=== PATIENT | female | born 1950 | race Two or more races ===

== ENCOUNTER → 2016-11-01 | Day surgery (SDC) | payer MEDICARE, OTHER ==
[~2016-11-01] VITALS: Ht 157.5 cm; Wt 62.6 kg
[~2016-11-01] MED LIST: ACET325T9 PO; ALBU2.5V5 NEB; ALEN70TA5 PO; ALLO100T PO; ALLO100T66 PO; AMLO10TA4 PO; AMOX1TAB61 PO; ASPI81TA44 PO; BUPIVACAINE MPF 0.5% 30 ML VIAL. ONE; CALC-431 PO; CARV3.12 PO; CEFAZOLIN 1GM IVPB FOR OMNI 50 ML IV PRN; CETI10TA16 PO; CLON0.1T PO; CLON1PAT2 TD; CYCL10TA2 PO; Clonidine TD; DESFLURANE 31 TO 60 MINUTES IH ONE; DEXAMETHASONE SOD PHOS 20 MG/5 ML VIAL. ONE; DOCU-27 PO; Doxycycline Hyclate PO; ERGO500012 PO; FENTANYL PF 100 MCG/2 ML VIAL. IV PRN; FENTANYL PF 100 MCG/2 ML VIAL. ONE; FLUT9.9S NS; GABA-585 PO; GUAI-42 PO; HYDR-2762 PO; HYDR-971 PO; HYDR1TAB26 PO; HYDROCODONE/APAP 7.5/325MG TABLET. PO ONE; HYDROMORPHONE 2 MG/ML VIAL. IV PRN; INSU100I13 SQ; INSU100I17 SQ; INSU100V5 IJ; IV NORMAL SALINE 1000ML BAG 1,000 ML IV ONE; IV RINGERS,LACTATED 1000ML 1,000 ML IV SCH; LABE200T2 PO; LABE200T24 PO; LEVO500T38 PO; LIDOCAINE 1% 1 ML SYRINGE. ID PRN; LIDOCAINE 1% 20 ML VIAL. ONE; LIDOCAINE 2% 100 MG/5 ML DISP.SYRIN. ONE; LORA10TA3 PO; LOSA100T2 PO; LOSA50TA2 PO; METO25TA4 PO; MORPHINE SULFATE 2 MG/ML DISP.SYRIN. IV PRN; MULT-503 PO; NPH,100I SQ; OMEP20CA5 PO; ONDA4TAB7 PO; ONDANSETRON PF 4 MG/2 ML VIAL. IV PRN; ONDANSETRON PF 4 MG/2 ML VIAL. ONE; OXYC-244 PO; POLY17PO5 PO; PRED20TA PO; PROCHLORPERAZINE 10 MG/2 ML VIAL. IV PRN; PROPOFOL 20 ML IV ONE; SEVE800T PO; SEVE800T9 PO; VIT1TABL71 PO
--- NOTE | 2016-11-01 11:39 | PDOC ---
BRIEF OPERATIVE NOTE Date: Nov 01, 2016 Pre-Op Diagnosis Closed L pilon fx Post-Op Diagnosis same Procedure Performed Removal ex-fix, L ankle Surgeon Pattie Oliver Anesthesia Type: General, Local Blood Loss 5mL Complications none KHARI REA II, MD Nov 01, 2016 11:39
[2016-11-01 11:40] LABS: CALCIUM 8.6 mg/dL (8.5-10.1); CREATININE 4.1 mg/dL (0.6-1.0); GFR 10.8; POTASSIUM 3.6 mmol/L (3.5-5.1)
[2016-11-01 13:36] VITALS: BP 120/84
--- NOTE | 2016-11-01 16:14 | OP ---
DATE OF SURGERY: 11/01/2016 SURGEON: Rodney Rea MD MINIATURE SET CONSTRUCTOR: Jen Oliver. ANESTHESIA: General. PREOPERATIVE DIAGNOSIS: Closed left pilon fracture. POSTOPERATIVE DIAGNOSIS: Closed left pilon fracture. PROCEDURE PERFORMED: Removal of external fixator. COMPLICATIONS: None. BLOOD LOSS: 5 mL. REASON FOR PROCEDURE: The patient is a very pleasant 66-year-old female with diabetes, on dialysis who had overall pretty good alignment of her distal tibia fracture that we elected to place into an external fixator as it was starting to lose some position. This was approximately 6 weeks ago. I routinely followed her as an outpatient. She is brought back today for planned ex-fix removal. DESCRIPTION OF PROCEDURE: The patient was greeted in the preoperative area by myself where correct extremity was marked and verified. Antibiotics were started en route to the OR. Once in the OR, she had successful induction of general anesthesia after being transferred gently supine to the OR table and secured to the bed. We then proceeded to prep and drape her left lower extremity in our usual sterile fashion and then conducted our standard preoperative timeout. We then used the wrenches to remove the ex-fix bars and connectors followed by T-handle to remove the pins of her tibia. Her calcaneal pin was quite loose and I was able to unscrew it just under hand power with my fingers. I then thoroughly curetted out all of the incisions and bone. We then irrigated out the pin sites. After this, a sterile dressing including gauze, sterile cast padding and an Regulo wrap were applied to the left lower extremity. She was then placed into a Cam boot. She tolerated surgery well. No complications. Once in the surgery, she was transferred gently supine to the recovery room cart and taken to PACU in a stable and extubated condition. Postop plan is to discharge her back to her facility. She will follow up with me in 2 weeks, sooner should problems arise. RODNEY REA MD DR: ELVIN/ronaldo JOB#: [id number] / [id number] NISHA
== END | disposition home or self-care (01) ==
LOC: SURG 10:30
PROVIDERS: ATTEND Orthopaedic Surgery Sports Medicine
DX: S82.872A Displaced pilon fracture of left tibia, initial encounter for closed fracture (principal); X58.XXXA Exposure to other specified factors, initial encounter; Y93.9 Activity, unspecified; Y92.9 Unspecified place or not applicable; Y99.9 Unspecified external cause status; I10 Essential (primary) hypertension; J40 Bronchitis, not specified as acute or chronic; Z90.49 Acquired absence of other specified parts of digestive tract; K21.9 Gastro-esophageal reflux disease without esophagitis; Z98.51 Tubal ligation status; Z90.710 Acquired absence of both cervix and uterus; M06.9 Rheumatoid arthritis, unspecified; M10.9 Gout, unspecified; E11.9 Type 2 diabetes mellitus without complications; D64.9 Anemia, unspecified
CPT/HCPCS: 20694; 36415; 76000; 80048; 82947; J0690; J1100; J2405; J2704; J3010; J3490; A4215; J7120

== ENCOUNTER 2017-02-21 10:38 | Emergency (ER) | payer MEDICARE, OTHER ==
[~2017-02-21] VITALS: Ht 157.5 cm; Wt 67.3 kg
[~2017-02-21 10:38] MED LIST changes: -BUPIVACAINE MPF 0.5% 30 ML VIAL. ONE; -CEFAZOLIN 1GM IVPB FOR OMNI 50 ML IV PRN; -DESFLURANE 31 TO 60 MINUTES IH ONE; -DEXAMETHASONE SOD PHOS 20 MG/5 ML VIAL. ONE; -FENTANYL PF 100 MCG/2 ML VIAL. IV PRN; -FENTANYL PF 100 MCG/2 ML VIAL. ONE; -HYDROCODONE/APAP 7.5/325MG TABLET. PO ONE; -HYDROMORPHONE 2 MG/ML VIAL. IV PRN; -IV NORMAL SALINE 1000ML BAG 1,000 ML IV ONE; -IV RINGERS,LACTATED 1000ML 1,000 ML IV SCH; -LIDOCAINE 1% 1 ML SYRINGE. ID PRN; -LIDOCAINE 1% 20 ML VIAL. ONE; -LIDOCAINE 2% 100 MG/5 ML DISP.SYRIN. ONE; -MORPHINE SULFATE 2 MG/ML DISP.SYRIN. IV PRN; -ONDANSETRON PF 4 MG/2 ML VIAL. IV PRN; -ONDANSETRON PF 4 MG/2 ML VIAL. ONE; +POLY17PO29 PO; -POLY17PO5 PO; -PROCHLORPERAZINE 10 MG/2 ML VIAL. IV PRN; -PROPOFOL 20 ML IV ONE
[2017-02-21 10:40] VITALS: BP 206/101
--- NOTE | 2017-02-21 11:05 | PHYS DOC ---
Past Medical History Past Medical History: Bronchitis, Diabetes-Type II, Hypertension, Renal Failure , Other Additional Past Medical Histor: c diff , drop foot syndrome LEFT, DIALYSIS Past Surgical History: , Tonsillectomy, Tubal ligation, Other Additional Past Surgical Histo: bilateral rotator cuff; dialysis shunt left forearm Alcohol Use: None Drug Use: None Adult General Chief Complaint Chief Complaint: DIALYSIS PROBLEM HPI HPI Patient is a 66 year old female who presents with bleeding from dialysis shunt. The patient states she underwent usual dialysis this AM per her usual schedule. After conclusion of treatment, staff were unable to control bleeding from distal puncture site over right forearm shunt. She states they applied pressure dressings but bleeding continued. No prior similar issues. Denies use of blood thinners. Denies bleeding from gums, hematochezia/melena, hematuria. PCP is Dr. Matias & her geographic area intelligence officer is Dr. Velasquez. Review of Systems Review of Systems Constitutional: Denies fever or chills HENT: Denies nasal congestion or sore throat Respiratory: Denies cough or shortness of breath Cardiovascular: Denies chest pain or edema, reports bleeding from AV shunt GI: Denies abdominal pain Musculoskeletal: Denies back pain or joint pain Integument: Denies rash Neurologic: Denies headache Allergies Allergies Allergies Coded Allergies Type Severity Reaction Last Updated Verified No Known Drug Allergies 11/01/16 No Physical Exam Physical Exam Constitutional: Well developed, well nourished, no acute distress, non-toxic appearance. HENT: Normocephalic, atraumatic, bilateral external ears normal, oropharynx moist, nose normal. Eyes: conjunctiva normal, no discharge. Cardiovascular: no edema. Lungs & Thorax: no respiratory distress. Abdomen: nondistended. Skin: Warm, dry, no erythema, no rash. Extremities: right forearm bandage removed, no active bleeding from shunt. radial pulse 2+, sensation intact to hand, normal lining brusher strength Neurologic: Alert and oriented X 3 Current Patient Data Vital Signs Vital Signs Date Time Temp Pulse Resp B/P (MAP) Pulse Ox O2 Delivery O2 Flow Rate FiO2 02/21/17 10:40 97.7 88 16 206/101 (136) 98 Room Air 97.7 EKG EKG [] Radiology/Procedures Radiology/Procedures [] Course & Med Decision Making Course & Med Decision Making Pertinent Labs and Imaging studies reviewed. (See chart for details) The patient presents with bleeding from shunt after dialysis, which resolved prior to arrival. RN applied dressing. Recommend follow up as needed with PCP & nephrology, continue dialysis as scheduled. Come back for uncontrolled bleeding or otherwise worsening condition. Discharged home in stable condition. [] Dragon Disclaimer Dragon Disclaimer This electronic medical record was generated, in whole or in part, using a voice recognition dictation system. Departure Departure Impression: Primary Impression: Bleeding from dialysis shunt Disposition: HOME, SELF-CARE Condition: IMPROVED Referrals: ARELI MATIAS MD (PCP) Patient Instructions: Dialysis, Care After Additional Instructions: You were seen in the emergency department today for bleeding from dialysis shunt. The bleeding resolved & no additional treatment was needed. Please correspond with primary care & nephrology for additional concerns. Come back for uncontrolled bleeding or any otherwise worsening condition. JOCELYN DELGADO MD February 21, 2017 11:05
== END 2017-02-21 11:30 | disposition home or self-care (01) ==
LOC: ER 10:38
DX: T82.838A Hemorrhage due to vascular prosthetic devices, implants and grafts, initial encounter (principal); E11.22 Type 2 diabetes mellitus with diabetic chronic kidney disease; I12.9 Hypertensive chronic kidney disease with stage 1 through stage 4 chronic kidney disease, or unspecified chronic kidney disease; N18.9 Chronic kidney disease, unspecified; M21.372 Foot drop, left foot; Z99.2 Dependence on renal dialysis; Y84.1 Kidney dialysis as the cause of abnormal reaction of the patient, or of later complication, without mention of misadventure at the time of the procedure; Y92.89 Other specified places as the place of occurrence of the external cause
CPT/HCPCS: 99284

== ENCOUNTER 2017-04-06 06:56 | Inpatient (IN) | payer OTHER ==
[~2017-04-06] VITALS: Ht 157.5 cm; Wt 67.8 kg
[~2017-04-06 06:56] MED LIST changes: +DOCU-109 PO; -DOCU-27 PO; -ERGO500012 PO; +ERGO500027 PO; +GUAI-107 PO; -GUAI-42 PO; -LEVO500T38 PO; +LEVO500T59 PO; -OXYC-244 PO; +OXYC-327 PO; -SEVE800T PO; +SEVE800T8 PO
--- NOTE | 2017-04-06 07:14 | PHYS DOC ---
Past Medical History Past Medical History: Bronchitis, Diabetes-Type II, Hypertension, Renal Failure , Other Additional Past Medical Histor: c diff , drop foot syndrome LEFT, DIALYSIS Past Surgical History: , Tonsillectomy, Tubal ligation, Other Additional Past Surgical Histo: bilateral rotator cuff; dialysis shunt left forearm Alcohol Use: None Drug Use: None Adult General Chief Complaint Chief Complaint: CHEST PAIN HPI HPI Patient is a 67 year old female who presents with complaint of chest pain for the past 3 days. Patient states that her pain is in the middle of her chest. Patient describes the pain is sharp. Patient rates her pain currently as 9 out of 10. Patient states the pain worsens when she takes a deep breath and with cough. Patient has history of type 2 diabetes mellitus, end-stage renal disease , and hypertension. The patient states that she is due for dialysis today, however due to the pain she has not gone to get her treatment. Patient follows a Dr. Banuelos for primary care. Patient denies any known history of coronary artery disease and has not had any recent cardiac stress testing. Patient denies any fevers but has had associated nausea with her symptoms. Review of Systems Review of Systems Constitutional: Denies fever or chills [] Eyes: Denies change in visual acuity, redness, or eye pain [] HENT: Denies nasal congestion or sore throat [] Respiratory: Denies cough or shortness of breath [] Cardiovascular: Chest pain, denies edema [] GI: Denies abdominal pain, nausea, vomiting, bloody stools or diarrhea [] : Denies dysuria or hematuria [] Musculoskeletal: Denies back pain or joint pain [] Integument: Denies rash or skin lesions [] Neurologic: Denies headache, focal weakness or sensory changes [] Current Medications Current Medications Current Medications Medications (Trade) Dose Ordered Sig/Bill Start Time Stop Time Status Last Admin Dose Admin Aspirin (Children'S Aspirin) 324 mg 1X ONCE 04/06/17 07:30 04/06/17 07:31 DC 04/06/17 07:39 324 MG Fentanyl Citrate (Fentanyl 2ml Vial) 50 mcg PRN Q15MIN PRN 04/06/17 07:15 04/07/17 07:14 04/06/17 07:39 50 MCG Hydralazine HCl (Apresoline) 10 mg 1X ONCE 04/06/17 07:45 04/06/17 07:46 DC 04/06/17 07:40 10 MG Ondansetron HCl (Zofran) 4 mg 1X ONCE 04/06/17 07:30 04/06/17 07:31 DC 04/06/17 07:40 4 MG Allergies Allergies Allergies Coded Allergies Type Severity Reaction Last Updated Verified No Known Drug Allergies 11/01/16 No Physical Exam Physical Exam Constitutional: Alert, afebrile, appears in moderate discomfort. [] HENT: Normocephalic, atraumatic, bilateral external ears normal, oropharynx moist, no oral exudates, nose normal. [] Eyes: PERRLA, EOMI, conjunctiva normal, no discharge. [] Neck: Normal range of motion, no tenderness, supple, no stridor. [] Cardiovascular:Heart rate regular rhythm, no murmur [] Lungs & Thorax: Bilateral breath sounds clear to auscultation, left sided chest tenderness to palpation [] Abdomen: Bowel sounds normal, soft, no tenderness, no masses, no pulsatile masses. [] Skin: Warm, dry, no erythema, no rash. [] Back: No tenderness, no CVA tenderness. [] Extremities: Left forearm fistula with palpable thrill, no tenderness, no cyanosis, no clubbing, ROM intact, trace pedal edema bilaterally. [] Neurologic: Alert and oriented X 3, normal motor function, normal sensory function, no focal deficits noted. [] Current Patient Data Vital Signs Vital Signs Date Time Temp Pulse Resp B/P (MAP) Pulse Ox O2 Delivery O2 Flow Rate FiO2 04/06/17 07:40 75 203/84 04/06/17 07:39 18 Room Air 04/06/17 07:34 88 04/06/17 07:10 97.5 97.5 Lab Values Laboratory Tests Test 04/06/17 07:30 White Blood Count 7.8 x10^3/uL (4.0-11.0) Red Blood Count 3.72 x10^6/uL (3.50-5.40) Hemoglobin 12.1 g/dL (12.0-15.5) Hematocrit 36.7 % (36.0-47.0) Mean Corpuscular Volume 99 fL (79-100) Mean Corpuscular Hemoglobin 33 pg (25-35) Mean Corpuscular Hemoglobin Concent 33 g/dL (31-37) Red Cell Distribution Width 14.6 % (11.5-14.5) H Platelet Count 164 x10^3/uL (140-400) Neutrophils (%) (Auto) 71 % (31-73) Lymphocytes (%) (Auto) 18 % (24-48) L Monocytes (%) (Auto) 8 % (0-9) Eosinophils (%) (Auto) 2 % (0-3) Basophils (%) (Auto) 1 % (0-3) Neutrophils # (Auto) 5.6 x10^3uL (1.8-7.7) Lymphocytes # (Auto) 1.4 x10^3/uL (1.0-4.8) Monocytes # (Auto) 0.7 x10^3/uL (0.0-1.1) Eosinophils # (Auto) 0.2 x10^3/uL (0.0-0.7) Basophils # (Auto) 0.1 x10^3/uL (0.0-0.2) Sodium Level 142 mmol/L (136-145) Potassium Level 4.8 mmol/L (3.5-5.1) Chloride Level 100 mmol/L (98-107) Carbon Dioxide Level 32 mmol/L (21-32) Anion Gap 10 (6-14) Blood Urea Nitrogen 58 mg/dL (7-20) H Creatinine 8.0 mg/dL (0.6-1.0) H Estimated GFR (Cockcroft-Gault) 5.0 BUN/Creatinine Ratio 7 (6-20) Glucose Level 158 mg/dL (70-99) H Calcium Level 8.4 mg/dL (8.5-10.1) L Magnesium Level 1.9 mg/dL (1.8-2.4) Total Bilirubin 0.7 mg/dL (0.2-1.0) Aspartate Amino Transferase (AST) 28 U/L (15-37) Alanine Aminotransferase (ALT) 24 U/L (14-59) Alkaline Phosphatase 687 U/L (46-116) H Creatine Kinase 144 U/L (26-192) Creatine Kinase MB (Mass) 2.6 ng/mL (0.0-3.6) Creatine Kinase MB Relative Index 1.8 % (0-4) Troponin I Quantitative < 0.017 ng/mL (0.000-0.055) YK-Ssf-T-Type Natriuretic Peptide 75367 pg/mL (0-124) H Total Protein 7.6 g/dL (6.4-8.2) Albumin 3.5 g/dL (3.4-5.0) Albumin/Globulin Ratio 0.9 (1.0-1.7) L Lipase 95 U/L (73-393) Laboratory Tests 04/06/17 07:30 Laboratory Tests 04/06/17 07:30 EKG EKG Interpreted by me: Heart rate 76, sinus rhythm, normal intervals, normal axis, no acute ST/T-wave abnormalities present [] Radiology/Procedures Radiology/Procedures [facility] [address] [place] [address] IMAGING REPORT Signed PATIENT: ROBBIN LYNN ACCOUNT: [id number] : 1950 LOCATION: ER AGE: 67 SEX: F EXAM STATUS: PRE ER ORD. PHYSICIAN: ERNESTO ROSE MD REASON: chest pain PROCEDURE: PORTABLE CHEST 1V Portable chest, 04/06/2017: History: Chest pain Comparison is made to a study from 11/03/2015. The heart is mildly enlarged. There are prominent perihilar markings much of which was also present on the previous study. There is a new linear right parahilar opacity suggesting atelectasis versus a tiny amount of fluid in the minor fissure. The lateral costophrenic angles are sharp. The bony structures are demineralized. IMPRESSION: 1. Mild cardiomegaly. 2. Mildly bilateral perihilar atelectasis/infiltrate superimposed upon scarring. Low-grade congestive heart failure is suspected. DICTATED and SIGNED BY: VALERIY GUTIERREZ MD DATE: 04/06/17 0728 CC: ERNESTO ROSE MD; NICOLASA BANUELOS MD ~ [] Course & Med Decision Making Course & Med Decision Making Pertinent Labs and Imaging studies reviewed. (See chart for details) Patient's oxygen saturation saturations were in the mid 80s and patient was placed on supplemental oxygen in the emergency department. Patient's chest x- ray shows signs of pulmonary edema consistent with fluid overload. Patient's blood pressure also was addressed with IV hydralazine which reduced the patient' s blood pressure to 175 systolic. Due to hypoxia and fluid overload as well as active chest pain, the patient will need to be admitted to the hospital for further evaluation and treatment. I spoke with Dr. Alejandro who is on-call for Dr. Banuelos and he admitted the patient to the hospital. Consults were placed to Dr. Viveros in Cardiology and Dr. Velasquez of nephrology to follow patient in hospital. Dragon Disclaimer Dragon Disclaimer This electronic medical record was generated, in whole or in part, using a voice recognition dictation system. Departure Departure Impression: Primary Impression: Fluid overload Additional Impressions: Accelerated hypertension Chest pain Hypoxia End stage renal disease Disposition: ADMITTED INPATIENT Admitting Physician: Nicolasa Banuelos Condition: GUARDED Referrals: NICOLASA BANUELOS MD (PCP) Problem Qualifiers Primary Impression: Fluid overload Hypervolemia type: unspecified Qualified Codes: E87.70 - Fluid overload, unspecified Additional Impressions: Chest pain Chest pain type: unspecified Qualified Codes: R07.9 - Chest pain, unspecified ERNESTO ROSE MD Apr 06, 2017 07:14
[2017-04-06] MEDS ORDERED: fentaNYL PF VIAL 100 MCG/2 ML VIAL IV PRN ×2 (07:15→08:15)
[2017-04-06] MEDS ORDERED: ASPIRIN CHEWABLE 81 MG TABLET. PO ONE (07:30)
[2017-04-06] MEDS ORDERED: ONDANSETRON PF 4 MG/2 ML VIAL. IV ONE (07:30)
--- NOTE | 2017-04-06 07:35 | ACF ---
Admission Forms Criteria CHEST PAIN Clinical Indications for Admission to Inpatient Care (Place 'X' for any and all applicable criteria): Admission is indicated for chest pain and ANY ONE of the following(1)(2)(3)(4)(5 ): [ ]I. Angina with acute coronary syndrome (Also use Myocardial Infarction or Angina guideline) [ ]II. Hemodynamic instability [ ]III. Angina needing acute intervention as indicated by ALL of the following( 11)(12): [ ]a) Unstable angina is present as indicated by angina that is ANY ONE of the following: [ ]i) New onset [ ]ii) Nocturnal [ ]iii) Prolonged at rest [ ]iv) Progressive [ ]b) Angina warrants acute intervention as indicated by ANY ONE of the following: [ ]i) Recurrent angina (e.g, not responding as previously to treatment) [ ]ii) Angina at rest or with low-level activities despite initial medical therapy [ ]iii) New or presumably new ST-segment depression on ECG [ ]iv) Signs or symptoms of heart failure (eg, dyspnea, pulmonary edema) [ ]v) New or worsening mitral regurgitation [ ]vi) Hemodynamic instability [ ]vii) Dangerous arrhythmia (eg, sustained ventricular tachycardia) [ ]viii) History of percutaneous coronary intervention within 6 months [ ]ix) History of coronary artery bypass graft surgery [ ]x) RENALDO risk score of 2 or greater[A] [ ]xi) History of Diabetes(14) [ ]xii) High-risk cardiac ischemia findings on noninvasive testing (e.g, echocardiogram, treadmill testing, nuclear scan) [ ]xiii) Chronic renal insufficiency (ie, estimated GFR less than 60 mL/min/1.732m) [ ]xiv) Left ventricular ejection fraction less than 40% [ ]IV. Evidence of DE (eg, cardiac biomarkers positive, ST-segment elevation on ECG) also use Myocardial Infarction Criteria Form. [ ]V. Pulmonary edema [ ]. Respiratory distress [ ]VII. Chest pain indicative of serious diagnosis other than coronary artery disease (eg, aortic dissection) [ ]VIII. Contraindications and/or Inappropriate clinical situations for Observational Care in patients with Chest Pain, when ANY ONE of the following is required: [ ]a) Patient with risk factor for pulmonary embolism, acute coronary syndrome and myocardial infarction (18) [ ]b) Patient with Pulmonary embolism require an average LOS of 4.3 days, therefore emergency department observation management is inappropriate 18,23 [ ]c) Painful condition/s in the elderly, have the highest rate of recidivism after emergency department observation management (10.8%) 20,21,22 [ ]d) Elevated cardiac biomarker requires intensive and exhaustive care (19) [X]IX. General contraindications and/or Inappropriate clinical situations for Observational Care in patients with Chest Pain, when ANY ONE of the following is required: [ ]a) Prediction of prolongation of LOS based on ANY ONE of the following may be considered as a contraindication for observational care 2, 3, 4, 5, 6, 7, 8, 9, 10, 11 [ ]i) Age > 65 yrs. [ ]ii) Patient arriving by ambulance [ ]iii) Patient with high acuity [ ]iv) Patient requiring vital sign monitoring [ ]v) Patient on IV medication [X]b) Systolic blood pressures 180mmHg 3,12 [ ]c) Patient with altered mental status including delirium and other alteration of consciousness, (3) [ ]d) Patient whose discharge disposition will be to a [facility] home or rehabilitation home should not be managed in Emergency Department Observation Unit. CMS rule requires 3 days hospital stay before such placement. 3,13 [ ]e) Patient with failure to thrive due to broad array of etiologies 3,16,17 [ ]f) Inability to ambulate 3,14 Extended stay beyond goal length of stay may be needed for (1)(28): [ ]a) Specific condition diagnosed after evaluation (eg, pulmonary embolism, aortic dissection) [ ]b) Unstable angina [ ]c) Continued suspicion of acute coronary syndrome with inability to complete needed cardiac evaluation (eg, patient clinically unable to undergo stress testing) [ ]d) Myocardial infarction (Contents from ANGINA and CHEST PAIN clinical indications for admission to inpatient care have been integrated in this form) The original [email or web address] content created by [employer] has been revised. The portions of the content which have been revised are identified through the use of italic text or in bold, and [email or web address] has neither reviewed nor approved the modified material. All other unmodified content is copyright [employer]. Please see references footnoted in the original [email or web address] edition 2016 Admission Criteria Met?: Yes CHARISMA RODRIGUEZ Apr 06, 2017 07:35
--- NOTE | 2017-04-06 07:35 | RAD ---
Portable chest, 04/06/2017: History: Chest pain Comparison is made to a study from 11/03/2015. The heart is mildly enlarged. There are prominent perihilar markings much of which was also present on the previous study. There is a new linear right parahilar opacity suggesting atelectasis versus a tiny amount of fluid in the minor fissure. The lateral costophrenic angles are sharp. The bony structures are demineralized. IMPRESSION: 1. Mild cardiomegaly. 2. Mildly bilateral perihilar atelectasis/infiltrate superimposed upon scarring. Low-grade congestive heart failure is suspected.
[2017-04-06 07:42] LABS: BASO # 0.1 x10^3/uL (0.0-0.2); BASO % 1 % (0-3); EOS % 2 % (0-3); HEMATOCRIT 36.7 % (36.0-47.0); HEMOGLOBIN 12.1 g/dL (12.0-15.5); LYMPH # 1.4 x10^3/uL (1.0-4.8); LYMPH % 18 % (24-48); MEAN CORPUSCULAR HEMOGLOBIN 33 pg (25-35); MEAN CORPUSCULAR HGB CONC 33 g/dL (31-37); MEAN CORPUSCULAR VOLUME 99 fL (79-100); MONO % 8 % (0-9); NEUT % 71 % (31-73); PLATELET COUNT 164 x10^3/uL (140-400); RED BLOOD COUNT 3.72 x10^6/uL (3.50-5.40); RED CELL DISTRIBUTION WIDTH 14.6 % (11.5-14.5); WHITE BLOOD COUNT 7.8 x10^3/uL (4.0-11.0)
[2017-04-06] MEDS ORDERED: hydrALAZINE 20 MG/ML VIAL. IVP ONE (07:45)
[2017-04-06 07:50] LABS: CALCIUM 8.4 mg/dL (8.5-10.1); POTASSIUM 4.8 mmol/L (3.5-5.1)
[2017-04-06 07:56] LABS: ALBUMIN 3.5 g/dL (3.4-5.0); ALBUMIN/GLOBULIN RATIO 0.9 (1.0-1.7); MAGNESIUM 1.9 mg/dL (1.8-2.4); TOTAL BILIRUBIN 0.7 mg/dL (0.2-1.0); TOTAL PROTEIN 7.6 g/dL (6.4-8.2)
[2017-04-06 08:13] LABS: CKMB MASS 2.6 ng/mL (0.0-3.6)
[2017-04-06] MEDS ORDERED: ACETAMINOPHEN 325 MG TABLET. PO PRN (08:15)
[2017-04-06] MEDS ORDERED: ONDANSETRON PF 4 MG/2 ML VIAL. IV PRN (08:15)
--- NOTE | 2017-04-06 10:40 | PDOC2 ---
CARDIAC CONSULT DATE OF CONSULT Date of Consult DATE: 04/06/17 TIME: 10:30 REASON FOR CONSULT Reason for Consult: Chest pain, HTN REFERRING PHYSICIAN Referring Physician: Sudheer SOURCE Source: Chart review, Patient HISTORY OF PRESENT ILLNESS HISTORY OF PRESENT ILLNESS This is a pleasant 67 yo female admitted for complains of chest tightness. Reports of chest tightness that has been happening in the last 3 days ranging from 5-10 minutes each episode. She was suppose to have dialysis today but was told to go to ED. Associated symptoms of PARISI in the last few days with decrease tolerance with her regular ADLs. Also with nausea, diaphoresis, and SOA at rest. She is significant for nonobstructive CAD in the past and ARPIT as well which was treated in 2013. Notable for PND at times and insomnia, no orthopnea, positive leg swelling. Presently no orthopnea and still having mild chest tightness. Pt has been complaint with her dialysis, BG mean 150s. 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; LAV shunt ) FAMILY HISTORY Family History: Diabetes, Hypertension, Stroke SOCIAL HISTORY Smoke: No ALCOHOL: none Drugs: None Lives: with Family CURRENT MEDICATIONS CURRENT MEDICATIONS Current Medications Medications (Trade) Dose Ordered Sig/Bill Route PRN Reason Start Time Stop Time Status Last Admin Dose Admin Aspirin (Children'S Aspirin) 324 mg 1X ONCE PO 04/06/17 07:30 04/06/17 07:31 DC 04/06/17 07:39 Fentanyl Citrate (Fentanyl 2ml Vial) 50 mcg PRN Q15MIN PRN IV PAIN GREATER THAN 3/10 04/06/17 07:15 04/07/17 07:14 04/06/17 07:39 Ondansetron HCl (Zofran) 4 mg 1X ONCE IV 04/06/17 07:30 04/06/17 07:31 DC 04/06/17 07:40 Hydralazine HCl (Apresoline) 10 mg 1X ONCE IVP 04/06/17 07:45 04/06/17 07:46 DC 04/06/17 07:40 ALLERGIES ALLERGIES: Coded Allergies: No Known Drug Allergies (Unverified , 11/01/16) ROS Review of System 14 point ROS evaluated with pertinent positives noted per HPI PHYSICAL EXAM General: Alert, Oriented X3, Cooperative, No acute distress HEENT: Atraumatic, Mucous membr. moist/pink Lungs: Other (bibasilar crackles) Heart: Regular rate (SR), Normal S1, Normal S2, Other (2/6 systolic murmur to LLS border; S4) Abdomen: Soft, No tenderness Extremities: No cyanosis, Other (2-3+ bilateral LE pitting edema) Skin: No breakdown, No significant lesion Neuro: Normal speech, Sensation intact Psych/Mental Status: Mental status NL, Mood NL MUSCULOSKELETAL: Osteoarthritic changes both hands VITALS VITALS Vital Signs Date Time Temp Pulse Resp B/P (MAP) Pulse Ox O2 Delivery O2 Flow Rate FiO2 04/06/17 09:35 Nasal Cannula 2.0 04/06/17 08:34 74 18 169/80 (109) 97 04/06/17 07:10 97.5 97.5 LABS Lab: Laboratory Tests Test 04/06/17 07:30 White Blood Count 7.8 x10^3/uL (4.0-11.0) Red Blood Count 3.72 x10^6/uL (3.50-5.40) Hemoglobin 12.1 g/dL (12.0-15.5) Hematocrit 36.7 % (36.0-47.0) Mean Corpuscular Volume 99 fL (79-100) Mean Corpuscular Hemoglobin 33 pg (25-35) Mean Corpuscular Hemoglobin Concent 33 g/dL (31-37) Red Cell Distribution Width 14.6 % (11.5-14.5) Platelet Count 164 x10^3/uL (140-400) Neutrophils (%) (Auto) 71 % (31-73) Lymphocytes (%) (Auto) 18 % (24-48) Monocytes (%) (Auto) 8 % (0-9) Eosinophils (%) (Auto) 2 % (0-3) Basophils (%) (Auto) 1 % (0-3) Neutrophils # (Auto) 5.6 x10^3uL (1.8-7.7) Lymphocytes # (Auto) 1.4 x10^3/uL (1.0-4.8) Monocytes # (Auto) 0.7 x10^3/uL (0.0-1.1) Eosinophils # (Auto) 0.2 x10^3/uL (0.0-0.7) Basophils # (Auto) 0.1 x10^3/uL (0.0-0.2) Sodium Level 142 mmol/L (136-145) Potassium Level 4.8 mmol/L (3.5-5.1) Chloride Level 100 mmol/L (98-107) Carbon Dioxide Level 32 mmol/L (21-32) Anion Gap 10 (6-14) Blood Urea Nitrogen 58 mg/dL (7-20) Creatinine 8.0 mg/dL (0.6-1.0) Estimated GFR (Cockcroft-Gault) 5.0 BUN/Creatinine Ratio 7 (6-20) Glucose Level 158 mg/dL (70-99) Calcium Level 8.4 mg/dL (8.5-10.1) Magnesium Level 1.9 mg/dL (1.8-2.4) Total Bilirubin 0.7 mg/dL (0.2-1.0) Aspartate Amino Transf (AST/SGOT) 28 U/L (15-37) Alanine Aminotransferase (ALT/SGPT) 24 U/L (14-59) Alkaline Phosphatase 687 U/L (46-116) Creatine Kinase 144 U/L (26-192) Creatine Kinase MB (Mass) 2.6 ng/mL (0.0-3.6) Creatine Kinase MB Relative Index 1.8 % (0-4) Troponin I Quantitative < 0.017 ng/mL (0.000-0.055) FY-Hbk-H-Type Natriuretic Peptide 84811 pg/mL (0-124) Total Protein 7.6 g/dL (6.4-8.2) Albumin 3.5 g/dL (3.4-5.0) Albumin/Globulin Ratio 0.9 (1.0-1.7) Lipase 95 U/L (73-393) ECHOCARDIOGRAM ECHOCARDIOGRAM <Conclusion> The left ventricle is normal size. The Ejection Fraction is 50-55%. There is no significant aortic valvular stenosis. Doppler and Color Flow revealed no significant aortic regurgitation. Doppler and Color Flow revealed mild to moderate mitral regurgitation. Doppler and Color Flow revealed moderate tricuspid regurgitation. The PA pressure was estimated at 48 mmHg. There is no evidence of significant pericardial effusion. DATE: 12/11/14 1755 HEART CATH HEART CATH HISTORY The patient is a 63 year-old female with a history of : diabetes mellitus with Insulin treatment, hypertension. CASE TECHNIQUE The Right Groin was infiltrated with 2% Lidocaine subcutaneous anesthesia. PCI Technique Lesion Percutaneous coronary intervention was performed on the Right Renal. The lesion stenosis prior to intervention was 80% with RENALDO flow. Final angiography reveals 0 % stenosis with RENALDO flow. PCI Technique Lesion 2 Percutaneous Coronary Intervention was performed on the Left Renal. The lesion stenosis prior to intervention was 90% with RENALDO flow. Final angiography reveals 0 % stenosis with RENALDO flow. Conclusion dictated [id number] ANGIOGRAPHIC FINDINGS: 1. Mild calcific disease is noted particularly in the LAD. 2. Right dominant system was noted. 3. Left main was normal without any critical stenosis. The stent gave off a large LAD circumflex and a small ramus system. 4. The left anterior descending artery had minor luminal irregularities. Diagonal vessels were medium to small in size without any critical stenosis. 5. Ramus intermedius was free of any critical stenosis with minor plaquing noted at the ostium. 6. Circumflex was free of any critical disease with minor luminal irregularities. 7. The right coronary artery was a dominant vessel. Minor luminal irregularities and plaque was noted. Mid RCA had a 40% lesion noted. LEFT VENTRICULOGRAM: This revealed an ejection fraction of 55% to 60% with normal wall motion. No mitral insufficiency was noted. LV aortic pullback did not reveal any significant gradient. Left ventricular end-diastolic pressure was less than 15 mmHg. DATE: 11/14/13 1352 ASSESSMENT/PLAN ASSESSMENT/PLAN 1. Unstable angina 2. Accelerated HTN: improved 3. Acute on chronic diastolic CHF 4. CAD: [facility] 2013 with nonobstructive 40% to mid RCA 5. 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 ESRD 7. DM2/DPN/HLP 8. Hx of TIA Recommendations 1. Troponin series, TTE 2. Continue with secondary prevention. ASA 3. TSH/lipid panel. 4. Fluid off loading per HD 5. Hydralazine IV PRN, resume home norvasc, labetolol. 6. Discussed [facility] risks and benefits and agreeable to proceed. Informed daughter as well. Problems: DEB SALGADO MICROPHONE BOOM OPERATOR Apr 06, 2017 10:40
[2017-04-06 11:00] VITALS: BP 152/75
[2017-04-06] MEDS ORDERED: hydrALAZINE 20 MG/ML VIAL. IVP PRN (11:15)
[2017-04-06 11:18] LABS: CHOLESTEROL/HDL RATIO 2.5
[2017-04-06] MEDS: amLODIPine BESYLATE 10 MG TABLET PO SCH (11:30)
[2017-04-06] MEDS: LABETALOL HCL 200 MG TABLET PO SCH (11:30)
--- NOTE | 2017-04-06 13:00 | PDOC2 ---
CONSULT Date of Consult Date of Consult DATE: 04/06/17 TIME: 12:56 Reason for Consult Reason for Consult: ESRD, ? Fl Overload Referring Physician Referring Physician: Dr Banuelos Identification/Chief Complaint Chief Complaint CP Problems: Source Source: Chart review, Patient History of Present Illness Reason for Visit: as dictated Past Medical History Cardiovascular: CAD, CHF, HTN, Hyperlipidemia Pulmonary: Pneumonia CENTRAL NERVOUS SYSTEM: Periperal neuropathy, TIA GI: GERD Heme/Onc: Anemia NOS Hepatobiliary: Cholelithiasis Psych: Depression Musculoskeletal: Osteoarthritis, Other (bilateral foot drop) Rheumatologic: No pertinent hx Infectious disease: No pertinent hx Renal/: Chronic renal failure, UTI, Other (ARPIT) Endocrine: Diabetes (2) Dermatology: No pertinent hx Past Surgical History Past Surgical History: Arthroscopy (left ankle), Cholecystectomy, , Tonsillectomy, Hysterectomy, Other (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; LAV shunt ) Family History Family History: Diabetes, Hypertension, Stroke Social History No ALCOHOL: none Drugs: None Lives: with Family Domestic Violence: Neg Current Problem List Problem List Problems Medical Problems: (1) Accelerated hypertension Status: Acute (2) Chest pain Status: Acute (3) End stage renal disease Status: Acute (4) Fluid overload Status: Acute (5) Hypoxia Status: Acute Current Medications Current Medications Current Medications Aspirin (Children'S Aspirin) 324 mg 1X ONCE PO Last administered on 04/06/17 07:39; Start 04/06/17 at 07:30; Stop 04/06/17 at 07:31; Status DC Fentanyl Citrate (Fentanyl 2ml Vial) 50 mcg PRN Q15MIN PRN IV PAIN GREATER THAN 3/10 Last administered on 04/06/17 07:39; Start 04/06/17 at 07:15; Stop at 07:14 Ondansetron HCl (Zofran) 4 mg 1X ONCE IV Last administered on 04/06/17 07:40 ; Start 04/06/17 at 07:30; Stop 04/06/17 at 07:31; Status DC Hydralazine HCl (Apresoline) 10 mg 1X ONCE IVP Last administered on 04/06/17 07:40; Start 04/06/17 at 07:45; Stop 04/06/17 at 07:46; Status DC Ondansetron HCl (Zofran) 4 mg PRN Q8HRS PRN IV NAUSEA/VOMITING; Start 04/06/17 at 08:15; Stop 04/07/17 at 08:14 Fentanyl Citrate (Fentanyl 2ml Vial) 50 mcg PRN Q2HR PRN IV PAIN; Start at 08:15; Stop 04/07/17 at 08:14 Acetaminophen (Tylenol) 650 mg PRN Q4HRS PRN PO FEVER; Start 04/06/17 at 08:15 ; Stop 04/07/17 at 08:14 Hydralazine HCl (Apresoline) 10 mg PRN Q4HRS PRN IVP ELEVATED BP, SEE COMMENTS ; Start 04/06/17 at 11:15 Aspirin (Ecotrin) 81 mg DAILYWBKFT PO ; Start 04/07/17 at 08:00 Amlodipine Besylate (Norvasc) 10 mg DAILY PO ; Start 04/06/17 at 11:30 Labetalol HCl (Trandate) 400 mg DAILY PO ; Start 04/06/17 at 11:30 Active Scripts Active Novolog Flexpen (Insulin Aspart) 100 Unit/1 Ml Insuln.pen 0 Units SQ TIDWMEALS 30 Days Hydrocodone-Apap 7.5-325 (Hydrocodone Bit/Acetaminophen) 1 Each Tablet 1 Tab PO PRN Q4HRS PRN 10 Days Children's Aspirin (Aspirin) 81 Mg Tab.chew 81 Mg PO DAILYWBKFT 30 Days Zofran (Ondansetron Hcl) 4 Mg Tablet 1 Tab PO Q8HRS Cozaar (Losartan Potassium) 50 Mg Tablet 100 Mg PO DAILY Reported Cetirizine Hcl 10 Mg Tablet 1 Tab PO DAILY Thera-M (Multivits, W-Fe,Other Min) 1 Each Tablet 1 Each PO DAILY Miralax (Polyethylene Glycol 3350) 17 Gm Powd.pack 1 Packet PO DAILY Gabapentin 100 Mg Capsule 100 Mg PO QHS Colace (Docusate Sodium) 100 Mg Capsule 1 Cap PO DAILY Tylenol (Acetaminophen) 325 Mg Tablet 2 Tab PO PRN Q6HRS PRN Clonidine Hcl 0.1 Mg Tablet 0.1 Mg PO BID Alendronate Sodium 70 Mg Tablet 70 Mg PO WEEKLY Labetalol Hcl 200 Mg Tablet 2 Tab PO DAILY Flonase Allergy Relief (Fluticasone Propionate) 9.9 Ml [place].susp 2 Sprays NS DAILY Calcium 600 + Vit D 400 Caplet (Calcium Carbonate/Vitamin D3) 1 Each Tablet 1 Each PO DAILY Renvela (Sevelamer Carbonate) 800 Mg Tablet 2 Tab PO UFY212 Norvasc (Amlodipine Besylate) 10 Mg Tablet 10 Mg PO DAILY Windy-Abby Rx Tablet (Vit B Cmplx 3/Fa/Vit C/Biotin) 1 Each Tablet 1 Each PO DAILY Prilosec (Omeprazole) 20 Mg Capsule.dr 20 Mg PO DAILY Allergies Allergies: Coded Allergies: No Known Drug Allergies (Unverified , 11/01/16) ROS Review of System GEN: ? Fevers + Chills EYES: no new Visual Complaints ENT: no EN Drainage no Hearing deficiets CVS: no Orthopnea + CP RESP: + SOB + PARISI GI: + Nausea no Vomiting + Diarrhea : no Dysuria no Urgency HEME: no easy bruising no Palp Ly Nodes NEURO no Focal Weakness no Sz PSYCH: no Suicidal Ideation no Depression SKIN: no Rashes ENDO: no Polyuria or Polydipsia no Hot/Cold Intolerance MU SK: Ch Arthraigia nno Myalgia Physical Exam Physical Exam General Appearance: Awake Alert Oriented x 3 In no Distress Eyes: VIsion Unchanged Conjunctiva Normal EN: No EN Drainage Mucous Memb. moisgt Neck: no JVD min JVP Supple no Thyromegaly CVS: S1 S2 + Murmur No Gallop No Rub no Edema Resp: no Rales no Rhonchi no Acc. Muscle use GI: BAS +ve NO Bruit Non Tender Non Distended : no CVA tenderness; no Suprapubic Tenderness SKIN: no Rashes Breast Exam deferred Mu.Sk: Adequate ROM no Muscle Atrophy Heme: Unable to palpate Obvious LAD no Splenomegaly NEURO: Good Strength and Tone Cranial Nerves II - XII grossly intact Psych: no Depressed no Active hallucination Vital Signs Vital Signs Date Time Temp Pulse Resp B/P (MAP) Pulse Ox O2 Delivery O2 Flow Rate FiO2 04/06/17 11:00 97.8 72 18 152/75 (100) 94 Nasal Cannula 2.0 97.8 Assessment & Plan ESRD: Dialysis as below F 180 NR 3.5 Hrs 3 K 2.5 Ca 140 Na 30 HC03 Qb 350 + Qd 500+ Heparin 0 Units Uf to 1-2 kg below dry weight as tolerated May give 25-50 gms of 25% Albumin if needed to maintain Hemodynamic stability Treatment plan reviewed and discussed with dairy husbandman Anemia: no Epogen for hgb > 11; Transfuse with next HD as needed. HTN: Current BP meds reviewed. See orders for changes. 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 CHF On CXR - challenge EDW once Cardiac status cleared Bone & Mineral: Follow Phos and alter binder regimen as needed Discussed Plan of Care and prognosis etc. at length with pt Labs Labs Laboratory Tests Test 04/06/17 07:30 White Blood Count 7.8 x10^3/uL (4.0-11.0) Red Blood Count 3.72 x10^6/uL (3.50-5.40) Hemoglobin 12.1 g/dL (12.0-15.5) Hematocrit 36.7 % (36.0-47.0) Mean Corpuscular Volume 99 fL (79-100) Mean Corpuscular Hemoglobin 33 pg (25-35) Mean Corpuscular Hemoglobin Concent 33 g/dL (31-37) Red Cell Distribution Width 14.6 % (11.5-14.5) Platelet Count 164 x10^3/uL (140-400) Neutrophils (%) (Auto) 71 % (31-73) Lymphocytes (%) (Auto) 18 % (24-48) Monocytes (%) (Auto) 8 % (0-9) Eosinophils (%) (Auto) 2 % (0-3) Basophils (%) (Auto) 1 % (0-3) Neutrophils # (Auto) 5.6 x10^3uL (1.8-7.7) Lymphocytes # (Auto) 1.4 x10^3/uL (1.0-4.8) Monocytes # (Auto) 0.7 x10^3/uL (0.0-1.1) Eosinophils # (Auto) 0.2 x10^3/uL (0.0-0.7) Basophils # (Auto) 0.1 x10^3/uL (0.0-0.2) Sodium Level 142 mmol/L (136-145) Potassium Level 4.8 mmol/L (3.5-5.1) Chloride Level 100 mmol/L (98-107) Carbon Dioxide Level 32 mmol/L (21-32) Anion Gap 10 (6-14) Blood Urea Nitrogen 58 mg/dL (7-20) Creatinine 8.0 mg/dL (0.6-1.0) Estimated GFR (Cockcroft-Gault) 5.0 BUN/Creatinine Ratio 7 (6-20) Glucose Level 158 mg/dL (70-99) Calcium Level 8.4 mg/dL (8.5-10.1) Magnesium Level 1.9 mg/dL (1.8-2.4) Total Bilirubin 0.7 mg/dL (0.2-1.0) Aspartate Amino Transf (AST/SGOT) 28 U/L (15-37) Alanine Aminotransferase (ALT/SGPT) 24 U/L (14-59) Alkaline Phosphatase 687 U/L (46-116) Creatine Kinase 144 U/L (26-192) Creatine Kinase MB (Mass) 2.6 ng/mL (0.0-3.6) Creatine Kinase MB Relative Index 1.8 % (0-4) Troponin I Quantitative < 0.017 ng/mL (0.000-0.055) UD-Paq-O-Type Natriuretic Peptide 84817 pg/mL (0-124) Total Protein 7.6 g/dL (6.4-8.2) Albumin 3.5 g/dL (3.4-5.0) Albumin/Globulin Ratio 0.9 (1.0-1.7) Triglycerides Level 88 mg/dL (0-150) Cholesterol Level 148 mg/dL (0-200) LDL Cholesterol, Calculated 71 mg/dL (0-100) VLDL Cholesterol, Calculated 18 mg/dL (0-40) Non-HDL Cholesterol Calculated 89 mg/dL (0-129) HDL Cholesterol 59 mg/dL (40-60) Cholesterol/HDL Ratio 2.5 Lipase 95 U/L (73-393) Thyroid Stimulating Hormone (TSH) 1.948 uIU/mL (0.358-3.74) Laboratory Tests Test 04/06/17 07:30 White Blood Count 7.8 x10^3/uL (4.0-11.0) Red Blood Count 3.72 x10^6/uL (3.50-5.40) Hemoglobin 12.1 g/dL (12.0-15.5) Hematocrit 36.7 % (36.0-47.0) Mean Corpuscular Volume 99 fL (79-100) Mean Corpuscular Hemoglobin 33 pg (25-35) Mean Corpuscular Hemoglobin Concent 33 g/dL (31-37) Red Cell Distribution Width 14.6 % (11.5-14.5) Platelet Count 164 x10^3/uL (140-400) Neutrophils (%) (Auto) 71 % (31-73) Lymphocytes (%) (Auto) 18 % (24-48) Monocytes (%) (Auto) 8 % (0-9) Eosinophils (%) (Auto) 2 % (0-3) Basophils (%) (Auto) 1 % (0-3) Neutrophils # (Auto) 5.6 x10^3uL (1.8-7.7) Lymphocytes # (Auto) 1.4 x10^3/uL (1.0-4.8) Monocytes # (Auto) 0.7 x10^3/uL (0.0-1.1) Eosinophils # (Auto) 0.2 x10^3/uL (0.0-0.7) Basophils # (Auto) 0.1 x10^3/uL (0.0-0.2) Sodium Level 142 mmol/L (136-145) Potassium Level 4.8 mmol/L (3.5-5.1) Chloride Level 100 mmol/L (98-107) Carbon Dioxide Level 32 mmol/L (21-32) Anion Gap 10 (6-14) Blood Urea Nitrogen 58 mg/dL (7-20) Creatinine 8.0 mg/dL (0.6-1.0) Estimated GFR (Cockcroft-Gault) 5.0 BUN/Creatinine Ratio 7 (6-20) Glucose Level 158 mg/dL (70-99) Calcium Level 8.4 mg/dL (8.5-10.1) Magnesium Level 1.9 mg/dL (1.8-2.4) Total Bilirubin 0.7 mg/dL (0.2-1.0) Aspartate Amino Transf (AST/SGOT) 28 U/L (15-37) Alanine Aminotransferase (ALT/SGPT) 24 U/L (14-59) Alkaline Phosphatase 687 U/L (46-116) Creatine Kinase 144 U/L (26-192) Creatine Kinase MB (Mass) 2.6 ng/mL (0.0-3.6) Creatine Kinase MB Relative Index 1.8 % (0-4) Troponin I Quantitative < 0.017 ng/mL (0.000-0.055) MJ-Mzk-Z-Type Natriuretic Peptide 27594 pg/mL (0-124) Total Protein 7.6 g/dL (6.4-8.2) Albumin 3.5 g/dL (3.4-5.0) Albumin/Globulin Ratio 0.9 (1.0-1.7) Triglycerides Level 88 mg/dL (0-150) Cholesterol Level 148 mg/dL (0-200) LDL Cholesterol, Calculated 71 mg/dL (0-100) VLDL Cholesterol, Calculated 18 mg/dL (0-40) Non-HDL Cholesterol Calculated 89 mg/dL (0-129) HDL Cholesterol 59 mg/dL (40-60) Cholesterol/HDL Ratio 2.5 Lipase 95 U/L (73-393) Thyroid Stimulating Hormone (TSH) 1.948 uIU/mL (0.358-3.74) Images Images 1. Mild cardiomegaly. 2. Mildly bilateral perihilar atelectasis/infiltrate superimposed upon scarring. Low-grade congestive heart failure is suspected. GÓMEZ REAVES MD Apr 06, 2017 13:00
[2017-04-06] MEDS ORDERED: LIDOCAINE 2% 20 ML VIAL. ONE (13:25)
[2017-04-06] MEDS ORDERED: IODIXANOL 320 MG/ML 100 ML VIAL. ONE (13:26)
--- NOTE | 2017-04-06 13:27 | PHYS DOC ---
MODERATE SEDATION ASSESSMENT RISKS/ALTERNATIVES Risks/Alternatives Risks and alternatives of this type of sedation and procedure discussed with: RISK/ALTERNATIVES: Patient H & P ON CHART H & P H & P on chart and reviewed for co-morbid conditions and appropriate labs. H&P ON CHART: Yes STATUS PREG STATUS ASSESSED: Yes MEDS/ALLERGIES REVIEWED Meds/Allergies Reviewed Medications and Allergies including time and route of recently administered narcotics and sedatives. MEDS/ALLERGIES REVIEWED: Yes ASA RATING ASA RATING: II AIRWAY ASSESSMENT Airway Assessment Airway patency, oral function limitations, presence of caps, crowns, dentures, partials, and ability to extend neck assessed. AIRWAY ASSESSMENT: Yes MALLAMPATI SCORE MALLAMPATI SCORE: II PRE-SEDATION ASSESSMENT PRE-SEDATION ASSESSMENT: Yes MAIKOL BYNUM MD Apr 06, 2017 13:26
[2017-04-06] MEDS ORDERED: fentaNYL PF VIAL 100 MCG/2 ML VIAL ONE (13:41)
[2017-04-06] MEDS ORDERED: MIDAZOLAM HCL/PF 2 MG/2 ML VIAL. ONE (13:41)
[2017-04-06] MEDS ORDERED: MIDAZOLAM HCL/PF 2 MG/2 ML VIAL. IV ONE (14:00)
[2017-04-06] MEDS ORDERED: IODIXANOL 320 MG/ML 100 ML VIAL. IART ONE (14:00)
[2017-04-06] MEDS ORDERED: fentaNYL PF VIAL 100 MCG/2 ML VIAL IV ONE (14:00)
[2017-04-06] MEDS ORDERED: LIDOCAINE 2% 20 ML VIAL. IJ ONE (14:00)
[2017-04-06 14:16] VITALS: BP 160/75
[2017-04-06] MEDS ORDERED: 0.9 % SODIUM CHLORIDE 10 ML DISP.SYRIN. IV PRN (14:30)
[2017-04-06] MEDS ORDERED: NITROGLYCERIN SUBLINGUAL 0.4 MG BOTTLE OF 25. SL PRN (14:30)
[2017-04-06 15:00] VITALS: BP 149/74
--- NOTE | 2017-04-06 15:01 | CARD ---
APPROVED REPORT EXAM: Two-dimensional and M-mode echocardiogram with Doppler and color Doppler. Other Information Quality : Average Rhythm : NSR INDICATION Chest Pain Congestive Heart Failure 2D DIMENSIONS RVDd2.3 (2.9-3.5cm)Left Atrium(2D)4.2 (1.6-4.0cm) IVSd1.3 (0.7-1.1cm)Aortic Root(2D)2.6 (2.0-3.7cm) LVDd4.5 (3.9-5.9cm)LVOT Diameter2.0 (1.8-2.4cm) PWd1.3 (0.7-1.1cm)LVDs2.9 (2.5-4.0cm) FS (%) 35.1 %SV59.1 ml LVEF(%)64.5 (>50%) Aortic Valve AoV Peak José.143.7cm/sAoV VTI40.6cm AO Peak GR.8.3mmHgLVOT VTI 29.16cm AO Mean GR.5mmHg Mitral Valve MV E Pajmjlpt097.9cm/sMV E Peak Gr.6mmHg MV DECEL [id number] A Ncugtuwm21.5cm/s MV ZOI83kuA/A Ratio1.2 MV A [id number] (PHT)3.14cm2 TDI Lateral E' P. V8.09cm/sMedial E' P. V7.70cm/s E/Lateral E'13.8E/Medial E'14.5 Tricuspid Valve TR P. Brcxxahy223oh/sRAP HCTQCGJH0phHn TR Peak Gr.83lxGlBRZZ75rmFf LEFT VENTRICLE The left ventricle is normal size. There is borderline to mild concentric left ventricular hypertroph y. Left ventricle systolic function is normal. The Ejection Fraction is 60-65%. There is normal LV se gmental wall motion. The left ventricular diastolic function and filling is normal for age. There is no ventricular septal defect visualized. RIGHT VENTRICLE The right ventricle is normal size. The right ventricular systolic function is normal. ATRIA The left atrium is borderline dilated. The right atrium size is normal. The interatrial septum is int act with no evidence for an atrial septal defect or patent foramen ovale as noted on 2-D or Doppler i maging. AORTIC VALVE The aortic valve is mildly calcified. The aortic valve is trileaflet. Doppler and Color Flow revealed no significant aortic regurgitation. There is no significant aortic valvular stenosis. MITRAL VALVE Mitral annular calcification is borderline. There is no mitral valve stenosis. Doppler and Color Flow revealed mild mitral regurgitation. TRICUSPID VALVE The tricuspid valve is normal in structure and function. Doppler and Color Flow revealed mild to mode rate tricuspid regurgitation. The PA pressure was estimated at 50 mmHg. There is no tricuspid valve s tenosis. PULMONIC VALVE The pulmonic valve is not well visualized. Doppler and Color Flow revealed no pulmonic valvular regur gitation. There is no pulmonic valvular stenosis. GREAT VESSELS The aortic root is normal in size. The ascending aorta is normal in size. The IVC is normal in size a nd collapses >50% with inspiration. PERICARDIAL EFFUSION There is no evidence of significant pericardial effusion. Critical Notification Critical Value: No <Conclusion> The left ventricle is normal size. Left ventricle systolic function is normal. The Ejection Fraction is 60-65%. There is borderline to mild concentric left ventricular hypertrophy. There is no significant aortic valvular stenosis. Doppler and Color Flow revealed no significant aortic regurgitation. Doppler and Color Flow revealed mild mitral regurgitation. Doppler and Color Flow revealed mild to moderate tricuspid regurgitation. The PA pressure was estimated at 50 mmHg. There is no evidence of significant pericardial effusion.
--- NOTE | 2017-04-06 15:42 | CARD ---
APPROVED REPORT Procedures Left heart catheterization. Left ventriculogram. Selective coronary angiogram. Abdominal aortic angiogram at the level of the renal arteries. The patient is a 67-year-old female with a history of mild coronary artery disease on a previous gabbie ogram. The patient reports episodes of chest pain which continued for several hours. Initial cardiac enzymes were normal. The patient however has diabetes, severe hypertension and end-stage renal diseas e on hemodialysis. In this setting a cardiac catheterization was recommended. Risks and benefits were discussed. The patient agreed to proceed with catheterization and possible intervention. After informed consent was obtained the patient was brought to the heart catheterization lab. The are a in the right femoral artery was prepared in the usual manner with Betadine, sterile draping and loc al anesthetic. An 18-gauge needle was used to enter the right femoral artery, a wire placed and a 6 F rench sheath placed over the wire. A 6 Korean JL4 diagnostic catheter was used to image the left jeffrey nary system. A 6 Korean Antonino right diagnostic catheter was used to engage and image the right cor onary system. A pigtail catheter was then advanced to the ascending aorta and then the left ventricle . 30 BAZZI left ventriculogram was performed. Pullback pressures were measured. The pigtail was then w ithdrawn to the area of the renal arteries in the abdominal aorta. A single injection was performed. The catheter was removed for the patient. Imaging of this sheath showed normal placement. The sheath was removed and sealed with an Angio-Seal product. The patient was brought to the holding area. Findings. Hemodynamics. Left ventricular pressure 166/18 aortic root pressure 164/50. Coronaries. Left main. The left main was a normal-size vessel with no lesions. Left anterior descending. The LAD had a proximal 25% lesion and a mid 15% lesion. Left circumflex. The left circumflex is a moderate-sized vessel with a proximal 10% lesion. Right coronary artery. The right coronary artery is a moderate size vessel with a mid 10-15% lesion. Left ventriculogram. Left ventricular systolic function was normal with an ejection fraction of greater than 55%. No katlin l regurgitation was identified. Abdominal aortic imaging at the level of the renal arteries. Previously placed bilateral renal stents are occluded. Conclusions. Mild coronary artery disease. Normal left ventricular systolic function with an ejection fraction of greater than 55%. Previously placed renal stents are bilaterally occluded.
--- NOTE | 2017-04-06 15:59 | EKG ---
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
[2017-04-06] MEDS ORDERED: DEXTROSE 50% 25 GM / 50ML DISP.SYRIN. IV PRN (17:45)
[2017-04-06] MEDS ORDERED: guaiFENesin/CODEINE 100mg/10mg 5 ML LIQUID PO PRN (17:45)
[2017-04-06 19:00] VITALS: BP 145/64
[2017-04-06] MEDS ORDERED: IV NORMAL SALINE 1000ML BAG 1,000 ML IV PRN ×2 (20:41)
[2017-04-06] MEDS ORDERED: diphenhydrAMINE 50 MG/ML VIAL IV PRN ×2 (20:45)
[2017-04-06] MEDS ORDERED: DIALYSIS PATIENT. MC PRN (20:45)
[2017-04-06] MEDS ORDERED: ALBUMIN HUMAN 25% 200 ML IV PRN (20:45)
[2017-04-06] MEDS: GABAPENTIN 100 MG CAPSULE. PO SCH (21:38)
[2017-04-06] MEDS: INSULIN DETEMIR 300 UNITS/3 ML INSULN.PEN. SQ SCH (21:40)
--- NOTE | 2017-04-07 00:45 | HP ---
ADMIT DATE: 04/06/2017 ADMISSION DIAGNOSIS: Chest pain. HISTORY OF PRESENT ILLNESS: This is a 67-year-old white female with known vascular disease, who has end-stage renal disease and was to go to dialysis today for routine dialysis, but instead came to the Emergency Room. She had sternal chest pain that she rated 9/10. It worsened with deep breathing and with cough. Her initial enzymes and EKG were unremarkable. Because of her history, she was taken to the aquatic life laborer. Heart catheterization was done, but no significant stenosis was found, her ejection fraction was over 55% on her ventriculogram. She is now waiting dialysis. She continues to have anterior chest pain that hurts with breathing, but she has to lay flat post cath, which is uncomfortable for her. She generally sees Dr. Banuelos treasury management sales consultant for her. She had not any fever, chills or night sweats. No other infectious symptoms. No upper respiratory symptoms. PAST MEDICAL HISTORY: Significant for bronchitis, type 2 diabetes, hypertension, end-stage renal disease, rotator cuff disease. She has had C. diff and she did have 1 loose stool yesterday. PAST SURGICAL HISTORY: Includes , tonsillectomy, tubal ligation, bilateral rotator cuff repair, left forearm dialysis shunt. Closed reduction and external fixator device, left ankle, 10/01; C. diff following the antibiotics with dialysis. Other surgeries as above include cholecystectomy, tubal ligation, hysterectomy and . FAMILY HISTORY: Hypertension, diabetes, heart disease. SOCIAL HISTORY: Denies tobacco or alcohol. Recent travel, she did go to [place] in February. ALLERGIES: She has no known drug allergies. HOME MEDICATIONS: Include Tylenol p.r.n., alendronate 70 mg weekly, amlodipine 10 mg daily, aspirin 81 mg daily, calcium plus D daily, Zyrtec 10 mg daily, clonidine 0.1 mg b.i.d., Colace 100 mg daily, Flonase 2 sprays each nostril daily, gabapentin 100 mg at bedtime, hydrocodone/APAP 7.5/325 one q. 4 hours p.r.n., NovoLog unknown dose to t.i.d. with meals, labetalol 200 mg 2 daily, losartan 100 mg daily, multivitamin daily, omeprazole 20 mg daily, Zofran 4 mg daily, MiraLax 17 g daily, Renvela 2 tabs t.i.d., Windy-Abby daily. REVIEW OF SYSTEMS: CONSTITUTIONAL: No fever or chills. HEENT: No upper respiratory symptoms. PULMONARY: Chronic cough and chronic bronchitis. CARDIAC: As above. GASTROINTESTINAL: No nausea, vomiting. She did have 1 episode of diarrhea, no blood in her stool that she noticed. MUSCULOSKELETAL: Positive for arthritic changes and osteoporosis with fracture of her ankle, status post ORIF about 6 months ago. SKIN: No bleeding or bruising. She has not had any shunt issues. GENITOURINARY: Bladder; occasionally has leakage and wears pull ups. NEUROLOGIC: Positive for mild diabetic neuropathy. No headaches or seizures. PHYSICAL EXAMINATION: VITAL SIGNS: Stable. She is afebrile. Blood pressure was initially quite high in the Emergency Room at 203/84. She received IV dose of hydralazine and has been stable on recent readings. GENERAL: She is lying flat. She is a little bit congested. She did not cough while I am in the room. LUNGS: Sound clear. HEART: Regular rate and rhythm. NECK: Supple. ABDOMEN: Soft, nondistended, nontender. EXTREMITIES: No clubbing, cyanosis or peripheral edema. NEUROLOGIC: Lead Ios Developer strength is symmetrical and normal. No focal weakness. LABORATORY STUDIES: CBC is normal. Chemistries: BUN is 58, creatinine 8, glucose 158. Alkaline phosphatase elevated at 687. BNP elevated at 20,745. TSH is normal at 1.948. Cholesterol is 148, LDL 71, HDL 59. Albumin is 3.5. The rest of her liver enzymes were nonspecific. Calcium is low at 8.4. Chest x-ray showed mild cardiomegaly and mild bilateral perihilar atelectasis/infiltrate, low-grade CHF is suspected. ASSESSMENT: Chest pain in lady with known coronary artery disease, although she has had heart catheterization in the past. She has had bilateral stents in her kidneys. She has end-stage renal disease and is on dialysis. She missed dialysis earlier today. PLAN: She was admitted. Cardiology saw her in consultation and decided to take her to the aquatic life laborer. Left heart catheterization was done showing normal left ventricular systolic function with an EF of 55%, left main was normal, LAD had a 25% proximal and 15% mid lesion, left circumflex had a 10% lesion, RCA had a mid 10-15% lesion, previously placed bilateral renal stents were occluded. She will be monitored. Her chest pain is noncardiac. We will treat other sources such as her bronchitis. She likely has some degree of costochondritis, cannot use NSAIDs due to her end-stage renal disease. With her heart failure issues, she needs to dialyze still this evening and likely again tomorrow and then likely again on Tuesday. W Claudio CONNELL MD DR: SUGEY/ronaldo JOB#: [id number] / [id number]
[2017-04-07] MEDS: HYDROcodone/APAP 7.5/325MG 1 TAB TABLET PO PRN ×3 (02:06→12:23)
[2017-04-07 03:00] VITALS: BP 150/67
[2017-04-07 04:01] LABS: BASO % 1 % (0-3); EOS % 2 % (0-3); HEMATOCRIT 34.9 % (36.0-47.0); HEMOGLOBIN 11.9 g/dL (12.0-15.5); LYMPH # 1.2 x10^3/uL (1.0-4.8); LYMPH % 19 % (24-48); MEAN CORPUSCULAR HEMOGLOBIN 33 pg (25-35); MEAN CORPUSCULAR HGB CONC 34 g/dL (31-37); MEAN CORPUSCULAR VOLUME 97 fL (79-100); MONO % 7 % (0-9); NEUT % 71 % (31-73); PLATELET COUNT 153 x10^3/uL (140-400); RED BLOOD COUNT 3.61 x10^6/uL (3.50-5.40); RED CELL DISTRIBUTION WIDTH 14.6 % (11.5-14.5); WHITE BLOOD COUNT 6.5 x10^3/uL (4.0-11.0)
[2017-04-07 04:11] LABS: CALCIUM 8.2 mg/dL (8.5-10.1); CREATININE 3.9 mg/dL (0.6-1.0); GFR 11.4; POTASSIUM 4.3 mmol/L (3.5-5.1)
--- NOTE | 2017-04-07 05:59 | CONS ---
DATE OF CONSULTATION: 04/06/2017 PRIMARY PHYSICIAN: Nicolasa Banuelos MD. REASON FOR CONSULTATION: ESRD dialysis and possible fluid overload. HISTORY OF PRESENT ILLNESS: The patient is a 67-year-old female who has had dialysis today. She complained of chest pain and was sent to the ER. On presentation here, she has been evaluated by Cardiology. Her NT-proBNP was noted to be 20,745. First set of troponin was negative. She has, however, failed to manage heart cath and we were asked to see her for her dialysis. Potassium is well controlled. Chest x-ray showed mild CHF. I have discussed her care with a cardiology nurse practitioner. At the time of discussion, it was felt that she would be best served with a left heart catheterization and given her active chest pain I have held off on initiation of dialysis. She appears to be on room air despite her abnormal chest x-ray, is in no respiratory distress, is able to lie flat and feels like she can ambulate on my exam. There may be a component of reproducible chest pain also. She does have some nausea and some diarrhea over the last 3 days. Denies any other issues at this time. For rest of the details, see electronic records. GÓMEZ REAVES MD DR: JAVIER/ronaldo JOB#: [id number] / [id number]
[2017-04-07 07:00] VITALS: BP 184/74
[2017-04-07] MEDS: ASPIRIN ENTERIC COATED 81 MG TABLET.DR. PO SCH (07:51)
[2017-04-07] MEDS: LABETALOL HCL 200 MG TABLET PO SCH (07:52)
[2017-04-07] MEDS: amLODIPine BESYLATE 10 MG TABLET PO SCH (07:53)
[2017-04-07] MEDS: GABAPENTIN 100 MG CAPSULE. PO SCH ×2 (07:53→20:47)
[2017-04-07] MEDS: INSULIN ASPART 300 UNITS/3 ML INSULN.PEN SQ SCH ×3 (07:54→17:00)
[2017-04-07] MEDS: SEVELAMER CARBONATE 800 MG TABLET. PO SCH ×3 (08:30→17:44)
--- NOTE | 2017-04-07 08:37 | PDOC ---
PROGRESS NOTES Subjective Subjective Ms. Gold is doing better this morning. She dialyzed last night around 10pm and returned to her room around 0100. She is alert and oriented and in no acute distress. She reports the chest pain continues during inspiration particularly on the left side. Most severe are the left upper sternal border. She does not report any other significant changes. Her blood pressure is elevating this morning at 184/74. Objective Objective Vital Signs Date Time Temp Pulse Resp B/P (MAP) Pulse Ox O2 Delivery O2 Flow Rate FiO2 04/07/17 08:01 Nasal Cannula 2.0 04/07/17 07:54 20 04/07/17 07:53 77 184/74 04/07/17 07:00 98.5 95 98.5 Intake and Output 04/07/17 07:00 Intake Total 200 ml Output Total 200 ml Balance 0 ml Intake Oral 200 ml Output Urine Total 200 ml # Voids 1 Physical Exam Physical Exam There is mild swelling on the left lateral leg. There is tenderness to palpation over the left rib cage at the sternal border and tenderness to palpation over the left costal margin and abdomen at the mid-axillary line. Abdomen: Normal bowel sounds, No masses Heart: Regular rate, Normal S1, Normal S2 Extremities: Other General: Oriented X3, No acute distress Lungs: Normal air movement (anteriorly) MUSCULOSKELETAL: No joint tenderness, No muscular tenderness noted Neuro: Normal speech Psych/Mental Status: Mental status NL Skin: No significant lesion Diagnosis CHEST PAIN: Pleurisy HYPERTENSION: Accelerated hypertension RENAL FAILURE: ESRD Assessment Assessment Problems Medical Problems: (1) Accelerated hypertension Status: Acute, elevating this morning, will resume clonidine and losartan from home med list. (2) Chest pain Status: Acute, continued pain with inspiration and cardiac origin ruled out. Pleuritic origin possible, try NSAIDS. (3) End stage renal disease Status: Acute, dialyzed last night without complications. Continue management, next scheduled dialysis tomorrow, Cr down to 3.9 from 8 so she probably doesn't need an extra dialysis today but will defer to Renal. (4) Fluid overload Status: Acute - seemed resolved with dialysis yesterday (5) Hypoxia - on supplemental O2 Status: Resolved Plan Plan of Care 1) Accelerated hypertension Status: Acute, elevating this morning, will resume home clonidine and losartan and manage pain. (2) Chest pain Status: Acute, continued pain with inspiration and cardiac origin ruled out. Pleuritic origin possible, try NSAIDS (3) End stage renal disease Status: Acute, dialyzed last night without complications. Continue management, next routine dialysis tomorroe, will defer extra to Renal. (4) Fluid overload Status: Acute (5) Hypoxia - off supplemental O2 Status: Resolved Comment Review of Relevant I have reviewed the following items cosmo (where applicable) has been applied. Labs Laboratory Tests Test 04/06/17 07:30 04/06/17 12:30 04/06/17 16:57 04/06/17 18:28 White Blood Count 7.8 x10^3/uL (4.0-11.0) Red Blood Count 3.72 x10^6/uL (3.50-5.40) Hemoglobin 12.1 g/dL (12.0-15.5) Hematocrit 36.7 % (36.0-47.0) Mean Corpuscular Volume 99 fL (79-100) Mean Corpuscular Hemoglobin 33 pg (25-35) Mean Corpuscular Hemoglobin Concent 33 g/dL (31-37) Red Cell Distribution Width 14.6 % (11.5-14.5) Platelet Count 164 x10^3/uL (140-400) Neutrophils (%) (Auto) 71 % (31-73) Lymphocytes (%) (Auto) 18 % (24-48) Monocytes (%) (Auto) 8 % (0-9) Eosinophils (%) (Auto) 2 % (0-3) Basophils (%) (Auto) 1 % (0-3) Neutrophils # (Auto) 5.6 x10^3uL (1.8-7.7) Lymphocytes # (Auto) 1.4 x10^3/uL (1.0-4.8) Monocytes # (Auto) 0.7 x10^3/uL (0.0-1.1) Eosinophils # (Auto) 0.2 x10^3/uL (0.0-0.7) Basophils # (Auto) 0.1 x10^3/uL (0.0-0.2) Sodium Level 142 mmol/L (136-145) Potassium Level 4.8 mmol/L (3.5-5.1) Chloride Level 100 mmol/L (98-107) Carbon Dioxide Level 32 mmol/L (21-32) Anion Gap 10 (6-14) Blood Urea Nitrogen 58 mg/dL (7-20) Creatinine 8.0 mg/dL (0.6-1.0) Estimated GFR (Cockcroft-Gault) 5.0 BUN/Creatinine Ratio 7 (6-20) Glucose Level 158 mg/dL (70-99) Calcium Level 8.4 mg/dL (8.5-10.1) Magnesium Level 1.9 mg/dL (1.8-2.4) Total Bilirubin 0.7 mg/dL (0.2-1.0) Aspartate Amino Transf (AST/SGOT) 28 U/L (15-37) Alanine Aminotransferase (ALT/SGPT) 24 U/L (14-59) Alkaline Phosphatase 687 U/L (46-116) Creatine Kinase 144 U/L (26-192) Creatine Kinase MB (Mass) 2.6 ng/mL (0.0-3.6) Creatine Kinase MB Relative Index 1.8 % (0-4) Troponin I Quantitative < 0.017 ng/mL (0.000-0.055) < 0.017 ng/mL (0.000-0.055) GO-Qlu-W-Type Natriuretic Peptide 24243 pg/mL (0-124) Total Protein 7.6 g/dL (6.4-8.2) Albumin 3.5 g/dL (3.4-5.0) Albumin/Globulin Ratio 0.9 (1.0-1.7) Triglycerides Level 88 mg/dL (0-150) Cholesterol Level 148 mg/dL (0-200) LDL Cholesterol, Calculated 71 mg/dL (0-100) VLDL Cholesterol, Calculated 18 mg/dL (0-40) Non-HDL Cholesterol Calculated 89 mg/dL (0-129) HDL Cholesterol 59 mg/dL (40-60) Cholesterol/HDL Ratio 2.5 Lipase 95 U/L (73-393) Thyroid Stimulating Hormone (TSH) 1.948 uIU/mL (0.358-3.74) Glucose (Fingerstick) 61 mg/dL (70-99) 59 mg/dL (70-99) Test 04/06/17 18:30 04/06/17 21:30 04/07/17 03:30 04/07/17 07:34 Troponin I Quantitative < 0.017 ng/mL (0.000-0.055) Glucose (Fingerstick) 138 mg/dL (70-99) 89 mg/dL (70-99) White Blood Count 6.5 x10^3/uL (4.0-11.0) Red Blood Count 3.61 x10^6/uL (3.50-5.40) Hemoglobin 11.9 g/dL (12.0-15.5) Hematocrit 34.9 % (36.0-47.0) Mean Corpuscular Volume 97 fL (79-100) Mean Corpuscular Hemoglobin 33 pg (25-35) Mean Corpuscular Hemoglobin Concent 34 g/dL (31-37) Red Cell Distribution Width 14.6 % (11.5-14.5) Platelet Count 153 x10^3/uL (140-400) Neutrophils (%) (Auto) 71 % (31-73) Lymphocytes (%) (Auto) 19 % (24-48) Monocytes (%) (Auto) 7 % (0-9) Eosinophils (%) (Auto) 2 % (0-3) Basophils (%) (Auto) 1 % (0-3) Neutrophils # (Auto) 4.6 x10^3uL (1.8-7.7) Lymphocytes # (Auto) 1.2 x10^3/uL (1.0-4.8) Monocytes # (Auto) 0.5 x10^3/uL (0.0-1.1) Eosinophils # (Auto) 0.1 x10^3/uL (0.0-0.7) Basophils # (Auto) 0.0 x10^3/uL (0.0-0.2) Sodium Level 140 mmol/L (136-145) Potassium Level 4.3 mmol/L (3.5-5.1) Chloride Level 100 mmol/L (98-107) Carbon Dioxide Level 32 mmol/L (21-32) Anion Gap 8 (6-14) Blood Urea Nitrogen 19 mg/dL (7-20) Creatinine 3.9 mg/dL (0.6-1.0) Estimated GFR (Cockcroft-Gault) 11.4 Glucose Level 162 mg/dL (70-99) Calcium Level 8.2 mg/dL (8.5-10.1) Laboratory Tests Test 04/06/17 12:30 04/06/17 16:57 04/06/17 18:28 04/06/17 18:30 Troponin I Quantitative < 0.017 ng/mL (0.000-0.055) < 0.017 ng/mL (0.000-0.055) Glucose (Fingerstick) 61 mg/dL (70-99) 59 mg/dL (70-99) Test 04/06/17 21:30 04/07/17 03:30 04/07/17 07:34 Glucose (Fingerstick) 138 mg/dL (70-99) 89 mg/dL (70-99) White Blood Count 6.5 x10^3/uL (4.0-11.0) Red Blood Count 3.61 x10^6/uL (3.50-5.40) Hemoglobin 11.9 g/dL (12.0-15.5) Hematocrit 34.9 % (36.0-47.0) Mean Corpuscular Volume 97 fL (79-100) Mean Corpuscular Hemoglobin 33 pg (25-35) Mean Corpuscular Hemoglobin Concent 34 g/dL (31-37) Red Cell Distribution Width 14.6 % (11.5-14.5) Platelet Count 153 x10^3/uL (140-400) Neutrophils (%) (Auto) 71 % (31-73) Lymphocytes (%) (Auto) 19 % (24-48) Monocytes (%) (Auto) 7 % (0-9) Eosinophils (%) (Auto) 2 % (0-3) Basophils (%) (Auto) 1 % (0-3) Neutrophils # (Auto) 4.6 x10^3uL (1.8-7.7) Lymphocytes # (Auto) 1.2 x10^3/uL (1.0-4.8) Monocytes # (Auto) 0.5 x10^3/uL (0.0-1.1) Eosinophils # (Auto) 0.1 x10^3/uL (0.0-0.7) Basophils # (Auto) 0.0 x10^3/uL (0.0-0.2) Sodium Level 140 mmol/L (136-145) Potassium Level 4.3 mmol/L (3.5-5.1) Chloride Level 100 mmol/L (98-107) Carbon Dioxide Level 32 mmol/L (21-32) Anion Gap 8 (6-14) Blood Urea Nitrogen 19 mg/dL (7-20) Creatinine 3.9 mg/dL (0.6-1.0) Estimated GFR (Cockcroft-Gault) 11.4 Glucose Level 162 mg/dL (70-99) Calcium Level 8.2 mg/dL (8.5-10.1) Medications Current Medications Aspirin (Children'S Aspirin) 324 mg 1X ONCE PO Last administered on 04/06/17 07:39; Start 04/06/17 at 07:30; Stop 04/06/17 at 07:31; Status DC Fentanyl Citrate (Fentanyl 2ml Vial) 50 mcg PRN Q15MIN PRN IV PAIN GREATER THAN 3/10 Last administered on 04/06/17 07:39; Start 04/06/17 at 07:15; Stop at 16:41; Status DC Ondansetron HCl (Zofran) 4 mg 1X ONCE IV Last administered on 04/06/17 07:40 ; Start 04/06/17 at 07:30; Stop 04/06/17 at 07:31; Status DC Hydralazine HCl (Apresoline) 10 mg 1X ONCE IVP Last administered on 04/06/17 07:40; Start 04/06/17 at 07:45; Stop 04/06/17 at 07:46; Status DC Ondansetron HCl (Zofran) 4 mg PRN Q8HRS PRN IV NAUSEA/VOMITING; Start 04/06/17 at 08:15; Stop 04/07/17 at 08:14; Status DC Fentanyl Citrate (Fentanyl 2ml Vial) 50 mcg PRN Q2HR PRN IV PAIN; Start at 08:15; Stop 04/07/17 at 08:14; Status DC Acetaminophen (Tylenol) 650 mg PRN Q4HRS PRN PO FEVER Last administered on 04/06 20:12; Start 04/06/17 at 08:15; Stop 04/07/17 at 08:14; Status DC Hydralazine HCl (Apresoline) 10 mg PRN Q4HRS PRN IVP ELEVATED BP, SEE COMMENTS ; Start 04/06/17 at 11:15 Aspirin (Ecotrin) 81 mg DAILYWBKFT PO Last administered on 04/07/17 07:51; Start 04/07/17 at 08:00 Amlodipine Besylate (Norvasc) 10 mg DAILY PO Last administered on 04/07/17 07: 53; Start 04/06/17 at 11:30 Labetalol HCl (Trandate) 400 mg DAILY PO Last administered on 04/07/17 07:52; Start 04/06/17 at 11:30 Heparin Sodium/ Sodium Chloride 1,000 ml @ As Directed STK-MED ONCE .ROUTE ; Start 04/06/17 at 13:25; Stop 04/06/17 at 13:26; Status DC Lidocaine HCl 20 ml STK-MED ONCE .ROUTE ; Start 04/06/17 at 13:25; Stop at 13:26; Status DC Iodixanol (Visipaque 320) 100 ml STK-MED ONCE .ROUTE ; Start 04/06/17 at 13:26; Stop 04/06/17 at 13:27; Status DC Fentanyl Citrate (Fentanyl 2ml Vial) 100 mcg STK-MED ONCE .ROUTE ; Start at 13:41; Stop 04/06/17 at 13:42; Status DC Midazolam HCl (Versed) 2 mg STK-MED ONCE .ROUTE ; Start 04/06/17 at 13:41; Stop 04/06/17 at 13:42; Status DC Heparin Sodium/ Sodium Chloride 1,000 unit 1X ONCE IART Last administered on 14:00; Start 04/06/17 at 14:00; Stop 04/06/17 at 14:01; Status DC Midazolam HCl (Versed) 2 mg 1X ONCE IV Last administered on 04/06/17 14:00; Start 04/06/17 at 14:00; Stop 04/06/17 at 14:01; Status DC Fentanyl Citrate (Fentanyl 2ml Vial) 100 mcg 1X ONCE IV Last administered on 14:00; Start 04/06/17 at 14:00; Stop 04/06/17 at 14:01; Status DC Iodixanol (Visipaque 320) 100 ml 1X ONCE IART Last administered on 04/06/17 14:00; Start 04/06/17 at 14:00; Stop 04/06/17 at 14:01; Status DC Lidocaine HCl 20 ml 1X ONCE IJ Last administered on 04/06/17 14:00; Start at 14:00; Stop 04/06/17 at 14:01; Status DC Sodium Chloride (Normal Saline Flush) 3 ml QSHIFT PRN IV AFTER MEDS AND BLOOD DRAWS; Start 04/06/17 at 14:30 Nitroglycerin (Nitrostat) 0.4 mg PRN Q5MIN PRN SL CHEST PAIN; Start 04/06/17 at 14:30 Insulin Aspart (NovoLOG) 0-7 UNITS TIDWMEALS SQ ; Start 04/07/17 at 08:00 Dextrose (Dextrose 50%-Water Syringe) 12.5 gm PRN Q15MIN PRN IV SEE COMMENTS; Start 04/06/17 at 17:45 Insulin Detemir (Levemir) 7 units QHS SQ Last administered on 04/06/17 21:40; Start 04/06/17 at 21:00 Gabapentin (Neurontin) 200 mg BID PO Last administered on 04/07/17 07:53; Start 04/06/17 at 21:00 Guaifenesin/ Codeine Phosphate (Robitussin Ac) 5 ml PRN Q6HRS PRN PO COUGH; Start 04/06/17 at 17:45 Sodium Chloride 1,000 ml @ 1,000 mls/hr Q1H PRN IV hypotension; Start 04/06/17 at 20:41; Stop 04/07/17 at 02:40; Status DC Albumin Human 200 ml @ 200 mls/hr 1X PRN PRN IV Hypotension; Start 04/06/17 at 20:45; Stop 04/07/17 at 02:44; Status DC Diphenhydramine HCl (Benadryl) 25 mg 1X PRN PRN IV ITCHING; Start 04/06/17 at 20:45; Stop 04/07/17 at 20:44 Diphenhydramine HCl (Benadryl) 25 mg 1X PRN PRN IV ITCHING; Start 04/06/17 at 20:45; Stop 04/07/17 at 20:44 Sodium Chloride 1,000 ml @ 400 mls/hr Q2H30M PRN IV PATENCY; Start 04/06/17 at 20:41; Stop 04/07/17 at 08:40 Info (PHARMACY MONITORING -- do not chart) 1 each PRN DAILY PRN MC SEE COMMENTS ; Start 04/06/17 at 20:45 Acetaminophen/ Hydrocodone Bitart (Lortab 7.5/325) 1 tab PRN Q4HRS PRN PO PAIN Last administered on 04/07/17t 07:54; Start 04/06/17 at 21:45 Sevelamer Carbonate (Renvela) 1,600 mg [id number] PO ; Start 04/07/17 at 08:30 Active Scripts Active Novolog Flexpen (Insulin Aspart) 100 Unit/1 Ml Insuln.pen 0 Units SQ TIDWMEALS 30 Days Hydrocodone-Apap 7.5-325 (Hydrocodone Bit/Acetaminophen) 1 Each Tablet 1 Tab PO PRN Q4HRS PRN 10 Days Children's Aspirin (Aspirin) 81 Mg Tab.chew 81 Mg PO DAILYWBKFT 30 Days Zofran (Ondansetron Hcl) 4 Mg Tablet 1 Tab PO Q8HRS Cozaar (Losartan Potassium) 50 Mg Tablet 100 Mg PO DAILY Reported Cetirizine Hcl 10 Mg Tablet 1 Tab PO DAILY Thera-M (Multivits,Th W-Fe,Other Min) 1 Each Tablet 1 Each PO DAILY Miralax (Polyethylene Glycol 3350) 17 Gm Powd.pack 1 Packet PO DAILY Gabapentin 100 Mg Capsule 100 Mg PO QHS Colace (Docusate Sodium) 100 Mg Capsule 1 Cap PO DAILY Tylenol (Acetaminophen) 325 Mg Tablet 2 Tab PO PRN Q6HRS PRN Clonidine Hcl 0.1 Mg Tablet 0.1 Mg PO BID Alendronate Sodium 70 Mg Tablet 70 Mg PO WEEKLY Labetalol Hcl 200 Mg Tablet 2 Tab PO DAILY Flonase Allergy Relief (Fluticasone Propionate) 9.9 Ml [place].susp 2 Sprays NS DAILY Calcium 600 + Vit D 400 Caplet (Calcium Carbonate/Vitamin D3) 1 Each Tablet 1 Each PO DAILY Renvela (Sevelamer Carbonate) 800 Mg Tablet 2 Tab PO [id number] Norvasc (Amlodipine Besylate) 10 Mg Tablet 10 Mg PO DAILY Windy-Abby Rx Tablet (Vit B Cmplx 3/Fa/Vit C/Biotin) 1 Each Tablet 1 Each PO DAILY Prilosec (Omeprazole) 20 Mg Capsule.dr 20 Mg PO DAILY Vitals/I & O Vital Sign - Last 24 Hours 04/06/17 04/06/17 04/06/17 04/06/17 08:34 09:35 11:00 14:00 Temp 97.8 97.8 Pulse 74 72 Resp 18 18 16 B/P (MAP) 169/80 (109) 152/75 (100) Pulse Ox 97 94 100 O2 Delivery Nasal Cannula Nasal Cannula Nasal Cannula Nasal Cannula O2 Flow Rate 2.0 2.0 2.0 2.0 04/06/17 04/06/17 04/06/17 04/06/17 14:16 15:00 19:00 20:00 Temp 97.7 98.0 97.7 98.0 Pulse 67 73 75 Resp 16 18 18 B/P (MAP) 149/74 (99) 145/64 (91) Pulse Ox 100 94 92 O2 Delivery Nasal Cannula Nasal Cannula Nasal Cannula Nasal Cannula O2 Flow Rate 3.0 2.0 2.0 2.0 04/07/17 04/07/17 04/07/17 04/07/17 02:06 03:00 07:00 07:52 Temp 98.3 98.5 98.3 98.5 Pulse 82 77 77 Resp 8 16 16 B/P (MAP) 150/67 (94) 184/74 (110) 184/74 Pulse Ox 95 95 O2 Delivery Nasal Cannula Nasal Cannula Nasal Cannula O2 Flow Rate 2.0 2.0 2.0 04/07/17 04/07/17 04/07/17 07:53 07:54 08:01 Pulse 77 Resp 20 B/P (MAP) 184/74 O2 Delivery Nasal Cannula Nasal Cannula O2 Flow Rate 2.0 2.0 Intake and Output 04/06/17 04/06/17 04/07/17 15:00 23:00 07:00 Intake Total 200 ml Output Total 200 ml Balance -200 ml 200 ml LISA CONNELL MD Apr 07, 2017 08:37
[2017-04-07] MEDS ORDERED: IBUPROFEN 600 MG TABLET. PO PRN (09:15)
[2017-04-07] MEDS ORDERED: ACETAMINOPHEN 325 MG TABLET. PO PRN (09:45)
[2017-04-07] MEDS ORDERED: POLYETHYLENE GLYCOL 3350 17 GM PACKET. PO PRN (09:45)
--- NOTE | 2017-04-07 10:26 | PDOC ---
CARDIO Progress Notes Date and Time Date of Service 04/07/2017 Time of Evaluation 1000 Subjective Subjective: No Chest Pain, No shortness of breath, No Palpitations, No Dizziness, Other (feels much better today) Vitals Vitals Vital Signs Date Time Temp Pulse Resp B/P (MAP) Pulse Ox O2 Delivery O2 Flow Rate FiO2 04/07/17 08:01 Nasal Cannula 2.0 04/07/17 07:54 20 04/07/17 07:53 77 184/74 04/07/17 07:00 98.5 95 98.5 Weight Weight [ ] Input and Output Intake and Output Intake and Output 04/07/17 07:00 Intake Total 200 ml Output Total 200 ml Balance 0 ml Intake Oral 200 ml Output Urine Total 200 ml # Voids 1 Laboratory Labs Laboratory Tests Test 04/06/17 12:30 04/06/17 16:57 04/06/17 18:28 04/06/17 18:30 Troponin I Quantitative < 0.017 ng/mL (0.000-0.055) < 0.017 ng/mL (0.000-0.055) Glucose (Fingerstick) 61 mg/dL (70-99) 59 mg/dL (70-99) Test 04/06/17 21:30 04/07/17 03:30 04/07/17 07:34 Glucose (Fingerstick) 138 mg/dL (70-99) 89 mg/dL (70-99) White Blood Count 6.5 x10^3/uL (4.0-11.0) Red Blood Count 3.61 x10^6/uL (3.50-5.40) Hemoglobin 11.9 g/dL (12.0-15.5) Hematocrit 34.9 % (36.0-47.0) Mean Corpuscular Volume 97 fL (79-100) Mean Corpuscular Hemoglobin 33 pg (25-35) Mean Corpuscular Hemoglobin Concent 34 g/dL (31-37) Red Cell Distribution Width 14.6 % (11.5-14.5) Platelet Count 153 x10^3/uL (140-400) Neutrophils (%) (Auto) 71 % (31-73) Lymphocytes (%) (Auto) 19 % (24-48) Monocytes (%) (Auto) 7 % (0-9) Eosinophils (%) (Auto) 2 % (0-3) Basophils (%) (Auto) 1 % (0-3) Neutrophils # (Auto) 4.6 x10^3uL (1.8-7.7) Lymphocytes # (Auto) 1.2 x10^3/uL (1.0-4.8) Monocytes # (Auto) 0.5 x10^3/uL (0.0-1.1) Eosinophils # (Auto) 0.1 x10^3/uL (0.0-0.7) Basophils # (Auto) 0.0 x10^3/uL (0.0-0.2) Sodium Level 140 mmol/L (136-145) Potassium Level 4.3 mmol/L (3.5-5.1) Chloride Level 100 mmol/L (98-107) Carbon Dioxide Level 32 mmol/L (21-32) Anion Gap 8 (6-14) Blood Urea Nitrogen 19 mg/dL (7-20) Creatinine 3.9 mg/dL (0.6-1.0) Estimated GFR (Cockcroft-Gault) 11.4 Glucose Level 162 mg/dL (70-99) Calcium Level 8.2 mg/dL (8.5-10.1) Physical Exam HEENT: Neck Supple W Full Motion Chest: Symmetric LUNGS: Other (basilar crackles) Heart: S1S2, RRR (SR no significant ectopies overnight), murmurs (2/6 systolic murmur to LLS border) Abdomen: Soft N/T Extremities: No Edema, No Calf Tenderness Neurology: oriented, follow commands Other Exams right groin arteriotomy site intact, no swelling, neurovascular status intact to bilateral LE Assessment Assessment 1. Chest pain: typical symptoms for UA with hx of CAD prompting C. CP likely from HTN and bronchospasm 2. Accelerated HTN: labile 3. Acute on chronic diastolic CHF: suspecting uncontrolled HTN induced. compensated. EF 55% 4. CAD: [facility] 2013 with nonobstructive 40% to mid RCA. Noted diffuse mild CAD per [facility] yesterday POD#1 5. Hx of bilateral ARPIT: S/P 2013 [employer], renal angiogram yesterday noted with occluded bilateral renal arteries 6. ESRD 7. DM2/DPN/HLP 8. Hx of TIA Recommendations 1. Continues with secondary prevention including ASA. 2. HDL 59, LDL 71 despite no home statin. Will defer for now, reeval per guidelines 3. Continue Fluid off loading per HD 4. Increase labetolol, continue on norvasc and start on hydralazine. 5. Will defer ARB to nephrology, pt on losartan 100 mg at home? 6. F/U in office in 4 weeks. DEB SALGADO APRN Apr 07, 2017 10:26
--- NOTE | 2017-04-07 10:29 | PDOC ---
SUBJECTIVE ROS ESRD Doign same overall; Pt Tells me that she may have some pericarditis - no PEff was ntoed on ECHO CVS: no Orthopnea, + CP RESP: no SOB, no PARISI GI: no Nausea, no Vomiting : no Dysuria, no Urgency OBJECTIVE Vital Signs Vital Signs Date Time Temp Pulse Resp B/P (MAP) Pulse Ox O2 Delivery O2 Flow Rate FiO2 04/07/17 08:01 Nasal Cannula 2.0 04/07/17 07:54 20 04/07/17 07:53 77 184/74 04/07/17 07:00 98.5 95 98.5 I & 0 Intake and Output 04/07/17 07:00 Intake Total 200 ml Output Total 200 ml Balance 0 ml Intake Oral 200 ml Output Urine Total 200 ml # Voids 1 PHYSICAL EXAM Physical Exam GEN: Awake, Oriented x 3, In no distress EYES: Vision Unchanged, Conjunctiva Normal EN: No EN Drainage, Mucous Membranes moist NECK: no JVD, no JVP, Supple, no Thyromegaly CVS: S1S2, ? Murmur, No Gallop, No Rub,no Edema RESP: no Rales, no Rhonchi,no Acc. Muscle Use GI: BS + ve, NO Bruit, Non Tender, Non Distended : no CVA tenderness, no Suprapubic Tenderness DIAGNOSIS/ASSESSMENT Assessment & Plan ESRD: Dialysis as below F 180 NR 3.0 Hrs 3 K 2.5 Ca 140 Na 35 HC03 Qb 350 + Qd 500+ Heparin 0 Units Uf 1-2 Kgs or to dry weight as tolerated May give 25-50 gms of 25% Albumin if needed to maintain Hemodynamic stability Treatment plan reviewed and discussed with finishing tunnel operator ? CP due to Pericarditis - will do extra HD today and ct MWF schedule ANEMIA; no Aranap ordered for hgb > 10 Transfuse with next HD as needed HTN: Current BP meds as reviewed. See orders for changes. BONE & MINERAL: check phos Discussed Plan of Care with pt at bedside Problems: COMMENT/RELEVANT DATA Meds Current Medications Medications (Trade) Dose Ordered Sig/Bill Start Time Stop Time Status Last Admin Dose Admin Acetaminophen (Tylenol) 650 mg PRN Q4HRS PRN 04/06/17 08:15 04/07/17 08:14 DC 04/06/17 20:12 650 MG Acetaminophen/ Hydrocodone Bitart (Lortab 7.5/325) 1 tab PRN Q4HRS PRN 04/06/17 21:45 04/07/17 07:54 1 TAB Albumin Human 200 ml @ 200 mls/hr 1X PRN PRN 04/06/17 20:45 04/07/17 02:44 DC Amlodipine Besylate (Norvasc) 10 mg DAILY 04/06/17 11:30 04/07/17 07:53 10 MG Aspirin (Children'S Aspirin) 324 mg 1X ONCE 04/06/17 07:30 04/06/17 07:31 DC 04/06/17 07:39 324 MG Aspirin (Ecotrin) 81 mg [id number] 04/07/17 08:00 04/07/17 07:51 81 MG Dextrose (Dextrose 50%-Water Syringe) 12.5 gm PRN Q15MIN PRN 04/06/17 17:45 Diphenhydramine HCl (Benadryl) 25 mg 1X PRN PRN 04/06/17 20:45 04/07/17 20:44 Fentanyl Citrate (Fentanyl 2ml Vial) 100 mcg 1X ONCE 04/06/17 14:00 04/06/17 14:01 DC 04/06/17 14:00 50 MCG Gabapentin (Neurontin) 200 mg BID 04/06/17 21:00 04/07/17 07:53 200 MG Guaifenesin/ Codeine Phosphate (Robitussin Ac) 5 ml PRN Q6HRS PRN 04/06/17 17:45 Heparin Sodium/ Sodium Chloride 1,000 unit 1X ONCE 04/06/17 14:00 04/06/17 14:01 DC 04/06/17 14:00 1,000 UNIT Hydralazine HCl (Apresoline) 10 mg PRN Q4HRS PRN 04/06/17 11:15 Ibuprofen (Motrin) 600 mg PRN Q6HRS PRN 04/07/17 09:15 Info (PHARMACY MONITORING -- do not chart) 1 each PRN DAILY PRN 04/06/17 20:45 Insulin Aspart (NovoLOG) 0-7 UNITS TIDWMEALS 04/07/17 08:00 Insulin Detemir (Levemir) 7 units QHS 04/06/17 21:00 04/06/17 21:40 7 UNITS Iodixanol (Visipaque 320) 100 ml 1X ONCE 04/06/17 14:00 04/06/17 14:01 DC 04/06/17 14:00 100 ML Labetalol HCl (Trandate) 400 mg DAILY 04/06/17 11:30 04/07/17 07:52 400 MG Lidocaine HCl 20 ml 1X ONCE 04/06/17 14:00 04/06/17 14:01 DC 04/06/17 14:00 20 ML Midazolam HCl (Versed) 2 mg 1X ONCE 04/06/17 14:00 04/06/17 14:01 DC 04/06/17 14:00 1 MG Nitroglycerin (Nitrostat) 0.4 mg PRN Q5MIN PRN 04/06/17 14:30 Ondansetron HCl (Zofran) 4 mg PRN Q8HRS PRN 04/06/17 08:15 04/07/17 08:14 DC Sevelamer Carbonate (Renvela) 1,600 mg [id number] 04/07/17 08:30 Sodium Chloride 1,000 ml @ 400 mls/hr Q2H30M PRN 04/06/17 20:41 04/07/17 08:40 DC Sodium Chloride (Normal Saline Flush) 3 ml QSHIFT PRN 04/06/17 14:30 Lab Laboratory Tests Test 04/06/17 12:30 04/06/17 16:57 04/06/17 18:28 04/06/17 18:30 Troponin I Quantitative < 0.017 ng/mL (0.000-0.055) < 0.017 ng/mL (0.000-0.055) Glucose (Fingerstick) 61 mg/dL (70-99) 59 mg/dL (70-99) Test 04/06/17 21:30 04/07/17 03:30 04/07/17 07:34 Glucose (Fingerstick) 138 mg/dL (70-99) 89 mg/dL (70-99) White Blood Count 6.5 x10^3/uL (4.0-11.0) Red Blood Count 3.61 x10^6/uL (3.50-5.40) Hemoglobin 11.9 g/dL (12.0-15.5) Hematocrit 34.9 % (36.0-47.0) Mean Corpuscular Volume 97 fL (79-100) Mean Corpuscular Hemoglobin 33 pg (25-35) Mean Corpuscular Hemoglobin Concent 34 g/dL (31-37) Red Cell Distribution Width 14.6 % (11.5-14.5) Platelet Count 153 x10^3/uL (140-400) Neutrophils (%) (Auto) 71 % (31-73) Lymphocytes (%) (Auto) 19 % (24-48) Monocytes (%) (Auto) 7 % (0-9) Eosinophils (%) (Auto) 2 % (0-3) Basophils (%) (Auto) 1 % (0-3) Neutrophils # (Auto) 4.6 x10^3uL (1.8-7.7) Lymphocytes # (Auto) 1.2 x10^3/uL (1.0-4.8) Monocytes # (Auto) 0.5 x10^3/uL (0.0-1.1) Eosinophils # (Auto) 0.1 x10^3/uL (0.0-0.7) Basophils # (Auto) 0.0 x10^3/uL (0.0-0.2) Sodium Level 140 mmol/L (136-145) Potassium Level 4.3 mmol/L (3.5-5.1) Chloride Level 100 mmol/L (98-107) Carbon Dioxide Level 32 mmol/L (21-32) Anion Gap 8 (6-14) Blood Urea Nitrogen 19 mg/dL (7-20) Creatinine 3.9 mg/dL (0.6-1.0) Estimated GFR (Cockcroft-Gault) 11.4 Glucose Level 162 mg/dL (70-99) Calcium Level 8.2 mg/dL (8.5-10.1) GÓMEZ REAVES MD Apr 07, 2017 10:29
[2017-04-07] MEDS ORDERED: MAGNESIUM SULFATE 2GM 50 ML IV PRN (10:30)
[2017-04-07 10:49] VITALS: BP 121/55
[2017-04-07] MEDS: cloNIDine HCL 0.1 MG TABLET PO SCH ×2 (11:00→20:02)
[2017-04-07] MEDS: DOCUSATE SODIUM 100 MG CAPSULE. PO SCH (11:30)
[2017-04-07] MEDS: FLUTICASONE 50MCG/NASAL SPRAY 16GM BOTTLE. NS SCH (12:00)
[2017-04-07] MEDS ORDERED: INSULIN ASPART 300 UNITS/3 ML INSULN.PEN SQ SCH (12:00)
[2017-04-07] MEDS: LOSARTAN POTASSIUM 50 MG TABLET. PO SCH (12:00)
[2017-04-07] MEDS ORDERED: DEXTROSE 50% 25 GM / 50ML DISP.SYRIN. IV PRN (12:15)
[2017-04-07] MEDS: CALCIUM CARB/VIT D3 500/200 TABLET. PO SCH (12:21)
[2017-04-07] MEDS: FOLIC/VIT B COMP W-C (RENAL) TABLET. PO SCH (12:22)
[2017-04-07] MEDS: MULTIVITAMIN with MINERAL TABLET. PO SCH (12:22)
[2017-04-07] MEDS: PANTOPRAZOLE 40 MG TABLET.DR. PO SCH (12:24)
[2017-04-07] MEDS: CETIRIZINE HCL 10 MG TABLET. PO SCH (12:24)
[2017-04-07] MEDS: ASPIRIN CHEWABLE 81 MG TABLET. PO SCH (12:24)
[2017-04-07] MEDS: ONDANSETRON ODT 4 MG TAB.RAPDIS. PO SCH ×2 (14:00→20:47)
[2017-04-07] MEDS ORDERED: IV NORMAL SALINE 1000ML BAG 1,000 ML IV PRN (16:08)
[2017-04-07] MEDS ORDERED: DIALYSIS PATIENT. MC PRN ×2 (16:15)
[2017-04-07 19:00] VITALS: BP 156/69
[2017-04-07] MEDS: INSULIN DETEMIR 300 UNITS/3 ML INSULN.PEN. SQ SCH (20:52)
[2017-04-07 23:00] VITALS: BP 136/88
[2017-04-08 03:00] VITALS: BP 165/79
[2017-04-08 05:25] LABS: CALCIUM 8.5 mg/dL (8.5-10.1); CREATININE 3.7 mg/dL (0.6-1.0); GFR 12.1; PHOSPHORUS 2.5 mg/dL (2.6-4.7)
[2017-04-08 05:28] LABS: POTASSIUM 5.4 mmol/L (3.5-5.1)
[2017-04-08] MEDS: SEVELAMER CARBONATE 800 MG TABLET. PO SCH ×3 (06:31→16:47)
[2017-04-08] MEDS: ONDANSETRON ODT 4 MG TAB.RAPDIS. PO SCH ×2 (06:31→11:06)
[2017-04-08] MEDS ORDERED: IV NORMAL SALINE 1000ML BAG 1,000 ML IV PRN ×2 (07:00)
[2017-04-08] MEDS ORDERED: DIALYSIS PATIENT. MC PRN (07:45)
[2017-04-08] MEDS: INSULIN ASPART 300 UNITS/3 ML INSULN.PEN SQ SCH ×3 (08:00→17:04)
[2017-04-08] MEDS: ASPIRIN CHEWABLE 81 MG TABLET. PO SCH (08:00)
[2017-04-08] MEDS: DOCUSATE SODIUM 100 MG CAPSULE. PO SCH (09:00)
[2017-04-08] MEDS: FLUTICASONE 50MCG/NASAL SPRAY 16GM BOTTLE. NS SCH (09:00)
--- NOTE | 2017-04-08 09:53 | PDOC ---
Dialysis Progress Note Dialysis Note Dialysis Note Seen on Hemodialysis, tolerating treatment Well Vitals on Hemodialysis: 154/78 83 NSR afeb General Appearance: Awake: Alert Oriented x 3 Neck: No JVD or JVP Chest: CTA [place] Heart: S1 S2 Abdomen - Soft NTND Extremities - No Edema ESRD: Dialysis as below F 180 NR 3.0 Hrs 2 K 2.5 Ca 140 Na 30 HC03 Qb 350 + Qd 500+ Heparin 0 Units Uf 2-3 Kgs or to dry weight as tolerated May give 25-50 gms of 25% Albumin if needed to maintain Hemodynamic stability Treatment plan reviewed and discussed with layboy operator Vitals Vital Signs Vital Signs Date Time Temp Pulse Resp B/P (MAP) Pulse Ox O2 Delivery O2 Flow Rate FiO2 04/08/17 08:00 Nasal Cannula 2.0 04/08/17 03:00 98.1 90 22 165/79 (107) 91 98.1 Labs Last Labs Laboratory Tests Test 04/06/17 12:30 04/06/17 16:57 04/06/17 18:28 04/06/17 18:30 Troponin I Quantitative < 0.017 ng/mL (0.000-0.055) < 0.017 ng/mL (0.000-0.055) Glucose (Fingerstick) 61 mg/dL (70-99) 59 mg/dL (70-99) Test 04/06/17 21:30 04/07/17 03:30 04/07/17 07:34 04/07/17 11:08 Glucose (Fingerstick) 138 mg/dL (70-99) 89 mg/dL (70-99) 152 mg/dL (70-99) White Blood Count 6.5 x10^3/uL (4.0-11.0) Red Blood Count 3.61 x10^6/uL (3.50-5.40) Hemoglobin 11.9 g/dL (12.0-15.5) Hematocrit 34.9 % (36.0-47.0) Mean Corpuscular Volume 97 fL (79-100) Mean Corpuscular Hemoglobin 33 pg (25-35) Mean Corpuscular Hemoglobin Concent 34 g/dL (31-37) Red Cell Distribution Width 14.6 % (11.5-14.5) Platelet Count 153 x10^3/uL (140-400) Neutrophils (%) (Auto) 71 % (31-73) Lymphocytes (%) (Auto) 19 % (24-48) Monocytes (%) (Auto) 7 % (0-9) Eosinophils (%) (Auto) 2 % (0-3) Basophils (%) (Auto) 1 % (0-3) Neutrophils # (Auto) 4.6 x10^3uL (1.8-7.7) Lymphocytes # (Auto) 1.2 x10^3/uL (1.0-4.8) Monocytes # (Auto) 0.5 x10^3/uL (0.0-1.1) Eosinophils # (Auto) 0.1 x10^3/uL (0.0-0.7) Basophils # (Auto) 0.0 x10^3/uL (0.0-0.2) Sodium Level 140 mmol/L (136-145) Potassium Level 4.3 mmol/L (3.5-5.1) Chloride Level 100 mmol/L (98-107) Carbon Dioxide Level 32 mmol/L (21-32) Anion Gap 8 (6-14) Blood Urea Nitrogen 19 mg/dL (7-20) Creatinine 3.9 mg/dL (0.6-1.0) Estimated GFR (Cockcroft-Gault) 11.4 Glucose Level 162 mg/dL (70-99) Calcium Level 8.2 mg/dL (8.5-10.1) Test 04/07/17 16:36 04/07/17 20:46 04/08/17 04:25 Glucose (Fingerstick) 98 mg/dL (70-99) 165 mg/dL (70-99) Hemoglobin 11.3 g/dL (12.0-15.5) Sodium Level 142 mmol/L (136-145) Potassium Level 5.4 mmol/L (3.5-5.1) Chloride Level 104 mmol/L (98-107) Carbon Dioxide Level 34 mmol/L (21-32) Anion Gap 4 (6-14) Blood Urea Nitrogen 28 mg/dL (7-20) Creatinine 3.7 mg/dL (0.6-1.0) Estimated GFR (Cockcroft-Gault) 12.1 Glucose Level 72 mg/dL (70-99) Calcium Level 8.5 mg/dL (8.5-10.1) Phosphorus Level 2.5 mg/dL (2.6-4.7) Magnesium Level 1.6 mg/dL (1.8-2.4) Albumin 3.0 g/dL (3.4-5.0) Laboratory Tests Test 04/07/17 11:08 04/07/17 16:36 04/07/17 20:46 04/08/17 04:25 Glucose (Fingerstick) 152 mg/dL (70-99) 98 mg/dL (70-99) 165 mg/dL (70-99) Hemoglobin 11.3 g/dL (12.0-15.5) Sodium Level 142 mmol/L (136-145) Potassium Level 5.4 mmol/L (3.5-5.1) Chloride Level 104 mmol/L (98-107) Carbon Dioxide Level 34 mmol/L (21-32) Anion Gap 4 (6-14) Blood Urea Nitrogen 28 mg/dL (7-20) Creatinine 3.7 mg/dL (0.6-1.0) Estimated GFR (Cockcroft-Gault) 12.1 Glucose Level 72 mg/dL (70-99) Calcium Level 8.5 mg/dL (8.5-10.1) Phosphorus Level 2.5 mg/dL (2.6-4.7) Magnesium Level 1.6 mg/dL (1.8-2.4) Albumin 3.0 g/dL (3.4-5.0) Assessment Assessment Problems Medical Problems: (1) Accelerated hypertension Status: Acute (2) Chest pain Status: Acute (3) End stage renal disease Status: Acute (4) Fluid overload Status: Acute (5) Hypoxia Status: Acute Problems: Plan Plan of Care Problems Medical Problems: (1) Accelerated hypertension Status: Acute (2) Chest pain Status: Acute (3) End stage renal disease Status: Acute (4) Fluid overload Status: Acute (5) Hypoxia Status: Acute GÓMEZ REAVES MD Apr 08, 2017 09:53
[2017-04-08 11:00] VITALS: BP 148/67
[2017-04-08] MEDS: CETIRIZINE HCL 10 MG TABLET. PO SCH (11:04)
[2017-04-08] MEDS: HYDROcodone/APAP 7.5/325MG 1 TAB TABLET PO PRN (11:04)
[2017-04-08] MEDS: GABAPENTIN 100 MG CAPSULE. PO SCH (11:04)
[2017-04-08] MEDS: FOLIC/VIT B COMP W-C (RENAL) TABLET. PO SCH (11:05)
[2017-04-08] MEDS: LOSARTAN POTASSIUM 50 MG TABLET. PO SCH (11:05)
[2017-04-08] MEDS: PANTOPRAZOLE 40 MG TABLET.DR. PO SCH (11:05)
[2017-04-08] MEDS: cloNIDine HCL 0.1 MG TABLET PO SCH (11:05)
[2017-04-08] MEDS: CALCIUM CARB/VIT D3 500/200 TABLET. PO SCH (11:05)
[2017-04-08] MEDS: MULTIVITAMIN with MINERAL TABLET. PO SCH (11:06)
[2017-04-08] MEDS: ASPIRIN ENTERIC COATED 81 MG TABLET.DR. PO SCH (11:06)
[2017-04-08] MEDS: LABETALOL HCL 200 MG TABLET PO SCH (11:06)
[2017-04-08] MEDS: amLODIPine BESYLATE 10 MG TABLET PO SCH (11:06)
[2017-04-08] MEDS ORDERED: GABA-585 PO (13:22)
[2017-04-08] MEDS ORDERED: INSU100V13 SQ (13:23)
[2017-04-08] MEDS ORDERED: GUAI-56 PO (13:26)
[2017-04-08] MEDS ORDERED: HYDR-2869 PO (13:27)
[2017-04-08 15:00] VITALS: BP 128/57
[2017-04-08] MEDS ORDERED: FLUTICASONE 50MCG/NASAL SPRAY 16GM BOTTLE. NS SCH (17:18)
--- NOTE | 2017-04-08 23:14 | DS ---
DATE OF DISCHARGE: 04/08/2017 ADMISSION DIAGNOSES: Chest pain suggestive of unstable angina with accelerated hypertension and fluid overload. DISCHARGE DIAGNOSES: Chest pain suggestive of unstable angina with accelerated hypertension and fluid overload. ASSOCIATED DIAGNOSES: End-stage renal disease, hypertension accelerated, type 2 diabetes with neuropathy, chest wall pain and gastroesophageal reflux disease. CONSULTS: Dr. Winston Barnes, Renal, Dr. Donohue, Cardiology. PRINCIPAL PROCEDURE: Left heart catheterization and hemodialysis. HISTORY/HOSPITAL COURSE: This is a 67-year-old female who was on the way to routine dialysis, but was having a severe substernal chest pain and diverted to the Emergency Room where she was seen and evaluated. Her initial enzymes and EKG were nonspecific, but her symptoms were suggestive of unstable angina and she was taken to the custodial laborer by Dr. Donohue and was found to have mild atherosclerotic changes, none of which required intervention. After heart catheterization, she was dialyzed. She continued to have chest pain after the heart catheterization and with dialysis. Pain meds were continued. Her blood pressure was addressed, initially given IV hydralazine and oral was added. Her dialysis took off about 3-1/2 liters of fluid today, which has left her feeling rather weak. Her magnesium is low and it is being replaced by IV, which should certainly help her weakness symptoms. Her potassium was elevated this morning. Her initial creatinine was 8. It has come down to 3.7 this morning after dialysis Tuesday evening and again this morning. She is not short of breath and her pain seems to be in her anterior chest wall, she has been started on NSAIDs, which have helped. She has a little bit of nausea, but ate lunch well, it started after lunch. She has not had any diarrhea since one episode soon after admission. C. diff was ordered, but never collected as she did not have anymore loose stools. She will be discharged home to continue Tuesday, Tuesday, Tuesday dialysis. DISCHARGE MEDICATIONS: Tylenol 650 q. 6 hours p.r.n., aspirin 81 daily, calcium carbonate 500, 200 with D3 one daily, cetirizine 10 mg daily, docusate 100 mg daily, fluticasone nasal spray 2 sprays daily, Windy-Abby 1 daily, gabapentin 200 b.i.d., hydrocodone APAP 7.5/325 one q. 4 hours p.r.n. #100, ibuprofen 600 mg q. 6 hours p.r.n., NovoLog she has a sliding scale at home 0-7 units, she will continue it, Levemir 7 units subQ at bedtime, labetalol 400 mg daily, I believe she has 200 mg ____ tabs at home and takes two daily, losartan 100 mg daily, ____ plus vitamin daily, Zofran 4 mg q. 8 hours p.r.n. nausea, vomiting, omeprazole 20 mg daily, MiraLax pack daily, sevelamer carbonate, Renvela 1600 mg t.i.d. with food, amlodipine 10 mg daily, clonidine 0.1 b.i.d., guaifenesin 100/10 5 mL q. 6 hours p.r.n. cough, hydralazine 50 mg 1 p.o. t.i.d. She will also continue her weekly alendronate 70 mg once discharged. She will follow up with Dr. Donohue in the office in a month and Dr. Banuelos in the office within 2 weeks. DIET: Will be renal. ACTIVITY: As tolerated. She will continue on Tuesday, Tuesday, Tuesday dialysis. W Claudio CONNELL MD DR: SUGEY/ronaldo JOB#: [id number] / [id number]
[2017-04-14] MEDS ORDERED: NON FORMULARY ITEM (Alendronate Sodium 70 MG) PO SCH (09:00)
== END 2017-04-08 19:05 | disposition home or self-care (01) | DRG 286 ==
LOC: ER 06:56 → 5 SOUTH 07:48
PROVIDERS: ADMIT Family Medicine; ATTEND Family Medicine
PROC: 4A023N7 Measurement of Cardiac Sampling and Pressure, Left Heart, Percutaneous Approach (ICD-10-PCS; principal; 2017-04-06)
PROC: B2111ZZ Fluoroscopy of Multiple Coronary Arteries using Low Osmolar Contrast (ICD-10-PCS; 2017-04-06)
PROC: B2151ZZ Fluoroscopy of Left Heart using Low Osmolar Contrast (ICD-10-PCS; 2017-04-06)
DX: I25.110 Atherosclerotic heart disease of native coronary artery with unstable angina pectoris (principal); I50.33 Acute on chronic diastolic (congestive) heart failure; N18.6 End stage renal disease; I13.2 Hypertensive heart and chronic kidney disease with heart failure and with stage 5 chronic kidney disease, or end stage renal disease; J98.11 Atelectasis; M94.0 Chondrocostal junction syndrome [Tietze]; D64.9 Anemia, unspecified; F32.9 Major depressive disorder, single episode, unspecified; M19.90 Unspecified osteoarthritis, unspecified site; M21.372 Foot drop, left foot; M21.371 Foot drop, right foot; Z87.440 Personal history of urinary (tract) infections; Z87.01 Personal history of pneumonia (recurrent); E11.22 Type 2 diabetes mellitus with diabetic chronic kidney disease; E11.42 Type 2 diabetes mellitus with diabetic polyneuropathy; E78.5 Hyperlipidemia, unspecified; G47.00 Insomnia, unspecified; K21.9 Gastro-esophageal reflux disease without esophagitis; R09.02 Hypoxemia; Z79.4 Long term (current) use of insulin; Z82.3 Family history of stroke; Z82.49 Family history of ischemic heart disease and other diseases of the circulatory system; Z83.3 Family history of diabetes mellitus; Z86.73 Personal history of transient ischemic attack (TIA), and cerebral infarction without residual deficits; Z99.2 Dependence on renal dialysis; Z90.49 Acquired absence of other specified parts of digestive tract; Z90.89 Acquired absence of other organs; Z90.710 Acquired absence of both cervix and uterus; Z98.51 Tubal ligation status
CPT/HCPCS: 36415; 71010; 80048; 80053; 80061; 80069; 82553; 82962; 83690; 83735; 83880; 84443; 84484; 85018; 85027; 93005; 93306; 93458; 96374; 96375; C1769; C1771; C1892; G0269; J0360; J1815; J2250; J2405; J3010; J7060; Q0162; 99285-25

== ENCOUNTER 2017-05-18 10:58 | Emergency (ER) | payer OTHER ==
[~2017-05-18] VITALS: Ht 157.5 cm; Wt 66.2 kg
[~2017-05-18 10:58] MED LIST changes: +GUAI-56 PO; +HYDR-2869 PO; +INSU100V13 SQ
[2017-05-18] MEDS ORDERED: cloNIDine HCL 0.1 MG TABLET PO ONE (11:30)
[2017-05-18 11:50] LABS: BASO % 1 % (0-3); EOS % 2 % (0-3); HEMATOCRIT 35.6 % (36.0-47.0); LYMPH # 1.2 x10^3/uL (1.0-4.8); LYMPH % 17 % (24-48); MEAN CORPUSCULAR HEMOGLOBIN 32 pg (25-35); MEAN CORPUSCULAR HGB CONC 34 g/dL (31-37); MEAN CORPUSCULAR VOLUME 96 fL (79-100); MONO % 10 % (0-9); NEUT % 70 % (31-73); PLATELET COUNT 154 x10^3/uL (140-400); RED BLOOD COUNT 3.72 x10^6/uL (3.50-5.40); RED CELL DISTRIBUTION WIDTH 14.5 % (11.5-14.5); WHITE BLOOD COUNT 6.8 x10^3/uL (4.0-11.0)
[2017-05-18 12:03] LABS: PROTHROMBIN TIME PATIENT 12.6 SEC (11.7-14.0)
[2017-05-18 12:14] LABS: CALCIUM 8.3 mg/dL (8.5-10.1); GFR 15.5
[2017-05-18] MEDS ORDERED: GELATIN SPONGE SIZE 12-7MM SPONGE. TP ONE (14:15)
[2017-05-18 15:27] VITALS: BP 156/70
[2017-05-18] MEDS ORDERED: THROMBIN TOPICAL 20,000 UNIT SPRAY.SYRN KIT TP ONE (15:30)
--- NOTE | 2017-05-18 16:03 | ED.ADGEN ---
Past Medical History Past Medical History: Bronchitis, Diabetes-Type II, Hypertension, Renal Failure , Other Additional Past Medical Histor: c diff , drop foot syndrome LEFT, DIALYSIS Past Surgical History: , Tonsillectomy, Tubal ligation, Other Additional Past Surgical Histo: bilateral rotator cuff; dialysis shunt left forearm Alcohol Use: None Drug Use: None Adult General Chief Complaint Chief Complaint: DIALYSIS PROBLEM HPI HPI Patient is a 67 year old female with history of end-stage renal failure who presents with oozing from left AV dialysis fistula. Patient completed dialysis this morning, and has had persistent bleeding greater than one from insertion site of dialysis catheter. Patient had a clamp placed on R was referred to the ED for further evaluation. Patient denies dizziness lightheadedness, chest pain or shortness of breath. Patient noted be hypertensive, which is in the normal range for the patient. Patient takes daily aspirin but is not any other anticoagulation therapy. No other acute symptoms or complaints. Review of Systems Review of Systems Review symptoms as per history of present illness. All other review symptoms are negative. Current Medications Current Medications Current Medications Medications (Trade) Dose Ordered Sig/Bill Start Time Stop Time Status Last Admin Dose Admin Clonidine HCl (Catapres) 0.2 mg 1X ONCE 05/18/17 11:30 05/18/17 11:31 DC 05/18/17 11:37 0.2 MG Gelatin (Gelfoam Size 12-7mm) 1 each 1X ONCE 05/18/17 14:15 05/18/17 14:16 DC 05/18/17 14:03 1 EACH Thrombin 20,000 unit 1X ONCE 05/18/17 15:30 05/18/17 15:31 DC 05/18/17 15:24 20,000 UNIT Allergies Allergies Allergies Coded Allergies Type Severity Reaction Last Updated Verified No Known Drug Allergies 11/01/16 No Physical Exam Physical Exam Constitutional: Well developed, well nourished, no acute distress, non-toxic appearance. [] HENT: Normocephalic, atraumatic, bilateral external ears normal, oropharynx moist, no oral exudates, nose normal. [] Eyes: PERRLA, EOMI, conjunctiva normal, no discharge. [] Neck: Normal range of motion, no tenderness, supple, no stridor. [] Cardiovascular:Heart rate regular rhythm, no murmur [] Lungs & Thorax: Bilateral breath sounds clear to auscultation [] Abdomen: Bowel sounds normal, soft, no tenderness, no masses, no pulsatile masses. [] Skin: Warm, dry, no erythema, no rash. [] Back: No tenderness, no CVA tenderness. [] Extremities: Left upper extremity, AV dialysis fistula dialysis with persistent oozing from dialysis catheter insertion site. Neurologic: Alert and oriented X 3, normal motor function, normal sensory function, no focal deficits noted. [] Psychologic: Affect normal, judgement normal, mood normal. [] Current Patient Data Vital Signs Vital Signs Date Time Temp Pulse Resp B/P (MAP) Pulse Ox O2 Delivery O2 Flow Rate FiO2 05/18/17 14:57 67 16 158/71 (100) 92 Room Air 05/18/17 10:58 98.3 98.3 Lab Values Laboratory Tests Test 05/18/17 11:40 05/18/17 13:34 White Blood Count 6.8 x10^3/uL (4.0-11.0) Red Blood Count 3.72 x10^6/uL (3.50-5.40) Hemoglobin 12.0 g/dL (12.0-15.5) Hematocrit 35.6 % (36.0-47.0) L Mean Corpuscular Volume 96 fL (79-100) Mean Corpuscular Hemoglobin 32 pg (25-35) Mean Corpuscular Hemoglobin Concent 34 g/dL (31-37) Red Cell Distribution Width 14.5 % (11.5-14.5) Platelet Count 154 x10^3/uL (140-400) Neutrophils (%) (Auto) 70 % (31-73) Lymphocytes (%) (Auto) 17 % (24-48) L Monocytes (%) (Auto) 10 % (0-9) H Eosinophils (%) (Auto) 2 % (0-3) Basophils (%) (Auto) 1 % (0-3) Neutrophils # (Auto) 4.7 x10^3uL (1.8-7.7) Lymphocytes # (Auto) 1.2 x10^3/uL (1.0-4.8) Monocytes # (Auto) 0.7 x10^3/uL (0.0-1.1) Eosinophils # (Auto) 0.1 x10^3/uL (0.0-0.7) Basophils # (Auto) 0.0 x10^3/uL (0.0-0.2) Prothrombin Time 12.6 SEC (11.7-14.0) Prothrombin Time INR 1.0 (0.8-1.1) Sodium Level 138 mmol/L (136-145) Potassium Level 4.0 mmol/L (3.5-5.1) Chloride Level 99 mmol/L (98-107) Carbon Dioxide Level 31 mmol/L (21-32) Anion Gap 8 (6-14) Blood Urea Nitrogen 15 mg/dL (7-20) Creatinine 3.0 mg/dL (0.6-1.0) H Estimated GFR (Cockcroft-Gault) 15.5 Glucose Level 71 mg/dL (70-99) Calcium Level 8.3 mg/dL (8.5-10.1) L Glucose (Fingerstick) 85 mg/dL (70-99) Laboratory Tests 05/18/17 11:40 Laboratory Tests 05/18/17 11:40 EKG EKG [] Radiology/Procedures Radiology/Procedures [] Course & Med Decision Making Course & Med Decision Making Pertinent Labs and Imaging studies reviewed. (See chart for details) [Pressure with compression dressing to left AV Fistula with persistent bleeding. Thrombipad applied and bleeding controlled. Patient instructed to remove bandage tomorrow morning and follow up with PCP. ] Dragon Disclaimer Dragon Disclaimer This electronic medical record was generated, in whole or in part, using a voice recognition dictation system. JOHN DUNLAP DO May 18, 2017 16:03
== END 2017-05-18 16:25 | disposition home or self-care (01) ==
LOC: ER 10:58
DX: T82.838A Hemorrhage due to vascular prosthetic devices, implants and grafts, initial encounter (principal); E11.22 Type 2 diabetes mellitus with diabetic chronic kidney disease; I12.0 Hypertensive chronic kidney disease with stage 5 chronic kidney disease or end stage renal disease; N18.6 End stage renal disease; M21.379 Foot drop, unspecified foot; Z79.82 Long term (current) use of aspirin; Z99.2 Dependence on renal dialysis; Y84.6 Urinary catheterization as the cause of abnormal reaction of the patient, or of later complication, without mention of misadventure at the time of the procedure; Y92.89 Other specified places as the place of occurrence of the external cause
CPT/HCPCS: 36415; 80048; 82962; 85027; 85610; 99284

== ENCOUNTER 2017-05-25 10:17 | Inpatient (IN) | payer OTHER ==
[~2017-05-25] VITALS: Ht 157.5 cm; Wt 65.8 kg
--- NOTE | 2017-05-25 10:58 | PHYS DOC ---
Past Medical History Past Medical History: Bronchitis, Diabetes-Type II, Hypertension, Renal Failure , Other Additional Past Medical Histor: c diff , drop foot syndrome LEFT, DIALYSIS Past Surgical History: , Tonsillectomy, Tubal ligation, Other Additional Past Surgical Histo: bilateral rotator cuff; dialysis shunt left forearm Alcohol Use: None Drug Use: None Adult General Chief Complaint Chief Complaint: DIARRHEA HPI HPI Patient is a 67 year old female presents to the emergency department stating that she's had diarrhea for the last 3 days. She does state she has a history of C. difficile in the past. She denies any recent use of antibiotics. She states that she's had diarrhea stools which she states she's had blood on her tissue although she denies any blood in the toilet. Patient also states that she has been a little lightheaded. She is a dialysis patient and had dialysis this morning. She denies going for the full length of time. Patient's Accu-Chek here in the emergency department was 30. Patient was provided with D50 and a glass of orange juice. She also states that she does not make urine. States she has had chills, denies fever. Review of Systems Review of Systems Constitutional: Denies fever or chills [] Eyes: Denies change in visual acuity, redness, or eye pain [] HENT: Denies nasal congestion or sore throat [] Respiratory: Denies cough or shortness of breath [] Cardiovascular: No additional information not addressed in HPI [] GI: Denies abdominal pain, nausea, vomiting, c/o diarrhea : Denies dysuria or hematuria [] Musculoskeletal: Denies back pain or joint pain [] Integument: Denies rash or skin lesions [] Neurologic: Denies headache, focal weakness or sensory changes [] Endocrine: Denies polyuria or polydipsia [] Current Medications Current Medications Current Medications Medications (Trade) Dose Ordered Sig/Bill Start Time Stop Time Status Last Admin Dose Admin Dextrose (Dextrose 50%-Water Syringe) 25 gm 1X ONCE 05/25/17 11:30 05/25/17 11:31 DC 05/25/17 10:58 25 GM Allergies Allergies Allergies Coded Allergies Type Severity Reaction Last Updated Verified No Known Drug Allergies 11/01/16 No Physical Exam Physical Exam Constitutional: Well developed, well nourished, no acute distress, non-toxic appearance. [] HENT: Normocephalic, atraumatic, bilateral external ears normal, oropharynx moist, no oral exudates, nose normal. [] Eyes: PERRLA, EOMI, conjunctiva normal, no discharge. [] Neck: Normal range of motion, no tenderness, supple, no stridor. [] Cardiovascular:Heart rate regular rhythm, no murmur [] Lungs & Thorax: Bilateral breath sounds clear to auscultation [] Abdomen: Bowel sounds hypoactive, soft, no tenderness, no masses, no pulsatile masses. [] Skin: Warm, dry, no erythema, no rash. [] Back: No tenderness Extremities: No tenderness, no cyanosis, no clubbing, ROM intact, no edema. [] Neurologic: Alert and oriented X 3, normal motor function, normal sensory function, no focal deficits noted. [] Psychologic: Affect normal, judgement normal, mood normal. [] Current Patient Data Vital Signs Vital Signs Date Time Temp Pulse Resp B/P (MAP) Pulse Ox O2 Delivery O2 Flow Rate FiO2 05/25/17 10:27 97.8 78 20 159/70 (99) 97 Room Air 97.8 Lab Values Laboratory Tests Test 05/25/17 10:45 05/25/17 10:50 05/25/17 10:52 05/25/17 11:32 White Blood Count 5.8 x10^3/uL (4.0-11.0) Red Blood Count 3.68 x10^6/uL (3.50-5.40) Hemoglobin 12.1 g/dL (12.0-15.5) Hematocrit 34.6 % (36.0-47.0) L Mean Corpuscular Volume 94 fL (79-100) Mean Corpuscular Hemoglobin 33 pg (25-35) Mean Corpuscular Hemoglobin Concent 35 g/dL (31-37) Red Cell Distribution Width 14.6 % (11.5-14.5) H Platelet Count 150 x10^3/uL (140-400) Neutrophils (%) (Auto) 70 % (31-73) Lymphocytes (%) (Auto) 20 % (24-48) L Monocytes (%) (Auto) 8 % (0-9) Eosinophils (%) (Auto) 2 % (0-3) Basophils (%) (Auto) 1 % (0-3) Neutrophils # (Auto) 4.0 x10^3uL (1.8-7.7) Lymphocytes # (Auto) 1.1 x10^3/uL (1.0-4.8) Monocytes # (Auto) 0.5 x10^3/uL (0.0-1.1) Eosinophils # (Auto) 0.1 x10^3/uL (0.0-0.7) Basophils # (Auto) 0.0 x10^3/uL (0.0-0.2) Sodium Level 141 mmol/L (136-145) Potassium Level 3.8 mmol/L (3.5-5.1) Chloride Level 103 mmol/L (98-107) Carbon Dioxide Level 32 mmol/L (21-32) Anion Gap 6 (6-14) Blood Urea Nitrogen 22 mg/dL (7-20) H Creatinine 3.7 mg/dL (0.6-1.0) H Estimated GFR (Cockcroft-Gault) 12.1 BUN/Creatinine Ratio 6 (6-20) Glucose Level 40 mg/dL (70-99) *L Calcium Level 8.2 mg/dL (8.5-10.1) L Total Bilirubin 0.7 mg/dL (0.2-1.0) Aspartate Amino Transferase (AST) 36 U/L (15-37) Alanine Aminotransferase (ALT) 30 U/L (14-59) Alkaline Phosphatase 808 U/L (46-116) H Troponin I Quantitative < 0.017 ng/mL (0.000-0.055) Total Protein 7.6 g/dL (6.4-8.2) Albumin 3.4 g/dL (3.4-5.0) Albumin/Globulin Ratio 0.8 (1.0-1.7) L Glucose (Fingerstick) 27 mg/dL (70-99) *L 30 mg/dL (70-99) *L 165 mg/dL (70-99) H Laboratory Tests 05/25/17 10:45 Laboratory Tests 05/25/17 10:45 EKG EKG [] Radiology/Procedures Radiology/Procedures [] Course & Med Decision Making Course & Med Decision Making Pertinent Labs and Imaging studies reviewed. (See chart for details) Spoke with Dr. Killam in regards to patient's diarrhea for the last 3 days, history of C. difficile, and her being weak. She did present with hyperglycemia with glucose of 40. She is in agreement's the patient may be placed into the hospital for observation. She did request a consult with Dr. Velasquez nephrology. Patient will be admitted into the hospital as an observation status. Patient is aware of the admission. Orders provided to the computer. [] Dragon Disclaimer Dragon Disclaimer This electronic medical record was generated, in whole or in part, using a voice recognition dictation system. Departure Departure Impression: Primary Impression: Diarrhea Additional Impression: Hypoglycemia Disposition: ADMITTED INPATIENT Admitting Physician: Nicolasa Matias Condition: LEFT WITHOUT BEING SEEN Referrals: NICOLASA MATIAS MD (PCP) Problem Qualifiers RAMONA DE JESUS [employer] May 25, 2017 10:58
[2017-05-25 10:59] LABS: BASO % 1 % (0-3); EOS % 2 % (0-3); HEMATOCRIT 34.6 % (36.0-47.0); HEMOGLOBIN 12.1 g/dL (12.0-15.5); LYMPH # 1.1 x10^3/uL (1.0-4.8); LYMPH % 20 % (24-48); MEAN CORPUSCULAR HEMOGLOBIN 33 pg (25-35); MEAN CORPUSCULAR HGB CONC 35 g/dL (31-37); MEAN CORPUSCULAR VOLUME 94 fL (79-100); MONO % 8 % (0-9); NEUT % 70 % (31-73); PLATELET COUNT 150 x10^3/uL (140-400); RED BLOOD COUNT 3.68 x10^6/uL (3.50-5.40); RED CELL DISTRIBUTION WIDTH 14.6 % (11.5-14.5); WHITE BLOOD COUNT 5.8 x10^3/uL (4.0-11.0)
[2017-05-25 11:21] LABS: ALBUMIN 3.4 g/dL (3.4-5.0); ALBUMIN/GLOBULIN RATIO 0.8 (1.0-1.7); CALCIUM 8.2 mg/dL (8.5-10.1); CREATININE 3.7 mg/dL (0.6-1.0); GFR 12.1; POTASSIUM 3.8 mmol/L (3.5-5.1); TOTAL BILIRUBIN 0.7 mg/dL (0.2-1.0); TOTAL PROTEIN 7.6 g/dL (6.4-8.2)
[2017-05-25] MEDS ORDERED: DEXTROSE 50% 25 GM / 50ML DISP.SYRIN. IV ONE (11:30)
[2017-05-25] MEDS ORDERED: ACETAMINOPHEN 325 MG TABLET. PO PRN (12:15)
[2017-05-25 13:23] VITALS: BP 154/68
[2017-05-25 14:50] VITALS: BP 154/73
[2017-05-25 16:39] VITALS: BP 154/68
[2017-05-25] MEDS: INSULIN ASPART 300 UNITS/3 ML INSULN.PEN SQ SCH (17:00)
[2017-05-25] MEDS ORDERED: DEXTROSE 50% 25 GM / 50ML DISP.SYRIN. IV PRN (17:00)
[2017-05-25] MEDS: PANTOPRAZOLE 40 MG TABLET.DR. PO SCH (17:40)
[2017-05-25] MEDS: ONDANSETRON ODT 4 MG TAB.RAPDIS. PO SCH ×2 (17:40→21:12)
[2017-05-25] MEDS: HYDROcodone/APAP 7.5/325MG 1 TAB TABLET PO PRN (17:40)
[2017-05-25] MEDS: amLODIPine BESYLATE 10 MG TABLET PO SCH (17:41)
[2017-05-25] MEDS: ASPIRIN CHEWABLE 81 MG TABLET. PO SCH (17:41)
[2017-05-25] MEDS: CETIRIZINE HCL 10 MG TABLET. PO SCH (17:42)
[2017-05-25] MEDS: LOSARTAN POTASSIUM 50 MG TABLET. PO SCH (17:51)
[2017-05-25] MEDS: SEVELAMER CARBONATE 800 MG TABLET. PO SCH (17:52)
[2017-05-25 19:00] VITALS: BP 164/76
[2017-05-25] MEDS: cloNIDine HCL 0.1 MG TABLET PO SCH (21:12)
[2017-05-25] MEDS: GABAPENTIN 100 MG CAPSULE. PO SCH (21:12)
[2017-05-25 23:00] VITALS: BP 142/68
[2017-05-26 03:00] VITALS: BP 134/61
[2017-05-26 04:33] LABS: BASO % 1 % (0-3); EOS % 3 % (0-3); HEMOGLOBIN 10.9 g/dL (12.0-15.5); LYMPH # 2.3 x10^3/uL (1.0-4.8); LYMPH % 42 % (24-48); MEAN CORPUSCULAR HEMOGLOBIN 33 pg (25-35); MEAN CORPUSCULAR HGB CONC 33 g/dL (31-37); MEAN CORPUSCULAR VOLUME 98 fL (79-100); MONO % 11 % (0-9); NEUT % 44 % (31-73); PLATELET COUNT 128 x10^3/uL (140-400); RED BLOOD COUNT 3.36 x10^6/uL (3.50-5.40); RED CELL DISTRIBUTION WIDTH 15.1 % (11.5-14.5); WHITE BLOOD COUNT 5.4 x10^3/uL (4.0-11.0)
[2017-05-26 05:13] LABS: CALCIUM 7.9 mg/dL (8.5-10.1); CREATININE 5.4 mg/dL (0.6-1.0); GFR 7.9; POTASSIUM 4.2 mmol/L (3.5-5.1)
[2017-05-26] MEDS: ONDANSETRON ODT 4 MG TAB.RAPDIS. PO SCH ×3 (06:09→20:27)
[2017-05-26 07:00] VITALS: BP 138/64
--- NOTE | 2017-05-26 07:25 | PDOC ---
PROGRESS NOTES Subjective Subjective Patient reports feeling achy all over but less weak than at admission. No stools since admit. Objective Objective Vital Signs Date Time Temp Pulse Resp B/P (MAP) Pulse Ox O2 Delivery O2 Flow Rate FiO2 05/26/17 03:00 98.0 74 20 134/61 (85) 93 Room Air 98.0 Intake and Output 05/26/17 07:00 Intake Total 970 ml Output Total 0 ml Balance 970 ml Intake Oral 970 ml Output Urine Total 0 ml Stool Total 0 ml Physical Exam Abdomen: Normal bowel sounds, Soft, No tenderness Heart: Regular rate Extremities: No edema General: Alert, Oriented X3, No acute distress Lungs: Clear to auscultation Assessment Assessment Problems Medical Problems: (1) Diarrhea Status: Acute (2) Hypoglycemia Status: Acute Plan Plan of Care 1. DM with hypoglycemia - blood sugars much improved. Continue to hold Levemir and her usual mealtime doses, use SS only. Fair appetite. 2. diarrhea with history of C diff - patient has not had any stool since admission yesterday, making C diff less likely. Stool studies are ordered. 3. ESRD - stable, anticipate dialysis tomorrow on her usual schedule. She did not miss any treatments but had a short run on Tuesday due to her illness. 4. HTN - controlled, continue home meds. Comment Review of Relevant I have reviewed the following items cosmo (where applicable) has been applied. Labs Laboratory Tests Test 05/25/17 10:45 05/25/17 10:50 05/25/17 10:52 05/25/17 11:32 White Blood Count 5.8 x10^3/uL (4.0-11.0) Red Blood Count 3.68 x10^6/uL (3.50-5.40) Hemoglobin 12.1 g/dL (12.0-15.5) Hematocrit 34.6 % (36.0-47.0) Mean Corpuscular Volume 94 fL (79-100) Mean Corpuscular Hemoglobin 33 pg (25-35) Mean Corpuscular Hemoglobin Concent 35 g/dL (31-37) Red Cell Distribution Width 14.6 % (11.5-14.5) Platelet Count 150 x10^3/uL (140-400) Neutrophils (%) (Auto) 70 % (31-73) Lymphocytes (%) (Auto) 20 % (24-48) Monocytes (%) (Auto) 8 % (0-9) Eosinophils (%) (Auto) 2 % (0-3) Basophils (%) (Auto) 1 % (0-3) Neutrophils # (Auto) 4.0 x10^3uL (1.8-7.7) Lymphocytes # (Auto) 1.1 x10^3/uL (1.0-4.8) Monocytes # (Auto) 0.5 x10^3/uL (0.0-1.1) Eosinophils # (Auto) 0.1 x10^3/uL (0.0-0.7) Basophils # (Auto) 0.0 x10^3/uL (0.0-0.2) Sodium Level 141 mmol/L (136-145) Potassium Level 3.8 mmol/L (3.5-5.1) Chloride Level 103 mmol/L (98-107) Carbon Dioxide Level 32 mmol/L (21-32) Anion Gap 6 (6-14) Blood Urea Nitrogen 22 mg/dL (7-20) Creatinine 3.7 mg/dL (0.6-1.0) Estimated GFR (Cockcroft-Gault) 12.1 BUN/Creatinine Ratio 6 (6-20) Glucose Level 40 mg/dL (70-99) Calcium Level 8.2 mg/dL (8.5-10.1) Total Bilirubin 0.7 mg/dL (0.2-1.0) Aspartate Amino Transf (AST/SGOT) 36 U/L (15-37) Alanine Aminotransferase (ALT/SGPT) 30 U/L (14-59) Alkaline Phosphatase 808 U/L (46-116) Troponin I Quantitative < 0.017 ng/mL (0.000-0.055) Total Protein 7.6 g/dL (6.4-8.2) Albumin 3.4 g/dL (3.4-5.0) Albumin/Globulin Ratio 0.8 (1.0-1.7) Glucose (Fingerstick) 27 mg/dL (70-99) 30 mg/dL (70-99) 165 mg/dL (70-99) Test 05/25/17 12:55 05/25/17 16:12 05/25/17 20:38 05/26/17 03:50 Glucose (Fingerstick) 126 mg/dL (70-99) 103 mg/dL (70-99) 165 mg/dL (70-99) White Blood Count 5.4 x10^3/uL (4.0-11.0) Red Blood Count 3.36 x10^6/uL (3.50-5.40) Hemoglobin 10.9 g/dL (12.0-15.5) Hematocrit 33.0 % (36.0-47.0) Mean Corpuscular Volume 98 fL (79-100) Mean Corpuscular Hemoglobin 33 pg (25-35) Mean Corpuscular Hemoglobin Concent 33 g/dL (31-37) Red Cell Distribution Width 15.1 % (11.5-14.5) Platelet Count 128 x10^3/uL (140-400) Neutrophils (%) (Auto) 44 % (31-73) Lymphocytes (%) (Auto) 42 % (24-48) Monocytes (%) (Auto) 11 % (0-9) Eosinophils (%) (Auto) 3 % (0-3) Basophils (%) (Auto) 1 % (0-3) Neutrophils # (Auto) 2.4 x10^3uL (1.8-7.7) Lymphocytes # (Auto) 2.3 x10^3/uL (1.0-4.8) Monocytes # (Auto) 0.6 x10^3/uL (0.0-1.1) Eosinophils # (Auto) 0.2 x10^3/uL (0.0-0.7) Basophils # (Auto) 0.0 x10^3/uL (0.0-0.2) Sodium Level 142 mmol/L (136-145) Potassium Level 4.2 mmol/L (3.5-5.1) Chloride Level 103 mmol/L (98-107) Carbon Dioxide Level 30 mmol/L (21-32) Anion Gap 9 (6-14) Blood Urea Nitrogen 33 mg/dL (7-20) Creatinine 5.4 mg/dL (0.6-1.0) Estimated GFR (Cockcroft-Gault) 7.9 Glucose Level 149 mg/dL (70-99) Calcium Level 7.9 mg/dL (8.5-10.1) Laboratory Tests Test 05/25/17 10:45 05/25/17 10:50 05/25/17 10:52 05/25/17 11:32 White Blood Count 5.8 x10^3/uL (4.0-11.0) Red Blood Count 3.68 x10^6/uL (3.50-5.40) Hemoglobin 12.1 g/dL (12.0-15.5) Hematocrit 34.6 % (36.0-47.0) Mean Corpuscular Volume 94 fL (79-100) Mean Corpuscular Hemoglobin 33 pg (25-35) Mean Corpuscular Hemoglobin Concent 35 g/dL (31-37) Red Cell Distribution Width 14.6 % (11.5-14.5) Platelet Count 150 x10^3/uL (140-400) Neutrophils (%) (Auto) 70 % (31-73) Lymphocytes (%) (Auto) 20 % (24-48) Monocytes (%) (Auto) 8 % (0-9) Eosinophils (%) (Auto) 2 % (0-3) Basophils (%) (Auto) 1 % (0-3) Neutrophils # (Auto) 4.0 x10^3uL (1.8-7.7) Lymphocytes # (Auto) 1.1 x10^3/uL (1.0-4.8) Monocytes # (Auto) 0.5 x10^3/uL (0.0-1.1) Eosinophils # (Auto) 0.1 x10^3/uL (0.0-0.7) Basophils # (Auto) 0.0 x10^3/uL (0.0-0.2) Sodium Level 141 mmol/L (136-145) Potassium Level 3.8 mmol/L (3.5-5.1) Chloride Level 103 mmol/L (98-107) Carbon Dioxide Level 32 mmol/L (21-32) Anion Gap 6 (6-14) Blood Urea Nitrogen 22 mg/dL (7-20) Creatinine 3.7 mg/dL (0.6-1.0) Estimated GFR (Cockcroft-Gault) 12.1 BUN/Creatinine Ratio 6 (6-20) Glucose Level 40 mg/dL (70-99) Calcium Level 8.2 mg/dL (8.5-10.1) Total Bilirubin 0.7 mg/dL (0.2-1.0) Aspartate Amino Transf (AST/SGOT) 36 U/L (15-37) Alanine Aminotransferase (ALT/SGPT) 30 U/L (14-59) Alkaline Phosphatase 808 U/L (46-116) Troponin I Quantitative < 0.017 ng/mL (0.000-0.055) Total Protein 7.6 g/dL (6.4-8.2) Albumin 3.4 g/dL (3.4-5.0) Albumin/Globulin Ratio 0.8 (1.0-1.7) Glucose (Fingerstick) 27 mg/dL (70-99) 30 mg/dL (70-99) 165 mg/dL (70-99) Test 05/25/17 12:55 05/25/17 16:12 05/25/17 20:38 05/26/17 03:50 Glucose (Fingerstick) 126 mg/dL (70-99) 103 mg/dL (70-99) 165 mg/dL (70-99) White Blood Count 5.4 x10^3/uL (4.0-11.0) Red Blood Count 3.36 x10^6/uL (3.50-5.40) Hemoglobin 10.9 g/dL (12.0-15.5) Hematocrit 33.0 % (36.0-47.0) Mean Corpuscular Volume 98 fL (79-100) Mean Corpuscular Hemoglobin 33 pg (25-35) Mean Corpuscular Hemoglobin Concent 33 g/dL (31-37) Red Cell Distribution Width 15.1 % (11.5-14.5) Platelet Count 128 x10^3/uL (140-400) Neutrophils (%) (Auto) 44 % (31-73) Lymphocytes (%) (Auto) 42 % (24-48) Monocytes (%) (Auto) 11 % (0-9) Eosinophils (%) (Auto) 3 % (0-3) Basophils (%) (Auto) 1 % (0-3) Neutrophils # (Auto) 2.4 x10^3uL (1.8-7.7) Lymphocytes # (Auto) 2.3 x10^3/uL (1.0-4.8) Monocytes # (Auto) 0.6 x10^3/uL (0.0-1.1) Eosinophils # (Auto) 0.2 x10^3/uL (0.0-0.7) Basophils # (Auto) 0.0 x10^3/uL (0.0-0.2) Sodium Level 142 mmol/L (136-145) Potassium Level 4.2 mmol/L (3.5-5.1) Chloride Level 103 mmol/L (98-107) Carbon Dioxide Level 30 mmol/L (21-32) Anion Gap 9 (6-14) Blood Urea Nitrogen 33 mg/dL (7-20) Creatinine 5.4 mg/dL (0.6-1.0) Estimated GFR (Cockcroft-Gault) 7.9 Glucose Level 149 mg/dL (70-99) Calcium Level 7.9 mg/dL (8.5-10.1) Medications Current Medications Dextrose (Dextrose 50%-Water Syringe) 25 gm 1X ONCE IV Last administered on 10:58; Start 05/25/17 at 11:30; Stop 05/25/17 at 11:31; Status DC Acetaminophen (Tylenol) 650 mg Q6H PRN PO HEADACHE, FEVER; Start 05/25/17 at 12: 15 Amlodipine Besylate (Norvasc) 10 mg DAILY PO Last administered on 05/25/17 17: 41; Start 05/25/17 at 17:00 Aspirin (Children'S Aspirin) 81 mg DAILYWBKFT PO Last administered on 05/25/17 17:41; Start 05/25/17 at 17:00 Cetirizine HCl (ZyrTEC) 10 mg DAILY PO Last administered on 05/25/17 17:42; Start 05/25/17 at 17:00 Clonidine HCl (Catapres) 0.1 mg BID PO Last administered on 05/25/17 21:12; Start 05/25/17 at 21:00 Gabapentin (Neurontin) 200 mg BID PO Last administered on 05/25/17 21:12; Start 05/25/17 at 21:00 Hydralazine HCl (Apresoline) 50 mg TID PO Last administered on 05/25/17 21:12; Start 05/25/17 at 21:00 Acetaminophen/ Hydrocodone Bitart (Lortab 7.5/325) 1 tab PRN Q4HRS PRN PO PAIN Last administered on 05/25/17 17:40; Start 05/25/17 at 16:45 Labetalol HCl (Trandate) 400 mg DAILY PO ; Start 05/26/17 at 09:00 Losartan Potassium (Cozaar) 100 mg DAILY PO Last administered on 05/25/17 17:51 ; Start 05/25/17 at 17:00 Sevelamer Carbonate (Renvela) 1,600 mg [id number] PO Last administered on 05/25/17 17:52; Start 05/25/17 at 18:00 Fluticasone Propionate (Flonase) 2 spray DAILY NS ; Start 05/26/17 at 09:00 Pantoprazole Sodium (Protonix) 40 mg DAILYAC PO Last administered on 05/25/17 17:40; Start 05/25/17 at 17:00 Ondansetron HCl (Zofran Odt) 4 mg Q8HRS PO Last administered on 05/26/17 06:09 ; Start 05/25/17 at 17:00 Vitamin B Complex/ Vitamin C (Windy-Abby) 1 tab DAILY PO ; Start 05/26/17 at 09: 00 Insulin Aspart (NovoLOG) 0-7 UNITS TIDWMEALS SQ ; Start 05/25/17 at 17:00 Dextrose (Dextrose 50%-Water Syringe) 12.5 gm PRN Q15MIN PRN IV SEE COMMENTS; Start 05/25/17 at 17:00 Active Scripts Active Novolog Flexpen (Insulin Aspart) 100 Unit/1 Ml Insuln.pen 0 Units SQ TIDWMEALS 30 Days Hydrocodone-Apap 7.5-325 (Hydrocodone Bit/Acetaminophen) 1 Each Tablet 1 Tab PO PRN Q4HRS PRN 10 Days Children's Aspirin (Aspirin) 81 Mg Tab.chew 81 Mg PO DAILYWBKFT 30 Days Zofran (Ondansetron Hcl) 4 Mg Tablet 1 Tab PO Q8HRS Cozaar (Losartan Potassium) 50 Mg Tablet 100 Mg PO DAILY Reported Hydralazine Hcl 50 Mg Tablet 1 Tab PO TID Guaifenesin-Codeine Liquid (Guaifenesin/Codeine Phosphate) 118 Ml Liquid 5 Ml PO PRN Q6HRS PRN Levemir (Insulin Detemir) 100 Unit/1 Ml Vial 7 Unit SQ HS Gabapentin 100 Mg Capsule 200 Mg PO BID Cetirizine Hcl 10 Mg Tablet 1 Tab PO DAILY Thera-M (Multivits,Th W-Fe,Other Min) 1 Each Tablet 1 Each PO DAILY Miralax (Polyethylene Glycol 3350) 17 Gm Powd.pack 1 Packet PO DAILY Colace (Docusate Sodium) 100 Mg Capsule 1 Cap PO DAILY Tylenol (Acetaminophen) 325 Mg Tablet 2 Tab PO PRN Q6HRS PRN Clonidine Hcl 0.1 Mg Tablet 0.1 Mg PO BID Alendronate Sodium 70 Mg Tablet 70 Mg PO WEEKLY Labetalol Hcl 200 Mg Tablet 2 Tab PO DAILY Flonase Allergy Relief (Fluticasone Propionate) 9.9 Ml [place].susp 2 Sprays NS DAILY Calcium 600 + Vit D 400 Caplet (Calcium Carbonate/Vitamin D3) 1 Each Tablet 1 Each PO DAILY Renvela (Sevelamer Carbonate) 800 Mg Tablet 2 Tab PO [id number] Norvasc (Amlodipine Besylate) 10 Mg Tablet 10 Mg PO DAILY Windy-Abby Rx Tablet (Vit B Cmplx 3/Fa/Vit C/Biotin) 1 Each Tablet 1 Each PO DAILY Prilosec (Omeprazole) 20 Mg Capsule.dr 20 Mg PO DAILY Vitals/I & O Vital Sign - Last 24 Hours 05/25/17 05/25/17 05/25/17 05/25/17 10:27 11:39 13:23 14:50 Temp 97.8 97.6 98.4 97.8 97.6 98.4 Pulse 78 82 85 87 Resp 20 18 20 B/P (MAP) 159/70 (99) 169/81 (110) 154/68 (96) 154/73 (100) Pulse Ox 97 95 92 95 O2 Delivery Room Air Room Air Room Air Room Air 05/25/17 05/25/17 05/25/17 05/25/17 15:39 16:39 17:40 17:41 Temp 98.4 98.4 Pulse 85 85 Resp 18 B/P (MAP) 154/68 (96) 154/68 Pulse Ox 95 O2 Delivery Room Air Room Air Room Air 05/25/17 05/25/17 05/25/17 05/25/17 17:51 18:40 19:00 20:00 Temp 99.3 99.3 Pulse 85 93 Resp 20 B/P (MAP) 154/68 164/76 (105) Pulse Ox 95 92 O2 Delivery Room Air Room Air Room Air 05/25/17 05/25/17 05/25/17 05/26/17 21:12 21:12 23:00 03:00 Temp 97.9 98.0 97.9 98.0 Pulse 93 93 80 74 Resp 20 20 B/P (MAP) 164/76 164/76 142/68 (92) 134/61 (85) Pulse Ox 94 93 O2 Delivery Room Air Room Air Intake and Output 05/25/17 05/25/17 05/26/17 15:00 23:00 07:00 Intake Total 320 ml 650 ml Output Total 0 ml Balance 320 ml 650 ml ARELI MATIAS MD May 26, 2017 07:25
[2017-05-26] MEDS: INSULIN ASPART 300 UNITS/3 ML INSULN.PEN SQ SCH ×3 (08:00→17:44)
[2017-05-26] MEDS: PANTOPRAZOLE 40 MG TABLET.DR. PO SCH (08:04)
[2017-05-26] MEDS: SEVELAMER CARBONATE 800 MG TABLET. PO SCH ×3 (08:08→17:38)
--- NOTE | 2017-05-26 08:21 | HP ---
ADMIT DATE: 05/25/2017 CHIEF COMPLAINT: Diarrhea and weakness. HISTORY OF PRESENT ILLNESS: The patient is a 67-year-old female who is on dialysis due to end-stage renal disease. She presented to the Emergency Room reporting a several day history of worsening diarrhea. She apparently had loose stools for several days. She did not have any emesis, but had decreased appetite and decreased oral intake. She went to her usual dialysis on Tuesday after taking several Imodium at home. She began to feel quite weak and much worse at dialysis. Her treatment was stopped early and she was transferred to the Emergency Room. Initial evaluation there showed her to have a blood sugar of 40. Treatment was started and she was admitted for further care. PAST MEDICAL HISTORY: End-stage renal disease on dialysis, diabetes mellitus type 2 insulin-dependent, hypertension, osteoarthritis and mild coronary artery disease. Mild coronary artery disease was seen on cardiac catheterization 04/02 with a preserved ejection fraction. Previous C. difficile colitis, osteoporosis. PAST SURGICAL HISTORY: , tonsillectomy, bilateral tubal ligation, bilateral rotator cuff repair, left forearm dialysis shunt, closed reduction and external fixator, left ankle after fracture 10/01, cholecystectomy and hysterectomy. ALLERGIES: The patient has no known drug allergies. HOME MEDICATIONS: Alendronate 70 mg weekly, amlodipine 10 mg daily, aspirin 81 mg daily, calcium with vitamin D daily, Zyrtec 10 mg p.r.n., clonidine 0.1 mg b.i.d., Flonase as needed, gabapentin 200 mg b.i.d., hydralazine 50 mg t.i.d., Cataldo p.r.n., NovoLog insulin sliding scale at home, Levemir 7 units at bedtime, labetalol 200 mg 2 tablets daily, losartan 100 mg daily, omeprazole 20 mg daily, Renvela 800 mg 2 tablets t.i.d. and renal vitamin daily. FAMILY HISTORY: Noncontributory. SOCIAL HISTORY: The patient is single. She lives with her daughter who helps provide her care at home. She does not smoke cigarettes or drink alcohol. REVIEW OF SYSTEMS: The patient had some subjective fever several days prior to admission, but none since. She denies cough or shortness of breath. She denies chest pain or palpitations. She did not really have much abdominal pain with her diarrhea. She has had some mild nausea and decreased appetite, but no emesis. She denies lower extremity edema. Her chronic back pain has been controlled with her usual hydrocodone. She has not missed any dialysis treatments. PHYSICAL EXAMINATION: GENERAL: The patient is alert and oriented x 3, resting comfortably in bed in no acute distress. HEENT: PERRL, EOMI, sclerae clear. Oropharynx: Mucous membranes moist. NECK: Supple without lymphadenopathy. CHEST: Clear to auscultation with normal respiratory effort and good breath sounds throughout. CARDIOVASCULAR: Regular rhythm without murmur. ABDOMEN: Soft, nontender, normoactive bowel sounds are present. EXTREMITIES: Without edema. NEUROLOGIC: Grossly intact. ASSESSMENT AND PLAN: 1. Diabetes mellitus with hypoglycemia. The patient's usual insulins have been held and her fingersticks are much improved. We will continue to use sliding scale insulin only and she is encouraged to take as much of her diet as she comfortably can. 2. Diarrhea with a history of C. difficile colitis. The patient has not had any stool since admission, making C. difficile colitis less likely at this time. Stool studies are ordered if the patient does have a bowel movement. 3. End-stage renal disease. This is stable, anticipate dialysis tomorrow on her usual schedule. 4. Hypertension. This is controlled. Continue her home medications. 5. Osteoarthritis. This is stable, continue hydrocodone as needed. ARELI MATIAS MD DR: EVONNE/ronaldo JOB#: [id number] / [id number] NISHA
[2017-05-26] MEDS: FLUTICASONE 50MCG/NASAL SPRAY 16GM BOTTLE. NS SCH (09:01)
[2017-05-26] MEDS: FOLIC/VIT B COMP W-C (RENAL) TABLET. PO SCH (09:01)
[2017-05-26] MEDS: amLODIPine BESYLATE 10 MG TABLET PO SCH (09:01)
[2017-05-26] MEDS: GABAPENTIN 100 MG CAPSULE. PO SCH ×2 (09:01→20:27)
[2017-05-26] MEDS: LABETALOL HCL 200 MG TABLET PO SCH (09:02)
[2017-05-26] MEDS: LOSARTAN POTASSIUM 50 MG TABLET. PO SCH (09:02)
[2017-05-26] MEDS: ASPIRIN CHEWABLE 81 MG TABLET. PO SCH (09:02)
[2017-05-26] MEDS: HYDROcodone/APAP 7.5/325MG 1 TAB TABLET PO PRN ×2 (09:03→14:42)
[2017-05-26] MEDS: CETIRIZINE HCL 10 MG TABLET. PO SCH (09:03)
[2017-05-26] MEDS: cloNIDine HCL 0.1 MG TABLET PO SCH ×2 (09:03→20:27)
[2017-05-26 11:02] VITALS: BP 123/48
--- NOTE | 2017-05-26 12:04 | PDOC2 ---
CONSULT Date of Consult Date of Consult DATE: 05/26/17 TIME: 12:00 Reason for Consult Reason for Consult: ESRD Referring Physician Referring Physician: FLORENCIO Identification/Chief Complaint Chief Complaint WEAKNESS, CRAMPING AND DIARRHEA Problems: Source Source: Chart review, Patient History of Present Illness Reason for Visit: THIS IS A 67 YR OLD ADMITTED WITH ABD PAIN AND SEVERAL DAY HX OF DIARRHEA. SHE HAS ESRD AND IS ON OP HD ON MWF. SHE WAS AT DIALYSIS FOR ABOUT 2 HRS YESTERDAY WHEN SHE HAD DIARRHEA AGAIN. SHE HAD SOME HYPOTENSION, GIVEN SOME FLUIDS AND TAKEN OFF HD. SHE FELT BAD ENOUGH TO COME TO THE ER. SHE IS ADMITTED WITH POSSIBLE C DIF AND DEHYDRATION. LABS ARE C/W ESRD Past Medical History Cardiovascular: CAD, CHF, HTN, Hyperlipidemia Pulmonary: Pneumonia CENTRAL NERVOUS SYSTEM: Periperal neuropathy, TIA GI: GERD Heme/Onc: Anemia NOS Hepatobiliary: Cholelithiasis Psych: Depression Musculoskeletal: Osteoarthritis, Other Rheumatologic: No pertinent hx Infectious disease: No pertinent hx Renal/: Chronic renal failure, UTI, Other Endocrine: Diabetes, Hyperparathyroidism Past Surgical History Past Surgical History: Arthroscopy, Cholecystectomy, , Tonsillectomy, Hysterectomy, Other Family History Family History: Diabetes, Hypertension, Stroke Social History ALCOHOL: none Drugs: None Lives: with Family Domestic Violence: Neg Current Problem List Problem List Problems Medical Problems: (1) Diarrhea Status: Acute (2) Hypoglycemia Status: Acute Current Medications Current Medications Current Medications Dextrose (Dextrose 50%-Water Syringe) 25 gm 1X ONCE IV Last administered on 10:58; Start 05/25/17 at 11:30; Stop 05/25/17 at 11:31; Status DC Acetaminophen (Tylenol) 650 mg Q6H PRN PO HEADACHE, FEVER; Start 05/25/17 at 12: 15 Amlodipine Besylate (Norvasc) 10 mg DAILY PO Last administered on 05/26/17 09: 01; Start 05/25/17 at 17:00 Aspirin (Children'S Aspirin) 81 mg DAILYWBKFT PO Last administered on 09:02; Start 05/25/17 at 17:00 Cetirizine HCl (ZyrTEC) 10 mg DAILY PO Last administered on 05/26/17 09:03; Start 05/25/17 at 17:00 Clonidine HCl (Catapres) 0.1 mg BID PO Last administered on 05/26/17 09:03; Start 05/25/17 at 21:00 Gabapentin (Neurontin) 200 mg BID PO Last administered on 05/26/17 09:01; Start 05/25/17 at 21:00 Hydralazine HCl (Apresoline) 50 mg TID PO Last administered on 05/26/17 09:03 ; Start 05/25/17 at 21:00 Acetaminophen/ Hydrocodone Bitart (Lortab 7.5/325) 1 tab PRN Q4HRS PRN PO PAIN Last administered on 05/26/17 09:03; Start 05/25/17 at 16:45 Labetalol HCl (Trandate) 400 mg DAILY PO Last administered on 05/26/17 09:02; Start 05/26/17 at 09:00 Losartan Potassium (Cozaar) 100 mg DAILY PO Last administered on 05/26/17 09: 02; Start 05/25/17 at 17:00 Sevelamer Carbonate (Renvela) 1,600 mg [id number] PO Last administered on 11:38; Start 05/25/17 at 18:00 Fluticasone Propionate (Flonase) 2 spray DAILY NS Last administered on 09:01; Start 05/26/17 at 09:00 Pantoprazole Sodium (Protonix) 40 mg DAILYAC PO Last administered on 05/26/17 08:04; Start 05/25/17 at 17:00 Ondansetron HCl (Zofran Odt) 4 mg Q8HRS PO Last administered on 05/26/17 06:09 ; Start 05/25/17 at 17:00 Vitamin B Complex/ Vitamin C (Windy-Abby) 1 tab DAILY PO Last administered on 09:01; Start 05/26/17 at 09:00 Insulin Aspart (NovoLOG) 0-7 UNITS TIDWMEALS SQ ; Start 05/25/17 at 17:00 Dextrose (Dextrose 50%-Water Syringe) 12.5 gm PRN Q15MIN PRN IV SEE COMMENTS; Start 05/25/17 at 17:00 Active Scripts Active Novolog Flexpen (Insulin Aspart) 100 Unit/1 Ml Insuln.pen 0 Units SQ TIDWMEALS 30 Days Hydrocodone-Apap 7.5-325 (Hydrocodone Bit/Acetaminophen) 1 Each Tablet 1 Tab PO PRN Q4HRS PRN 10 Days Children's Aspirin (Aspirin) 81 Mg Tab.chew 81 Mg PO DAILYWBKFT 30 Days Zofran (Ondansetron Hcl) 4 Mg Tablet 1 Tab PO Q8HRS Cozaar (Losartan Potassium) 50 Mg Tablet 100 Mg PO DAILY Reported Hydralazine Hcl 50 Mg Tablet 1 Tab PO TID Guaifenesin-Codeine Liquid (Guaifenesin/Codeine Phosphate) 118 Ml Liquid 5 Ml PO PRN Q6HRS PRN Levemir (Insulin Detemir) 100 Unit/1 Ml Vial 7 Unit SQ HS Gabapentin 100 Mg Capsule 200 Mg PO BID Cetirizine Hcl 10 Mg Tablet 1 Tab PO DAILY Thera-M (Multivits, W-,Other Min) 1 Each Tablet 1 Each PO DAILY Miralax (Polyethylene Glycol 3350) 17 Gm Powd.pack 1 Packet PO DAILY Colace (Docusate Sodium) 100 Mg Capsule 1 Cap PO DAILY Tylenol (Acetaminophen) 325 Mg Tablet 2 Tab PO PRN Q6HRS PRN Clonidine Hcl 0.1 Mg Tablet 0.1 Mg PO BID Alendronate Sodium 70 Mg Tablet 70 Mg PO WEEKLY Labetalol Hcl 200 Mg Tablet 2 Tab PO DAILY Flonase Allergy Relief (Fluticasone Propionate) 9.9 Ml [place].susp 2 Sprays NS DAILY Calcium 600 + Vit D 400 Caplet (Calcium Carbonate/Vitamin D3) 1 Each Tablet 1 Each PO DAILY Renvela (Sevelamer Carbonate) 800 Mg Tablet 2 Tab PO [id number] Norvasc (Amlodipine Besylate) 10 Mg Tablet 10 Mg PO DAILY Windy-Abby Rx Tablet (Vit B Cmplx 3/Fa/Vit C/Biotin) 1 Each Tablet 1 Each PO DAILY Prilosec (Omeprazole) 20 Mg Capsule.dr 20 Mg PO DAILY Allergies Allergies: Coded Allergies: No Known Drug Allergies (Unverified , 11/01/16) ROS General: YES: Fatigue, Malaise, Appetite PSYCHOLOGICAL ROS: YES: Anxiety Eyes: Yes Decreased vision HEENT: YES: Heacaches Respiratory: YES: Cough Gastrointestinal: Yes Nausea, Yes Abdominal Pain, Yes Diarrhea Genitourinary: YES Other (ANURIA) Musculoskeletal: Yes Joint Stiffness, Yes Muscular Weakness Neurological: Yes Weakness Skin: Yes Dry Skin Physical Exam General: Alert, Oriented X3, Cooperative, No acute distress HEENT: Atraumatic, PERRLA, EOMI Lungs: Clear to auscultation Heart: Regular rate, Normal S1, Normal S2 Abdomen: Normal bowel sounds, Soft, No tenderness Extremities: No clubbing, No edema Skin: No rashes Neuro: Normal speech Psych/Mental Status: Mental status NL, Mood NL MUSCULOSKELETAL: No deformity, No swelling Vitals VITALS Vital Signs Date Time Temp Pulse Resp B/P (MAP) Pulse Ox O2 Delivery O2 Flow Rate FiO2 05/26/17 11:02 97.7 71 16 123/48 (73) 92 Nasal Cannula 2.0 97.7 Labs Labs Laboratory Tests Test 05/25/17 10:45 05/25/17 10:50 05/25/17 10:52 05/25/17 11:32 White Blood Count 5.8 x10^3/uL (4.0-11.0) Red Blood Count 3.68 x10^6/uL (3.50-5.40) Hemoglobin 12.1 g/dL (12.0-15.5) Hematocrit 34.6 % (36.0-47.0) Mean Corpuscular Volume 94 fL (79-100) Mean Corpuscular Hemoglobin 33 pg (25-35) Mean Corpuscular Hemoglobin Concent 35 g/dL (31-37) Red Cell Distribution Width 14.6 % (11.5-14.5) Platelet Count 150 x10^3/uL (140-400) Neutrophils (%) (Auto) 70 % (31-73) Lymphocytes (%) (Auto) 20 % (24-48) Monocytes (%) (Auto) 8 % (0-9) Eosinophils (%) (Auto) 2 % (0-3) Basophils (%) (Auto) 1 % (0-3) Neutrophils # (Auto) 4.0 x10^3uL (1.8-7.7) Lymphocytes # (Auto) 1.1 x10^3/uL (1.0-4.8) Monocytes # (Auto) 0.5 x10^3/uL (0.0-1.1) Eosinophils # (Auto) 0.1 x10^3/uL (0.0-0.7) Basophils # (Auto) 0.0 x10^3/uL (0.0-0.2) Sodium Level 141 mmol/L (136-145) Potassium Level 3.8 mmol/L (3.5-5.1) Chloride Level 103 mmol/L (98-107) Carbon Dioxide Level 32 mmol/L (21-32) Anion Gap 6 (6-14) Blood Urea Nitrogen 22 mg/dL (7-20) Creatinine 3.7 mg/dL (0.6-1.0) Estimated GFR (Cockcroft-Gault) 12.1 BUN/Creatinine Ratio 6 (6-20) Glucose Level 40 mg/dL (70-99) Calcium Level 8.2 mg/dL (8.5-10.1) Total Bilirubin 0.7 mg/dL (0.2-1.0) Aspartate Amino Transf (AST/SGOT) 36 U/L (15-37) Alanine Aminotransferase (ALT/SGPT) 30 U/L (14-59) Alkaline Phosphatase 808 U/L (46-116) Troponin I Quantitative < 0.017 ng/mL (0.000-0.055) Total Protein 7.6 g/dL (6.4-8.2) Albumin 3.4 g/dL (3.4-5.0) Albumin/Globulin Ratio 0.8 (1.0-1.7) Glucose (Fingerstick) 27 mg/dL (70-99) 30 mg/dL (70-99) 165 mg/dL (70-99) Test 05/25/17 12:55 05/25/17 16:12 05/25/17 20:38 05/26/17 03:50 Glucose (Fingerstick) 126 mg/dL (70-99) 103 mg/dL (70-99) 165 mg/dL (70-99) White Blood Count 5.4 x10^3/uL (4.0-11.0) Red Blood Count 3.36 x10^6/uL (3.50-5.40) Hemoglobin 10.9 g/dL (12.0-15.5) Hematocrit 33.0 % (36.0-47.0) Mean Corpuscular Volume 98 fL (79-100) Mean Corpuscular Hemoglobin 33 pg (25-35) Mean Corpuscular Hemoglobin Concent 33 g/dL (31-37) Red Cell Distribution Width 15.1 % (11.5-14.5) Platelet Count 128 x10^3/uL (140-400) Neutrophils (%) (Auto) 44 % (31-73) Lymphocytes (%) (Auto) 42 % (24-48) Monocytes (%) (Auto) 11 % (0-9) Eosinophils (%) (Auto) 3 % (0-3) Basophils (%) (Auto) 1 % (0-3) Neutrophils # (Auto) 2.4 x10^3uL (1.8-7.7) Lymphocytes # (Auto) 2.3 x10^3/uL (1.0-4.8) Monocytes # (Auto) 0.6 x10^3/uL (0.0-1.1) Eosinophils # (Auto) 0.2 x10^3/uL (0.0-0.7) Basophils # (Auto) 0.0 x10^3/uL (0.0-0.2) Sodium Level 142 mmol/L (136-145) Potassium Level 4.2 mmol/L (3.5-5.1) Chloride Level 103 mmol/L (98-107) Carbon Dioxide Level 30 mmol/L (21-32) Anion Gap 9 (6-14) Blood Urea Nitrogen 33 mg/dL (7-20) Creatinine 5.4 mg/dL (0.6-1.0) Estimated GFR (Cockcroft-Gault) 7.9 Glucose Level 149 mg/dL (70-99) Calcium Level 7.9 mg/dL (8.5-10.1) Test 05/26/17 07:09 05/26/17 11:13 Glucose (Fingerstick) 102 mg/dL (70-99) 119 mg/dL (70-99) Laboratory Tests Test 05/25/17 12:55 05/25/17 16:12 05/25/17 20:38 05/26/17 03:50 Glucose (Fingerstick) 126 mg/dL (70-99) 103 mg/dL (70-99) 165 mg/dL (70-99) White Blood Count 5.4 x10^3/uL (4.0-11.0) Red Blood Count 3.36 x10^6/uL (3.50-5.40) Hemoglobin 10.9 g/dL (12.0-15.5) Hematocrit 33.0 % (36.0-47.0) Mean Corpuscular Volume 98 fL (79-100) Mean Corpuscular Hemoglobin 33 pg (25-35) Mean Corpuscular Hemoglobin Concent 33 g/dL (31-37) Red Cell Distribution Width 15.1 % (11.5-14.5) Platelet Count 128 x10^3/uL (140-400) Neutrophils (%) (Auto) 44 % (31-73) Lymphocytes (%) (Auto) 42 % (24-48) Monocytes (%) (Auto) 11 % (0-9) Eosinophils (%) (Auto) 3 % (0-3) Basophils (%) (Auto) 1 % (0-3) Neutrophils # (Auto) 2.4 x10^3uL (1.8-7.7) Lymphocytes # (Auto) 2.3 x10^3/uL (1.0-4.8) Monocytes # (Auto) 0.6 x10^3/uL (0.0-1.1) Eosinophils # (Auto) 0.2 x10^3/uL (0.0-0.7) Basophils # (Auto) 0.0 x10^3/uL (0.0-0.2) Sodium Level 142 mmol/L (136-145) Potassium Level 4.2 mmol/L (3.5-5.1) Chloride Level 103 mmol/L (98-107) Carbon Dioxide Level 30 mmol/L (21-32) Anion Gap 9 (6-14) Blood Urea Nitrogen 33 mg/dL (7-20) Creatinine 5.4 mg/dL (0.6-1.0) Estimated GFR (Cockcroft-Gault) 7.9 Glucose Level 149 mg/dL (70-99) Calcium Level 7.9 mg/dL (8.5-10.1) Test 05/26/17 07:09 05/26/17 11:13 Glucose (Fingerstick) 102 mg/dL (70-99) 119 mg/dL (70-99) Assessment/Plan Assessment/Plan IMP ESRD DEHYDRATION ANEMIA DM II HTN GASTROENTERITIS WITH HX OF C DIF PLAN HD TOMORROW ENC PO FLUID INTAKE IVF'S IF NEEDED DAKOTA ARIAS MD May 26, 2017 12:04
[2017-05-26 14:52] VITALS: BP 91/45
[2017-05-26 19:00] VITALS: BP 104/44
[2017-05-26 23:00] VITALS: BP 120/36
[2017-05-27 03:11] VITALS: BP 134/56
[2017-05-27] MEDS: SEVELAMER CARBONATE 800 MG TABLET. PO SCH ×3 (05:55→20:45)
[2017-05-27] MEDS: PANTOPRAZOLE 40 MG TABLET.DR. PO SCH (05:55)
[2017-05-27] MEDS: ONDANSETRON ODT 4 MG TAB.RAPDIS. PO SCH ×3 (05:55→20:45)
[2017-05-27 06:37] LABS: CALCIUM 8.1 mg/dL (8.5-10.1); CREATININE 7.1 mg/dL (0.6-1.0); GFR 5.7; POTASSIUM 4.7 mmol/L (3.5-5.1)
[2017-05-27 06:44] LABS: HEMATOCRIT 33.9 % (36.0-47.0); HEMOGLOBIN 11.6 g/dL (12.0-15.5); RED BLOOD COUNT 3.5 x10^6/uL (3.50-5.40); RED CELL DISTRIBUTION WIDTH 15.1 % (11.5-14.5); WHITE BLOOD COUNT 4.6 x10^3/uL (4.0-11.0)
[2017-05-27] MEDS: INSULIN ASPART 300 UNITS/3 ML INSULN.PEN SQ SCH ×3 (08:00→17:00)
[2017-05-27 08:02] VITALS: BP 141/60
--- NOTE | 2017-05-27 08:31 | PDOC ---
PROGRESS NOTES Subjective Subjective Patient reports several loose stools yesterday, feels tired today. Denies abdominal pain or nausea. Objective Objective Vital Signs Date Time Temp Pulse Resp B/P (MAP) Pulse Ox O2 Delivery O2 Flow Rate FiO2 05/27/17 08:02 95.2 67 16 141/60 (87) 95 Room Air 95.2 05/26/17 15:52 2.0 Intake and Output 05/27/17 07:00 Intake Total 720 ml Output Total 3 ml Balance 717 ml Intake Oral 720 ml Stool Total 3 ml # Bowel Movements 3 Physical Exam Abdomen: Normal bowel sounds, Soft, No tenderness Heart: Regular rate Extremities: No edema General: Alert, Oriented X3, No acute distress Lungs: Clear to auscultation Assessment Assessment Problems Medical Problems: (1) Diarrhea Status: Acute (2) Hypoglycemia Status: Acute Plan Plan of Care 1. Diarrhea - recurred last night. Stool studies, including C diff toxin, are pending. Will start po Vanco now as patient has hx of C diff. 2. ESRD - dialysis today as scheduled. 3. DM2 - stable, continue SS insulin. 4. HTN - patient had one low BP yesterday, continue home meds. 5. OA - stable, continue Mccrory as needed. Comment Review of Relevant I have reviewed the following items cosmo (where applicable) has been applied. Labs Laboratory Tests Test 05/25/17 10:45 05/25/17 10:50 05/25/17 10:52 05/25/17 11:32 White Blood Count 5.8 x10^3/uL (4.0-11.0) Red Blood Count 3.68 x10^6/uL (3.50-5.40) Hemoglobin 12.1 g/dL (12.0-15.5) Hematocrit 34.6 % (36.0-47.0) Mean Corpuscular Volume 94 fL (79-100) Mean Corpuscular Hemoglobin 33 pg (25-35) Mean Corpuscular Hemoglobin Concent 35 g/dL (31-37) Red Cell Distribution Width 14.6 % (11.5-14.5) Platelet Count 150 x10^3/uL (140-400) Neutrophils (%) (Auto) 70 % (31-73) Lymphocytes (%) (Auto) 20 % (24-48) Monocytes (%) (Auto) 8 % (0-9) Eosinophils (%) (Auto) 2 % (0-3) Basophils (%) (Auto) 1 % (0-3) Neutrophils # (Auto) 4.0 x10^3uL (1.8-7.7) Lymphocytes # (Auto) 1.1 x10^3/uL (1.0-4.8) Monocytes # (Auto) 0.5 x10^3/uL (0.0-1.1) Eosinophils # (Auto) 0.1 x10^3/uL (0.0-0.7) Basophils # (Auto) 0.0 x10^3/uL (0.0-0.2) Sodium Level 141 mmol/L (136-145) Potassium Level 3.8 mmol/L (3.5-5.1) Chloride Level 103 mmol/L (98-107) Carbon Dioxide Level 32 mmol/L (21-32) Anion Gap 6 (6-14) Blood Urea Nitrogen 22 mg/dL (7-20) Creatinine 3.7 mg/dL (0.6-1.0) Estimated GFR (Cockcroft-Gault) 12.1 BUN/Creatinine Ratio 6 (6-20) Glucose Level 40 mg/dL (70-99) Calcium Level 8.2 mg/dL (8.5-10.1) Total Bilirubin 0.7 mg/dL (0.2-1.0) Aspartate Amino Transf (AST/SGOT) 36 U/L (15-37) Alanine Aminotransferase (ALT/SGPT) 30 U/L (14-59) Alkaline Phosphatase 808 U/L (46-116) Troponin I Quantitative < 0.017 ng/mL (0.000-0.055) Total Protein 7.6 g/dL (6.4-8.2) Albumin 3.4 g/dL (3.4-5.0) Albumin/Globulin Ratio 0.8 (1.0-1.7) Glucose (Fingerstick) 27 mg/dL (70-99) 30 mg/dL (70-99) 165 mg/dL (70-99) Test 05/25/17 12:55 05/25/17 16:12 05/25/17 20:38 05/26/17 03:50 Glucose (Fingerstick) 126 mg/dL (70-99) 103 mg/dL (70-99) 165 mg/dL (70-99) White Blood Count 5.4 x10^3/uL (4.0-11.0) Red Blood Count 3.36 x10^6/uL (3.50-5.40) Hemoglobin 10.9 g/dL (12.0-15.5) Hematocrit 33.0 % (36.0-47.0) Mean Corpuscular Volume 98 fL (79-100) Mean Corpuscular Hemoglobin 33 pg (25-35) Mean Corpuscular Hemoglobin Concent 33 g/dL (31-37) Red Cell Distribution Width 15.1 % (11.5-14.5) Platelet Count 128 x10^3/uL (140-400) Neutrophils (%) (Auto) 44 % (31-73) Lymphocytes (%) (Auto) 42 % (24-48) Monocytes (%) (Auto) 11 % (0-9) Eosinophils (%) (Auto) 3 % (0-3) Basophils (%) (Auto) 1 % (0-3) Neutrophils # (Auto) 2.4 x10^3uL (1.8-7.7) Lymphocytes # (Auto) 2.3 x10^3/uL (1.0-4.8) Monocytes # (Auto) 0.6 x10^3/uL (0.0-1.1) Eosinophils # (Auto) 0.2 x10^3/uL (0.0-0.7) Basophils # (Auto) 0.0 x10^3/uL (0.0-0.2) Sodium Level 142 mmol/L (136-145) Potassium Level 4.2 mmol/L (3.5-5.1) Chloride Level 103 mmol/L (98-107) Carbon Dioxide Level 30 mmol/L (21-32) Anion Gap 9 (6-14) Blood Urea Nitrogen 33 mg/dL (7-20) Creatinine 5.4 mg/dL (0.6-1.0) Estimated GFR (Cockcroft-Gault) 7.9 Glucose Level 149 mg/dL (70-99) Calcium Level 7.9 mg/dL (8.5-10.1) Test 05/26/17 07:09 05/26/17 11:13 05/26/17 16:33 05/26/17 20:17 Glucose (Fingerstick) 102 mg/dL (70-99) 119 mg/dL (70-99) 203 mg/dL (70-99) 57 mg/dL (70-99) Test 05/26/17 20:57 05/27/17 05:55 Glucose (Fingerstick) 77 mg/dL (70-99) White Blood Count 4.6 x10^3/uL (4.0-11.0) Red Blood Count 3.50 x10^6/uL (3.50-5.40) Hemoglobin 11.6 g/dL (12.0-15.5) Hematocrit 33.9 % (36.0-47.0) Mean Corpuscular Volume 97 fL (79-100) Mean Corpuscular Hemoglobin 33 pg (25-35) Mean Corpuscular Hemoglobin Concent 34 g/dL (31-37) Red Cell Distribution Width 15.1 % (11.5-14.5) Platelet Count 126 x10^3/uL (140-400) Sodium Level 142 mmol/L (136-145) Potassium Level 4.7 mmol/L (3.5-5.1) Chloride Level 104 mmol/L (98-107) Carbon Dioxide Level 31 mmol/L (21-32) Anion Gap 7 (6-14) Blood Urea Nitrogen 52 mg/dL (7-20) Creatinine 7.1 mg/dL (0.6-1.0) Estimated GFR (Cockcroft-Gault) 5.7 Glucose Level 115 mg/dL (70-99) Calcium Level 8.1 mg/dL (8.5-10.1) Laboratory Tests Test 05/26/17 11:13 05/26/17 16:33 05/26/17 20:17 05/26/17 20:57 Glucose (Fingerstick) 119 mg/dL (70-99) 203 mg/dL (70-99) 57 mg/dL (70-99) 77 mg/dL (70-99) Test 05/27/17 05:55 White Blood Count 4.6 x10^3/uL (4.0-11.0) Red Blood Count 3.50 x10^6/uL (3.50-5.40) Hemoglobin 11.6 g/dL (12.0-15.5) Hematocrit 33.9 % (36.0-47.0) Mean Corpuscular Volume 97 fL (79-100) Mean Corpuscular Hemoglobin 33 pg (25-35) Mean Corpuscular Hemoglobin Concent 34 g/dL (31-37) Red Cell Distribution Width 15.1 % (11.5-14.5) Platelet Count 126 x10^3/uL (140-400) Sodium Level 142 mmol/L (136-145) Potassium Level 4.7 mmol/L (3.5-5.1) Chloride Level 104 mmol/L (98-107) Carbon Dioxide Level 31 mmol/L (21-32) Anion Gap 7 (6-14) Blood Urea Nitrogen 52 mg/dL (7-20) Creatinine 7.1 mg/dL (0.6-1.0) Estimated GFR (Cockcroft-Gault) 5.7 Glucose Level 115 mg/dL (70-99) Calcium Level 8.1 mg/dL (8.5-10.1) Medications Current Medications Dextrose (Dextrose 50%-Water Syringe) 25 gm 1X ONCE IV Last administered on 10:58; Start 05/25/17 at 11:30; Stop 05/25/17 at 11:31; Status DC Acetaminophen (Tylenol) 650 mg Q6H PRN PO HEADACHE, FEVER; Start 05/25/17 at 12: 15 Amlodipine Besylate (Norvasc) 10 mg DAILY PO Last administered on 05/26/17 09: 01; Start 05/25/17 at 17:00 Aspirin (Children'S Aspirin) 81 mg DAILYWBKFT PO Last administered on 09:02; Start 05/25/17 at 17:00 Cetirizine HCl (ZyrTEC) 10 mg DAILY PO Last administered on 05/26/17 09:03; Start 05/25/17 at 17:00 Clonidine HCl (Catapres) 0.1 mg BID PO Last administered on 05/26/17 09:03; Start 05/25/17 at 21:00 Gabapentin (Neurontin) 200 mg BID PO Last administered on 05/26/17 20:27; Start 05/25/17 at 21:00 Hydralazine HCl (Apresoline) 50 mg TID PO Last administered on 05/26/17 14:39 ; Start 05/25/17 at 21:00 Acetaminophen/ Hydrocodone Bitart (Lortab 7.5/325) 1 tab PRN Q4HRS PRN PO PAIN Last administered on 05/26/17 14:42; Start 05/25/17 at 16:45 Labetalol HCl (Trandate) 400 mg DAILY PO Last administered on 05/26/17 09:02; Start 05/26/17 at 09:00 Losartan Potassium (Cozaar) 100 mg DAILY PO Last administered on 05/26/17 09: 02; Start 05/25/17 at 17:00 Sevelamer Carbonate (Renvela) 1,600 mg [id number] PO Last administered on 05:55; Start 05/25/17 at 18:00 Fluticasone Propionate (Flonase) 2 spray DAILY NS Last administered on 09:01; Start 05/26/17 at 09:00 Pantoprazole Sodium (Protonix) 40 mg DAILYAC PO Last administered on 05/27/17 05:55; Start 05/25/17 at 17:00 Ondansetron HCl (Zofran Odt) 4 mg Q8HRS PO Last administered on 05/27/17 05:55 ; Start 05/25/17 at 17:00 Vitamin B Complex/ Vitamin C (Windy-Abby) 1 tab DAILY PO Last administered on 09:01; Start 05/26/17 at 09:00 Insulin Aspart (NovoLOG) 0-7 UNITS TIDWMEALS SQ Last administered on 05/26/17 17:44; Start 05/25/17 at 17:00 Dextrose (Dextrose 50%-Water Syringe) 12.5 gm PRN Q15MIN PRN IV SEE COMMENTS; Start 05/25/17 at 17:00 Active Scripts Active Novolog Flexpen (Insulin Aspart) 100 Unit/1 Ml Insuln.pen 0 Units SQ TIDWMEALS 30 Days Hydrocodone-Apap 7.5-325 (Hydrocodone Bit/Acetaminophen) 1 Each Tablet 1 Tab PO PRN Q4HRS PRN 10 Days Children's Aspirin (Aspirin) 81 Mg Tab.chew 81 Mg PO DAILYWBKFT 30 Days Zofran (Ondansetron Hcl) 4 Mg Tablet 1 Tab PO Q8HRS Cozaar (Losartan Potassium) 50 Mg Tablet 100 Mg PO DAILY Reported Hydralazine Hcl 50 Mg Tablet 1 Tab PO TID Guaifenesin-Codeine Liquid (Guaifenesin/Codeine Phosphate) 118 Ml Liquid 5 Ml PO PRN Q6HRS PRN Levemir (Insulin Detemir) 100 Unit/1 Ml Vial 7 Unit SQ HS Gabapentin 100 Mg Capsule 200 Mg PO BID Cetirizine Hcl 10 Mg Tablet 1 Tab PO DAILY Thera-M (Multivits,Th W-Fe,Other Min) 1 Each Tablet 1 Each PO DAILY Miralax (Polyethylene Glycol 3350) 17 Gm Powd.pack 1 Packet PO DAILY Colace (Docusate Sodium) 100 Mg Capsule 1 Cap PO DAILY Tylenol (Acetaminophen) 325 Mg Tablet 2 Tab PO PRN Q6HRS PRN Clonidine Hcl 0.1 Mg Tablet 0.1 Mg PO BID Alendronate Sodium 70 Mg Tablet 70 Mg PO WEEKLY Labetalol Hcl 200 Mg Tablet 2 Tab PO DAILY Flonase Allergy Relief (Fluticasone Propionate) 9.9 Ml [place].susp 2 Sprays NS DAILY Calcium 600 + Vit D 400 Caplet (Calcium Carbonate/Vitamin D3) 1 Each Tablet 1 Each PO DAILY Renvela (Sevelamer Carbonate) 800 Mg Tablet 2 Tab PO [id number] Norvasc (Amlodipine Besylate) 10 Mg Tablet 10 Mg PO DAILY Windy-Abby Rx Tablet (Vit B Cmplx 3/Fa/Vit C/Biotin) 1 Each Tablet 1 Each PO DAILY Prilosec (Omeprazole) 20 Mg Capsule.dr 20 Mg PO DAILY Vitals/I & O Vital Sign - Last 24 Hours 05/26/17 05/26/17 05/26/17 05/26/17 09:01 09:02 09:02 09:03 Pulse 70 70 70 70 B/P (MAP) 138/64 138/64 138/64 138/64 05/26/17 05/26/17 05/26/17 05/26/17 09:03 09:03 11:02 14:39 Temp 97.7 97.7 Pulse 70 71 71 Resp 16 B/P (MAP) 138/64 123/48 (73) 123/48 Pulse Ox 90 92 O2 Delivery Room Air Nasal Cannula O2 Flow Rate 2.0 2.0 05/26/17 05/26/17 05/26/17 05/26/17 14:42 14:52 15:52 19:00 Temp 98.0 96.2 98.0 96.2 Pulse 71 55 Resp 16 20 B/P (MAP) 91/45 (60) 104/44 (64) Pulse Ox 92 96 96 96 O2 Delivery Room Air Room Air Room Air Room Air O2 Flow Rate 2.0 2.0 05/26/17 05/26/17 05/26/17 05/26/17 20:00 20:27 20:27 23:00 Pulse 55 55 54 Resp 20 B/P (MAP) 104/44 104/44 120/36 (64) Pulse Ox 97 O2 Delivery Room Air Room Air 05/27/17 05/27/17 03:11 08:02 Temp 95.2 95.2 Pulse 57 67 Resp 20 16 B/P (MAP) 134/56 (82) 141/60 (87) Pulse Ox 95 95 O2 Delivery Room Air Room Air Intake and Output 05/26/17 05/26/17 05/27/17 15:00 23:00 07:00 Intake Total 240 ml 480 ml Output Total 3 ml Balance 237 ml 480 ml ARELI MATIAS MD May 27, 2017 08:31
[2017-05-27] MEDS: FLUTICASONE 50MCG/NASAL SPRAY 16GM BOTTLE. NS SCH (09:39)
[2017-05-27] MEDS: VANCOMYCIN 125 MG/2.5 ML ORAL SOLUTION. PO SCH ×4 (09:39→20:46)
[2017-05-27] MEDS: ASPIRIN CHEWABLE 81 MG TABLET. PO SCH (09:39)
[2017-05-27] MEDS: amLODIPine BESYLATE 10 MG TABLET PO SCH (09:40)
[2017-05-27] MEDS: GABAPENTIN 100 MG CAPSULE. PO SCH ×2 (09:40→20:45)
[2017-05-27] MEDS: FOLIC/VIT B COMP W-C (RENAL) TABLET. PO SCH (09:41)
[2017-05-27] MEDS: cloNIDine HCL 0.1 MG TABLET PO SCH ×2 (09:41→20:45)
[2017-05-27] MEDS: CETIRIZINE HCL 10 MG TABLET. PO SCH (09:41)
[2017-05-27] MEDS: LABETALOL HCL 200 MG TABLET PO SCH (09:41)
[2017-05-27] MEDS: LOSARTAN POTASSIUM 50 MG TABLET. PO SCH (09:42)
--- NOTE | 2017-05-27 10:08 | ACF ---
Admit Criteria Forms Admit Criteria Forms Admit Criteria Forms GASTROENTEROLOGY GRG Clinical Indications for Admission to Inpatient Care (Left Hand/ check or initial the applicable condition/criteria) Hospital admission is needed for appropriate care of the patient because of ANY ONE of the following: I. Suspected acute intra-abdominal process indicated by 1 or more of the following(1)(2)(3)(4)(5): a) Hemodynamic instability b) Peritoneal signs present (eg, abdominal rigidity, rebound tenderness, absent bowel sounds) c) Bowel obstruction suspected (eg, persistent vomiting, abdominal distention )(6)(7)(8) d) Suspected mesenteric ischemia or ischemic colitis(9)(10)(11) e) Other signs or symptoms of acute abdominal disease (eg, severe pain, free air)(12) II. Hemoperitoneum(13)(14) III. Ascites requiring acute treatment indicated by 1 or more of the following ( 15)(16)(17)(18) a) Hemodynamic instability b) Peritoneal signs present (e.g., abdominal rigidity, rebound tenderness, absent bowel sounds) c) Tachypnea, Hypoxemia,or other respiratory symptoms remain after emergency or observation level care (as appropriate) d) Suspected infected ascites as indicated by 1 or more of the following(19) (20) i) Fever ii) Vital sign abnormality iii) Abdominal pain or tenderness not relieved by paracentesis iv) Systemic signs of infection (e.g., elevated WBC count, fever) v) Ascitic fluid analysis consistent with infection ( e.g., elevated WBC count) IV. Severe liver disease indicated by 1 or more of the following (15)(16)(21)(22 )(23)(24)(25)(26)(27)(28) a) Acute hepatitis (e.g., transaminaselevel greater than 1000 IU/L) b) Acute elevation of prothrombintime to more than 50% above normal or INR greater than 1.5 c) Bilirubin greater than 20 mg/dL (342 micromoles/L) d) New-onset or worseninghepatic encephalopathy e) Acute elevation of serum ammonia level (eg, greater than 210 mcg/dL ( 150 micromoles/L)) f) Acute liver necrosis g) Vomiting that is severe of persistent h) Hemodynamic instability due to liver disease i) Acute renal failure j) Hepatic abscess k) Hepatic hydrothorax(29) l) Other indications of severe liver disease (e.g., persistent fever, ingestion of hepatotoxin)(30) V. Dehydration that is severe or persistent (X). Severe diarrhea indicated by 1 or more of the following (31)(32)(33)(34)( 35) : a) High fever or other high-risk infection situation b) Intractable bloody diarrhea (e.g., more than 6 bloody stools per day) (X) c) Suspected etiology (Clostridiumdifficile-associated diarrhea) that requires isolation or care not feasible in outpatient setting (36) d) Altered mental status that is severe or persistent e) Dehydration that is severe or persistent g) Peritoneal signs present (e.g., abdominal rigidity, rebound tenderness , absent bowel sounds) h) Abdominal ischemia suspected (9)(10)(11) i) Hemodynamic instability j) Severe electrolyte abnormalities requiring inpatient care k) Acute renal failure VII. Suspected toxic cem colon(4)(9) VIII. Severe dysphagia indicated by 1 or more of the following(37)(38) a) Suspected esophageal perforation or fistula(39) b) Suspected cause that requires inpatient care (e.g., caustic ingestion , severe esophagitis) (40)(41) c) Dehydration that is severe or persistent d) Inability to manage secretions or maintain hydration e) Hemodynamic instability f) Severe electrolyte abnormalities requiring inpatient care g) Acute renal failure IX. Vomiting and 1 or more of the following (42)(43)(44)(45)(46) a) High fever or other high-risk infection situation b) Altered mental status that is severe or persistent c) Dehydration that is severe or persistent d) Peritoneal signs present (e.g., abdominal rigidity, rebound tenderness, absent bowel sounds) e) Hemodynamic instability f) Severe electrolyte abnormalities requiring inpatient care g) Acute renal failure h) Bowel obstruction suspected (e.g., severe vomiting, abdominal distension) i) Vomiting that is severe or persistent X. Gastroparesis and 1 or more of the following(46)(47)(48)(49): a) Dehydration that is severe or persistent b) Severe electrolyte abnormalities requiring inpatient care c) Acute renal failure d) Vomiting that is severe or persistent XI Obstipation and 1 or more of the following(50)(51)(52)(53) a) Complication of fecal impaction (eg, stercoral ulceration, perforation, venous compression, obstructive uropathy) b) Fecal disimpaction by digital fragmentation or mechanical disimpaction unsuccessful XII Complication of gastrostomy or jejunostomy feeding tube(54)(55)(56) a) Luminal perforation b) Gastrocolonic fistula c) Cellulitis of surrounding area with failure of outpatient treatment d) Necrotizing fasciitis e) Peritonitis f) Gastric herniation or prolapse g) Ischemic necrosis of gastric wall ("buried bumper") h) Other complication of gastrostomy or jejunostomy unable to be resolved at lower level of care XII. Complications of transplanted liver indicated by 1 or more of the following (57)(58)(59): a) Acute graft rejection requiring inpatient management (eg, intravenous immuno suppression)(60)(61) b) Failure of transplanted liver as indicated by 1 or more of the following: i. Acute hepatitis (eg, transaminase level greater than 1000 International Units per liter (IU/L)) ii. Acute elevation of prothrombin time to more than 50% above baseline or INR greater than 1.5 iii. Bilirubin greater than 20 mg/dL (342 micromoles/L) iv. New-onset or worsening hepatic encephalopathy v. Acute elevation of serum ammonia level (eg, greater than 210 mcg/dL (150 micromoles/L)) vi. Acute liver necrosis c) Infection requiring inpatient management (eg, Hemodynamic instability, need for intravenous antimicrobial treatment) (62)(63)(64)(65)(66) d) Other complication of transplanted liver (eg, thrombosis, autoimmune hepatitis, variceal bleeding) requiring inpatient management (67)(68)(69) XII. Complications of transplanted pancreas indicated by 1 or more of the following (70) a) Acute graft rejection requiring inpatient management (eg, intravenous immunosuppression)(60)(71) b) Failure of transplanted pancreas as indicated by 1 or more of the following: i. Serum amylase greater than 3 times the upper limit of normal or baseline ii. Serum lipase greater than 3 times the upper limit of normal or baseline iii. Imaging findings consistent with pancreatic inflammation or necrosis c) Infection requiring inpatient management (eg, Hemodynamic instability, need for intravenous antimicrobial treatment) (64)(65)(66) d) Other complication of transplanted pancreas (eg, graft thrombosis, pancreatic duct stricture, anastomotic leak) requiring inpatient management (72 ) XIII. Gastroenterology condition,Symptom or finding for which emergency and observation care have failed or are not considered appropriate.See General criteria: Observation care, General Admission criteria or Pediatric General Admission criteria guideline as appropriate. The original [facility] content created by [facility] has been revised. The portions of the content which have been revised are identified through the use of italic text or in bold,and [facility] has neither reviewed nor approved the modified material. All other unmodified content is copyright [facility]. Please see references footnoted in the original [facility] edition 2017 JAMAL STEWART May 27, 2017 10:08
[2017-05-27 11:00] VITALS: BP 140/58
--- NOTE | 2017-05-27 11:59 | PDOC ---
Renal-Progress Notes Subjective Notes Notes HAD DIARRHEA ALL NIGHT History of Present Illness Hx of present illness STABLE Vitals Vitals Vital Signs Date Time Temp Pulse Resp B/P (MAP) Pulse Ox O2 Delivery O2 Flow Rate FiO2 05/27/17 11:00 97.9 71 20 140/58 (85) 95 Room Air 97.9 05/26/17 15:52 2.0 Weight Weight [ ] I.O. Intake and Output Intake and Output 05/27/17 07:00 Intake Total 720 ml Output Total 3 ml Balance 717 ml Intake Oral 720 ml Stool Total 3 ml # Bowel Movements 3 Labs Labs Laboratory Tests Test 05/26/17 16:33 05/26/17 20:17 05/26/17 20:57 05/27/17 05:55 Glucose (Fingerstick) 203 mg/dL (70-99) 57 mg/dL (70-99) 77 mg/dL (70-99) White Blood Count 4.6 x10^3/uL (4.0-11.0) Red Blood Count 3.50 x10^6/uL (3.50-5.40) Hemoglobin 11.6 g/dL (12.0-15.5) Hematocrit 33.9 % (36.0-47.0) Mean Corpuscular Volume 97 fL (79-100) Mean Corpuscular Hemoglobin 33 pg (25-35) Mean Corpuscular Hemoglobin Concent 34 g/dL (31-37) Red Cell Distribution Width 15.1 % (11.5-14.5) Platelet Count 126 x10^3/uL (140-400) Sodium Level 142 mmol/L (136-145) Potassium Level 4.7 mmol/L (3.5-5.1) Chloride Level 104 mmol/L (98-107) Carbon Dioxide Level 31 mmol/L (21-32) Anion Gap 7 (6-14) Blood Urea Nitrogen 52 mg/dL (7-20) Creatinine 7.1 mg/dL (0.6-1.0) Estimated GFR (Cockcroft-Gault) 5.7 Glucose Level 115 mg/dL (70-99) Calcium Level 8.1 mg/dL (8.5-10.1) Test 05/27/17 11:32 Glucose (Fingerstick) 132 mg/dL (70-99) Review of Systems Constitutional: yes: weakness, alert, oriented Ears/Nose/Throat: Yes: no symptom reported Eyes: Yes: no symptom reported Pulmonary: Yes no symptom reported Cardiovascular: Yes no symptom reported Gastrointestional: Yes: diarrhea, abdominal pain Genitourinary: Yes: other (ANURIC) Musculoskeletal: Yes: muscle stiffness Skin: Yes no symptom reported Endocrine: Yes: no symptom reported Physical Exam General Appearance: no apparent distress Skin: warm Respiratory: bilateral CTA Heart: S1S2, RRR Abdomen: soft, bowel sounds present Genitourinary: bladder flat Neurology: alert, oriented Musculoskeletal: Osteoarthritis, Other Assessment Assessment IMP DEHYDRATION DIARRHEA-HX OF C DIF ANEMIA DM II HTN ESRD PLAN HD TODAY UF TO DW DAKOTA ARIAS MD May 27, 2017 11:59
[2017-05-27 14:33] VITALS: BP 125/51
[2017-05-27 19:00] VITALS: BP 161/56
[2017-05-27] MEDS: HYDROcodone/APAP 7.5/325MG 1 TAB TABLET PO PRN (20:46)
[2017-05-27 23:00] VITALS: BP 136/54
[2017-05-28 03:26] VITALS: BP 142/58
[2017-05-28] MEDS: SEVELAMER CARBONATE 800 MG TABLET. PO SCH ×3 (05:09→17:46)
[2017-05-28] MEDS: ONDANSETRON ODT 4 MG TAB.RAPDIS. PO SCH ×3 (05:09→21:53)
[2017-05-28] MEDS: HYDROcodone/APAP 7.5/325MG 1 TAB TABLET PO PRN (05:09)
[2017-05-28] MEDS: PANTOPRAZOLE 40 MG TABLET.DR. PO SCH (05:09)
[2017-05-28 07:00] VITALS: BP 145/54
[2017-05-28] MEDS: VANCOMYCIN 125 MG/2.5 ML ORAL SOLUTION. PO SCH ×4 (09:29→21:53)
[2017-05-28] MEDS: FLUTICASONE 50MCG/NASAL SPRAY 16GM BOTTLE. NS SCH (09:29)
[2017-05-28] MEDS: LABETALOL HCL 200 MG TABLET PO SCH (09:30)
[2017-05-28] MEDS: FOLIC/VIT B COMP W-C (RENAL) TABLET. PO SCH (09:30)
[2017-05-28] MEDS: cloNIDine HCL 0.1 MG TABLET PO SCH (09:31)
[2017-05-28] MEDS: LOSARTAN POTASSIUM 50 MG TABLET. PO SCH (09:31)
[2017-05-28] MEDS: ASPIRIN CHEWABLE 81 MG TABLET. PO SCH (09:31)
[2017-05-28] MEDS: GABAPENTIN 100 MG CAPSULE. PO SCH ×2 (09:32→21:53)
[2017-05-28] MEDS: CETIRIZINE HCL 10 MG TABLET. PO SCH (09:32)
[2017-05-28] MEDS: amLODIPine BESYLATE 10 MG TABLET PO SCH (09:32)
[2017-05-28] MEDS: INSULIN ASPART 300 UNITS/3 ML INSULN.PEN SQ SCH ×3 (09:39→17:00)
[2017-05-28 11:00] VITALS: BP 99/52
--- NOTE | 2017-05-28 11:58 | PDOC ---
Renal-Progress Notes Subjective Notes Notes DIARRHEA History of Present Illness Hx of present illness NO CHANGE Vitals Vitals Vital Signs Date Time Temp Pulse Resp B/P (MAP) Pulse Ox O2 Delivery O2 Flow Rate FiO2 05/28/17 09:32 78 145/54 05/28/17 07:00 97.9 18 94 Room Air 97.9 05/28/17 05:09 2.0 Weight Weight [ ] I.O. Intake and Output Intake and Output 05/28/17 06:59 Intake Total 1460 ml Balance 1460 ml Intake Oral 1460 ml # Voids 2 Labs Labs Laboratory Tests Test 05/27/17 20:21 05/28/17 07:26 Glucose (Fingerstick) 162 mg/dL (70-99) 161 mg/dL (70-99) Review of Systems Constitutional: yes: weakness, alert, oriented Ears/Nose/Throat: Yes: no symptom reported Eyes: Yes: no symptom reported Pulmonary: Yes no symptom reported Cardiovascular: Yes no symptom reported Gastrointestional: Yes: diarrhea, abdominal pain Genitourinary: Yes: other (ANURIC) Musculoskeletal: Yes: muscle stiffness Skin: Yes no symptom reported Endocrine: Yes: no symptom reported Physical Exam General Appearance: no apparent distress Skin: warm Respiratory: bilateral CTA Heart: S1S2, RRR Abdomen: soft, bowel sounds present Genitourinary: bladder flat Neurology: alert, oriented Musculoskeletal: Osteoarthritis, Other Assessment Assessment IMP DEHYDRATION DIARRHEA-C DIF ANEMIA DM II HTN ESRD PLAN HD TUESDAY SUPPORTIVE CARE DAKOTA ARIAS MD May 28, 2017 11:58
--- NOTE | 2017-05-28 12:15 | PDOC ---
SUBJECTIVE Subjective Pt says that diarrhea has improved, stool a little more solid. Not feeling very good this morning; lightheaded. Pt's nurse let me know that her BP was in the 140s systolic this morning when she got her BP pills. BP got down into the 90s, starting to come up. OBJECTIVE Vital Signs Vital Signs Date Time Temp Pulse Resp B/P (MAP) Pulse Ox O2 Delivery O2 Flow Rate FiO2 05/28/17 09:32 78 145/54 05/28/17 09:31 78 145/54 05/28/17 09:31 78 145/54 05/28/17 09:31 78 145/54 05/28/17 09:30 78 145/54 05/28/17 07:00 97.9 78 18 145/54 (84) 94 Room Air 97.9 05/28/17 05:09 18 91 Room Air 2.0 05/28/17 03:26 97.9 76 20 142/58 (86) 91 Room Air 97.9 05/27/17 23:00 98.6 85 20 136/54 (81) 95 Room Air 98.6 05/27/17 21:46 18 95 Room Air 2.0 05/27/17 20:46 18 95 Room Air 2.0 05/27/17 20:46 77 161/56 05/27/17 20:45 77 161/56 05/27/17 20:00 Room Air 05/27/17 19:00 97.9 77 20 161/56 (91) 95 Room Air 97.9 05/27/17 14:33 96.4 72 16 125/51 (75) 91 Room Air 96.4 05/27/17 14:00 72 125/51 I & O Intake and Output 05/28/17 07:00 Intake Total 1460 ml Balance 1460 ml Intake Oral 1460 ml # Voids 2 PHYSICAL EXAM Physical Exam GEN: NAD, AOx3, sitting ,eating HEENT: MMM, EOMI, no scleral icterus/injection Cardiac: RRR, no M/R/G Lungs: CTAB Ab: soft, non distended, mild TTP Ext: no erythema/edema LE bilaterally Nuero: CN2-12 GI ASSESSMENT/PLAN Assessment/Plan Pt is a 67yo female admitted for diarrhea 2/2 Cdiff 1. Diarrhea - Cdiff+, with hx of C diff infection. Pt is on po Vanco. 2. ESRD - Renal following, electrolytes stable 3. DM2 - stable, continue SS insulin. 4. HTN - pt with low blood pressure after medication administration. Will hold Clonidine and Norvasc. Continue Labetalol 400mg, Hydralazine 50mg TID and Losartan 100mg 5. OA - stable, continue [facility] as needed. Problems: COMMENT Lab Laboratory Tests Test 05/27/17 20:21 05/28/17 07:26 Glucose (Fingerstick) 162 mg/dL (70-99) 161 mg/dL (70-99) RORY RANDALL MD May 28, 2017 12:15
[2017-05-28] MEDS: SIMETHICONE 80 MG TAB.CHEW PO PRN (14:00)
[2017-05-28 15:36] VITALS: BP 111/48
[2017-05-28 19:00] VITALS: BP 113/42
[2017-05-28 22:51] VITALS: BP 137/48
[2017-05-29 03:00] VITALS: BP 142/43
[2017-05-29] MEDS: SEVELAMER CARBONATE 800 MG TABLET. PO SCH ×3 (05:52→17:49)
[2017-05-29] MEDS: ONDANSETRON ODT 4 MG TAB.RAPDIS. PO SCH ×3 (05:52→21:31)
[2017-05-29] MEDS: PANTOPRAZOLE 40 MG TABLET.DR. PO SCH (05:53)
[2017-05-29 06:00] LABS: CALCIUM 8.5 mg/dL (8.5-10.1); CREATININE 6.4 mg/dL (0.6-1.0); GFR 6.5
[2017-05-29 06:09] LABS: POTASSIUM 5.9 mmol/L (3.5-5.1)
[2017-05-29 07:00] VITALS: BP 163/61
[2017-05-29] MEDS: INSULIN ASPART 300 UNITS/3 ML INSULN.PEN SQ SCH ×3 (08:00→17:00)
[2017-05-29] MEDS: LABETALOL HCL 200 MG TABLET PO SCH (08:54)
[2017-05-29] MEDS: VANCOMYCIN 125 MG/2.5 ML ORAL SOLUTION. PO SCH ×4 (08:54→21:32)
[2017-05-29] MEDS: FOLIC/VIT B COMP W-C (RENAL) TABLET. PO SCH (08:55)
[2017-05-29] MEDS: LOSARTAN POTASSIUM 50 MG TABLET. PO SCH (08:55)
[2017-05-29] MEDS: GABAPENTIN 100 MG CAPSULE. PO SCH ×2 (08:55→21:31)
[2017-05-29] MEDS: CETIRIZINE HCL 10 MG TABLET. PO SCH (08:55)
[2017-05-29] MEDS: ASPIRIN CHEWABLE 81 MG TABLET. PO SCH (08:56)
[2017-05-29] MEDS: SIMETHICONE 80 MG TAB.CHEW PO PRN (08:56)
[2017-05-29] MEDS: FLUTICASONE 50MCG/NASAL SPRAY 16GM BOTTLE. NS SCH (09:00)
--- NOTE | 2017-05-29 10:23 | PDOC ---
SUBJECTIVE Subjective Pt still "feeling weak inside", but has not had a bowel movement since yesterday and abdominal pain has improved. OBJECTIVE Vital Signs Vital Signs Date Time Temp Pulse Resp B/P (MAP) Pulse Ox O2 Delivery O2 Flow Rate FiO2 05/29/17 08:56 78 163/61 05/29/17 08:55 78 163/61 05/29/17 08:54 78 163/61 05/29/17 07:00 97.9 78 16 163/61 (95) 95 Room Air 97.9 05/29/17 03:00 97.9 76 18 142/43 (76) 91 Room Air 97.9 05/28/17 22:51 97.9 71 18 137/48 (77) 92 Room Air 97.9 05/28/17 20:00 Room Air 05/28/17 19:00 97.5 69 18 113/42 (65) 93 Room Air 97.5 05/28/17 15:36 97.9 59 16 111/48 (69) 98 Room Air 97.9 05/28/17 14:00 66 99/52 05/28/17 11:00 97.9 66 18 99/52 (68) 96 Room Air 97.9 I & O Intake and Output 05/29/17 07:00 Intake Total 1850 ml Balance 1850 ml Intake Oral 1850 ml # Voids 4 # Bowel Movements 6 PHYSICAL EXAM Physical Exam GEN: NAD, AOx3, sitting HEENT: MMM, EOMI, no scleral icterus/injection Cardiac: RRR, no M/R/G Lungs: CTAB Ab: soft, non distended, NTTP Ext: no erythema/edema LE bilaterally Nuero: CN2-12 GI ASSESSMENT/PLAN Assessment/Plan Pt is a 67yo female admitted for diarrhea 2/2 Cdiff 1. Diarrhea - Cdiff+, with hx of C diff infection. Pt is on po Vanco. 2. ESRD - Renal following, K elevated this morning, will be getting HD tomorrow 3. DM2 - stable, continue SS insulin. 4. HTN - Held Clonidine and Norvasc yesterday due to hypotension, will resume Norvasc today. Continue Labetalol 400mg, Hydralazine 50mg TID and Losartan 100mg 5. OA - stable, continue [place] as needed. Problems: COMMENT Lab Laboratory Tests Test 05/28/17 11:06 05/28/17 11:47 05/28/17 13:08 05/28/17 16:51 Glucose (Fingerstick) 63 mg/dL (70-99) 64 mg/dL (70-99) 101 mg/dL (70-99) 193 mg/dL (70-99) Test 05/28/17 21:01 05/29/17 05:15 05/29/17 07:50 Glucose (Fingerstick) 150 mg/dL (70-99) 108 mg/dL (70-99) Sodium Level 140 mmol/L (136-145) Potassium Level 5.9 mmol/L (3.5-5.1) Chloride Level 104 mmol/L (98-107) Carbon Dioxide Level 31 mmol/L (21-32) Anion Gap 5 (6-14) Blood Urea Nitrogen 60 mg/dL (7-20) Creatinine 6.4 mg/dL (0.6-1.0) Estimated GFR (Cockcroft-Gault) 6.5 Glucose Level 150 mg/dL (70-99) Calcium Level 8.5 mg/dL (8.5-10.1) RORY RANDALL MD May 29, 2017 10:23
[2017-05-29 11:00] VITALS: BP 152/43
[2017-05-29] MEDS: amLODIPine BESYLATE 10 MG TABLET PO SCH (11:59)
--- NOTE | 2017-05-29 12:00 | PDOC ---
Renal-Progress Notes Subjective Notes Notes FEELING WEAK BUT NO DIARRHEA YET TODAY History of Present Illness Hx of present illness STABLE Vitals Vitals Vital Signs Date Time Temp Pulse Resp B/P (MAP) Pulse Ox O2 Delivery O2 Flow Rate FiO2 05/29/17 08:56 78 163/61 05/29/17 07:00 97.9 16 95 Room Air 97.9 05/28/17 08:00 2.0 Weight Weight [ ] I.O. Intake and Output Intake and Output 05/29/17 07:00 Intake Total 1850 ml Balance 1850 ml Intake Oral 1850 ml # Voids 4 # Bowel Movements 6 Labs Labs Laboratory Tests Test 05/28/17 13:08 05/28/17 16:51 05/28/17 21:01 05/29/17 05:15 Glucose (Fingerstick) 101 mg/dL (70-99) 193 mg/dL (70-99) 150 mg/dL (70-99) Sodium Level 140 mmol/L (136-145) Potassium Level 5.9 mmol/L (3.5-5.1) Chloride Level 104 mmol/L (98-107) Carbon Dioxide Level 31 mmol/L (21-32) Anion Gap 5 (6-14) Blood Urea Nitrogen 60 mg/dL (7-20) Creatinine 6.4 mg/dL (0.6-1.0) Estimated GFR (Cockcroft-Gault) 6.5 Glucose Level 150 mg/dL (70-99) Calcium Level 8.5 mg/dL (8.5-10.1) Test 05/29/17 07:50 05/29/17 11:36 Glucose (Fingerstick) 108 mg/dL (70-99) 176 mg/dL (70-99) Micro Micro Microbiology 05/26/17 Stool Culture - Final, Resulted 05/26/17 Stool Culture Result 1 (LOW) - Final, Resulted 05/26/17 Campylobacter Antigen Assay - Preliminary, Resulted 05/26/17 Campylobactor Result 1 - Preliminary, Resulted 05/26/17 Shiga Toxin Test - Final, Resulted Review of Systems Constitutional: yes: weakness, alert, oriented Ears/Nose/Throat: Yes: no symptom reported Eyes: Yes: no symptom reported Pulmonary: Yes no symptom reported Cardiovascular: Yes no symptom reported Gastrointestional: Yes: diarrhea, abdominal pain Genitourinary: Yes: other (ANURIC) Musculoskeletal: Yes: muscle stiffness Skin: Yes no symptom reported Endocrine: Yes: no symptom reported Physical Exam General Appearance: no apparent distress Skin: warm Respiratory: bilateral CTA Heart: S1S2, RRR Abdomen: soft, bowel sounds present Genitourinary: bladder flat Neurology: alert, oriented Musculoskeletal: Osteoarthritis, Other Assessment Assessment IMP DEHYDRATION DIARRHEA-C DIF ANEMIA DM II HTN ESRD HYPERKALEMIA PLAN HD TOMORROW LOW K DIET SUPPORTIVE CARE DAKOTA ARIAS MD May 29, 2017 12:00
[2017-05-29 15:00] VITALS: BP 113/37
[2017-05-29 19:00] VITALS: BP 108/45
[2017-05-29 22:59] VITALS: BP 122/50
[2017-05-30 03:00] VITALS: BP 147/55
[2017-05-30] MEDS: PANTOPRAZOLE 40 MG TABLET.DR. PO SCH (05:10)
[2017-05-30] MEDS: SEVELAMER CARBONATE 800 MG TABLET. PO SCH ×3 (05:10→17:45)
[2017-05-30] MEDS: ONDANSETRON ODT 4 MG TAB.RAPDIS. PO SCH ×2 (05:11→13:39)
[2017-05-30 06:35] LABS: CALCIUM 8.9 mg/dL (8.5-10.1); CREATININE 8.7 mg/dL (0.6-1.0); GFR 4.5; POTASSIUM 5.7 mmol/L (3.5-5.1)
[2017-05-30 07:00] VITALS: BP 148/57
[2017-05-30] MEDS: INSULIN ASPART 300 UNITS/3 ML INSULN.PEN SQ SCH ×3 (08:00→16:40)
[2017-05-30] MEDS: VANCOMYCIN 125 MG/2.5 ML ORAL SOLUTION. PO SCH ×3 (08:43→16:31)
--- NOTE | 2017-05-30 08:50 | PDOC ---
PROGRESS NOTES Subjective Subjective Patient reports diarrhea has basically resolved. Still feels tired but ready to go home today. Objective Objective Vital Signs Date Time Temp Pulse Resp B/P (MAP) Pulse Ox O2 Delivery O2 Flow Rate FiO2 05/30/17 07:00 97.9 87 20 148/57 (87) 97 Nasal Cannula 2.0 97.9 Intake and Output 05/30/17 07:00 Intake Total 1650 ml Balance 1650 ml Intake Oral 1650 ml # Bowel Movements 2 Physical Exam Abdomen: Normal bowel sounds, Soft, No tenderness Heart: Regular rate Extremities: No edema General: Alert, Oriented X3, No acute distress Lungs: Clear to auscultation Assessment Assessment Problems Medical Problems: (1) Diarrhea Status: Acute (2) Hypoglycemia Status: Acute Plan Plan of Care 1. C difficile colitis - much improved, home today to complete 14 days of po Vancomycin. 2. ESRD - dialysis today on her usual schedule. 3. HTN - BP was a little low yesterday, increased since then, continue her usual meds for this. 4. DM2 - controlled, continue insulins. Patient to resume her usual insulins at home as her po intake gets back to usual for her. 5. OA - chronic pain is stable, continue Pepin prn. 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 Comment Review of Relevant I have reviewed the following items cosmo (where applicable) has been applied. Labs Laboratory Tests Test 05/28/17 11:06 05/28/17 11:47 05/28/17 13:08 05/28/17 16:51 Glucose (Fingerstick) 63 mg/dL (70-99) 64 mg/dL (70-99) 101 mg/dL (70-99) 193 mg/dL (70-99) Test 05/28/17 21:01 05/29/17 05:15 05/29/17 07:50 05/29/17 11:36 Glucose (Fingerstick) 150 mg/dL (70-99) 108 mg/dL (70-99) 176 mg/dL (70-99) Sodium Level 140 mmol/L (136-145) Potassium Level 5.9 mmol/L (3.5-5.1) Chloride Level 104 mmol/L (98-107) Carbon Dioxide Level 31 mmol/L (21-32) Anion Gap 5 (6-14) Blood Urea Nitrogen 60 mg/dL (7-20) Creatinine 6.4 mg/dL (0.6-1.0) Estimated GFR (Cockcroft-Gault) 6.5 Glucose Level 150 mg/dL (70-99) Calcium Level 8.5 mg/dL (8.5-10.1) Test 05/29/17 16:57 05/29/17 21:01 05/30/17 05:01 Glucose (Fingerstick) 128 mg/dL (70-99) 198 mg/dL (70-99) Sodium Level 141 mmol/L (136-145) Potassium Level 5.7 mmol/L (3.5-5.1) Chloride Level 102 mmol/L (98-107) Carbon Dioxide Level 31 mmol/L (21-32) Anion Gap 8 (6-14) Blood Urea Nitrogen 82 mg/dL (7-20) Creatinine 8.7 mg/dL (0.6-1.0) Estimated GFR (Cockcroft-Gault) 4.5 Glucose Level 156 mg/dL (70-99) Calcium Level 8.9 mg/dL (8.5-10.1) Laboratory Tests Test 05/29/17 11:36 05/29/17 16:57 05/29/17 21:01 05/30/17 05:01 Glucose (Fingerstick) 176 mg/dL (70-99) 128 mg/dL (70-99) 198 mg/dL (70-99) Sodium Level 141 mmol/L (136-145) Potassium Level 5.7 mmol/L (3.5-5.1) Chloride Level 102 mmol/L (98-107) Carbon Dioxide Level 31 mmol/L (21-32) Anion Gap 8 (6-14) Blood Urea Nitrogen 82 mg/dL (7-20) Creatinine 8.7 mg/dL (0.6-1.0) Estimated GFR (Cockcroft-Gault) 4.5 Glucose Level 156 mg/dL (70-99) Calcium Level 8.9 mg/dL (8.5-10.1) Microbiology 05/26/17 Stool Culture - Final, Resulted 05/26/17 Stool Culture Result 1 (LOW) - Final, Resulted 05/26/17 Campylobacter Antigen Assay - Preliminary, Resulted 05/26/17 Campylobactor Result 1 - Preliminary, Resulted 05/26/17 Shiga Toxin Test - Final, Resulted Medications Current Medications Dextrose (Dextrose 50%-Water Syringe) 25 gm 1X ONCE IV Last administered on 10:58; Start 05/25/17 at 11:30; Stop 05/25/17 at 11:31; Status DC Acetaminophen (Tylenol) 650 mg Q6H PRN PO HEADACHE, FEVER; Start 05/25/17 at 12: 15 Amlodipine Besylate (Norvasc) 10 mg DAILY PO Last administered on 05/28/17 09: 32; Start 05/25/17 at 17:00; Stop 05/28/17 at 12:12; Status DC Aspirin (Children'S Aspirin) 81 mg [id number] PO Last administered on 08:56; Start 05/25/17 at 17:00 Cetirizine HCl (ZyrTEC) 10 mg DAILY PO Last administered on 05/29/17 08:55; Start 05/25/17 at 17:00 Clonidine HCl (Catapres) 0.1 mg BID PO Last administered on 05/28/17 09:31; Start 05/25/17 at 21:00; Stop 05/28/17 at 12:12; Status DC Gabapentin (Neurontin) 200 mg BID PO Last administered on 05/29/17 21:31; Start 05/25/17 at 21:00 Hydralazine HCl (Apresoline) 50 mg TID PO Last administered on 05/29/17 08:56 ; Start 05/25/17 at 21:00 Acetaminophen/ Hydrocodone Bitart (Lortab 7.5/325) 1 tab PRN Q4HRS PRN PO PAIN Last administered on 05/28/17 05:09; Start 05/25/17 at 16:45 Labetalol HCl (Trandate) 400 mg DAILY PO Last administered on 05/29/17 08:54; Start 05/26/17 at 09:00 Losartan Potassium (Cozaar) 100 mg DAILY PO Last administered on 05/29/17 08: 55; Start 05/25/17 at 17:00 Sevelamer Carbonate (Renvela) 1,600 mg [id number] PO Last administered on 05:10; Start 05/25/17 at 18:00 Fluticasone Propionate (Flonase) 2 spray DAILY NS Last administered on 09:29; Start 05/26/17 at 09:00 Pantoprazole Sodium (Protonix) 40 mg DAILYAC PO Last administered on 05/30/17 05:10; Start 05/25/17 at 17:00 Ondansetron HCl (Zofran Odt) 4 mg Q8HRS PO Last administered on 05/30/17 05:11 ; Start 05/25/17 at 17:00 Vitamin B Complex/ Vitamin C (Windy-Abby) 1 tab DAILY PO Last administered on 08:55; Start 05/26/17 at 09:00 Insulin Aspart (NovoLOG) 0-7 UNITS TIDWMEALS SQ Last administered on 05/29/17 12:07; Start 05/25/17 at 17:00 Dextrose (Dextrose 50%-Water Syringe) 12.5 gm PRN Q15MIN PRN IV SEE COMMENTS; Start 05/25/17 at 17:00 Vancomycin HCl 125 mg [id number] PO Last administered on 05/29/17 21:32; Start at 09:00 Simethicone (Gas-X) 80 mg PRN AFTMEALHC PRN PO GAS / BLOATING Last administered on 05/29/17 08:56; Start 05/28/17 at 12:15 Amlodipine Besylate (Norvasc) 10 mg DAILY PO Last administered on 05/29/17 11: 59; Start 05/29/17 at 10:30 Active Scripts Active Novolog Flexpen (Insulin Aspart) 100 Unit/1 Ml Insuln.pen 0 Units SQ TIDWMEALS 30 Days Hydrocodone-Apap 7.5-325 (Hydrocodone Bit/Acetaminophen) 1 Each Tablet 1 Tab PO PRN Q4HRS PRN 10 Days Children's Aspirin (Aspirin) 81 Mg Tab.chew 81 Mg PO DAILYWBKFT 30 Days Zofran (Ondansetron Hcl) 4 Mg Tablet 1 Tab PO Q8HRS Cozaar (Losartan Potassium) 50 Mg Tablet 100 Mg PO DAILY Reported Hydralazine Hcl 50 Mg Tablet 1 Tab PO TID Guaifenesin-Codeine Liquid (Guaifenesin/Codeine Phosphate) 118 Ml Liquid 5 Ml PO PRN Q6HRS PRN Levemir (Insulin Detemir) 100 Unit/1 Ml Vial 7 Unit SQ HS Gabapentin 100 Mg Capsule 200 Mg PO BID Cetirizine Hcl 10 Mg Tablet 1 Tab PO DAILY Thera-M (Multivits,Th W-Fe,Other Min) 1 Each Tablet 1 Each PO DAILY Miralax (Polyethylene Glycol 3350) 17 Gm Powd.pack 1 Packet PO DAILY Colace (Docusate Sodium) 100 Mg Capsule 1 Cap PO DAILY Tylenol (Acetaminophen) 325 Mg Tablet 2 Tab PO PRN Q6HRS PRN Clonidine Hcl 0.1 Mg Tablet 0.1 Mg PO BID Alendronate Sodium 70 Mg Tablet 70 Mg PO WEEKLY Labetalol Hcl 200 Mg Tablet 2 Tab PO DAILY Flonase Allergy Relief (Fluticasone Propionate) 9.9 Ml [place].susp 2 Sprays NS DAILY Calcium 600 + Vit D 400 Caplet (Calcium Carbonate/Vitamin D3) 1 Each Tablet 1 Each PO DAILY Renvela (Sevelamer Carbonate) 800 Mg Tablet 2 Tab PO [id number] Norvasc (Amlodipine Besylate) 10 Mg Tablet 10 Mg PO DAILY Windy-Abby Rx Tablet (Vit B Cmplx 3/Fa/Vit C/Biotin) 1 Each Tablet 1 Each PO DAILY Prilosec (Omeprazole) 20 Mg Capsule.dr 20 Mg PO DAILY Vitals/I & O Vital Sign - Last 24 Hours 05/29/17 05/29/17 05/29/17 05/29/17 08:54 08:55 08:56 11:00 Temp 97.5 97.5 Pulse 78 78 78 74 Resp 16 B/P (MAP) 163/61 163/61 163/61 152/43 (79) Pulse Ox 96 O2 Delivery Room Air 05/29/17 05/29/17 05/29/17 05/29/17 11:59 13:33 15:00 19:00 Temp 97.7 97.5 97.7 97.5 Pulse 74 70 68 74 Resp 16 16 B/P (MAP) 152/43 109/45 113/37 (62) 108/45 (66) Pulse Ox 92 96 O2 Delivery Room Air Room Air 05/29/17 05/29/17 05/29/17 05/30/17 20:19 21:31 22:59 03:00 Temp 97.5 97.5 97.5 97.5 Pulse 77 76 Resp 16 16 B/P (MAP) 108/45 122/50 (74) 147/55 (85) Pulse Ox 97 93 O2 Delivery Room Air Room Air Room Air 05/30/17 07:00 Temp 97.9 97.9 Pulse 87 Resp 20 B/P (MAP) 148/57 (87) Pulse Ox 97 O2 Delivery Nasal Cannula O2 Flow Rate 2.0 Intake and Output 05/29/17 05/29/17 05/30/17 15:00 23:00 07:00 Intake Total 450 ml 1100 ml 100 ml Balance 450 ml 1100 ml 100 ml ARELI MATIAS MD May 30, 2017 08:50
[2017-05-30] MEDS ORDERED: VANC500V PO (08:54)
[2017-05-30] MEDS: FLUTICASONE 50MCG/NASAL SPRAY 16GM BOTTLE. NS SCH (09:00)
--- NOTE | 2017-05-30 10:37 | DS ---
DATE OF DISCHARGE: 05/30/2017 CHIEF COMPLAINT: Diarrhea and weakness. HISTORY OF PRESENT ILLNESS: The patient is a 67-year-old female who was on dialysis due to end-stage renal disease. She presented to the Emergency Room reporting a several day history of worsening diarrhea. She had been having loose stools for several days. She did not have any emesis, but had decreased appetite and decreased oral intake. She went to her usual dialysis on Tuesday after taking several Imodium at home. She began to feel quite weak and much worse at dialysis. Her treatment was stopped early and she was transferred to the Emergency Room. Initial evaluation there showed her to have a blood sugar of 40. Treatment was started and she was admitted for further care. HOSPITAL COURSE: The patient's hypoglycemia resolved with glucose administration and did not reoccur. She did not have a bowel movement about the first 24 hours following admission but did eventually have diarrhea. Stool studies were done and she was positive for C. difficile colitis. The other stool studies were negative. She was started on oral vancomycin. She has been tolerating this well and her diarrhea has basically resolved. She is taking her diet with a fair appetite and states that she does feel better, although still somewhat weak. The patient's chronic conditions remained stable. She had dialysis on her usual schedule and will have it again today prior to her discharge. Her blood sugars were treated with sliding scale insulin and she will resume her usual insulin regimen at home. She is on several medications for hypertension and her blood pressure was fairly well controlled with these. She has osteoarthritis and takes occasional hydrocodone for this. The patient feels better and will be discharged home today. FINAL DIAGNOSES: 1. Clostridium difficile colitis. 2. End-stage renal disease, on dialysis. 3. Hypertension. 4. Diabetes mellitus type 2, insulin-dependent. 5. Osteoarthritis with chronic pain. DISCHARGE MEDICATIONS: Vancomycin 125 mg p.o. q.i.d. x 11 more days, Tylenol p.r.n., alendronate 70 mg weekly, amlodipine 10 mg daily, aspirin 81 mg daily, calcium with vitamin D daily, Zyrtec 10 mg daily, clonidine 0.1 mg b.i.d., Flonase nasal sprays daily, gabapentin 200 mg b.i.d., hydralazine 50 mg t.i.d., hydrocodone 7.5/325 p.r.n., NovoLog insulin sliding scale with meals, Levemir 7 units at bedtime, labetalol 200 mg 2 tabs daily, losartan 100 mg daily, renal vitamin daily, omeprazole 20 mg daily. FOLLOWUP: Followup is with Dr. Banuelos within 2 weeks. Follow up for dialysis as advised. ARELI BANUELOS MD DR: EVONNE/ronaldo JOB#: [id number] / [id number] [facility]
[2017-05-30] MEDS ORDERED: IV NORMAL SALINE 1000ML BAG 1,000 ML IV PRN (10:54)
[2017-05-30] MEDS ORDERED: DIALYSIS PATIENT. MC PRN ×2 (11:00)
--- NOTE | 2017-05-30 12:10 | PDOC ---
Dialysis Progress Note Dialysis Note Dialysis Note Seen on Hemodialysis, tolerating treatment Well Vitals on Hemodialysis: 116/50 79 afeb General Appearance: Awake: Alert Oriented x 3 Neck: No JVD or JVP Chest: CTA [place] Heart: S1 S2 Abdomen - Soft NTND Extremities - No Edema\ ESRD : Dialysis as below F 180 NR 3.0 Hrs 2 K 2.5 Ca 140 Na 35 HC03 Qb 350 + Qd 500+ Heparin 0 Units Uf 2.2 Kgs or to dry weight as tolerated May give 25-50 gms of 25% Albumin if needed to maintain Hemodynamic stability Treatment plan reviewed and discussed with steno typist Vitals Vital Signs Vital Signs Date Time Temp Pulse Resp B/P (MAP) Pulse Ox O2 Delivery O2 Flow Rate FiO2 05/30/17 08:00 Room Air 2.0 05/30/17 07:00 97.9 87 20 148/57 (87) 97 97.9 Labs Last Labs Laboratory Tests Test 05/28/17 13:08 05/28/17 16:51 05/28/17 21:01 05/29/17 05:15 Glucose (Fingerstick) 101 mg/dL (70-99) 193 mg/dL (70-99) 150 mg/dL (70-99) Sodium Level 140 mmol/L (136-145) Potassium Level 5.9 mmol/L (3.5-5.1) Chloride Level 104 mmol/L (98-107) Carbon Dioxide Level 31 mmol/L (21-32) Anion Gap 5 (6-14) Blood Urea Nitrogen 60 mg/dL (7-20) Creatinine 6.4 mg/dL (0.6-1.0) Estimated GFR (Cockcroft-Gault) 6.5 Glucose Level 150 mg/dL (70-99) Calcium Level 8.5 mg/dL (8.5-10.1) Test 05/29/17 07:50 05/29/17 11:36 05/29/17 16:57 05/29/17 21:01 Glucose (Fingerstick) 108 mg/dL (70-99) 176 mg/dL (70-99) 128 mg/dL (70-99) 198 mg/dL (70-99) Test 05/30/17 05:01 05/30/17 07:28 Sodium Level 141 mmol/L (136-145) Potassium Level 5.7 mmol/L (3.5-5.1) Chloride Level 102 mmol/L (98-107) Carbon Dioxide Level 31 mmol/L (21-32) Anion Gap 8 (6-14) Blood Urea Nitrogen 82 mg/dL (7-20) Creatinine 8.7 mg/dL (0.6-1.0) Estimated GFR (Cockcroft-Gault) 4.5 Glucose Level 156 mg/dL (70-99) Calcium Level 8.9 mg/dL (8.5-10.1) Glucose (Fingerstick) 142 mg/dL (70-99) Laboratory Tests Test 05/29/17 16:57 05/29/17 21:01 05/30/17 05:01 05/30/17 07:28 Glucose (Fingerstick) 128 mg/dL (70-99) 198 mg/dL (70-99) 142 mg/dL (70-99) Sodium Level 141 mmol/L (136-145) Potassium Level 5.7 mmol/L (3.5-5.1) Chloride Level 102 mmol/L (98-107) Carbon Dioxide Level 31 mmol/L (21-32) Anion Gap 8 (6-14) Blood Urea Nitrogen 82 mg/dL (7-20) Creatinine 8.7 mg/dL (0.6-1.0) Estimated GFR (Cockcroft-Gault) 4.5 Glucose Level 156 mg/dL (70-99) Calcium Level 8.9 mg/dL (8.5-10.1) Assessment Assessment Problems Medical Problems: (1) Diarrhea Status: Acute (2) Hypoglycemia Status: Acute Problems: Plan Plan of Care Problems Medical Problems: (1) Diarrhea Status: Acute (2) Hypoglycemia Status: Acute GÓMEZ REAVES MD May 30, 2017 12:10
[2017-05-30] MEDS: GABAPENTIN 100 MG CAPSULE. PO SCH (13:39)
[2017-05-30] MEDS: LABETALOL HCL 200 MG TABLET PO SCH (13:40)
[2017-05-30] MEDS: LOSARTAN POTASSIUM 50 MG TABLET. PO SCH (13:40)
[2017-05-30] MEDS: ASPIRIN CHEWABLE 81 MG TABLET. PO SCH (13:41)
[2017-05-30] MEDS: amLODIPine BESYLATE 10 MG TABLET PO SCH (13:41)
[2017-05-30] MEDS: FOLIC/VIT B COMP W-C (RENAL) TABLET. PO SCH (13:41)
[2017-05-30] MEDS: CETIRIZINE HCL 10 MG TABLET. PO SCH (13:45)
[2017-05-30 15:00] VITALS: BP 159/57
== END 2017-05-30 18:05 | disposition home or self-care (01) | DRG 371 ==
LOC: ER 10:17 → 5 SOUTH 11:53 → INTOOBSV 11:53 → 5 SOUTH 12:35 → OBSVTOIN 05-27 08:53
PROVIDERS: ADMIT Family Medicine; ATTEND Family Medicine
PROC: 5A1D00Z (ICD-10-PCS; principal; 2017-05-30)
DX: A04.7 Enterocolitis due to Clostridium difficile (principal); N18.6 End stage renal disease; I13.2 Hypertensive heart and chronic kidney disease with heart failure and with stage 5 chronic kidney disease, or end stage renal disease; E11.22 Type 2 diabetes mellitus with diabetic chronic kidney disease; E11.649 Type 2 diabetes mellitus with hypoglycemia without coma; D64.9 Anemia, unspecified; E78.5 Hyperlipidemia, unspecified; E86.0 Dehydration; E87.5 Hyperkalemia; G89.29 Other chronic pain; I50.9 Heart failure, unspecified; I25.10 Atherosclerotic heart disease of native coronary artery without angina pectoris; K21.9 Gastro-esophageal reflux disease without esophagitis; E21.3 Hyperparathyroidism, unspecified; F32.9 Major depressive disorder, single episode, unspecified; E11.42 Type 2 diabetes mellitus with diabetic polyneuropathy; I95.9 Hypotension, unspecified; R63.0 Anorexia; M19.90 Unspecified osteoarthritis, unspecified site; M81.0 Age-related osteoporosis without current pathological fracture; Z79.4 Long term (current) use of insulin; Z82.3 Family history of stroke; Z82.49 Family history of ischemic heart disease and other diseases of the circulatory system; Z83.3 Family history of diabetes mellitus; Z86.19 Personal history of other infectious and parasitic diseases; Z86.73 Personal history of transient ischemic attack (TIA), and cerebral infarction without residual deficits; Z99.2 Dependence on renal dialysis; Z87.01 Personal history of pneumonia (recurrent); Z87.440 Personal history of urinary (tract) infections; Z68.26 Body mass index [BMI] 26.0-26.9, adult; Z98.51 Tubal ligation status; Z90.49 Acquired absence of other specified parts of digestive tract; Z90.710 Acquired absence of both cervix and uterus
CPT/HCPCS: 36415; 80048; 80053; 82962; 84484; 85027; 87045; 87324; G0378; G0379; J1815; J7042; Q0162

== ENCOUNTER 2017-07-04 12:49 | Inpatient (IN) | payer OTHER ==
[~2017-07-04] VITALS: Ht 157.5 cm; Wt 69.4 kg
[~2017-07-04 12:49] MED LIST changes: -GUAI-107 PO; +GUAI-108 PO; +VANC500V PO
[2017-07-04 13:45] LABS: BASO # 0.1 x10^3/uL (0.0-0.2); BASO % 0 % (0-3); EOS % 0 % (0-3); HEMATOCRIT 36.9 % (36.0-47.0); LYMPH # 0.6 x10^3/uL (1.0-4.8); LYMPH % 3 % (24-48); MEAN CORPUSCULAR HEMOGLOBIN 32 pg (25-35); MEAN CORPUSCULAR HGB CONC 33 g/dL (31-37); MEAN CORPUSCULAR VOLUME 99 fL (79-100); MONO % 5 % (0-9); NEUT % 92 % (31-73); PLATELET COUNT 141 x10^3/uL (140-400); RED BLOOD COUNT 3.74 x10^6/uL (3.50-5.40); WHITE BLOOD COUNT 21.6 x10^3/uL (4.0-11.0)
[2017-07-04] MEDS ORDERED: ONDANSETRON PF 4 MG/2 ML VIAL. IV ONE (13:45)
[2017-07-04] MEDS ORDERED: IV NORMAL SALINE 500ML BAG 250 ML IV ONE (13:45)
--- NOTE | 2017-07-04 13:50 | EKG ---
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
[2017-07-04 13:52] LABS: CALCIUM 7.8 mg/dL (8.5-10.1); CREATININE 5.2 mg/dL (0.6-1.0); GFR 8.2; POTASSIUM 4.5 mmol/L (3.5-5.1)
[2017-07-04 13:58] LABS: ALBUMIN 3.5 g/dL (3.4-5.0); ALBUMIN/GLOBULIN RATIO 0.9 (1.0-1.7); TOTAL BILIRUBIN 1.3 mg/dL (0.2-1.0); TOTAL PROTEIN 7.4 g/dL (6.4-8.2)
--- NOTE | 2017-07-04 14:37 | RAD ---
Indication generalized abdominal pain. Axial images through the abdomen and pelvis were obtained. No IV or gastrointestinal contrast was administered. Is made of a previous examination 12/24/2012. There is an infiltrate in the right lower lobe highly suspect for pneumonia. There is some minimal volume loss at the left lung base compatible with atelectasis or scar. Pneumonia at the left lung base is felt less likely but cannot be entirely excluded. A pleural calcification involving the left hemidiaphragm is noted. Coronary artery calcification is noted. There is a tiny periumbilical hernia containing only fat and appearing uncomplicated. The liver and spleen appear unremarkable. Clips are seen in the gallbladder fossa. The kidneys are small. Small cysts are identified associated with the kidneys. No adrenal pathology is seen. The pancreas appears unremarkable. An acute finding in the abdomen is not seen. In the pelvis no focal mass or inflammatory process is seen. There are degenerative changes in the lumbar spine likely with a component of spinal stenosis. There is marked compression involving L1 having a chronic appearance and similar to a study 12/24/2012 IMPRESSION: No acute or significant finding seen in the abdomen or pelvis. Infiltrate in the right lower lobe compatible with pneumonia. Small kidneys. Musculoskeletal changes, chronic. PQRS Compliance Statement: One or more of the following individualized dose reduction techniques were utilized for this examination: 1. Automated exposure control 2. Adjustment of the mA and/or kV according to patient size 3. Use of iterative reconstruction technique
[2017-07-04 14:47] LABS: PLT ESTIMATE ADEQUATE (ADEQUATE)
[2017-07-04] MEDS ORDERED: fentaNYL PF VIAL 100 MCG/2 ML VIAL IV PRN (15:00)
[2017-07-04] MEDS ORDERED: PIP/TAZO PER PHARMACY MC PRN (15:00)
[2017-07-04] MEDS ORDERED: ACETAMINOPHEN 325 MG TABLET. PO PRN ×2 (15:00→20:15)
[2017-07-04] MEDS ORDERED: ONDANSETRON PF 4 MG/2 ML VIAL. IV PRN (15:00)
[2017-07-04] MEDS ORDERED: levOFLOXacin PER PHARMACY. MC PRN (15:00)
[2017-07-04] MEDS ORDERED: PIPERACILLIN/TAZOBACTAM 2.25 GM in IV NORMAL SALINE 50ML 50 ML IV ONE (15:15)
[2017-07-04] MEDS ORDERED: VANCOMYCIN 1.5 GM in IV NORMAL SALINE 500ML BAG 500 ML IV ONE (15:15)
--- NOTE | 2017-07-04 15:16 | PHYS DOC ---
Past Medical History Past Medical History: Bronchitis, Diabetes-Type II, Hypertension, Renal Failure , Other Additional Past Medical Histor: c diff , drop foot syndrome LEFT, DIALYSIS Past Surgical History: , Tonsillectomy, Tubal ligation, Other Additional Past Surgical Histo: bilateral rotator cuff; dialysis shunt left forearm Alcohol Use: None Drug Use: None Adult General Chief Complaint Chief Complaint: NAUSEA/VOMITING/DIARRHA HPI HPI Patient is a 67 year old female who presents with abdominal pain & diarrhea. She reports onset of symptoms yesterday, reports generalized abdominal pain with many episodes of loose stools. She feels nauseated but denies vomiting. Denies fevers/chills, hematochezia/melena, dysuria/hematuria. She reports body aches, denies chest pain or shortness of breath. She has ESRD on HD, states she attended regular MWF dialysis today & completed session but now feels worse. She reports history of & tubal ligation. PCP is Dr. Banuelos. Review of Systems Review of Systems Constitutional: Denies fever or chills Eyes: Denies change in visual acuity HENT: Denies nasal congestion or sore throat Respiratory: Denies cough or shortness of breath Cardiovascular: Denies chest pain or edema GI: Reports abdominal pain, nausea, & diarrhea. Denies vomiting, bloody stools : Denies dysuria or hematuria Musculoskeletal: Reports myalgias. Integument: Denies rash or skin lesions Neurologic: Denies headache, focal weakness or sensory changes Current Medications Current Medications Current Medications Medications (Trade) Dose Ordered Sig/Bill Start Time Stop Time Status Last Admin Dose Admin Acetaminophen (Tylenol) 650 mg PRN Q4HRS PRN 07/04/17 15:00 07/05/17 14:59 Fentanyl Citrate (Fentanyl 2ml Vial) 25 mcg PRN Q2HR PRN 07/04/17 15:00 07/05/17 14:59 Levofloxacin/ Dextrose 150 ml @ 100 mls/hr 1X ONCE 07/04/17 15:15 07/04/17 16:44 DC 07/04/17 20:47 100 MLS/HR Levofloxacin/ Dextrose (Levaquin Per Pharmacy) 1 each PRN DAILY PRN 07/04/17 15:00 Ondansetron HCl (Zofran) 4 mg PRN Q8HRS PRN 07/04/17 15:00 07/05/17 14:59 Piperacillin Sod/ Tazobactam Sod (Zosyn Per Pharmacy) 1 each PRN DAILY PRN 07/04/17 15:00 07/04/17 16:08 DC Piperacillin Sod/ Tazobactam Sod 2.25 gm/Sodium Chloride 50 ml @ 100 mls/hr 1X ONCE 07/04/17 15:15 07/04/17 15:44 DC 07/04/17 15:22 100 MLS/HR Sodium Chloride 250 ml @ 0 mls/hr 1X ONCE 07/04/17 13:45 07/04/17 13:46 DC 07/04/17 13:49 0 MLS/HR Vancomycin HCl (Vanco Per Pharmacy) 1 each PRN DAILY PRN 07/04/17 15:00 07/04/17 17:13 1 EACH Vancomycin HCl 1.5 gm/Sodium Chloride 500 ml @ 250 mls/hr 1X ONCE 07/04/17 15:15 07/04/17 17:14 DC 07/04/17 17:53 250 MLS/HR Allergies Allergies Allergies Coded Allergies Type Severity Reaction Last Updated Verified No Known Drug Allergies 11/01/16 No Physical Exam Physical Exam Constitutional: Well developed, well nourished, appears weak & fatigued HENT: Normocephalic, atraumatic, bilateral external ears normal, oropharynx dry , nose normal. Eyes: conjunctiva normal, no discharge. Neck: supple, no stridor. Cardiovascular: RRR, no murmurs, no edema. Lungs & Thorax: LCTAB, no wheezing, no respiratory distress. Abdomen: soft, diffuse abdominal tenderness without focal RUQ or RLQ tenderness , no rebound/guarding, no masses or pulsatile masses, nondistended. Skin: Warm, dry, no erythema, no rash. Back: No CVA tenderness. Extremities: No tenderness, no edema. Neurologic: Alert and oriented X 3, no focal deficits noted. Psychologic: flat affect Current Patient Data Vital Signs Vital Signs Date Time Temp Pulse Resp B/P (MAP) Pulse Ox O2 Delivery O2 Flow Rate FiO2 07/04/17 15:25 95 18 137/63 (87) 96 Nasal Cannula 2.0 07/04/17 13:14 99.5 99.5 Lab Values Laboratory Tests Test 07/04/17 13:25 White Blood Count 21.6 x10^3/uL (4.0-11.0) H Red Blood Count 3.74 x10^6/uL (3.50-5.40) Hemoglobin 12.0 g/dL (12.0-15.5) Hematocrit 36.9 % (36.0-47.0) Mean Corpuscular Volume 99 fL (79-100) Mean Corpuscular Hemoglobin 32 pg (25-35) Mean Corpuscular Hemoglobin Concent 33 g/dL (31-37) Red Cell Distribution Width 15.0 % (11.5-14.5) H Platelet Count 141 x10^3/uL (140-400) Neutrophils (%) (Auto) 92 % (31-73) H Lymphocytes (%) (Auto) 3 % (24-48) L Monocytes (%) (Auto) 5 % (0-9) Eosinophils (%) (Auto) 0 % (0-3) Basophils (%) (Auto) 0 % (0-3) Neutrophils # (Auto) 19.8 x10^3uL (1.8-7.7) H Lymphocytes # (Auto) 0.6 x10^3/uL (1.0-4.8) L Monocytes # (Auto) 1.1 x10^3/uL (0.0-1.1) Eosinophils # (Auto) 0.0 x10^3/uL (0.0-0.7) Basophils # (Auto) 0.1 x10^3/uL (0.0-0.2) Segmented Neutrophils % 74 % (35-66) H Band Neutrophils % 19 % (0-9) H Lymphocytes % 2 % (24-48) L Monocytes % 5 % (0-10) Platelet Estimate Adequate (ADEQUATE) Sodium Level 142 mmol/L (136-145) Potassium Level 4.5 mmol/L (3.5-5.1) Chloride Level 99 mmol/L (98-107) Carbon Dioxide Level 29 mmol/L (21-32) Anion Gap 14 (6-14) Blood Urea Nitrogen 27 mg/dL (7-20) H Creatinine 5.2 mg/dL (0.6-1.0) H Estimated GFR (Cockcroft-Gault) 8.2 BUN/Creatinine Ratio 5 (6-20) L Glucose Level 123 mg/dL (70-99) H Calcium Level 7.8 mg/dL (8.5-10.1) L Total Bilirubin 1.3 mg/dL (0.2-1.0) H Aspartate Amino Transferase (AST) 33 U/L (15-37) Alanine Aminotransferase (ALT) 37 U/L (14-59) Alkaline Phosphatase 766 U/L (46-116) H Troponin I Quantitative < 0.017 ng/mL (0.000-0.055) Total Protein 7.4 g/dL (6.4-8.2) Albumin 3.5 g/dL (3.4-5.0) Albumin/Globulin Ratio 0.9 (1.0-1.7) L Lipase 77 U/L (73-393) Laboratory Tests 07/04/17 13:25 Laboratory Tests 07/04/17 13:25 EKG EKG Interpreted by me: Normal sinus rhythm rate 99, no acute ST or T wave changes, normal intervals, no ectopy, some artifact is present[] Radiology/Procedures Radiology/Procedures PROCEDURE: CT ABDOMEN PELVIS WO CONTRAST Indication generalized abdominal pain. Axial images through the abdomen and pelvis were obtained. No IV or gastrointestinal contrast was administered. Is made of a previous examination 12/24/2012. There is an infiltrate in the right lower lobe highly suspect for pneumonia. There is some minimal volume loss at the left lung base compatible with atelectasis or scar. Pneumonia at the left lung base is felt less likely but cannot be entirely excluded. A pleural calcification involving the left hemidiaphragm is noted. Coronary artery calcification is noted. There is a tiny periumbilical hernia containing only fat and appearing uncomplicated. The liver and spleen appear unremarkable. Clips are seen in the gallbladder fossa. The kidneys are small. Small cysts are identified associated with the kidneys. No adrenal pathology is seen. The pancreas appears unremarkable. An acute finding in the abdomen is not seen. In the pelvis no focal mass or inflammatory process is seen. There are degenerative changes in the lumbar spine likely with a component of spinal stenosis. There is marked compression involving L1 having a chronic appearance and similar to a study 12/24/2012 IMPRESSION: No acute or significant finding seen in the abdomen or pelvis. Infiltrate in the right lower lobe compatible with pneumonia. Small kidneys. Musculoskeletal changes, chronic. PQRS Compliance Statement: One or more of the following individualized dose reduction techniques were utilized for this examination: 1. Automated exposure control 2. Adjustment of the mA and/or kV according to patient size 3. Use of iterative reconstruction technique DICTATED and SIGNED BY: JESSICA BLACK MD DATE: 07/04/17 1426[] Course & Med Decision Making Course & Med Decision Making Pertinent Labs and Imaging studies reviewed. (See chart for details) The patient presents with diarrhea & weakness/myalgias. Hemodynamically stable but appears dehydrated. Will give small fluid bolus & zofran. Obtained labs & CT. No serious acute finding identified to explain her abdominal pain but CT shows RLL infiltrate consistent with healthcare associated pneumonia. Will obtain CXR & admit for antibiotics & further treatment. Discussed with patient who agrees with plan of care, discussed with Dr. byrd on behalf of Dr. Banuelos & he agrees that she will admit to inpatient status. Consult to nephrology Dr. Velasquez. The patient is being admitted in stable condition. Dragon Disclaimer Dragon Disclaimer This electronic medical record was generated, in whole or in part, using a voice recognition dictation system. Departure Departure Impression: Primary Impression: Healthcare-associated pneumonia Additional Impression: Abdominal pain Disposition: ADMITTED INPATIENT Admitting Physician: Nicolasa Banuelos Condition: STABLE Problem Qualifiers JOCELYN DELGADO MD Jul 04, 2017 15:16
--- NOTE | 2017-07-04 15:17 | RAD ---
Portable chest, 07/04/2017: History: Nausea, vomiting, diarrhea, shortness of breath Comparison is made to a study from 06/15/2017. The heart is within normal limits in size. There are mild patchy perihilar and basilar infiltrates, greatest in the right lower chest. The underlying pulmonary vascularity is somewhat poorly defined. No pleural fluid is seen. There is mild chronic elevation of the right hemidiaphragm. IMPRESSION: Mild bilateral pulmonary infiltrates compatible with pneumonia and/or pulmonary edema, most prominent in the right base.
[2017-07-04 16:40] VITALS: BP 124/40
[2017-07-04] MEDS: VANCOMYCIN PER PHARMACY MC PRN (17:13)
[2017-07-04 19:00] VITALS: BP 140/52
[2017-07-04] MEDS: SEVELAMER CARBONATE 800 MG TABLET. PO SCH (20:47)
[2017-07-04] MEDS: GABAPENTIN 100 MG CAPSULE. PO SCH (20:47)
[2017-07-04] MEDS: cloNIDine HCL 0.1 MG TABLET PO SCH (20:48)
[2017-07-04] MEDS: INSULIN ASPART 300 UNITS/3 ML INSULN.PEN SQ SCH (20:53)
[2017-07-04] MEDS: INSULIN DETEMIR 300 UNITS/3 ML INSULN.PEN. SQ SCH (20:53)
[2017-07-04] MEDS ORDERED: ONDA4TAB10 SL (20:56)
[2017-07-04] MEDS ORDERED: INSULIN ASPART 300 UNITS/3 ML INSULN.PEN SQ SCH (21:00)
[2017-07-04] MEDS ORDERED: ONDANSETRON ODT 4 MG TAB.RAPDIS. PO SCH (22:00)
--- NOTE | 2017-07-04 22:15 | HP ---
ADMIT DATE: 07/04/2017 CHIEF COMPLAINT: Nausea, vomiting and back pain. HISTORY OF PRESENT ILLNESS AND HOSPITAL COURSE: This patient is a 67-year-old female with history of end-stage renal disease, on dialysis. She has been in her usual state of health and began feeling achy and weak all over during dialysis and was sent to the Emergency Room. The patient is a poor historian and states that she has been ill for several weeks but most recently became increasingly weak during dialysis today and therefore extent of illness is difficulty to determine. During ER evaluation, she was evaluated for nausea, vomiting, abdominal pain but CAT scan revealed right lower lobe pneumonia and was confirmed with chest x-ray with possible evidence of mild congestive heart failure. Due to these symptoms, she was admitted for health care acquired pneumonia. The patient did have elevated white count but was alert and able to give appropriate answers to questions. PAST MEDICAL HISTORY INCLUDE: 1. End-stage renal disease. 2. Hypertension. 3. High cholesterol. 4. Type 2 diabetes. 5. Diabetic neuropathy. 6. Diabetic retinopathy. 7. Lumbar spinal stenosis. 8. Osteoporosis. 9. Drop foot. PAST SURGICAL HISTORY: Significant for , tonsillectomy, tubal ligation, AV fistula, bilateral rotator cuff repair, hysterectomy. FAMILY HISTORY: Significant for mother who with liver cirrhosis due to hepatitis and father who of CVA at 57 as well as complications of diabetes. SOCIAL HISTORY: The patient does not smoke. She does not use alcohol. She lives with her daughter and multiple other family members in the home. ALLERGIES: The patient exhibits allergies to MORPHINE which causes nausea as well as CODEINE, which causes nausea. REVIEW OF SYSTEMS: Negative except for extreme weakness. She denies any cough, fever or chills but does have generalized aches, pains and weakness. She also has had ongoing episodes of diarrhea. PHYSICAL EXAMINATION: GENERAL: This is a well-nourished female in no apparent distress. She is alert and oriented. HEENT: Benign. NECK: Supple, without JVD or bruit. CARDIOVASCULAR: Regular rate and rhythm. LUNGS: Clear except for decreased breath sounds in the right base. ABDOMEN: Soft, nontender. EXTREMITIES: There are 2+ pulses without significant edema. NEUROLOGIC: Showed no unilateral findings. ASSESSMENT: 1. Bilateral lower lobe pneumonia, greater on the right. 2. End-stage renal disease. 3. Type 2 diabetes. PLAN: To proceed with IV antibiotics, continue renal care and pulmonary toilet as needed. MARQUITA ELLIS MD DR: WAQAR/ronaldo JOB#: [id number] / [id number]
[2017-07-04] MEDS: PIPERACILLIN/TAZOBACTAM 2.25 GM in IV NORMAL SALINE 50ML 50 ML IV SCH (22:22)
[2017-07-04 23:00] VITALS: BP 107/49
[2017-07-05 03:00] VITALS: BP 97/44
[2017-07-05] MEDS: HYDROcodone/APAP 7.5/325MG 1 TAB TABLET PO PRN ×2 (03:05→08:42)
[2017-07-05 05:27] LABS: BASO % 0 % (0-3); EOS % 1 % (0-3); HEMATOCRIT 29.4 % (36.0-47.0); LYMPH # 1.7 x10^3/uL (1.0-4.8); LYMPH % 10 % (24-48); MEAN CORPUSCULAR HEMOGLOBIN 33 pg (25-35); MEAN CORPUSCULAR HGB CONC 34 g/dL (31-37); MEAN CORPUSCULAR VOLUME 97 fL (79-100); MONO % 6 % (0-9); NEUT % 84 % (31-73); PLATELET COUNT 117 x10^3/uL (140-400); RED BLOOD COUNT 3.02 x10^6/uL (3.50-5.40); WHITE BLOOD COUNT 17.4 x10^3/uL (4.0-11.0)
[2017-07-05] MEDS: PIPERACILLIN/TAZOBACTAM 2.25 GM in IV NORMAL SALINE 50ML 50 ML IV SCH ×3 (05:33→20:42)
[2017-07-05 05:34] LABS: ALBUMIN 2.4 g/dL (3.4-5.0); ALBUMIN/GLOBULIN RATIO 0.6 (1.0-1.7); CALCIUM 6.9 mg/dL (8.5-10.1); CREATININE 6.1 mg/dL (0.6-1.0); GFR 6.8; POTASSIUM 4.8 mmol/L (3.5-5.1); TOTAL PROTEIN 6.3 g/dL (6.4-8.2)
[2017-07-05 07:10] VITALS: BP 109/51
[2017-07-05] MEDS: INSULIN ASPART 300 UNITS/3 ML INSULN.PEN SQ SCH ×4 (07:30→20:43)
[2017-07-05] MEDS: FOLIC/VIT B COMP W-C (RENAL) TABLET. PO SCH (08:42)
[2017-07-05] MEDS: CETIRIZINE HCL 10 MG TABLET. PO SCH (08:45)
[2017-07-05] MEDS: LABETALOL HCL 200 MG TABLET PO SCH (08:45)
[2017-07-05] MEDS: ASPIRIN CHEWABLE 81 MG TABLET. PO SCH (08:45)
[2017-07-05] MEDS: SEVELAMER CARBONATE 800 MG TABLET. PO SCH (08:45)
[2017-07-05] MEDS: PANTOPRAZOLE 40 MG TABLET.DR. PO SCH (08:46)
[2017-07-05] MEDS: cloNIDine HCL 0.1 MG TABLET PO SCH ×2 (08:46→20:41)
[2017-07-05] MEDS: GABAPENTIN 100 MG CAPSULE. PO SCH ×2 (08:47→20:41)
[2017-07-05] MEDS: MULTIVITAMIN with MINERAL TABLET. PO SCH (08:47)
[2017-07-05] MEDS: amLODIPine BESYLATE 10 MG TABLET PO SCH (08:47)
[2017-07-05] MEDS: FLUTICASONE 50MCG/NASAL SPRAY 16GM BOTTLE. NS SCH (08:48)
[2017-07-05] MEDS: POLYETHYLENE GLYCOL 3350 17 GM PACKET. PO SCH (08:48)
[2017-07-05] MEDS: LOSARTAN POTASSIUM 50 MG TABLET. PO SCH (08:49)
[2017-07-05] MEDS: DOCUSATE SODIUM 100 MG CAPSULE. PO SCH (08:49)
[2017-07-05 11:07] VITALS: BP 100/44
--- NOTE | 2017-07-05 11:09 | PDOC2 ---
CONSULT Date of Consult Date of Consult DATE: 07/05/17 TIME: 11:01 Reason for Consult Reason for Consult: ESRD Referring Physician Referring Physician: Dr Nunez Identification/Chief Complaint Chief Complaint NVD, SOb - fever Problems: Source Source: Chart review History of Present Illness Reason for Visit: as dictated Past Medical History Cardiovascular: CAD, CHF, HTN, Hyperlipidemia Pulmonary: No pertinent hx, Pneumonia CENTRAL NERVOUS SYSTEM: Periperal neuropathy, TIA GI: GERD Heme/Onc: Anemia NOS Hepatobiliary: Cholelithiasis Psych: Depression Musculoskeletal: Osteoarthritis, Other Rheumatologic: No pertinent hx Infectious disease: No pertinent hx Renal/: Chronic renal failure, UTI, Other Endocrine: Diabetes, Hyperparathyroidism Past Surgical History Past Surgical History: Arthroscopy, Cholecystectomy, , Tonsillectomy, Hysterectomy, Other Family History Family History: Cancer, Diabetes, Hypertension, Stroke Social History ALCOHOL: none Drugs: None Lives: with Family Domestic Violence: Neg Current Medications Current Medications Current Medications Sodium Chloride 250 ml @ 0 mls/hr 1X ONCE IV Last administered on 07/04/17 13 :49; Start 07/04/17 at 13:45; Stop 07/04/17 at 13:46; Status DC Ondansetron HCl (Zofran) 4 mg 1X ONCE IV Last administered on 07/04/17 13:49 ; Start 07/04/17 at 13:45; Stop 07/04/17 at 13:46; Status DC Ondansetron HCl (Zofran) 4 mg PRN Q8HRS PRN IV NAUSEA/VOMITING; Start 07/04/17 at 15:00; Stop 07/05/17 at 14:59 Fentanyl Citrate (Fentanyl 2ml Vial) 25 mcg PRN Q2HR PRN IV PAIN; Start at 15:00; Stop 07/05/17 at 14:59 Acetaminophen (Tylenol) 650 mg PRN Q4HRS PRN PO FEVER; Start 07/04/17 at 15:00 ; Stop 07/05/17 at 14:59 Vancomycin HCl (Vanco Per Pharmacy) 1 each PRN DAILY PRN MC SEE COMMENTS Last administered on 07/04/17 17:13; Start 07/04/17 at 15:00 Piperacillin Sod/ Tazobactam Sod (Zosyn Per Pharmacy) 1 each PRN DAILY PRN MC SEE COMMENTS; Start 07/04/17 at 15:00; Stop 07/04/17 at 16:08; Status DC Levofloxacin/ Dextrose (Levaquin Per Pharmacy) 1 each PRN DAILY PRN MC SEE COMMENTS; Start 07/04/17 at 15:00 Vancomycin HCl 1.5 gm/Sodium Chloride 500 ml @ 250 mls/hr 1X ONCE IV Last administered on 07/04/17 17:53; Start 07/04/17 at 15:15; Stop 07/04/17 at 17:14 ; Status DC Levofloxacin/ Dextrose 150 ml @ 100 mls/hr 1X ONCE IV Last administered on 20:47; Start 07/04/17 at 15:15; Stop 07/04/17 at 16:44; Status DC Piperacillin Sod/ Tazobactam Sod 2.25 gm/Sodium Chloride 50 ml @ 100 mls/hr 1X ONCE IV Last administered on 07/04/17 15:22; Start 07/04/17 at 15:15; Stop 07/04/17 at 15:44; Status DC Piperacillin Sod/ Tazobactam Sod 2.25 gm/Sodium Chloride 50 ml @ 100 mls/hr Q8HRS IV Last administered on 07/05/17 05:33; Start 07/04/17 at 22:00 Levofloxacin/ Dextrose 100 ml @ 100 mls/hr Q48H IV ; Start 07/06/17 at 17:00 Vancomycin HCl 1 each 1X ONCE MC ; Start 07/06/17 at 05:00; Stop 07/06/17 at 05 :01 Acetaminophen (Tylenol) 650 mg PRN Q6HRS PRN PO MILD PAIN; Start 07/04/17 at 20 :15 Amlodipine Besylate (Norvasc) 10 mg DAILY PO Last administered on 07/05/17 08: 47; Start 07/05/17 at 09:00 Aspirin (Children'S Aspirin) 81 mg DAILYWBKFT PO Last administered on 08:45; Start 07/05/17 at 08:00 Cetirizine HCl (ZyrTEC) 10 mg DAILY PO Last administered on 07/05/17 08:45; Start 07/05/17 at 09:00 Clonidine HCl (Catapres) 0.1 mg BID PO Last administered on 07/05/17 08:46; Start 07/04/17 at 21:00 Docusate Sodium (Colace) 100 mg DAILY PO ; Start 07/05/17 at 09:00 Gabapentin (Neurontin) 200 mg BID PO Last administered on 07/05/17 08:47; Start 07/04/17 at 21:00 Hydralazine HCl (Apresoline) 50 mg TID PO Last administered on 07/04/17 20:47 ; Start 07/04/17 at 21:00 Acetaminophen/ Hydrocodone Bitart (Lortab 7.5/325) 1 tab PRN Q4HRS PRN PO PAIN Last administered on 07/05/17 08:42; Start 07/04/17 at 20:15 Insulin Aspart (NovoLOG) TIDWMEALS SQ ; Start 07/04/17 at 21:00; Stop 07/04/17 at 21:00; Status DC Labetalol HCl (Trandate) 400 mg DAILY PO Last administered on 07/05/17 08:45; Start 07/05/17 at 09:00 Losartan Potassium (Cozaar) 100 mg DAILY PO ; Start 07/05/17 at 09:00 Polyethylene Glycol (miraLAX PACKET) 17 gm DAILY PO ; Start 07/05/17 at 09:00 Sevelamer Carbonate (Renvela) 1,600 mg TIDWMEALS PO Last administered on 08:45; Start 07/04/17 at 21:00 Fluticasone Propionate (Flonase) 2 spray DAILY NS Last administered on 08:48; Start 07/05/17 at 09:00 Insulin Detemir (Levemir) 7 units QHS SQ Last administered on 07/04/17 20:53; Start 07/04/17 at 21:00 Multivitamins (Thera M Plus) 1 tab DAILY PO Last administered on 07/05/17 08: 47; Start 07/05/17 at 09:00 Pantoprazole Sodium (Protonix) 40 mg DAILYAC PO Last administered on 07/05/17 08:46; Start 07/05/17 at 07:30 Ondansetron HCl (Zofran Odt) 4 mg Q8HRS PO ; Start 07/04/17 at 22:00; Stop 07/04 at 22:00; Status DC Vitamin B Complex/ Vitamin C ([place]-Abby) 1 tab DAILY PO Last administered on 08:42; Start 07/05/17 at 09:00 Insulin Aspart (NovoLOG) 0-12 UNITS QIDACHS SQ Last administered on 07/04/17 20:53; Start 07/04/17 at 21:00 Ondansetron HCl (Zofran Odt) 4 mg PRN Q8HRS PRN PO NAUSEA/VOMITING; Start 07/04 at 21:00 Active Scripts Active Novolog Flexpen (Insulin Aspart) 100 Unit/1 Ml Insuln.pen 0 Units SQ TIDWMEALS 30 Days Hydrocodone-Apap 7.5-325 (Hydrocodone Bit/Acetaminophen) 1 Each Tablet 1 Tab PO PRN Q4HRS PRN 10 Days Children's Aspirin (Aspirin) 81 Mg Tab.chew 81 Mg PO DAILYWBKFT 30 Days Cozaar (Losartan Potassium) 50 Mg Tablet 100 Mg PO DAILY Reported Zofran Odt (Ondansetron) 4 Mg Tab.rapdis 1 Tab SL Q8HRS PRN Hydralazine Hcl 50 Mg Tablet 1 Tab PO TID Levemir (Insulin Detemir) 100 Unit/1 Ml Vial 7 Unit SQ HS Gabapentin 100 Mg Capsule 200 Mg PO BID Cetirizine Hcl 10 Mg Tablet 1 Tab PO DAILY Thera-M (Multivits, W-Fe,Other Min) 1 Each Tablet 1 Each PO DAILY Miralax (Polyethylene Glycol 3350) 17 Gm Powd.pack 1 Packet PO DAILY Colace (Docusate Sodium) 100 Mg Capsule 1 Cap PO DAILY Tylenol (Acetaminophen) 325 Mg Tablet 2 Tab PO PRN Q6HRS PRN Clonidine Hcl 0.1 Mg Tablet 0.1 Mg PO BID Alendronate Sodium 70 Mg Tablet 70 Mg PO WEEKLY Labetalol Hcl 200 Mg Tablet 2 Tab PO DAILY Flonase Allergy Relief (Fluticasone Propionate) 9.9 Ml [place].susp 2 Sprays NS DAILY Calcium 600 + Vit D 400 Caplet (Calcium Carbonate/Vitamin D3) 1 Each Tablet 1 Each PO DAILY Renvela (Sevelamer Carbonate) 800 Mg Tablet 2 Tab PO [id number] Norvasc (Amlodipine Besylate) 10 Mg Tablet 10 Mg PO DAILY Windy-Abby Rx Tablet (Vit B Cmplx 3/Fa/Vit C/Biotin) 1 Each Tablet 1 Each PO DAILY Prilosec (Omeprazole) 20 Mg Capsule. 20 Mg PO DAILY Allergies Allergies: Coded Allergies: No Known Drug Allergies (Unverified , 11/01/16) ROS Review of System GEN: + Fevers + Chills Weakness EYES: no new Visual Complaints ENT: no EN Drainage no Hearing deficiets CVS: no Orthopnea no CP RESP: + SOB no PARISI + cough no phlegm per se GI: + Nausea + Vomiting : no Dysuria no Urgency HEME: no easy bruising no Palp Ly Nodes NEURO no Focal Weakness no Sz PSYCH: no Suicidal Ideation no Depression SKIN: no Rashes ENDO: no Polyuria or Polydipsia no Hot/Cold Intolerance MU SK: ch Arthraigia min Myalgia Physical Exam Physical Exam General Appearance: Awake Alert Oriented x 2-3 In no Distress; ill appearring female Eyes: VIsion Unchanged Conjunctiva Normal EN: No EN Drainage Mucous Memb. moist Neck: no JVD min JVP Supple no Thyromegaly CVS: S1 S2 + Murmur No Gallop No Rub no Edema Resp: RLL Rales no Rhonchi no Acc. Muscle use GI: BS +ve NO Bruit Non Tender Non Distended : no CVA tenderness; no Suprapubic Tenderness SKIN: no Rashes Breast Exam deferred Mu.Sk: Adequate ROM o Muscle Atrophy Heme: Unable to palpate Obvious LAD no Splenomegaly NEURO: Good Strength and Tone Cranial Nerves II - XII grossly intact Psych: Ch Depressed no Active hallucination Vital Signs Vital Signs Date Time Temp Pulse Resp B/P (MAP) Pulse Ox O2 Delivery O2 Flow Rate FiO2 07/05/17 08:47 75 109/51 07/05/17 07:55 Nasal Cannula 2.0 07/05/17 07:10 96.2 19 94 96.2 Assessment & Plan ESRD: Current FLuid and E-lyte status does not necessitate emergent need for Dialysis. Will re-evaluate for Dialysis in am and continue on MWF schedule. Anemia: Epogen as ordered; Transfuse with next HD as needed. HTN: Current BP meds reviewed. See orders for changes. Lowish karen - change to Phoslo, one time zemplar HypoAlbuminemia - check Pre-Alb - suspect due to febrile illness Pn - ? CAPn - abx per Dr nunez - ? need for CT chest - due to recurrance Discussed Plan of Care and prognosis etc. at length with family. Labs Labs Laboratory Tests Test 07/04/17 13:25 07/04/17 20:33 07/05/17 05:00 07/05/17 07:18 White Blood Count 21.6 x10^3/uL (4.0-11.0) 17.4 x10^3/uL (4.0-11.0) Red Blood Count 3.74 x10^6/uL (3.50-5.40) 3.02 x10^6/uL (3.50-5.40) Hemoglobin 12.0 g/dL (12.0-15.5) 10.0 g/dL (12.0-15.5) Hematocrit 36.9 % (36.0-47.0) 29.4 % (36.0-47.0) Mean Corpuscular Volume 99 fL (79-100) 97 fL (79-100) Mean Corpuscular Hemoglobin 32 pg (25-35) 33 pg (25-35) Mean Corpuscular Hemoglobin Concent 33 g/dL (31-37) 34 g/dL (31-37) Red Cell Distribution Width 15.0 % (11.5-14.5) 15.0 % (11.5-14.5) Platelet Count 141 x10^3/uL (140-400) 117 x10^3/uL (140-400) Neutrophils (%) (Auto) 92 % (31-73) 84 % (31-73) Lymphocytes (%) (Auto) 3 % (24-48) 10 % (24-48) Monocytes (%) (Auto) 5 % (0-9) 6 % (0-9) Eosinophils (%) (Auto) 0 % (0-3) 1 % (0-3) Basophils (%) (Auto) 0 % (0-3) 0 % (0-3) Neutrophils # (Auto) 19.8 x10^3uL (1.8-7.7) 14.5 x10^3uL (1.8-7.7) Lymphocytes # (Auto) 0.6 x10^3/uL (1.0-4.8) 1.7 x10^3/uL (1.0-4.8) Monocytes # (Auto) 1.1 x10^3/uL (0.0-1.1) 1.1 x10^3/uL (0.0-1.1) Eosinophils # (Auto) 0.0 x10^3/uL (0.0-0.7) 0.1 x10^3/uL (0.0-0.7) Basophils # (Auto) 0.1 x10^3/uL (0.0-0.2) 0.0 x10^3/uL (0.0-0.2) Segmented Neutrophils % 74 % (35-66) Band Neutrophils % 19 % (0-9) Lymphocytes % 2 % (24-48) Monocytes % 5 % (0-10) Platelet Estimate Adequate (ADEQUATE) Sodium Level 142 mmol/L (136-145) 141 mmol/L (136-145) Potassium Level 4.5 mmol/L (3.5-5.1) 4.8 mmol/L (3.5-5.1) Chloride Level 99 mmol/L (98-107) 102 mmol/L (98-107) Carbon Dioxide Level 29 mmol/L (21-32) 31 mmol/L (21-32) Anion Gap 14 (6-14) 8 (6-14) Blood Urea Nitrogen 27 mg/dL (7-20) 38 mg/dL (7-20) Creatinine 5.2 mg/dL (0.6-1.0) 6.1 mg/dL (0.6-1.0) Estimated GFR (Cockcroft-Gault) 8.2 6.8 BUN/Creatinine Ratio 5 (6-20) 6 (6-20) Glucose Level 123 mg/dL (70-99) 72 mg/dL (70-99) Calcium Level 7.8 mg/dL (8.5-10.1) 6.9 mg/dL (8.5-10.1) Total Bilirubin 1.3 mg/dL (0.2-1.0) 1.0 mg/dL (0.2-1.0) Aspartate Amino Transf (AST/SGOT) 33 U/L (15-37) 37 U/L (15-37) Alanine Aminotransferase (ALT/SGPT) 37 U/L (14-59) 23 U/L (14-59) Alkaline Phosphatase 766 U/L (46-116) 557 U/L (46-116) Troponin I Quantitative < 0.017 ng/mL (0.000-0.055) Total Protein 7.4 g/dL (6.4-8.2) 6.3 g/dL (6.4-8.2) Albumin 3.5 g/dL (3.4-5.0) 2.4 g/dL (3.4-5.0) Albumin/Globulin Ratio 0.9 (1.0-1.7) 0.6 (1.0-1.7) Lipase 77 U/L (73-393) Glucose (Fingerstick) 166 mg/dL (70-99) 57 mg/dL (70-99) Test 07/05/17 08:05 Glucose (Fingerstick) 79 mg/dL (70-99) Laboratory Tests Test 07/04/17 13:25 07/04/17 20:33 07/05/17 05:00 07/05/17 07:18 White Blood Count 21.6 x10^3/uL (4.0-11.0) 17.4 x10^3/uL (4.0-11.0) Red Blood Count 3.74 x10^6/uL (3.50-5.40) 3.02 x10^6/uL (3.50-5.40) Hemoglobin 12.0 g/dL (12.0-15.5) 10.0 g/dL (12.0-15.5) Hematocrit 36.9 % (36.0-47.0) 29.4 % (36.0-47.0) Mean Corpuscular Volume 99 fL (79-100) 97 fL (79-100) Mean Corpuscular Hemoglobin 32 pg (25-35) 33 pg (25-35) Mean Corpuscular Hemoglobin Concent 33 g/dL (31-37) 34 g/dL (31-37) Red Cell Distribution Width 15.0 % (11.5-14.5) 15.0 % (11.5-14.5) Platelet Count 141 x10^3/uL (140-400) 117 x10^3/uL (140-400) Neutrophils (%) (Auto) 92 % (31-73) 84 % (31-73) Lymphocytes (%) (Auto) 3 % (24-48) 10 % (24-48) Monocytes (%) (Auto) 5 % (0-9) 6 % (0-9) Eosinophils (%) (Auto) 0 % (0-3) 1 % (0-3) Basophils (%) (Auto) 0 % (0-3) 0 % (0-3) Neutrophils # (Auto) 19.8 x10^3uL (1.8-7.7) 14.5 x10^3uL (1.8-7.7) Lymphocytes # (Auto) 0.6 x10^3/uL (1.0-4.8) 1.7 x10^3/uL (1.0-4.8) Monocytes # (Auto) 1.1 x10^3/uL (0.0-1.1) 1.1 x10^3/uL (0.0-1.1) Eosinophils # (Auto) 0.0 x10^3/uL (0.0-0.7) 0.1 x10^3/uL (0.0-0.7) Basophils # (Auto) 0.1 x10^3/uL (0.0-0.2) 0.0 x10^3/uL (0.0-0.2) Segmented Neutrophils % 74 % (35-66) Band Neutrophils % 19 % (0-9) Lymphocytes % 2 % (24-48) Monocytes % 5 % (0-10) Platelet Estimate Adequate (ADEQUATE) Sodium Level 142 mmol/L (136-145) 141 mmol/L (136-145) Potassium Level 4.5 mmol/L (3.5-5.1) 4.8 mmol/L (3.5-5.1) Chloride Level 99 mmol/L (98-107) 102 mmol/L (98-107) Carbon Dioxide Level 29 mmol/L (21-32) 31 mmol/L (21-32) Anion Gap 14 (6-14) 8 (6-14) Blood Urea Nitrogen 27 mg/dL (7-20) 38 mg/dL (7-20) Creatinine 5.2 mg/dL (0.6-1.0) 6.1 mg/dL (0.6-1.0) Estimated GFR (Cockcroft-Gault) 8.2 6.8 BUN/Creatinine Ratio 5 (6-20) 6 (6-20) Glucose Level 123 mg/dL (70-99) 72 mg/dL (70-99) Calcium Level 7.8 mg/dL (8.5-10.1) 6.9 mg/dL (8.5-10.1) Total Bilirubin 1.3 mg/dL (0.2-1.0) 1.0 mg/dL (0.2-1.0) Aspartate Amino Transf (AST/SGOT) 33 U/L (15-37) 37 U/L (15-37) Alanine Aminotransferase (ALT/SGPT) 37 U/L (14-59) 23 U/L (14-59) Alkaline Phosphatase 766 U/L (46-116) 557 U/L (46-116) Troponin I Quantitative < 0.017 ng/mL (0.000-0.055) Total Protein 7.4 g/dL (6.4-8.2) 6.3 g/dL (6.4-8.2) Albumin 3.5 g/dL (3.4-5.0) 2.4 g/dL (3.4-5.0) Albumin/Globulin Ratio 0.9 (1.0-1.7) 0.6 (1.0-1.7) Lipase 77 U/L (73-393) Glucose (Fingerstick) 166 mg/dL (70-99) 57 mg/dL (70-99) Test 07/05/17 08:05 Glucose (Fingerstick) 79 mg/dL (70-99) Images Images CT Abd/ Pelvis: IMPRESSION: No acute or significant finding seen in the abdomen or pelvis. Infiltrate in the right lower lobe compatible with pneumonia. Small kidneys. Musculoskeletal changes, chronic. CXR: Portable chest, 07/04/2017: History: Nausea, vomiting, diarrhea, shortness of breath Comparison is made to a study from 06/15/2017. The heart is within normal limits in size. There are mild patchy perihilar and basilar infiltrates, greatest in the right lower chest. The underlying pulmonary vascularity is somewhat poorly defined. No pleural fluid is seen. There is mild chronic elevation of the right hemidiaphragm. IMPRESSION: Mild bilateral pulmonary infiltrates compatible with pneumonia and/or pulmonary edema, most prominent in the right ba GÓMEZ REAVES MD Jul 05, 2017 11:09
[2017-07-05] MEDS ORDERED: PARICALCITOL 5 MCG/ML VIAL. IV ONE (11:30)
[2017-07-05] MEDS: CALCIUM ACETATE 667 MG CAPSULE PO SCH ×2 (11:56→16:57)
--- NOTE | 2017-07-05 13:01 | CONS ---
DATE OF CONSULTATION: PRIMARY PHYSICIAN: Dr. Banuelos. REASON FOR CONSULTATION: ESRD dialysis. HISTORY OF PRESENT ILLNESS: Ms. Gold is a 67-year-old female who presented to the ER with complaints of nausea, vomiting, diarrhea. She also was noted to have fevers, chills and has been coughing up stuff. She underwent CT scan of her abdomen and pelvis, which revealed a possible right lower lobe pneumonia. She also had a chest x-ray done thereafter, which confirmed the findings of the same, with possibly bilateral pulmonary infiltrates. She dialyzes Tuesday, Tuesday and Tuesday, and has completed a full session yesterday. Denies any complaints. Albumin is low. P.o. intake has been poor by her reports. She is not aware of weight loss. White count was elevated to 21.6 in the ER and she was admitted. We were asked to see her for her ESRD status. For rest of the details, please see electronic records. GÓMEZ REAVES MD DR: JAVIER/ronaldo JOB#: [id number] / [id number]
--- NOTE | 2017-07-05 13:39 | PDOC ---
PROGRESS NOTES Subjective Subjective Patient feeling better but still achy and weak. Objective Objective Vital Signs Date Time Temp Pulse Resp B/P (MAP) Pulse Ox O2 Delivery O2 Flow Rate FiO2 07/05/17 11:07 98.0 69 19 100/44 (62) 96 Nasal Cannula 2.0 98.0 Intake and Output 07/06/17 06:59 Output Total 200 ml Balance -200 ml Output Urine Total 200 ml Physical Exam Abdomen: Normal bowel sounds Heart: Regular rate Extremities: No edema General: Alert Lungs: Clear to auscultation Assessment Assessment Healthcare acquired pneumonia. End-stage renal disease on dialysis. Type 2 diabetes. PAST MEDICAL HISTORY INCLUDE: 1. End-stage renal disease. 2. Hypertension. 3. High cholesterol. 4. Type 2 diabetes. 5. Diabetic neuropathy. 6. Diabetic retinopathy. 7. Lumbar spinal stenosis. 8. Osteoporosis. 9. Drop foot. Plan Plan of Care Continue IV hydration. Proceed with IV antibiotics. Continue oxygen support. Increase activity and diet. Comment Review of Relevant I have reviewed the following items cosmo (where applicable) has been applied. Labs Laboratory Tests Test 07/04/17 13:25 07/04/17 20:33 07/05/17 05:00 07/05/17 07:18 White Blood Count 21.6 x10^3/uL (4.0-11.0) 17.4 x10^3/uL (4.0-11.0) Red Blood Count 3.74 x10^6/uL (3.50-5.40) 3.02 x10^6/uL (3.50-5.40) Hemoglobin 12.0 g/dL (12.0-15.5) 10.0 g/dL (12.0-15.5) Hematocrit 36.9 % (36.0-47.0) 29.4 % (36.0-47.0) Mean Corpuscular Volume 99 fL (79-100) 97 fL (79-100) Mean Corpuscular Hemoglobin 32 pg (25-35) 33 pg (25-35) Mean Corpuscular Hemoglobin Concent 33 g/dL (31-37) 34 g/dL (31-37) Red Cell Distribution Width 15.0 % (11.5-14.5) 15.0 % (11.5-14.5) Platelet Count 141 x10^3/uL (140-400) 117 x10^3/uL (140-400) Neutrophils (%) (Auto) 92 % (31-73) 84 % (31-73) Lymphocytes (%) (Auto) 3 % (24-48) 10 % (24-48) Monocytes (%) (Auto) 5 % (0-9) 6 % (0-9) Eosinophils (%) (Auto) 0 % (0-3) 1 % (0-3) Basophils (%) (Auto) 0 % (0-3) 0 % (0-3) Neutrophils # (Auto) 19.8 x10^3uL (1.8-7.7) 14.5 x10^3uL (1.8-7.7) Lymphocytes # (Auto) 0.6 x10^3/uL (1.0-4.8) 1.7 x10^3/uL (1.0-4.8) Monocytes # (Auto) 1.1 x10^3/uL (0.0-1.1) 1.1 x10^3/uL (0.0-1.1) Eosinophils # (Auto) 0.0 x10^3/uL (0.0-0.7) 0.1 x10^3/uL (0.0-0.7) Basophils # (Auto) 0.1 x10^3/uL (0.0-0.2) 0.0 x10^3/uL (0.0-0.2) Segmented Neutrophils % 74 % (35-66) Band Neutrophils % 19 % (0-9) Lymphocytes % 2 % (24-48) Monocytes % 5 % (0-10) Platelet Estimate Adequate (ADEQUATE) Sodium Level 142 mmol/L (136-145) 141 mmol/L (136-145) Potassium Level 4.5 mmol/L (3.5-5.1) 4.8 mmol/L (3.5-5.1) Chloride Level 99 mmol/L (98-107) 102 mmol/L (98-107) Carbon Dioxide Level 29 mmol/L (21-32) 31 mmol/L (21-32) Anion Gap 14 (6-14) 8 (6-14) Blood Urea Nitrogen 27 mg/dL (7-20) 38 mg/dL (7-20) Creatinine 5.2 mg/dL (0.6-1.0) 6.1 mg/dL (0.6-1.0) Estimated GFR (Cockcroft-Gault) 8.2 6.8 BUN/Creatinine Ratio 5 (6-20) 6 (6-20) Glucose Level 123 mg/dL (70-99) 72 mg/dL (70-99) Calcium Level 7.8 mg/dL (8.5-10.1) 6.9 mg/dL (8.5-10.1) Total Bilirubin 1.3 mg/dL (0.2-1.0) 1.0 mg/dL (0.2-1.0) Aspartate Amino Transf (AST/SGOT) 33 U/L (15-37) 37 U/L (15-37) Alanine Aminotransferase (ALT/SGPT) 37 U/L (14-59) 23 U/L (14-59) Alkaline Phosphatase 766 U/L (46-116) 557 U/L (46-116) Troponin I Quantitative < 0.017 ng/mL (0.000-0.055) Total Protein 7.4 g/dL (6.4-8.2) 6.3 g/dL (6.4-8.2) Albumin 3.5 g/dL (3.4-5.0) 2.4 g/dL (3.4-5.0) Albumin/Globulin Ratio 0.9 (1.0-1.7) 0.6 (1.0-1.7) Lipase 77 U/L (73-393) Glucose (Fingerstick) 166 mg/dL (70-99) 57 mg/dL (70-99) Test 07/05/17 08:05 07/05/17 11:54 Glucose (Fingerstick) 79 mg/dL (70-99) 98 mg/dL (70-99) Laboratory Tests Test 07/04/17 20:33 07/05/17 05:00 07/05/17 07:18 07/05/17 08:05 Glucose (Fingerstick) 166 mg/dL (70-99) 57 mg/dL (70-99) 79 mg/dL (70-99) White Blood Count 17.4 x10^3/uL (4.0-11.0) Red Blood Count 3.02 x10^6/uL (3.50-5.40) Hemoglobin 10.0 g/dL (12.0-15.5) Hematocrit 29.4 % (36.0-47.0) Mean Corpuscular Volume 97 fL (79-100) Mean Corpuscular Hemoglobin 33 pg (25-35) Mean Corpuscular Hemoglobin Concent 34 g/dL (31-37) Red Cell Distribution Width 15.0 % (11.5-14.5) Platelet Count 117 x10^3/uL (140-400) Neutrophils (%) (Auto) 84 % (31-73) Lymphocytes (%) (Auto) 10 % (24-48) Monocytes (%) (Auto) 6 % (0-9) Eosinophils (%) (Auto) 1 % (0-3) Basophils (%) (Auto) 0 % (0-3) Neutrophils # (Auto) 14.5 x10^3uL (1.8-7.7) Lymphocytes # (Auto) 1.7 x10^3/uL (1.0-4.8) Monocytes # (Auto) 1.1 x10^3/uL (0.0-1.1) Eosinophils # (Auto) 0.1 x10^3/uL (0.0-0.7) Basophils # (Auto) 0.0 x10^3/uL (0.0-0.2) Sodium Level 141 mmol/L (136-145) Potassium Level 4.8 mmol/L (3.5-5.1) Chloride Level 102 mmol/L (98-107) Carbon Dioxide Level 31 mmol/L (21-32) Anion Gap 8 (6-14) Blood Urea Nitrogen 38 mg/dL (7-20) Creatinine 6.1 mg/dL (0.6-1.0) Estimated GFR (Cockcroft-Gault) 6.8 BUN/Creatinine Ratio 6 (6-20) Glucose Level 72 mg/dL (70-99) Calcium Level 6.9 mg/dL (8.5-10.1) Total Bilirubin 1.0 mg/dL (0.2-1.0) Aspartate Amino Transf (AST/SGOT) 37 U/L (15-37) Alanine Aminotransferase (ALT/SGPT) 23 U/L (14-59) Alkaline Phosphatase 557 U/L (46-116) Total Protein 6.3 g/dL (6.4-8.2) Albumin 2.4 g/dL (3.4-5.0) Albumin/Globulin Ratio 0.6 (1.0-1.7) Test 07/05/17 11:54 Glucose (Fingerstick) 98 mg/dL (70-99) Medications Current Medications Sodium Chloride 250 ml @ 0 mls/hr 1X ONCE IV Last administered on 07/04/17 13 :49; Start 07/04/17 at 13:45; Stop 07/04/17 at 13:46; Status DC Ondansetron HCl (Zofran) 4 mg 1X ONCE IV Last administered on 07/04/17 13:49 ; Start 07/04/17 at 13:45; Stop 07/04/17 at 13:46; Status DC Ondansetron HCl (Zofran) 4 mg PRN Q8HRS PRN IV NAUSEA/VOMITING; Start 07/04/17 at 15:00; Stop 07/05/17 at 14:59 Fentanyl Citrate (Fentanyl 2ml Vial) 25 mcg PRN Q2HR PRN IV PAIN; Start at 15:00; Stop 07/05/17 at 14:59 Acetaminophen (Tylenol) 650 mg PRN Q4HRS PRN PO FEVER; Start 07/04/17 at 15:00 ; Stop 07/05/17 at 12:40; Status DC Vancomycin HCl (Vanco Per Pharmacy) 1 each PRN DAILY PRN MC SEE COMMENTS Last administered on 07/04/17 17:13; Start 07/04/17 at 15:00 Piperacillin Sod/ Tazobactam Sod (Zosyn Per Pharmacy) 1 each PRN DAILY PRN MC SEE COMMENTS; Start 07/04/17 at 15:00; Stop 07/04/17 at 16:08; Status DC Levofloxacin/ Dextrose (Levaquin Per Pharmacy) 1 each PRN DAILY PRN MC SEE COMMENTS; Start 07/04/17 at 15:00 Vancomycin HCl 1.5 gm/Sodium Chloride 500 ml @ 250 mls/hr 1X ONCE IV Last administered on 07/04/17 17:53; Start 07/04/17 at 15:15; Stop 07/04/17 at 17:14 ; Status DC Levofloxacin/ Dextrose 150 ml @ 100 mls/hr 1X ONCE IV Last administered on 20:47; Start 07/04/17 at 15:15; Stop 07/04/17 at 16:44; Status DC Piperacillin Sod/ Tazobactam Sod 2.25 gm/Sodium Chloride 50 ml @ 100 mls/hr 1X ONCE IV Last administered on 07/04/17 15:22; Start 07/04/17 at 15:15; Stop 07/04/17 at 15:44; Status DC Piperacillin Sod/ Tazobactam Sod 2.25 gm/Sodium Chloride 50 ml @ 100 mls/hr Q8HRS IV Last administered on 07/05/17 05:33; Start 07/04/17 at 22:00 Levofloxacin/ Dextrose 100 ml @ 100 mls/hr Q48H IV ; Start 07/06/17 at 17:00 Vancomycin HCl 1 each 1X ONCE MC ; Start 07/06/17 at 05:00; Stop 07/06/17 at 05 :01 Acetaminophen (Tylenol) 650 mg PRN Q6HRS PRN PO MILD PAIN; Start 07/04/17 at 20 :15 Amlodipine Besylate (Norvasc) 10 mg DAILY PO Last administered on 07/05/17 08: 47; Start 07/05/17 at 09:00 Aspirin (Children'S Aspirin) 81 mg DAILYWBKFT PO Last administered on 08:45; Start 07/05/17 at 08:00 Cetirizine HCl (ZyrTEC) 10 mg DAILY PO Last administered on 07/05/17 08:45; Start 07/05/17 at 09:00 Clonidine HCl (Catapres) 0.1 mg BID PO Last administered on 07/05/17 08:46; Start 07/04/17 at 21:00 Docusate Sodium (Colace) 100 mg DAILY PO ; Start 07/05/17 at 09:00 Gabapentin (Neurontin) 200 mg BID PO Last administered on 07/05/17 08:47; Start 07/04/17 at 21:00 Hydralazine HCl (Apresoline) 50 mg TID PO Last administered on 07/04/17 20:47 ; Start 07/04/17 at 21:00 Acetaminophen/ Hydrocodone Bitart (Lortab 7.5/325) 1 tab PRN Q4HRS PRN PO PAIN Last administered on 07/05/17 08:42; Start 07/04/17 at 20:15 Insulin Aspart (NovoLOG) TIDWMEALS SQ ; Start 07/04/17 at 21:00; Stop 07/04/17 at 21:00; Status DC Labetalol HCl (Trandate) 400 mg DAILY PO Last administered on 07/05/17 08:45; Start 07/05/17 at 09:00 Losartan Potassium (Cozaar) 100 mg DAILY PO ; Start 07/05/17 at 09:00 Polyethylene Glycol (miraLAX PACKET) 17 gm DAILY PO ; Start 07/05/17 at 09:00 Sevelamer Carbonate (Renvela) 1,600 mg TIDWMEALS PO Last administered on 08:45; Start 07/04/17 at 21:00; Stop 07/05/17 at 11:08; Status DC Fluticasone Propionate (Flonase) 2 spray DAILY NS Last administered on 08:48; Start 07/05/17 at 09:00 Insulin Detemir (Levemir) 7 units QHS SQ Last administered on 07/04/17 20:53; Start 07/04/17 at 21:00 Multivitamins (Thera M Plus) 1 tab DAILY PO Last administered on 07/05/17 08: 47; Start 07/05/17 at 09:00 Pantoprazole Sodium (Protonix) 40 mg DAILYAC PO Last administered on 07/05/17 08:46; Start 07/05/17 at 07:30 Ondansetron HCl (Zofran Odt) 4 mg Q8HRS PO ; Start 07/04/17 at 22:00; Stop 07/04 at 22:00; Status DC Vitamin B Complex/ Vitamin C ([place]-Abby) 1 tab DAILY PO Last administered on 08:42; Start 07/05/17 at 09:00 Insulin Aspart (NovoLOG) 0-12 UNITS QIDACHS SQ Last administered on 07/04/17 20:53; Start 07/04/17 at 21:00 Ondansetron HCl (Zofran Odt) 4 mg PRN Q8HRS PRN PO NAUSEA/VOMITING; Start 07/04 at 21:00 Calcium Acetate (Phoslo) 1,334 mg TIDWMEALS PO Last administered on 07/05/17 11:56; Start 07/05/17 at 12:00 Paricalcitol (Zemplar) 5 mcg 1X ONCE IV Last administered on 07/05/17 11:59; Start 07/05/17 at 11:30; Stop 07/05/17 at 11:31; Status DC Active Scripts Active Novolog Flexpen (Insulin Aspart) 100 Unit/1 Ml Insuln.pen 0 Units SQ TIDWMEALS 30 Days Hydrocodone-Apap 7.5-325 (Hydrocodone Bit/Acetaminophen) 1 Each Tablet 1 Tab PO PRN Q4HRS PRN 10 Days Children's Aspirin (Aspirin) 81 Mg Tab.chew 81 Mg PO DAILYWBKFT 30 Days Cozaar (Losartan Potassium) 50 Mg Tablet 100 Mg PO DAILY Reported Zofran Odt (Ondansetron) 4 Mg Tab.rapdis 1 Tab SL Q8HRS PRN Hydralazine Hcl 50 Mg Tablet 1 Tab PO TID Levemir (Insulin Detemir) 100 Unit/1 Ml Vial 7 Unit SQ HS Gabapentin 100 Mg Capsule 200 Mg PO BID Cetirizine Hcl 10 Mg Tablet 1 Tab PO DAILY Thera-M (Multivits,Th W-Fe,Other Min) 1 Each Tablet 1 Each PO DAILY Miralax (Polyethylene Glycol 3350) 17 Gm Powd.pack 1 Packet PO DAILY Colace (Docusate Sodium) 100 Mg Capsule 1 Cap PO DAILY Tylenol (Acetaminophen) 325 Mg Tablet 2 Tab PO PRN Q6HRS PRN Clonidine Hcl 0.1 Mg Tablet 0.1 Mg PO BID Alendronate Sodium 70 Mg Tablet 70 Mg PO WEEKLY Labetalol Hcl 200 Mg Tablet 2 Tab PO DAILY Flonase Allergy Relief (Fluticasone Propionate) 9.9 Ml [place].susp 2 Sprays NS DAILY Calcium 600 + Vit D 400 Caplet (Calcium Carbonate/Vitamin D3) 1 Each Tablet 1 Each PO DAILY Renvela (Sevelamer Carbonate) 800 Mg Tablet 2 Tab PO [id number] Norvasc (Amlodipine Besylate) 10 Mg Tablet 10 Mg PO DAILY Windy-Abby Rx Tablet (Vit B Cmplx 3/Fa/Vit C/Biotin) 1 Each Tablet 1 Each PO DAILY Prilosec (Omeprazole) 20 Mg Capsule.dr 20 Mg PO DAILY Vitals/I & O Vital Sign - Last 24 Hours 07/04/17 07/04/17 07/04/17 07/04/17 14:02 14:25 14:55 15:25 Pulse 96 96 94 95 Resp 13 10 27 18 B/P (MAP) 139/63 (88) 135/62 (86) 121/57 (78) 137/63 (87) Pulse Ox 95 95 96 96 O2 Delivery Nasal Cannula Nasal Cannula Nasal Cannula Nasal Cannula O2 Flow Rate 2.0 2.0 2.0 2.0 07/04/17 07/04/17 07/04/17 07/04/17 15:55 16:25 16:40 18:31 Temp 98.6 98.6 Pulse 94 94 93 Resp 12 14 14 B/P (MAP) 134/60 (84) 139/62 (87) 124/40 (68) Pulse Ox 96 96 95 O2 Delivery Nasal Cannula Nasal Cannula Nasal Cannula O2 Flow Rate 2.0 2.0 2.0 2.0 07/04/17 07/04/17 07/04/17 07/04/17 19:00 19:10 20:47 20:48 Temp 99.0 99.0 Pulse 89 89 89 Resp 18 B/P (MAP) 140/52 (81) 140/52 140/52 Pulse Ox 98 O2 Delivery Nasal Cannula Nasal Cannula O2 Flow Rate 2.0 07/04/17 07/05/17 07/05/17 07/05/17 23:00 03:00 03:05 04:05 Temp 98.8 98.3 98.8 98.3 Pulse 78 76 Resp 20 20 18 18 B/P (MAP) 107/49 (68) 97/44 (61) Pulse Ox 97 90 97 97 O2 Delivery Nasal Cannula Nasal Cannula Nasal Cannula Nasal Cannula O2 Flow Rate 2.0 2.0 07/05/17 07/05/17 07/05/17 07/05/17 07:10 07:55 08:45 08:46 Temp 96.2 96.2 Pulse 75 75 75 Resp 19 B/P (MAP) 109/51 (70) 109/51 109/51 Pulse Ox 94 O2 Delivery Nasal Cannula Nasal Cannula O2 Flow Rate 2.0 07/05/17 07/05/17 08:47 11:07 Temp 98.0 98.0 Pulse 75 69 Resp 19 B/P (MAP) 109/51 100/44 (62) Pulse Ox 96 O2 Delivery Nasal Cannula O2 Flow Rate 2.0 Intake and Output 07/05/17 07/05/17 07/06/17 14:59 22:59 06:59 Output Total 200 ml Balance -200 ml MARQUITA ELLIS MD Jul 05, 2017 13:39
[2017-07-05] MEDS: ONDANSETRON ODT 4 MG TAB.RAPDIS. PO PRN (14:45)
[2017-07-05 15:18] VITALS: BP 129/46
[2017-07-05] MEDS: VANCOMYCIN PER PHARMACY MC PRN (17:05)
[2017-07-05 19:00] VITALS: BP 118/46
[2017-07-05] MEDS: INSULIN DETEMIR 300 UNITS/3 ML INSULN.PEN. SQ SCH (20:44)
[2017-07-05 22:52] VITALS: BP 115/76
[2017-07-06 03:00] VITALS: BP 135/51
[2017-07-06] MEDS ORDERED: VANCOMYCIN RANDOM LEVEL. MC ONE (05:00)
[2017-07-06] MEDS: PIPERACILLIN/TAZOBACTAM 2.25 GM in IV NORMAL SALINE 50ML 50 ML IV SCH (05:13)
[2017-07-06 07:00] VITALS: BP 106/68
[2017-07-06] MEDS: INSULIN ASPART 300 UNITS/3 ML INSULN.PEN SQ SCH ×4 (07:30→20:42)
[2017-07-06] MEDS: CALCIUM ACETATE 667 MG CAPSULE PO SCH ×3 (08:39→17:43)
[2017-07-06] MEDS: POLYETHYLENE GLYCOL 3350 17 GM PACKET. PO SCH (09:00)
[2017-07-06] MEDS: DOCUSATE SODIUM 100 MG CAPSULE. PO SCH (09:00)
[2017-07-06] MEDS ORDERED: IV NORMAL SALINE 1000ML BAG 1,000 ML IV PRN ×2 (10:01)
[2017-07-06] MEDS ORDERED: DIALYSIS PATIENT. MC PRN ×2 (10:15)
--- NOTE | 2017-07-06 10:36 | PDOC ---
Dialysis Progress Note Dialysis Note Dialysis Note Seen on Hemodialysis, tolerating treatment Okay Vitals on Hemodialysis: 93/45 68 afeb currently General Appearance: Awake: Alert Oriented x 2 Neck: No JVD or JVP Chest: CTA [place] Heart: S1 S2 Abdomen - Soft NTND Extremities - No Edema ESRD: Dialysis as below F 180 NR 3.0 Hrs 3 K 2.5 Ca 140 Na 30 HC03 Qb 350 + Qd 500+ Heparin 0 Units Uf 0-1 Kgs or to dry weight as tolerated May give 25-50 gms of 25% Albumin if needed to maintain Hemodynamic stability Treatment plan reviewed and discussed with trade union official Vitals Vital Signs Vital Signs Date Time Temp Pulse Resp B/P (MAP) Pulse Ox O2 Delivery O2 Flow Rate FiO2 07/06/17 07:00 97.9 69 17 106/68 (81) 97 Nasal Cannula 2.0 97.9 Labs Last Labs Laboratory Tests Test 07/04/17 13:25 07/04/17 20:33 07/05/17 05:00 07/05/17 07:18 White Blood Count 21.6 x10^3/uL (4.0-11.0) 17.4 x10^3/uL (4.0-11.0) Red Blood Count 3.74 x10^6/uL (3.50-5.40) 3.02 x10^6/uL (3.50-5.40) Hemoglobin 12.0 g/dL (12.0-15.5) 10.0 g/dL (12.0-15.5) Hematocrit 36.9 % (36.0-47.0) 29.4 % (36.0-47.0) Mean Corpuscular Volume 99 fL (79-100) 97 fL (79-100) Mean Corpuscular Hemoglobin 32 pg (25-35) 33 pg (25-35) Mean Corpuscular Hemoglobin Concent 33 g/dL (31-37) 34 g/dL (31-37) Red Cell Distribution Width 15.0 % (11.5-14.5) 15.0 % (11.5-14.5) Platelet Count 141 x10^3/uL (140-400) 117 x10^3/uL (140-400) Neutrophils (%) (Auto) 92 % (31-73) 84 % (31-73) Lymphocytes (%) (Auto) 3 % (24-48) 10 % (24-48) Monocytes (%) (Auto) 5 % (0-9) 6 % (0-9) Eosinophils (%) (Auto) 0 % (0-3) 1 % (0-3) Basophils (%) (Auto) 0 % (0-3) 0 % (0-3) Neutrophils # (Auto) 19.8 x10^3uL (1.8-7.7) 14.5 x10^3uL (1.8-7.7) Lymphocytes # (Auto) 0.6 x10^3/uL (1.0-4.8) 1.7 x10^3/uL (1.0-4.8) Monocytes # (Auto) 1.1 x10^3/uL (0.0-1.1) 1.1 x10^3/uL (0.0-1.1) Eosinophils # (Auto) 0.0 x10^3/uL (0.0-0.7) 0.1 x10^3/uL (0.0-0.7) Basophils # (Auto) 0.1 x10^3/uL (0.0-0.2) 0.0 x10^3/uL (0.0-0.2) Segmented Neutrophils % 74 % (35-66) Band Neutrophils % 19 % (0-9) Lymphocytes % 2 % (24-48) Monocytes % 5 % (0-10) Platelet Estimate Adequate (ADEQUATE) Sodium Level 142 mmol/L (136-145) 141 mmol/L (136-145) Potassium Level 4.5 mmol/L (3.5-5.1) 4.8 mmol/L (3.5-5.1) Chloride Level 99 mmol/L (98-107) 102 mmol/L (98-107) Carbon Dioxide Level 29 mmol/L (21-32) 31 mmol/L (21-32) Anion Gap 14 (6-14) 8 (6-14) Blood Urea Nitrogen 27 mg/dL (7-20) 38 mg/dL (7-20) Creatinine 5.2 mg/dL (0.6-1.0) 6.1 mg/dL (0.6-1.0) Estimated GFR (Cockcroft-Gault) 8.2 6.8 BUN/Creatinine Ratio 5 (6-20) 6 (6-20) Glucose Level 123 mg/dL (70-99) 72 mg/dL (70-99) Calcium Level 7.8 mg/dL (8.5-10.1) 6.9 mg/dL (8.5-10.1) Total Bilirubin 1.3 mg/dL (0.2-1.0) 1.0 mg/dL (0.2-1.0) Aspartate Amino Transf (AST/SGOT) 33 U/L (15-37) 37 U/L (15-37) Alanine Aminotransferase (ALT/SGPT) 37 U/L (14-59) 23 U/L (14-59) Alkaline Phosphatase 766 U/L (46-116) 557 U/L (46-116) Troponin I Quantitative < 0.017 ng/mL (0.000-0.055) Total Protein 7.4 g/dL (6.4-8.2) 6.3 g/dL (6.4-8.2) Albumin 3.5 g/dL (3.4-5.0) 2.4 g/dL (3.4-5.0) Albumin/Globulin Ratio 0.9 (1.0-1.7) 0.6 (1.0-1.7) Lipase 77 U/L (73-393) Glucose (Fingerstick) 166 mg/dL (70-99) 57 mg/dL (70-99) Test 07/05/17 08:05 07/05/17 11:54 07/05/17 16:08 07/05/17 20:42 Glucose (Fingerstick) 79 mg/dL (70-99) 98 mg/dL (70-99) 114 mg/dL (70-99) 147 mg/dL (70-99) Test 07/06/17 04:20 07/06/17 07:38 07/06/17 08:06 Random Vancomycin Level 22.0 mcg/mL Glucose (Fingerstick) 51 mg/dL (70-99) 77 mg/dL (70-99) Laboratory Tests Test 07/05/17 11:54 07/05/17 16:08 07/05/17 20:42 07/06/17 04:20 Glucose (Fingerstick) 98 mg/dL (70-99) 114 mg/dL (70-99) 147 mg/dL (70-99) Random Vancomycin Level 22.0 mcg/mL Test 07/06/17 07:38 07/06/17 08:06 Glucose (Fingerstick) 51 mg/dL (70-99) 77 mg/dL (70-99) GÓMEZ REAVES MD Jul 06, 2017 10:36
[2017-07-06] MEDS: VANCOMYCIN PER PHARMACY MC PRN (12:20)
[2017-07-06] MEDS: PANTOPRAZOLE 40 MG TABLET.DR. PO SCH (13:40)
[2017-07-06] MEDS: ASPIRIN CHEWABLE 81 MG TABLET. PO SCH (13:41)
[2017-07-06] MEDS: FLUTICASONE 50MCG/NASAL SPRAY 16GM BOTTLE. NS SCH (13:41)
[2017-07-06] MEDS: cloNIDine HCL 0.1 MG TABLET PO SCH ×2 (13:42→20:31)
[2017-07-06] MEDS: LOSARTAN POTASSIUM 50 MG TABLET. PO SCH (13:44)
[2017-07-06] MEDS: GABAPENTIN 100 MG CAPSULE. PO SCH ×2 (13:45→20:31)
[2017-07-06] MEDS: amLODIPine BESYLATE 10 MG TABLET PO SCH (13:45)
[2017-07-06] MEDS: FOLIC/VIT B COMP W-C (RENAL) TABLET. PO SCH (13:46)
[2017-07-06] MEDS: MULTIVITAMIN with MINERAL TABLET. PO SCH (13:46)
[2017-07-06] MEDS: LABETALOL HCL 200 MG TABLET PO SCH (13:47)
[2017-07-06] MEDS: CETIRIZINE HCL 10 MG TABLET. PO SCH (13:47)
--- NOTE | 2017-07-06 13:50 | PDOC ---
Provider Note Provider Note dictated YONG WAGNER MD Jul 06, 2017 13:49
--- NOTE | 2017-07-06 14:33 | CONS ---
DATE OF CONSULTATION: 07/06/2017 PULMONARY CONSULTATION ATTENDING PHYSICIAN: Dr. Watson. REASON FOR CONSULTATION: Suspected pneumonia, abnormal chest x-ray. HISTORY OF PRESENT ILLNESS: The patient is a 67-year-old female who has history of end-stage renal disease. She has no history of tobacco use. She was brought into the hospital, she was not feeling well. She said she has been sick. She does not have any increased cough or purulent sputum production. She is not the best historian. She has a history of Clostridium difficile colitis, which was treated in the past and has been having loose stools prior to coming to the hospital. There was some nausea and vomiting as well. The patient's chest x-ray was reviewed. It shows chronically elevated right hemidiaphragm with possible subdiaphragmatic atelectasis and mild atelectasis or infiltrate in the left lower lobe. These findings do not appear to be much different from her previous chest x-ray from 06/15/2017. She had a previous echocardiogram, which showed normal ejection fraction. She also had a previous cardiac catheterization in 03/2017, which showed only mild coronary artery disease. I have been asked to see her for further evaluation. PAST MEDICAL HISTORY: End-stage renal disease, hypertension, dyslipidemia, type 2 diabetes, diabetic neuropathy and retinopathy, history of lumbar spinal stenosis, osteoporosis and footdrop. PAST SURGICAL HISTORY: , tonsillectomy, tubal ligation, AV fistula, bilateral rotator cuff repair and hysterectomy. FAMILY HISTORY: Mother with liver cirrhosis due to hepatitis. Father of CVA at 57. SOCIAL HISTORY: She does not smoke cigarettes and does not drink alcohol. ALLERGIES: None. MORPHINE MAKES HER NAUSEOUS. CURRENT MEDICATIONS: Reviewed as listed in the MRAD including antibiotic, Levaquin and p.o. Augmentin. REVIEW OF SYSTEMS: Limited, but 10-point system obtained. Pertinent positives discussed in history of present illness, otherwise noncontributory. All systems that were negative were reviewed as well. PHYSICAL EXAMINATION: GENERAL: She is awake, in no obvious respiratory distress. VITAL SIGNS: Blood pressure 106/68, afebrile, pulse ox 97% on 2 liters. HEENT: Sclerae nonicteric. NECK: Supple. LUNGS: Diminished breath sounds at the bases. CARDIOVASCULAR: Regular rate and rhythm. ABDOMEN: Soft, nontender. EXTREMITIES: With trace pitting edema. LABORATORY DATA: Reviewed. White cell count 21.6, now it is 17.4, hemoglobin 10.0 and platelets are 117. BUN is 38 and a creatinine of 6.1. IMPRESSION: 1. Abnormal chest x-ray with markedly elevated right hemidiaphragm which could be paralyzed and suspected subsegmental subdiaphragmatic atelectasis versus infiltrate. There is mild patchy infiltrate left base. X-ray findings appear similar to the one from 06/15/2017. Clinically, difficult to assess for pneumonia, but will obtain noncontrast CT chest for better assessment of infiltrates/pneumonia. She does not have fever, but she does have a leukocytosis, which is improving with antibiotics. 2. No significant history of tobacco use. 3. End-stage renal disease, on hemodialysis. Clinically, less likely congestive heart failure. 4. History of previous echocardiogram with normal ejection fraction and also previous left heart catheterization with mild coronary artery disease. RECOMMENDATIONS: 1. Obtain noncontrast CT chest for further evaluation. 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 2. Continue antibiotics for now. 3. Dialysis per Renal. 4. Continue oxygen. 5. Monitor white cell count. 6. We will follow along with you. Discussed with RN. YONG WAGNER MD DR: ANNY/ronaldo JOB#: [id number] / [id number]
[2017-07-06 15:00] VITALS: BP 115/64
--- NOTE | 2017-07-06 15:07 | RAD ---
CT of the chest without contrast, 07/06/2017: History: Pneumonia versus atelectasis, paralyzed diaphragm Noncontrast scans were obtained as requested. Comparison is made to a study from 11/21/2014. There is mild calcific plaquing of the thoracic aorta and its branches. Several coronary artery calcifications are noted. The thoracic aorta is not dilated. The heart is mildly enlarged. There is a small amount of radiopaque material and gas in the esophagus. The radiopaque material may represent medication. The findings suggest reflux or poor esophageal peristalsis. There is a suggestion of a small hiatal hernia. There is mild chronic elevation of the right hemidiaphragm. There is moderate infiltrate in the right lower lobe. This is worsened since 07/04/2017. No significant infiltrate is seen in the right middle or upper lobes. There is thickening of the minor fissure on the right. Streaky left basilar opacities are similar to those seen on 11/21/2014 and are probably largely due to scarring. There are partially calcified nodules in the anterior aspect of the left lower lobe abutting the oblique fissure. These were also present on the previous study and show no definite change. No significant volume of pleural fluid is present on either side. There is severe bilateral renal atrophy and scarring. There is an old vertebral compression fracture at T12 with mild retropulsion of a fracture fragment. There are scattered degenerative changes in the spine. IMPRESSION: 1. Worsening moderate right lower lobe infiltrate compatible with pneumonia. 2. Mild chronic elevation of the right hemidiaphragm. 3. Fibrocalcific scarring in the left lower chest. 4. Mild cardiomegaly with calcific plaquing of the aorta and coronary arteries. 5. Small hiatal hernia. 6. Atrophic, scarred kidneys. PQRS Compliance Statement: One or more of the following individualized dose reduction techniques were utilized for this examination: 1. Automated exposure control 2. Adjustment of the mA and/or kV according to patient size 3. Use of iterative reconstruction technique
--- NOTE | 2017-07-06 17:14 | PDOC ---
PROGRESS NOTES Subjective Subjective Patient had a tilt evening last night due to nausea. Patient otherwise in general improving and feels somewhat better today. Concern nausea may be due to antibiotic treatment. We'll consult pulmonary for clarification of healthcare acquired versus continued required pathology in a dialysis patient and confirmation of chest x-ray findings. Objective Objective Vital Signs Date Time Temp Pulse Resp B/P (MAP) Pulse Ox O2 Delivery O2 Flow Rate FiO2 07/06/17 13:48 83 165/58 07/06/17 08:00 Nasal Cannula 2.0 07/06/17 07:00 97.9 17 97 97.9 Physical Exam Abdomen: Normal bowel sounds Heart: Regular rate Extremities: No edema General: Alert Lungs: Clear to auscultation Assessment Assessment Healthcare acquired pneumonia. End-stage renal disease on dialysis. Type 2 diabetes. PAST MEDICAL HISTORY INCLUDE: 1. End-stage renal disease. 2. Hypertension. 3. High cholesterol. 4. Type 2 diabetes. 5. Diabetic neuropathy. 6. Diabetic retinopathy. 7. Lumbar spinal stenosis. 8. Osteoporosis. 9. Drop foot. Plan Plan of Care Consider changing to by mouth antibiotics today due to nausea with IV antibiotics. Consult pulmonary medicine. Increase activity and diet. Comment Review of Relevant I have reviewed the following items cosmo (where applicable) has been applied. Labs Laboratory Tests Test 07/04/17 20:33 07/05/17 05:00 07/05/17 07:18 07/05/17 08:05 Glucose (Fingerstick) 166 mg/dL (70-99) 57 mg/dL (70-99) 79 mg/dL (70-99) White Blood Count 17.4 x10^3/uL (4.0-11.0) Red Blood Count 3.02 x10^6/uL (3.50-5.40) Hemoglobin 10.0 g/dL (12.0-15.5) Hematocrit 29.4 % (36.0-47.0) Mean Corpuscular Volume 97 fL (79-100) Mean Corpuscular Hemoglobin 33 pg (25-35) Mean Corpuscular Hemoglobin Concent 34 g/dL (31-37) Red Cell Distribution Width 15.0 % (11.5-14.5) Platelet Count 117 x10^3/uL (140-400) Neutrophils (%) (Auto) 84 % (31-73) Lymphocytes (%) (Auto) 10 % (24-48) Monocytes (%) (Auto) 6 % (0-9) Eosinophils (%) (Auto) 1 % (0-3) Basophils (%) (Auto) 0 % (0-3) Neutrophils # (Auto) 14.5 x10^3uL (1.8-7.7) Lymphocytes # (Auto) 1.7 x10^3/uL (1.0-4.8) Monocytes # (Auto) 1.1 x10^3/uL (0.0-1.1) Eosinophils # (Auto) 0.1 x10^3/uL (0.0-0.7) Basophils # (Auto) 0.0 x10^3/uL (0.0-0.2) Sodium Level 141 mmol/L (136-145) Potassium Level 4.8 mmol/L (3.5-5.1) Chloride Level 102 mmol/L (98-107) Carbon Dioxide Level 31 mmol/L (21-32) Anion Gap 8 (6-14) Blood Urea Nitrogen 38 mg/dL (7-20) Creatinine 6.1 mg/dL (0.6-1.0) Estimated GFR (Cockcroft-Gault) 6.8 BUN/Creatinine Ratio 6 (6-20) Glucose Level 72 mg/dL (70-99) Calcium Level 6.9 mg/dL (8.5-10.1) Total Bilirubin 1.0 mg/dL (0.2-1.0) Aspartate Amino Transf (AST/SGOT) 37 U/L (15-37) Alanine Aminotransferase (ALT/SGPT) 23 U/L (14-59) Alkaline Phosphatase 557 U/L (46-116) Total Protein 6.3 g/dL (6.4-8.2) Albumin 2.4 g/dL (3.4-5.0) Albumin/Globulin Ratio 0.6 (1.0-1.7) Test 07/05/17 11:54 07/05/17 16:08 07/05/17 20:42 07/06/17 04:20 Glucose (Fingerstick) 98 mg/dL (70-99) 114 mg/dL (70-99) 147 mg/dL (70-99) Random Vancomycin Level 22.0 mcg/mL Test 07/06/17 07:38 07/06/17 08:06 07/06/17 13:30 07/06/17 16:58 Glucose (Fingerstick) 51 mg/dL (70-99) 77 mg/dL (70-99) 103 mg/dL (70-99) 254 mg/dL (70-99) Laboratory Tests Test 07/05/17 20:42 07/06/17 04:20 07/06/17 07:38 07/06/17 08:06 Glucose (Fingerstick) 147 mg/dL (70-99) 51 mg/dL (70-99) 77 mg/dL (70-99) Random Vancomycin Level 22.0 mcg/mL Test 07/06/17 13:30 07/06/17 16:58 Glucose (Fingerstick) 103 mg/dL (70-99) 254 mg/dL (70-99) Medications Current Medications Sodium Chloride 250 ml @ 0 mls/hr 1X ONCE IV Last administered on 07/04/17 13 :49; Start 07/04/17 at 13:45; Stop 07/04/17 at 13:46; Status DC Ondansetron HCl (Zofran) 4 mg 1X ONCE IV Last administered on 07/04/17 13:49 ; Start 07/04/17 at 13:45; Stop 07/04/17 at 13:46; Status DC Ondansetron HCl (Zofran) 4 mg PRN Q8HRS PRN IV NAUSEA/VOMITING; Start 07/04/17 at 15:00; Stop 07/05/17 at 14:59; Status DC Fentanyl Citrate (Fentanyl 2ml Vial) 25 mcg PRN Q2HR PRN IV PAIN; Start at 15:00; Stop 07/05/17 at 14:59; Status DC Acetaminophen (Tylenol) 650 mg PRN Q4HRS PRN PO FEVER; Start 07/04/17 at 15:00 ; Stop 07/05/17 at 12:40; Status DC Vancomycin HCl (Vanco Per Pharmacy) 1 each PRN DAILY PRN MC SEE COMMENTS Last administered on 07/06/17 12:20; Start 07/04/17 at 15:00; Stop 07/06/17 at 13:24 ; Status DC Piperacillin Sod/ Tazobactam Sod (Zosyn Per Pharmacy) 1 each PRN DAILY PRN MC SEE COMMENTS; Start 07/04/17 at 15:00; Stop 07/04/17 at 16:08; Status DC Levofloxacin/ Dextrose (Levaquin Per Pharmacy) 1 each PRN DAILY PRN MC SEE COMMENTS; Start 07/04/17 at 15:00; Stop 07/06/17 at 13:24; Status DC Vancomycin HCl 1.5 gm/Sodium Chloride 500 ml @ 250 mls/hr 1X ONCE IV Last administered on 07/04/17 17:53; Start 07/04/17 at 15:15; Stop 07/04/17 at 17:14 ; Status DC Levofloxacin/ Dextrose 150 ml @ 100 mls/hr 1X ONCE IV Last administered on 20:47; Start 07/04/17 at 15:15; Stop 07/04/17 at 16:44; Status DC Piperacillin Sod/ Tazobactam Sod 2.25 gm/Sodium Chloride 50 ml @ 100 mls/hr 1X ONCE IV Last administered on 07/04/17 15:22; Start 07/04/17 at 15:15; Stop 07/04/17 at 15:44; Status DC Piperacillin Sod/ Tazobactam Sod 2.25 gm/Sodium Chloride 50 ml @ 100 mls/hr Q8HRS IV Last administered on 07/06/17 05:13; Start 07/04/17 at 22:00; Stop at 13:24; Status DC Levofloxacin/ Dextrose 100 ml @ 100 mls/hr Q48H IV ; Start 07/06/17 at 17:00; Stop 07/06/17 at 17:00; Status DC Vancomycin HCl 1 each 1X ONCE MC ; Start 07/06/17 at 05:00; Stop 07/06/17 at 13 :24; Status DC Acetaminophen (Tylenol) 650 mg PRN Q6HRS PRN PO MILD PAIN; Start 07/04/17 at 20 :15 Amlodipine Besylate (Norvasc) 10 mg DAILY PO Last administered on 07/06/17 13: 45; Start 07/05/17 at 09:00 Aspirin (Children'S Aspirin) 81 mg DAILYWBKFT PO Last administered on 13:41; Start 07/05/17 at 08:00 Cetirizine HCl (ZyrTEC) 10 mg DAILY PO Last administered on 07/06/17 13:47; Start 07/05/17 at 09:00 Clonidine HCl (Catapres) 0.1 mg BID PO Last administered on 07/06/17 13:42; Start 07/04/17 at 21:00 Docusate Sodium (Colace) 100 mg DAILY PO ; Start 07/05/17 at 09:00 Gabapentin (Neurontin) 200 mg BID PO Last administered on 07/06/17 13:45; Start 07/04/17 at 21:00 Hydralazine HCl (Apresoline) 50 mg TID PO Last administered on 07/06/17 13:48 ; Start 07/04/17 at 21:00 Acetaminophen/ Hydrocodone Bitart (Lortab 7.5/325) 1 tab PRN Q4HRS PRN PO PAIN Last administered on 07/05/17 08:42; Start 07/04/17 at 20:15 Insulin Aspart (NovoLOG) TIDWMEALS SQ ; Start 07/04/17 at 21:00; Stop 07/04/17 at 21:00; Status DC Labetalol HCl (Trandate) 400 mg DAILY PO Last administered on 07/06/17 13:47; Start 07/05/17 at 09:00 Losartan Potassium (Cozaar) 100 mg DAILY PO Last administered on 07/06/17 13: 44; Start 07/05/17 at 09:00 Polyethylene Glycol (miraLAX PACKET) 17 gm DAILY PO ; Start 07/05/17 at 09:00 Sevelamer Carbonate (Renvela) 1,600 mg TIDWMEALS PO Last administered on 08:45; Start 07/04/17 at 21:00; Stop 07/05/17 at 11:08; Status DC Fluticasone Propionate (Flonase) 2 spray DAILY NS Last administered on 13:41; Start 07/05/17 at 09:00 Insulin Detemir (Levemir) 7 units QHS SQ Last administered on 07/05/17 20:44; Start 07/04/17 at 21:00 Multivitamins (Thera M Plus) 1 tab DAILY PO Last administered on 07/06/17 13: 46; Start 07/05/17 at 09:00 Pantoprazole Sodium (Protonix) 40 mg DAILYAC PO Last administered on 07/06/17 13:40; Start 07/05/17 at 07:30 Ondansetron HCl (Zofran Odt) 4 mg Q8HRS PO ; Start 07/04/17 at 22:00; Stop 07/04 at 22:00; Status DC Vitamin B Complex/ Vitamin C (Windy-Abby) 1 tab DAILY PO Last administered on 13:46; Start 07/05/17 at 09:00 Insulin Aspart (NovoLOG) 0-12 UNITS QIDACHS SQ Last administered on 07/04/17 20:53; Start 07/04/17 at 21:00 Ondansetron HCl (Zofran Odt) 4 mg PRN Q8HRS PRN PO NAUSEA/VOMITING Last administered on 07/05/17 14:45; Start 07/04/17 at 21:00 Calcium Acetate (Phoslo) 1,334 mg TIDWMEALS PO Last administered on 07/06/17 14:19; Start 07/05/17 at 12:00 Paricalcitol (Zemplar) 5 mcg 1X ONCE IV Last administered on 07/05/17 11:59; Start 07/05/17 at 11:30; Stop 07/05/17 at 11:31; Status DC Sodium Chloride 1,000 ml @ 1,000 mls/hr Q1H PRN IV hypotension; Start 07/06/17 at 10:01; Stop 07/06/17 at 13:24; Status DC Sodium Chloride 1,000 ml @ 400 mls/hr Q2H30M PRN IV PATENCY; Start 07/06/17 at 10:01; Stop 07/06/17 at 13:24; Status DC Info (PHARMACY MONITORING -- do not chart) 1 each PRN DAILY PRN MC SEE COMMENTS ; Start 07/06/17 at 10:15 Info (PHARMACY MONITORING -- do not chart) 1 each PRN DAILY PRN MC SEE COMMENTS ; Start 07/06/17 at 10:15; Status UNV Vancomycin HCl 1 each 1X ONCE MC ; Start 07/08/17 at 06:00; Stop 07/08/17 at 06 :00; Status DC Levofloxacin (Levaquin) 500 mg Q48H PO ; Start 07/07/17 at 06:00 Amoxicillin/ Clavulanate Potassium (Augmentin 500/ 125mg) 1 tab DAILY PO ; Start 07/07/17 at 09:00 Active Scripts Active Novolog Flexpen (Insulin Aspart) 100 Unit/1 Ml Insuln.pen 0 Units SQ TIDWMEALS 30 Days Hydrocodone-Apap 7.5-325 (Hydrocodone Bit/Acetaminophen) 1 Each Tablet 1 Tab PO PRN Q4HRS PRN 10 Days Children's Aspirin (Aspirin) 81 Mg Tab.chew 81 Mg PO DAILYWBKFT 30 Days Cozaar (Losartan Potassium) 50 Mg Tablet 100 Mg PO DAILY Reported Zofran Odt (Ondansetron) 4 Mg Tab.rapdis 1 Tab SL Q8HRS PRN Hydralazine Hcl 50 Mg Tablet 1 Tab PO TID Levemir (Insulin Detemir) 100 Unit/1 Ml Vial 7 Unit SQ HS Gabapentin 100 Mg Capsule 200 Mg PO BID Cetirizine Hcl 10 Mg Tablet 1 Tab PO DAILY Thera-M (Multivits, W-Fe,Other Min) 1 Each Tablet 1 Each PO DAILY Miralax (Polyethylene Glycol 3350) 17 Gm Powd.pack 1 Packet PO DAILY Colace (Docusate Sodium) 100 Mg Capsule 1 Cap PO DAILY Tylenol (Acetaminophen) 325 Mg Tablet 2 Tab PO PRN Q6HRS PRN Clonidine Hcl 0.1 Mg Tablet 0.1 Mg PO BID Alendronate Sodium 70 Mg Tablet 70 Mg PO WEEKLY Labetalol Hcl 200 Mg Tablet 2 Tab PO DAILY Flonase Allergy Relief (Fluticasone Propionate) 9.9 Ml Bruno.susp 2 Sprays NS DAILY Calcium 600 + Vit D 400 Caplet (Calcium Carbonate/Vitamin D3) 1 Each Tablet 1 Each PO DAILY Renvela (Sevelamer Carbonate) 800 Mg Tablet 2 Tab PO [id number] Norvasc (Amlodipine Besylate) 10 Mg Tablet 10 Mg PO DAILY Windy-Abby Rx Tablet (Vit B Cmplx 3/Fa/Vit C/Biotin) 1 Each Tablet 1 Each PO DAILY Prilosec (Omeprazole) 20 Mg Capsule.dr 20 Mg PO DAILY Vitals/I & O Vital Sign - Last 24 Hours 07/05/17 07/05/17 07/05/17 07/05/17 19:00 20:00 20:41 20:41 Temp 96.1 96.1 Pulse 65 65 65 Resp 18 B/P (MAP) 118/46 (70) 118/46 118/46 Pulse Ox 96 O2 Delivery Nasal Cannula Nasal Cannula O2 Flow Rate 2.0 2.0 07/05/17 07/06/17 07/06/17 07/06/17 22:52 03:00 07:00 08:00 Temp 96.1 96.6 97.9 96.1 96.6 97.9 Pulse 66 67 69 Resp 18 18 17 B/P (MAP) 115/76 (89) 135/51 (79) 106/68 (81) Pulse Ox 98 96 97 O2 Delivery Nasal Cannula Nasal Cannula Nasal Cannula Nasal Cannula O2 Flow Rate 2.0 2.0 2.0 2.0 07/06/17 07/06/17 07/06/17 07/06/17 13:42 13:44 13:45 13:47 Pulse 83 83 83 83 B/P (MAP) 165/58 165/58 165/58 165/58 07/06/17 13:48 Pulse 83 B/P (MAP) 165/58 MARQUITA ELLIS MD Jul 06, 2017 17:14
[2017-07-06 19:00] VITALS: BP 118/44
[2017-07-06] MEDS: HYDROcodone/APAP 7.5/325MG 1 TAB TABLET PO PRN (20:31)
[2017-07-06] MEDS: INSULIN DETEMIR 300 UNITS/3 ML INSULN.PEN. SQ SCH (20:38)
[2017-07-06 23:00] VITALS: BP 134/52
[2017-07-07 03:00] VITALS: BP 137/60
[2017-07-07] MEDS: PANTOPRAZOLE 40 MG TABLET.DR. PO SCH (06:32)
[2017-07-07 07:00] VITALS: BP 134/59
[2017-07-07] MEDS: INSULIN ASPART 300 UNITS/3 ML INSULN.PEN SQ SCH ×4 (07:30→21:00)
[2017-07-07] MEDS: CALCIUM ACETATE 667 MG CAPSULE PO SCH ×3 (08:28→17:04)
[2017-07-07] MEDS: amLODIPine BESYLATE 10 MG TABLET PO SCH (08:29)
[2017-07-07] MEDS: POLYETHYLENE GLYCOL 3350 17 GM PACKET. PO SCH (08:29)
[2017-07-07] MEDS: CETIRIZINE HCL 10 MG TABLET. PO SCH (08:30)
[2017-07-07] MEDS: cloNIDine HCL 0.1 MG TABLET PO SCH ×2 (08:30→20:30)
[2017-07-07] MEDS: ASPIRIN CHEWABLE 81 MG TABLET. PO SCH (08:30)
[2017-07-07] MEDS: FOLIC/VIT B COMP W-C (RENAL) TABLET. PO SCH (08:31)
[2017-07-07] MEDS: LOSARTAN POTASSIUM 50 MG TABLET. PO SCH (08:31)
[2017-07-07] MEDS: AMOXICILLIN/K CLAV 500/125MG TABLET. PO SCH (08:31)
[2017-07-07] MEDS: MULTIVITAMIN with MINERAL TABLET. PO SCH (08:31)
[2017-07-07] MEDS: GABAPENTIN 100 MG CAPSULE. PO SCH ×2 (08:31→20:30)
[2017-07-07] MEDS: LABETALOL HCL 200 MG TABLET PO SCH (08:31)
[2017-07-07] MEDS: DOCUSATE SODIUM 100 MG CAPSULE. PO SCH (08:31)
[2017-07-07] MEDS: FLUTICASONE 50MCG/NASAL SPRAY 16GM BOTTLE. NS SCH (08:32)
[2017-07-07 10:30] VITALS: BP 105/38
--- NOTE | 2017-07-07 10:43 | PDOC ---
SUBJECTIVE ROS ESRD Doing same overall CVS: no Orthopnea, no CP RESP: min SOB, ? PARISI + Cough and phlegm GI: no current Nausea, + Vomiting yest : no Dysuria, no Urgency OBJECTIVE Vital Signs Vital Signs Date Time Temp Pulse Resp B/P (MAP) Pulse Ox O2 Delivery O2 Flow Rate FiO2 07/07/17 08:33 61 134/59 07/07/17 07:00 97.7 18 94 97.7 07/06/17 23:00 Nasal Cannula 2.0 I & 0 Intake and Output 07/08/17 07:00 Intake Total 120 ml Balance 120 ml Intake Oral 120 ml PHYSICAL EXAM Physical Exam General Appearance: Awake Alert Oriented x 2-3 In no Distress; ill appearring female Eyes: VIsion Unchanged Conjunctiva Normal EN: No EN Drainage Mucous Memb. moist Neck: no JVD min JVP Supple no Thyromegaly CVS: S1 S2 + Murmur No Gallop No Rub no Edema Resp: RLL Rales no Rhonchi no Acc. Muscle use GI: BS +ve NO Bruit Non Tender Non Distended : no CVA tenderness; no Suprapubic Tenderness Assessment & Plan ESRD: Current FLuid and E-lyte status does not necessitate emergent need for Dialysis. Will re-evaluate for Dialysis in am and continue on MWF schedule. Anemia: Epogen as ordered; Transfuse with next HD as needed. HTN: Current BP meds reviewed. See orders for changes. Lowish karen - changed to Phoslo, one time zemplar given. revl with labs in am HypoAlbuminemia - check Pre-Alb - suspect due to febrile illness Pn - ? CAPn - abx per Dr nunez - ? need for CT chest - due to recurrance Discussed Plan of Care and prognosis etc. at length with family. COMMENT/RELEVANT DATA Meds Current Medications Medications (Trade) Dose Ordered Sig/Bill Start Time Stop Time Status Last Admin Dose Admin Acetaminophen (Tylenol) 650 mg PRN Q6HRS PRN 07/04/17 20:15 Acetaminophen/ Hydrocodone Bitart (Lortab 7.5/325) 1 tab PRN Q4HRS PRN 07/04/17 20:15 07/06/17 20:31 1 TAB Amlodipine Besylate (Norvasc) 10 mg DAILY 07/05/17 09:00 07/07/17 08:29 10 MG Amoxicillin/ Clavulanate Potassium (Augmentin 500/ 125mg) 1 tab DAILY 07/07/17 09:00 07/07/17 08:31 1 TAB Aspirin (Children'S Aspirin) 81 mg DAILYWBKFT 07/05/17 08:00 07/07/17 08:30 81 MG Calcium Acetate (Phoslo) 1,334 mg TIDWMEALS 07/05/17 12:00 07/07/17 08:28 1,334 MG Cetirizine HCl (ZyrTEC) 10 mg DAILY 07/05/17 09:00 07/07/17 08:30 10 MG Clonidine HCl (Catapres) 0.1 mg BID 07/04/17 21:00 07/07/17 08:30 0.1 MG Docusate Sodium (Colace) 100 mg DAILY 07/05/17 09:00 07/07/17 08:31 100 MG Fentanyl Citrate (Fentanyl 2ml Vial) 25 mcg PRN Q2HR PRN 07/04/17 15:00 07/05/17 14:59 DC Fluticasone Propionate (Flonase) 2 spray DAILY 07/05/17 09:00 07/07/17 08:32 2 SPRAY Gabapentin (Neurontin) 200 mg BID 07/04/17 21:00 07/07/17 08:31 200 MG Hydralazine HCl (Apresoline) 50 mg TID 07/04/17 21:00 07/07/17 08:33 50 MG Info (PHARMACY MONITORING -- do not chart) 1 each PRN DAILY PRN 07/06/17 10:15 UNV Insulin Aspart (NovoLOG) 0-12 UNITS QIDACHS 07/04/17 21:00 07/06/17 17:48 6 UNITS Insulin Detemir (Levemir) 7 units QHS 07/04/17 21:00 07/06/17 20:38 7 UNITS Labetalol HCl (Trandate) 400 mg DAILY 07/05/17 09:00 07/07/17 08:31 400 MG Levofloxacin (Levaquin) 500 mg Q48H 07/07/17 06:00 07/07/17 06:32 500 MG Levofloxacin/ Dextrose 100 ml @ 100 mls/hr Q48H 07/06/17 17:00 07/06/17 17:00 DC Levofloxacin/ Dextrose (Levaquin Per Pharmacy) 1 each PRN DAILY PRN 07/04/17 15:00 07/06/17 13:24 DC Losartan Potassium (Cozaar) 100 mg DAILY 07/05/17 09:00 07/07/17 08:31 100 MG Multivitamins (Thera M Plus) 1 tab DAILY 07/05/17 09:00 07/07/17 08:31 1 TAB Ondansetron HCl (Zofran Odt) 4 mg PRN Q8HRS PRN 07/04/17 21:00 07/05/17 14:45 4 MG Ondansetron HCl (Zofran) 4 mg PRN Q8HRS PRN 07/04/17 15:00 07/05/17 14:59 DC Pantoprazole Sodium (Protonix) 40 mg DAILYAC 07/05/17 07:30 07/07/17 06:32 40 MG Paricalcitol (Zemplar) 5 mcg 1X ONCE 07/05/17 11:30 07/05/17 11:31 DC 07/05/17 11:59 5 MCG Piperacillin Sod/ Tazobactam Sod (Zosyn Per Pharmacy) 1 each PRN DAILY PRN 07/04/17 15:00 07/04/17 16:08 DC Piperacillin Sod/ Tazobactam Sod 2.25 gm/Sodium Chloride 50 ml @ 100 mls/hr Q8HRS 07/04/17 22:00 07/06/17 13:24 DC 07/06/17 05:13 100 MLS/HR Polyethylene Glycol (miraLAX PACKET) 17 gm DAILY 07/05/17 09:00 07/07/17 08:29 17 GM Sevelamer Carbonate (Renvela) 1,600 mg TIDWMEALS 07/04/17 21:00 07/05/17 11:08 DC 07/05/17 08:45 1,600 MG Sodium Chloride 1,000 ml @ 400 mls/hr Q2H30M PRN 07/06/17 10:01 07/06/17 13:24 DC Vancomycin HCl 1 each 1X ONCE 07/08/17 06:00 07/08/17 06:00 DC Vancomycin HCl (Vanco Per Pharmacy) 1 each PRN DAILY PRN 07/04/17 15:00 07/06/17 13:24 DC 07/06/17 12:20 1 EACH Vancomycin HCl 1.5 gm/Sodium Chloride 500 ml @ 250 mls/hr 1X ONCE 07/04/17 15:15 07/04/17 17:14 DC 07/04/17 17:53 250 MLS/HR Vitamin B Complex/ Vitamin C (Windy-Abby) 1 tab DAILY 07/05/17 09:00 07/07/17 08:31 1 TAB Lab Laboratory Tests Test 07/06/17 13:30 07/06/17 16:58 07/06/17 20:35 07/07/17 08:11 Glucose (Fingerstick) 103 mg/dL (70-99) 254 mg/dL (70-99) 86 mg/dL (70-99) 148 mg/dL (70-99) GÓMEZ REAVES MD Jul 07, 2017 10:43
[2017-07-07] MEDS ORDERED: MAGNESIUM SULFATE 2GM 50 ML IV PRN (10:45)
--- NOTE | 2017-07-07 12:45 | PDOC ---
PROGRESS NOTES Subjective Subjective Patient still c/o nausea and also of possible hallucinations. patient switched to PO antibx . CT chest shows worsening pneumonia. Objective Objective Vital Signs Date Time Temp Pulse Resp B/P (MAP) Pulse Ox O2 Delivery O2 Flow Rate FiO2 07/07/17 10:30 96.5 63 18 105/38 (60) 94 Nasal Cannula 2.0 96.5 Intake and Output 07/08/17 07:00 Intake Total 120 ml Balance 120 ml Intake Oral 120 ml Physical Exam Abdomen: Normal bowel sounds Heart: Regular rate Extremities: No edema General: Alert Lungs: Other (Course BS bases) Assessment Assessment Healthcare acquired pneumonia. End-stage renal disease on dialysis. Type 2 diabetes. PAST MEDICAL HISTORY INCLUDE: 1. End-stage renal disease. 2. Hypertension. 3. High cholesterol. 4. Type 2 diabetes. 5. Diabetic neuropathy. 6. Diabetic retinopathy. 7. Lumbar spinal stenosis. 8. Osteoporosis. 9. Drop foot. Plan Plan of Care Continue antibx consider switch back to IV antibx if evidence of worsening pneumonia continue. Check cbc continue renal care and pulm eval monitor for worsening hallucinations Comment Review of Relevant I have reviewed the following items cosmo (where applicable) has been applied. Labs Laboratory Tests Test 07/05/17 16:08 07/05/17 20:42 07/06/17 04:20 07/06/17 07:38 Glucose (Fingerstick) 114 mg/dL (70-99) 147 mg/dL (70-99) 51 mg/dL (70-99) Random Vancomycin Level 22.0 mcg/mL Test 07/06/17 08:06 07/06/17 13:30 07/06/17 16:58 07/06/17 20:35 Glucose (Fingerstick) 77 mg/dL (70-99) 103 mg/dL (70-99) 254 mg/dL (70-99) 86 mg/dL (70-99) Test 07/07/17 08:11 07/07/17 11:22 07/07/17 12:00 Glucose (Fingerstick) 148 mg/dL (70-99) 140 mg/dL (70-99) Prealbumin 15.8 mg/dL (16.0-42.0) Laboratory Tests Test 07/06/17 13:30 07/06/17 16:58 07/06/17 20:35 07/07/17 08:11 Glucose (Fingerstick) 103 mg/dL (70-99) 254 mg/dL (70-99) 86 mg/dL (70-99) 148 mg/dL (70-99) Test 07/07/17 11:22 07/07/17 12:00 Glucose (Fingerstick) 140 mg/dL (70-99) Prealbumin 15.8 mg/dL (16.0-42.0) Medications Current Medications Sodium Chloride 250 ml @ 0 mls/hr 1X ONCE IV Last administered on 07/04/17 13 :49; Start 07/04/17 at 13:45; Stop 07/04/17 at 13:46; Status DC Ondansetron HCl (Zofran) 4 mg 1X ONCE IV Last administered on 07/04/17 13:49 ; Start 07/04/17 at 13:45; Stop 07/04/17 at 13:46; Status DC Ondansetron HCl (Zofran) 4 mg PRN Q8HRS PRN IV NAUSEA/VOMITING; Start 07/04/17 at 15:00; Stop 07/05/17 at 14:59; Status DC Fentanyl Citrate (Fentanyl 2ml Vial) 25 mcg PRN Q2HR PRN IV PAIN; Start at 15:00; Stop 07/05/17 at 14:59; Status DC Acetaminophen (Tylenol) 650 mg PRN Q4HRS PRN PO FEVER; Start 07/04/17 at 15:00 ; Stop 07/05/17 at 12:40; Status DC Vancomycin HCl (Vanco Per Pharmacy) 1 each PRN DAILY PRN MC SEE COMMENTS Last administered on 07/06/17 12:20; Start 07/04/17 at 15:00; Stop 07/06/17 at 13:24 ; Status DC Piperacillin Sod/ Tazobactam Sod (Zosyn Per Pharmacy) 1 each PRN DAILY PRN MC SEE COMMENTS; Start 07/04/17 at 15:00; Stop 07/04/17 at 16:08; Status DC Levofloxacin/ Dextrose (Levaquin Per Pharmacy) 1 each PRN DAILY PRN MC SEE COMMENTS; Start 07/04/17 at 15:00; Stop 07/06/17 at 13:24; Status DC Vancomycin HCl 1.5 gm/Sodium Chloride 500 ml @ 250 mls/hr 1X ONCE IV Last administered on 07/04/17 17:53; Start 07/04/17 at 15:15; Stop 07/04/17 at 17:14 ; Status DC Levofloxacin/ Dextrose 150 ml @ 100 mls/hr 1X ONCE IV Last administered on 20:47; Start 07/04/17 at 15:15; Stop 07/04/17 at 16:44; Status DC Piperacillin Sod/ Tazobactam Sod 2.25 gm/Sodium Chloride 50 ml @ 100 mls/hr 1X ONCE IV Last administered on 07/04/17 15:22; Start 07/04/17 at 15:15; Stop 07/04/17 at 15:44; Status DC Piperacillin Sod/ Tazobactam Sod 2.25 gm/Sodium Chloride 50 ml @ 100 mls/hr Q8HRS IV Last administered on 07/06/17 05:13; Start 07/04/17 at 22:00; Stop at 13:24; Status DC Levofloxacin/ Dextrose 100 ml @ 100 mls/hr Q48H IV ; Start 07/06/17 at 17:00; Stop 07/06/17 at 17:00; Status DC Vancomycin HCl 1 each 1X ONCE MC ; Start 07/06/17 at 05:00; Stop 07/06/17 at 13 :24; Status DC Acetaminophen (Tylenol) 650 mg PRN Q6HRS PRN PO MILD PAIN; Start 07/04/17 at 20 :15 Amlodipine Besylate (Norvasc) 10 mg DAILY PO Last administered on 07/07/17 08: 29; Start 07/05/17 at 09:00 Aspirin (Children'S Aspirin) 81 mg DAILYWBKFT PO Last administered on 08:30; Start 07/05/17 at 08:00 Cetirizine HCl (ZyrTEC) 10 mg DAILY PO Last administered on 07/07/17 08:30; Start 07/05/17 at 09:00 Clonidine HCl (Catapres) 0.1 mg BID PO Last administered on 07/07/17 08:30; Start 07/04/17 at 21:00 Docusate Sodium (Colace) 100 mg DAILY PO Last administered on 07/07/17 08:31; Start 07/05/17 at 09:00 Gabapentin (Neurontin) 200 mg BID PO Last administered on 07/07/17 08:31; Start 07/04/17 at 21:00 Hydralazine HCl (Apresoline) 50 mg TID PO Last administered on 07/07/17 08:33 ; Start 07/04/17 at 21:00 Acetaminophen/ Hydrocodone Bitart (Lortab 7.5/325) 1 tab PRN Q4HRS PRN PO PAIN Last administered on 07/06/17 20:31; Start 07/04/17 at 20:15 Insulin Aspart (NovoLOG) TIDWMEALS SQ ; Start 07/04/17 at 21:00; Stop 07/04/17 at 21:00; Status DC Labetalol HCl (Trandate) 400 mg DAILY PO Last administered on 07/07/17 08:31; Start 07/05/17 at 09:00 Losartan Potassium (Cozaar) 100 mg DAILY PO Last administered on 07/07/17 08: 31; Start 07/05/17 at 09:00 Polyethylene Glycol (miraLAX PACKET) 17 gm DAILY PO Last administered on 08:29; Start 07/05/17 at 09:00 Sevelamer Carbonate (Renvela) 1,600 mg TIDWMEALS PO Last administered on 08:45; Start 07/04/17 at 21:00; Stop 07/05/17 at 11:08; Status DC Fluticasone Propionate (Flonase) 2 spray DAILY NS Last administered on 08:32; Start 07/05/17 at 09:00 Insulin Detemir (Levemir) 7 units QHS SQ Last administered on 07/06/17 20:38; Start 07/04/17 at 21:00 Multivitamins (Thera M Plus) 1 tab DAILY PO Last administered on 07/07/17 08: 31; Start 07/05/17 at 09:00 Pantoprazole Sodium (Protonix) 40 mg DAILYAC PO Last administered on 07/07/17 06:32; Start 07/05/17 at 07:30 Ondansetron HCl (Zofran Odt) 4 mg Q8HRS PO ; Start 07/04/17 at 22:00; Stop 07/04 at 22:00; Status DC Vitamin B Complex/ Vitamin C ([place]indy-Abby) 1 tab DAILY PO Last administered on 08:31; Start 07/05/17 at 09:00 Insulin Aspart (NovoLOG) 0-12 UNITS QIDACHS SQ Last administered on 07/06/17 17:48; Start 07/04/17 at 21:00 Ondansetron HCl (Zofran Odt) 4 mg PRN Q8HRS PRN PO NAUSEA/VOMITING Last administered on 07/05/17 14:45; Start 07/04/17 at 21:00 Calcium Acetate (Phoslo) 1,334 mg TIDWMEALS PO Last administered on 07/07/17 12:16; Start 07/05/17 at 12:00 Paricalcitol (Zemplar) 5 mcg 1X ONCE IV Last administered on 07/05/17 11:59; Start 07/05/17 at 11:30; Stop 07/05/17 at 11:31; Status DC Sodium Chloride 1,000 ml @ 1,000 mls/hr Q1H PRN IV hypotension; Start 07/06/17 at 10:01; Stop 07/06/17 at 13:24; Status DC Sodium Chloride 1,000 ml @ 400 mls/hr Q2H30M PRN IV PATENCY; Start 07/06/17 at 10:01; Stop 07/06/17 at 13:24; Status DC Info (PHARMACY MONITORING -- do not chart) 1 each PRN DAILY PRN MC SEE COMMENTS ; Start 07/06/17 at 10:15 Info (PHARMACY MONITORING -- do not chart) 1 each PRN DAILY PRN MC SEE COMMENTS ; Start 07/06/17 at 10:15; Status UNV Vancomycin HCl 1 each 1X ONCE MC ; Start 07/08/17 at 06:00; Stop 07/08/17 at 06 :00; Status DC Levofloxacin (Levaquin) 500 mg Q48H PO Last administered on 07/07/17 06:32; Start 07/07/17 at 06:00 Amoxicillin/ Clavulanate Potassium (Augmentin 500/ 125mg) 1 tab DAILY PO Last administered on 07/07/17 08:31; Start 07/07/17 at 09:00 Magnesium Sulfate/ Dextrose 50 ml @ 25 mls/hr PRN DAILY PRN IV for Mag < 1.7 on am labs; Start 07/07/17 at 10:45 Darbepoetin Yeison (Aranesp) 60 mcg WEEKLYHS SQ ; Start 07/07/17 at 21:00 Active Scripts Active Novolog Flexpen (Insulin Aspart) 100 Unit/1 Ml Insuln.pen 0 Units SQ TIDWMEALS 30 Days Hydrocodone-Apap 7.5-325 (Hydrocodone Bit/Acetaminophen) 1 Each Tablet 1 Tab PO PRN Q4HRS PRN 10 Days Children's Aspirin (Aspirin) 81 Mg Tab.chew 81 Mg PO DAILYWBKFT 30 Days Cozaar (Losartan Potassium) 50 Mg Tablet 100 Mg PO DAILY Reported Zofran Odt (Ondansetron) 4 Mg Tab.rapdis 1 Tab SL Q8HRS PRN Hydralazine Hcl 50 Mg Tablet 1 Tab PO TID Levemir (Insulin Detemir) 100 Unit/1 Ml Vial 7 Unit SQ HS Gabapentin 100 Mg Capsule 200 Mg PO BID Cetirizine Hcl 10 Mg Tablet 1 Tab PO DAILY Thera-M (Multivits,Th W-Fe,Other Min) 1 Each Tablet 1 Each PO DAILY Miralax (Polyethylene Glycol 3350) 17 Gm Powd.pack 1 Packet PO DAILY Colace (Docusate Sodium) 100 Mg Capsule 1 Cap PO DAILY Tylenol (Acetaminophen) 325 Mg Tablet 2 Tab PO PRN Q6HRS PRN Clonidine Hcl 0.1 Mg Tablet 0.1 Mg PO BID Alendronate Sodium 70 Mg Tablet 70 Mg PO WEEKLY Labetalol Hcl 200 Mg Tablet 2 Tab PO DAILY Flonase Allergy Relief (Fluticasone Propionate) 9.9 Ml [place].susp 2 Sprays NS DAILY Calcium 600 + Vit D 400 Caplet (Calcium Carbonate/Vitamin D3) 1 Each Tablet 1 Each PO DAILY Renvela (Sevelamer Carbonate) 800 Mg Tablet 2 Tab PO [id number] Norvasc (Amlodipine Besylate) 10 Mg Tablet 10 Mg PO DAILY Windy-Abby Rx Tablet (Vit B Cmplx 3/Fa/Vit C/Biotin) 1 Each Tablet 1 Each PO DAILY Prilosec (Omeprazole) 20 Mg Capsule.dr 20 Mg PO DAILY Vitals/I & O Vital Sign - Last 24 Hours 07/06/17 07/06/17 07/06/17 07/06/17 13:42 13:44 13:45 13:47 Pulse 83 83 83 83 B/P (MAP) 165/58 165/58 165/58 165/58 07/06/17 07/06/17 07/06/17 07/06/17 13:48 15:00 19:00 20:00 Temp 97.1 99.9 97.1 99.9 Pulse 83 70 77 Resp 17 18 B/P (MAP) 165/58 115/64 (81) 118/44 (68) Pulse Ox 98 95 O2 Delivery Nasal Cannula Nasal Cannula Nasal Cannula O2 Flow Rate 2.0 2.0 2.0 07/06/17 07/06/17 07/06/17 07/06/17 20:31 20:31 20:32 21:30 Pulse 77 77 Resp 17 16 B/P (MAP) 118/44 118/44 O2 Delivery Nasal Cannula Room Air O2 Flow Rate 2.0 07/06/17 07/07/17 07/07/17 07/07/17 23:00 03:00 07:00 08:15 Temp 98.4 98.2 97.7 98.4 98.2 97.7 Pulse 76 74 67 Resp 18 16 18 B/P (MAP) 134/52 (79) 137/60 (85) 134/59 (84) Pulse Ox 94 94 94 O2 Delivery Nasal Cannula Nasal Cannula O2 Flow Rate 2.0 2.0 07/07/17 07/07/17 07/07/17 07/07/17 08:29 08:30 08:31 08:31 Pulse 61 61 61 61 B/P (MAP) 134/59 134/59 134/59 134/59 07/07/17 07/07/17 08:33 10:30 Temp 96.5 96.5 Pulse 61 63 Resp 18 B/P (MAP) 134/59 105/38 (60) Pulse Ox 94 O2 Delivery Nasal Cannula O2 Flow Rate 2.0 Intake and Output 07/07/17 07/07/17 07/08/17 15:00 23:00 07:00 Intake Total 120 ml Balance 120 ml MARQUITA ELLIS MD Jul 07, 2017 12:45
[2017-07-07 12:55] LABS: BASO % 1 % (0-3); EOS % 3 % (0-3); HEMATOCRIT 31.6 % (36.0-47.0); HEMOGLOBIN 10.7 g/dL (12.0-15.5); LYMPH # 1.2 x10^3/uL (1.0-4.8); LYMPH % 17 % (24-48); MEAN CORPUSCULAR HEMOGLOBIN 33 pg (25-35); MEAN CORPUSCULAR HGB CONC 34 g/dL (31-37); MEAN CORPUSCULAR VOLUME 97 fL (79-100); MONO % 8 % (0-9); NEUT % 72 % (31-73); PLATELET COUNT 128 x10^3/uL (140-400); RED BLOOD COUNT 3.27 x10^6/uL (3.50-5.40); RED CELL DISTRIBUTION WIDTH 14.3 % (11.5-14.5); WHITE BLOOD COUNT 7.3 x10^3/uL (4.0-11.0)
--- NOTE | 2017-07-07 13:18 | PDOC ---
PULMONARY PROGRESS NOTES Subjective dysphagia to solids weak cough Vitals Vital Signs Date Time Temp Pulse Resp B/P (MAP) Pulse Ox O2 Delivery O2 Flow Rate FiO2 07/07/17 10:30 96.5 63 18 105/38 (60) 94 Nasal Cannula 2.0 96.5 General: Alert, Oriented X4, No acute distress Lungs: Other (decrease bases) Cardiovascular: S1, S2 Abdomen: Soft, Non-tender Extremities: No Edema Skin: Warm Labs Laboratory Tests Test 07/05/17 16:08 07/05/17 20:42 07/06/17 04:20 07/06/17 07:38 Glucose (Fingerstick) 114 mg/dL (70-99) 147 mg/dL (70-99) 51 mg/dL (70-99) Random Vancomycin Level 22.0 mcg/mL Test 07/06/17 08:06 07/06/17 13:30 07/06/17 16:58 07/06/17 20:35 Glucose (Fingerstick) 77 mg/dL (70-99) 103 mg/dL (70-99) 254 mg/dL (70-99) 86 mg/dL (70-99) Test 07/07/17 08:11 07/07/17 11:22 07/07/17 12:00 Glucose (Fingerstick) 148 mg/dL (70-99) 140 mg/dL (70-99) White Blood Count 7.3 x10^3/uL (4.0-11.0) Red Blood Count 3.27 x10^6/uL (3.50-5.40) Hemoglobin 10.7 g/dL (12.0-15.5) Hematocrit 31.6 % (36.0-47.0) Mean Corpuscular Volume 97 fL (79-100) Mean Corpuscular Hemoglobin 33 pg (25-35) Mean Corpuscular Hemoglobin Concent 34 g/dL (31-37) Red Cell Distribution Width 14.3 % (11.5-14.5) Platelet Count 128 x10^3/uL (140-400) Neutrophils (%) (Auto) 72 % (31-73) Lymphocytes (%) (Auto) 17 % (24-48) Monocytes (%) (Auto) 8 % (0-9) Eosinophils (%) (Auto) 3 % (0-3) Basophils (%) (Auto) 1 % (0-3) Neutrophils # (Auto) 5.2 x10^3uL (1.8-7.7) Lymphocytes # (Auto) 1.2 x10^3/uL (1.0-4.8) Monocytes # (Auto) 0.6 x10^3/uL (0.0-1.1) Eosinophils # (Auto) 0.2 x10^3/uL (0.0-0.7) Basophils # (Auto) 0.0 x10^3/uL (0.0-0.2) Prealbumin 15.8 mg/dL (16.0-42.0) Laboratory Tests Test 07/06/17 13:30 07/06/17 16:58 07/06/17 20:35 07/07/17 08:11 Glucose (Fingerstick) 103 mg/dL (70-99) 254 mg/dL (70-99) 86 mg/dL (70-99) 148 mg/dL (70-99) Test 07/07/17 11:22 07/07/17 12:00 Glucose (Fingerstick) 140 mg/dL (70-99) White Blood Count 7.3 x10^3/uL (4.0-11.0) Red Blood Count 3.27 x10^6/uL (3.50-5.40) Hemoglobin 10.7 g/dL (12.0-15.5) Hematocrit 31.6 % (36.0-47.0) Mean Corpuscular Volume 97 fL (79-100) Mean Corpuscular Hemoglobin 33 pg (25-35) Mean Corpuscular Hemoglobin Concent 34 g/dL (31-37) Red Cell Distribution Width 14.3 % (11.5-14.5) Platelet Count 128 x10^3/uL (140-400) Neutrophils (%) (Auto) 72 % (31-73) Lymphocytes (%) (Auto) 17 % (24-48) Monocytes (%) (Auto) 8 % (0-9) Eosinophils (%) (Auto) 3 % (0-3) Basophils (%) (Auto) 1 % (0-3) Neutrophils # (Auto) 5.2 x10^3uL (1.8-7.7) Lymphocytes # (Auto) 1.2 x10^3/uL (1.0-4.8) Monocytes # (Auto) 0.6 x10^3/uL (0.0-1.1) Eosinophils # (Auto) 0.2 x10^3/uL (0.0-0.7) Basophils # (Auto) 0.0 x10^3/uL (0.0-0.2) Prealbumin 15.8 mg/dL (16.0-42.0) Medications Active Scripts Medications Dose Route/Sig Max Daily Dose Days Date Category Zofran Odt (Ondansetron) 4 Mg Tab.rapdis 1 Tab SL Q8HRS PRN 07/04/17 Reported Hydralazine Hcl 50 Mg Tablet 1 Tab PO TID 04/08/17 Reported Levemir (Insulin Detemir) 100 Unit/1 Ml Vial 7 Unit SQ HS 04/08/17 Reported Gabapentin 100 Mg Capsule 200 Mg PO BID 04/08/17 Reported Cetirizine Hcl 10 Mg Tablet 1 Tab PO DAILY 10/29/16 Reported Thera-M (Multivits,Th W-Fe,Other Min) 1 Each Tablet 1 Each PO DAILY 10/29/16 Reported Miralax (Polyethylene Glycol 3350) 17 Gm Powd.pack 1 Packet PO DAILY 10/29/16 Reported Colace (Docusate Sodium) 100 Mg Capsule 1 Cap PO DAILY 10/29/16 Reported Tylenol (Acetaminophen) 325 Mg Tablet 2 Tab PO PRN Q6HRS PRN 10/29/16 Reported Novolog Flexpen (Insulin Aspart) 100 Unit/1 Ml Insuln.pen 0 Units SQ TIDWMEALS 30 09/20/16 Rx Hydrocodone-Apap 7.5-325 (Hydrocodone Bit/Acetaminophen) 1 Each Tablet 1 Tab PO PRN Q4HRS PRN 10 09/20/16 Rx Clonidine Hcl 0.1 Mg Tablet 0.1 Mg PO BID 09/17/16 Reported Alendronate Sodium 70 Mg Tablet 70 Mg PO WEEKLY 09/17/16 Reported Labetalol Hcl 200 Mg Tablet 2 Tab PO DAILY 09/17/16 Reported Flonase Allergy Relief (Fluticasone Propionate) 9.9 Ml [place].susp 2 Sprays NS DAILY 09/17/16 Reported Children's Aspirin (Aspirin) 81 Mg Tab.chew 81 Mg PO DAILYWBKFT 30 11/04/15 Rx Calcium 600 + Vit D 400 Caplet (Calcium Carbonate/Vitamin D3) 1 Each Tablet 1 Each PO DAILY 10/24/15 Reported Renvela (Sevelamer Carbonate) 800 Mg Tablet 2 Tab PO [id number] 12/21/14 Reported Cozaar (Losartan Potassium) 50 Mg Tablet 100 Mg PO DAILY 09/30/14 Rx Norvasc (Amlodipine Besylate) 10 Mg Tablet 10 Mg PO DAILY 11/11/13 Reported Windy-Abby Rx Tablet (Vit B Cmplx 3/Fa/Vit C/Biotin) 1 Each Tablet 1 Each PO DAILY 11/11/13 Reported Prilosec (Omeprazole) 20 Mg Capsule.dr 20 Mg PO DAILY 11/11/13 Reported Impression . 1. Abnormal chest x-ray with markedly elevated right hemidiaphragm which could be paralyzed and subdiaphragmatic infiltrate. There is mild patchy infiltrate left base. X-ray findings appear similar to the one from 06/15/2017. CT chest confirmed worsening infiltrates/ pneumonia RLL. 2. No significant history of tobacco use. 3. End-stage renal disease, on hemodialysis. Clinically, less likely congestive heart failure. 4. History of previous echocardiogram with normal ejection fraction and also previous left heart catheterization with mild coronary artery disease. 5. Dysphagia to solids/ has h/o Esophageal stricture and dilation. Needs re- eval/ suspect chronic aspiration Plan . 1. CT chest reviewed. 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 2. Continue antibiotics for now. 3. Dialysis per Renal. 4. Continue oxygen. 5. Monitor white cell count. 6. GI consult for possible dilation of esophagus d/w YONG Arita MD Jul 07, 2017 13:18
--- NOTE | 2017-07-07 13:39 | PDOC2 ---
GRISELDA AVILA 07/07/17 1339: GI CONSULT Reason For Consult: Esophageal narrowing HPI: HPI: 67 y/o female admitted w/ pneumonia. H/o dysphagia improved in the past w/ esophageal dilation by Dr. Howell. Symptoms recurred 2 days ago; solid foods stick in her esophagus. Decreased appetite recently, tolerating liquids/Boost. 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 PMH: PMH: CAD, CHF, HTN, HLD, pneumonia, peripheral neuropathy, TIA, GERD, anemia, cholelithiasis, depression, OA, bilateral foot drop, ESRD, UTI, ARPIT, DM, left ankle arthroscopy, cholecystectomy, , tonsillectomy, hysterectomy, LAV shunt, LHC/MOLDER INFLATED BALL bilateral renal arteries FH: Family History: Other (cirrhosis/hepatitis) Social History: Smoke: No ALCOHOL: none Drugs: None ROS: GEN: Denies fevers, chills, sweats HEENT: Denies blurred vision, sore throat CV: Denies chest pain RESP: +SOA GI: Per HPI : Denies hematuria, dysuria ENDO: Denies weight changes NEURO: Denies confusion, dizziness MSK: +weakness SKIN: Denies jaundice, pruritus Vitals: Vitals: Vital Signs Date Time Temp Pulse Resp B/P (MAP) Pulse Ox O2 Delivery O2 Flow Rate FiO2 07/07/17 10:30 96.5 63 18 105/38 (60) 94 Nasal Cannula 2.0 96.5 Labs: Labs: Laboratory Tests Test 07/06/17 16:58 07/06/17 20:35 07/07/17 08:11 07/07/17 11:22 Glucose (Fingerstick) 254 mg/dL (70-99) 86 mg/dL (70-99) 148 mg/dL (70-99) 140 mg/dL (70-99) Test 07/07/17 12:00 White Blood Count 7.3 x10^3/uL (4.0-11.0) Red Blood Count 3.27 x10^6/uL (3.50-5.40) Hemoglobin 10.7 g/dL (12.0-15.5) Hematocrit 31.6 % (36.0-47.0) Mean Corpuscular Volume 97 fL (79-100) Mean Corpuscular Hemoglobin 33 pg (25-35) Mean Corpuscular Hemoglobin Concent 34 g/dL (31-37) Red Cell Distribution Width 14.3 % (11.5-14.5) Platelet Count 128 x10^3/uL (140-400) Neutrophils (%) (Auto) 72 % (31-73) Lymphocytes (%) (Auto) 17 % (24-48) Monocytes (%) (Auto) 8 % (0-9) Eosinophils (%) (Auto) 3 % (0-3) Basophils (%) (Auto) 1 % (0-3) Neutrophils # (Auto) 5.2 x10^3uL (1.8-7.7) Lymphocytes # (Auto) 1.2 x10^3/uL (1.0-4.8) Monocytes # (Auto) 0.6 x10^3/uL (0.0-1.1) Eosinophils # (Auto) 0.2 x10^3/uL (0.0-0.7) Basophils # (Auto) 0.0 x10^3/uL (0.0-0.2) Prealbumin 15.8 mg/dL (16.0-42.0) Allergies: Coded Allergies: No Known Drug Allergies (Unverified , 11/01/16) Medications: Current Medications Medications (Trade) Dose Ordered Sig/Bill Route PRN Reason Start Time Stop Time Status Last Admin Dose Admin Levofloxacin (Levaquin) 500 mg Q48H PO 07/07/17 06:00 07/07/17 06:32 Amoxicillin/ Clavulanate Potassium (Augmentin 500/ 125mg) 1 tab DAILY PO 07/07/17 09:00 07/07/17 08:31 Imaging: Imaging: CT A/P w/o contrast 07/04/17 IMPRESSION: No acute or significant finding seen in the abdomen or pelvis. Infiltrate in the right lower lobe compatible with pneumonia. Small kidneys. Musculoskeletal changes, chronic. CT chest 07/06/17 There is mild calcific plaquing of the thoracic aorta and its branches. Several coronary artery calcifications are noted. The thoracic aorta is not dilated. The heart is mildly enlarged. There is a small amount of radiopaque material and gas in the esophagus. The radiopaque material may represent medication. The findings suggest reflux or poor esophageal peristalsis. There is a suggestion of a small hiatal hernia. There is mild chronic elevation of the right hemidiaphragm. There is moderate infiltrate in the right lower lobe. This is worsened since 07/04/2017. No significant infiltrate is seen in the right middle or upper lobes. There is thickening of the minor fissure on the right. Streaky left basilar opacities are similar to those seen on 11/21/2014 and are probably largely due to scarring. There are partially calcified nodules in the anterior aspect of the left lower lobe abutting the oblique fissure. These were also present on the previous study and show no definite change. No significant volume of pleural fluid is present on either side. There is severe bilateral renal atrophy and scarring. There is an old vertebral compression fracture at T12 with mild retropulsion of a fracture fragment. There are scattered degenerative changes in the spine. IMPRESSION: 1. Worsening moderate right lower lobe infiltrate compatible with pneumonia. 2. Mild chronic elevation of the right hemidiaphragm. 3. Fibrocalcific scarring in the left lower chest. 4. Mild cardiomegaly with calcific plaquing of the aorta and coronary arteries. 5. Small hiatal hernia. 6. Atrophic, scarred kidneys. PE: GEN: NAD, up to chair HEENT: Atraumatic, PERRL LUNGS: clear anteriorly HEART: RRR ABD: NABS, S/ND/NT EXTREMITY: No edema SKIN: No rashes, no jaundice NEURO/PSYCH: A & O 3 A/P: A/P: Dysphagia -history of this improved w/ previous dilation -recurred 2 days ago -CT chest: small amount of radiopaque material and gas in the esophagus (med vs reflux vs poor peristalsis), also note hiatal hernia Pneumonia ESRD -- Seen w/ Dr. Alvarenga. Will review records of previous 'scopes. 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 Continue treatment for pneumonia, consider EGD w/ dilation when improved (inpt or outpt). Continue PPI. ALANIS ALVARENGA MD 07/07/17 1342: GI CONSULT Allergies: Coded Allergies: No Known Drug Allergies (Unverified , 11/01/16) GRISELDA AVILA Jul 07, 2017 13:39 ALANIS ALVARENGA MD Jul 07, 2017 13:42
[2017-07-07 14:48] VITALS: BP 112/45
[2017-07-07 19:00] VITALS: BP 119/77
[2017-07-07] MEDS: INSULIN DETEMIR 300 UNITS/3 ML INSULN.PEN. SQ SCH (20:34)
[2017-07-07] MEDS ORDERED: DARBEPOETIN ALFA 60 MCG/0.3 ML DISP.SYRIN. SQ SCH (21:00)
[2017-07-07 22:47] VITALS: BP 117/52
[2017-07-08 03:00] VITALS: BP 135/44
[2017-07-08] MEDS: HYDROcodone/APAP 7.5/325MG 1 TAB TABLET PO PRN (04:32)
[2017-07-08] MEDS ORDERED: VANCOMYCIN RANDOM LEVEL. MC ONE (06:00)
[2017-07-08 06:06] LABS: ALBUMIN 2.3 g/dL (3.4-5.0); CREATININE 6.8 mg/dL (0.6-1.0); POTASSIUM 5.3 mmol/L (3.5-5.1)
[2017-07-08 07:30] VITALS: BP 132/53
[2017-07-08] MEDS: INSULIN ASPART 300 UNITS/3 ML INSULN.PEN SQ SCH ×4 (07:30→22:41)
[2017-07-08] MEDS ORDERED: IV NORMAL SALINE 1000ML BAG 1,000 ML IV PRN ×2 (07:59)
[2017-07-08] MEDS ORDERED: diphenhydrAMINE 50 MG/ML VIAL IV PRN ×2 (08:00)
[2017-07-08] MEDS ORDERED: DIALYSIS PATIENT. MC PRN (08:00)
[2017-07-08] MEDS: PANTOPRAZOLE 40 MG TABLET.DR. PO SCH (08:06)
[2017-07-08] MEDS: CALCIUM ACETATE 667 MG CAPSULE PO SCH ×3 (08:06→17:02)
[2017-07-08] MEDS: ASPIRIN CHEWABLE 81 MG TABLET. PO SCH (08:07)
[2017-07-08] MEDS: POLYETHYLENE GLYCOL 3350 17 GM PACKET. PO SCH ×2 (09:00→12:50)
--- NOTE | 2017-07-08 09:24 | PDOC ---
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7 g/dL (12.0-15.5) Hematocrit 31.6 % (36.0-47.0) Mean Corpuscular Volume 97 fL (79-100) Mean Corpuscular Hemoglobin 33 pg (25-35) Mean Corpuscular Hemoglobin Concent 34 g/dL (31-37) Red Cell Distribution Width 14.3 % (11.5-14.5) Platelet Count 128 x10^3/uL (140-400) Neutrophils (%) (Auto) 72 % (31-73) Lymphocytes (%) (Auto) 17 % (24-48) Monocytes (%) (Auto) 8 % (0-9) Eosinophils (%) (Auto) 3 % (0-3) Basophils (%) (Auto) 1 % (0-3) Neutrophils # (Auto) 5.2 x10^3uL (1.8-7.7) Lymphocytes # (Auto) 1.2 x10^3/uL (1.0-4.8) Monocytes # (Auto) 0.6 x10^3/uL (0.0-1.1) Eosinophils # (Auto) 0.2 x10^3/uL (0.0-0.7) Basophils # (Auto) 0.0 x10^3/uL (0.0-0.2) Prealbumin 15.8 mg/dL (16.0-42.0) Test 07/08/17 04:50 07/08/17 07:47 Hemoglobin 10.5 g/dL (12.0-15.5) Sodium Level 138 mmol/L (136-145) Potassium Level 5.3 mmol/L (3.5-5.1) Chloride Level 101 mmol/L (98-107) Carbon Dioxide Level 29 mmol/L (21-32) Anion Gap 8 (6-14) Blood Urea Nitrogen 63 mg/dL (7-20) Creatinine 6.8 mg/dL (0.6-1.0) Estimated GFR (Cockcroft-Gault) 6.0 Glucose Level 151 mg/dL (70-99) Calcium Level 9.0 mg/dL (8.5-10.1) Phosphorus Level 3.0 mg/dL (2.6-4.7) Magnesium Level 2.0 mg/dL (1.8-2.4) Albumin 2.3 g/dL (3.4-5.0) Glucose (Fingerstick) 125 mg/dL (70-99) Laboratory Tests Test 07/07/17 11:22 07/07/17 12:00 07/07/17 16:36 07/07/17 20:43 Glucose (Fingerstick) 140 mg/dL (70-99) 205 mg/dL (70-99) 121 mg/dL (70-99) White Blood Count 7.3 x10^3/uL (4.0-11.0) Red Blood Count 3.27 x10^6/uL (3.50-5.40) Hemoglobin 10.7 g/dL (12.0-15.5) Hematocrit 31.6 % (36.0-47.0) Mean Corpuscular Volume 97 fL (79-100) Mean Corpuscular Hemoglobin 33 pg (25-35) Mean Corpuscular Hemoglobin Concent 34 g/dL (31-37) Red Cell Distribution Width 14.3 % (11.5-14.5) Platelet Count 128 x10^3/uL (140-400) Neutrophils (%) (Auto) 72 % (31-73) Lymphocytes (%) (Auto) 17 % (24-48) Monocytes (%) (Auto) 8 % (0-9) Eosinophils (%) (Auto) 3 % (0-3) Basophils (%) (Auto) 1 % (0-3) Neutrophils # (Auto) 5.2 x10^3uL (1.8-7.7) Lymphocytes # (Auto) 1.2 x10^3/uL (1.0-4.8) Monocytes # (Auto) 0.6 x10^3/uL (0.0-1.1) Eosinophils # (Auto) 0.2 x10^3/uL (0.0-0.7) Basophils # (Auto) 0.0 x10^3/uL (0.0-0.2) Prealbumin 15.8 mg/dL (16.0-42.0) Test 07/08/17 04:50 07/08/17 07:47 Hemoglobin 10.5 g/dL (12.0-15.5) Sodium Level 138 mmol/L (136-145) Potassium Level 5.3 mmol/L (3.5-5.1) Chloride Level 101 mmol/L (98-107) Carbon Dioxide Level 29 mmol/L (21-32) Anion Gap 8 (6-14) Blood Urea Nitrogen 63 mg/dL (7-20) Creatinine 6.8 mg/dL (0.6-1.0) Estimated GFR (Cockcroft-Gault) 6.0 Glucose Level 151 mg/dL (70-99) Calcium Level 9.0 mg/dL (8.5-10.1) Phosphorus Level 3.0 mg/dL (2.6-4.7) Magnesium Level 2.0 mg/dL (1.8-2.4) Albumin 2.3 g/dL (3.4-5.0) Glucose (Fingerstick) 125 mg/dL (70-99) GÓMEZ REAVES MD Jul 08, 2017 09:24
[2017-07-08] MEDS ORDERED: ALBUMIN HUMAN 25% 200 ML IV ONE (09:30)
--- NOTE | 2017-07-08 09:50 | PDOC ---
Subjective: Subjective: Had difficulty w/ solids last night but tolerated breakfast this morning. No n/v. Perhaps some heartburn. BM yesterday - "splattered." Asks about removing stitches in her arm (placed as outpt at [facility]). Coughing up yellow phlegm. Objective: Objective: Told RN she felt better than yesterday. Vital Signs: Vital Signs Date Time Temp Pulse Resp B/P (MAP) Pulse Ox O2 Delivery O2 Flow Rate FiO2 07/08/17 07:30 98.1 72 18 132/53 (79) 95 Nasal Cannula 1.5 98.1 Labs: Laboratory Tests Test 07/07/17 11:22 07/07/17 12:00 07/07/17 16:36 07/07/17 20:43 Glucose (Fingerstick) 140 mg/dL 205 mg/dL 121 mg/dL White Blood Count 7.3 x10^3/uL Red Blood Count 3.27 x10^6/uL Hemoglobin 10.7 g/dL Hematocrit 31.6 % Mean Corpuscular Volume 97 fL Mean Corpuscular Hemoglobin 33 pg Mean Corpuscular Hemoglobin Concent 34 g/dL Red Cell Distribution Width 14.3 % Platelet Count 128 x10^3/uL Neutrophils (%) (Auto) 72 % Lymphocytes (%) (Auto) 17 % Monocytes (%) (Auto) 8 % Eosinophils (%) (Auto) 3 % Basophils (%) (Auto) 1 % Neutrophils # (Auto) 5.2 x10^3uL Lymphocytes # (Auto) 1.2 x10^3/uL Monocytes # (Auto) 0.6 x10^3/uL Eosinophils # (Auto) 0.2 x10^3/uL Basophils # (Auto) 0.0 x10^3/uL Prealbumin 15.8 mg/dL Test 07/08/17 04:50 07/08/17 07:47 Hemoglobin 10.5 g/dL Sodium Level 138 mmol/L Potassium Level 5.3 mmol/L Chloride Level 101 mmol/L Carbon Dioxide Level 29 mmol/L Anion Gap 8 Blood Urea Nitrogen 63 mg/dL Creatinine 6.8 mg/dL Estimated GFR (Cockcroft-Gault) 6.0 Glucose Level 151 mg/dL Calcium Level 9.0 mg/dL Phosphorus Level 3.0 mg/dL Magnesium Level 2.0 mg/dL Albumin 2.3 g/dL Glucose (Fingerstick) 125 mg/dL Imaging: Speech Path 07/07/17 Order received for swallow eval. Upon d/w pt re:hx, she stated food "sticks" and pointed to upper cervical esophagus and sternal area. Witnessed pt drinking thin liquid via straw w/o s/s aspiration. Pt states liquids are easiest "but I don't want to just drink liquid." Pt stated she has undergone esophageal dilation previously w/Dr Howell. PLAN: Dr Avina in and involved in above discussion. Dr Avina requested RN consult GI. No further [employer]BI[employer]IST intervention planned at this time. Re-consult if s/s do not resolve p. GI intervention. PE: GEN: NAD, in dialysis LUNGS: diminished anteriorly HEART: RRR ABD: BS+, vague RLQ discomfort NEURO/PSYCH: A & O 3 A/P: Dysphagia -intermittently w/ solids and pills, no issue w/ liquids -previously improved w/ dilation, last in 02/2013 w/ Dr. Howell (upper esophageal stenosis) -h/o GERD, previous biopsies neg for Jiang's, prior to admission was on omeprazole 20mg QD (although advised to increase to 40mg QD in 12/2016), on pantoprazole 40mg QD here -CT chest: small amount of radiopaque material and gas in the esophagus (med vs reflux vs poor peristalsis), also note hiatal hernia Irregular bowel habits -last colonoscopy 02/2011: adenomatous polyp in the descending colon, spasm in sigmoid colon, and internal hemorrhoids -has Miralax Pneumonia -per pulm -increased phlegm today (?contributes to dysphagia) ESRD on HD per renal -- Had EGD/colon scheduled w/ Dr. Howell in 01/2017, cancelled ---> she plans to reschedule this as outpt. Can pursue esophageal dilation at that time when pneumonia resolved. GRISELDA AVILA Jul 08, 2017 09:50
--- NOTE | 2017-07-08 10:44 | PDOC ---
PULMONARY PROGRESS NOTES Subjective dysphagia to solids weak cough Vitals Vital Signs Date Time Temp Pulse Resp B/P (MAP) Pulse Ox O2 Delivery O2 Flow Rate FiO2 07/08/17 08:30 Nasal Cannula 1.5 07/08/17 07:30 98.1 72 18 132/53 (79) 95 98.1 General: Alert, Oriented X4, No acute distress Lungs: Other (decrease bases) Cardiovascular: S1, S2 Abdomen: Soft, Non-tender Extremities: No Edema Skin: Warm Labs Laboratory Tests Test 07/06/17 13:30 07/06/17 16:58 07/06/17 20:35 07/07/17 08:11 Glucose (Fingerstick) 103 mg/dL (70-99) 254 mg/dL (70-99) 86 mg/dL (70-99) 148 mg/dL (70-99) Test 07/07/17 11:22 07/07/17 12:00 07/07/17 16:36 07/07/17 20:43 Glucose (Fingerstick) 140 mg/dL (70-99) 205 mg/dL (70-99) 121 mg/dL (70-99) White Blood Count 7.3 x10^3/uL (4.0-11.0) Red Blood Count 3.27 x10^6/uL (3.50-5.40) Hemoglobin 10.7 g/dL (12.0-15.5) Hematocrit 31.6 % (36.0-47.0) Mean Corpuscular Volume 97 fL (79-100) Mean Corpuscular Hemoglobin 33 pg (25-35) Mean Corpuscular Hemoglobin Concent 34 g/dL (31-37) Red Cell Distribution Width 14.3 % (11.5-14.5) Platelet Count 128 x10^3/uL (140-400) Neutrophils (%) (Auto) 72 % (31-73) Lymphocytes (%) (Auto) 17 % (24-48) Monocytes (%) (Auto) 8 % (0-9) Eosinophils (%) (Auto) 3 % (0-3) Basophils (%) (Auto) 1 % (0-3) Neutrophils # (Auto) 5.2 x10^3uL (1.8-7.7) Lymphocytes # (Auto) 1.2 x10^3/uL (1.0-4.8) Monocytes # (Auto) 0.6 x10^3/uL (0.0-1.1) Eosinophils # (Auto) 0.2 x10^3/uL (0.0-0.7) Basophils # (Auto) 0.0 x10^3/uL (0.0-0.2) Prealbumin 15.8 mg/dL (16.0-42.0) Test 07/08/17 04:50 07/08/17 07:47 Hemoglobin 10.5 g/dL (12.0-15.5) Sodium Level 138 mmol/L (136-145) Potassium Level 5.3 mmol/L (3.5-5.1) Chloride Level 101 mmol/L (98-107) Carbon Dioxide Level 29 mmol/L (21-32) Anion Gap 8 (6-14) Blood Urea Nitrogen 63 mg/dL (7-20) Creatinine 6.8 mg/dL (0.6-1.0) Estimated GFR (Cockcroft-Gault) 6.0 Glucose Level 151 mg/dL (70-99) Calcium Level 9.0 mg/dL (8.5-10.1) Phosphorus Level 3.0 mg/dL (2.6-4.7) Magnesium Level 2.0 mg/dL (1.8-2.4) Albumin 2.3 g/dL (3.4-5.0) Glucose (Fingerstick) 125 mg/dL (70-99) Laboratory Tests Test 07/07/17 11:22 07/07/17 12:00 07/07/17 16:36 07/07/17 20:43 Glucose (Fingerstick) 140 mg/dL (70-99) 205 mg/dL (70-99) 121 mg/dL (70-99) White Blood Count 7.3 x10^3/uL (4.0-11.0) Red Blood Count 3.27 x10^6/uL (3.50-5.40) Hemoglobin 10.7 g/dL (12.0-15.5) Hematocrit 31.6 % (36.0-47.0) Mean Corpuscular Volume 97 fL (79-100) Mean Corpuscular Hemoglobin 33 pg (25-35) Mean Corpuscular Hemoglobin Concent 34 g/dL (31-37) Red Cell Distribution Width 14.3 % (11.5-14.5) Platelet Count 128 x10^3/uL (140-400) Neutrophils (%) (Auto) 72 % (31-73) Lymphocytes (%) (Auto) 17 % (24-48) Monocytes (%) (Auto) 8 % (0-9) Eosinophils (%) (Auto) 3 % (0-3) Basophils (%) (Auto) 1 % (0-3) Neutrophils # (Auto) 5.2 x10^3uL (1.8-7.7) Lymphocytes # (Auto) 1.2 x10^3/uL (1.0-4.8) Monocytes # (Auto) 0.6 x10^3/uL (0.0-1.1) Eosinophils # (Auto) 0.2 x10^3/uL (0.0-0.7) Basophils # (Auto) 0.0 x10^3/uL (0.0-0.2) Prealbumin 15.8 mg/dL (16.0-42.0) Test 07/08/17 04:50 07/08/17 07:47 Hemoglobin 10.5 g/dL (12.0-15.5) Sodium Level 138 mmol/L (136-145) Potassium Level 5.3 mmol/L (3.5-5.1) Chloride Level 101 mmol/L (98-107) Carbon Dioxide Level 29 mmol/L (21-32) Anion Gap 8 (6-14) Blood Urea Nitrogen 63 mg/dL (7-20) Creatinine 6.8 mg/dL (0.6-1.0) Estimated GFR (Cockcroft-Gault) 6.0 Glucose Level 151 mg/dL (70-99) Calcium Level 9.0 mg/dL (8.5-10.1) Phosphorus Level 3.0 mg/dL (2.6-4.7) Magnesium Level 2.0 mg/dL (1.8-2.4) Albumin 2.3 g/dL (3.4-5.0) Glucose (Fingerstick) 125 mg/dL (70-99) Medications Active Scripts Medications Dose Route/Sig Max Daily Dose Days Date Category Zofran Odt (Ondansetron) 4 Mg Tab.rapdis 1 Tab SL Q8HRS PRN 07/04/17 Reported Hydralazine Hcl 50 Mg Tablet 1 Tab PO TID 04/08/17 Reported Levemir (Insulin Detemir) 100 Unit/1 Ml Vial 7 Unit SQ HS 04/08/17 Reported Gabapentin 100 Mg Capsule 200 Mg PO BID 04/08/17 Reported Cetirizine Hcl 10 Mg Tablet 1 Tab PO DAILY 10/29/16 Reported Thera-M (Multivits,Th W-Fe,Other Min) 1 Each Tablet 1 Each PO DAILY 10/29/16 Reported Miralax (Polyethylene Glycol 3350) 17 Gm Powd.pack 1 Packet PO DAILY 10/29/16 Reported Colace (Docusate Sodium) 100 Mg Capsule 1 Cap PO DAILY 10/29/16 Reported Tylenol (Acetaminophen) 325 Mg Tablet 2 Tab PO PRN Q6HRS PRN 10/29/16 Reported Novolog Flexpen (Insulin Aspart) 100 Unit/1 Ml Insuln.pen 0 Units SQ TIDWMEALS 30 09/20/16 Rx Hydrocodone-Apap 7.5-325 (Hydrocodone Bit/Acetaminophen) 1 Each Tablet 1 Tab PO PRN Q4HRS PRN 10 09/20/16 Rx Clonidine Hcl 0.1 Mg Tablet 0.1 Mg PO BID 09/17/16 Reported Alendronate Sodium 70 Mg Tablet 70 Mg PO WEEKLY 09/17/16 Reported Labetalol Hcl 200 Mg Tablet 2 Tab PO DAILY 09/17/16 Reported Flonase Allergy Relief (Fluticasone Propionate) 9.9 Ml [place].susp 2 Sprays NS DAILY 09/17/16 Reported Children's Aspirin (Aspirin) 81 Mg Tab.chew 81 Mg PO DAILYWBKFT 30 11/04/15 Rx Calcium 600 + Vit D 400 Caplet (Calcium Carbonate/Vitamin D3) 1 Each Tablet 1 Each PO DAILY 10/24/15 Reported Renvela (Sevelamer Carbonate) 800 Mg Tablet 2 Tab PO [id number] 12/21/14 Reported Cozaar (Losartan Potassium) 50 Mg Tablet 100 Mg PO DAILY 09/30/14 Rx Norvasc (Amlodipine Besylate) 10 Mg Tablet 10 Mg PO DAILY 11/11/13 Reported [facility]y-Abby Rx Tablet (Vit B Cmplx 3/Fa/Vit C/Biotin) 1 Each Tablet 1 Each PO DAILY 11/11/13 Reported Prilosec (Omeprazole) 20 Mg Capsule.dr 20 Mg PO DAILY 11/11/13 Reported Impression . 1. Abnormal chest x-ray with markedly elevated right hemidiaphragm which could be paralyzed and subdiaphragmatic infiltrate. There is mild patchy infiltrate left base. CT chest confirmed worsening infiltrates/pneumonia RLL. 2. No significant history of tobacco use. 3. End-stage renal disease, on hemodialysis. Clinically, less likely congestive heart failure. 4. History of previous echocardiogram with normal ejection fraction and also previous left heart catheterization with mild coronary artery disease. 5. Dysphagia to solids/ has h/o Esophageal stricture and dilation. Needs re- eval/ suspect chronic aspiration Plan . 1. CT chest reviewed. 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 2. Continue antibiotics for now.clinically responding. wbc normal now 3. Dialysis per Renal. 4. Continue oxygen. 5. Monitor white cell count. 6. GI consulted for possible dilation of esophagus. EGD later d/w speech YONG WAGNER MD Jul 08, 2017 10:44
[2017-07-08] MEDS: FLUTICASONE 50MCG/NASAL SPRAY 16GM BOTTLE. NS SCH (12:46)
[2017-07-08] MEDS: AMOXICILLIN/K CLAV 500/125MG TABLET. PO SCH (12:47)
[2017-07-08] MEDS: FOLIC/VIT B COMP W-C (RENAL) TABLET. PO SCH (12:47)
[2017-07-08] MEDS: CETIRIZINE HCL 10 MG TABLET. PO SCH (12:47)
[2017-07-08] MEDS: MULTIVITAMIN with MINERAL TABLET. PO SCH (12:47)
[2017-07-08] MEDS: GABAPENTIN 100 MG CAPSULE. PO SCH ×2 (12:47→22:28)
[2017-07-08] MEDS: LOSARTAN POTASSIUM 50 MG TABLET. PO SCH (12:48)
[2017-07-08] MEDS: cloNIDine HCL 0.1 MG TABLET PO SCH ×2 (12:48→22:28)
[2017-07-08] MEDS: DOCUSATE SODIUM 100 MG CAPSULE. PO SCH (12:49)
[2017-07-08] MEDS: LABETALOL HCL 200 MG TABLET PO SCH (12:49)
[2017-07-08] MEDS: amLODIPine BESYLATE 10 MG TABLET PO SCH (12:50)
[2017-07-08] MEDS: ONDANSETRON ODT 4 MG TAB.RAPDIS. PO PRN ×2 (14:11→22:28)
--- NOTE | 2017-07-08 16:37 | PDOC ---
PROGRESS NOTES Subjective Subjective Patient improving from pneumonia. Patient having dysphasia with suspected esophageal stricture. Patient also having continued visual hallucinations. Objective Objective Vital Signs Date Time Temp Pulse Resp B/P (MAP) Pulse Ox O2 Delivery O2 Flow Rate FiO2 07/08/17 12:50 87 155/42 07/08/17 08:30 Nasal Cannula 1.5 07/08/17 07:30 98.1 18 95 98.1 Intake and Output 07/09/17 07:00 Intake Total 180 ml Balance 180 ml Intake Oral 180 ml # Bowel Movements 1 Physical Exam Abdomen: Normal bowel sounds Heart: Regular rate Extremities: No edema General: Alert Lungs: Clear to auscultation (coarse breath sounds basis) Assessment Assessment Healthcare acquired pneumonia. End-stage renal disease on dialysis. Type 2 diabetes. Hospital induce psychosis. Possible delirium with hallucinations Dysphagia PAST MEDICAL HISTORY INCLUDE: 1. End-stage renal disease. 2. Hypertension. 3. High cholesterol. 4. Type 2 diabetes. 5. Diabetic neuropathy. 6. Diabetic retinopathy. 7. Lumbar spinal stenosis. 8. Osteoporosis. 9. Drop foot. Plan Plan of Care Continue pulmonary toilet. Consider neurology evaluation and CT brain if hallucinations continue EGD with dilatation if hospitalization continues to Tuesday. Mechanical soft diet Continue PT and OT modalities Comment Review of Relevant I have reviewed the following items cosmo (where applicable) has been applied. Labs Laboratory Tests Test 07/06/17 16:58 07/06/17 20:35 07/07/17 08:11 07/07/17 11:22 Glucose (Fingerstick) 254 mg/dL (70-99) 86 mg/dL (70-99) 148 mg/dL (70-99) 140 mg/dL (70-99) Test 07/07/17 12:00 07/07/17 16:36 07/07/17 20:43 07/08/17 04:50 White Blood Count 7.3 x10^3/uL (4.0-11.0) Red Blood Count 3.27 x10^6/uL (3.50-5.40) Hemoglobin 10.7 g/dL (12.0-15.5) 10.5 g/dL (12.0-15.5) Hematocrit 31.6 % (36.0-47.0) Mean Corpuscular Volume 97 fL (79-100) Mean Corpuscular Hemoglobin 33 pg (25-35) Mean Corpuscular Hemoglobin Concent 34 g/dL (31-37) Red Cell Distribution Width 14.3 % (11.5-14.5) Platelet Count 128 x10^3/uL (140-400) Neutrophils (%) (Auto) 72 % (31-73) Lymphocytes (%) (Auto) 17 % (24-48) Monocytes (%) (Auto) 8 % (0-9) Eosinophils (%) (Auto) 3 % (0-3) Basophils (%) (Auto) 1 % (0-3) Neutrophils # (Auto) 5.2 x10^3uL (1.8-7.7) Lymphocytes # (Auto) 1.2 x10^3/uL (1.0-4.8) Monocytes # (Auto) 0.6 x10^3/uL (0.0-1.1) Eosinophils # (Auto) 0.2 x10^3/uL (0.0-0.7) Basophils # (Auto) 0.0 x10^3/uL (0.0-0.2) Prealbumin 15.8 mg/dL (16.0-42.0) Glucose (Fingerstick) 205 mg/dL (70-99) 121 mg/dL (70-99) Sodium Level 138 mmol/L (136-145) Potassium Level 5.3 mmol/L (3.5-5.1) Chloride Level 101 mmol/L (98-107) Carbon Dioxide Level 29 mmol/L (21-32) Anion Gap 8 (6-14) Blood Urea Nitrogen 63 mg/dL (7-20) Creatinine 6.8 mg/dL (0.6-1.0) Estimated GFR (Cockcroft-Gault) 6.0 Glucose Level 151 mg/dL (70-99) Calcium Level 9.0 mg/dL (8.5-10.1) Phosphorus Level 3.0 mg/dL (2.6-4.7) Magnesium Level 2.0 mg/dL (1.8-2.4) Albumin 2.3 g/dL (3.4-5.0) Test 07/08/17 07:47 Glucose (Fingerstick) 125 mg/dL (70-99) Laboratory Tests Test 07/07/17 16:36 07/07/17 20:43 07/08/17 04:50 07/08/17 07:47 Glucose (Fingerstick) 205 mg/dL (70-99) 121 mg/dL (70-99) 125 mg/dL (70-99) Hemoglobin 10.5 g/dL (12.0-15.5) Sodium Level 138 mmol/L (136-145) Potassium Level 5.3 mmol/L (3.5-5.1) Chloride Level 101 mmol/L (98-107) Carbon Dioxide Level 29 mmol/L (21-32) Anion Gap 8 (6-14) Blood Urea Nitrogen 63 mg/dL (7-20) Creatinine 6.8 mg/dL (0.6-1.0) Estimated GFR (Cockcroft-Gault) 6.0 Glucose Level 151 mg/dL (70-99) Calcium Level 9.0 mg/dL (8.5-10.1) Phosphorus Level 3.0 mg/dL (2.6-4.7) Magnesium Level 2.0 mg/dL (1.8-2.4) Albumin 2.3 g/dL (3.4-5.0) Medications Current Medications Sodium Chloride 250 ml @ 0 mls/hr 1X ONCE IV Last administered on 07/04/17 13 :49; Start 07/04/17 at 13:45; Stop 07/04/17 at 13:46; Status DC Ondansetron HCl (Zofran) 4 mg 1X ONCE IV Last administered on 07/04/17 13:49 ; Start 07/04/17 at 13:45; Stop 07/04/17 at 13:46; Status DC Ondansetron HCl (Zofran) 4 mg PRN Q8HRS PRN IV NAUSEA/VOMITING; Start 07/04/17 at 15:00; Stop 07/05/17 at 14:59; Status DC Fentanyl Citrate (Fentanyl 2ml Vial) 25 mcg PRN Q2HR PRN IV PAIN; Start at 15:00; Stop 07/05/17 at 14:59; Status DC Acetaminophen (Tylenol) 650 mg PRN Q4HRS PRN PO FEVER; Start 07/04/17 at 15:00 ; Stop 07/05/17 at 12:40; Status DC Vancomycin HCl (Vanco Per Pharmacy) 1 each PRN DAILY PRN MC SEE COMMENTS Last administered on 07/06/17 12:20; Start 07/04/17 at 15:00; Stop 07/06/17 at 13:24 ; Status DC Piperacillin Sod/ Tazobactam Sod (Zosyn Per Pharmacy) 1 each PRN DAILY PRN MC SEE COMMENTS; Start 07/04/17 at 15:00; Stop 07/04/17 at 16:08; Status DC Levofloxacin/ Dextrose (Levaquin Per Pharmacy) 1 each PRN DAILY PRN MC SEE COMMENTS; Start 07/04/17 at 15:00; Stop 07/06/17 at 13:24; Status DC Vancomycin HCl 1.5 gm/Sodium Chloride 500 ml @ 250 mls/hr 1X ONCE IV Last administered on 07/04/17 17:53; Start 07/04/17 at 15:15; Stop 07/04/17 at 17:14 ; Status DC Levofloxacin/ Dextrose 150 ml @ 100 mls/hr 1X ONCE IV Last administered on 20:47; Start 07/04/17 at 15:15; Stop 07/04/17 at 16:44; Status DC Piperacillin Sod/ Tazobactam Sod 2.25 gm/Sodium Chloride 50 ml @ 100 mls/hr 1X ONCE IV Last administered on 07/04/17 15:22; Start 07/04/17 at 15:15; Stop 07/04/17 at 15:44; Status DC Piperacillin Sod/ Tazobactam Sod 2.25 gm/Sodium Chloride 50 ml @ 100 mls/hr Q8HRS IV Last administered on 07/06/17 05:13; Start 07/04/17 at 22:00; Stop at 13:24; Status DC Levofloxacin/ Dextrose 100 ml @ 100 mls/hr Q48H IV ; Start 07/06/17 at 17:00; Stop 07/06/17 at 17:00; Status DC Vancomycin HCl 1 each 1X ONCE MC ; Start 07/06/17 at 05:00; Stop 07/06/17 at 13 :24; Status DC Acetaminophen (Tylenol) 650 mg PRN Q6HRS PRN PO MILD PAIN; Start 07/04/17 at 20 :15 Amlodipine Besylate (Norvasc) 10 mg DAILY PO Last administered on 07/08/17 12: 50; Start 07/05/17 at 09:00 Aspirin (Children'S Aspirin) 81 mg DAILYWBKFT PO Last administered on 08:07; Start 07/05/17 at 08:00 Cetirizine HCl (ZyrTEC) 10 mg DAILY PO Last administered on 07/08/17 12:47; Start 07/05/17 at 09:00 Clonidine HCl (Catapres) 0.1 mg BID PO Last administered on 07/08/17 12:48; Start 07/04/17 at 21:00 Docusate Sodium (Colace) 100 mg DAILY PO Last administered on 07/08/17 12:49; Start 07/05/17 at 09:00 Gabapentin (Neurontin) 200 mg BID PO Last administered on 07/08/17 12:47; Start 07/04/17 at 21:00 Hydralazine HCl (Apresoline) 50 mg TID PO Last administered on 07/08/17 12:50 ; Start 07/04/17 at 21:00 Acetaminophen/ Hydrocodone Bitart (Lortab 7.5/325) 1 tab PRN Q4HRS PRN PO PAIN Last administered on 07/08/17 04:32; Start 07/04/17 at 20:15 Insulin Aspart (NovoLOG) TIDWMEALS SQ ; Start 07/04/17 at 21:00; Stop 07/04/17 at 21:00; Status DC Labetalol HCl (Trandate) 400 mg DAILY PO Last administered on 07/08/17 12:49; Start 07/05/17 at 09:00 Losartan Potassium (Cozaar) 100 mg DAILY PO Last administered on 07/08/17 12: 48; Start 07/05/17 at 09:00 Polyethylene Glycol (miraLAX PACKET) 17 gm DAILY PO Last administered on 12:50; Start 07/05/17 at 09:00 Sevelamer Carbonate (Renvela) 1,600 mg TIDWMEALS PO Last administered on 08:45; Start 07/04/17 at 21:00; Stop 07/05/17 at 11:08; Status DC Fluticasone Propionate (Flonase) 2 spray DAILY NS Last administered on 12:46; Start 07/05/17 at 09:00 Insulin Detemir (Levemir) 7 units QHS SQ Last administered on 07/07/17 20:34; Start 07/04/17 at 21:00 Multivitamins (Thera M Plus) 1 tab DAILY PO Last administered on 07/08/17 12: 47; Start 07/05/17 at 09:00 Pantoprazole Sodium (Protonix) 40 mg DAILYAC PO Last administered on 07/08/17 08:06; Start 07/05/17 at 07:30 Ondansetron HCl (Zofran Odt) 4 mg Q8HRS PO ; Start 07/04/17 at 22:00; Stop 07/04 at 22:00; Status DC Vitamin B Complex/ Vitamin C ([place]indy-Abby) 1 tab DAILY PO Last administered on 12:47; Start 07/05/17 at 09:00 Insulin Aspart (NovoLOG) 0-12 UNITS QIDACHS SQ Last administered on 07/07/17 17:06; Start 07/04/17 at 21:00 Ondansetron HCl (Zofran Odt) 4 mg PRN Q8HRS PRN PO NAUSEA/VOMITING Last administered on 07/08/17 14:11; Start 07/04/17 at 21:00 Calcium Acetate (Phoslo) 1,334 mg TIDWMEALS PO Last administered on 07/08/17 12:46; Start 07/05/17 at 12:00 Paricalcitol (Zemplar) 5 mcg 1X ONCE IV Last administered on 07/05/17 11:59; Start 07/05/17 at 11:30; Stop 07/05/17 at 11:31; Status DC Sodium Chloride 1,000 ml @ 1,000 mls/hr Q1H PRN IV hypotension; Start 07/06/17 at 10:01; Stop 07/06/17 at 13:24; Status DC Sodium Chloride 1,000 ml @ 400 mls/hr Q2H30M PRN IV PATENCY; Start 07/06/17 at 10:01; Stop 07/06/17 at 13:24; Status DC Info (PHARMACY MONITORING -- do not chart) 1 each PRN DAILY PRN MC SEE COMMENTS ; Start 07/06/17 at 10:15 Info (PHARMACY MONITORING -- do not chart) 1 each PRN DAILY PRN MC SEE COMMENTS ; Start 07/06/17 at 10:15; Status UNV Vancomycin HCl 1 each 1X ONCE MC ; Start 07/08/17 at 06:00; Stop 07/08/17 at 06 :00; Status DC Levofloxacin (Levaquin) 500 mg Q48H PO Last administered on 07/07/17 06:32; Start 07/07/17 at 06:00 Amoxicillin/ Clavulanate Potassium (Augmentin 500/ 125mg) 1 tab DAILY PO Last administered on 07/08/17 12:47; Start 07/07/17 at 09:00 Magnesium Sulfate/ Dextrose 50 ml @ 25 mls/hr PRN DAILY PRN IV for Mag < 1.7 on am labs; Start 07/07/17 at 10:45 Darbepoetin Yeison (Aranesp) 60 mcg WEEKLYHS SQ Last administered on 07/07/17 20 :30; Start 07/07/17 at 21:00 Sodium Chloride 1,000 ml @ 1,000 mls/hr Q1H PRN IV hypotension; Start 07/08/17 at 07:59; Stop 07/08/17 at 13:58; Status DC Diphenhydramine HCl (Benadryl) 25 mg 1X PRN PRN IV ITCHING; Start 07/08/17 at 08:00; Stop 07/09/17 at 07:59 Diphenhydramine HCl (Benadryl) 25 mg 1X PRN PRN IV ITCHING; Start 07/08/17 at 08:00; Stop 07/09/17 at 07:59 Sodium Chloride 1,000 ml @ 400 mls/hr Q2H30M PRN IV PATENCY; Start 07/08/17 at 07:59; Stop 07/08/17 at 19:58 Info (PHARMACY MONITORING -- do not chart) 1 each PRN DAILY PRN MC SEE COMMENTS ; Start 07/08/17 at 08:00; Status UNV Albumin Human 200 ml @ 200 mls/hr 1X ONCE IV Last administered on 07/08/17 10:17; Start 07/08/17 at 09:30; Stop 07/08/17 at 10:29; Status DC Active Scripts Active Novolog Flexpen (Insulin Aspart) 100 Unit/1 Ml Insuln.pen 0 Units SQ TIDWMEALS 30 Days Hydrocodone-Apap 7.5-325 (Hydrocodone Bit/Acetaminophen) 1 Each Tablet 1 Tab PO PRN Q4HRS PRN 10 Days Children's Aspirin (Aspirin) 81 Mg Tab.chew 81 Mg PO DAILYWBKFT 30 Days Cozaar (Losartan Potassium) 50 Mg Tablet 100 Mg PO DAILY Reported Zofran Odt (Ondansetron) 4 Mg Tab.rapdis 1 Tab SL Q8HRS PRN Hydralazine Hcl 50 Mg Tablet 1 Tab PO TID Levemir (Insulin Detemir) 100 Unit/1 Ml Vial 7 Unit SQ HS Gabapentin 100 Mg Capsule 200 Mg PO BID Cetirizine Hcl 10 Mg Tablet 1 Tab PO DAILY Thera-M (Multivits, W-,Other Min) 1 Each Tablet 1 Each PO DAILY Miralax (Polyethylene Glycol 3350) 17 Gm Powd.pack 1 Packet PO DAILY Colace (Docusate Sodium) 100 Mg Capsule 1 Cap PO DAILY Tylenol (Acetaminophen) 325 Mg Tablet 2 Tab PO PRN Q6HRS PRN Clonidine Hcl 0.1 Mg Tablet 0.1 Mg PO BID Alendronate Sodium 70 Mg Tablet 70 Mg PO WEEKLY Labetalol Hcl 200 Mg Tablet 2 Tab PO DAILY Flonase Allergy Relief (Fluticasone Propionate) 9.9 Ml [place].susp 2 Sprays NS DAILY Calcium 600 + Vit D 400 Caplet (Calcium Carbonate/Vitamin D3) 1 Each Tablet 1 Each PO DAILY Renvela (Sevelamer Carbonate) 800 Mg Tablet 2 Tab PO [id number] Norvasc (Amlodipine Besylate) 10 Mg Tablet 10 Mg PO DAILY Windy-Abby Rx Tablet (Vit B Cmplx 3/Fa/Vit C/Biotin) 1 Each Tablet 1 Each PO DAILY Prilosec (Omeprazole) 20 Mg Capsule.dr 20 Mg PO DAILY Vitals/I & O Vital Sign - Last 24 Hours 07/07/17 07/07/17 07/07/17 07/07/17 19:00 20:00 20:30 20:31 Temp 96.4 96.4 Pulse 62 62 62 Resp 18 B/P (MAP) 119/77 (91) 119/77 119/77 Pulse Ox 97 O2 Delivery Nasal Cannula Nasal Cannula O2 Flow Rate 1.5 2.0 07/07/17 07/08/17 07/08/17 07/08/17 22:47 03:00 04:32 06:05 Temp 96.6 97.5 96.6 97.5 Pulse 71 72 Resp 18 18 22 18 B/P (MAP) 117/52 (73) 135/44 (74) Pulse Ox 95 94 O2 Delivery Nasal Cannula Nasal Cannula Nasal Cannula Nasal Cannula O2 Flow Rate 1.5 1.5 2.0 2.0 07/08/17 07/08/17 07/08/17 07/08/17 07:30 08:30 12:48 12:48 Temp 98.1 98.1 Pulse 72 87 87 Resp 18 B/P (MAP) 132/53 (79) 155/42 155/42 Pulse Ox 95 O2 Delivery Nasal Cannula Nasal Cannula O2 Flow Rate 1.5 1.5 07/08/17 07/08/17 07/08/17 12:49 12:50 12:50 Pulse 87 87 87 B/P (MAP) 155/42 155/42 155/42 Intake and Output 07/08/17 07/08/17 07/09/17 15:00 23:00 07:00 Intake Total 180 ml Balance 180 ml MARQUITA ELLIS MD Jul 08, 2017 16:37
[2017-07-08 19:00] VITALS: BP 147/53
[2017-07-08] MEDS: INSULIN DETEMIR 300 UNITS/3 ML INSULN.PEN. SQ SCH (22:45)
[2017-07-08 23:00] VITALS: BP 134/44
[2017-07-09 03:00] VITALS: BP 132/44
[2017-07-09 05:55] LABS: CALCIUM 8.8 mg/dL (8.5-10.1); CREATININE 4.3 mg/dL (0.6-1.0); GFR 10.2; PHOSPHORUS 2.8 mg/dL (2.6-4.7); POTASSIUM 4.5 mmol/L (3.5-5.1)
[2017-07-09 07:00] VITALS: BP 132/54
[2017-07-09] MEDS: INSULIN ASPART 300 UNITS/3 ML INSULN.PEN SQ SCH ×4 (07:30→21:09)
[2017-07-09] MEDS: ASPIRIN CHEWABLE 81 MG TABLET. PO SCH (08:00)
[2017-07-09] MEDS: PANTOPRAZOLE 40 MG TABLET.DR. PO SCH (08:24)
[2017-07-09] MEDS: FLUTICASONE 50MCG/NASAL SPRAY 16GM BOTTLE. NS SCH (08:25)
[2017-07-09] MEDS: POLYETHYLENE GLYCOL 3350 17 GM PACKET. PO SCH ×2 (09:00→09:37)
--- NOTE | 2017-07-09 09:25 | PDOC ---
PULMONARY PROGRESS NOTES Subjective dysphagia to solids has cough, sob, on 02, no pain, has nasal congestion Vitals Vital Signs Date Time Temp Pulse Resp B/P (MAP) Pulse Ox O2 Delivery O2 Flow Rate FiO2 07/09/17 07:00 98.3 71 18 132/54 (80) 96 Nasal Cannula 1.5 98.3 ROS: No Nausea, No Chest Pain General: Alert, Oriented X4, No acute distress Lungs: Crackles, Other (decrease bases) Cardiovascular: S1, S2 Abdomen: Soft, Non-tender Extremities: No Edema Skin: Warm Labs Laboratory Tests Test 07/07/17 11:22 07/07/17 12:00 07/07/17 16:36 07/07/17 20:43 Glucose (Fingerstick) 140 mg/dL (70-99) 205 mg/dL (70-99) 121 mg/dL (70-99) White Blood Count 7.3 x10^3/uL (4.0-11.0) Red Blood Count 3.27 x10^6/uL (3.50-5.40) Hemoglobin 10.7 g/dL (12.0-15.5) Hematocrit 31.6 % (36.0-47.0) Mean Corpuscular Volume 97 fL (79-100) Mean Corpuscular Hemoglobin 33 pg (25-35) Mean Corpuscular Hemoglobin Concent 34 g/dL (31-37) Red Cell Distribution Width 14.3 % (11.5-14.5) Platelet Count 128 x10^3/uL (140-400) Neutrophils (%) (Auto) 72 % (31-73) Lymphocytes (%) (Auto) 17 % (24-48) Monocytes (%) (Auto) 8 % (0-9) Eosinophils (%) (Auto) 3 % (0-3) Basophils (%) (Auto) 1 % (0-3) Neutrophils # (Auto) 5.2 x10^3uL (1.8-7.7) Lymphocytes # (Auto) 1.2 x10^3/uL (1.0-4.8) Monocytes # (Auto) 0.6 x10^3/uL (0.0-1.1) Eosinophils # (Auto) 0.2 x10^3/uL (0.0-0.7) Basophils # (Auto) 0.0 x10^3/uL (0.0-0.2) Prealbumin 15.8 mg/dL (16.0-42.0) Test 07/08/17 04:50 07/08/17 07:47 07/08/17 16:26 07/08/17 21:32 Hemoglobin 10.5 g/dL (12.0-15.5) Sodium Level 138 mmol/L (136-145) Potassium Level 5.3 mmol/L (3.5-5.1) Chloride Level 101 mmol/L (98-107) Carbon Dioxide Level 29 mmol/L (21-32) Anion Gap 8 (6-14) Blood Urea Nitrogen 63 mg/dL (7-20) Creatinine 6.8 mg/dL (0.6-1.0) Estimated GFR (Cockcroft-Gault) 6.0 Glucose Level 151 mg/dL (70-99) Calcium Level 9.0 mg/dL (8.5-10.1) Phosphorus Level 3.0 mg/dL (2.6-4.7) Magnesium Level 2.0 mg/dL (1.8-2.4) Albumin 2.3 g/dL (3.4-5.0) Glucose (Fingerstick) 125 mg/dL (70-99) 291 mg/dL (70-99) 220 mg/dL (70-99) Test 07/09/17 05:20 07/09/17 07:25 Sodium Level 139 mmol/L (136-145) Potassium Level 4.5 mmol/L (3.5-5.1) Chloride Level 103 mmol/L (98-107) Carbon Dioxide Level 30 mmol/L (21-32) Anion Gap 6 (6-14) Blood Urea Nitrogen 36 mg/dL (7-20) Creatinine 4.3 mg/dL (0.6-1.0) Estimated GFR (Cockcroft-Gault) 10.2 Glucose Level 142 mg/dL (70-99) Calcium Level 8.8 mg/dL (8.5-10.1) Phosphorus Level 2.8 mg/dL (2.6-4.7) Magnesium Level 1.8 mg/dL (1.8-2.4) Albumin 3.0 g/dL (3.4-5.0) Glucose (Fingerstick) 122 mg/dL (70-99) Laboratory Tests Test 07/08/17 16:26 07/08/17 21:32 07/09/17 05:20 07/09/17 07:25 Glucose (Fingerstick) 291 mg/dL (70-99) 220 mg/dL (70-99) 122 mg/dL (70-99) Sodium Level 139 mmol/L (136-145) Potassium Level 4.5 mmol/L (3.5-5.1) Chloride Level 103 mmol/L (98-107) Carbon Dioxide Level 30 mmol/L (21-32) Anion Gap 6 (6-14) Blood Urea Nitrogen 36 mg/dL (7-20) Creatinine 4.3 mg/dL (0.6-1.0) Estimated GFR (Cockcroft-Gault) 10.2 Glucose Level 142 mg/dL (70-99) Calcium Level 8.8 mg/dL (8.5-10.1) Phosphorus Level 2.8 mg/dL (2.6-4.7) Magnesium Level 1.8 mg/dL (1.8-2.4) Albumin 3.0 g/dL (3.4-5.0) Medications Active Scripts Medications Dose Route/Sig Max Daily Dose Days Date Category Zofran Odt (Ondansetron) 4 Mg Tab.rapdis 1 Tab SL Q8HRS PRN 07/04/17 Reported Hydralazine Hcl 50 Mg Tablet 1 Tab PO TID 04/08/17 Reported Levemir (Insulin Detemir) 100 Unit/1 Ml Vial 7 Unit SQ HS 04/08/17 Reported Gabapentin 100 Mg Capsule 200 Mg PO BID 04/08/17 Reported Cetirizine Hcl 10 Mg Tablet 1 Tab PO DAILY 10/29/16 Reported Thera-M (Multivits,Th W-Fe,Other Min) 1 Each Tablet 1 Each PO DAILY 10/29/16 Reported Miralax (Polyethylene Glycol 3350) 17 Gm Powd.pack 1 Packet PO DAILY 10/29/16 Reported Colace (Docusate Sodium) 100 Mg Capsule 1 Cap PO DAILY 10/29/16 Reported Tylenol (Acetaminophen) 325 Mg Tablet 2 Tab PO PRN Q6HRS PRN 10/29/16 Reported Novolog Flexpen (Insulin Aspart) 100 Unit/1 Ml Insuln.pen 0 Units SQ TIDWMEALS 30 09/20/16 Rx Hydrocodone-Apap 7.5-325 (Hydrocodone Bit/Acetaminophen) 1 Each Tablet 1 Tab PO PRN Q4HRS PRN 10 09/20/16 Rx Clonidine Hcl 0.1 Mg Tablet 0.1 Mg PO BID 09/17/16 Reported Alendronate Sodium 70 Mg Tablet 70 Mg PO WEEKLY 09/17/16 Reported Labetalol Hcl 200 Mg Tablet 2 Tab PO DAILY 09/17/16 Reported Flonase Allergy Relief (Fluticasone Propionate) 9.9 Ml [place].susp 2 Sprays NS DAILY 09/17/16 Reported Children's Aspirin (Aspirin) 81 Mg Tab.chew 81 Mg PO DAILYWBKFT 30 11/04/15 Rx Calcium 600 + Vit D 400 Caplet (Calcium Carbonate/Vitamin D3) 1 Each Tablet 1 Each PO DAILY 10/24/15 Reported Renvela (Sevelamer Carbonate) 800 Mg Tablet 2 Tab PO [id number] 12/21/14 Reported Cozaar (Losartan Potassium) 50 Mg Tablet 100 Mg PO DAILY 09/30/14 Rx Norvasc (Amlodipine Besylate) 10 Mg Tablet 10 Mg PO DAILY 11/11/13 Reported Windy-Abby Rx Tablet (Vit B Cmplx 3/Fa/Vit C/Biotin) 1 Each Tablet 1 Each PO DAILY 11/11/13 Reported Prilosec (Omeprazole) 20 Mg Capsule.dr 20 Mg PO DAILY 11/11/13 Reported Impression . 1. Abnormal chest x-ray with markedly elevated right hemidiaphragm which could be paralyzed and subdiaphragmatic infiltrate. There is mild patchy infiltrate left base. CT chest confirmed worsening infiltrates/pneumonia RLL. 2. No significant history of tobacco use. 3. End-stage renal disease, on hemodialysis. Clinically, less likely congestive heart failure. 4. History of previous echocardiogram with normal ejection fraction and also previous left heart catheterization with mild coronary artery disease. 5. Dysphagia to solids/ has h/o Esophageal stricture and dilation. Needs re- eval/ suspect chronic aspiration Plan . 1. CT chest reviewed. 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 2. Continue antibiotics for now.clinically responding. wbc normal now 3. Dialysis per Renal. 4. Continue oxygen titration. 5. Monitor white cell count. 6. GI consulted for possible dilation of esophagus. EGD later d/w speech 7. add bronchodilator discussed w pt LUIS CIFUENTES MD Jul 09, 2017 09:25
[2017-07-09] MEDS: CALCIUM ACETATE 667 MG CAPSULE PO SCH ×3 (09:34→17:47)
[2017-07-09] MEDS: AMOXICILLIN/K CLAV 500/125MG TABLET. PO SCH (09:35)
[2017-07-09] MEDS: cloNIDine HCL 0.1 MG TABLET PO SCH ×2 (09:36→21:00)
[2017-07-09] MEDS: DOCUSATE SODIUM 100 MG CAPSULE. PO SCH (09:36)
[2017-07-09] MEDS: LOSARTAN POTASSIUM 50 MG TABLET. PO SCH (09:37)
[2017-07-09] MEDS: GABAPENTIN 100 MG CAPSULE. PO SCH ×2 (09:38→21:04)
[2017-07-09] MEDS: MULTIVITAMIN with MINERAL TABLET. PO SCH (09:39)
[2017-07-09] MEDS: amLODIPine BESYLATE 10 MG TABLET PO SCH (09:39)
[2017-07-09] MEDS: FOLIC/VIT B COMP W-C (RENAL) TABLET. PO SCH (09:39)
[2017-07-09] MEDS: CETIRIZINE HCL 10 MG TABLET. PO SCH (09:40)
[2017-07-09] MEDS: LABETALOL HCL 200 MG TABLET PO SCH (09:40)
[2017-07-09] MEDS ORDERED: AMOX1TAB10 PO (10:33)
[2017-07-09] MEDS ORDERED: LEVO500T59 PO (10:33)
[2017-07-09 10:50] VITALS: BP 115/61
[2017-07-09] MEDS: IPRATRPIUM/ALBUTEROL 0.5/2.5MG 3 ML NEBU. NEB SCH ×3 (11:08→18:32)
--- NOTE | 2017-07-09 11:26 | PDOC ---
Renal-Progress Notes Subjective Notes Notes FEELS WELL History of Present Illness Hx of present illness BETTER Vitals Vitals Vital Signs Date Time Temp Pulse Resp B/P (MAP) Pulse Ox O2 Delivery O2 Flow Rate FiO2 07/09/17 11:12 93 Nasal Cannula 2.0 07/09/17 10:50 98.3 72 18 115/61 (79) 98.3 Weight Weight [ ] Labs Labs Laboratory Tests Test 07/08/17 16:26 07/08/17 21:32 07/09/17 05:20 07/09/17 07:25 Glucose (Fingerstick) 291 mg/dL (70-99) 220 mg/dL (70-99) 122 mg/dL (70-99) Sodium Level 139 mmol/L (136-145) Potassium Level 4.5 mmol/L (3.5-5.1) Chloride Level 103 mmol/L (98-107) Carbon Dioxide Level 30 mmol/L (21-32) Anion Gap 6 (6-14) Blood Urea Nitrogen 36 mg/dL (7-20) Creatinine 4.3 mg/dL (0.6-1.0) Estimated GFR (Cockcroft-Gault) 10.2 Glucose Level 142 mg/dL (70-99) Calcium Level 8.8 mg/dL (8.5-10.1) Phosphorus Level 2.8 mg/dL (2.6-4.7) Magnesium Level 1.8 mg/dL (1.8-2.4) Albumin 3.0 g/dL (3.4-5.0) Review of Systems Constitutional: yes: alert, oriented Ears/Nose/Throat: Yes: no symptom reported Pulmonary: Yes no symptom reported Cardiovascular: Yes no symptom reported Gastrointestional: Yes: no symptom reported Musculoskeletal: Yes: muscle stiffness Skin: Yes no symptom reported Psychiatric/Neurological: Yes: no symptom reported Endocrine: Yes: no symptom reported Physical Exam General Appearance: no apparent distress Skin: warm Respiratory: bilateral CTA Heart: S1S2, RRR Abdomen: soft, bowel sounds present Genitourinary: bladder flat Extremities: pulses present, atrophy Neurology: alert, oriented Musculoskeletal: Osteoarthritis, Other Assessment Assessment IMP ESRD ANEMIA DM II HTN PNEUMONIA PLAN HD ON TUESDAY ANTIBIOTIC NEEDED POSSIBLE D/C TODAY D/W ATTENDING DAKOTA ARIAS MD Jul 09, 2017 11:26
[2017-07-09 15:00] VITALS: BP 97/42
--- NOTE | 2017-07-09 15:43 | DS ---
DATE OF DISCHARGE: 07/09/2017 DATE OF ADMISSION: 07/04/2017 DATE OF DISCHARGE: 07/09/2017 ADMISSION DIAGNOSES: 1. Bilateral lobar pneumonia with right-sided pneumonia and suspected aspiration. 2. End-stage renal disease, on dialysis. 3. Type 2 diabetes. 4. Metabolic encephalopathy. 5. Hypertension. 6. Type 2 diabetes. 7. High cholesterol. 8. Diabetic retinopathy. 9. Diabetic neuropathy. 10. Chronic lumbar spinal stenosis. 11. Osteoporosis. 12. Drop foot. HISTORY OF PRESENT ILLNESS AND HOSPITAL COURSE: This patient is a 67-year-old female who was undergoing dialysis and began having increasing fatigue, inability to care for herself and came to the Emergency Room for followup with additional complaints of nausea, vomiting and had a CAT scan of her abdomen. The abdomen CAT scan showed an occult pneumonia and confirmed by followup chest CT. Pulmonology was consulted and the patient underwent initially IV antibiotics for healthcare-acquired pneumonia. HOSPITAL COURSE: The patient became somewhat nauseated with triple antibiotic therapy and that therapy was switched to p.o. medication due to side effects of IV medication. She underwent ongoing dialysis during her hospitalization. She began having hallucinations, which extended her hospital stay. The patient's pneumonia, clinically improved despite initial CT showing worsening pneumonia, but white count became improved. The patient's strength improved as well as the patient's p.o. diet improved. The patient had difficulty swallowing and was found to have presbyesophagus with evidence of esophageal stricture. Recommendations for EGD and dilatation were made, but the patient was able to take fluids. Therefore, she was discharged to home for outpatient followup EGD and dilatation. DISCHARGE MEDICATIONS: The patient was discharged home on her previous home medications as well as Augmentin 875 one p.o. b.i.d. for 10 days, Levaquin 500 mg every other day for 8 days. FOLLOWUP: She will follow up with dialysis per her routine followup with Dr. Banuelos in one week. MARQUITA ELLIS MD DR: WAQAR/ronaldo JOB#: [id number] / [id number]
[2017-07-09 19:00] VITALS: BP 126/54
[2017-07-09] MEDS: INSULIN DETEMIR 300 UNITS/3 ML INSULN.PEN. SQ SCH (21:09)
[2017-07-09 23:00] VITALS: BP 126/52
[2017-07-10 03:00] VITALS: BP 132/89
[2017-07-10 06:04] LABS: CALCIUM 9.2 mg/dL (8.5-10.1); CREATININE 6.2 mg/dL (0.6-1.0); GFR 6.7; PHOSPHORUS 2.4 mg/dL (2.6-4.7); POTASSIUM 4.7 mmol/L (3.5-5.1)
[2017-07-10 07:00] VITALS: BP 136/60
[2017-07-10] MEDS: IPRATRPIUM/ALBUTEROL 0.5/2.5MG 3 ML NEBU. NEB SCH ×2 (07:33→11:33)
[2017-07-10] MEDS: INSULIN ASPART 300 UNITS/3 ML INSULN.PEN SQ SCH ×2 (08:25→12:07)
--- NOTE | 2017-07-10 08:53 | PDOC ---
PULMONARY PROGRESS NOTES Subjective dysphagia to solids cough, sob, better, on 02, no pain, has nasal congestion Vitals Vital Signs Date Time Temp Pulse Resp B/P (MAP) Pulse Ox O2 Delivery O2 Flow Rate FiO2 07/10/17 07:35 96 Nasal Cannula 1.0 07/10/17 07:00 97.9 79 18 136/60 (85) 97.9 ROS: No Nausea, No Chest Pain General: Alert, Oriented X4, No acute distress HEENT: Other (nc at perrl) Lungs: Crackles, Other (decrease bases) Cardiovascular: S1, S2 Abdomen: Soft, Non-tender Extremities: No Edema Skin: Warm Labs Laboratory Tests Test 07/08/17 16:26 07/08/17 21:32 07/09/17 05:20 07/09/17 07:25 Glucose (Fingerstick) 291 mg/dL (70-99) 220 mg/dL (70-99) 122 mg/dL (70-99) Sodium Level 139 mmol/L (136-145) Potassium Level 4.5 mmol/L (3.5-5.1) Chloride Level 103 mmol/L (98-107) Carbon Dioxide Level 30 mmol/L (21-32) Anion Gap 6 (6-14) Blood Urea Nitrogen 36 mg/dL (7-20) Creatinine 4.3 mg/dL (0.6-1.0) Estimated GFR (Cockcroft-Gault) 10.2 Glucose Level 142 mg/dL (70-99) Calcium Level 8.8 mg/dL (8.5-10.1) Phosphorus Level 2.8 mg/dL (2.6-4.7) Magnesium Level 1.8 mg/dL (1.8-2.4) Albumin 3.0 g/dL (3.4-5.0) Test 07/09/17 11:37 07/09/17 16:32 07/09/17 20:25 07/10/17 04:47 Glucose (Fingerstick) 217 mg/dL (70-99) 169 mg/dL (70-99) 185 mg/dL (70-99) Sodium Level 140 mmol/L (136-145) Potassium Level 4.7 mmol/L (3.5-5.1) Chloride Level 102 mmol/L (98-107) Carbon Dioxide Level 29 mmol/L (21-32) Anion Gap 9 (6-14) Blood Urea Nitrogen 62 mg/dL (7-20) Creatinine 6.2 mg/dL (0.6-1.0) Estimated GFR (Cockcroft-Gault) 6.7 Glucose Level 164 mg/dL (70-99) Calcium Level 9.2 mg/dL (8.5-10.1) Phosphorus Level 2.4 mg/dL (2.6-4.7) Magnesium Level 2.0 mg/dL (1.8-2.4) Albumin 3.0 g/dL (3.4-5.0) Test 07/10/17 07:25 Glucose (Fingerstick) 159 mg/dL (70-99) Laboratory Tests Test 07/09/17 11:37 07/09/17 16:32 07/09/17 20:25 07/10/17 04:47 Glucose (Fingerstick) 217 mg/dL (70-99) 169 mg/dL (70-99) 185 mg/dL (70-99) Sodium Level 140 mmol/L (136-145) Potassium Level 4.7 mmol/L (3.5-5.1) Chloride Level 102 mmol/L (98-107) Carbon Dioxide Level 29 mmol/L (21-32) Anion Gap 9 (6-14) Blood Urea Nitrogen 62 mg/dL (7-20) Creatinine 6.2 mg/dL (0.6-1.0) Estimated GFR (Cockcroft-Gault) 6.7 Glucose Level 164 mg/dL (70-99) Calcium Level 9.2 mg/dL (8.5-10.1) Phosphorus Level 2.4 mg/dL (2.6-4.7) Magnesium Level 2.0 mg/dL (1.8-2.4) Albumin 3.0 g/dL (3.4-5.0) Test 07/10/17 07:25 Glucose (Fingerstick) 159 mg/dL (70-99) Medications Active Scripts Medications Dose Route/Sig Max Daily Dose Days Date Category Zofran Odt (Ondansetron) 4 Mg Tab.rapdis 1 Tab SL Q8HRS PRN 07/04/17 Reported Hydralazine Hcl 50 Mg Tablet 1 Tab PO TID 04/08/17 Reported Levemir (Insulin Detemir) 100 Unit/1 Ml Vial 7 Unit SQ HS 04/08/17 Reported Gabapentin 100 Mg Capsule 200 Mg PO BID 04/08/17 Reported Cetirizine Hcl 10 Mg Tablet 1 Tab PO DAILY 10/29/16 Reported Thera-M (Multivits,Th W-Fe,Other Min) 1 Each Tablet 1 Each PO DAILY 10/29/16 Reported Miralax (Polyethylene Glycol 3350) 17 Gm Powd.pack 1 Packet PO DAILY 10/29/16 Reported Colace (Docusate Sodium) 100 Mg Capsule 1 Cap PO DAILY 10/29/16 Reported Tylenol (Acetaminophen) 325 Mg Tablet 2 Tab PO PRN Q6HRS PRN 10/29/16 Reported Novolog Flexpen (Insulin Aspart) 100 Unit/1 Ml Insuln.pen 0 Units SQ TIDWMEALS 30 09/20/16 Rx Hydrocodone-Apap 7.5-325 (Hydrocodone Bit/Acetaminophen) 1 Each Tablet 1 Tab PO PRN Q4HRS PRN 10 09/20/16 Rx Clonidine Hcl 0.1 Mg Tablet 0.1 Mg PO BID 09/17/16 Reported Alendronate Sodium 70 Mg Tablet 70 Mg PO WEEKLY 09/17/16 Reported Labetalol Hcl 200 Mg Tablet 2 Tab PO DAILY 09/17/16 Reported Flonase Allergy Relief (Fluticasone Propionate) 9.9 Ml [place].susp 2 Sprays NS DAILY 09/17/16 Reported Children's Aspirin (Aspirin) 81 Mg Tab.chew 81 Mg PO DAILYWBKFT 30 11/04/15 Rx Calcium 600 + Vit D 400 Caplet (Calcium Carbonate/Vitamin D3) 1 Each Tablet 1 Each PO DAILY 10/24/15 Reported Renvela (Sevelamer Carbonate) 800 Mg Tablet 2 Tab PO [id number] 12/21/14 Reported Cozaar (Losartan Potassium) 50 Mg Tablet 100 Mg PO DAILY 09/30/14 Rx Norvasc (Amlodipine Besylate) 10 Mg Tablet 10 Mg PO DAILY 11/11/13 Reported Windy-Abby Rx Tablet (Vit B Cmplx 3/Fa/Vit C/Biotin) 1 Each Tablet 1 Each PO DAILY 11/11/13 Reported Prilosec (Omeprazole) 20 Mg Capsule.dr 20 Mg PO DAILY 11/11/13 Reported Impression . 1. Abnormal chest x-ray with markedly elevated right hemidiaphragm which could be paralyzed and subdiaphragmatic infiltrate. There is mild patchy infiltrate left base. CT chest confirmed worsening infiltrates/pneumonia RLL. 2. No significant history of tobacco use. 3. End-stage renal disease, on hemodialysis. Clinically, less likely congestive heart failure. 4. History of previous echocardiogram with normal ejection fraction and also previous left heart catheterization with mild coronary artery disease. 5. Dysphagia to solids/ has h/o Esophageal stricture and dilation. Needs re- eval/ suspect chronic aspiration Plan . 1. CT chest reviewed. 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 2. Continue antibiotics for now.clinically responding. wbc normal now 3. Dialysis per Renal. 4. Continue oxygen titration. 5. Monitor white cell count. 6. GI consulted for possible dilation of esophagus. EGD later d/w speech 7. bronchodilator discussed w pt LUIS CIFUENTES MD Jul 10, 2017 08:53
[2017-07-10] MEDS: DOCUSATE SODIUM 100 MG CAPSULE. PO SCH (09:00)
[2017-07-10] MEDS: POLYETHYLENE GLYCOL 3350 17 GM PACKET. PO SCH (09:00)
[2017-07-10] MEDS: AMOXICILLIN/K CLAV 500/125MG TABLET. PO SCH (09:28)
[2017-07-10] MEDS: MULTIVITAMIN with MINERAL TABLET. PO SCH (09:28)
[2017-07-10] MEDS: GABAPENTIN 100 MG CAPSULE. PO SCH (09:28)
[2017-07-10] MEDS: FOLIC/VIT B COMP W-C (RENAL) TABLET. PO SCH (09:28)
[2017-07-10] MEDS: CALCIUM ACETATE 667 MG CAPSULE PO SCH ×2 (09:28→12:05)
[2017-07-10] MEDS: LABETALOL HCL 200 MG TABLET PO SCH (09:28)
[2017-07-10] MEDS: cloNIDine HCL 0.1 MG TABLET PO SCH (09:29)
[2017-07-10] MEDS: ASPIRIN CHEWABLE 81 MG TABLET. PO SCH (09:29)
[2017-07-10] MEDS: LOSARTAN POTASSIUM 50 MG TABLET. PO SCH (09:29)
[2017-07-10] MEDS: amLODIPine BESYLATE 10 MG TABLET PO SCH (09:29)
[2017-07-10] MEDS: PANTOPRAZOLE 40 MG TABLET.DR. PO SCH (09:29)
[2017-07-10] MEDS: CETIRIZINE HCL 10 MG TABLET. PO SCH (09:29)
[2017-07-10] MEDS: HYDROcodone/APAP 7.5/325MG 1 TAB TABLET PO PRN (09:30)
[2017-07-10] MEDS: FLUTICASONE 50MCG/NASAL SPRAY 16GM BOTTLE. NS SCH (09:32)
[2017-07-10 11:00] VITALS: BP 145/58
== END 2017-07-10 13:50 | disposition home or self-care (01) | DRG 177 ==
LOC: ER 12:49 → 5 NORTH 15:50
PROVIDERS: ADMIT Family Medicine; ATTEND Family Medicine
PROC: 5A1D60Z (ICD-10-PCS; principal; 2017-07-06)
DX: J69.0 Pneumonitis due to inhalation of food and vomit (principal); N18.6 End stage renal disease; G93.41 Metabolic encephalopathy; I13.2 Hypertensive heart and chronic kidney disease with heart failure and with stage 5 chronic kidney disease, or end stage renal disease; E11.22 Type 2 diabetes mellitus with diabetic chronic kidney disease; D64.9 Anemia, unspecified; E11.319 Type 2 diabetes mellitus with unspecified diabetic retinopathy without macular edema; E11.42 Type 2 diabetes mellitus with diabetic polyneuropathy; E78.00 Pure hypercholesterolemia, unspecified; E78.5 Hyperlipidemia, unspecified; F29 Unspecified psychosis not due to a substance or known physiological condition; K21.9 Gastro-esophageal reflux disease without esophagitis; E21.3 Hyperparathyroidism, unspecified; K29.80 Duodenitis without bleeding; K22.2 Esophageal obstruction; K44.9 Diaphragmatic hernia without obstruction or gangrene; K80.20 Calculus of gallbladder without cholecystitis without obstruction; M21.371 Foot drop, right foot; M21.372 Foot drop, left foot; M48.06 Spinal stenosis, lumbar region; M81.0 Age-related osteoporosis without current pathological fracture; F32.9 Major depressive disorder, single episode, unspecified; Y95 Nosocomial condition; I50.9 Heart failure, unspecified; I25.10 Atherosclerotic heart disease of native coronary artery without angina pectoris; Z99.2 Dependence on renal dialysis; Z86.73 Personal history of transient ischemic attack (TIA), and cerebral infarction without residual deficits; Z86.19 Personal history of other infectious and parasitic diseases; Z83.3 Family history of diabetes mellitus; Z82.49 Family history of ischemic heart disease and other diseases of the circulatory system; Z82.3 Family history of stroke; Z80.9 Family history of malignant neoplasm, unspecified; Z87.440 Personal history of urinary (tract) infections; Z87.81 Personal history of (healed) traumatic fracture; Z88.6 Allergy status to analgesic agent; Z90.710 Acquired absence of both cervix and uterus; Z98.51 Tubal ligation status
CPT/HCPCS: 36415; 71010; 71250; 74176; 80053; 80069; 80202; 82962; 83690; 83735; 84134; 84484; 85007; 85018; 85025; 93005; 94250; 94640; 96361; 96365; J0881; J1815; J1956; J2405; J2501; J2543; J3370; J7040; J7620; P9046; Q0162; 97110; 97116; 97530; 97535; 99285-25

== ENCOUNTER 2017-08-31 18:32 | Inpatient (IN) | payer OTHER ==
[~2017-08-31] VITALS: Ht 157.5 cm; Wt 67.1 kg
[~2017-08-31 18:32] MED LIST changes: +AMOX1TAB10 PO; +ONDA4TAB10 SL
[2017-08-31 19:09] LABS: BASO # 0.1 x10^3/uL (0.0-0.2); BASO % 1 % (0-3); EOS % 3 % (0-3); HEMOGLOBIN 12.5 g/dL (12.0-15.5); LYMPH # 1.1 x10^3/uL (1.0-4.8); LYMPH % 12 % (24-48); MEAN CORPUSCULAR HEMOGLOBIN 33 pg (25-35); MEAN CORPUSCULAR HGB CONC 33 g/dL (31-37); MEAN CORPUSCULAR VOLUME 100 fL (79-100); MONO % 8 % (0-9); NEUT % 76 % (31-73); PLATELET COUNT 150 x10^3/uL (140-400); RED CELL DISTRIBUTION WIDTH 15.4 % (11.5-14.5); WHITE BLOOD COUNT 9.2 x10^3/uL (4.0-11.0)
--- NOTE | 2017-08-31 19:12 | PHYS DOC ---
Past Medical History Past Medical History: Bronchitis, Diabetes-Type II, Hypertension, Renal Failure , Other Additional Past Medical Histor: c diff , drop foot syndrome LEFT, DIALYSIS Past Surgical History: , Tonsillectomy, Tubal ligation, Other Additional Past Surgical Histo: bilateral rotator cuff; dialysis shunt left forearm Alcohol Use: None Drug Use: None Adult General Chief Complaint Chief Complaint: FEVER HPI HPI Patient is a 67 year old F who presents with fever and general has weakness. Patient states she was at dialysis earlier today with a fever 101. Patient complains of a cough is nonproductive. Patient went to senior care as bodyaches. Patient took Tylenol prior to coming in. Patient denies any chest pain or shortness of breath. Patient denies any nausea/vomiting/diarrhea. Patient has no other complaints. Review of Systems Review of Systems GEN: Fever and weakness HEENT: Denies blurred vision, sore throat CV: Denies chest pain RESP: Denies shortness of air, cough GI: Denies n/v/d NEURO: Denies confusion, dizziness MSK: Denies weakness, joint pain/swelling All other systems were reviewed and found to be within normal limits, except as documented in this note. Allergies Allergies Allergies Coded Allergies Type Severity Reaction Last Updated Verified No Known Drug Allergies 11/01/16 No Physical Exam Physical Exam GEN.: mild distress. Alert and oriented. HEENT: Head is normocephalic, atraumatic NECK: Supple. LUNGS: CTAB. HEART: RRR, S1, S2 present. Peripheral pulses intact ABDOMEN: Soft, nontender. Positive bowel sounds. EXTREMITIES: Without any cyanosis, left upper extremity dialysis fistula present with a palpable thrill and auscultated bruit NEUROLOGIC: Normal speech, normal tone PSYCHIATRIC: Normal affect, normal mood. SKIN: No ulcerations Current Patient Data Vital Signs Vital Signs Date Time Temp Pulse Resp B/P (MAP) Pulse Ox O2 Delivery O2 Flow Rate FiO2 08/31/17 20:45 85 15 157/71 (99) 98 Nasal Cannula 2.0 08/31/17 18:44 98.1 98.1 Lab Values Laboratory Tests Test 08/31/17 18:00 08/31/17 18:50 Influenza Type A Antigen Negative (NEGATIVE) Influenza Type B Antigen Negative (NEGATIVE) White Blood Count 9.2 x10^3/uL (4.0-11.0) Red Blood Count 3.80 x10^6/uL (3.50-5.40) Hemoglobin 12.5 g/dL (12.0-15.5) Hematocrit 38.0 % (36.0-47.0) Mean Corpuscular Volume 100 fL (79-100) Mean Corpuscular Hemoglobin 33 pg (25-35) Mean Corpuscular Hemoglobin Concent 33 g/dL (31-37) Red Cell Distribution Width 15.4 % (11.5-14.5) H Platelet Count 150 x10^3/uL (140-400) Neutrophils (%) (Auto) 76 % (31-73) H Lymphocytes (%) (Auto) 12 % (24-48) L Monocytes (%) (Auto) 8 % (0-9) Eosinophils (%) (Auto) 3 % (0-3) Basophils (%) (Auto) 1 % (0-3) Neutrophils # (Auto) 7.0 x10^3uL (1.8-7.7) Lymphocytes # (Auto) 1.1 x10^3/uL (1.0-4.8) Monocytes # (Auto) 0.7 x10^3/uL (0.0-1.1) Eosinophils # (Auto) 0.2 x10^3/uL (0.0-0.7) Basophils # (Auto) 0.1 x10^3/uL (0.0-0.2) Sodium Level 141 mmol/L (136-145) Potassium Level 4.3 mmol/L (3.5-5.1) Chloride Level 102 mmol/L (98-107) Carbon Dioxide Level 28 mmol/L (21-32) Anion Gap 11 (6-14) Blood Urea Nitrogen 25 mg/dL (7-20) H Creatinine 3.9 mg/dL (0.6-1.0) H Estimated GFR (Cockcroft-Gault) 11.4 BUN/Creatinine Ratio 6 (6-20) Glucose Level 269 mg/dL (70-99) H Lactic Acid Level 2.3 mmol/L (0.4-2.0) H Calcium Level 7.4 mg/dL (8.5-10.1) L Total Bilirubin 0.4 mg/dL (0.2-1.0) Aspartate Amino Transferase (AST) 36 U/L (15-37) Alanine Aminotransferase (ALT) 22 U/L (14-59) Alkaline Phosphatase 862 U/L (46-116) H Total Protein 7.5 g/dL (6.4-8.2) Albumin 3.0 g/dL (3.4-5.0) L Albumin/Globulin Ratio 0.7 (1.0-1.7) L Laboratory Tests 08/31/17 18:50 Laboratory Tests 08/31/17 18:50 EKG EKG 1849: EKG shows normal sinus rhythm rate of 83 no STEMI[] Radiology/Procedures Radiology/Procedures CXR: RLL pneumonia[] Course & Med Decision Making Course & Med Decision Making Pertinent Labs and Imaging studies reviewed. (See chart for details) ED course: Patient was seen and examined emergency room septic workup was ordered 0: Patient was reevaluated and explained that we'll admit her to the hospital for further evaluation and management 2143: Discussed CC/HP/PMH with Dr. Watson and recommends admit MDM: After reviewing the chart, CC/HPI/PMH, physical exam, [lab results], [ radiological results], I do not believe the patient has severe sepsis however will omit the patient for IV antibiotics and we'll trend her lactic acid. [] Dragon Disclaimer Dragon Disclaimer This electronic medical record was generated, in whole or in part, using a voice recognition dictation system. Departure Departure Impression: Primary Impression: Right lower lobe pneumonia Additional Impression: Lactic acidosis Disposition: 09 ADMITTED INPATIENT Admitting Physician: Nicolasa Banuelos Condition: STABLE Referrals: NICOLASA BANUELOS MD (PCP) Problem Qualifiers LINDY PATEL DO Aug 31, 2017 19:12
[2017-08-31 19:31] LABS: CALCIUM 7.4 mg/dL (8.5-10.1); CREATININE 3.9 mg/dL (0.6-1.0); GFR 11.4; POTASSIUM 4.3 mmol/L (3.5-5.1)
[2017-08-31 19:36] LABS: ALBUMIN/GLOBULIN RATIO 0.7 (1.0-1.7); TOTAL BILIRUBIN 0.4 mg/dL (0.2-1.0); TOTAL PROTEIN 7.5 g/dL (6.4-8.2)
[2017-08-31 21:33] LABS: OBC FLU VALID
[2017-08-31] MEDS ORDERED: PIP/TAZO PER PHARMACY MC PRN (21:45)
[2017-08-31] MEDS ORDERED: VANCOMYCIN 1.5 GM in IV DEXTROSE 5% 500 ML IV ONE (21:45)
[2017-08-31] MEDS ORDERED: PIPERACILLIN/TAZO IV Push 4.5 GM VIAL. IVP ONE (21:45)
[2017-08-31] MEDS ORDERED: MORPHINE SULFATE 4 MG/ML DISP.SYRIN. IV PRN (22:00)
[2017-08-31] MEDS ORDERED: ACETAMINOPHEN 325 MG TABLET. PO PRN (22:00)
[2017-08-31] MEDS ORDERED: ONDANSETRON PF 4 MG/2 ML VIAL. IV PRN (22:00)
[2017-08-31 23:31] VITALS: BP 159/60
[2017-08-31 23:33] VITALS: BP 159/60
[2017-08-31] MEDS: VANCOMYCIN PER PHARMACY MC PRN (23:48)
[2017-09-01 03:56] VITALS: BP 139/52
[2017-09-01] MEDS ORDERED: HYDR-2758 PO (05:43)
[2017-09-01] MEDS ORDERED: OMEP40CA5 PO (05:43)
[2017-09-01] MEDS: PIPERACILLIN/TAZO IV Push 2.25 GM VIAL. IVP SCH ×3 (06:02→22:42)
--- NOTE | 2017-09-01 06:44 | EKG ---
[facility] [address] [place] [address] Test Date: 2017-08-31 Test Time: 18:49:40 Pat Name: ROBBIN LYNN Department: Room: 4 1 Gender: F Limnologist: : [id number] Requested By: LINDY PATEL Order Number: [id number] Reading MD: Julio Viveros MD Measurements Intervals [place] Rate: 83 P: 152 SD: 110 QRS: 36 QRSD: 82 T: -4 QT: 394 QTc: 464 Interpretive Statements SR Electronically Signed On 09-01-2017 16:11:34 [employer] ENGINEER by Julio Viveros MD
[2017-09-01 06:52] LABS: CALCIUM 7.3 mg/dL (8.5-10.1); CREATININE 4.7 mg/dL (0.6-1.0); GFR 9.2; POTASSIUM 4.8 mmol/L (3.5-5.1)
[2017-09-01 06:56] LABS: BASO # 0.1 x10^3/uL (0.0-0.2); BASO % 1 % (0-3); EOS % 2 % (0-3); HEMATOCRIT 34.1 % (36.0-47.0); HEMOGLOBIN 11.4 g/dL (12.0-15.5); LYMPH # 1.7 x10^3/uL (1.0-4.8); LYMPH % 18 % (24-48); MEAN CORPUSCULAR HEMOGLOBIN 33 pg (25-35); MEAN CORPUSCULAR HGB CONC 33 g/dL (31-37); MEAN CORPUSCULAR VOLUME 99 fL (79-100); MONO % 9 % (0-9); NEUT % 71 % (31-73); PLATELET COUNT 131 x10^3/uL (140-400); RED BLOOD COUNT 3.45 x10^6/uL (3.50-5.40); RED CELL DISTRIBUTION WIDTH 15.3 % (11.5-14.5); WHITE BLOOD COUNT 9.6 x10^3/uL (4.0-11.0)
[2017-09-01 07:00] VITALS: BP 147/60
--- NOTE | 2017-09-01 07:28 | RAD ---
Chest radiograph Two Views 08/31/2017 Clinical indication: Cough Comparison: Chest 07/05/2017 Findings: Stable elevation of the right hemidiaphragm. Heart size is upper limits of normal with pulmonary venous congestion and interstitial opacities. There are persistent patchy opacities in both lung bases. There is a thin linear calcified pleural plaque in the left lung base. No pneumothorax. Impression: 1. Cardiomegaly and pulmonary edema suggestive of CHF and/or volume overload. 2. Unchanged patchy opacities in the lung bases suggestive of chronic scarring, though aspiration, focal pulmonary edema or multifocal infection cannot be excluded. 3. Mild elevation of the right hemidiaphragm
[2017-09-01 11:00] VITALS: BP 152/77
[2017-09-01] MEDS ORDERED: ACETAMINOPHEN 325 MG TABLET. PO PRN (11:30)
[2017-09-01] MEDS ORDERED: HYDROcodone/APAP 7.5/325MG 1 TAB TABLET PO PRN (11:30)
[2017-09-01] MEDS: INSULIN ASPART 300 UNITS/3 ML INSULN.PEN SQ SCH ×5 (12:00→22:49)
--- NOTE | 2017-09-01 12:01 | PDOC2 ---
CONSULT Date of Consult Date of Consult DATE: 09/01/17 TIME: 11:55 Reason for Consult Reason for Consult: ESRD AND SOB WITH FEVERS Referring Physician Referring Physician: FLORENCIO Identification/Chief Complaint Chief Complaint SOB Problems: Source Source: Chart review, Patient History of Present Illness Reason for Visit: THIS IS A 67 YR OLD ADMITTED WITH SOB AND FEVERS. SHE HAS ESRD DUE TO DM II AND HTN. SHE HAS OP HD ON MWF. SHE HAD DIALYSIS YESTERDAY AND FINISHED HER TX BUT WAS STILL SOB AT THE END OF HER TX AND ALSO HAD A 101 FEVER. LABS ARE C/W HER ESRD STATUS. CXRAY SHOWED DIFFUSE CONGESTION Past Medical History Cardiovascular: CAD, CHF, HTN, Hyperlipidemia Pulmonary: No pertinent hx, Pneumonia CENTRAL NERVOUS SYSTEM: Periperal neuropathy, TIA GI: GERD Heme/Onc: Anemia NOS Hepatobiliary: Cholelithiasis Psych: Depression Musculoskeletal: Osteoarthritis, Other Rheumatologic: No pertinent hx Infectious disease: No pertinent hx Renal/: Chronic renal failure, UTI, Other Endocrine: Diabetes, Hyperparathyroidism Past Surgical History Past Surgical History: Arthroscopy, Cholecystectomy, , Tonsillectomy, Hysterectomy, Other Family History Family History: Cancer, Diabetes, Hypertension, Stroke Social History ALCOHOL: none Drugs: None Lives: with Family Domestic Violence: Neg Current Problem List Problem List Problems Medical Problems: (1) Lactic acidosis Status: Acute (2) Right lower lobe pneumonia Status: Acute Current Medications Current Medications Current Medications Vancomycin HCl (Vanco Per Pharmacy) 1 each PRN DAILY PRN MC SEE COMMENTS Last administered on 08/31/17 23:48; Start 08/31/17 at 22:00 Piperacillin Sod/ Tazobactam Sod (Zosyn Per Pharmacy) 1 each PRN DAILY PRN MC SEE COMMENTS; Start 08/31/17 at 21:45 Vancomycin HCl 1.5 gm/Dextrose 500 ml @ 250 mls/hr ONCE ONCE IV Last administered on 08/31/17 22:02; Start 08/31/17 at 21:45; Stop 08/31/17 at 23 :44; Status DC Piperacillin Sod/ Tazobactam Sod (Zosyn) 4.5 gm ONCE ONCE IVP Last administered on 08/31/17 22:02; Start 08/31/17 at 21:45; Stop 08/31/17 at 21 :46; Status DC Ondansetron HCl (Zofran) 4 mg PRN Q8HRS PRN IV NAUSEA/VOMITING Last administered on 09/01/17t 00:02; Start 08/31/17 at 22:00; Stop 09/01/17 at 21 :59 Morphine Sulfate 4 mg PRN Q2HR PRN IV PAIN; Start 08/31/17 at 22:00; Stop at 21:59 Acetaminophen (Tylenol) 650 mg PRN Q4HRS PRN PO FEVER; Start 08/31/17 at 22:00 ; Stop 09/01/17 at 21:59 Piperacillin Sod/ Tazobactam Sod (Zosyn) 2.25 gm Q8HRS IVP Last administered on 09/01/17t 06:02; Start 09/01/17 at 06:00 Vancomycin HCl 1 each 1X ONCE MC ; Start 09/02/17 at 22:00; Stop 09/02/17 at 22:01 Acetaminophen (Tylenol) 650 mg PRN Q6HRS PRN PO MILD PAIN; Start 09/01/17 at 11:30 Amlodipine Besylate (Norvasc) 10 mg DAILY PO ; Start 09/01/17 at 12:30 Aspirin (Children'S Aspirin) 81 mg DAILYWBKFT PO ; Start 09/01/17 at 12:30 Cetirizine HCl (ZyrTEC) 10 mg DAILY PO ; Start 09/01/17 at 12:30 Clonidine HCl (Catapres) 0.1 mg BID PO ; Start 09/01/17 at 12:30 Docusate Sodium (Colace) 100 mg DAILY PO ; Start 09/01/17 at 12:30 Gabapentin (Neurontin) 200 mg BID PO ; Start 09/01/17 at 12:30 Hydralazine HCl (Apresoline) 50 mg TID PO ; Start 09/01/17 at 14:00 Acetaminophen/ Hydrocodone Bitart (Lortab 5/325) 1 tab PRN Q6HRS PRN PO PAIN; Start 09/01/17 at 11:30 Acetaminophen/ Hydrocodone Bitart (Lortab 7.5/325) 1 tab PRN Q4HRS PRN PO PAIN ; Start 09/01/17 at 11:30 Insulin Aspart (NovoLOG) 3 units TIDWMEALS SQ ; Start 09/01/17 at 12:00 Labetalol HCl (Trandate) 200 mg BID PO ; Start 09/01/17 at 12:30 Polyethylene Glycol (miraLAX PACKET) 17 gm DAILY PO ; Start 09/01/17 at 12:30 Sevelamer Carbonate (Renvela) 1,600 mg [id number] PO ; Start 09/01/17 at 13:00 Calcium/Vitamin D (Oscal D 500mg/ 200uts) 1 tab DAILY PO ; Start 09/01/17 at 12 :30 Fluticasone Propionate (Flonase) 2 spray DAILY NS ; Start 09/02/17 at 09:00 Insulin Detemir (Levemir) 7 units QHS SQ ; Start 09/01/17 at 21:00 Multivitamins (Thera M Plus) 1 tab DAILY PO ; Start 09/01/17 at 12:30 Pantoprazole Sodium (Protonix) 40 mg DAILYAC PO ; Start 09/01/17 at 12:30 Vitamin B Complex (Nikhil B) 1 tab DAILY PO ; Start 09/01/17 at 12:30 Insulin Aspart (NovoLOG) 0-12 UNITS QIDACHS SQ ; Start 09/01/17 at 12:00 Active Scripts Active Levaquin (Levofloxacin) 500 Mg Tablet 500 Mg PO Q48H 8 Days Amox Tr-K Clv 500-125 Mg Tab (Amoxicillin/Potassium Clav) 1 Each Tablet 1 Tab PO DAILY 10 Days Novolog Flexpen (Insulin Aspart) 100 Unit/1 Ml Insuln.pen 0 Units SQ TIDWMEALS 30 Days Hydrocodone-Apap 7.5-325 (Hydrocodone Bit/Acetaminophen) 1 Each Tablet 1 Tab PO PRN Q4HRS PRN 10 Days Children's Aspirin (Aspirin) 81 Mg Tab.chew 81 Mg PO DAILYWBKFT 30 Days Cozaar (Losartan Potassium) 50 Mg Tablet 100 Mg PO DAILY Reported Hydrocodone-Apap 5-325 (Hydrocodone Bit/Acetaminophen) 1 Each Tablet 1 Tab PO Q6HRS PRN Zofran Odt (Ondansetron) 4 Mg Tab.rapdis 1 Tab SL Q8HRS PRN Hydralazine Hcl 50 Mg Tablet 1 Tab PO TID Levemir (Insulin Detemir) 100 Unit/1 Ml Vial 7 Unit SQ HS Gabapentin 100 Mg Capsule 200 Mg PO BID Cetirizine Hcl 10 Mg Tablet 1 Tab PO DAILY Thera-M (Multivits,Th W-Fe,Other Min) 1 Each Tablet 1 Each PO DAILY Miralax (Polyethylene Glycol 3350) 17 Gm Powd.pack 1 Packet PO DAILY Colace (Docusate Sodium) 100 Mg Capsule 1 Cap PO DAILY Tylenol (Acetaminophen) 325 Mg Tablet 2 Tab PO PRN Q6HRS PRN Clonidine Hcl 0.1 Mg Tablet 0.1 Mg PO BID Alendronate Sodium 70 Mg Tablet 70 Mg PO Q2WKS Labetalol Hcl 200 Mg Tablet 2 Tab PO DAILY Flonase Allergy Relief (Fluticasone Propionate) 9.9 Ml [place].susp 2 Sprays NS DAILY Calcium 600 + Vit D 400 Caplet (Calcium Carbonate/Vitamin D3) 1 Each Tablet 1 Each PO DAILY Renvela (Sevelamer Carbonate) 800 Mg Tablet 2 Tab PO [id number] Norvasc (Amlodipine Besylate) 10 Mg Tablet 10 Mg PO DAILY Windy-Abby Rx Tablet (Vit B Cmplx 3/Fa/Vit C/Biotin) 1 Each Tablet 1 Each PO DAILY Omeprazole 40 Mg Capsule.dr 40 Mg PO DAILY Allergies Allergies: Coded Allergies: No Known Drug Allergies (Unverified , 11/01/16) ROS General: YES: Fatigue PSYCHOLOGICAL ROS: YES: Anxiety, Depression Eyes: Yes Decreased vision HEENT: YES: Heacaches, Nasal congestion, Nasal discharge ALLERGY AND IMMUNOLOGY: YES: Seasonal Allergies Respiratory: YES: Cough, Orthopnea, Shortness of breath, SOB with excertion Cardiovascular: yes Orthopnea, yes Lt Headedness Gastrointestinal: Yes Constipation Genitourinary: YES Other (ANURIA) Musculoskeletal: Yes Joint Stiffness, Yes Muscular Weakness Neurological: Yes Headaches, Yes Weakness Skin: Yes Dry Skin Physical Exam General: Alert, Oriented X3, Cooperative, No acute distress HEENT: Atraumatic, PERRLA, EOMI, Mucous membr. moist/pink Lungs: Other (BASILAR RALES) Abdomen: Normal bowel sounds, Soft Extremities: No clubbing, No cyanosis Skin: No rashes, No breakdown, No significant lesion Neuro: Normal speech, Cranial nerves 3-12 NL Psych/Mental Status: Mental status NL, Mood NL MUSCULOSKELETAL: No deformity, No swelling Vitals VITALS Vital Signs Date Time Temp Pulse Resp B/P (MAP) Pulse Ox O2 Delivery O2 Flow Rate FiO2 09/01/17 11:00 98.3 87 18 152/77 (102) 94 Nasal Cannula 2.0 98.3 Labs Labs Laboratory Tests Test 08/31/17 18:00 08/31/17 18:50 08/31/17 23:55 09/01/17 05:38 Influenza Type A Antigen Negative (NEGATIVE) Influenza Type B Antigen Negative (NEGATIVE) White Blood Count 9.2 x10^3/uL (4.0-11.0) 9.6 x10^3/uL (4.0-11.0) Red Blood Count 3.80 x10^6/uL (3.50-5.40) 3.45 x10^6/uL (3.50-5.40) Hemoglobin 12.5 g/dL (12.0-15.5) 11.4 g/dL (12.0-15.5) Hematocrit 38.0 % (36.0-47.0) 34.1 % (36.0-47.0) Mean Corpuscular Volume 100 fL (79-100) 99 fL (79-100) Mean Corpuscular Hemoglobin 33 pg (25-35) 33 pg (25-35) Mean Corpuscular Hemoglobin Concent 33 g/dL (31-37) 33 g/dL (31-37) Red Cell Distribution Width 15.4 % (11.5-14.5) 15.3 % (11.5-14.5) Platelet Count 150 x10^3/uL (140-400) 131 x10^3/uL (140-400) Neutrophils (%) (Auto) 76 % (31-73) 71 % (31-73) Lymphocytes (%) (Auto) 12 % (24-48) 18 % (24-48) Monocytes (%) (Auto) 8 % (0-9) 9 % (0-9) Eosinophils (%) (Auto) 3 % (0-3) 2 % (0-3) Basophils (%) (Auto) 1 % (0-3) 1 % (0-3) Neutrophils # (Auto) 7.0 x10^3uL (1.8-7.7) 6.8 x10^3uL (1.8-7.7) Lymphocytes # (Auto) 1.1 x10^3/uL (1.0-4.8) 1.7 x10^3/uL (1.0-4.8) Monocytes # (Auto) 0.7 x10^3/uL (0.0-1.1) 0.8 x10^3/uL (0.0-1.1) Eosinophils # (Auto) 0.2 x10^3/uL (0.0-0.7) 0.2 x10^3/uL (0.0-0.7) Basophils # (Auto) 0.1 x10^3/uL (0.0-0.2) 0.1 x10^3/uL (0.0-0.2) Sodium Level 141 mmol/L (136-145) 141 mmol/L (136-145) Potassium Level 4.3 mmol/L (3.5-5.1) 4.8 mmol/L (3.5-5.1) Chloride Level 102 mmol/L (98-107) 103 mmol/L (98-107) Carbon Dioxide Level 28 mmol/L (21-32) 31 mmol/L (21-32) Anion Gap 11 (6-14) 7 (6-14) Blood Urea Nitrogen 25 mg/dL (7-20) 30 mg/dL (7-20) Creatinine 3.9 mg/dL (0.6-1.0) 4.7 mg/dL (0.6-1.0) Estimated GFR (Cockcroft-Gault) 11.4 9.2 BUN/Creatinine Ratio 6 (6-20) Glucose Level 269 mg/dL (70-99) 149 mg/dL (70-99) Lactic Acid Level 2.3 mmol/L (0.4-2.0) 1.0 mmol/L (0.4-2.0) Calcium Level 7.4 mg/dL (8.5-10.1) 7.3 mg/dL (8.5-10.1) Total Bilirubin 0.4 mg/dL (0.2-1.0) Aspartate Amino Transf (AST/SGOT) 36 U/L (15-37) Alanine Aminotransferase (ALT/SGPT) 22 U/L (14-59) Alkaline Phosphatase 862 U/L (46-116) Total Protein 7.5 g/dL (6.4-8.2) Albumin 3.0 g/dL (3.4-5.0) Albumin/Globulin Ratio 0.7 (1.0-1.7) Test 09/01/17 07:03 Glucose (Fingerstick) 127 mg/dL (70-99) Laboratory Tests Test 08/31/17 18:00 08/31/17 18:50 08/31/17 23:55 09/01/17 05:38 Influenza Type A Antigen Negative (NEGATIVE) Influenza Type B Antigen Negative (NEGATIVE) White Blood Count 9.2 x10^3/uL (4.0-11.0) 9.6 x10^3/uL (4.0-11.0) Red Blood Count 3.80 x10^6/uL (3.50-5.40) 3.45 x10^6/uL (3.50-5.40) Hemoglobin 12.5 g/dL (12.0-15.5) 11.4 g/dL (12.0-15.5) Hematocrit 38.0 % (36.0-47.0) 34.1 % (36.0-47.0) Mean Corpuscular Volume 100 fL (79-100) 99 fL (79-100) Mean Corpuscular Hemoglobin 33 pg (25-35) 33 pg (25-35) Mean Corpuscular Hemoglobin Concent 33 g/dL (31-37) 33 g/dL (31-37) Red Cell Distribution Width 15.4 % (11.5-14.5) 15.3 % (11.5-14.5) Platelet Count 150 x10^3/uL (140-400) 131 x10^3/uL (140-400) Neutrophils (%) (Auto) 76 % (31-73) 71 % (31-73) Lymphocytes (%) (Auto) 12 % (24-48) 18 % (24-48) Monocytes (%) (Auto) 8 % (0-9) 9 % (0-9) Eosinophils (%) (Auto) 3 % (0-3) 2 % (0-3) Basophils (%) (Auto) 1 % (0-3) 1 % (0-3) Neutrophils # (Auto) 7.0 x10^3uL (1.8-7.7) 6.8 x10^3uL (1.8-7.7) Lymphocytes # (Auto) 1.1 x10^3/uL (1.0-4.8) 1.7 x10^3/uL (1.0-4.8) Monocytes # (Auto) 0.7 x10^3/uL (0.0-1.1) 0.8 x10^3/uL (0.0-1.1) Eosinophils # (Auto) 0.2 x10^3/uL (0.0-0.7) 0.2 x10^3/uL (0.0-0.7) Basophils # (Auto) 0.1 x10^3/uL (0.0-0.2) 0.1 x10^3/uL (0.0-0.2) Sodium Level 141 mmol/L (136-145) 141 mmol/L (136-145) Potassium Level 4.3 mmol/L (3.5-5.1) 4.8 mmol/L (3.5-5.1) Chloride Level 102 mmol/L (98-107) 103 mmol/L (98-107) Carbon Dioxide Level 28 mmol/L (21-32) 31 mmol/L (21-32) Anion Gap 11 (6-14) 7 (6-14) Blood Urea Nitrogen 25 mg/dL (7-20) 30 mg/dL (7-20) Creatinine 3.9 mg/dL (0.6-1.0) 4.7 mg/dL (0.6-1.0) Estimated GFR (Cockcroft-Gault) 11.4 9.2 BUN/Creatinine Ratio 6 (6-20) Glucose Level 269 mg/dL (70-99) 149 mg/dL (70-99) Lactic Acid Level 2.3 mmol/L (0.4-2.0) 1.0 mmol/L (0.4-2.0) Calcium Level 7.4 mg/dL (8.5-10.1) 7.3 mg/dL (8.5-10.1) Total Bilirubin 0.4 mg/dL (0.2-1.0) Aspartate Amino Transf (AST/SGOT) 36 U/L (15-37) Alanine Aminotransferase (ALT/SGPT) 22 U/L (14-59) Alkaline Phosphatase 862 U/L (46-116) Total Protein 7.5 g/dL (6.4-8.2) Albumin 3.0 g/dL (3.4-5.0) Albumin/Globulin Ratio 0.7 (1.0-1.7) Test 09/01/17 07:03 Glucose (Fingerstick) 127 mg/dL (70-99) Assessment/Plan Assessment/Plan IMP ESRD-MWF. LAST HAD HD YESTERDAY ANEMIA FEVER PNEUMONIA VS BRONCHITIS DYSPNEA DM II HTN CHF-PROB DIASTOLIC PLAN SUGGEST ECHOCARDIOGRAM ANTIBIOTICS HD EXTRA TODAY UF ABOUT 2.5 LITERS TOLERATED DAKOTA ARIAS MD Sep 01, 2017 12:01
[2017-09-01] MEDS: LABETALOL HCL 200 MG TABLET PO SCH ×2 (12:30→21:00)
[2017-09-01] MEDS: POLYETHYLENE GLYCOL 3350 17 GM PACKET. PO SCH ×2 (12:30→17:00)
[2017-09-01] MEDS: cloNIDine HCL 0.1 MG TABLET PO SCH ×2 (12:30→21:00)
[2017-09-01] MEDS: GABAPENTIN 100 MG CAPSULE. PO SCH ×2 (12:30→22:42)
[2017-09-01] MEDS: SEVELAMER CARBONATE 800 MG TABLET. PO SCH ×2 (13:00→17:58)
--- NOTE | 2017-09-01 14:02 | HP ---
ADMIT DATE: 08/31/2017 CHIEF COMPLAINT: Fever. HISTORY OF PRESENT ILLNESS AND HOSPITAL COURSE: This patient is a 67-year-old female who undergoes routine dialysis due to chronic and end-stage renal failure, began feeling poorly, complaining of cough and noted to have a fever at dialysis. Therefore, she was transferred to the Emergency Room. During Emergency Room evaluation, she was found to have fever of 101 with a nonproductive cough. Chest x-ray showed evidence of pneumonia; therefore, she was admitted for treatment of possible healthcare-acquired pneumonia due to dialysis unit. PAST MEDICAL HISTORY: Significant for: 1. End-stage renal disease, on dialysis. 2. Type 2 diabetes. 3. High cholesterol. 4. Hypertension. 5. Diabetic neuropathy. 6. Diabetic retinopathy. 7. Lumbar spinal stenosis. 8. Cholelithiasis. 9. Hyperlipidemia. FAMILY HISTORY: Significant for mother who of cirrhosis and hepatitis at age 61. Father at age 58 due to cerebrovascular accident and history of diabetes. She has multiple family members with cancer, diabetes and high blood pressure. PAST SURGICAL HISTORY: Significant for tonsillectomy in 1978, tubal ligation, shoulder surgery in 1984, dialysis shunt placement in 2007, renal stent in 2013, hysterectomy in 1978, peritoneal dialysis catheter infection and removal in 2008. SOCIAL HISTORY: Reveals a nonsmoker, does not use alcohol. Lives with daughter. 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 ALLERGIES: THE PATIENT EXHIBITS ALLERGIES TO MORPHINE AND CODEINE, WHICH CAUSE NAUSEA. PHYSICAL EXAMINATION: GENERAL: This is a well-nourished female who is alert and oriented x 3. HEENT: Benign. NECK: Supple. CARDIAC: Regular rate and rhythm. LUNGS: Clear. ABDOMEN: Soft, nontender, without masses. EXTREMITIES: 2+ pulses without edema. NEUROLOGIC: Showed no unilateral findings. ASSESSMENT: 1. Healthcare-acquired pneumonia, suspected. 2. Debilitation. 3. End-stage renal disease, on dialysis. 4. Lactic acidosis. 5. Moderate protein malnutrition. PLAN: To proceed with IV antibiotics. PT and OT modalities, pulmonary toilet. Consult Pulmonary for evaluation of chest x-ray and continue treatments as needed. MARQUITA ELLIS MD DR: WAQAR/ronaldo JOB#: [id number] / [id number]
[2017-09-01] MEDS: VANCOMYCIN PER PHARMACY MC PRN (14:06)
--- NOTE | 2017-09-01 14:09 | CONS ---
DATE OF CONSULTATION: ATTENDING PHYSICIAN: Dr. Banuelos. REASON FOR CONSULTATION: Dyspnea. HISTORY OF PRESENT ILLNESS: The patient is a 67-year-old female who has history of end-stage renal disease. She is on hemodialysis. She has no significant history of tobacco use. She presented to the hospital with complaint of cough and started to have some yellow sputum production and a subjective fever of 101 at home. The patient has some mild shortness of breath. No chest pain, no headache, no nausea, vomiting or diarrhea. She did have some body aches. The patient was seen in the ER, and I have reviewed the patient's chest x-ray. There is elevation in the right hemidiaphragm with associated linear scarring in the right lower lobe. There was no definite consolidation seen. She had a previous CT chest this February, and she had extensive consolidation in the right lower lobe at that time. The radiologist reported as congestive heart failure, I am not impressed with radiographic finding of CHF. Consultation requested for further evaluation and management. PAST MEDICAL HISTORY: Significant for history of bronchitis, type 2 diabetes. End-stage renal disease, on hemodialysis. History of hypertension, history of C. diff, history of foot drop syndrome. PAST SURGICAL HISTORY: , tonsillectomy and tubal ligation. SOCIAL HISTORY: Nonsmoker. ALLERGIES: None. CURRENT MEDICATIONS: Reviewed as listed in the MRAD including antibiotics vancomycin and Zosyn. REVIEW OF SYSTEMS: Twelve-point systems obtained, pertinent positives discussed in my history of present illness, otherwise noncontributory. All systems that were negative were reviewed as well. PHYSICAL EXAMINATION: GENERAL: She is awake, following commands. VITAL SIGNS: Blood pressure 152/77, afebrile, pulse ox 94% on 2 liters. NECK: Supple. LUNGS: Clear. CARDIOVASCULAR: Regular rate and rhythm. ABDOMEN: Soft, obese. EXTREMITIES: Trace ankle edema. LABORATORY DATA: Reviewed. Influenza screen is negative. BUN 13, creatinine 4.7. White cell count 9.5, hemoglobin 11.4 and platelets are 131. IMPRESSION: 1. Acute bronchitis, presenting as purulent sputum production and a fever of 101. Influenza screen is negative. 2. Abnormal chest x-ray with elevated right hemidiaphragm and a linear atelectasis or scarring in the right lower lobe. I do not see any definite consolidation. I do not see obvious congestive heart failure. 3. End-stage renal disease, on hemodialysis. 4. No significant history of tobacco use. RECOMMENDATIONS: 1. I will deescalate antibiotics soon. 2. Continue oxygen at present and wean off when saturation stays above 92%. 3. Bronchodilators. 4. Home medications. 5. Hopefully discharge in 48 hours. YONG WAGNER MD DR: ANNY/ronaldo JOB#: [id number] / [id number]
[2017-09-01] MEDS ORDERED: IV NORMAL SALINE 1000ML BAG 1,000 ML IV PRN (14:38)
[2017-09-01] MEDS ORDERED: DIALYSIS PATIENT. MC PRN (14:45)
[2017-09-01] MEDS: IPRATRPIUM/ALBUTEROL 0.5/2.5MG 3 ML NEBU. NEB SCH ×2 (16:51→19:40)
[2017-09-01] MEDS: amLODIPine BESYLATE 10 MG TABLET PO SCH (16:58)
[2017-09-01] MEDS: DOCUSATE SODIUM 100 MG CAPSULE. PO SCH (16:58)
[2017-09-01] MEDS: ASPIRIN CHEWABLE 81 MG TABLET. PO SCH (16:58)
[2017-09-01] MEDS: CETIRIZINE HCL 10 MG TABLET. PO SCH (16:58)
[2017-09-01] MEDS: VITAMIN B COMPLEX TABLET. PO SCH (16:58)
[2017-09-01] MEDS: MULTIVITAMIN with MINERAL TABLET. PO SCH (16:58)
[2017-09-01] MEDS: PANTOPRAZOLE 40 MG TABLET.DR. PO SCH (16:59)
[2017-09-01] MEDS: CALCIUM CARB/VIT D3 500/200 TABLET. PO SCH (17:00)
[2017-09-01 19:00] VITALS: BP_SYST 140; BP_SYST 155; BP_DIAS 79; BP_DIAS 80
[2017-09-01] MEDS ORDERED: INSULIN DETEMIR 300 UNITS/3 ML INSULN.PEN. SQ SCH (21:00)
[2017-09-01 23:00] VITALS: BP_SYST 59
[2017-09-02 03:00] VITALS: BP 140/52
[2017-09-02 03:16] LABS: HEP B SURFACE ABDY Reactive (.)
[2017-09-02] MEDS ORDERED: VANCOMYCIN RANDOM LEVEL. MC ONE ×2 (06:00→22:00)
[2017-09-02 06:12] LABS: BASO % 1 % (0-3); EOS % 4 % (0-3); HEMATOCRIT 35.9 % (36.0-47.0); HEMOGLOBIN 11.9 g/dL (12.0-15.5); LYMPH # 1.5 x10^3/uL (1.0-4.8); LYMPH % 21 % (24-48); MEAN CORPUSCULAR HEMOGLOBIN 33 pg (25-35); MEAN CORPUSCULAR HGB CONC 33 g/dL (31-37); MEAN CORPUSCULAR VOLUME 98 fL (79-100); MONO % 12 % (0-9); NEUT % 63 % (31-73); PLATELET COUNT 139 x10^3/uL (140-400); RED BLOOD COUNT 3.65 x10^6/uL (3.50-5.40); RED CELL DISTRIBUTION WIDTH 15.1 % (11.5-14.5); WHITE BLOOD COUNT 7.4 x10^3/uL (4.0-11.0)
[2017-09-02] MEDS: SEVELAMER CARBONATE 800 MG TABLET. PO SCH ×2 (06:26→13:00)
[2017-09-02] MEDS: PIPERACILLIN/TAZO IV Push 2.25 GM VIAL. IVP SCH ×2 (06:27→14:00)
[2017-09-02 06:35] LABS: CALCIUM 8.1 mg/dL (8.5-10.1); GFR 8.6; POTASSIUM 4.3 mmol/L (3.5-5.1)
[2017-09-02 07:00] VITALS: BP 148/62
[2017-09-02] MEDS: PANTOPRAZOLE 40 MG TABLET.DR. PO SCH (07:30)
[2017-09-02] MEDS: INSULIN ASPART 300 UNITS/3 ML INSULN.PEN SQ SCH ×6 (07:30→16:41)
[2017-09-02] MEDS: ASPIRIN CHEWABLE 81 MG TABLET. PO SCH (08:00)
[2017-09-02] MEDS: IPRATRPIUM/ALBUTEROL 0.5/2.5MG 3 ML NEBU. NEB SCH ×3 (08:00→15:53)
[2017-09-02] MEDS: VANCOMYCIN PER PHARMACY MC PRN (08:43)
[2017-09-02] MEDS ORDERED: LABE200T2 PO (08:48)
[2017-09-02] MEDS ORDERED: IPRA4AER IH (08:48)
[2017-09-02] MEDS: cloNIDine HCL 0.1 MG TABLET PO SCH (08:52)
[2017-09-02] MEDS: DOCUSATE SODIUM 100 MG CAPSULE. PO SCH (08:52)
[2017-09-02] MEDS: POLYETHYLENE GLYCOL 3350 17 GM PACKET. PO SCH (08:53)
[2017-09-02] MEDS: CALCIUM CARB/VIT D3 500/200 TABLET. PO SCH (08:53)
[2017-09-02] MEDS: VITAMIN B COMPLEX TABLET. PO SCH (08:53)
[2017-09-02] MEDS: HYDROcodone/APAP 5/325MG 1 TAB TABLET PO PRN ×2 (08:53→16:25)
[2017-09-02] MEDS: LABETALOL HCL 200 MG TABLET PO SCH (08:53)
[2017-09-02] MEDS: amLODIPine BESYLATE 10 MG TABLET PO SCH (08:53)
[2017-09-02] MEDS: MULTIVITAMIN with MINERAL TABLET. PO SCH (08:53)
[2017-09-02] MEDS: GABAPENTIN 100 MG CAPSULE. PO SCH (08:53)
[2017-09-02] MEDS: CETIRIZINE HCL 10 MG TABLET. PO SCH (08:54)
[2017-09-02] MEDS ORDERED: FLUTICASONE 50MCG/NASAL SPRAY 16GM BOTTLE. NS SCH (09:00)
--- NOTE | 2017-09-02 10:18 | PDOC ---
PULMONARY PROGRESS NOTES Subjective better Vitals Vital Signs Date Time Temp Pulse Resp B/P (MAP) Pulse Ox O2 Delivery O2 Flow Rate FiO2 09/02/17 08:53 81 148/62 09/02/17 07:00 98.4 18 94 Nasal Cannula 2.0 98.4 General: Alert, Oriented X4, No acute distress HEENT: Other Lungs: Other (decrease bs) Cardiovascular: S1, S2 Abdomen: Soft, Non-tender Neuro Exam: Alert Extremities: No Edema Skin: Warm Labs Laboratory Tests Test 08/31/17 18:00 08/31/17 18:50 08/31/17 23:55 09/01/17 05:38 Influenza Type A Antigen Negative (NEGATIVE) Influenza Type B Antigen Negative (NEGATIVE) White Blood Count 9.2 x10^3/uL (4.0-11.0) 9.6 x10^3/uL (4.0-11.0) Red Blood Count 3.80 x10^6/uL (3.50-5.40) 3.45 x10^6/uL (3.50-5.40) Hemoglobin 12.5 g/dL (12.0-15.5) 11.4 g/dL (12.0-15.5) Hematocrit 38.0 % (36.0-47.0) 34.1 % (36.0-47.0) Mean Corpuscular Volume 100 fL (79-100) 99 fL (79-100) Mean Corpuscular Hemoglobin 33 pg (25-35) 33 pg (25-35) Mean Corpuscular Hemoglobin Concent 33 g/dL (31-37) 33 g/dL (31-37) Red Cell Distribution Width 15.4 % (11.5-14.5) 15.3 % (11.5-14.5) Platelet Count 150 x10^3/uL (140-400) 131 x10^3/uL (140-400) Neutrophils (%) (Auto) 76 % (31-73) 71 % (31-73) Lymphocytes (%) (Auto) 12 % (24-48) 18 % (24-48) Monocytes (%) (Auto) 8 % (0-9) 9 % (0-9) Eosinophils (%) (Auto) 3 % (0-3) 2 % (0-3) Basophils (%) (Auto) 1 % (0-3) 1 % (0-3) Neutrophils # (Auto) 7.0 x10^3uL (1.8-7.7) 6.8 x10^3uL (1.8-7.7) Lymphocytes # (Auto) 1.1 x10^3/uL (1.0-4.8) 1.7 x10^3/uL (1.0-4.8) Monocytes # (Auto) 0.7 x10^3/uL (0.0-1.1) 0.8 x10^3/uL (0.0-1.1) Eosinophils # (Auto) 0.2 x10^3/uL (0.0-0.7) 0.2 x10^3/uL (0.0-0.7) Basophils # (Auto) 0.1 x10^3/uL (0.0-0.2) 0.1 x10^3/uL (0.0-0.2) Sodium Level 141 mmol/L (136-145) 141 mmol/L (136-145) Potassium Level 4.3 mmol/L (3.5-5.1) 4.8 mmol/L (3.5-5.1) Chloride Level 102 mmol/L (98-107) 103 mmol/L (98-107) Carbon Dioxide Level 28 mmol/L (21-32) 31 mmol/L (21-32) Anion Gap 11 (6-14) 7 (6-14) Blood Urea Nitrogen 25 mg/dL (7-20) 30 mg/dL (7-20) Creatinine 3.9 mg/dL (0.6-1.0) 4.7 mg/dL (0.6-1.0) Estimated GFR (Cockcroft-Gault) 11.4 9.2 BUN/Creatinine Ratio 6 (6-20) Glucose Level 269 mg/dL (70-99) 149 mg/dL (70-99) Lactic Acid Level 2.3 mmol/L (0.4-2.0) 1.0 mmol/L (0.4-2.0) Calcium Level 7.4 mg/dL (8.5-10.1) 7.3 mg/dL (8.5-10.1) Total Bilirubin 0.4 mg/dL (0.2-1.0) Aspartate Amino Transf (AST/SGOT) 36 U/L (15-37) Alanine Aminotransferase (ALT/SGPT) 22 U/L (14-59) Alkaline Phosphatase 862 U/L (46-116) Total Protein 7.5 g/dL (6.4-8.2) Albumin 3.0 g/dL (3.4-5.0) Albumin/Globulin Ratio 0.7 (1.0-1.7) Test 09/01/17 07:03 09/01/17 11:58 09/01/17 14:38 09/01/17 16:59 Glucose (Fingerstick) 127 mg/dL (70-99) 160 mg/dL (70-99) 136 mg/dL (70-99) 25-Hydroxy Vitamin D Total 27.5 ng/mL (30-100) Hepatitis B Surface Antigen Negative (Negative) Hepatitis B Surface Antibody Reactive (.) Test 09/01/17 22:41 09/02/17 05:28 09/02/17 07:14 Glucose (Fingerstick) 298 mg/dL (70-99) 127 mg/dL (70-99) White Blood Count 7.4 x10^3/uL (4.0-11.0) Red Blood Count 3.65 x10^6/uL (3.50-5.40) Hemoglobin 11.9 g/dL (12.0-15.5) Hematocrit 35.9 % (36.0-47.0) Mean Corpuscular Volume 98 fL (79-100) Mean Corpuscular Hemoglobin 33 pg (25-35) Mean Corpuscular Hemoglobin Concent 33 g/dL (31-37) Red Cell Distribution Width 15.1 % (11.5-14.5) Platelet Count 139 x10^3/uL (140-400) Neutrophils (%) (Auto) 63 % (31-73) Lymphocytes (%) (Auto) 21 % (24-48) Monocytes (%) (Auto) 12 % (0-9) Eosinophils (%) (Auto) 4 % (0-3) Basophils (%) (Auto) 1 % (0-3) Neutrophils # (Auto) 4.6 x10^3uL (1.8-7.7) Lymphocytes # (Auto) 1.5 x10^3/uL (1.0-4.8) Monocytes # (Auto) 0.9 x10^3/uL (0.0-1.1) Eosinophils # (Auto) 0.3 x10^3/uL (0.0-0.7) Basophils # (Auto) 0.0 x10^3/uL (0.0-0.2) Sodium Level 140 mmol/L (136-145) Potassium Level 4.3 mmol/L (3.5-5.1) Chloride Level 100 mmol/L (98-107) Carbon Dioxide Level 30 mmol/L (21-32) Anion Gap 10 (6-14) Blood Urea Nitrogen 36 mg/dL (7-20) Creatinine 5.0 mg/dL (0.6-1.0) Estimated GFR (Cockcroft-Gault) 8.6 Glucose Level 175 mg/dL (70-99) Calcium Level 8.1 mg/dL (8.5-10.1) Random Vancomycin Level 21.2 mcg/mL Laboratory Tests Test 09/01/17 11:58 09/01/17 14:38 09/01/17 16:59 09/01/17 22:41 Glucose (Fingerstick) 160 mg/dL (70-99) 136 mg/dL (70-99) 298 mg/dL (70-99) 25-Hydroxy Vitamin D Total 27.5 ng/mL (30-100) Hepatitis B Surface Antigen Negative (Negative) Hepatitis B Surface Antibody Reactive (.) Test 09/02/17 05:28 09/02/17 07:14 White Blood Count 7.4 x10^3/uL (4.0-11.0) Red Blood Count 3.65 x10^6/uL (3.50-5.40) Hemoglobin 11.9 g/dL (12.0-15.5) Hematocrit 35.9 % (36.0-47.0) Mean Corpuscular Volume 98 fL (79-100) Mean Corpuscular Hemoglobin 33 pg (25-35) Mean Corpuscular Hemoglobin Concent 33 g/dL (31-37) Red Cell Distribution Width 15.1 % (11.5-14.5) Platelet Count 139 x10^3/uL (140-400) Neutrophils (%) (Auto) 63 % (31-73) Lymphocytes (%) (Auto) 21 % (24-48) Monocytes (%) (Auto) 12 % (0-9) Eosinophils (%) (Auto) 4 % (0-3) Basophils (%) (Auto) 1 % (0-3) Neutrophils # (Auto) 4.6 x10^3uL (1.8-7.7) Lymphocytes # (Auto) 1.5 x10^3/uL (1.0-4.8) Monocytes # (Auto) 0.9 x10^3/uL (0.0-1.1) Eosinophils # (Auto) 0.3 x10^3/uL (0.0-0.7) Basophils # (Auto) 0.0 x10^3/uL (0.0-0.2) Sodium Level 140 mmol/L (136-145) Potassium Level 4.3 mmol/L (3.5-5.1) Chloride Level 100 mmol/L (98-107) Carbon Dioxide Level 30 mmol/L (21-32) Anion Gap 10 (6-14) Blood Urea Nitrogen 36 mg/dL (7-20) Creatinine 5.0 mg/dL (0.6-1.0) Estimated GFR (Cockcroft-Gault) 8.6 Glucose Level 175 mg/dL (70-99) Calcium Level 8.1 mg/dL (8.5-10.1) Random Vancomycin Level 21.2 mcg/mL Glucose (Fingerstick) 127 mg/dL (70-99) Medications Active Scripts Medications Dose Route/Sig Max Daily Dose Days Date Category Hydrocodone-Apap 5-325 (Hydrocodone Bit/Acetaminophen) 1 Each Tablet 1 Tab PO Q6HRS PRN 09/01/17 Reported Levaquin (Levofloxacin) 500 Mg Tablet 500 Mg PO Q48H 8 07/09/17 Rx Amox Tr-K Clv 500-125 Mg Tab (Amoxicillin/Potassium Clav) 1 Each Tablet 1 Tab PO DAILY 10 07/09/17 Rx Zofran Odt (Ondansetron) 4 Mg Tab.rapdis 1 Tab SL Q8HRS PRN 07/04/17 Reported Hydralazine Hcl 50 Mg Tablet 1 Tab PO TID 04/08/17 Reported Levemir (Insulin Detemir) 100 Unit/1 Ml Vial 7 Unit SQ HS 04/08/17 Reported Gabapentin 100 Mg Capsule 200 Mg PO BID 04/08/17 Reported Cetirizine Hcl 10 Mg Tablet 1 Tab PO DAILY 10/29/16 Reported Thera-M (Multivits,Th W-Fe,Other Min) 1 Each Tablet 1 Each PO DAILY 10/29/16 Reported Miralax (Polyethylene Glycol 3350) 17 Gm Powd.pack 1 Packet PO DAILY 10/29/16 Reported Colace (Docusate Sodium) 100 Mg Capsule 1 Cap PO DAILY 10/29/16 Reported Tylenol (Acetaminophen) 325 Mg Tablet 2 Tab PO PRN Q6HRS PRN 10/29/16 Reported Novolog Flexpen (Insulin Aspart) 100 Unit/1 Ml Insuln.pen 0 Units SQ TIDWMEALS 30 09/20/16 Rx Hydrocodone-Apap 7.5-325 (Hydrocodone Bit/Acetaminophen) 1 Each Tablet 1 Tab PO PRN Q4HRS PRN 10 09/20/16 Rx Clonidine Hcl 0.1 Mg Tablet 0.1 Mg PO BID 09/17/16 Reported Alendronate Sodium 70 Mg Tablet 70 Mg PO Q2WKS 09/17/16 Reported Labetalol Hcl 200 Mg Tablet 2 Tab PO DAILY 09/17/16 Reported Flonase Allergy Relief (Fluticasone Propionate) 9.9 Ml [place].susp 2 Sprays NS DAILY 09/17/16 Reported Children's Aspirin (Aspirin) 81 Mg Tab.chew 81 Mg PO DAILYWBKFT 30 11/04/15 Rx Calcium 600 + Vit D 400 Caplet (Calcium Carbonate/Vitamin D3) 1 Each Tablet 1 Each PO DAILY 10/24/15 Reported Renvela (Sevelamer Carbonate) 800 Mg Tablet 2 Tab PO [id number] 12/21/14 Reported Cozaar (Losartan Potassium) 50 Mg Tablet 100 Mg PO DAILY 09/30/14 Rx Norvasc (Amlodipine Besylate) 10 Mg Tablet 10 Mg PO DAILY 11/11/13 Reported Windy-Abby Rx Tablet (Vit B Cmplx 3/Fa/Vit C/Biotin) 1 Each Tablet 1 Each PO DAILY 11/11/13 Reported Omeprazole 40 Mg Capsule.dr 40 Mg PO DAILY 09/01/17 Reported Impression . 1. Acute bronchitis, presenting as purulent sputum production and a fever . Influenza screen is negative. 2. Abnormal chest x-ray with elevated right hemidiaphragm and a linear atelectasis or scarring in the right lower lobe. I do not see any definite consolidation. I do not see obvious congestive heart failure. 3. End-stage renal disease, on hemodialysis. 4. No significant history of tobacco use. Plan . 1. deescalate antibiotics 2. Continue oxygen at present and wean off when saturation stays above 92%. 3. Bronchodilators. 4. Home medications. 5. CXR today with atelectasis RLL, no CHF 5. Hopefully discharge today YONG WAGNER MD Sep 02, 2017 10:18
--- NOTE | 2017-09-02 10:46 | RAD ---
Portable chest, 09/02/2017: History: Shortness of breath, cough Comparison is made to a study from 08/31/2017. The heart is at the upper limits of normal in size. There is calcific plaquing of aorta. There is moderate discoid atelectasis in the right base which has worsened. There is minimal right parahilar infiltrate. There is mild chronic elevation of the right hemidiaphragm. The left lung base is partially obscured by the patient's overlying abdominal pannus. No definite pleural fluid is seen. IMPRESSION: Chronic elevation of the right hemidiaphragm with worsening atelectasis/infiltrate in the right mid and lower chest.
[2017-09-02 11:00] VITALS: BP 121/49
[2017-09-02 11:45] LABS: ALBUMIN 2.6 g/dL (3.4-5.0); ALBUMIN/GLOBULIN RATIO 0.7 (1.0-1.7); CALCIUM 7.9 mg/dL (8.5-10.1); CREATININE 5.6 mg/dL (0.6-1.0); GFR 7.5; POTASSIUM 4.9 mmol/L (3.5-5.1); TOTAL BILIRUBIN 0.5 mg/dL (0.2-1.0); TOTAL PROTEIN 6.6 g/dL (6.4-8.2)
[2017-09-02] MEDS ORDERED: DIALYSIS PATIENT. MC PRN ×2 (12:00)
--- NOTE | 2017-09-02 12:01 | PDOC ---
Renal-Progress Notes Subjective Notes Notes FEELING BETTER BUT STILL VERY TIRED History of Present Illness Hx of present illness BETTER Vitals Vitals Vital Signs Date Time Temp Pulse Resp B/P (MAP) Pulse Ox O2 Delivery O2 Flow Rate FiO2 09/02/17 08:53 81 148/62 09/02/17 07:00 98.4 18 94 Nasal Cannula 2.0 98.4 Weight Weight [ ] I.O. Intake and Output Intake and Output 09/02/17 07:00 Intake Total 1000 ml Output Total 400 ml Balance 600 ml Intake Oral 1000 ml Output Urine Total 400 ml # Bowel Movements 1 Labs Labs Laboratory Tests Test 09/01/17 14:38 09/01/17 16:59 09/01/17 22:41 09/02/17 05:28 25-Hydroxy Vitamin D Total 27.5 ng/mL (30-100) Hepatitis B Surface Antigen Negative (Negative) Hepatitis B Surface Antibody Reactive (.) Glucose (Fingerstick) 136 mg/dL (70-99) 298 mg/dL (70-99) White Blood Count 7.4 x10^3/uL (4.0-11.0) Red Blood Count 3.65 x10^6/uL (3.50-5.40) Hemoglobin 11.9 g/dL (12.0-15.5) Hematocrit 35.9 % (36.0-47.0) Mean Corpuscular Volume 98 fL (79-100) Mean Corpuscular Hemoglobin 33 pg (25-35) Mean Corpuscular Hemoglobin Concent 33 g/dL (31-37) Red Cell Distribution Width 15.1 % (11.5-14.5) Platelet Count 139 x10^3/uL (140-400) Neutrophils (%) (Auto) 63 % (31-73) Lymphocytes (%) (Auto) 21 % (24-48) Monocytes (%) (Auto) 12 % (0-9) Eosinophils (%) (Auto) 4 % (0-3) Basophils (%) (Auto) 1 % (0-3) Neutrophils # (Auto) 4.6 x10^3uL (1.8-7.7) Lymphocytes # (Auto) 1.5 x10^3/uL (1.0-4.8) Monocytes # (Auto) 0.9 x10^3/uL (0.0-1.1) Eosinophils # (Auto) 0.3 x10^3/uL (0.0-0.7) Basophils # (Auto) 0.0 x10^3/uL (0.0-0.2) Sodium Level 140 mmol/L (136-145) Potassium Level 4.3 mmol/L (3.5-5.1) Chloride Level 100 mmol/L (98-107) Carbon Dioxide Level 30 mmol/L (21-32) Anion Gap 10 (6-14) Blood Urea Nitrogen 36 mg/dL (7-20) Creatinine 5.0 mg/dL (0.6-1.0) Estimated GFR (Cockcroft-Gault) 8.6 Glucose Level 175 mg/dL (70-99) Calcium Level 8.1 mg/dL (8.5-10.1) Random Vancomycin Level 21.2 mcg/mL Test 09/02/17 07:14 09/02/17 11:15 Glucose (Fingerstick) 127 mg/dL (70-99) Sodium Level 141 mmol/L (136-145) Potassium Level 4.9 mmol/L (3.5-5.1) Chloride Level 101 mmol/L (98-107) Carbon Dioxide Level 32 mmol/L (21-32) Anion Gap 8 (6-14) Blood Urea Nitrogen 40 mg/dL (7-20) Creatinine 5.6 mg/dL (0.6-1.0) Estimated GFR (Cockcroft-Gault) 7.5 BUN/Creatinine Ratio 7 (6-20) Glucose Level 159 mg/dL (70-99) Calcium Level 7.9 mg/dL (8.5-10.1) Total Bilirubin 0.5 mg/dL (0.2-1.0) Aspartate Amino Transf (AST/SGOT) 25 U/L (15-37) Alanine Aminotransferase (ALT/SGPT) 21 U/L (14-59) Alkaline Phosphatase 658 U/L (46-116) Total Protein 6.6 g/dL (6.4-8.2) Albumin 2.6 g/dL (3.4-5.0) Albumin/Globulin Ratio 0.7 (1.0-1.7) Micro Micro Microbiology 08/31/17 Blood Culture - Preliminary, Resulted NO GROWTH AFTER 1 DAY Review of Systems Constitutional: yes: weakness, alert, oriented Ears/Nose/Throat: Yes: no symptom reported Pulmonary: Yes no symptom reported, Yes dyspnea Gastrointestional: Yes: constipation Genitourinary: Yes: no symptom reported Musculoskeletal: Yes: muscle stiffness Skin: Yes no symptom reported Psychiatric/Neurological: Yes: no symptom reported Endocrine: Yes: no symptom reported Physical Exam General Appearance: no apparent distress Skin: warm Respiratory: decreased breath sounds Heart: S1S2, RRR Abdomen: soft, bowel sounds present Genitourinary: bladder flat Extremities: pulses present, no edema, atrophy Neurology: alert, oriented Musculoskeletal: Osteoarthritis, Other Assessment Assessment IMP BRONCHITIS ANEMIA ESRD DECONDITIONING DM II HTN PLAN HD TODAY UF TO DW ANTIBIOTICS DAKOTA ARIAS MD Sep 02, 2017 12:01
--- NOTE | 2017-09-02 13:19 | PDOC ---
PROGRESS NOTES Subjective Subjective Patient feeling somewhat better but still having cough and weakness. Patient tolerating diet. Pulmonary consult appreciated. Patient is nonambulatory at home and transfers from bed to wheelchair. PT OT eval and treat pending at this time. Possibly changed to by mouth antibiotics and discharged to home today. Still on O2 support at this time will attempt to wean to room air today Objective Objective Vital Signs Date Time Temp Pulse Resp B/P (MAP) Pulse Ox O2 Delivery O2 Flow Rate FiO2 09/02/17 11:00 98.1 77 18 121/49 (73) 96 Nasal Cannula 1.0 98.1 Intake and Output 09/02/17 06:59 Intake Total 1000 ml Output Total 400 ml Balance 600 ml Intake Oral 1000 ml Output Urine Total 400 ml # Bowel Movements 1 Physical Exam Abdomen: Normal bowel sounds Heart: Regular rate Extremities: No edema General: Alert Lungs: Other (coarse breath sounds with occasional mucus plugging.) Assessment Assessment Problems Medical Problems: (1) Lactic acidosis Status: Acute (2) Right lower lobe pneumonia Status: Acute 1. Bronchitis with right-sided atelectasis. 2. Debilitation. 3. End-stage renal disease, on dialysis. 4. Lactic acidosis - resolved 5. Moderate protein malnutrition. PAST MEDICAL HISTORY: Significant for: 1. End-stage renal disease, on dialysis. 2. Type 2 diabetes. 3. High cholesterol. 4. Hypertension. 5. Diabetic neuropathy. 6. Diabetic retinopathy. 7. Lumbar spinal stenosis. 8. Cholelithiasis. 9. Hyperlipidemia. Plan Plan of Care Wean oxygen to room air. Switch to by mouth antibiotics. Discharge to home this afternoon if stable. Comment Review of Relevant I have reviewed the following items cosmo (where applicable) has been applied. Labs Laboratory Tests Test 08/31/17 18:00 08/31/17 18:50 08/31/17 23:55 09/01/17 05:38 Influenza Type A Antigen Negative (NEGATIVE) Influenza Type B Antigen Negative (NEGATIVE) White Blood Count 9.2 x10^3/uL (4.0-11.0) 9.6 x10^3/uL (4.0-11.0) Red Blood Count 3.80 x10^6/uL (3.50-5.40) 3.45 x10^6/uL (3.50-5.40) Hemoglobin 12.5 g/dL (12.0-15.5) 11.4 g/dL (12.0-15.5) Hematocrit 38.0 % (36.0-47.0) 34.1 % (36.0-47.0) Mean Corpuscular Volume 100 fL (79-100) 99 fL (79-100) Mean Corpuscular Hemoglobin 33 pg (25-35) 33 pg (25-35) Mean Corpuscular Hemoglobin Concent 33 g/dL (31-37) 33 g/dL (31-37) Red Cell Distribution Width 15.4 % (11.5-14.5) 15.3 % (11.5-14.5) Platelet Count 150 x10^3/uL (140-400) 131 x10^3/uL (140-400) Neutrophils (%) (Auto) 76 % (31-73) 71 % (31-73) Lymphocytes (%) (Auto) 12 % (24-48) 18 % (24-48) Monocytes (%) (Auto) 8 % (0-9) 9 % (0-9) Eosinophils (%) (Auto) 3 % (0-3) 2 % (0-3) Basophils (%) (Auto) 1 % (0-3) 1 % (0-3) Neutrophils # (Auto) 7.0 x10^3uL (1.8-7.7) 6.8 x10^3uL (1.8-7.7) Lymphocytes # (Auto) 1.1 x10^3/uL (1.0-4.8) 1.7 x10^3/uL (1.0-4.8) Monocytes # (Auto) 0.7 x10^3/uL (0.0-1.1) 0.8 x10^3/uL (0.0-1.1) Eosinophils # (Auto) 0.2 x10^3/uL (0.0-0.7) 0.2 x10^3/uL (0.0-0.7) Basophils # (Auto) 0.1 x10^3/uL (0.0-0.2) 0.1 x10^3/uL (0.0-0.2) Sodium Level 141 mmol/L (136-145) 141 mmol/L (136-145) Potassium Level 4.3 mmol/L (3.5-5.1) 4.8 mmol/L (3.5-5.1) Chloride Level 102 mmol/L (98-107) 103 mmol/L (98-107) Carbon Dioxide Level 28 mmol/L (21-32) 31 mmol/L (21-32) Anion Gap 11 (6-14) 7 (6-14) Blood Urea Nitrogen 25 mg/dL (7-20) 30 mg/dL (7-20) Creatinine 3.9 mg/dL (0.6-1.0) 4.7 mg/dL (0.6-1.0) Estimated GFR (Cockcroft-Gault) 11.4 9.2 BUN/Creatinine Ratio 6 (6-20) Glucose Level 269 mg/dL (70-99) 149 mg/dL (70-99) Lactic Acid Level 2.3 mmol/L (0.4-2.0) 1.0 mmol/L (0.4-2.0) Calcium Level 7.4 mg/dL (8.5-10.1) 7.3 mg/dL (8.5-10.1) Total Bilirubin 0.4 mg/dL (0.2-1.0) Aspartate Amino Transf (AST/SGOT) 36 U/L (15-37) Alanine Aminotransferase (ALT/SGPT) 22 U/L (14-59) Alkaline Phosphatase 862 U/L (46-116) Total Protein 7.5 g/dL (6.4-8.2) Albumin 3.0 g/dL (3.4-5.0) Albumin/Globulin Ratio 0.7 (1.0-1.7) Test 09/01/17 07:03 09/01/17 11:58 09/01/17 14:38 09/01/17 16:59 Glucose (Fingerstick) 127 mg/dL (70-99) 160 mg/dL (70-99) 136 mg/dL (70-99) 25-Hydroxy Vitamin D Total 27.5 ng/mL (30-100) Hepatitis B Surface Antigen Negative (Negative) Hepatitis B Surface Antibody Reactive (.) Test 09/01/17 22:41 09/02/17 05:28 09/02/17 07:14 09/02/17 11:15 Glucose (Fingerstick) 298 mg/dL (70-99) 127 mg/dL (70-99) White Blood Count 7.4 x10^3/uL (4.0-11.0) Red Blood Count 3.65 x10^6/uL (3.50-5.40) Hemoglobin 11.9 g/dL (12.0-15.5) Hematocrit 35.9 % (36.0-47.0) Mean Corpuscular Volume 98 fL (79-100) Mean Corpuscular Hemoglobin 33 pg (25-35) Mean Corpuscular Hemoglobin Concent 33 g/dL (31-37) Red Cell Distribution Width 15.1 % (11.5-14.5) Platelet Count 139 x10^3/uL (140-400) Neutrophils (%) (Auto) 63 % (31-73) Lymphocytes (%) (Auto) 21 % (24-48) Monocytes (%) (Auto) 12 % (0-9) Eosinophils (%) (Auto) 4 % (0-3) Basophils (%) (Auto) 1 % (0-3) Neutrophils # (Auto) 4.6 x10^3uL (1.8-7.7) Lymphocytes # (Auto) 1.5 x10^3/uL (1.0-4.8) Monocytes # (Auto) 0.9 x10^3/uL (0.0-1.1) Eosinophils # (Auto) 0.3 x10^3/uL (0.0-0.7) Basophils # (Auto) 0.0 x10^3/uL (0.0-0.2) Sodium Level 140 mmol/L (136-145) 141 mmol/L (136-145) Potassium Level 4.3 mmol/L (3.5-5.1) 4.9 mmol/L (3.5-5.1) Chloride Level 100 mmol/L (98-107) 101 mmol/L (98-107) Carbon Dioxide Level 30 mmol/L (21-32) 32 mmol/L (21-32) Anion Gap 10 (6-14) 8 (6-14) Blood Urea Nitrogen 36 mg/dL (7-20) 40 mg/dL (7-20) Creatinine 5.0 mg/dL (0.6-1.0) 5.6 mg/dL (0.6-1.0) Estimated GFR (Cockcroft-Gault) 8.6 7.5 Glucose Level 175 mg/dL (70-99) 159 mg/dL (70-99) Calcium Level 8.1 mg/dL (8.5-10.1) 7.9 mg/dL (8.5-10.1) 25-Hydroxy Vitamin D Total 27.4 ng/mL (30-100) Random Vancomycin Level 21.2 mcg/mL BUN/Creatinine Ratio 7 (6-20) Total Bilirubin 0.5 mg/dL (0.2-1.0) Aspartate Amino Transf (AST/SGOT) 25 U/L (15-37) Alanine Aminotransferase (ALT/SGPT) 21 U/L (14-59) Alkaline Phosphatase 658 U/L (46-116) Total Protein 6.6 g/dL (6.4-8.2) Albumin 2.6 g/dL (3.4-5.0) Albumin/Globulin Ratio 0.7 (1.0-1.7) Laboratory Tests Test 09/01/17 14:38 09/01/17 16:59 09/01/17 22:41 09/02/17 05:28 25-Hydroxy Vitamin D Total 27.5 ng/mL (30-100) 27.4 ng/mL (30-100) Hepatitis B Surface Antigen Negative (Negative) Hepatitis B Surface Antibody Reactive (.) Glucose (Fingerstick) 136 mg/dL (70-99) 298 mg/dL (70-99) White Blood Count 7.4 x10^3/uL (4.0-11.0) Red Blood Count 3.65 x10^6/uL (3.50-5.40) Hemoglobin 11.9 g/dL (12.0-15.5) Hematocrit 35.9 % (36.0-47.0) Mean Corpuscular Volume 98 fL (79-100) Mean Corpuscular Hemoglobin 33 pg (25-35) Mean Corpuscular Hemoglobin Concent 33 g/dL (31-37) Red Cell Distribution Width 15.1 % (11.5-14.5) Platelet Count 139 x10^3/uL (140-400) Neutrophils (%) (Auto) 63 % (31-73) Lymphocytes (%) (Auto) 21 % (24-48) Monocytes (%) (Auto) 12 % (0-9) Eosinophils (%) (Auto) 4 % (0-3) Basophils (%) (Auto) 1 % (0-3) Neutrophils # (Auto) 4.6 x10^3uL (1.8-7.7) Lymphocytes # (Auto) 1.5 x10^3/uL (1.0-4.8) Monocytes # (Auto) 0.9 x10^3/uL (0.0-1.1) Eosinophils # (Auto) 0.3 x10^3/uL (0.0-0.7) Basophils # (Auto) 0.0 x10^3/uL (0.0-0.2) Sodium Level 140 mmol/L (136-145) Potassium Level 4.3 mmol/L (3.5-5.1) Chloride Level 100 mmol/L (98-107) Carbon Dioxide Level 30 mmol/L (21-32) Anion Gap 10 (6-14) Blood Urea Nitrogen 36 mg/dL (7-20) Creatinine 5.0 mg/dL (0.6-1.0) Estimated GFR (Cockcroft-Gault) 8.6 Glucose Level 175 mg/dL (70-99) Calcium Level 8.1 mg/dL (8.5-10.1) Random Vancomycin Level 21.2 mcg/mL Test 09/02/17 07:14 09/02/17 11:15 Glucose (Fingerstick) 127 mg/dL (70-99) Sodium Level 141 mmol/L (136-145) Potassium Level 4.9 mmol/L (3.5-5.1) Chloride Level 101 mmol/L (98-107) Carbon Dioxide Level 32 mmol/L (21-32) Anion Gap 8 (6-14) Blood Urea Nitrogen 40 mg/dL (7-20) Creatinine 5.6 mg/dL (0.6-1.0) Estimated GFR (Cockcroft-Gault) 7.5 BUN/Creatinine Ratio 7 (6-20) Glucose Level 159 mg/dL (70-99) Calcium Level 7.9 mg/dL (8.5-10.1) Total Bilirubin 0.5 mg/dL (0.2-1.0) Aspartate Amino Transf (AST/SGOT) 25 U/L (15-37) Alanine Aminotransferase (ALT/SGPT) 21 U/L (14-59) Alkaline Phosphatase 658 U/L (46-116) Total Protein 6.6 g/dL (6.4-8.2) Albumin 2.6 g/dL (3.4-5.0) Albumin/Globulin Ratio 0.7 (1.0-1.7) Microbiology 08/31/17 Blood Culture - Preliminary, Resulted NO GROWTH AFTER 1 DAY Medications Current Medications Vancomycin HCl (Vanco Per Pharmacy) 1 each PRN DAILY PRN MC SEE COMMENTS Last administered on 09/02/17 08:43; Start 08/31/17 at 22:00 Piperacillin Sod/ Tazobactam Sod (Zosyn Per Pharmacy) 1 each PRN DAILY PRN MC SEE COMMENTS; Start 08/31/17 at 21:45 Vancomycin HCl 1.5 gm/Dextrose 500 ml @ 250 mls/hr ONCE ONCE IV Last administered on 08/31/17 22:02; Start 08/31/17 at 21:45; Stop 08/31/17 at 23 :44; Status DC Piperacillin Sod/ Tazobactam Sod (Zosyn) 4.5 gm ONCE ONCE IVP Last administered on 08/31/17 22:02; Start 08/31/17 at 21:45; Stop 08/31/17 at 21 :46; Status DC Ondansetron HCl (Zofran) 4 mg PRN Q8HRS PRN IV NAUSEA/VOMITING Last administered on 09/01/17 00:02; Start 08/31/17 at 22:00; Stop 09/01/17 at 21 :59; Status DC Morphine Sulfate 4 mg PRN Q2HR PRN IV PAIN; Start 08/31/17 at 22:00; Stop at 21:59; Status DC Acetaminophen (Tylenol) 650 mg PRN Q4HRS PRN PO FEVER; Start 08/31/17 at 22:00 ; Stop 09/01/17 at 21:59; Status DC Piperacillin Sod/ Tazobactam Sod (Zosyn) 2.25 gm Q8HRS IVP Last administered on 09/02/17 06:27; Start 09/01/17 at 06:00 Vancomycin HCl 1 each 1X ONCE MC ; Start 09/02/17 at 22:00; Stop 09/02/17 at 22:00; Status DC Acetaminophen (Tylenol) 650 mg PRN Q6HRS PRN PO MILD PAIN; Start 09/01/17 at 11:30 Amlodipine Besylate (Norvasc) 10 mg DAILY PO Last administered on 09/02/17 08 :53; Start 09/01/17 at 12:30 Aspirin (Children'S Aspirin) 81 mg DAILYWBKFT PO Last administered on 08:00; Start 09/01/17 at 12:30 Cetirizine HCl (ZyrTEC) 10 mg DAILY PO Last administered on 09/02/17 08:54; Start 09/01/17 at 12:30 Clonidine HCl (Catapres) 0.1 mg BID PO Last administered on 09/02/17 08:52; Start 09/01/17 at 12:30 Docusate Sodium (Colace) 100 mg DAILY PO Last administered on 09/02/17 08:52 ; Start 09/01/17 at 12:30 Gabapentin (Neurontin) 200 mg BID PO Last administered on 09/02/17 08:53; Start 09/01/17 at 12:30 Hydralazine HCl (Apresoline) 50 mg TID PO Last administered on 09/02/17 08:52 ; Start 09/01/17 at 14:00 Acetaminophen/ Hydrocodone Bitart (Lortab 5/325) 1 tab PRN Q6HRS PRN PO PAIN; Start 09/01/17 at 11:30 Acetaminophen/ Hydrocodone Bitart (Lortab 7.5/325) 1 tab PRN Q4HRS PRN PO PAIN ; Start 09/01/17 at 11:30 Insulin Aspart (NovoLOG) 3 units TIDWMEALS SQ Last administered on 09/02/17 08:00; Start 09/01/17 at 12:00 Labetalol HCl (Trandate) 200 mg BID PO Last administered on 09/02/17 08:53; Start 09/01/17 at 12:30 Polyethylene Glycol (miraLAX PACKET) 17 gm DAILY PO ; Start 09/01/17 at 12:30 Sevelamer Carbonate (Renvela) 1,600 mg [id number] PO Last administered on 06:26; Start 09/01/17 at 13:00 Calcium/Vitamin D (Oscal D 500mg/ 200uts) 1 tab DAILY PO Last administered on 09/02/17 08:53; Start 09/01/17 at 12:30 Fluticasone Propionate (Flonase) 2 spray DAILY NS ; Start 09/02/17 at 09:00 Insulin Detemir (Levemir) 7 units QHS SQ Last administered on 09/01/17 22:50 ; Start 09/01/17 at 21:00 Multivitamins (Thera M Plus) 1 tab DAILY PO Last administered on 09/02/17 08: 53; Start 09/01/17 at 12:30 Pantoprazole Sodium (Protonix) 40 mg DAILYAC PO Last administered on 07:30; Start 09/01/17 at 12:30 Vitamin B Complex (Nikhil B) 1 tab DAILY PO Last administered on 09/02/17 08:53 ; Start 09/01/17 at 12:30 Insulin Aspart (NovoLOG) 0-12 UNITS QIDACHS SQ Last administered on 09/01/17 22:49; Start 09/01/17 at 12:00 Darbepoetin Yeison (Aranesp) 60 mcg WEEKLYHS SQ ; Start 09/08/17 at 21:00 Albuterol/ Ipratropium (Duoneb) 3 ml RTQID NEB Last administered on 09/01/17 19:40; Start 09/01/17 at 16:00 Vancomycin HCl 1 each 1X ONCE MC ; Start 09/02/17 at 06:00; Stop 09/02/17 at 06:01; Status DC Sodium Chloride 1,000 ml @ 1,000 mls/hr Q1H PRN IV hypotension; Start at 14:38; Stop 09/01/17 at 20:37; Status DC Info (PHARMACY MONITORING -- do not chart) 1 each PRN DAILY PRN MC SEE COMMENTS ; Start 09/01/17 at 14:45 Vancomycin HCl 500 mg/Dextrose 100 ml @ 100 mls/hr QMWF IV ; Start 09/02/17 at 16:00 Info (PHARMACY MONITORING -- do not chart) 1 each PRN DAILY PRN MC SEE COMMENTS ; Start 09/02/17 at 12:00; Status UNV Info (PHARMACY MONITORING -- do not chart) 1 each PRN DAILY PRN MC SEE COMMENTS ; Start 09/02/17 at 12:00; Status UNV Active Scripts Active Levaquin (Levofloxacin) 500 Mg Tablet 500 Mg PO Q48H 8 Days Amox Tr-K Clv 500-125 Mg Tab (Amoxicillin/Potassium Clav) 1 Each Tablet 1 Tab PO DAILY 10 Days Novolog Flexpen (Insulin Aspart) 100 Unit/1 Ml Insuln.pen 0 Units SQ TIDWMEALS 30 Days Hydrocodone-Apap 7.5-325 (Hydrocodone Bit/Acetaminophen) 1 Each Tablet 1 Tab PO PRN Q4HRS PRN 10 Days Children's Aspirin (Aspirin) 81 Mg Tab.chew 81 Mg PO DAILYWBKFT 30 Days Cozaar (Losartan Potassium) 50 Mg Tablet 100 Mg PO DAILY Reported Hydrocodone-Apap 5-325 (Hydrocodone Bit/Acetaminophen) 1 Each Tablet 1 Tab PO Q6HRS PRN Zofran Odt (Ondansetron) 4 Mg Tab.rapdis 1 Tab SL Q8HRS PRN Hydralazine Hcl 50 Mg Tablet 1 Tab PO TID Levemir (Insulin Detemir) 100 Unit/1 Ml Vial 7 Unit SQ HS Gabapentin 100 Mg Capsule 200 Mg PO BID Cetirizine Hcl 10 Mg Tablet 1 Tab PO DAILY Thera-M (Multivits, W-Fe,Other Min) 1 Each Tablet 1 Each PO DAILY Miralax (Polyethylene Glycol 3350) 17 Gm Powd.pack 1 Packet PO DAILY Colace (Docusate Sodium) 100 Mg Capsule 1 Cap PO DAILY Tylenol (Acetaminophen) 325 Mg Tablet 2 Tab PO PRN Q6HRS PRN Clonidine Hcl 0.1 Mg Tablet 0.1 Mg PO BID Alendronate Sodium 70 Mg Tablet 70 Mg PO Q2WKS Labetalol Hcl 200 Mg Tablet 2 Tab PO DAILY Flonase Allergy Relief (Fluticasone Propionate) 9.9 Ml [place].susp 2 Sprays NS DAILY Calcium 600 + Vit D 400 Caplet (Calcium Carbonate/Vitamin D3) 1 Each Tablet 1 Each PO DAILY Renvela (Sevelamer Carbonate) 800 Mg Tablet 2 Tab PO [id number] Norvasc (Amlodipine Besylate) 10 Mg Tablet 10 Mg PO DAILY Windy-Abby Rx Tablet (Vit B Cmplx 3/Fa/Vit C/Biotin) 1 Each Tablet 1 Each PO DAILY Omeprazole 40 Mg Capsule.dr 40 Mg PO DAILY Vitals/I & O Vital Sign - Last 24 Hours 09/01/17 09/01/17 09/01/17 09/01/17 16:51 16:58 19:00 19:00 Temp 98.3 98.0 98.3 98.0 Pulse 87 82 75 Resp 18 18 B/P (MAP) 152/77 155/79 (104) 140/80 (100) Pulse Ox 96 96 O2 Delivery High Flow Nasal Cannula Nasal Cannula Room Air O2 Flow Rate 3.0 3.0 09/01/17 09/01/17 09/01/17 09/02/17 19:41 20:00 23:00 03:00 Temp 98.0 99.0 98.0 99.0 Pulse 88 81 Resp 18 B/P (MAP) 59/ 140/52 (81) Pulse Ox 99 2 98 O2 Delivery High Flow Nasal Cannula Nasal Cannula Room Air O2 Flow Rate 3.0 3.0 2.0 09/02/17 09/02/17 09/02/17 09/02/17 07:00 08:00 08:52 08:52 Temp 98.4 98.4 Pulse 81 81 81 Resp 18 B/P (MAP) 148/62 (90) 148/62 148/62 Pulse Ox 94 O2 Delivery Nasal Cannula Nasal Cannula O2 Flow Rate 2.0 1.0 09/02/17 09/02/17 09/02/17 08:53 08:53 11:00 Temp 98.1 98.1 Pulse 81 81 77 Resp 18 B/P (MAP) 148/62 148/62 121/49 (73) Pulse Ox 96 O2 Delivery Nasal Cannula O2 Flow Rate 1.0 Intake and Output 09/01/17 09/01/17 09/02/17 14:59 22:59 06:59 Intake Total 760 ml 240 ml Output Total 0 ml 400 ml Balance 760 ml -160 ml MARQUITA ELLIS MD Sep 02, 2017 13:19
[2017-09-02] MEDS ORDERED: VANCOMYCIN 500 MG in IV DEXTROSE 5% 100 ML IV SCH (16:00)
[2017-09-08] MEDS ORDERED: DARBEPOETIN ALFA 60 MCG/0.3 ML DISP.SYRIN. SQ SCH (21:00)
--- NOTE | 2017-09-24 15:32 | PDOC3 ---
DISCHARGE SUMMARY DISCHARGE SUMMARY: Admit Date:08/31/17 D/c Date: 09/02/17 Admit Dx: 1. Healthcare-acquired pneumonia, suspected. 2. Debilitation. 3. End-stage renal disease, on dialysis. 4. Lactic acidosis. 5. Moderate protein malnutrition. D/C dx: 1. Bronchitis with right-sided atelectasis. 2. Debilitation. 3. End-stage renal disease, on dialysis. 4. Lactic acidosis - resolved 5. Moderate protein malnutrition. Chronic Issues 1. End-stage renal disease, on dialysis. 2. Type 2 diabetes. 3. High cholesterol. 4. Hypertension. 5. Diabetic neuropathy. 6. Diabetic retinopathy. 7. Lumbar spinal stenosis. 8. Cholelithiasis. 9. Hyperlipidemia. This patient is a 67-year-old female who undergoes routine dialysis due to chronic and end-stage renal failure, began feeling poorly, complaining of cough and noted to have a fever at dialysis. Therefore, she was transferred to the Emergency Room. During Emergency Room evaluation, she was found to have fever of 101 with a nonproductive cough. Chest x-ray showed evidence of pneumonia; therefore, she was admitted for treatment of possible healthcare-acquired pneumonia due to dialysis unit. Patient underwent Pulm consult and improved with O2 and IV antibx. Patient returened to baseline and was D/C'd home to F/U with clinic in1 week and dialysis per routine MARQUITA ELLIS MD Sep 24, 2017 15:32
== END 2017-09-02 20:00 | disposition home or self-care (01) | DRG 871 ==
LOC: ER 18:32 → 6 SOUTH 21:39
PROVIDERS: ADMIT Family Medicine; ATTEND Family Medicine
PROC: 5A1D70Z Performance of Urinary Filtration, Intermittent, Less than 6 Hours Per Day (ICD-10-PCS; principal; 2017-09-01)
PROC: 5A1D70Z Performance of Urinary Filtration, Intermittent, Less than 6 Hours Per Day (ICD-10-PCS; 2017-09-02)
DX: A41.9 Sepsis, unspecified organism (principal); J18.9 Pneumonia, unspecified organism; I13.2 Hypertensive heart and chronic kidney disease with heart failure and with stage 5 chronic kidney disease, or end stage renal disease; E44.0 Moderate protein-calorie malnutrition; E87.2 Acidosis; E11.22 Type 2 diabetes mellitus with diabetic chronic kidney disease; E11.42 Type 2 diabetes mellitus with diabetic polyneuropathy; N18.6 End stage renal disease; I50.30 Unspecified diastolic (congestive) heart failure; J20.9 Acute bronchitis, unspecified; E11.40 Type 2 diabetes mellitus with diabetic neuropathy, unspecified; E11.319 Type 2 diabetes mellitus with unspecified diabetic retinopathy without macular edema; D64.9 Anemia, unspecified; E78.5 Hyperlipidemia, unspecified; I25.10 Atherosclerotic heart disease of native coronary artery without angina pectoris; E21.3 Hyperparathyroidism, unspecified; F32.9 Major depressive disorder, single episode, unspecified; M19.90 Unspecified osteoarthritis, unspecified site; M48.061 Spinal stenosis, lumbar region without neurogenic claudication; K21.9 Gastro-esophageal reflux disease without esophagitis; Y95 Nosocomial condition; Z82.3 Family history of stroke; Z82.49 Family history of ischemic heart disease and other diseases of the circulatory system; Z83.3 Family history of diabetes mellitus; Z86.73 Personal history of transient ischemic attack (TIA), and cerebral infarction without residual deficits; Z90.710 Acquired absence of both cervix and uterus; Z99.2 Dependence on renal dialysis; Z87.440 Personal history of urinary (tract) infections; Z68.27 Body mass index [BMI] 27.0-27.9, adult
CPT/HCPCS: 36415; 71010; 71020; 80048; 80053; 80202; 82306; 82962; 83605; 85025; 86706; 87040; 87340; 87341; 87804; 93005; 94250; 94640; 94760; J1815; J2405; J2543; J3370; J7620; 99285-25

== ENCOUNTER 2017-11-14 10:01 | Inpatient (IN) | payer OTHER ==
[2017-11-14 10:59] LABS: BASO % 0 % (0-3); EOS % 0 % (0-3); HEMATOCRIT 37.5 % (36.0-47.0); HEMOGLOBIN 12.2 g/dL (12.0-15.5); LYMPH # 0.6 x10^3/uL (1.0-4.8); LYMPH % 5 % (24-48); MEAN CORPUSCULAR HEMOGLOBIN 32 pg (25-35); MEAN CORPUSCULAR HGB CONC 33 g/dL (31-37); MEAN CORPUSCULAR VOLUME 98 fL (79-100); MONO # 0.5 x10^3/uL (0.0-1.1); MONO % 4 % (0-9); NEUT # 10.9 x10^3uL (1.8-7.7); NEUT % 91 % (31-73); PLATELET COUNT 125 x10^3/uL (140-400); RED BLOOD COUNT 3.84 x10^6/uL (3.50-5.40); RED CELL DISTRIBUTION WIDTH 14.7 % (11.5-14.5)
[2017-11-14 11:04] LABS: ADD MAN DIFF? YES
[2017-11-14 11:07] LABS: ANION GAP 6 (6-14); BLOOD UREA NITROGEN 15 mg/dL (7-20); BUN/CREATININE RATIO 5 (6-20); CALCIUM 7.8 mg/dL (8.5-10.1); CARBON DIOXIDE 30 mmol/L (21-32); CHLORIDE 102 mmol/L (98-107); CREATININE 3.1 mg/dL (0.6-1.0); GFR 14.9; GLUCOSE 143 mg/dL (70-99); POTASSIUM 4.5 mmol/L (3.5-5.1); SODIUM 138 mmol/L (136-145)
[2017-11-14 11:13] LABS: ALBUMIN 3.3 g/dL (3.4-5.0); ALBUMIN/GLOBULIN RATIO 0.7 (1.0-1.7); ALK PHOS 771 U/L (46-116); ALT (SGPT) 22 U/L (14-59); AST (SGOT) 39 U/L (15-37); TOTAL BILIRUBIN 1.2 mg/dL (0.2-1.0); TOTAL PROTEIN 7.9 g/dL (6.4-8.2)
[2017-11-14 11:50] LABS: FECAL OB PT NEGATIVE (NEG); NEG OBC FOB NEG; POS OBC FOB POS
[2017-11-14 12:14] LABS: % BANDS 14 % (0-9); % LYMPHS 4 % (24-48); % MONOS 1 % (0-10); % SEGS 81 % (35-66)
[2017-11-14 12:15] LABS: ANISOCYTOSIS SLIGHT; PLT ESTIMATE DECREASED (ADEQUATE); TOXIC VACUOLATION SLIGHT
[2017-11-14] MEDS: HYDROcodone/APAP 5/325MG 1 TAB TABLET PO ×2 (12:37)
[2017-11-14] MEDS: DOXYCYCLINE HYCLATE 100 MG TABLET PO ×4 (13:49→20:53)
[2017-11-14] MEDS: IPRATRPIUM/ALBUTEROL 0.5/2.5MG 3 ML NEBU. NEB ×6 (14:00→20:20)
[2017-11-14 17:00] LABS: POC GLUCOSE 136 mg/dL (70-99)
[2017-11-14 20:34] LABS: POC GLUCOSE 205 mg/dL (70-99)
[2017-11-14] MEDS: GABAPENTIN 100 MG CAPSULE. PO ×2 (20:53)
[2017-11-14] MEDS: HYDROcodone/APAP 7.5/325MG 1 TAB TABLET PO ×2 (20:54)
[2017-11-14] MEDS: INSULIN DETEMIR 300 UNITS/3 ML INSULN.PEN. SQ ×2 (20:57)
[2017-11-14] MEDS ORDERED: GABAPENTIN 100 MG CAPSULE. PO ×2 (21:00)
[2017-11-14 21:39] LABS: INFLUENZA A PATIENT NEGATIVE (NEGATIVE); INFLUENZA B PATIENT NEGATIVE (NEGATIVE); OBC FLU VALID
[2017-11-15 05:48] LABS: ADD MAN DIFF? NO
[2017-11-15 06:29] LABS: ANION GAP 9 (6-14); BLOOD UREA NITROGEN 27 mg/dL (7-20); CALCIUM 6.6 mg/dL (8.5-10.1); CARBON DIOXIDE 30 mmol/L (21-32); CHLORIDE 104 mmol/L (98-107); CREATININE 5.1 mg/dL (0.6-1.0); GFR 8.4; GLUCOSE 98 mg/dL (70-99); POTASSIUM 3.9 mmol/L (3.5-5.1); SODIUM 143 mmol/L (136-145)
[2017-11-15 07:04] LABS: BASO % 0 % (0-3); EOS % 0 % (0-3); HEMATOCRIT 34.1 % (36.0-47.0); HEMOGLOBIN 11.3 g/dL (12.0-15.5); LYMPH # 1.6 x10^3/uL (1.0-4.8); LYMPH % 12 % (24-48); MEAN CORPUSCULAR HEMOGLOBIN 33 pg (25-35); MEAN CORPUSCULAR HGB CONC 33 g/dL (31-37); MEAN CORPUSCULAR VOLUME 99 fL (79-100); MONO # 0.5 x10^3/uL (0.0-1.1); MONO % 3 % (0-9); NEUT % 85 % (31-73); PLATELET COUNT 107 x10^3/uL (140-400); RED BLOOD COUNT 3.46 x10^6/uL (3.50-5.40); RED CELL DISTRIBUTION WIDTH 15.1 % (11.5-14.5); WHITE BLOOD COUNT 14.2 x10^3/uL (4.0-11.0)
[2017-11-15] MEDS ORDERED: DEXTROSE 50% 25 GM / 50ML DISP.SYRIN. IV ×2 (07:30)
[2017-11-15] MEDS: IPRATRPIUM/ALBUTEROL 0.5/2.5MG 3 ML NEBU. NEB ×8 (07:47→20:40)
[2017-11-15 08:06] LABS: POC GLUCOSE 88 mg/dL (70-99)
[2017-11-15] MEDS ORDERED: NON FORMULARY ITEM (Ipratropium/Albuterol Sulfate (Combivent Respimat Inhal) 2 INH) IH ×2 (09:00)
[2017-11-15] MEDS: FLUTICASONE 50MCG/NASAL SPRAY 16GM BOTTLE. NS ×2 (09:31)
[2017-11-15] MEDS: SEVELAMER CARBONATE 800 MG TABLET. PO ×2 (09:31)
[2017-11-15] MEDS: LABETALOL HCL 200 MG TABLET PO ×2 (09:32)
[2017-11-15] MEDS: GABAPENTIN 100 MG CAPSULE. PO ×6 (09:32→21:08)
[2017-11-15] MEDS: FOLIC/VIT B COMP W-C (RENAL) TABLET. PO ×2 (09:32)
[2017-11-15] MEDS: DOXYCYCLINE HYCLATE 100 MG TABLET PO ×4 (09:33→21:08)
[2017-11-15] MEDS: ASPIRIN CHEWABLE 81 MG TABLET. PO ×2 (09:33)
[2017-11-15] MEDS: amLODIPine BESYLATE 10 MG TABLET PO ×2 (09:33)
[2017-11-15] MEDS: cloNIDine HCL 0.1 MG TABLET PO ×4 (09:34→21:09)
[2017-11-15] MEDS: CALCIUM CARB/VIT D3 500/200 TABLET. PO ×6 (09:34→21:08)
[2017-11-15] MEDS ORDERED: MAGNESIUM SULFATE 2GM 50 ML IV ×2 (10:00)
[2017-11-15] MEDS: CALCIUM ACETATE 667 MG CAPSULE PO ×4 (13:20→17:05)
[2017-11-15] MEDS: LACTOBACILLUS RHAMNOSUS GG 1 CAPSULE. PO ×4 (13:20→21:09)
[2017-11-15] MEDS: cefTRIAXone IV Push 1 GM VIAL. IVP ×2 (13:20)
[2017-11-15] MEDS: CETIRIZINE HCL 10 MG TABLET. PO ×2 (13:21)
[2017-11-15 13:37] LABS: POC GLUCOSE 118 mg/dL (70-99)
[2017-11-15] MEDS: LINEZOLID 600 MG TABLET PO ×2 (17:05)
[2017-11-15 17:53] LABS: POC GLUCOSE 125 mg/dL (70-99)
[2017-11-15 20:50] LABS: POC GLUCOSE 162 mg/dL (70-99)
[2017-11-15] MEDS: INSULIN DETEMIR 300 UNITS/3 ML INSULN.PEN. SQ ×2 (21:16)
[2017-11-15] MEDS: HEPARIN PF for SUB-Q USE 5,000 UNIT/0.5 ML VIAL. SQ ×2 (22:47)
[2017-11-16] MEDS: HEPARIN PF for SUB-Q USE 5,000 UNIT/0.5 ML VIAL. SQ ×6 (06:25→21:41)
[2017-11-16 06:56] LABS: HEMOGLOBIN 10.1 g/dL (12.0-15.5)
[2017-11-16 07:14] LABS: ALBUMIN 2.3 g/dL (3.4-5.0); ANION GAP 10 (6-14); BLOOD UREA NITROGEN 43 mg/dL (7-20); CARBON DIOXIDE 29 mmol/L (21-32); CHLORIDE 102 mmol/L (98-107); GFR 5.8; GLUCOSE 69 mg/dL (70-99); MAGNESIUM 1.4 mg/dL (1.8-2.4); PHOSPHORUS 3.2 mg/dL (2.6-4.7); POTASSIUM 4.2 mmol/L (3.5-5.1); SODIUM 141 mmol/L (136-145)
[2017-11-16 07:51] LABS: POC GLUCOSE 61 mg/dL (70-99)
[2017-11-16] MEDS: IPRATRPIUM/ALBUTEROL 0.5/2.5MG 3 ML NEBU. NEB ×8 (07:59→19:07)
[2017-11-16 08:19] LABS: POC GLUCOSE 128 mg/dL (70-99)
[2017-11-16] MEDS: cloNIDine HCL 0.1 MG TABLET PO ×4 (09:00→21:21)
[2017-11-16] MEDS: DOXYCYCLINE HYCLATE 100 MG TABLET PO ×4 (10:21→21:20)
[2017-11-16] MEDS: CALCIUM ACETATE 667 MG CAPSULE PO ×6 (10:21→17:56)
[2017-11-16] MEDS: GABAPENTIN 100 MG CAPSULE. PO ×6 (10:21→21:20)
[2017-11-16] MEDS: LACTOBACILLUS RHAMNOSUS GG 1 CAPSULE. PO ×4 (10:21→21:20)
[2017-11-16] MEDS: LINEZOLID 600 MG TABLET PO ×4 (10:22→21:37)
[2017-11-16] MEDS: CALCIUM CARB/VIT D3 500/200 TABLET. PO ×6 (10:22→21:21)
[2017-11-16 12:02] LABS: POC GLUCOSE 144 mg/dL (70-99)
[2017-11-16] MEDS ORDERED: IV NORMAL SALINE 1000ML BAG 1,000 ML IV ×4 (12:52)
[2017-11-16] MEDS ORDERED: DIALYSIS PATIENT. MC ×2 (13:00)
[2017-11-16] MEDS ORDERED: LABETALOL 20 MG/4 ML DISP.SYRIN. IVP ×2 (13:00)
[2017-11-16] MEDS ORDERED: cloNIDine HCL 0.1 MG TABLET PO ×2 (13:00)
[2017-11-16] MEDS ORDERED: ACETAMINOPHEN 500 MG TABLET PO ×2 (13:00)
[2017-11-16] MEDS ORDERED: diphenhydrAMINE 50 MG/ML VIAL IV ×4 (13:00)
[2017-11-16] MEDS: ALBUMIN HUMAN 25% 200 ML IV ×2 (15:07)
[2017-11-16 17:14] LABS: POC GLUCOSE 106 mg/dL (70-99)
[2017-11-16] MEDS: ACETAMINOPHEN 325 MG TABLET. PO ×2 (17:52)
[2017-11-16] MEDS: FLUTICASONE 50MCG/NASAL SPRAY 16GM BOTTLE. NS ×2 (17:53)
[2017-11-16] MEDS: LABETALOL HCL 200 MG TABLET PO ×2 (17:54)
[2017-11-16] MEDS: CETIRIZINE HCL 10 MG TABLET. PO ×2 (17:55)
[2017-11-16] MEDS: PANTOPRAZOLE 40 MG TABLET.DR. PO ×2 (17:55)
[2017-11-16] MEDS: FOLIC/VIT B COMP W-C (RENAL) TABLET. PO ×2 (17:55)
[2017-11-16] MEDS: ASPIRIN CHEWABLE 81 MG TABLET. PO ×2 (17:56)
[2017-11-16] MEDS: amLODIPine BESYLATE 10 MG TABLET PO ×2 (17:56)
[2017-11-16] MEDS: cefTRIAXone IV Push 1 GM VIAL. IVP ×2 (17:57)
[2017-11-16] MEDS: INSULIN DETEMIR 300 UNITS/3 ML INSULN.PEN. SQ ×2 (21:30)
[2017-11-16 21:45] LABS: POC GLUCOSE 169 mg/dL (70-99)
[2017-11-16] MEDS: HYDROcodone/APAP 7.5/325MG 1 TAB TABLET PO ×2 (22:45)
[2017-11-17 04:38] LABS: ALBUMIN 3.2 g/dL (3.4-5.0); ANION GAP 8 (6-14); BLOOD UREA NITROGEN 25 mg/dL (7-20); CALCIUM 9.1 mg/dL (8.5-10.1); CARBON DIOXIDE 31 mmol/L (21-32); CHLORIDE 102 mmol/L (98-107); GFR 11.1; GLUCOSE 141 mg/dL (70-99); MAGNESIUM 1.8 mg/dL (1.8-2.4); PHOSPHORUS 3.2 mg/dL (2.6-4.7); POTASSIUM 4.3 mmol/L (3.5-5.1); SODIUM 141 mmol/L (136-145)
[2017-11-17] MEDS: HEPARIN PF for SUB-Q USE 5,000 UNIT/0.5 ML VIAL. SQ ×6 (05:55→22:32)
[2017-11-17 07:57] LABS: POC GLUCOSE 198 mg/dL (70-99)
[2017-11-17] MEDS: LACTOBACILLUS RHAMNOSUS GG 1 CAPSULE. PO ×4 (08:04→20:33)
[2017-11-17] MEDS: CALCIUM ACETATE 667 MG CAPSULE PO ×6 (08:04→17:15)
[2017-11-17] MEDS: FOLIC/VIT B COMP W-C (RENAL) TABLET. PO ×2 (08:05)
[2017-11-17] MEDS: amLODIPine BESYLATE 10 MG TABLET PO ×2 (08:05)
[2017-11-17] MEDS: LABETALOL HCL 200 MG TABLET PO ×2 (08:05)
[2017-11-17] MEDS: DOXYCYCLINE HYCLATE 100 MG TABLET PO ×4 (08:06→20:33)
[2017-11-17] MEDS: CETIRIZINE HCL 10 MG TABLET. PO ×2 (08:06)
[2017-11-17] MEDS: PANTOPRAZOLE 40 MG TABLET.DR. PO ×2 (08:07)
[2017-11-17] MEDS: CALCIUM CARB/VIT D3 500/200 TABLET. PO ×6 (08:07→20:33)
[2017-11-17] MEDS: cloNIDine HCL 0.1 MG TABLET PO ×4 (08:07→20:33)
[2017-11-17] MEDS: ASPIRIN CHEWABLE 81 MG TABLET. PO ×2 (08:07)
[2017-11-17] MEDS: LINEZOLID 600 MG TABLET PO ×4 (08:07→20:33)
[2017-11-17] MEDS: GABAPENTIN 100 MG CAPSULE. PO ×6 (08:07→20:32)
[2017-11-17] MEDS: FLUTICASONE 50MCG/NASAL SPRAY 16GM BOTTLE. NS ×2 (08:08)
[2017-11-17] MEDS: IPRATRPIUM/ALBUTEROL 0.5/2.5MG 3 ML NEBU. NEB ×6 (08:30→15:45)
[2017-11-17] MEDS: ONDANSETRON ODT 4 MG TAB.RAPDIS. PO ×2 (10:52)
[2017-11-17 11:31] LABS: POC GLUCOSE 128 mg/dL (70-99)
[2017-11-17] MEDS: cefTRIAXone IV Push 1 GM VIAL. IVP ×2 (15:31)
[2017-11-17 17:28] LABS: POC GLUCOSE 152 mg/dL (70-99)
[2017-11-17 20:27] LABS: POC GLUCOSE 204 mg/dL (70-99)
[2017-11-17] MEDS: HYDROcodone/APAP 7.5/325MG 1 TAB TABLET PO ×2 (20:32)
[2017-11-17] MEDS: INSULIN DETEMIR 300 UNITS/3 ML INSULN.PEN. SQ ×2 (20:36)
[2017-11-18 04:44] LABS: MAGNESIUM 1.9 mg/dL (1.8-2.4)
[2017-11-18 04:46] LABS: ALBUMIN 3.2 g/dL (3.4-5.0); ANION GAP 7 (6-14); BLOOD UREA NITROGEN 40 mg/dL (7-20); CALCIUM 8.9 mg/dL (8.5-10.1); CARBON DIOXIDE 31 mmol/L (21-32); CHLORIDE 97 mmol/L (98-107); GLUCOSE 205 mg/dL (70-99); PHOSPHORUS 3.4 mg/dL (2.6-4.7); SODIUM 135 mmol/L (136-145)
[2017-11-18] MEDS: HEPARIN PF for SUB-Q USE 5,000 UNIT/0.5 ML VIAL. SQ ×6 (06:00→21:33)
[2017-11-18] MEDS: PANTOPRAZOLE 40 MG TABLET.DR. PO ×2 (07:30)
[2017-11-18] MEDS: CALCIUM ACETATE 667 MG CAPSULE PO ×6 (08:00→17:15)
[2017-11-18] MEDS: ASPIRIN CHEWABLE 81 MG TABLET. PO ×2 (08:00)
[2017-11-18] MEDS: IPRATRPIUM/ALBUTEROL 0.5/2.5MG 3 ML NEBU. NEB ×8 (08:02→18:27)
[2017-11-18 08:13] LABS: POC GLUCOSE 151 mg/dL (70-99)
[2017-11-18] MEDS: cloNIDine HCL 0.1 MG TABLET PO ×4 (09:00→21:10)
[2017-11-18] MEDS: GABAPENTIN 100 MG CAPSULE. PO ×4 (09:00→17:14)
[2017-11-18] MEDS ORDERED: DIALYSIS PATIENT. MC ×4 (09:00)
[2017-11-18] MEDS ORDERED: IV NORMAL SALINE 1000ML BAG 1,000 ML IV ×2 (09:00)
[2017-11-18] MEDS: DOXYCYCLINE HYCLATE 100 MG TABLET PO ×4 (09:00→21:09)
[2017-11-18] MEDS: CETIRIZINE HCL 10 MG TABLET. PO ×2 (09:00)
[2017-11-18] MEDS: LABETALOL HCL 200 MG TABLET PO ×2 (09:00)
[2017-11-18] MEDS: FOLIC/VIT B COMP W-C (RENAL) TABLET. PO ×2 (09:00)
[2017-11-18] MEDS: CALCIUM CARB/VIT D3 500/200 TABLET. PO ×6 (09:00→21:09)
[2017-11-18] MEDS: LINEZOLID 600 MG TABLET PO ×4 (09:00→21:09)
[2017-11-18] MEDS ORDERED: ALBUMIN HUMAN 25% 200 ML IV ×2 (09:00)
[2017-11-18] MEDS: FLUTICASONE 50MCG/NASAL SPRAY 16GM BOTTLE. NS ×2 (09:00)
[2017-11-18] MEDS: LACTOBACILLUS RHAMNOSUS GG 1 CAPSULE. PO ×4 (09:00→21:09)
[2017-11-18] MEDS: amLODIPine BESYLATE 10 MG TABLET PO ×2 (09:00)
[2017-11-18] MEDS: cefTRIAXone IV Push 1 GM VIAL. IVP ×2 (17:15)
[2017-11-18 17:21] LABS: POC GLUCOSE 116 mg/dL (70-99)
[2017-11-18] MEDS: INSULIN DETEMIR 300 UNITS/3 ML INSULN.PEN. SQ ×2 (21:32)
[2017-11-18 22:16] LABS: POC GLUCOSE 141 mg/dL (70-99)
[2017-11-19] MEDS: HYDROcodone/APAP 7.5/325MG 1 TAB TABLET PO ×2 (03:24)
[2017-11-19 04:23] LABS: ALBUMIN 2.9 g/dL (3.4-5.0); ANION GAP 8 (6-14); BLOOD UREA NITROGEN 24 mg/dL (7-20); CALCIUM 8.6 mg/dL (8.5-10.1); CARBON DIOXIDE 31 mmol/L (21-32); CHLORIDE 96 mmol/L (98-107); CREATININE 4.1 mg/dL (0.6-1.0); GFR 10.8; GLUCOSE 135 mg/dL (70-99); PHOSPHORUS 3.2 mg/dL (2.6-4.7); SODIUM 135 mmol/L (136-145)
[2017-11-19] MEDS: HEPARIN PF for SUB-Q USE 5,000 UNIT/0.5 ML VIAL. SQ ×6 (05:27→14:32)
[2017-11-19] MEDS: IPRATRPIUM/ALBUTEROL 0.5/2.5MG 3 ML NEBU. NEB ×8 (07:26→19:54)
[2017-11-19 07:47] LABS: POC GLUCOSE 113 mg/dL (70-99)
[2017-11-19] MEDS: PANTOPRAZOLE 40 MG TABLET.DR. PO ×2 (08:26)
[2017-11-19] MEDS: ASPIRIN CHEWABLE 81 MG TABLET. PO ×2 (09:09)
[2017-11-19] MEDS: LACTOBACILLUS RHAMNOSUS GG 1 CAPSULE. PO ×4 (09:13→21:15)
[2017-11-19] MEDS: LINEZOLID 600 MG TABLET PO ×4 (09:14→21:16)
[2017-11-19] MEDS: CALCIUM CARB/VIT D3 500/200 TABLET. PO ×6 (09:15→21:16)
[2017-11-19] MEDS: FOLIC/VIT B COMP W-C (RENAL) TABLET. PO ×2 (09:15)
[2017-11-19] MEDS: CALCIUM ACETATE 667 MG CAPSULE PO ×6 (09:16→17:00)
[2017-11-19] MEDS: FLUTICASONE 50MCG/NASAL SPRAY 16GM BOTTLE. NS ×2 (09:17)
[2017-11-19] MEDS: amLODIPine BESYLATE 10 MG TABLET PO ×2 (09:18)
[2017-11-19] MEDS: DOXYCYCLINE HYCLATE 100 MG TABLET PO ×4 (09:19→21:17)
[2017-11-19] MEDS: LABETALOL HCL 200 MG TABLET PO ×2 (09:21)
[2017-11-19] MEDS: cloNIDine HCL 0.1 MG TABLET PO ×4 (09:22→21:17)
[2017-11-19] MEDS: CETIRIZINE HCL 10 MG TABLET. PO ×2 (09:23)
[2017-11-19 11:28] LABS: POC GLUCOSE 141 mg/dL (70-99)
[2017-11-19] MEDS: ONDANSETRON ODT 4 MG TAB.RAPDIS. PO ×2 (12:37)
[2017-11-19 13:16] LABS: POC GLUCOSE 124 mg/dL (70-99)
[2017-11-19] MEDS: cefTRIAXone IV Push 1 GM VIAL. IVP ×2 (14:20)
[2017-11-19 17:09] LABS: POC GLUCOSE 156 mg/dL (70-99)
[2017-11-19 17:53] LABS: BASE EXCESS ABG 4 mmol/L (-3-3); HCO3 ABG 30 mmol/L (21-28); PCO2 ABG 54 mmHg (35-46); PH ABG 7.36 (7.35-7.45); PO2 ABG 54 mmHg (65-108); SAT O2 ABG 88 % (92-99)
[2017-11-19 17:54] LABS: FIO2 ABG 32
[2017-11-19 20:25] LABS: POC GLUCOSE 163 mg/dL (70-99)
[2017-11-19] MEDS: INSULIN DETEMIR 300 UNITS/3 ML INSULN.PEN. SQ ×2 (21:26)
[2017-11-20 05:37] LABS: MAGNESIUM 1.9 mg/dL (1.8-2.4)
[2017-11-20 05:39] LABS: ALBUMIN 2.8 g/dL (3.4-5.0); ANION GAP 10 (6-14); BLOOD UREA NITROGEN 45 mg/dL (7-20); CALCIUM 8.8 mg/dL (8.5-10.1); CARBON DIOXIDE 29 mmol/L (21-32); CHLORIDE 97 mmol/L (98-107); CREATININE 6.1 mg/dL (0.6-1.0); GFR 6.8; GLUCOSE 112 mg/dL (70-99); PHOSPHORUS 3.2 mg/dL (2.6-4.7); SODIUM 136 mmol/L (136-145)
[2017-11-20] MEDS: PANTOPRAZOLE 40 MG TABLET.DR. PO ×2 (06:28)
[2017-11-20] MEDS: HEPARIN PF for SUB-Q USE 5,000 UNIT/0.5 ML VIAL. SQ ×6 (06:28→21:11)
[2017-11-20] MEDS: IPRATRPIUM/ALBUTEROL 0.5/2.5MG 3 ML NEBU. NEB ×8 (07:53→20:30)
[2017-11-20] MEDS: LABETALOL HCL 200 MG TABLET PO ×2 (08:09)
[2017-11-20] MEDS: ASPIRIN CHEWABLE 81 MG TABLET. PO ×2 (08:09)
[2017-11-20 08:10] LABS: POC GLUCOSE 76 mg/dL (70-99)
[2017-11-20] MEDS: amLODIPine BESYLATE 10 MG TABLET PO ×2 (08:10)
[2017-11-20] MEDS: CETIRIZINE HCL 10 MG TABLET. PO ×2 (08:10)
[2017-11-20] MEDS: LINEZOLID 600 MG TABLET PO ×4 (08:11→21:09)
[2017-11-20] MEDS: cloNIDine HCL 0.1 MG TABLET PO ×4 (08:11→21:10)
[2017-11-20] MEDS: FOLIC/VIT B COMP W-C (RENAL) TABLET. PO ×2 (08:11)
[2017-11-20] MEDS: DOXYCYCLINE HYCLATE 100 MG TABLET PO ×2 (08:12)
[2017-11-20] MEDS: CALCIUM ACETATE 667 MG CAPSULE PO ×6 (08:12→18:00)
[2017-11-20] MEDS: LACTOBACILLUS RHAMNOSUS GG 1 CAPSULE. PO ×4 (08:12→21:09)
[2017-11-20] MEDS: CALCIUM CARB/VIT D3 500/200 TABLET. PO ×8 (08:12→21:09)
[2017-11-20] MEDS: FLUTICASONE 50MCG/NASAL SPRAY 16GM BOTTLE. NS ×2 (08:13)
[2017-11-20 11:59] LABS: POC GLUCOSE 150 mg/dL (70-99)
[2017-11-20] MEDS: cefTRIAXone IV Push 1 GM VIAL. IVP ×2 (14:23)
[2017-11-20 16:57] LABS: POC GLUCOSE 169 mg/dL (70-99)
[2017-11-20 21:00] LABS: POC GLUCOSE 151 mg/dL (70-99)
[2017-11-20] MEDS: INSULIN DETEMIR 300 UNITS/3 ML INSULN.PEN. SQ ×2 (21:34)
[2017-11-21 05:52] LABS: ALBUMIN 2.7 g/dL (3.4-5.0); ANION GAP 10 (6-14); BLOOD UREA NITROGEN 63 mg/dL (7-20); CALCIUM 8.7 mg/dL (8.5-10.1); CARBON DIOXIDE 31 mmol/L (21-32); CHLORIDE 95 mmol/L (98-107); CREATININE 7.9 mg/dL (0.6-1.0); GFR 5.1; GLUCOSE 127 mg/dL (70-99); PHOSPHORUS 3.5 mg/dL (2.6-4.7); POTASSIUM 4.2 mmol/L (3.5-5.1); SODIUM 136 mmol/L (136-145)
[2017-11-21] MEDS: HEPARIN PF for SUB-Q USE 5,000 UNIT/0.5 ML VIAL. SQ ×6 (05:53→20:53)
[2017-11-21] MEDS: PANTOPRAZOLE 40 MG TABLET.DR. PO ×2 (07:30)
[2017-11-21 07:40] LABS: POC GLUCOSE 118 mg/dL (70-99)
[2017-11-21] MEDS: IPRATRPIUM/ALBUTEROL 0.5/2.5MG 3 ML NEBU. NEB ×8 (08:08→19:32)
[2017-11-21] MEDS: LACTOBACILLUS RHAMNOSUS GG 1 CAPSULE. PO ×4 (08:21→20:44)
[2017-11-21] MEDS: FOLIC/VIT B COMP W-C (RENAL) TABLET. PO ×2 (08:21)
[2017-11-21] MEDS: CALCIUM ACETATE 667 MG CAPSULE PO ×8 (08:21→15:49)
[2017-11-21] MEDS: ASPIRIN CHEWABLE 81 MG TABLET. PO ×2 (08:22)
[2017-11-21] MEDS: CALCIUM CARB/VIT D3 500/200 TABLET. PO ×6 (08:22→20:44)
[2017-11-21] MEDS: LINEZOLID 600 MG TABLET PO ×4 (08:22→20:44)
[2017-11-21] MEDS: cloNIDine HCL 0.1 MG TABLET PO ×4 (08:22→20:45)
[2017-11-21] MEDS: CETIRIZINE HCL 10 MG TABLET. PO ×2 (08:22)
[2017-11-21] MEDS: LABETALOL HCL 200 MG TABLET PO ×2 (08:23)
[2017-11-21] MEDS: amLODIPine BESYLATE 10 MG TABLET PO ×2 (08:23)
[2017-11-21] MEDS: FLUTICASONE 50MCG/NASAL SPRAY 16GM BOTTLE. NS ×2 (08:26)
[2017-11-21] MEDS ORDERED: IV NORMAL SALINE 1000ML BAG 1,000 ML IV ×2 (11:20)
[2017-11-21] MEDS ORDERED: DIALYSIS PATIENT. MC ×4 (11:30)
[2017-11-21] MEDS: ACETAMINOPHEN 325 MG TABLET. PO ×2 (12:54)
[2017-11-21] MEDS: HYDROcodone/APAP 7.5/325MG 1 TAB TABLET PO ×2 (14:43)
[2017-11-21] MEDS: GABAPENTIN 100 MG CAPSULE. PO ×2 (15:49)
[2017-11-21 17:01] LABS: POC GLUCOSE 193 mg/dL (70-99)
[2017-11-21 20:39] LABS: POC GLUCOSE 179 mg/dL (70-99)
[2017-11-21] MEDS: INSULIN DETEMIR 300 UNITS/3 ML INSULN.PEN. SQ ×2 (20:52)
[2017-11-22] MEDS: HEPARIN PF for SUB-Q USE 5,000 UNIT/0.5 ML VIAL. SQ ×6 (04:27→19:47)
[2017-11-22 05:49] LABS: ALBUMIN 2.8 g/dL (3.4-5.0); ANION GAP 8 (6-14); BLOOD UREA NITROGEN 36 mg/dL (7-20); CALCIUM 8.9 mg/dL (8.5-10.1); CARBON DIOXIDE 35 mmol/L (21-32); CHLORIDE 97 mmol/L (98-107); CREATININE 4.7 mg/dL (0.6-1.0); GFR 9.2; GLUCOSE 133 mg/dL (70-99); PHOSPHORUS 3.2 mg/dL (2.6-4.7); POTASSIUM 4.3 mmol/L (3.5-5.1); SODIUM 140 mmol/L (136-145)
[2017-11-22] MEDS: PANTOPRAZOLE 40 MG TABLET.DR. PO ×2 (06:57)
[2017-11-22 07:59] LABS: POC GLUCOSE 110 mg/dL (70-99)
[2017-11-22] MEDS: IPRATRPIUM/ALBUTEROL 0.5/2.5MG 3 ML NEBU. NEB ×8 (08:00→20:17)
[2017-11-22] MEDS: CETIRIZINE HCL 10 MG TABLET. PO ×2 (08:02)
[2017-11-22] MEDS: LINEZOLID 600 MG TABLET PO ×4 (08:02→21:10)
[2017-11-22] MEDS: FLUTICASONE 50MCG/NASAL SPRAY 16GM BOTTLE. NS ×2 (08:02)
[2017-11-22] MEDS: ASPIRIN CHEWABLE 81 MG TABLET. PO ×2 (08:02)
[2017-11-22] MEDS: LACTOBACILLUS RHAMNOSUS GG 1 CAPSULE. PO ×4 (08:02→21:11)
[2017-11-22] MEDS: CALCIUM ACETATE 667 MG CAPSULE PO ×6 (08:02→15:50)
[2017-11-22] MEDS: CALCIUM CARB/VIT D3 500/200 TABLET. PO ×6 (08:02→21:09)
[2017-11-22] MEDS: FOLIC/VIT B COMP W-C (RENAL) TABLET. PO ×2 (08:02)
[2017-11-22] MEDS: LABETALOL HCL 200 MG TABLET PO ×2 (08:03)
[2017-11-22] MEDS: amLODIPine BESYLATE 10 MG TABLET PO ×2 (08:04)
[2017-11-22] MEDS: cloNIDine HCL 0.1 MG TABLET PO ×4 (08:06→21:12)
[2017-11-22] MEDS ORDERED: MAGNESIUM SULFATE 2GM 50 ML IV ×2 (10:45)
[2017-11-22 18:06] LABS: POC GLUCOSE 152 mg/dL (70-99)
[2017-11-22] MEDS: DARBEPOETIN ALFA 60 MCG/0.3 ML DISP.SYRIN. SQ ×2 (21:16)
[2017-11-22] MEDS: INSULIN DETEMIR 300 UNITS/3 ML INSULN.PEN. SQ ×2 (21:20)
[2017-11-22 21:22] LABS: POC GLUCOSE 165 mg/dL (70-99)
[2017-11-22] MEDS: PROMETH/CODEINE 6.25/10MG 5 ML SYRUP. PO ×2 (21:24)
[2017-11-22] MEDS: HYDROcodone/APAP 7.5/325MG 1 TAB TABLET PO ×2 (21:24)
[2017-11-23 03:46] LABS: HEMOGLOBIN 10.2 g/dL (12.0-15.5)
[2017-11-23] MEDS: HEPARIN PF for SUB-Q USE 5,000 UNIT/0.5 ML VIAL. SQ ×6 (04:47→22:00)
[2017-11-23] MEDS: PANTOPRAZOLE 40 MG TABLET.DR. PO ×2 (07:30)
[2017-11-23] MEDS: ASPIRIN CHEWABLE 81 MG TABLET. PO ×2 (08:00)
[2017-11-23] MEDS: CALCIUM ACETATE 667 MG CAPSULE PO ×8 (08:00→18:28)
[2017-11-23] MEDS: cloNIDine HCL 0.1 MG TABLET PO ×4 (08:04→20:33)
[2017-11-23] MEDS: amLODIPine BESYLATE 10 MG TABLET PO ×2 (08:04)
[2017-11-23] MEDS: CALCIUM CARB/VIT D3 500/200 TABLET. PO ×6 (08:04→20:34)
[2017-11-23] MEDS: LABETALOL HCL 200 MG TABLET PO ×2 (08:04)
[2017-11-23] MEDS: LACTOBACILLUS RHAMNOSUS GG 1 CAPSULE. PO ×4 (08:04→20:35)
[2017-11-23] MEDS: FOLIC/VIT B COMP W-C (RENAL) TABLET. PO ×2 (08:04)
[2017-11-23] MEDS: CETIRIZINE HCL 10 MG TABLET. PO ×2 (08:05)
[2017-11-23] MEDS: LINEZOLID 600 MG TABLET PO ×4 (08:05→20:35)
[2017-11-23] MEDS: IPRATRPIUM/ALBUTEROL 0.5/2.5MG 3 ML NEBU. NEB ×8 (08:16→20:51)
[2017-11-23] MEDS: FLUTICASONE 50MCG/NASAL SPRAY 16GM BOTTLE. NS ×2 (08:17)
[2017-11-23 12:50] LABS: POC GLUCOSE 162 mg/dL (70-99)
[2017-11-23] MEDS ORDERED: IV NORMAL SALINE 1000ML BAG 1,000 ML IV ×4 (14:01)
[2017-11-23] MEDS ORDERED: ACETAMINOPHEN 500 MG TABLET PO ×2 (14:15)
[2017-11-23] MEDS ORDERED: DIALYSIS PATIENT. MC ×4 (14:15)
[2017-11-23] MEDS ORDERED: diphenhydrAMINE 50 MG/ML VIAL IV ×4 (14:15)
[2017-11-23] MEDS ORDERED: ALBUMIN HUMAN 25% 200 ML IV ×2 (14:15)
[2017-11-23] MEDS ORDERED: 0.9 % SODIUM CHLORIDE 10 ML DISP.SYRIN. IV ×4 (14:15)
[2017-11-23] MEDS: GABAPENTIN 100 MG CAPSULE. PO ×4 (14:52→18:28)
[2017-11-23 18:22] LABS: POC GLUCOSE 83 mg/dL (70-99)
[2017-11-23] MEDS: HYDROcodone/APAP 7.5/325MG 1 TAB TABLET PO ×2 (20:32)
[2017-11-23] MEDS: PROMETH/CODEINE 6.25/10MG 5 ML SYRUP. PO ×2 (20:34)
[2017-11-23 21:04] LABS: POC GLUCOSE 156 mg/dL (70-99)
[2017-11-23] MEDS: INSULIN DETEMIR 300 UNITS/3 ML INSULN.PEN. SQ ×2 (21:49)
[2017-11-24] MEDS: HEPARIN PF for SUB-Q USE 5,000 UNIT/0.5 ML VIAL. SQ ×6 (05:55→21:13)
[2017-11-24] MEDS: IPRATRPIUM/ALBUTEROL 0.5/2.5MG 3 ML NEBU. NEB ×8 (07:42→20:28)
[2017-11-24 08:01] LABS: POC GLUCOSE 95 mg/dL (70-99)
[2017-11-24] MEDS: CALCIUM ACETATE 667 MG CAPSULE PO ×6 (08:55→18:25)
[2017-11-24] MEDS: PANTOPRAZOLE 40 MG TABLET.DR. PO ×2 (08:55)
[2017-11-24] MEDS: ASPIRIN CHEWABLE 81 MG TABLET. PO ×2 (08:55)
[2017-11-24] MEDS: LACTOBACILLUS RHAMNOSUS GG 1 CAPSULE. PO ×4 (08:56→21:05)
[2017-11-24] MEDS: CALCIUM CARB/VIT D3 500/200 TABLET. PO ×6 (08:56→21:05)
[2017-11-24] MEDS: amLODIPine BESYLATE 10 MG TABLET PO ×2 (08:56)
[2017-11-24] MEDS: cloNIDine HCL 0.1 MG TABLET PO ×4 (08:56→21:06)
[2017-11-24] MEDS: FOLIC/VIT B COMP W-C (RENAL) TABLET. PO ×2 (08:57)
[2017-11-24] MEDS: CETIRIZINE HCL 10 MG TABLET. PO ×2 (08:57)
[2017-11-24] MEDS: LINEZOLID 600 MG TABLET PO ×4 (08:57→21:06)
[2017-11-24] MEDS: LABETALOL HCL 200 MG TABLET PO ×2 (09:01)
[2017-11-24] MEDS: FLUTICASONE 50MCG/NASAL SPRAY 16GM BOTTLE. NS ×2 (09:01)
[2017-11-24 11:55] LABS: POC GLUCOSE 196 mg/dL (70-99)
[2017-11-24 17:07] LABS: POC GLUCOSE 128 mg/dL (70-99)
[2017-11-24 20:40] LABS: POC GLUCOSE 218 mg/dL (70-99)
[2017-11-24] MEDS: HYDROcodone/APAP 7.5/325MG 1 TAB TABLET PO ×2 (21:06)
[2017-11-24] MEDS: INSULIN DETEMIR 300 UNITS/3 ML INSULN.PEN. SQ ×2 (21:11)
[2017-11-25] MEDS: HEPARIN PF for SUB-Q USE 5,000 UNIT/0.5 ML VIAL. SQ ×6 (04:53→21:21)
[2017-11-25 05:22] LABS: ALBUMIN 2.7 g/dL (3.4-5.0); ANION GAP 9 (6-14); BLOOD UREA NITROGEN 49 mg/dL (7-20); CALCIUM 9.1 mg/dL (8.5-10.1); CARBON DIOXIDE 30 mmol/L (21-32); CHLORIDE 100 mmol/L (98-107); GLUCOSE 121 mg/dL (70-99); SODIUM 139 mmol/L (136-145)
[2017-11-25 05:28] LABS: MAGNESIUM 2.1 mg/dL (1.8-2.4)
[2017-11-25] MEDS: IV RINGERS,LACTATED 1000ML 1,000 ML IV ×2 (06:38)
[2017-11-25] MEDS ORDERED: LIDOCAINE 1% PF 2 ML VIAL. ID ×2 (07:00)
[2017-11-25] MEDS ORDERED: PROCHLORPERAZINE 10 MG/2 ML VIAL. IV ×2 (07:00)
[2017-11-25] MEDS ORDERED: ONDANSETRON PF 4 MG/2 ML VIAL. IV ×2 (07:00)
[2017-11-25] MEDS ORDERED: fentaNYL PF VIAL 100 MCG/2 ML VIAL IV ×4 (07:00)
[2017-11-25] MEDS ORDERED: MORPHINE SULFATE 2 MG/ML DISP.SYRIN. IV ×2 (07:00)
[2017-11-25] MEDS ORDERED: HYDROmorphone 2 MG/ML VIAL IV ×2 (07:00)
[2017-11-25 07:23] LABS: HEMOGLOBIN 10.4 g/dL (12.0-15.5)
[2017-11-25] MEDS: PANTOPRAZOLE 40 MG TABLET.DR. PO ×2 (07:30)
[2017-11-25 07:56] LABS: POC GLUCOSE 117 mg/dL (70-99)
[2017-11-25] MEDS: IPRATRPIUM/ALBUTEROL 0.5/2.5MG 3 ML NEBU. NEB ×6 (07:56→20:13)
[2017-11-25] MEDS: CALCIUM ACETATE 667 MG CAPSULE PO ×6 (08:00→18:44)
[2017-11-25] MEDS: ASPIRIN CHEWABLE 81 MG TABLET. PO ×2 (08:00)
[2017-11-25] MEDS: FLUTICASONE 50MCG/NASAL SPRAY 16GM BOTTLE. NS ×2 (09:00)
[2017-11-25] MEDS: LINEZOLID 600 MG TABLET PO ×4 (09:00→21:10)
[2017-11-25] MEDS: LABETALOL HCL 200 MG TABLET PO ×2 (09:00)
[2017-11-25] MEDS: CALCIUM CARB/VIT D3 500/200 TABLET. PO ×6 (09:00→21:10)
[2017-11-25] MEDS: LACTOBACILLUS RHAMNOSUS GG 1 CAPSULE. PO ×4 (09:00→21:10)
[2017-11-25] MEDS: CETIRIZINE HCL 10 MG TABLET. PO ×2 (09:00)
[2017-11-25] MEDS: cloNIDine HCL 0.1 MG TABLET PO ×4 (09:00→21:11)
[2017-11-25] MEDS: FOLIC/VIT B COMP W-C (RENAL) TABLET. PO ×2 (09:00)
[2017-11-25] MEDS: amLODIPine BESYLATE 10 MG TABLET PO ×2 (09:00)
[2017-11-25] MEDS ORDERED: EPINEPHrine 1 MG/ML VIAL ET ×2 (11:00)
[2017-11-25] MEDS: IV NORMAL SALINE 1000ML BAG 1,000 ML IV ×4 (11:13→21:15)
[2017-11-25] MEDS ORDERED: PROPOFOL 20 ML IV ×2 (11:22)
[2017-11-25] MEDS ORDERED: DIALYSIS PATIENT. MC ×4 (12:15)
[2017-11-25] MEDS: GABAPENTIN 100 MG CAPSULE. PO ×2 (16:00)
[2017-11-25] MEDS: HYDROcodone/APAP 7.5/325MG 1 TAB TABLET PO ×2 (17:05)
[2017-11-25 21:02] LABS: POC GLUCOSE 183 mg/dL (70-99)
[2017-11-25] MEDS: INSULIN DETEMIR 300 UNITS/3 ML INSULN.PEN. SQ ×2 (21:22)
[2017-11-26] MEDS: HYDROcodone/APAP 7.5/325MG 1 TAB TABLET PO ×2 (05:26)
[2017-11-26] MEDS: HEPARIN PF for SUB-Q USE 5,000 UNIT/0.5 ML VIAL. SQ ×6 (05:27→20:50)
[2017-11-26 06:37] LABS: MAGNESIUM 1.9 mg/dL (1.8-2.4)
[2017-11-26] MEDS: IV NORMAL SALINE 1000ML BAG 1,000 ML IV ×4 (07:15→16:31)
[2017-11-26] MEDS: IPRATRPIUM/ALBUTEROL 0.5/2.5MG 3 ML NEBU. NEB ×8 (07:29→19:40)
[2017-11-26] MEDS: PANTOPRAZOLE 40 MG TABLET.DR. PO ×2 (07:42)
[2017-11-26] MEDS: LINEZOLID 600 MG TABLET PO ×4 (07:42→21:00)
[2017-11-26] MEDS: LACTOBACILLUS RHAMNOSUS GG 1 CAPSULE. PO ×4 (07:42→20:56)
[2017-11-26] MEDS: ASPIRIN CHEWABLE 81 MG TABLET. PO ×2 (07:42)
[2017-11-26] MEDS: CALCIUM CARB/VIT D3 500/200 TABLET. PO ×6 (07:44→21:01)
[2017-11-26] MEDS: CETIRIZINE HCL 10 MG TABLET. PO ×2 (07:44)
[2017-11-26] MEDS: FOLIC/VIT B COMP W-C (RENAL) TABLET. PO ×2 (07:44)
[2017-11-26] MEDS: amLODIPine BESYLATE 10 MG TABLET PO ×2 (07:44)
[2017-11-26] MEDS: cloNIDine HCL 0.1 MG TABLET PO ×4 (07:45→20:56)
[2017-11-26] MEDS: CALCIUM ACETATE 667 MG CAPSULE PO ×6 (07:46→17:43)
[2017-11-26] MEDS: LABETALOL HCL 200 MG TABLET PO ×2 (07:46)
[2017-11-26 08:06] LABS: POC GLUCOSE 109 mg/dL (70-99)
[2017-11-26] MEDS: BUDESONIDE 0.5 MG/2 ML NEBU. NEB ×4 (09:30→19:40)
[2017-11-26] MEDS: FLUTICASONE 50MCG/NASAL SPRAY 16GM BOTTLE. NS ×2 (09:30)
[2017-11-26 09:42] LABS: HEMATOCRIT 30.9 % (36.0-47.0); HEMOGLOBIN 10.3 g/dL (12.0-15.5); MEAN CORPUSCULAR HEMOGLOBIN 33 pg (25-35); MEAN CORPUSCULAR HGB CONC 33 g/dL (31-37); MEAN CORPUSCULAR VOLUME 100 fL (79-100); PLATELET COUNT 117 x10^3/uL (140-400); RED CELL DISTRIBUTION WIDTH 14.8 % (11.5-14.5); WHITE BLOOD COUNT 6.5 x10^3/uL (4.0-11.0)
[2017-11-26 12:05] LABS: POC GLUCOSE 167 mg/dL (70-99)
[2017-11-26 16:05] LABS: POC GLUCOSE 202 mg/dL (70-99)
[2017-11-26] MEDS: ONDANSETRON ODT 4 MG TAB.RAPDIS. PO ×2 (20:56)
[2017-11-26 21:08] LABS: POC GLUCOSE 212 mg/dL (70-99)
[2017-11-26] MEDS: INSULIN DETEMIR 300 UNITS/3 ML INSULN.PEN. SQ ×2 (21:29)
[2017-11-27] MEDS: IV NORMAL SALINE 1000ML BAG 1,000 ML IV ×2 (03:15)
[2017-11-27 05:49] LABS: MAGNESIUM 2.3 mg/dL (1.8-2.4)
[2017-11-27] MEDS: HEPARIN PF for SUB-Q USE 5,000 UNIT/0.5 ML VIAL. SQ ×6 (06:20→20:46)
[2017-11-27] MEDS: IPRATRPIUM/ALBUTEROL 0.5/2.5MG 3 ML NEBU. NEB ×8 (07:30→20:26)
[2017-11-27] MEDS: BUDESONIDE 0.5 MG/2 ML NEBU. NEB ×4 (07:30→20:26)
[2017-11-27 07:32] LABS: POC GLUCOSE 153 mg/dL (70-99)
[2017-11-27] MEDS: FLUTICASONE 50MCG/NASAL SPRAY 16GM BOTTLE. NS ×2 (08:31)
[2017-11-27] MEDS: CALCIUM ACETATE 667 MG CAPSULE PO ×6 (08:32→17:28)
[2017-11-27] MEDS: amLODIPine BESYLATE 10 MG TABLET PO ×2 (08:32)
[2017-11-27] MEDS: FOLIC/VIT B COMP W-C (RENAL) TABLET. PO ×2 (08:32)
[2017-11-27] MEDS: LACTOBACILLUS RHAMNOSUS GG 1 CAPSULE. PO ×4 (08:33→20:37)
[2017-11-27] MEDS: LINEZOLID 600 MG TABLET PO ×2 (08:33)
[2017-11-27] MEDS: cloNIDine HCL 0.1 MG TABLET PO ×4 (08:33→20:38)
[2017-11-27] MEDS: CALCIUM CARB/VIT D3 500/200 TABLET. PO ×6 (08:33→20:37)
[2017-11-27] MEDS: PANTOPRAZOLE 40 MG TABLET.DR. PO ×2 (08:34)
[2017-11-27] MEDS: CETIRIZINE HCL 10 MG TABLET. PO ×2 (08:34)
[2017-11-27] MEDS: ASPIRIN CHEWABLE 81 MG TABLET. PO ×2 (08:34)
[2017-11-27] MEDS: LABETALOL HCL 200 MG TABLET PO ×2 (08:34)
[2017-11-27] MEDS: POLYETHYLENE GLYCOL 3350 17 GM PACKET. PO ×2 (09:30)
[2017-11-27 12:07] LABS: POC GLUCOSE 185 mg/dL (70-99)
[2017-11-27 16:55] LABS: POC GLUCOSE 253 mg/dL (70-99)
[2017-11-27 20:41] LABS: POC GLUCOSE 189 mg/dL (70-99)
[2017-11-27] MEDS: INSULIN DETEMIR 300 UNITS/3 ML INSULN.PEN. SQ ×2 (20:45)
[2017-11-28 05:34] LABS: HEMOGLOBIN 9.4 g/dL (12.0-15.5)
[2017-11-28 05:48] LABS: ANION GAP 7 (6-14); BLOOD UREA NITROGEN 66 mg/dL (7-20); CALCIUM 9.1 mg/dL (8.5-10.1); CARBON DIOXIDE 32 mmol/L (21-32); CHLORIDE 95 mmol/L (98-107); CREATININE 7.6 mg/dL (0.6-1.0); GFR 5.3; GLUCOSE 124 mg/dL (70-99); POTASSIUM 4.5 mmol/L (3.5-5.1); SODIUM 134 mmol/L (136-145)
[2017-11-28] MEDS: HEPARIN PF for SUB-Q USE 5,000 UNIT/0.5 ML VIAL. SQ ×4 (06:00→12:48)
[2017-11-28] MEDS: PANTOPRAZOLE 40 MG TABLET.DR. PO ×2 (07:11)
[2017-11-28] MEDS: FLUTICASONE 50MCG/NASAL SPRAY 16GM BOTTLE. NS ×2 (07:12)
[2017-11-28] MEDS: ASPIRIN CHEWABLE 81 MG TABLET. PO ×2 (07:12)
[2017-11-28] MEDS: CALCIUM ACETATE 667 MG CAPSULE PO ×6 (07:12→14:40)
[2017-11-28] MEDS: POLYETHYLENE GLYCOL 3350 17 GM PACKET. PO ×2 (07:13)
[2017-11-28] MEDS: cloNIDine HCL 0.1 MG TABLET PO ×2 (07:13)
[2017-11-28] MEDS: LACTOBACILLUS RHAMNOSUS GG 1 CAPSULE. PO ×2 (07:13)
[2017-11-28] MEDS: FOLIC/VIT B COMP W-C (RENAL) TABLET. PO ×2 (07:14)
[2017-11-28] MEDS: amLODIPine BESYLATE 10 MG TABLET PO ×2 (07:14)
[2017-11-28] MEDS: CALCIUM CARB/VIT D3 500/200 TABLET. PO ×4 (07:14→12:48)
[2017-11-28] MEDS: CETIRIZINE HCL 10 MG TABLET. PO ×2 (07:15)
[2017-11-28] MEDS: LABETALOL HCL 200 MG TABLET PO ×2 (07:15)
[2017-11-28 07:29] LABS: POC GLUCOSE 135 mg/dL (70-99)
[2017-11-28] MEDS: BUDESONIDE 0.5 MG/2 ML NEBU. NEB ×2 (07:30)
[2017-11-28] MEDS: IPRATRPIUM/ALBUTEROL 0.5/2.5MG 3 ML NEBU. NEB ×6 (07:30→15:51)
[2017-11-28 12:16] LABS: POC GLUCOSE 170 mg/dL (70-99)
[2017-11-28 12:24] LABS: BASE EXCESS ABG 1 mmol/L (-3-3); HCO3 ABG 27 mmol/L (21-28); PCO2 ABG 49 mmHg (35-46); PH ABG 7.36 (7.35-7.45); PO2 ABG 97 mmHg (65-108); SAT O2 ABG 97 % (92-99)
[2017-11-28] MEDS: GABAPENTIN 100 MG CAPSULE. PO ×2 (14:39)
[2017-11-28] MEDS ORDERED: IV NORMAL SALINE 1000ML BAG 1,000 ML IV ×4 (16:50)
[2017-11-28] MEDS ORDERED: DIALYSIS PATIENT. MC ×4 (17:00)
== END 2017-11-28 20:30 | disposition home or self-care (01) | DRG 166 ==
LOC: ER 10:01 → 6 SOUTH 13:19
PROC: 0B9J8ZZ Drainage of Left Lower Lung Lobe, Via Natural or Artificial Opening Endoscopic (ICD-10-PCS; principal; 2017-11-25 11:30)
PROC: 0B9F8ZZ Drainage of Right Lower Lung Lobe, Via Natural or Artificial Opening Endoscopic (ICD-10-PCS; 2017-11-25 11:30)
PROC: 0B938ZZ Drainage of Right Main Bronchus, Via Natural or Artificial Opening Endoscopic (ICD-10-PCS; 2017-11-25 11:30)
PROC: 0B978ZZ Drainage of Left Main Bronchus, Via Natural or Artificial Opening Endoscopic (ICD-10-PCS; 2017-11-25 11:30)
PROC: 5A1D70Z Performance of Urinary Filtration, Intermittent, Less than 6 Hours Per Day (ICD-10-PCS; 2017-11-25 11:37)
PROC: 5A1D70Z Performance of Urinary Filtration, Intermittent, Less than 6 Hours Per Day (ICD-10-PCS; 2017-11-25 11:37)
PROC: 5A1D70Z Performance of Urinary Filtration, Intermittent, Less than 6 Hours Per Day (ICD-10-PCS; 2017-11-25 11:37)
PROC: 5A1D70Z Performance of Urinary Filtration, Intermittent, Less than 6 Hours Per Day (ICD-10-PCS; 2017-11-25 11:37)
PROC: 5A1D70Z Performance of Urinary Filtration, Intermittent, Less than 6 Hours Per Day (ICD-10-PCS; 2017-11-25 11:37)
PROC: 5A1D70Z Performance of Urinary Filtration, Intermittent, Less than 6 Hours Per Day (ICD-10-PCS; 2017-11-25 11:37)
DX: T17.890A Other foreign object in other parts of respiratory tract causing asphyxiation, initial encounter (principal); J96.01 Acute respiratory failure with hypoxia; J15.6 Pneumonia due to other Gram-negative bacteria; I13.2 Hypertensive heart and chronic kidney disease with heart failure and with stage 5 chronic kidney disease, or end stage renal disease; J11.08 Influenza due to unidentified influenza virus with specified pneumonia; E11.22 Type 2 diabetes mellitus with diabetic chronic kidney disease; I50.9 Heart failure, unspecified; N18.6 End stage renal disease; J12.9 Viral pneumonia, unspecified; D64.9 Anemia, unspecified; E78.5 Hyperlipidemia, unspecified; G89.4 Chronic pain syndrome; E21.3 Hyperparathyroidism, unspecified; F32.9 Major depressive disorder, single episode, unspecified; G62.9 Polyneuropathy, unspecified; J30.9 Allergic rhinitis, unspecified; M21.379 Foot drop, unspecified foot; M19.90 Unspecified osteoarthritis, unspecified site; K80.20 Calculus of gallbladder without cholecystitis without obstruction; K21.9 Gastro-esophageal reflux disease without esophagitis; K44.9 Diaphragmatic hernia without obstruction or gangrene; M81.0 Age-related osteoporosis without current pathological fracture; I25.10 Atherosclerotic heart disease of native coronary artery without angina pectoris; Z99.2 Dependence on renal dialysis; Z86.73 Personal history of transient ischemic attack (TIA), and cerebral infarction without residual deficits; Z90.710 Acquired absence of both cervix and uterus; Z86.19 Personal history of other infectious and parasitic diseases; Z82.3 Family history of stroke; Z82.49 Family history of ischemic heart disease and other diseases of the circulatory system; Z83.3 Family history of diabetes mellitus
CPT/HCPCS: 31622; 36415; 36600; 71045; 71046; 71250; 80048; 80053; 80069; 82274; 82805; 82962; 83735; 85007; 85018; 85025; 85027; 87040; 87070; 87205; 87804; 87804-59; 88112; 93005; 94640; 94760; 96365; 97110-GP; 97162-GP; 97165-GO; 97530-GO; 97530-GP; 97535-GO; 99285; 99285-25; J0690; J0696; J0881; J1815; J2704; J7030; J7120; J7620; J7626; P9046; Q0162

== ENCOUNTER 2018-04-10 10:12 | Emergency (ER) | payer OTHER ==
[2018-04-10 10:33] LABS: ADD MAN DIFF? NO
[2018-04-10 10:36] LABS: BASO # 0.1 x10^3/uL (0.0-0.2); BASO % 1 % (0-3); EOS # 0.2 x10^3/uL (0.0-0.7); EOS % 3 % (0-3); HEMATOCRIT 35.6 % (36.0-47.0); HEMOGLOBIN 12.2 g/dL (12.0-15.5); LYMPH # 1.3 x10^3/uL (1.0-4.8); LYMPH % 18 % (24-48); MEAN CORPUSCULAR HEMOGLOBIN 32 pg (25-35); MEAN CORPUSCULAR HGB CONC 34 g/dL (31-37); MEAN CORPUSCULAR VOLUME 94 fL (79-100); MONO # 0.6 x10^3/uL (0.0-1.1); MONO % 8 % (0-9); NEUT # 5.3 x10^3uL (1.8-7.7); NEUT % 70 % (31-73); PLATELET COUNT 163 x10^3/uL (140-400); RED BLOOD COUNT 3.81 x10^6/uL (3.50-5.40); RED CELL DISTRIBUTION WIDTH 14.8 % (11.5-14.5); WHITE BLOOD COUNT 7.5 x10^3/uL (4.0-11.0)
[2018-04-10 10:44] LABS: ANION GAP 7 (6-14); BLOOD UREA NITROGEN 24 mg/dL (7-20); BUN/CREATININE RATIO 7 (6-20); CALCIUM 8.6 mg/dL (8.5-10.1); CARBON DIOXIDE 32 mmol/L (21-32); CHLORIDE 99 mmol/L (98-107); CREATININE 3.4 mg/dL (0.6-1.0); GFR 13.4; GLUCOSE 131 mg/dL (70-99); POTASSIUM 3.7 mmol/L (3.5-5.1); SODIUM 138 mmol/L (136-145)
[2018-04-10 10:50] LABS: ALBUMIN 3.1 g/dL (3.4-5.0); ALBUMIN/GLOBULIN RATIO 0.7 (1.0-1.7); ALK PHOS 579 U/L (46-116); ALT (SGPT) 25 U/L (14-59); AST (SGOT) 30 U/L (15-37); MAGNESIUM 1.6 mg/dL (1.8-2.4); TOTAL BILIRUBIN 0.6 mg/dL (0.2-1.0); TOTAL PROTEIN 7.7 g/dL (6.4-8.2)
[2018-04-10 10:52] LABS: TROPONINI < 0.017 ng/mL (0.000-0.055)
[2018-04-10 10:59] LABS: CKMB MASS 1.4 ng/mL (0.0-3.6); CREATINE KINASE 71 U/L (26-192)
[2018-04-10 10:59] LABS: NT-PRO BNP 13319 pg/mL (0-124)
[2018-04-10 11:00] LABS: THYROID STIM HORMONE (TSH) 0.872 uIU/mL (0.358-3.74)
== END 2018-04-10 16:03 | disposition home or self-care (01) ==
LOC: ER 10:12
DX: J20.9 Acute bronchitis, unspecified (principal); M54.5 Low back pain; M25.511 Pain in right shoulder; I12.9 Hypertensive chronic kidney disease with stage 1 through stage 4 chronic kidney disease, or unspecified chronic kidney disease; E11.22 Type 2 diabetes mellitus with diabetic chronic kidney disease; N18.6 End stage renal disease; Z99.2 Dependence on renal dialysis; Z98.51 Tubal ligation status; Z90.710 Acquired absence of both cervix and uterus
CPT/HCPCS: 36415; 71045; 76700; 80053; 82553; 83735; 83880; 84443; 84484; 85025; 93005; 99285-25

== ENCOUNTER 2018-11-05 10:57 | Inpatient (IN) | payer OTHER, MEDICAID ==
[~2018-11-05] VITALS: Ht 157.5 cm; Wt 55.4 kg
[~2018-11-05 10:57] MED LIST changes: -ALEN70TA5 PO; +ALEN70TA6 PO; -ASPI81TA44 PO; +ASPI81TA59 PO; +HYDR-2761 PO; -HYDR-2762 PO; +HYDR-2765 PO; +HYDR-3164 PO; -HYDR-971 PO; +INSU100I11 SQ; +INSU100I27 SQ; +IPRA4AER IH; -LABE200T2 PO; +LABE200T4 PO; +LACT1CAP19 PO; +LOSA-73 PO; -LOSA50TA2 PO; +OMEP40CA5 PO; -OXYC-327 PO; +OXYC1TAB19 PO; +PRED-220 PO; +PROAIR RESPICL90 MCG IH; +PROM118S5 PO
[2018-11-05] MEDS ORDERED: IPRATRPIUM/ALBUTEROL 0.5/2.5MG 3 ML NEBU. NEB ONE (11:15)
--- NOTE | 2018-11-05 11:18 | PHYS DOC ---
Past Medical History Past Medical History: Bronchitis, Diabetes-Type II, Hypertension, Pneumonia, Renal Failure, Other Additional Past Medical Histor: c diff,drop foot syndrome Past Surgical History: , Hysterectomy, Tonsillectomy, Tubal ligation, Other Additional Past Surgical Histo: bilat rotator cuff;dialysis shunt left forearm, L ANKLE ORIF Alcohol Use: None Drug Use: None Adult General Chief Complaint Chief Complaint: COUGH HPI HPI Patient is a 68 year old female who presents with dyspnea. Patient presents to the ER with generalized weakness and acute dyspnea. She is found to have an oxygen saturation of 87-88% on room air. EMS had placed the patient on 2 L of oxygen which did improve her symptoms. Patient states she has been ill since leaving the hospital. She was recently admitted for similar symptoms when she had dyspnea and hypoxia. She was treated inpatient with vancomycin and was discharged home on Augmentin. She took her last dose of Augmentin 3 days earlier. Patient states she has worsened since completing antibiotic. Today, she became acutely short of breath and came to the hospital. She does not use oxygen normally during the daytime at home. She is not currently taking antibiotics. The patient does have end-stage renal disease. She is going to dialysis on Tuesday. She has not missed any dialysis. She does not complain of weight gain or worsening edema. Review of Systems Review of Systems Constitutional: Denies fever or chills Eyes: Denies change in visual acuity HENT: + some nasal congestion Respiratory: cough and dyspnea documented above Cardiovascular: No additional info GI: Denies abdominal pain : Denies dysuria or hematuria Musculoskeletal: Denies back pain Integument: Denies rash Neurologic: Denies headache Endocrine: Denies polyuria All other systems were reviewed and found to be within normal limits, except as documented in this note. Current Medications Current Medications Current Medications Medications (Trade) Dose Ordered Sig/Bill Start Time Stop Time Status Last Admin Dose Admin Albuterol/ Ipratropium (Duoneb) 3 ml 1X ONCE 11/05/18 11:15 11/05/18 11:16 DC 11/05/18 11:39 3 ML Allergies Allergies Allergies Coded Allergies Type Severity Reaction Last Updated Verified No Known Drug Allergies 12/13/17 No Physical Exam Physical Exam Constitutional: Well developed, well nourished, no acute distress, non-toxic appearance. [] HENT: Normocephalic, atraumatic, bilateral external ears normal, oropharynx moist, no oral exudates, nose normal. [] Eyes: PERRLA, EOMI, conjunctiva normal, no discharge. [] Neck: Normal range of motion, no tenderness, supple, no stridor. [] Cardiovascular:Heart rate regular rhythm, no murmur [] Lungs & Thorax: Bilateral breath sounds clear to auscultation [] Abdomen: Bowel sounds normal, soft, no tenderness, no masses, no pulsatile masses. [] Skin: Warm, dry, no erythema, no rash. [] Back: No tenderness, no CVA tenderness. [] Extremities: No tenderness, no cyanosis, no clubbing, ROM intact, no edema. [] Neurologic: Alert and oriented X 3, normal motor function, normal sensory function, no focal deficits noted. [] Psychologic: Affect normal, judgement normal, mood normal. [] Current Patient Data Vital Signs Vital Signs Date Time Temp Pulse Resp B/P (MAP) Pulse Ox O2 Delivery O2 Flow Rate FiO2 11/05/18 12:30 94 185/84 (117) 100 Nasal Cannula 2.0 11/05/18 11:02 99.4 20 99.4 Lab Values Laboratory Tests Test 11/05/18 11:15 11/05/18 11:35 11/05/18 12:05 White Blood Count 11.1 x10^3/uL (4.0-11.0) H Red Blood Count 3.00 x10^6/uL (3.50-5.40) L Hemoglobin 10.3 g/dL (12.0-15.5) L Hematocrit 29.5 % (36.0-47.0) L Mean Corpuscular Volume 98 fL (79-100) Mean Corpuscular Hemoglobin 34 pg (25-35) Mean Corpuscular Hemoglobin Concent 35 g/dL (31-37) Red Cell Distribution Width 15.3 % (11.5-14.5) H Platelet Count 102 x10^3/uL (140-400) L Neutrophils (%) (Auto) 90 % (31-73) H Lymphocytes (%) (Auto) 5 % (24-48) L Monocytes (%) (Auto) 3 % (0-9) Eosinophils (%) (Auto) 1 % (0-3) Basophils (%) (Auto) 1 % (0-3) Neutrophils # (Auto) 10.0 x10^3uL (1.8-7.7) H Lymphocytes # (Auto) 0.5 x10^3/uL (1.0-4.8) L Monocytes # (Auto) 0.4 x10^3/uL (0.0-1.1) Eosinophils # (Auto) 0.1 x10^3/uL (0.0-0.7) Basophils # (Auto) 0.1 x10^3/uL (0.0-0.2) Segmented Neutrophils % 90 % (35-66) H Band Neutrophils % 2 % (0-9) Lymphocytes % 4 % (24-48) L Monocytes % 2 % (0-10) Basophils % 1 % (0-3) Myelocytes % 1 % (0-0) H Platelet Estimate Decreased (ADEQUATE) Anisocytosis Slight Sodium Level 139 mmol/L (136-145) Potassium Level 4.0 mmol/L (3.5-5.1) Chloride Level 100 mmol/L (98-107) Carbon Dioxide Level 28 mmol/L (21-32) Anion Gap 11 (6-14) Blood Urea Nitrogen 54 mg/dL (7-20) H Creatinine 6.2 mg/dL (0.6-1.0) H Estimated GFR (Cockcroft-Gault) 6.7 Glucose Level 234 mg/dL (70-99) H Lactic Acid Level 0.6 mmol/L (0.4-2.0) Calcium Level 8.2 mg/dL (8.5-10.1) L Troponin I Quantitative 0.045 ng/mL (0.000-0.055) Influenza Type A Antigen Negative (NEGATIVE) Influenza Type B Antigen Negative (NEGATIVE) Prothrombin Time 14.3 SEC (11.7-14.0) H Prothrombin Time INR 1.1 (0.8-1.1) PTT 28 SEC (24-38) Laboratory Tests 11/05/18 11:15 Laboratory Tests 11/05/18 11:15 EKG EKG poor quality but no STEMI Interpretation Time: 13:15 Radiology/Procedures Radiology/Procedures Single AP upright portable view chest findings: Cardiomediastinal silhouette is within upper limits of normal. Pulmonary vascularity appears mildly prominent, however improved since prior. There are prominent interstitial markings in both lungs some of which may be chronic, however linear bibasilar opacities are seen probably atelectasis or developing infiltrates. There are degenerative changes about shoulders bilaterally. Impression: Linear bibasilar opacities likely atelectasis. Coarse interstitial markings seen in both lungs may reflect mild interstitial edema, however chronic interstitial changes are suspected. Course & Med Decision Making Course & Med Decision Making Pertinent Labs and Imaging studies reviewed. (See chart for details) 11:10: Patient is seen and examined. She did have some acute dyspnea on arrival was some course breath sounds and wheezing. She received 1 albuterol treatment and route to the hospital. She was given another on arrival which did improve her symptoms. Following this, her lungs were clear. There were no crackles. She had no clinical signs of fluid overload. The patient does not have a fever. Her vital signs are otherwise normal. She did however have documented hypoxia both prehospital and on arrival to the emergency department. During the ED course, she was maintained on 2 L of oxygen per nasal cannula and did have normal saturations with this. Her lab panel did not reveal acute findings. Her troponin was not elevated. Her EKG was of poor quality but no obvious STEMI was present. The patient did not have chest pain. After all results returned, the patient was placed on room air is again. She did desaturate into the 86-87% range. She was not ambulated during this and was at rest. Due to her oxygen need, the patient is admitted. I spoke to Dr. Starkey who will primarily admit this patient. The patient is agreeable. No antibiotics are started this time. Chest x-ray does not reveal any new consolidations or infiltrates. Dragon Disclaimer Dragon Disclaimer This electronic medical record was generated, in whole or in part, using a voice recognition dictation system. Departure Departure Disposition: 09 ADMITTED INPATIENT Condition: GOOD Referrals: ARELI MATIAS MD (PCP) CLEVE SHAH DO Nov 05, 2018 11:18
--- NOTE | 2018-11-05 11:25 | EKG ---
[facility] [address] [place] [address] Test Date: 2018-11-05 Test Time: 11:05:16 Pat Name: ROBBIN LYNN Department: Room: Gender: F Director Biomedical Engineering: : 1950 Requested By: CLEVE SHAH Order Number: [id number] Reading MD: Radu Pyle Measurements Intervals [place] Rate: 102 P: -53 PA: 142 QRS: 26 QRSD: 86 T: 47 QT: 354 QTc: 465 Interpretive Statements SINUS TACHYCARDIA Electronically Signed On 11-15-2018 17:01:25 BRAILLE TYPIST by Radu Pyle
[2018-11-05 11:27] LABS: BASO # 0.1 x10^3/uL (0.0-0.2); BASO % 1 % (0-3); EOS # 0.1 x10^3/uL (0.0-0.7); EOS % 1 % (0-3); HEMATOCRIT 29.5 % (36.0-47.0); HEMOGLOBIN 10.3 g/dL (12.0-15.5); LYMPH # 0.5 x10^3/uL (1.0-4.8); LYMPH % 5 % (24-48); MEAN CORPUSCULAR HEMOGLOBIN 34 pg (25-35); MEAN CORPUSCULAR HGB CONC 35 g/dL (31-37); MEAN CORPUSCULAR VOLUME 98 fL (79-100); MONO # 0.4 x10^3/uL (0.0-1.1); MONO % 3 % (0-9); NEUT % 90 % (31-73); PLATELET COUNT 102 x10^3/uL (140-400); RED CELL DISTRIBUTION WIDTH 15.3 % (11.5-14.5); WHITE BLOOD COUNT 11.1 x10^3/uL (4.0-11.0)
[2018-11-05 11:35] LABS: CALCIUM 8.2 mg/dL (8.5-10.1); CREATININE 6.2 mg/dL (0.6-1.0); GFR 6.7
--- NOTE | 2018-11-05 11:44 | RAD ---
Exam performed: One view chest. Indication: SOA, COUGH X2 WEEKS. RECENT FEVER Date of Service: 11/05/2018 11:18 AM Comparison: Two-view chest from 10/17/[address] chest without contrast from 10/19/2018. Single AP upright portable view chest findings: Cardiomediastinal silhouette is within upper limits of normal. Pulmonary vascularity appears mildly prominent, however improved since prior. There are prominent interstitial markings in both lungs some of which may be chronic, however linear bibasilar opacities are seen probably atelectasis or developing infiltrates. There are degenerative changes about shoulders bilaterally. Impression: Linear bibasilar opacities likely atelectasis. Coarse interstitial markings seen in both lungs may reflect mild interstitial edema, however chronic interstitial changes are suspected. Electronically signed by: Melanie White MD (11/05/2018 11:39 AM) [facility]
[2018-11-05 12:01] LABS: % BANDS 2 % (0-9); % BASOS 1 % (0-3); % LYMPHS 4 % (24-48); % MONOS 2 % (0-10); % MYELOS 1 % (0-0); % SEGS 90 % (35-66)
[2018-11-05 12:01] LABS: INFLUENZA A PATIENT NEGATIVE (NEGATIVE); INFLUENZA B PATIENT NEGATIVE (NEGATIVE)
[2018-11-05 12:02] LABS: ANISOCYTOSIS SLIGHT; PLT ESTIMATE DECREASED (ADEQUATE)
[2018-11-05 12:27] LABS: PROTHROMBIN TIME PATIENT 14.3 SEC (11.7-14.0)
[2018-11-05] MEDS ORDERED: ACETAMINOPHEN 325 MG TABLET. PO PRN ×2 (13:15→17:15)
[2018-11-05] MEDS ORDERED: ONDANSETRON PF 4 MG/2 ML VIAL. IV PRN (13:15)
[2018-11-05 15:28] VITALS: BP 166/67
[2018-11-05] MEDS ORDERED: ALBUTEROL SULFATE 2.5 MG/3 ML NEBU. NEB PRN (17:30)
[2018-11-05] MEDS ORDERED: PROMETH/CODEINE 6.25/10MG 5 ML SYRUP. PO PRN (17:30)
[2018-11-05 19:25] VITALS: BP 176/71
[2018-11-05] MEDS: GABAPENTIN 100 MG CAPSULE. PO SCH (20:14)
[2018-11-05] MEDS: SEVELAMER CARBONATE 800 MG TABLET. PO SCH (20:14)
[2018-11-05] MEDS: cloNIDine HCL 0.1 MG TABLET PO SCH (20:17)
[2018-11-05] MEDS: INSULIN GLARGINE 300 UNITS/3 ML INSULN.PEN. SQ SCH (20:31)
[2018-11-05] MEDS: IPRATRPIUM/ALBUTEROL 0.5/2.5MG 3 ML NEBU. NEB SCH (20:38)
[2018-11-05] MEDS ORDERED: INSULIN GLARGINE 300 UNITS/3 ML INSULN.PEN. SQ SCH (21:00)
[2018-11-06 03:30] VITALS: BP 154/65
[2018-11-06 04:25] LABS: BASO % 0 % (0-3); EOS # 0.3 x10^3/uL (0.0-0.7); EOS % 3 % (0-3); HEMATOCRIT 26.5 % (36.0-47.0); HEMOGLOBIN 9.5 g/dL (12.0-15.5); LYMPH # 1.6 x10^3/uL (1.0-4.8); LYMPH % 16 % (24-48); MEAN CORPUSCULAR HEMOGLOBIN 35 pg (25-35); MEAN CORPUSCULAR HGB CONC 36 g/dL (31-37); MEAN CORPUSCULAR VOLUME 98 fL (79-100); MONO # 0.6 x10^3/uL (0.0-1.1); MONO % 6 % (0-9); NEUT # 7.2 x10^3uL (1.8-7.7); NEUT % 75 % (31-73); PLATELET COUNT 93 x10^3/uL (140-400); RED CELL DISTRIBUTION WIDTH 15.3 % (11.5-14.5); WHITE BLOOD COUNT 9.7 x10^3/uL (4.0-11.0)
[2018-11-06 04:39] LABS: CALCIUM 8.1 mg/dL (8.5-10.1); CREATININE 7.6 mg/dL (0.6-1.0); GFR 5.3; POTASSIUM 3.6 mmol/L (3.5-5.1)
[2018-11-06] MEDS: SEVELAMER CARBONATE 800 MG TABLET. PO SCH ×3 (06:32→17:20)
[2018-11-06 07:36] VITALS: BP 159/54
[2018-11-06] MEDS ORDERED: INSULIN LISPRO 300 UNITS/3 ML INSULN.PEN. SQ SCH ×2 (08:00)
[2018-11-06] MEDS ORDERED: IPRATRPIUM/ALBUTEROL 0.5/2.5MG 3 ML NEBU. NEB SCH (08:30)
--- NOTE | 2018-11-06 08:31 | PDOC ---
PROGRESS NOTES Subjective Subjective Patient reports cough productive of discolored sputum. No SOA at rest. Objective Objective Vital Signs Date Time Temp Pulse Resp B/P (MAP) Pulse Ox O2 Delivery O2 Flow Rate FiO2 11/06/18 07:36 97.9 66 18 159/54 (89) 98 Nasal Cannula 2.0 97.9 Intake and Output 11/06/18 07:01 Intake Total 600 ml Balance 600 ml Intake Oral 600 ml Physical Exam Abdomen: Normal bowel sounds, Soft, No tenderness Heart: Regular rate, No murmurs Extremities: No edema General: Alert, Oriented X3, No acute distress Lungs: Other (BS mildly decreased throughout, mild expiratory wheezes present, few coarse BS bilaterally) Assessment Assessment Problems Medical Problems: (1) Hypoxia Status: Acute Plan Plan of Care 1. Acute hypoxic respiratory failure with hx atypical pneumonia - symptoms appear similar to those at admission earlier this month. Stable overnight. Consult with Pulmonary pending. Will start Solumedrol and scheduled nebs. Possible interstitial infiltrates on CXR. 2. ESRD - stable, patient is compliant with dialysis. Continue tx per Renal. 3. HTN - controlled, continue home medications. 4. DM2 - controlled, continue insulins as needed. 5. chronic back pain - stable, continue prn [place]. Patient encouraged to be out of bed today. Comment Review of Relevant I have reviewed the following items cosmo (where applicable) has been applied. Labs Laboratory Tests Test 11/05/18 11:15 11/05/18 11:35 11/05/18 12:05 11/05/18 17:35 White Blood Count 11.1 x10^3/uL (4.0-11.0) Red Blood Count 3.00 x10^6/uL (3.50-5.40) Hemoglobin 10.3 g/dL (12.0-15.5) Hematocrit 29.5 % (36.0-47.0) Mean Corpuscular Volume 98 fL (79-100) Mean Corpuscular Hemoglobin 34 pg (25-35) Mean Corpuscular Hemoglobin Concent 35 g/dL (31-37) Red Cell Distribution Width 15.3 % (11.5-14.5) Platelet Count 102 x10^3/uL (140-400) Neutrophils (%) (Auto) 90 % (31-73) Lymphocytes (%) (Auto) 5 % (24-48) Monocytes (%) (Auto) 3 % (0-9) Eosinophils (%) (Auto) 1 % (0-3) Basophils (%) (Auto) 1 % (0-3) Neutrophils # (Auto) 10.0 x10^3uL (1.8-7.7) Lymphocytes # (Auto) 0.5 x10^3/uL (1.0-4.8) Monocytes # (Auto) 0.4 x10^3/uL (0.0-1.1) Eosinophils # (Auto) 0.1 x10^3/uL (0.0-0.7) Basophils # (Auto) 0.1 x10^3/uL (0.0-0.2) Segmented Neutrophils % 90 % (35-66) Band Neutrophils % 2 % (0-9) Lymphocytes % 4 % (24-48) Monocytes % 2 % (0-10) Basophils % 1 % (0-3) Myelocytes % 1 % (0-0) Platelet Estimate Decreased (ADEQUATE) Anisocytosis Slight Sodium Level 139 mmol/L (136-145) Potassium Level 4.0 mmol/L (3.5-5.1) Chloride Level 100 mmol/L (98-107) Carbon Dioxide Level 28 mmol/L (21-32) Anion Gap 11 (6-14) Blood Urea Nitrogen 54 mg/dL (7-20) Creatinine 6.2 mg/dL (0.6-1.0) Estimated GFR (Cockcroft-Gault) 6.7 Glucose Level 234 mg/dL (70-99) Lactic Acid Level 0.6 mmol/L (0.4-2.0) Calcium Level 8.2 mg/dL (8.5-10.1) Troponin I Quantitative 0.045 ng/mL (0.000-0.055) Influenza Type A Antigen Negative (NEGATIVE) Influenza Type B Antigen Negative (NEGATIVE) Prothrombin Time 14.3 SEC (11.7-14.0) Prothromb Time International Ratio 1.1 (0.8-1.1) Activated Partial Thromboplast Time 28 SEC (24-38) Glucose (Fingerstick) 161 mg/dL (70-99) Test 11/05/18 20:19 11/06/18 03:25 11/06/18 07:24 Glucose (Fingerstick) 279 mg/dL (70-99) 70 mg/dL (70-99) White Blood Count 9.7 x10^3/uL (4.0-11.0) Red Blood Count 2.70 x10^6/uL (3.50-5.40) Hemoglobin 9.5 g/dL (12.0-15.5) Hematocrit 26.5 % (36.0-47.0) Mean Corpuscular Volume 98 fL (79-100) Mean Corpuscular Hemoglobin 35 pg (25-35) Mean Corpuscular Hemoglobin Concent 36 g/dL (31-37) Red Cell Distribution Width 15.3 % (11.5-14.5) Platelet Count 93 x10^3/uL (140-400) Neutrophils (%) (Auto) 75 % (31-73) Lymphocytes (%) (Auto) 16 % (24-48) Monocytes (%) (Auto) 6 % (0-9) Eosinophils (%) (Auto) 3 % (0-3) Basophils (%) (Auto) 0 % (0-3) Neutrophils # (Auto) 7.2 x10^3uL (1.8-7.7) Lymphocytes # (Auto) 1.6 x10^3/uL (1.0-4.8) Monocytes # (Auto) 0.6 x10^3/uL (0.0-1.1) Eosinophils # (Auto) 0.3 x10^3/uL (0.0-0.7) Basophils # (Auto) 0.0 x10^3/uL (0.0-0.2) Sodium Level 140 mmol/L (136-145) Potassium Level 3.6 mmol/L (3.5-5.1) Chloride Level 101 mmol/L (98-107) Carbon Dioxide Level 29 mmol/L (21-32) Anion Gap 10 (6-14) Blood Urea Nitrogen 67 mg/dL (7-20) Creatinine 7.6 mg/dL (0.6-1.0) Estimated GFR (Cockcroft-Gault) 5.3 Glucose Level 94 mg/dL (70-99) Calcium Level 8.1 mg/dL (8.5-10.1) Laboratory Tests Test 11/05/18 11:15 11/05/18 11:35 11/05/18 12:05 11/05/18 17:35 White Blood Count 11.1 x10^3/uL (4.0-11.0) Red Blood Count 3.00 x10^6/uL (3.50-5.40) Hemoglobin 10.3 g/dL (12.0-15.5) Hematocrit 29.5 % (36.0-47.0) Mean Corpuscular Volume 98 fL (79-100) Mean Corpuscular Hemoglobin 34 pg (25-35) Mean Corpuscular Hemoglobin Concent 35 g/dL (31-37) Red Cell Distribution Width 15.3 % (11.5-14.5) Platelet Count 102 x10^3/uL (140-400) Neutrophils (%) (Auto) 90 % (31-73) Lymphocytes (%) (Auto) 5 % (24-48) Monocytes (%) (Auto) 3 % (0-9) Eosinophils (%) (Auto) 1 % (0-3) Basophils (%) (Auto) 1 % (0-3) Neutrophils # (Auto) 10.0 x10^3uL (1.8-7.7) Lymphocytes # (Auto) 0.5 x10^3/uL (1.0-4.8) Monocytes # (Auto) 0.4 x10^3/uL (0.0-1.1) Eosinophils # (Auto) 0.1 x10^3/uL (0.0-0.7) Basophils # (Auto) 0.1 x10^3/uL (0.0-0.2) Segmented Neutrophils % 90 % (35-66) Band Neutrophils % 2 % (0-9) Lymphocytes % 4 % (24-48) Monocytes % 2 % (0-10) Basophils % 1 % (0-3) Myelocytes % 1 % (0-0) Platelet Estimate Decreased (ADEQUATE) Anisocytosis Slight Sodium Level 139 mmol/L (136-145) Potassium Level 4.0 mmol/L (3.5-5.1) Chloride Level 100 mmol/L (98-107) Carbon Dioxide Level 28 mmol/L (21-32) Anion Gap 11 (6-14) Blood Urea Nitrogen 54 mg/dL (7-20) Creatinine 6.2 mg/dL (0.6-1.0) Estimated GFR (Cockcroft-Gault) 6.7 Glucose Level 234 mg/dL (70-99) Lactic Acid Level 0.6 mmol/L (0.4-2.0) Calcium Level 8.2 mg/dL (8.5-10.1) Troponin I Quantitative 0.045 ng/mL (0.000-0.055) Influenza Type A Antigen Negative (NEGATIVE) Influenza Type B Antigen Negative (NEGATIVE) Prothrombin Time 14.3 SEC (11.7-14.0) Prothromb Time International Ratio 1.1 (0.8-1.1) Activated Partial Thromboplast Time 28 SEC (24-38) Glucose (Fingerstick) 161 mg/dL (70-99) Test 11/05/18 20:19 11/06/18 03:25 11/06/18 07:24 Glucose (Fingerstick) 279 mg/dL (70-99) 70 mg/dL (70-99) White Blood Count 9.7 x10^3/uL (4.0-11.0) Red Blood Count 2.70 x10^6/uL (3.50-5.40) Hemoglobin 9.5 g/dL (12.0-15.5) Hematocrit 26.5 % (36.0-47.0) Mean Corpuscular Volume 98 fL (79-100) Mean Corpuscular Hemoglobin 35 pg (25-35) Mean Corpuscular Hemoglobin Concent 36 g/dL (31-37) Red Cell Distribution Width 15.3 % (11.5-14.5) Platelet Count 93 x10^3/uL (140-400) Neutrophils (%) (Auto) 75 % (31-73) Lymphocytes (%) (Auto) 16 % (24-48) Monocytes (%) (Auto) 6 % (0-9) Eosinophils (%) (Auto) 3 % (0-3) Basophils (%) (Auto) 0 % (0-3) Neutrophils # (Auto) 7.2 x10^3uL (1.8-7.7) Lymphocytes # (Auto) 1.6 x10^3/uL (1.0-4.8) Monocytes # (Auto) 0.6 x10^3/uL (0.0-1.1) Eosinophils # (Auto) 0.3 x10^3/uL (0.0-0.7) Basophils # (Auto) 0.0 x10^3/uL (0.0-0.2) Sodium Level 140 mmol/L (136-145) Potassium Level 3.6 mmol/L (3.5-5.1) Chloride Level 101 mmol/L (98-107) Carbon Dioxide Level 29 mmol/L (21-32) Anion Gap 10 (6-14) Blood Urea Nitrogen 67 mg/dL (7-20) Creatinine 7.6 mg/dL (0.6-1.0) Estimated GFR (Cockcroft-Gault) 5.3 Glucose Level 94 mg/dL (70-99) Calcium Level 8.1 mg/dL (8.5-10.1) Medications Current Medications Albuterol/ Ipratropium (Duoneb) 3 ml 1X ONCE NEB Last administered on at 11:39; Start 11/05/18 at 11:15; Stop 11/05/18 at 11:16; Status DC Ondansetron HCl (Zofran) 4 mg PRN Q8HRS PRN IV NAUSEA/VOMITING; Start 11/05/18 at 13:15; Stop 11/06/18 at 13:14 Acetaminophen (Tylenol) 650 mg PRN Q4HRS PRN PO FEVER; Start 11/05/18 at 13:15 ; Stop 11/05/18 at 17:16; Status DC Acetaminophen (Tylenol) 650 mg PRN Q6HRS PRN PO MILD PAIN; Start 11/05/18 at 17 :15 Amlodipine Besylate (Norvasc) 10 mg DAILY PO ; Start 11/06/18 at 09:00 Aspirin (Children'S Aspirin) 81 mg DAILYWBKFT PO ; Start 11/06/18 at 08:00 Cetirizine HCl (ZyrTEC) 10 mg DAILY PO ; Start 11/06/18 at 09:00 Clonidine HCl (Catapres) 0.1 mg BID PO Last administered on 11/05/18at 20:17; Start 11/05/18 at 21:00 Gabapentin (Neurontin) 200 mg BID PO Last administered on 11/05/18at 20:14; Start 11/05/18 at 21:00 Acetaminophen/ Hydrocodone Bitart (Lortab 5/325) 1 tab PRN Q6HRS PRN PO MODERATE TO SEVERE PAIN; Start 11/05/18 at 17:15 Insulin Glargine (Lantus) 25 units QHS SQ ; Start 11/05/18 at 21:00; Stop at 21:00; Status DC Insulin Human Lispro (HumaLOG) TIDWMEALS SQ ; Start 11/06/18 at 08:00; Status UNV Sevelamer Carbonate (Renvela) 1,600 mg [id number] PO Last administered on at 06:32; Start 11/05/18 at 18:00 Albuterol Sulfate (Ventolin Neb Soln) 2.5 mg PRN Q6HRS PRN NEB SHORTNESS OF BREATH; Start 11/05/18 at 17:30 Non-Formulary Medication (Alendronate Sodium ) 70 mg Q2WKS PO ; Start 11/19/18 at 09:00; Status UNV Calcium/Vitamin D (Oscal D 500mg/ 200uts) 1 tab DAILY PO ; Start 11/06/18 at 09: 00 Fluticasone Propionate (Flonase) 2 spray DAILY NS ; Start 11/06/18 at 09:00 Hydralazine HCl (Apresoline) 50 mg TID PO Last administered on 11/05/18at 20:18 ; Start 11/05/18 at 21:00 Albuterol/ Ipratropium (Duoneb) 3 ml RTQID NEB Last administered on 11/05/18at 20:38; Start 11/05/18 at 20:00 Labetalol HCl (Trandate) 200 mg DAILY PO ; Start 11/06/18 at 09:00 Pantoprazole Sodium (Protonix) 40 mg DAILYAC PO ; Start 11/06/18 at 07:30 Promethazine HCl/ Codeine (Phenergan With Codeine Oral Syrup) 5 ml PRN Q6HRS PRN PO COUGH; Start 11/05/18 at 17:30 Vitamin B Complex/ Vitamin C ([place]-Abby) 1 tab DAILY PO ; Start 11/06/18 at 09: 00 Insulin Human Lispro (HumaLOG) 0-5 UNITS TIDWMEALS SQ ; Start 11/06/18 at 08:00 Dextrose (Dextrose 50%-Water Syringe) 12.5 gm PRN Q15MIN PRN IV SEE COMMENTS; Start 11/05/18 at 19:30 Insulin Glargine (Lantus) 7 units QHS SQ Last administered on 11/05/18at 20:31; Start 11/05/18 at 21:00 Active Scripts Active Proair Respiclick (Albuterol Sulfate) 90 Mcg Aer.pow.ba 1 Puff IH PRN Q6HRS PRN Culturelle (Lactobacillus Rhamnosus Gg) 1 Each Cap.sprink 1 Cap PO BID 30 Days Combivent Respimat Inhal (Ipratropium/Albuterol Sulfate) 4 Gm Aer.w.adap 2 Inh IH QID 30 Days Labetalol Hcl 200 Mg Tablet 1 Tab PO DAILY 30 Days Children's Aspirin (Aspirin) 81 Mg Tab.chew 81 Mg PO DAILYWBKFT 30 Days Reported Omeprazole 40 Mg Capsule.dr 40 Mg PO DAILY Hydrocodone-Apap 5-325 (Hydrocodone Bit/Acetaminophen) 1 Each Tablet 1 Tab PO Q6HRS PRN Hydralazine Hcl 50 Mg Tablet 1 Tab PO TID Gabapentin (Gabapentin) 100 Mg Capsule 200 Mg PO BID Cetirizine Hcl 10 Mg Tablet 1 Tab PO DAILY Tylenol (Acetaminophen) 325 Mg Tablet 2 Tab PO PRN Q6HRS PRN Clonidine Hcl 0.1 Mg Tablet 0.1 Mg PO BID Alendronate Sodium 70 Mg Tablet 70 Mg PO Q2WKS Flonase Allergy Relief (Fluticasone Propionate) 9.9 Ml Alfred.susp 2 Sprays NS DAILY Calcium 600 + Vit D 400 Caplet (Calcium Carbonate/Vitamin D3) 1 Each Tablet 1 Each PO DAILY Renvela (Sevelamer Carbonate) 800 Mg Tablet 2 Tab PO [id number] Norvasc (Amlodipine Besylate) 10 Mg Tablet 10 Mg PO DAILY [place]y-Abby Rx Tablet (Vit B Cmplx 3/Fa/Vit C/Biotin) 1 Each Tablet 1 Each PO DAILY Vitals/I & O Vital Sign - Last 24 Hours 11/05/18 11/05/18 11/05/18 11/05/18 11:02 11:30 11:39 12:30 Temp 99.4 99.4 Pulse 103 100 94 Resp 20 B/P (MAP) 212/84 (126) 189/79 (115) 185/84 (117) Pulse Ox 96 98 98 100 O2 Delivery Nasal Cannula Nasal Cannula Nasal Cannula Nasal Cannula O2 Flow Rate 2.0 2.0 2.0 2.0 11/05/18 11/05/18 11/05/18 11/05/18 13:30 15:28 18:01 19:25 Temp 99.3 97.8 99.3 97.8 Pulse 84 100 86 Resp 20 18 20 B/P (MAP) 167/79 (108) 166/67 (100) 176/71 (106) Pulse Ox 100 100 97 O2 Delivery Nasal Cannula Nasal Cannula Nasal Cannula Nasal Cannula O2 Flow Rate 2.0 2.0 2.0 2.0 11/05/18 11/05/18 11/05/18 11/05/18 20:00 20:17 20:18 20:38 Pulse 86 86 B/P (MAP) 176/71 176/71 Pulse Ox 97 O2 Delivery Nasal Cannula Nasal Cannula O2 Flow Rate 2.0 2.0 11/06/18 11/06/18 03:30 07:36 Temp 98.1 97.9 98.1 97.9 Pulse 69 66 Resp 18 18 B/P (MAP) 154/65 (94) 159/54 (89) Pulse Ox 98 98 O2 Delivery Nasal Cannula Nasal Cannula O2 Flow Rate 2.0 2.0 Intake and Output 11/05/18 11/05/18 11/06/18 15:01 23:01 07:01 Intake Total 300 ml 300 ml Balance 300 ml 300 ml ARELI MATIAS MD Nov 06, 2018 08:31
[2018-11-06] MEDS: IPRATRPIUM/ALBUTEROL 0.5/2.5MG 3 ML NEBU. NEB SCH ×4 (08:32→20:08)
[2018-11-06] MEDS ORDERED: DEXTROSE 50% 25 GM / 50ML DISP.SYRIN. IV PRN (08:45)
[2018-11-06] MEDS: INSULIN LISPRO 300 UNITS/3 ML INSULN.PEN. SQ SCH ×3 (08:45→17:00)
[2018-11-06] MEDS: FLUTICASONE 50MCG/NASAL SPRAY 16GM BOTTLE. NS SCH (09:00)
--- NOTE | 2018-11-06 09:20 | HP ---
ADMIT DATE: 11/05/2018 CHIEF COMPLAINT: Shortness of breath. HISTORY OF PRESENT ILLNESS: The patient is a 68-year-old female who was recently hospitalized here at [facility] for treatment of acute respiratory failure with atypical pneumonia. She had been discharged home on Augmentin and a prednisone taper. The patient reports that she had completed these as prescribed and her breathing seemed fairly good to her. However, in the past day or two, she has had increasing shortness of breath. Her daughter noticed some wheezing and grew concerned, so she called EMS. In the Emergency Room, the patient was found to be hypoxic on room air. Treatment was started, and she was admitted for further care. PAST MEDICAL HISTORY: Recent atypical pneumonia. End-stage renal disease, on dialysis. Diabetes mellitus type 2, insulin-dependent. History of C. difficile colitis. Osteoporosis, osteoarthritis with chronic back pain. Mild coronary artery disease, allergic rhinitis, Hypertension. PAST SURGICAL HISTORY: , tonsillectomy, bilateral tubal ligation, bilateral rotator cuff repair, closed reduction and internal fixation of left ankle after a fracture 10/01, cholecystectomy, hysterectomy. ALLERGIES: The patient has no known drug allergies. HOME MEDICATIONS: Albuterol p.r.n., alendronate 70 mg every other week, amlodipine 10 mg daily, aspirin 81 mg daily, calcium with vitamin D daily, cetirizine 10 mg daily, clonidine 0.1 mg b.i.d., Flonase p.r.n., gabapentin 200 mg b.i.d., hydralazine 50 mg t.i.d., [place] 5/325 p.r.n. back pain, labetalol 200 mg daily, omeprazole 40 mg daily, Renvela 800 mg 2 tablets t.i.d. Renal vitamin 1 daily, NovoLog insulin sliding scale, Lantus insulin at bedtime p.r.n., the patient usually takes about 5 units. FAMILY HISTORY: Noncontributory. SOCIAL HISTORY: The patient is single and lives with her daughter. She does not smoke cigarettes or drink alcohol. REVIEW OF SYSTEMS: The patient reports that she had a fever when EMS evaluated her at home, but she had not noticed any other episodes of fever or chills. She has already received her flu shot last fall. She denies chest pain or palpitations. She denies abdominal pain, nausea or vomiting. She has not had any unusual diarrhea. She denies lower extremity edema. She goes to dialysis on Tuesday, Tuesday and Tuesday and denies missing any treatments. Her back pain has been controlled with her usual hydrocodone. PHYSICAL EXAMINATION: GENERAL: The patient is alert and oriented x 3, resting comfortably in bed in no acute distress. HEENT: PERRL, EOMI, sclerae clear. Oropharynx: Mucous membranes moist. NECK: Supple, without lymphadenopathy. CHEST: Breath sounds mildly decreased throughout. There are a few expiratory wheezes and coarse breath sounds bilaterally. CARDIOVASCULAR: Regular rhythm without murmur. ABDOMEN: Soft, nontender, normoactive bowel sounds are present. EXTREMITIES: Without edema. ASSESSMENT AND PLAN: 1. Acute hypoxic respiratory failure with a history of atypical pneumonia. The patient's symptoms appear similar to those at her admission earlier this month. She has been stable overnight on oxygen. A consult with Pulmonary Medicine is pending. We will start her on Solu-Medrol and scheduled nebulized treatments. The chest x-ray does show possible interstitial infiltrates. We will defer to Pulmonary Medicine as to antibiotic treatment. The patient is negative for influenza. 2. End-stage renal disease. This is stable and the patient is compliant with dialysis. Continue treatment per Renal. 3. Hypertension. This has been controlled. Continue home medication. 4. Diabetes mellitus type 2. This is fairly well controlled. Continue insulins and use sliding scale as needed. Expect some hyperglycemia due to the Solu-Medrol. 5. Chronic back pain. This is stable. Continue p.r.n. [place]. The patient is encouraged to be out of bed daily. She only ambulates for short distances at home. ARELI MATIAS MD DR: EVONNE/ronaldo JOB#: [id number] / [id number] NISHA
[2018-11-06] MEDS ORDERED: IV NORMAL SALINE 1000ML BAG 1,000 ML IV PRN ×2 (09:59)
[2018-11-06] MEDS ORDERED: DIALYSIS PATIENT. MC PRN ×2 (10:00)
--- NOTE | 2018-11-06 12:53 | PDOC2 ---
CONSULT Date of Consult Date of Consult DATE: 11/06/18 TIME: 12:47 Reason for Consult Reason for Consult: ESRD Referring Physician Referring Physician: TONIA Identification/Chief Complaint Chief Complaint SOB Source Source: Chart review, Patient History of Present Illness Reason for Visit: THIS IS A 68 YR OLD WITH ESRD. SHE HAS ESRD DUE TO HTN AND DM II. HER OP HD IS ON MWF. SHE IS ADMITTED WITH SOB AND RESP FAILURE. SHE HAS SOB EVER SINCE HER RECENT EPISODE OF PNEUMONIA. STATES THAT IT IMPROVED BRIEFLY BUT WORSE NOW. SHE HAS BEEN COMPLIANT WITH HER DIALYSIS. LABS ARE C/W ESRD Past Medical History Cardiovascular: CAD, CHF, HTN, Hyperlipidemia Pulmonary: No pertinent hx, Pneumonia CENTRAL NERVOUS SYSTEM: Periperal neuropathy, TIA GI: GERD Heme/Onc: Anemia NOS Hepatobiliary: Cholelithiasis Psych: Depression Musculoskeletal: Osteoarthritis, Other Rheumatologic: No pertinent hx Infectious disease: No pertinent hx Renal/: Chronic renal failure, UTI, Other Endocrine: Diabetes, Hyperparathyroidism Past Surgical History Past Surgical History: Arthroscopy, Cholecystectomy, , Tonsillectomy, Hysterectomy, Other Family History Family History: Cancer, Diabetes, Hypertension, Stroke Social History ALCOHOL: none Drugs: None Lives: with Family Domestic Violence: Neg Current Problem List Problem List Problems Medical Problems: (1) Hypoxia Status: Acute Current Medications Current Medications Current Medications Albuterol/ Ipratropium (Duoneb) 3 ml 1X ONCE NEB Last administered on at 11:39; Start 11/05/18 at 11:15; Stop 11/05/18 at 11:16; Status DC Ondansetron HCl (Zofran) 4 mg PRN Q8HRS PRN IV NAUSEA/VOMITING; Start 11/05/18 at 13:15; Stop 11/06/18 at 13:14 Acetaminophen (Tylenol) 650 mg PRN Q4HRS PRN PO FEVER; Start 11/05/18 at 13:15 ; Stop 11/05/18 at 17:16; Status DC Acetaminophen (Tylenol) 650 mg PRN Q6HRS PRN PO MILD PAIN; Start 11/05/18 at 17 :15 Amlodipine Besylate (Norvasc) 10 mg DAILY PO ; Start 11/06/18 at 09:00 Aspirin (Children'S Aspirin) 81 mg DAILYWBKFT PO ; Start 11/06/18 at 08:00 Cetirizine HCl (ZyrTEC) 10 mg DAILY PO ; Start 11/06/18 at 09:00 Clonidine HCl (Catapres) 0.1 mg BID PO Last administered on 11/05/18at 20:17; Start 11/05/18 at 21:00 Gabapentin (Neurontin) 200 mg BID PO Last administered on 11/05/18at 20:14; Start 11/05/18 at 21:00 Acetaminophen/ Hydrocodone Bitart (Lortab 5/325) 1 tab PRN Q6HRS PRN PO MODERATE TO SEVERE PAIN; Start 11/05/18 at 17:15 Insulin Glargine (Lantus) 25 units QHS SQ ; Start 11/05/18 at 21:00; Stop at 21:00; Status DC Insulin Human Lispro (HumaLOG) TIDWMEALS SQ ; Start 11/06/18 at 08:00; Status UNV Sevelamer Carbonate (Renvela) 1,600 mg [id number] PO Last administered on at 06:32; Start 11/05/18 at 18:00 Albuterol Sulfate (Ventolin Neb Soln) 2.5 mg PRN Q6HRS PRN NEB SHORTNESS OF BREATH; Start 11/05/18 at 17:30 Non-Formulary Medication (Alendronate Sodium ) 70 mg Q2WKS PO ; Start 11/19/18 at 09:00; Status UNV Calcium/Vitamin D (Oscal D 500mg/ 200uts) 1 tab DAILY PO ; Start 11/06/18 at 09: 00 Fluticasone Propionate (Flonase) 2 spray DAILY NS ; Start 11/06/18 at 09:00 Hydralazine HCl (Apresoline) 50 mg TID PO Last administered on 11/05/18at 20:18 ; Start 11/05/18 at 21:00 Albuterol/ Ipratropium (Duoneb) 3 ml RTQID NEB Last administered on 11/06/18at 08:32; Start 11/05/18 at 20:00 Labetalol HCl (Trandate) 200 mg DAILY PO ; Start 11/06/18 at 09:00 Pantoprazole Sodium (Protonix) 40 mg DAILYAC PO ; Start 11/06/18 at 07:30 Promethazine HCl/ Codeine (Phenergan With Codeine Oral Syrup) 5 ml PRN Q6HRS PRN PO COUGH; Start 11/05/18 at 17:30 Vitamin B Complex/ Vitamin C (Windy-Abby) 1 tab DAILY PO ; Start 11/06/18 at 09: 00 Insulin Human Lispro (HumaLOG) 0-5 UNITS TIDWMEALS SQ ; Start 11/06/18 at 08:00 ; Stop 11/06/18 at 08:36; Status DC Dextrose (Dextrose 50%-Water Syringe) 12.5 gm PRN Q15MIN PRN IV SEE COMMENTS; Start 11/05/18 at 19:30 Insulin Glargine (Lantus) 7 units QHS SQ Last administered on 11/05/18at 20:31; Start 11/05/18 at 21:00 Albuterol/ Ipratropium (Duoneb) 3 ml RTQID NEB ; Start 11/06/18 at 08:30; Stop 11/06/18 at 08:30; Status DC Methylprednisolone Sodium Succinate (SOLU-Medrol 125MG VIAL) 60 mg Q8HRS IV ; Start 11/06/18 at 09:00 Insulin Human Lispro (HumaLOG) 0-9 UNITS TIDWMEALS SQ ; Start 11/06/18 at 08:45 Dextrose (Dextrose 50%-Water Syringe) 12.5 gm PRN Q15MIN PRN IV SEE COMMENTS; Start 11/06/18 at 08:45; Status UNV Sodium Chloride 1,000 ml @ 1,000 mls/hr Q1H PRN IV hypotension; Start 11/06/18 at 09:59; Stop 11/06/18 at 15:58 Sodium Chloride 1,000 ml @ 400 mls/hr Q2H30M PRN IV PATENCY; Start 11/06/18 at 09:59; Stop 11/06/18 at 21:58 Info (PHARMACY MONITORING -- do not chart) 1 each PRN DAILY PRN MC SEE COMMENTS ; Start 11/06/18 at 10:00; Status UNV Info (PHARMACY MONITORING -- do not chart) 1 each PRN DAILY PRN MC SEE COMMENTS ; Start 11/06/18 at 10:00 Active Scripts Active Proair Respiclick (Albuterol Sulfate) 90 Mcg Aer.pow.ba 1 Puff IH PRN Q6HRS PRN Culturelle (Lactobacillus Rhamnosus Gg) 1 Each Cap.sprink 1 Cap PO BID 30 Days Combivent Respimat Inhal (Ipratropium/Albuterol Sulfate) 4 Gm Aer.w.adap 2 Inh IH QID 30 Days Labetalol Hcl 200 Mg Tablet 1 Tab PO DAILY 30 Days Children's Aspirin (Aspirin) 81 Mg Tab.chew 81 Mg PO DAILYWBKFT 30 Days Reported Omeprazole 40 Mg Capsule.dr 40 Mg PO DAILY Hydrocodone-Apap 5-325 (Hydrocodone Bit/Acetaminophen) 1 Each Tablet 1 Tab PO Q6HRS PRN Hydralazine Hcl 50 Mg Tablet 1 Tab PO TID Gabapentin (Gabapentin) 100 Mg Capsule 200 Mg PO BID Cetirizine Hcl 10 Mg Tablet 1 Tab PO DAILY Tylenol (Acetaminophen) 325 Mg Tablet 2 Tab PO PRN Q6HRS PRN Clonidine Hcl 0.1 Mg Tablet 0.1 Mg PO BID Alendronate Sodium 70 Mg Tablet 70 Mg PO Q2WKS Flonase Allergy Relief (Fluticasone Propionate) 9.9 Ml Good Thunder.susp 2 Sprays NS DAILY Calcium 600 + Vit D 400 Caplet (Calcium Carbonate/Vitamin D3) 1 Each Tablet 1 Each PO DAILY Renvela (Sevelamer Carbonate) 800 Mg Tablet 2 Tab PO [id number] Norvasc (Amlodipine Besylate) 10 Mg Tablet 10 Mg PO DAILY Windy-Abby Rx Tablet (Vit B Cmplx 3/Fa/Vit C/Biotin) 1 Each Tablet 1 Each PO DAILY Allergies Allergies: Coded Allergies: No Known Drug Allergies (Unverified , 12/13/17) ROS General: YES: Fatigue, Appetite PSYCHOLOGICAL ROS: YES: Depression Eyes: Yes Decreased vision HEENT: YES: [place]y ALLERGY AND IMMUNOLOGY: YES: Seasonal Allergies Respiratory: YES: Cough, Orthopnea, Shortness of breath Cardiovascular: yes Lt Headedness Gastrointestinal: Yes Constipation Genitourinary: YES Other (ANURIA) Musculoskeletal: Yes Muscular Weakness Neurological: Yes Weakness Skin: Yes Dry Skin Physical Exam General: Alert, Oriented X3, Cooperative, No acute distress, moderate distress HEENT: Atraumatic, PERRLA Lungs: Clear to auscultation Heart: Regular rate, Normal S1, Normal S2 Abdomen: Normal bowel sounds, Soft, No tenderness Extremities: No cyanosis Skin: No breakdown Neuro: Normal speech, Sensation intact Psych/Mental Status: Mental status NL, Mood NL MUSCULOSKELETAL: No deformity, No swelling Vitals VITALS Vital Signs Date Time Temp Pulse Resp B/P (MAP) Pulse Ox O2 Delivery O2 Flow Rate FiO2 11/06/18 08:44 99 Nasal Cannula 2.0 11/06/18 07:36 97.9 66 18 159/54 (89) 97.9 Labs Labs Laboratory Tests Test 11/05/18 11:15 11/05/18 11:35 11/05/18 12:05 11/05/18 17:35 White Blood Count 11.1 x10^3/uL (4.0-11.0) Red Blood Count 3.00 x10^6/uL (3.50-5.40) Hemoglobin 10.3 g/dL (12.0-15.5) Hematocrit 29.5 % (36.0-47.0) Mean Corpuscular Volume 98 fL (79-100) Mean Corpuscular Hemoglobin 34 pg (25-35) Mean Corpuscular Hemoglobin Concent 35 g/dL (31-37) Red Cell Distribution Width 15.3 % (11.5-14.5) Platelet Count 102 x10^3/uL (140-400) Neutrophils (%) (Auto) 90 % (31-73) Lymphocytes (%) (Auto) 5 % (24-48) Monocytes (%) (Auto) 3 % (0-9) Eosinophils (%) (Auto) 1 % (0-3) Basophils (%) (Auto) 1 % (0-3) Neutrophils # (Auto) 10.0 x10^3uL (1.8-7.7) Lymphocytes # (Auto) 0.5 x10^3/uL (1.0-4.8) Monocytes # (Auto) 0.4 x10^3/uL (0.0-1.1) Eosinophils # (Auto) 0.1 x10^3/uL (0.0-0.7) Basophils # (Auto) 0.1 x10^3/uL (0.0-0.2) Segmented Neutrophils % 90 % (35-66) Band Neutrophils % 2 % (0-9) Lymphocytes % 4 % (24-48) Monocytes % 2 % (0-10) Basophils % 1 % (0-3) Myelocytes % 1 % (0-0) Platelet Estimate Decreased (ADEQUATE) Anisocytosis Slight Sodium Level 139 mmol/L (136-145) Potassium Level 4.0 mmol/L (3.5-5.1) Chloride Level 100 mmol/L (98-107) Carbon Dioxide Level 28 mmol/L (21-32) Anion Gap 11 (6-14) Blood Urea Nitrogen 54 mg/dL (7-20) Creatinine 6.2 mg/dL (0.6-1.0) Estimated GFR (Cockcroft-Gault) 6.7 Glucose Level 234 mg/dL (70-99) Lactic Acid Level 0.6 mmol/L (0.4-2.0) Calcium Level 8.2 mg/dL (8.5-10.1) Troponin I Quantitative 0.045 ng/mL (0.000-0.055) Influenza Type A Antigen Negative (NEGATIVE) Influenza Type B Antigen Negative (NEGATIVE) Prothrombin Time 14.3 SEC (11.7-14.0) Prothromb Time International Ratio 1.1 (0.8-1.1) Activated Partial Thromboplast Time 28 SEC (24-38) Glucose (Fingerstick) 161 mg/dL (70-99) Test 11/05/18 20:19 11/06/18 03:25 11/06/18 07:24 Glucose (Fingerstick) 279 mg/dL (70-99) 70 mg/dL (70-99) White Blood Count 9.7 x10^3/uL (4.0-11.0) Red Blood Count 2.70 x10^6/uL (3.50-5.40) Hemoglobin 9.5 g/dL (12.0-15.5) Hematocrit 26.5 % (36.0-47.0) Mean Corpuscular Volume 98 fL (79-100) Mean Corpuscular Hemoglobin 35 pg (25-35) Mean Corpuscular Hemoglobin Concent 36 g/dL (31-37) Red Cell Distribution Width 15.3 % (11.5-14.5) Platelet Count 93 x10^3/uL (140-400) Neutrophils (%) (Auto) 75 % (31-73) Lymphocytes (%) (Auto) 16 % (24-48) Monocytes (%) (Auto) 6 % (0-9) Eosinophils (%) (Auto) 3 % (0-3) Basophils (%) (Auto) 0 % (0-3) Neutrophils # (Auto) 7.2 x10^3uL (1.8-7.7) Lymphocytes # (Auto) 1.6 x10^3/uL (1.0-4.8) Monocytes # (Auto) 0.6 x10^3/uL (0.0-1.1) Eosinophils # (Auto) 0.3 x10^3/uL (0.0-0.7) Basophils # (Auto) 0.0 x10^3/uL (0.0-0.2) Sodium Level 140 mmol/L (136-145) Potassium Level 3.6 mmol/L (3.5-5.1) Chloride Level 101 mmol/L (98-107) Carbon Dioxide Level 29 mmol/L (21-32) Anion Gap 10 (6-14) Blood Urea Nitrogen 67 mg/dL (7-20) Creatinine 7.6 mg/dL (0.6-1.0) Estimated GFR (Cockcroft-Gault) 5.3 Glucose Level 94 mg/dL (70-99) Calcium Level 8.1 mg/dL (8.5-10.1) Laboratory Tests Test 11/05/18 17:35 11/05/18 20:19 11/06/18 03:25 11/06/18 07:24 Glucose (Fingerstick) 161 mg/dL (70-99) 279 mg/dL (70-99) 70 mg/dL (70-99) White Blood Count 9.7 x10^3/uL (4.0-11.0) Red Blood Count 2.70 x10^6/uL (3.50-5.40) Hemoglobin 9.5 g/dL (12.0-15.5) Hematocrit 26.5 % (36.0-47.0) Mean Corpuscular Volume 98 fL (79-100) Mean Corpuscular Hemoglobin 35 pg (25-35) Mean Corpuscular Hemoglobin Concent 36 g/dL (31-37) Red Cell Distribution Width 15.3 % (11.5-14.5) Platelet Count 93 x10^3/uL (140-400) Neutrophils (%) (Auto) 75 % (31-73) Lymphocytes (%) (Auto) 16 % (24-48) Monocytes (%) (Auto) 6 % (0-9) Eosinophils (%) (Auto) 3 % (0-3) Basophils (%) (Auto) 0 % (0-3) Neutrophils # (Auto) 7.2 x10^3uL (1.8-7.7) Lymphocytes # (Auto) 1.6 x10^3/uL (1.0-4.8) Monocytes # (Auto) 0.6 x10^3/uL (0.0-1.1) Eosinophils # (Auto) 0.3 x10^3/uL (0.0-0.7) Basophils # (Auto) 0.0 x10^3/uL (0.0-0.2) Sodium Level 140 mmol/L (136-145) Potassium Level 3.6 mmol/L (3.5-5.1) Chloride Level 101 mmol/L (98-107) Carbon Dioxide Level 29 mmol/L (21-32) Anion Gap 10 (6-14) Blood Urea Nitrogen 67 mg/dL (7-20) Creatinine 7.6 mg/dL (0.6-1.0) Estimated GFR (Cockcroft-Gault) 5.3 Glucose Level 94 mg/dL (70-99) Calcium Level 8.1 mg/dL (8.5-10.1) Assessment/Plan Assessment/Plan IMP ESRD ANEMIA DM II HTN DYSPNEA WITH ACUTE RESP FAILURE PLAN ANTIBIOTICS HD TODAY UF TO DW AND MORE TOLERATED DAKOTA SANDOVAL MD Nov 06, 2018 12:53
[2018-11-06] MEDS ORDERED: PIP/TAZO PER PHARMACY MC PRN (14:30)
[2018-11-06 14:46] VITALS: BP 179/66
[2018-11-06] MEDS: methylPREDNISolone SOD SUCC PF 125 MG/2 ML VIAL. IV SCH ×3 (14:47→20:58)
[2018-11-06] MEDS: CALCIUM CARB/VIT D3 500/200 TABLET. PO SCH (14:48)
[2018-11-06] MEDS: FOLIC/VIT B COMP W-C (RENAL) TABLET. PO SCH (14:48)
[2018-11-06] MEDS: amLODIPine BESYLATE 10 MG TABLET PO SCH (14:48)
[2018-11-06] MEDS: ASPIRIN CHEWABLE 81 MG TABLET. PO SCH (14:48)
--- NOTE | 2018-11-06 14:48 | CONS ---
DATE OF CONSULTATION: 11/06/2018 PULMONARY CONSULTATION ATTENDING PHYSICIAN: Nicolasa Banuelos MD. REASON FOR CONSULTATION: Cough. HISTORY OF PRESENT ILLNESS: The patient is a 68-year-old female who has end-stage renal disease, on hemodialysis. She was recently hospitalized at [facility] for treatment of acute respiratory failure with atypical pneumonia and discharged on oral Augmentin and steroid taper. She had finished that course. The patient states that she was brought into the hospital with increasing shortness of breath for the last 2 days. She has a cough with [id number] sputum production. She says that when the EMS arrived, she had a fever of 102. She has a low-grade fever of 99.4 since in the hospital. I have reviewed the patient's chest x-ray, it shows mildly prominent interstitial markings. She has no interstitial lung disease based on a previous CT chest and likely this is interstitial pneumonia. She denies any headaches. No nausea or vomiting, no diarrhea. No chest pains. No leg edema, no focal weakness. PAST MEDICAL HISTORY: Significant for history of end-stage renal disease, history of type 2 diabetes, history of C. diff colitis, osteoporosis, osteoarthritis, mild coronary artery disease. PAST SURGICAL HISTORY: , tonsillectomy, bilateral tubal ligation and all others as discussed in H and P by Dr. Banuelos. ALLERGIES: None. MEDICATIONS: All reviewed as listed in the MRAD including IV steroids and DuoNebs, not on any antibiotics. REVIEW OF SYSTEMS: Twelve-point system obtained. Pertinent positives discussed in my history of present illness, otherwise noncontributory. All systems that were negative were reviewed as well. SOCIAL HISTORY: No significant history of tobacco use. FAMILY HISTORY: Noncontributory to lungs. PHYSICAL EXAMINATION: VITAL SIGNS: Reviewed. T-max of 99.4, but at home when EMS arrived was 102 per the patient's history; blood pressure 176/71, pulse ox 97% on 2 liters. NECK: Supple. LUNGS: With anterior rhonchi. CARDIOVASCULAR: Regular rate and rhythm. ABDOMEN: Soft. EXTREMITIES: With no pitting edema. LABORATORY DATA: Reviewed. White cell count was 11.1, now 9.7, hemoglobin 9.5. BUN and creatinine 67 and 7.6. Influenza negative. IMPRESSION: 1. Acute hypoxic respiratory failure secondary to likely interstitial pneumonia. She has a cough with yellow sputum production and had a fever of 102 at home and now low grade fever. I suspect gram-negative pneumonia. 2. End-stage renal disease, on hemodialysis. 3. No history of tobacco use. 4. Mild leukocytosis present on admission. 5. Influenza screen negative. RECOMMENDATIONS: 1. We will place the patient on broad-spectrum antibiotics, vancomycin and Zosyn. 2. Steroid taper. 3. Bronchodilators. 4. Hemodialysis per Renal. 5. Clinically not in CHF. 6. We will follow the response to antibiotics. YONG WAGNER MD DR: ANNY/ronaldo JOB#: [id number] / [id number]
[2018-11-06] MEDS: GABAPENTIN 100 MG CAPSULE. PO SCH ×2 (14:49→20:57)
[2018-11-06] MEDS: PANTOPRAZOLE 40 MG TABLET.DR. PO SCH (14:49)
[2018-11-06] MEDS: LABETALOL HCL 200 MG TABLET PO SCH (14:49)
[2018-11-06] MEDS: cloNIDine HCL 0.1 MG TABLET PO SCH ×2 (14:50→20:56)
[2018-11-06] MEDS: CETIRIZINE HCL 10 MG TABLET. PO SCH (14:51)
[2018-11-06] MEDS: HYDROcodone/APAP 5/325MG 1 TAB TABLET PO PRN (15:44)
[2018-11-06] MEDS: PIPERACILLIN/TAZOBACTAM 2.25 GM in IV NORMAL SALINE 50ML 50 ML IV SCH ×2 (15:44→20:58)
[2018-11-06] MEDS ORDERED: VANCOMYCIN 1.5 GM in IV NORMAL SALINE 500ML BAG 500 ML IV ONE (16:00)
[2018-11-06] MEDS: VANCOMYCIN PER PHARMACY MC PRN (19:32)
--- NOTE | 2018-11-06 19:33 | NUR ---
Pharmacy Vancomycin Dosing Note S:Consulted to monitor and dose vancomycin started 11/06/18. O:ROBBIN LYNN is a 68 year old F with Pneumonia . Height: 5 feet, 2 inches Weight: 60.542779 kg [place] Body Weight: 50.10 Adjusted Body Weight: 54.06 Dosing Weight: Actual Other Antibiotics: ZOSYN 11/06 - LABS: Last BUN: 67 Last Creatinine: 7.6 Creatinine Clearance: ESRD HD MWF mL/min Last WBC: 9.7 Last Platelets: 93 Tmax (past 24 hours): 99.4 Microbiology: 11/06 PENDING I/O: 600/- Drug Levels: Last level: on at Last dose given 11/06/18 at 1700 Vancomycin Dosing: Loading Dose: x1 Dosing Weight: Actual Target Trough: 15-20 A: Based on: WEIGHT, HD STATUS, P: 1. Give Vancomycin 1500 mg IV One Time 2. Follow up Random level on 11/08/18 at 0600 3. Pharmacy will continue to monitor, follow and adjust therapy as needed. BERYL SADLER [facility], 11/06/18 [id number]
[2018-11-06 19:35] VITALS: BP 129/47
[2018-11-06] MEDS: DARBEPOETIN ALFA 60 MCG/0.3 ML DISP.SYRIN. SQ SCH (21:00)
[2018-11-06] MEDS ORDERED: DARBEPOETIN ALFA 60 MCG/0.3 ML DISP.SYRIN. SQ SCH (21:00)
[2018-11-06] MEDS: INSULIN GLARGINE 300 UNITS/3 ML INSULN.PEN. SQ SCH (21:07)
[2018-11-06 23:28] VITALS: BP 140/52
[2018-11-07 03:40] VITALS: BP 164/64
[2018-11-07] MEDS: methylPREDNISolone SOD SUCC PF 125 MG/2 ML VIAL. IV SCH (05:58)
[2018-11-07] MEDS: SEVELAMER CARBONATE 800 MG TABLET. PO SCH ×3 (05:58→17:03)
[2018-11-07] MEDS: PIPERACILLIN/TAZOBACTAM 2.25 GM in IV NORMAL SALINE 50ML 50 ML IV SCH ×3 (05:59→22:28)
[2018-11-07 07:00] VITALS: BP 161/62
--- NOTE | 2018-11-07 07:59 | NUR ---
Chart review done. Pt admitted w/ acute hypoxic respiratory failure. Was recently discharged from [facility]. May benefit from PT/OT Eval and Treat. Addendum: 11/07/18 at 0800 by LUCERO MURRELL OT Amended: Links added.
[2018-11-07] MEDS: PANTOPRAZOLE 40 MG TABLET.DR. PO SCH (08:21)
[2018-11-07] MEDS: FOLIC/VIT B COMP W-C (RENAL) TABLET. PO SCH (08:21)
[2018-11-07] MEDS: GABAPENTIN 100 MG CAPSULE. PO SCH ×2 (08:21→22:29)
[2018-11-07] MEDS: CETIRIZINE HCL 10 MG TABLET. PO SCH (08:22)
[2018-11-07] MEDS: ASPIRIN CHEWABLE 81 MG TABLET. PO SCH (08:22)
[2018-11-07] MEDS: CALCIUM CARB/VIT D3 500/200 TABLET. PO SCH (08:22)
[2018-11-07] MEDS: amLODIPine BESYLATE 10 MG TABLET PO SCH (08:22)
[2018-11-07] MEDS: cloNIDine HCL 0.1 MG TABLET PO SCH ×2 (08:23→22:32)
[2018-11-07] MEDS: FLUTICASONE 50MCG/NASAL SPRAY 16GM BOTTLE. NS SCH (08:24)
[2018-11-07] MEDS: LABETALOL HCL 200 MG TABLET PO SCH (08:24)
[2018-11-07] MEDS: INSULIN LISPRO 300 UNITS/3 ML INSULN.PEN. SQ SCH ×3 (08:33→17:05)
--- NOTE | 2018-11-07 08:59 | PDOC ---
PROGRESS NOTES Subjective Subjective Patient reports breathing feels better than at admission. Does not feel short of breath at rest. Objective Objective Vital Signs Date Time Temp Pulse Resp B/P (MAP) Pulse Ox O2 Delivery O2 Flow Rate FiO2 11/07/18 08:24 74 161/62 11/07/18 07:00 97.9 18 99 Room Air 97.9 11/07/18 03:40 1.0 Intake and Output 11/07/18 07:01 Intake Total 900 ml Balance 900 ml Intake Oral 900 ml # Bowel Movements 1 Physical Exam Abdomen: Normal bowel sounds, Soft, No tenderness Heart: Regular rate Extremities: No edema General: Alert, Oriented X3, No acute distress Lungs: Other (BS mildly decreased throughout, fine crackles bilateral bases, no wheezes heard) Assessment Assessment Problems Medical Problems: (1) Hypoxia Status: Acute Plan Plan of Care 1. Acute hypoxic respiratory failure with atypical pneumonia - improving. Continue abx, nebs and Solumedrol, O2 when needed. 2. HTN - somewhat labile, continue home medication. 3. DM2 - glucose elevated due to steroids, increase Lantus, continue SS. 4. ESRD - stable, continue dialysis as scheduled. Comment Review of Relevant I have reviewed the following items cosmo (where applicable) has been applied. Labs Laboratory Tests Test 11/05/18 11:15 11/05/18 11:35 11/05/18 12:05 11/05/18 17:35 White Blood Count 11.1 x10^3/uL (4.0-11.0) Red Blood Count 3.00 x10^6/uL (3.50-5.40) Hemoglobin 10.3 g/dL (12.0-15.5) Hematocrit 29.5 % (36.0-47.0) Mean Corpuscular Volume 98 fL (79-100) Mean Corpuscular Hemoglobin 34 pg (25-35) Mean Corpuscular Hemoglobin Concent 35 g/dL (31-37) Red Cell Distribution Width 15.3 % (11.5-14.5) Platelet Count 102 x10^3/uL (140-400) Neutrophils (%) (Auto) 90 % (31-73) Lymphocytes (%) (Auto) 5 % (24-48) Monocytes (%) (Auto) 3 % (0-9) Eosinophils (%) (Auto) 1 % (0-3) Basophils (%) (Auto) 1 % (0-3) Neutrophils # (Auto) 10.0 x10^3uL (1.8-7.7) Lymphocytes # (Auto) 0.5 x10^3/uL (1.0-4.8) Monocytes # (Auto) 0.4 x10^3/uL (0.0-1.1) Eosinophils # (Auto) 0.1 x10^3/uL (0.0-0.7) Basophils # (Auto) 0.1 x10^3/uL (0.0-0.2) Segmented Neutrophils % 90 % (35-66) Band Neutrophils % 2 % (0-9) Lymphocytes % 4 % (24-48) Monocytes % 2 % (0-10) Basophils % 1 % (0-3) Myelocytes % 1 % (0-0) Platelet Estimate Decreased (ADEQUATE) Anisocytosis Slight Sodium Level 139 mmol/L (136-145) Potassium Level 4.0 mmol/L (3.5-5.1) Chloride Level 100 mmol/L (98-107) Carbon Dioxide Level 28 mmol/L (21-32) Anion Gap 11 (6-14) Blood Urea Nitrogen 54 mg/dL (7-20) Creatinine 6.2 mg/dL (0.6-1.0) Estimated GFR (Cockcroft-Gault) 6.7 Glucose Level 234 mg/dL (70-99) Lactic Acid Level 0.6 mmol/L (0.4-2.0) Calcium Level 8.2 mg/dL (8.5-10.1) Troponin I Quantitative 0.045 ng/mL (0.000-0.055) Influenza Type A Antigen Negative (NEGATIVE) Influenza Type B Antigen Negative (NEGATIVE) Prothrombin Time 14.3 SEC (11.7-14.0) Prothromb Time International Ratio 1.1 (0.8-1.1) Activated Partial Thromboplast Time 28 SEC (24-38) Glucose (Fingerstick) 161 mg/dL (70-99) Test 11/05/18 20:19 11/06/18 03:25 11/06/18 07:24 11/06/18 14:56 Glucose (Fingerstick) 279 mg/dL (70-99) 70 mg/dL (70-99) 82 mg/dL (70-99) White Blood Count 9.7 x10^3/uL (4.0-11.0) Red Blood Count 2.70 x10^6/uL (3.50-5.40) Hemoglobin 9.5 g/dL (12.0-15.5) Hematocrit 26.5 % (36.0-47.0) Mean Corpuscular Volume 98 fL (79-100) Mean Corpuscular Hemoglobin 35 pg (25-35) Mean Corpuscular Hemoglobin Concent 36 g/dL (31-37) Red Cell Distribution Width 15.3 % (11.5-14.5) Platelet Count 93 x10^3/uL (140-400) Neutrophils (%) (Auto) 75 % (31-73) Lymphocytes (%) (Auto) 16 % (24-48) Monocytes (%) (Auto) 6 % (0-9) Eosinophils (%) (Auto) 3 % (0-3) Basophils (%) (Auto) 0 % (0-3) Neutrophils # (Auto) 7.2 x10^3uL (1.8-7.7) Lymphocytes # (Auto) 1.6 x10^3/uL (1.0-4.8) Monocytes # (Auto) 0.6 x10^3/uL (0.0-1.1) Eosinophils # (Auto) 0.3 x10^3/uL (0.0-0.7) Basophils # (Auto) 0.0 x10^3/uL (0.0-0.2) Sodium Level 140 mmol/L (136-145) Potassium Level 3.6 mmol/L (3.5-5.1) Chloride Level 101 mmol/L (98-107) Carbon Dioxide Level 29 mmol/L (21-32) Anion Gap 10 (6-14) Blood Urea Nitrogen 67 mg/dL (7-20) Creatinine 7.6 mg/dL (0.6-1.0) Estimated GFR (Cockcroft-Gault) 5.3 Glucose Level 94 mg/dL (70-99) Calcium Level 8.1 mg/dL (8.5-10.1) Test 11/06/18 16:49 11/06/18 20:23 Glucose (Fingerstick) 143 mg/dL (70-99) 254 mg/dL (70-99) Laboratory Tests Test 11/06/18 14:56 11/06/18 16:49 11/06/18 20:23 Glucose (Fingerstick) 82 mg/dL (70-99) 143 mg/dL (70-99) 254 mg/dL (70-99) Medications Current Medications Albuterol/ Ipratropium (Duoneb) 3 ml 1X ONCE NEB Last administered on at 11:39; Start 11/05/18 at 11:15; Stop 11/05/18 at 11:16; Status DC Ondansetron HCl (Zofran) 4 mg PRN Q8HRS PRN IV NAUSEA/VOMITING; Start 11/05/18 at 13:15; Stop 11/06/18 at 13:14; Status DC Acetaminophen (Tylenol) 650 mg PRN Q4HRS PRN PO FEVER; Start 11/05/18 at 13:15 ; Stop 11/05/18 at 17:16; Status DC Acetaminophen (Tylenol) 650 mg PRN Q6HRS PRN PO MILD PAIN; Start 11/05/18 at 17 :15 Amlodipine Besylate (Norvasc) 10 mg DAILY PO Last administered on 11/07/18at 08: 22; Start 11/06/18 at 09:00 Aspirin (Children'S Aspirin) 81 mg DAILYWBKFT PO Last administered on at 08:22; Start 11/06/18 at 08:00 Cetirizine HCl (ZyrTEC) 10 mg DAILY PO Last administered on 11/07/18at 08:22; Start 11/06/18 at 09:00 Clonidine HCl (Catapres) 0.1 mg BID PO Last administered on 11/07/18at 08:23; Start 11/05/18 at 21:00 Gabapentin (Neurontin) 200 mg BID PO Last administered on 11/07/18at 08:21; Start 11/05/18 at 21:00 Acetaminophen/ Hydrocodone Bitart (Lortab 5/325) 1 tab PRN Q6HRS PRN PO MODERATE TO SEVERE PAIN Last administered on 11/06/18at 15:44; Start 11/05/18 at 17:15 Insulin Glargine (Lantus) 25 units QHS SQ ; Start 11/05/18 at 21:00; Stop at 21:00; Status DC Insulin Human Lispro (HumaLOG) TIDWMEALS SQ ; Start 11/06/18 at 08:00; Status UNV Sevelamer Carbonate (Renvela) 1,600 mg [id number] PO Last administered on at 05:58; Start 11/05/18 at 18:00 Albuterol Sulfate (Ventolin Neb Soln) 2.5 mg PRN Q6HRS PRN NEB SHORTNESS OF BREATH; Start 11/05/18 at 17:30 Non-Formulary Medication (Alendronate Sodium ) 70 mg Q2WKS PO ; Start 11/19/18 at 09:00; Status UNV Calcium/Vitamin D (Oscal D 500mg/ 200uts) 1 tab DAILY PO Last administered on at 08:22; Start 11/06/18 at 09:00 Fluticasone Propionate (Flonase) 2 spray DAILY NS Last administered on at 08:24; Start 11/06/18 at 09:00 Hydralazine HCl (Apresoline) 50 mg TID PO Last administered on 11/07/18at 08:22 ; Start 11/05/18 at 21:00 Albuterol/ Ipratropium (Duoneb) 3 ml RTQID NEB Last administered on 11/06/18at 20:08; Start 11/05/18 at 20:00 Labetalol HCl (Trandate) 200 mg DAILY PO Last administered on 11/07/18at 08:24; Start 11/06/18 at 09:00 Pantoprazole Sodium (Protonix) 40 mg DAILYAC PO Last administered on 11/07/18at 08:21; Start 11/06/18 at 07:30 Promethazine HCl/ Codeine (Phenergan With Codeine Oral Syrup) 5 ml PRN Q6HRS PRN PO COUGH; Start 11/05/18 at 17:30 Vitamin B Complex/ Vitamin C ([place]indy-Abby) 1 tab DAILY PO Last administered on at 08:21; Start 11/06/18 at 09:00 Insulin Human Lispro (HumaLOG) 0-5 UNITS TIDWMEALS SQ ; Start 11/06/18 at 08:00 ; Stop 11/06/18 at 08:36; Status DC Dextrose (Dextrose 50%-Water Syringe) 12.5 gm PRN Q15MIN PRN IV SEE COMMENTS; Start 11/05/18 at 19:30 Insulin Glargine (Lantus) 7 units QHS SQ Last administered on 11/06/18at 21:07; Start 11/05/18 at 21:00; Stop 11/07/18 at 08:50; Status DC Albuterol/ Ipratropium (Duoneb) 3 ml RTQID NEB ; Start 11/06/18 at 08:30; Stop 11/06/18 at 08:30; Status DC Methylprednisolone Sodium Succinate (SOLU-Medrol 125MG VIAL) 60 mg Q8HRS IV Last administered on 11/07/18at 05:58; Start 11/06/18 at 09:00 Insulin Human Lispro (HumaLOG) 0-9 UNITS TIDWMEALS SQ Last administered on 11/07at 08:33; Start 11/06/18 at 08:45 Dextrose (Dextrose 50%-Water Syringe) 12.5 gm PRN Q15MIN PRN IV SEE COMMENTS; Start 11/06/18 at 08:45; Status UNV Sodium Chloride 1,000 ml @ 1,000 mls/hr Q1H PRN IV hypotension; Start 11/06/18 at 09:59; Stop 11/06/18 at 15:58; Status DC Sodium Chloride 1,000 ml @ 400 mls/hr Q2H30M PRN IV PATENCY; Start 11/06/18 at 09:59; Stop 11/06/18 at 21:58; Status DC Info (PHARMACY MONITORING -- do not chart) 1 each PRN DAILY PRN MC SEE COMMENTS ; Start 11/06/18 at 10:00; Status UNV Info (PHARMACY MONITORING -- do not chart) 1 each PRN DAILY PRN MC SEE COMMENTS ; Start 11/06/18 at 10:00 Darbepoetin Yeison (Aranesp) 60 mcg WEEKLYHS SQ ; Start 11/06/18 at 21:00; Status UNV Darbepoetin Yeison (Aranesp) 60 mcg WEEKLYHS SQ Last administered on 11/06/18at 21 :00; Start 11/06/18 at 21:00 Piperacillin Sod/ Tazobactam Sod (Zosyn Per Pharmacy) 1 each PRN DAILY PRN MC SEE COMMENTS; Start 11/06/18 at 14:30 Vancomycin HCl (Vanco Per Pharmacy) 1 each PRN DAILY PRN MC SEE COMMENTS Last administered on 11/06/18at 19:32; Start 11/06/18 at 14:30 Piperacillin Sod/ Tazobactam Sod 2.25 gm/Sodium Chloride 50 ml @ 100 mls/hr Q8HRS IV Last administered on 11/07/18at 05:59; Start 11/06/18 at 15:00 Vancomycin HCl 1.5 gm/Sodium Chloride 500 ml @ 250 mls/hr 1X ONCE IV Last administered on 11/06/18at 16:00; Start 11/06/18 at 16:00; Stop 11/06/18 at 17:59 ; Status DC Vancomycin HCl (Vancomycin Random Level) 1 each 1X ONCE MC ; Start 11/08/18 at 06:00; Stop 11/08/18 at 06:01 Insulin Glargine (Lantus) 20 units QHS SQ ; Start 11/07/18 at 21:00; Status UNV Active Scripts Active Proair Respiclick (Albuterol Sulfate) 90 Mcg Aer.pow.ba 1 Puff IH PRN Q6HRS PRN Culturelle (Lactobacillus Rhamnosus Gg) 1 Each Cap.sprink 1 Cap PO BID 30 Days Combivent Respimat Inhal (Ipratropium/Albuterol Sulfate) 4 Gm Aer.w.adap 2 Inh IH QID 30 Days Labetalol Hcl 200 Mg Tablet 1 Tab PO DAILY 30 Days Children's Aspirin (Aspirin) 81 Mg Tab.chew 81 Mg PO DAILYWBKFT 30 Days Reported Omeprazole 40 Mg Capsule.dr 40 Mg PO DAILY Hydrocodone-Apap 5-325 (Hydrocodone Bit/Acetaminophen) 1 Each Tablet 1 Tab PO Q6HRS PRN Hydralazine Hcl 50 Mg Tablet 1 Tab PO TID Gabapentin (Gabapentin) 100 Mg Capsule 200 Mg PO BID Cetirizine Hcl 10 Mg Tablet 1 Tab PO DAILY Tylenol (Acetaminophen) 325 Mg Tablet 2 Tab PO PRN Q6HRS PRN Clonidine Hcl 0.1 Mg Tablet 0.1 Mg PO BID Alendronate Sodium 70 Mg Tablet 70 Mg PO Q2WKS Flonase Allergy Relief (Fluticasone Propionate) 9.9 Ml [place].susp 2 Sprays NS DAILY Calcium 600 + Vit D 400 Caplet (Calcium Carbonate/Vitamin D3) 1 Each Tablet 1 Each PO DAILY Renvela (Sevelamer Carbonate) 800 Mg Tablet 2 Tab PO [id number] Norvasc (Amlodipine Besylate) 10 Mg Tablet 10 Mg PO DAILY Windy-Abby Rx Tablet (Vit B Cmplx 3/Fa/Vit C/Biotin) 1 Each Tablet 1 Each PO DAILY Vitals/I & O Vital Sign - Last 24 Hours 11/06/18 11/06/18 11/06/18 11/06/18 14:46 14:48 14:49 14:50 Temp 98.2 98.2 Pulse 76 76 76 76 Resp 20 B/P (MAP) 179/66 (103) 179/66 179/66 179/66 Pulse Ox 93 O2 Delivery Nasal Cannula O2 Flow Rate 1.0 11/06/18 11/06/18 11/06/18 11/06/18 14:52 16:14 16:44 19:35 Temp 98.4 98.4 Pulse 76 76 Resp 16 B/P (MAP) 179/66 129/47 (74) Pulse Ox 99 90 O2 Delivery Nasal Cannula Nasal Cannula Nasal Cannula O2 Flow Rate 1.0 1.0 11/06/18 11/06/18 11/06/18 11/06/18 20:00 20:10 20:56 20:57 Pulse 76 B/P (MAP) 129/47 129/47 Pulse Ox 97 O2 Delivery Room Air Nasal Cannula O2 Flow Rate 1.0 11/06/18 11/07/18 11/07/18 11/07/18 23:28 03:40 07:00 08:22 Temp 98.5 97.5 97.9 98.5 97.5 97.9 Pulse 72 77 74 74 Resp 16 16 18 B/P (MAP) 140/52 (81) 164/64 (97) 161/62 (95) 161/62 Pulse Ox 93 97 99 O2 Delivery Nasal Cannula Nasal Cannula Room Air O2 Flow Rate 1.0 1.0 11/07/18 11/07/18 11/07/18 08:22 08:23 08:24 Pulse 74 74 74 B/P (MAP) 161/62 161/62 161/62 Intake and Output 11/06/18 11/06/18 11/07/18 15:01 23:01 07:01 Intake Total 100 ml 440 ml 360 ml Balance 100 ml 440 ml 360 ml ARELI MATIAS MD Nov 07, 2018 08:59
[2018-11-07] MEDS: IPRATRPIUM/ALBUTEROL 0.5/2.5MG 3 ML NEBU. NEB SCH ×4 (09:17→20:25)
--- NOTE | 2018-11-07 10:48 | PDOC ---
PULMONARY PROGRESS NOTES Subjective LESS COUGH Vitals Vital Signs Date Time Temp Pulse Resp B/P (MAP) Pulse Ox O2 Delivery O2 Flow Rate FiO2 11/07/18 09:18 97 Nasal Cannula 1.0 11/07/18 08:24 74 161/62 11/07/18 07:00 97.9 18 97.9 General: Alert, No acute distress Lungs: Clear Cardiovascular: S1, S2 Abdomen: Soft, Non-tender Neuro Exam: Alert Extremities: No Edema Skin: Warm Labs Laboratory Tests Test 11/05/18 11:15 11/05/18 11:35 11/05/18 12:05 11/05/18 17:35 White Blood Count 11.1 x10^3/uL (4.0-11.0) Red Blood Count 3.00 x10^6/uL (3.50-5.40) Hemoglobin 10.3 g/dL (12.0-15.5) Hematocrit 29.5 % (36.0-47.0) Mean Corpuscular Volume 98 fL (79-100) Mean Corpuscular Hemoglobin 34 pg (25-35) Mean Corpuscular Hemoglobin Concent 35 g/dL (31-37) Red Cell Distribution Width 15.3 % (11.5-14.5) Platelet Count 102 x10^3/uL (140-400) Neutrophils (%) (Auto) 90 % (31-73) Lymphocytes (%) (Auto) 5 % (24-48) Monocytes (%) (Auto) 3 % (0-9) Eosinophils (%) (Auto) 1 % (0-3) Basophils (%) (Auto) 1 % (0-3) Neutrophils # (Auto) 10.0 x10^3uL (1.8-7.7) Lymphocytes # (Auto) 0.5 x10^3/uL (1.0-4.8) Monocytes # (Auto) 0.4 x10^3/uL (0.0-1.1) Eosinophils # (Auto) 0.1 x10^3/uL (0.0-0.7) Basophils # (Auto) 0.1 x10^3/uL (0.0-0.2) Segmented Neutrophils % 90 % (35-66) Band Neutrophils % 2 % (0-9) Lymphocytes % 4 % (24-48) Monocytes % 2 % (0-10) Basophils % 1 % (0-3) Myelocytes % 1 % (0-0) Platelet Estimate Decreased (ADEQUATE) Anisocytosis Slight Sodium Level 139 mmol/L (136-145) Potassium Level 4.0 mmol/L (3.5-5.1) Chloride Level 100 mmol/L (98-107) Carbon Dioxide Level 28 mmol/L (21-32) Anion Gap 11 (6-14) Blood Urea Nitrogen 54 mg/dL (7-20) Creatinine 6.2 mg/dL (0.6-1.0) Estimated GFR (Cockcroft-Gault) 6.7 Glucose Level 234 mg/dL (70-99) Lactic Acid Level 0.6 mmol/L (0.4-2.0) Calcium Level 8.2 mg/dL (8.5-10.1) Troponin I Quantitative 0.045 ng/mL (0.000-0.055) Influenza Type A Antigen Negative (NEGATIVE) Influenza Type B Antigen Negative (NEGATIVE) Prothrombin Time 14.3 SEC (11.7-14.0) Prothromb Time International Ratio 1.1 (0.8-1.1) Activated Partial Thromboplast Time 28 SEC (24-38) Glucose (Fingerstick) 161 mg/dL (70-99) Test 11/05/18 20:19 11/06/18 03:25 11/06/18 07:24 11/06/18 14:56 Glucose (Fingerstick) 279 mg/dL (70-99) 70 mg/dL (70-99) 82 mg/dL (70-99) White Blood Count 9.7 x10^3/uL (4.0-11.0) Red Blood Count 2.70 x10^6/uL (3.50-5.40) Hemoglobin 9.5 g/dL (12.0-15.5) Hematocrit 26.5 % (36.0-47.0) Mean Corpuscular Volume 98 fL (79-100) Mean Corpuscular Hemoglobin 35 pg (25-35) Mean Corpuscular Hemoglobin Concent 36 g/dL (31-37) Red Cell Distribution Width 15.3 % (11.5-14.5) Platelet Count 93 x10^3/uL (140-400) Neutrophils (%) (Auto) 75 % (31-73) Lymphocytes (%) (Auto) 16 % (24-48) Monocytes (%) (Auto) 6 % (0-9) Eosinophils (%) (Auto) 3 % (0-3) Basophils (%) (Auto) 0 % (0-3) Neutrophils # (Auto) 7.2 x10^3uL (1.8-7.7) Lymphocytes # (Auto) 1.6 x10^3/uL (1.0-4.8) Monocytes # (Auto) 0.6 x10^3/uL (0.0-1.1) Eosinophils # (Auto) 0.3 x10^3/uL (0.0-0.7) Basophils # (Auto) 0.0 x10^3/uL (0.0-0.2) Sodium Level 140 mmol/L (136-145) Potassium Level 3.6 mmol/L (3.5-5.1) Chloride Level 101 mmol/L (98-107) Carbon Dioxide Level 29 mmol/L (21-32) Anion Gap 10 (6-14) Blood Urea Nitrogen 67 mg/dL (7-20) Creatinine 7.6 mg/dL (0.6-1.0) Estimated GFR (Cockcroft-Gault) 5.3 Glucose Level 94 mg/dL (70-99) Calcium Level 8.1 mg/dL (8.5-10.1) Test 11/06/18 16:49 11/06/18 20:23 Glucose (Fingerstick) 143 mg/dL (70-99) 254 mg/dL (70-99) Laboratory Tests Test 11/06/18 14:56 11/06/18 16:49 11/06/18 20:23 Glucose (Fingerstick) 82 mg/dL (70-99) 143 mg/dL (70-99) 254 mg/dL (70-99) Medications Active Scripts Medications Dose Route/Sig Max Daily Dose Days Date Category Proair Respiclick (Albuterol Sulfate) 90 Mcg Aer.pow.ba 1 Puff IH PRN Q6HRS PRN 04/10/18 Rx Culturelle (Lactobacillus Rhamnosus Gg) 1 Each Cap.sprink 1 Cap PO BID 30 12/15/17 Rx Combivent Respimat Inhal (Ipratropium/Albuterol Sulfate) 4 Gm Aer.w.adap 2 Inh IH QID 30 09/02/17 Rx Labetalol Hcl 200 Mg Tablet 1 Tab PO DAILY 30 09/02/17 Rx Omeprazole 40 Mg Capsule.dr 40 Mg PO DAILY 09/01/17 Reported Hydrocodone-Apap 5-325 (Hydrocodone Bit/Acetaminophen) 1 Each Tablet 1 Tab PO Q6HRS PRN 09/01/17 Reported Hydralazine Hcl 50 Mg Tablet 1 Tab PO TID 04/08/17 Reported Gabapentin (Gabapentin) 100 Mg Capsule 200 Mg PO BID 04/08/17 Reported Cetirizine Hcl 10 Mg Tablet 1 Tab PO DAILY 10/29/16 Reported Tylenol (Acetaminophen) 325 Mg Tablet 2 Tab PO PRN Q6HRS PRN 10/29/16 Reported Clonidine Hcl 0.1 Mg Tablet 0.1 Mg PO BID 09/17/16 Reported Alendronate Sodium 70 Mg Tablet 70 Mg PO Q2WKS 09/17/16 Reported Flonase Allergy Relief (Fluticasone Propionate) 9.9 Ml [place].susp 2 Sprays NS DAILY 09/17/16 Reported Children's Aspirin (Aspirin) 81 Mg Tab.chew 81 Mg PO DAILYWBKFT 30 11/04/15 Rx Calcium 600 + Vit D 400 Caplet (Calcium Carbonate/Vitamin D3) 1 Each Tablet 1 Each PO DAILY 10/24/15 Reported Renvela (Sevelamer Carbonate) 800 Mg Tablet 2 Tab PO [id number] 12/21/14 Reported Norvasc (Amlodipine Besylate) 10 Mg Tablet 10 Mg PO DAILY 11/11/13 Reported Windy-Abby Rx Tablet (Vit B Cmplx 3/Fa/Vit C/Biotin) 1 Each Tablet 1 Each PO DAILY 11/11/13 Reported Impression . 1. Acute hypoxic respiratory failure secondary to likely interstitial pneumonia. She has a cough with yellow sputum production and had a fever of 102 at home and now low grade fever. I suspect gram-negative pneumonia. 2. End-stage renal disease, on hemodialysis. 3. No history of tobacco use. 4. Mild leukocytosis present on admission. 5. Influenza screen negative. Plan . 1. broad-spectrum antibiotics, vancomycin and Zosyn. 2. Steroid taper. 3. Bronchodilators. 4. Hemodialysis per Renal. 5. Clinically not in CHF. 6. We will follow the response to antibiotics. YONG WAGNER MD Nov 07, 2018 10:48
[2018-11-07 11:00] VITALS: BP 104/42
--- NOTE | 2018-11-07 12:26 | PDOC ---
Renal-Progress Notes Subjective Notes Notes NONE History of Present Illness Hx of present illness STABLE Vitals Vitals Vital Signs Date Time Temp Pulse Resp B/P (MAP) Pulse Ox O2 Delivery O2 Flow Rate FiO2 11/07/18 11:54 Nasal Cannula 1.0 11/07/18 09:18 97 11/07/18 08:24 74 161/62 11/07/18 07:00 97.9 18 97.9 Weight Weight [ ] I.O. Intake and Output Intake and Output 11/07/18 07:01 Intake Total 900 ml Balance 900 ml Intake Oral 900 ml # Bowel Movements 1 Labs Labs Laboratory Tests Test 11/06/18 14:56 11/06/18 16:49 11/06/18 20:23 11/07/18 07:59 Glucose (Fingerstick) 82 mg/dL (70-99) 143 mg/dL (70-99) 254 mg/dL (70-99) 486 mg/dL (70-99) Test 11/07/18 10:59 Glucose (Fingerstick) 358 mg/dL (70-99) Review of Systems Constitutional: yes: alert, oriented Ears/Nose/Throat: Yes: no symptom reported Eyes: Yes: no symptom reported Pulmonary: Yes dyspnea Cardiovascular: Yes no symptom reported Gastrointestional: Yes: no symptom reported Genitourinary: Yes: no symptom reported Musculoskeletal: Yes: no symptom reported Skin: Yes no symptom reported Psychiatric/Neurological: Yes: no symptom reported Endocrine: Yes: no symptom reported Physical Exam General Appearance: no apparent distress Skin: warm Respiratory: decreased breath sounds Heart: S1S2 Abdomen: soft, bowel sounds present Genitourinary: bladder flat Extremities: pulses present Neurology: alert, oriented Musculoskeletal: Osteoarthritis, Other Assessment Assessment IMP ESRD ANEMIA PNEUMONIA DM II HTN PLAN HD TOMORROW ARANESP ANTIBIOTICS DAKOTA ARIAS MD Nov 07, 2018 12:26
[2018-11-07] MEDS: HYDROcodone/APAP 5/325MG 1 TAB TABLET PO PRN (12:28)
[2018-11-07] MEDS: methylPREDNISolone SOD SUCC PF 40 MG/ML VIAL. IV SCH ×2 (14:50→22:29)
[2018-11-07 15:00] VITALS: BP 118/48
--- NOTE | 2018-11-07 15:15 | NUR ---
SW following pt for anticipated dc needs. Pt lives at home with family. PT/OT pending. SW will await for PT/OT recommendation to assess needs for SNU vs HH. SW will continue to follow.
[2018-11-07] MEDS: VANCOMYCIN PER PHARMACY MC PRN (17:18)
[2018-11-07 19:20] VITALS: BP 128/53
[2018-11-07] MEDS ORDERED: INSULIN GLARGINE 300 UNITS/3 ML INSULN.PEN. SQ SCH (21:00)
[2018-11-07] MEDS: LACTOBACILLUS RHAMNOSUS GG 1 CAPSULE. PO SCH (22:29)
[2018-11-07 22:58] VITALS: BP 139/53
[2018-11-08 03:39] VITALS: BP 145/60
[2018-11-08 04:11] LABS: HEMATOCRIT 28.6 % (36.0-47.0); RED BLOOD COUNT 2.89 x10^6/uL (3.50-5.40); RED CELL DISTRIBUTION WIDTH 15.3 % (11.5-14.5)
[2018-11-08 04:28] LABS: CALCIUM 8.2 mg/dL (8.5-10.1); CREATININE 6.6 mg/dL (0.6-1.0); GFR 6.2; POTASSIUM 5.4 mmol/L (3.5-5.1)
[2018-11-08] MEDS ORDERED: VANCOMYCIN RANDOM LEVEL. MC ONE (06:00)
[2018-11-08] MEDS: PIPERACILLIN/TAZOBACTAM 2.25 GM in IV NORMAL SALINE 50ML 50 ML IV SCH ×3 (06:14→21:10)
[2018-11-08] MEDS: methylPREDNISolone SOD SUCC PF 40 MG/ML VIAL. IV SCH (06:14)
[2018-11-08] MEDS: PANTOPRAZOLE 40 MG TABLET.DR. PO SCH (07:30)
[2018-11-08] MEDS: IPRATRPIUM/ALBUTEROL 0.5/2.5MG 3 ML NEBU. NEB SCH ×4 (07:30→20:58)
[2018-11-08 07:38] VITALS: BP 141/56
[2018-11-08] MEDS: ASPIRIN CHEWABLE 81 MG TABLET. PO SCH (08:00)
[2018-11-08] MEDS: SEVELAMER CARBONATE 800 MG TABLET. PO SCH ×3 (08:51→18:02)
[2018-11-08] MEDS: FLUTICASONE 50MCG/NASAL SPRAY 16GM BOTTLE. NS SCH (08:51)
[2018-11-08] MEDS: INSULIN LISPRO 300 UNITS/3 ML INSULN.PEN. SQ SCH ×5 (08:54→17:00)
[2018-11-08] MEDS: amLODIPine BESYLATE 10 MG TABLET PO SCH (09:00)
[2018-11-08] MEDS: LABETALOL HCL 200 MG TABLET PO SCH (09:00)
[2018-11-08] MEDS: CALCIUM CARB/VIT D3 500/200 TABLET. PO SCH (09:00)
[2018-11-08] MEDS: GABAPENTIN 100 MG CAPSULE. PO SCH ×2 (09:00→21:10)
[2018-11-08] MEDS: LACTOBACILLUS RHAMNOSUS GG 1 CAPSULE. PO SCH ×2 (09:00→21:10)
[2018-11-08] MEDS: FOLIC/VIT B COMP W-C (RENAL) TABLET. PO SCH (09:00)
[2018-11-08] MEDS: CETIRIZINE HCL 10 MG TABLET. PO SCH (09:00)
[2018-11-08] MEDS: cloNIDine HCL 0.1 MG TABLET PO SCH ×2 (09:00→21:09)
--- NOTE | 2018-11-08 09:21 | PDOC ---
PROGRESS NOTES Subjective Subjective Patient without complaint, no SOA at rest but did desaturate with PT yesterday. Objective Objective Vital Signs Date Time Temp Pulse Resp B/P (MAP) Pulse Ox O2 Delivery O2 Flow Rate FiO2 11/08/18 07:38 97.4 74 16 141/56 (84) 96 Room Air 97.4 11/07/18 20:26 1.0 Intake and Output 11/08/18 07:01 Intake Total 500 ml Balance 500 ml Intake Oral 500 ml Physical Exam Abdomen: Normal bowel sounds, Soft, No tenderness Heart: Regular rate Extremities: No edema General: Alert, Oriented X3, No acute distress Lungs: Other (BS decreased throughout, fine crackles bilaterally) Assessment Assessment Problems Medical Problems: (1) Hypoxia Status: Acute Plan Plan of Care 1. Acute respiratory failure with atypical pneumonia - stable, continue abx, Solumedrol, nebs and O2 as needed. 2. ESRD - stable, dialysis as scheduled. 3. DM2 - FSBG still elevated, increase Lantus and add scheduled mealtime insulin , continue SS also. 4. HTN - controlled, continue present medications. Comment Review of Relevant I have reviewed the following items cosmo (where applicable) has been applied. Labs Laboratory Tests Test 11/06/18 14:56 11/06/18 16:49 11/06/18 20:23 11/07/18 07:59 Glucose (Fingerstick) 82 mg/dL (70-99) 143 mg/dL (70-99) 254 mg/dL (70-99) 486 mg/dL (70-99) Test 11/07/18 10:59 11/07/18 16:56 11/07/18 20:57 11/08/18 03:35 Glucose (Fingerstick) 358 mg/dL (70-99) 287 mg/dL (70-99) 230 mg/dL (70-99) White Blood Count 13.0 x10^3/uL (4.0-11.0) Red Blood Count 2.89 x10^6/uL (3.50-5.40) Hemoglobin 10.0 g/dL (12.0-15.5) Hematocrit 28.6 % (36.0-47.0) Mean Corpuscular Volume 99 fL (79-100) Mean Corpuscular Hemoglobin 35 pg (25-35) Mean Corpuscular Hemoglobin Concent 35 g/dL (31-37) Red Cell Distribution Width 15.3 % (11.5-14.5) Platelet Count 101 x10^3/uL (140-400) Sodium Level 137 mmol/L (136-145) Potassium Level 5.4 mmol/L (3.5-5.1) Chloride Level 99 mmol/L (98-107) Carbon Dioxide Level 27 mmol/L (21-32) Anion Gap 11 (6-14) Blood Urea Nitrogen 77 mg/dL (7-20) Creatinine 6.6 mg/dL (0.6-1.0) Estimated GFR (Cockcroft-Gault) 6.2 Glucose Level 257 mg/dL (70-99) Calcium Level 8.2 mg/dL (8.5-10.1) Random Vancomycin Level 22.6 mcg/mL Test 11/08/18 06:54 Glucose (Fingerstick) 223 mg/dL (70-99) Laboratory Tests Test 11/07/18 10:59 11/07/18 16:56 11/07/18 20:57 11/08/18 03:35 Glucose (Fingerstick) 358 mg/dL (70-99) 287 mg/dL (70-99) 230 mg/dL (70-99) White Blood Count 13.0 x10^3/uL (4.0-11.0) Red Blood Count 2.89 x10^6/uL (3.50-5.40) Hemoglobin 10.0 g/dL (12.0-15.5) Hematocrit 28.6 % (36.0-47.0) Mean Corpuscular Volume 99 fL (79-100) Mean Corpuscular Hemoglobin 35 pg (25-35) Mean Corpuscular Hemoglobin Concent 35 g/dL (31-37) Red Cell Distribution Width 15.3 % (11.5-14.5) Platelet Count 101 x10^3/uL (140-400) Sodium Level 137 mmol/L (136-145) Potassium Level 5.4 mmol/L (3.5-5.1) Chloride Level 99 mmol/L (98-107) Carbon Dioxide Level 27 mmol/L (21-32) Anion Gap 11 (6-14) Blood Urea Nitrogen 77 mg/dL (7-20) Creatinine 6.6 mg/dL (0.6-1.0) Estimated GFR (Cockcroft-Gault) 6.2 Glucose Level 257 mg/dL (70-99) Calcium Level 8.2 mg/dL (8.5-10.1) Random Vancomycin Level 22.6 mcg/mL Test 11/08/18 06:54 Glucose (Fingerstick) 223 mg/dL (70-99) Medications Current Medications Albuterol/ Ipratropium (Duoneb) 3 ml 1X ONCE NEB Last administered on at 11:39; Start 11/05/18 at 11:15; Stop 11/05/18 at 11:16; Status DC Ondansetron HCl (Zofran) 4 mg PRN Q8HRS PRN IV NAUSEA/VOMITING; Start 11/05/18 at 13:15; Stop 11/06/18 at 13:14; Status DC Acetaminophen (Tylenol) 650 mg PRN Q4HRS PRN PO FEVER; Start 11/05/18 at 13:15 ; Stop 11/05/18 at 17:16; Status DC Acetaminophen (Tylenol) 650 mg PRN Q6HRS PRN PO MILD PAIN; Start 11/05/18 at 17 :15 Amlodipine Besylate (Norvasc) 10 mg DAILY PO Last administered on 11/07/18at 08: 22; Start 11/06/18 at 09:00 Aspirin (Children'S Aspirin) 81 mg DAILYWBKFT PO Last administered on at 08:22; Start 11/06/18 at 08:00 Cetirizine HCl (ZyrTEC) 10 mg DAILY PO Last administered on 11/07/18at 08:22; Start 11/06/18 at 09:00 Clonidine HCl (Catapres) 0.1 mg BID PO Last administered on 11/07/18at 22:32; Start 11/05/18 at 21:00 Gabapentin (Neurontin) 200 mg BID PO Last administered on 11/07/18at 22:29; Start 11/05/18 at 21:00 Acetaminophen/ Hydrocodone Bitart (Lortab 5/325) 1 tab PRN Q6HRS PRN PO MODERATE TO SEVERE PAIN Last administered on 11/07/18at 12:28; Start 11/05/18 at 17:15 Insulin Glargine (Lantus) 25 units QHS SQ ; Start 11/05/18 at 21:00; Stop at 21:00; Status DC Insulin Human Lispro (HumaLOG) TIDWMEALS SQ ; Start 11/06/18 at 08:00; Status UNV Sevelamer Carbonate (Renvela) 1,600 mg [id number] PO Last administered on at 08:51; Start 11/05/18 at 18:00 Albuterol Sulfate (Ventolin Neb Soln) 2.5 mg PRN Q6HRS PRN NEB SHORTNESS OF BREATH; Start 11/05/18 at 17:30 Non-Formulary Medication (Alendronate Sodium ) 70 mg Q2WKS PO ; Start 11/19/18 at 09:00; Status UNV Calcium/Vitamin D (Oscal D 500mg/ 200uts) 1 tab DAILY PO Last administered on at 08:22; Start 11/06/18 at 09:00 Fluticasone Propionate (Flonase) 2 spray DAILY NS Last administered on at 08:24; Start 11/06/18 at 09:00 Hydralazine HCl (Apresoline) 50 mg TID PO Last administered on 11/07/18at 22:31 ; Start 11/05/18 at 21:00 Albuterol/ Ipratropium (Duoneb) 3 ml RTQID NEB Last administered on 11/08/18at 07:30; Start 11/05/18 at 20:00 Labetalol HCl (Trandate) 200 mg DAILY PO Last administered on 11/07/18at 08:24; Start 11/06/18 at 09:00 Pantoprazole Sodium (Protonix) 40 mg DAILYAC PO Last administered on 11/07/18at 08:21; Start 11/06/18 at 07:30 Promethazine HCl/ Codeine (Phenergan With Codeine Oral Syrup) 5 ml PRN Q6HRS PRN PO COUGH; Start 11/05/18 at 17:30 Vitamin B Complex/ Vitamin C ([place]-Abby) 1 tab DAILY PO Last administered on at 08:21; Start 11/06/18 at 09:00 Insulin Human Lispro (HumaLOG) 0-5 UNITS TIDWMEALS SQ ; Start 11/06/18 at 08:00 ; Stop 11/06/18 at 08:36; Status DC Dextrose (Dextrose 50%-Water Syringe) 12.5 gm PRN Q15MIN PRN IV SEE COMMENTS; Start 11/05/18 at 19:30 Insulin Glargine (Lantus) 7 units QHS SQ Last administered on 11/06/18at 21:07; Start 11/05/18 at 21:00; Stop 11/07/18 at 08:50; Status DC Albuterol/ Ipratropium (Duoneb) 3 ml RTQID NEB ; Start 11/06/18 at 08:30; Stop 11/06/18 at 08:30; Status DC Methylprednisolone Sodium Succinate (SOLU-Medrol 125MG VIAL) 60 mg Q8HRS IV Last administered on 11/07/18at 05:58; Start 11/06/18 at 09:00; Stop 11/07/18 at 10:50; Status DC Insulin Human Lispro (HumaLOG) 0-9 UNITS TIDWMEALS SQ Last administered on 11/08at 08:54; Start 11/06/18 at 08:45 Dextrose (Dextrose 50%-Water Syringe) 12.5 gm PRN Q15MIN PRN IV SEE COMMENTS; Start 11/06/18 at 08:45; Status UNV Sodium Chloride 1,000 ml @ 1,000 mls/hr Q1H PRN IV hypotension; Start 11/06/18 at 09:59; Stop 11/06/18 at 15:58; Status DC Sodium Chloride 1,000 ml @ 400 mls/hr Q2H30M PRN IV PATENCY; Start 11/06/18 at 09:59; Stop 11/06/18 at 21:58; Status DC Info (PHARMACY MONITORING -- do not chart) 1 each PRN DAILY PRN MC SEE COMMENTS ; Start 11/06/18 at 10:00; Status UNV Info (PHARMACY MONITORING -- do not chart) 1 each PRN DAILY PRN MC SEE COMMENTS ; Start 11/06/18 at 10:00 Darbepoetin Yeison (Aranesp) 60 mcg WEEKLYHS SQ ; Start 11/06/18 at 21:00; Status UNV Darbepoetin Yeison (Aranesp) 60 mcg WEEKLYHS SQ Last administered on 11/06/18at 21 :00; Start 11/06/18 at 21:00 Piperacillin Sod/ Tazobactam Sod (Zosyn Per Pharmacy) 1 each PRN DAILY PRN MC SEE COMMENTS; Start 11/06/18 at 14:30 Vancomycin HCl (Vanco Per Pharmacy) 1 each PRN DAILY PRN MC SEE COMMENTS Last administered on 11/07/18at 17:18; Start 11/06/18 at 14:30 Piperacillin Sod/ Tazobactam Sod 2.25 gm/Sodium Chloride 50 ml @ 100 mls/hr Q8HRS IV Last administered on 11/08/18at 06:14; Start 11/06/18 at 15:00 Vancomycin HCl 1.5 gm/Sodium Chloride 500 ml @ 250 mls/hr 1X ONCE IV Last administered on 11/06/18at 16:00; Start 11/06/18 at 16:00; Stop 11/06/18 at 17:59 ; Status DC Vancomycin HCl (Vancomycin Random Level) 1 each 1X ONCE MC ; Start 11/08/18 at 06:00; Stop 11/08/18 at 06:01; Status DC Insulin Glargine (Lantus) 20 units QHS SQ Last administered on 11/07/18at 22:36 ; Start 11/07/18 at 21:00 Methylprednisolone Sodium Succinate (SOLU-Medrol 40MG VIAL) 30 mg Q8HRS IV Last administered on 11/08/18at 06:14; Start 11/07/18 at 14:00 Lactobacillus Rhamnosus (Culturelle) 1 cap BID PO Last administered on at 22:29; Start 11/07/18 at 21:00 Active Scripts Active Proair Respiclick (Albuterol Sulfate) 90 Mcg Aer.pow.ba 1 Puff IH PRN Q6HRS PRN Culturelle (Lactobacillus Rhamnosus Gg) 1 Each Cap.sprink 1 Cap PO BID 30 Days Combivent Respimat Inhal (Ipratropium/Albuterol Sulfate) 4 Gm Aer.w.adap 2 Inh IH QID 30 Days Labetalol Hcl 200 Mg Tablet 1 Tab PO DAILY 30 Days Children's Aspirin (Aspirin) 81 Mg Tab.chew 81 Mg PO DAILYWBKFT 30 Days Reported Omeprazole 40 Mg Capsule.dr 40 Mg PO DAILY Hydrocodone-Apap 5-325 (Hydrocodone Bit/Acetaminophen) 1 Each Tablet 1 Tab PO Q6HRS PRN Hydralazine Hcl 50 Mg Tablet 1 Tab PO TID Gabapentin (Gabapentin) 100 Mg Capsule 200 Mg PO BID Cetirizine Hcl 10 Mg Tablet 1 Tab PO DAILY Tylenol (Acetaminophen) 325 Mg Tablet 2 Tab PO PRN Q6HRS PRN Clonidine Hcl 0.1 Mg Tablet 0.1 Mg PO BID Alendronate Sodium 70 Mg Tablet 70 Mg PO Q2WKS Flonase Allergy Relief (Fluticasone Propionate) 9.9 Ml [place].susp 2 Sprays NS DAILY Calcium 600 + Vit D 400 Caplet (Calcium Carbonate/Vitamin D3) 1 Each Tablet 1 Each PO DAILY Renvela (Sevelamer Carbonate) 800 Mg Tablet 2 Tab PO [id number] Norvasc (Amlodipine Besylate) 10 Mg Tablet 10 Mg PO DAILY Windy-Abby Rx Tablet (Vit B Cmplx 3/Fa/Vit C/Biotin) 1 Each Tablet 1 Each PO DAILY Vitals/I & O Vital Sign - Last 24 Hours 11/07/18 11/07/18 11/07/18 11/07/18 09:18 11:00 11:54 14:53 Temp 97.9 97.9 Pulse 66 71 Resp 18 B/P (MAP) 104/42 (62) 118/48 Pulse Ox 97 92 O2 Delivery Nasal Cannula Room Air Nasal Cannula O2 Flow Rate 1.0 1.0 11/07/18 11/07/18 11/07/18 11/07/18 15:00 15:56 19:20 20:00 Temp 97.9 97.6 97.9 97.6 Pulse 71 72 Resp 16 16 B/P (MAP) 118/48 (71) 128/53 (78) Pulse Ox 99 100 O2 Delivery Room Air Nasal Cannula Room Air Room Air O2 Flow Rate 1.0 11/07/18 11/07/18 11/07/18 11/07/18 20:26 22:31 22:32 22:58 Temp 97.5 97.5 Pulse 72 72 75 Resp 16 B/P (MAP) 139/53 139/53 139/53 (81) Pulse Ox 98 98 O2 Delivery Nasal Cannula Room Air O2 Flow Rate 1.0 11/08/18 11/08/18 11/08/18 03:39 07:31 07:38 Temp 97.7 97.4 97.7 97.4 Pulse 74 74 Resp 16 16 B/P (MAP) 145/60 (88) 141/56 (84) Pulse Ox 100 96 96 O2 Delivery Room Air Room Air Room Air Intake and Output 11/07/18 11/07/18 11/08/18 15:01 23:01 07:01 Intake Total 100 ml 400 ml Balance 100 ml 400 ml ARELI MATIAS MD Nov 08, 2018 09:21
[2018-11-08 10:54] VITALS: BP 147/82
[2018-11-08] MEDS ORDERED: IV NORMAL SALINE 1000ML BAG 1,000 ML IV PRN (12:00)
--- NOTE | 2018-11-08 12:29 | PDOC ---
Renal-Progress Notes Subjective Notes Notes STABLE History of Present Illness Hx of present illness BETTER Vitals Vitals Vital Signs Date Time Temp Pulse Resp B/P (MAP) Pulse Ox O2 Delivery O2 Flow Rate FiO2 11/08/18 11:44 96 Room Air 11/08/18 10:54 97.5 79 16 147/82 (103) 97.5 11/07/18 20:26 1.0 Weight Weight [ ] I.O. Intake and Output Intake and Output 11/08/18 07:01 Intake Total 500 ml Balance 500 ml Intake Oral 500 ml Labs Labs Laboratory Tests Test 11/07/18 16:56 11/07/18 20:57 11/08/18 03:35 11/08/18 06:54 Glucose (Fingerstick) 287 mg/dL (70-99) 230 mg/dL (70-99) 223 mg/dL (70-99) White Blood Count 13.0 x10^3/uL (4.0-11.0) Red Blood Count 2.89 x10^6/uL (3.50-5.40) Hemoglobin 10.0 g/dL (12.0-15.5) Hematocrit 28.6 % (36.0-47.0) Mean Corpuscular Volume 99 fL (79-100) Mean Corpuscular Hemoglobin 35 pg (25-35) Mean Corpuscular Hemoglobin Concent 35 g/dL (31-37) Red Cell Distribution Width 15.3 % (11.5-14.5) Platelet Count 101 x10^3/uL (140-400) Sodium Level 137 mmol/L (136-145) Potassium Level 5.4 mmol/L (3.5-5.1) Chloride Level 99 mmol/L (98-107) Carbon Dioxide Level 27 mmol/L (21-32) Anion Gap 11 (6-14) Blood Urea Nitrogen 77 mg/dL (7-20) Creatinine 6.6 mg/dL (0.6-1.0) Estimated GFR (Cockcroft-Gault) 6.2 Glucose Level 257 mg/dL (70-99) Calcium Level 8.2 mg/dL (8.5-10.1) Random Vancomycin Level 22.6 mcg/mL Test 11/08/18 11:12 Glucose (Fingerstick) 328 mg/dL (70-99) Review of Systems Constitutional: yes: alert, oriented Ears/Nose/Throat: Yes: no symptom reported Eyes: Yes: no symptom reported Pulmonary: Yes dyspnea Cardiovascular: Yes no symptom reported Gastrointestional: Yes: no symptom reported Genitourinary: Yes: no symptom reported Musculoskeletal: Yes: no symptom reported Skin: Yes no symptom reported Psychiatric/Neurological: Yes: no symptom reported Endocrine: Yes: no symptom reported Physical Exam General Appearance: no apparent distress Skin: warm Respiratory: decreased breath sounds Heart: S1S2 Abdomen: soft, bowel sounds present Genitourinary: bladder flat Extremities: pulses present Neurology: alert, oriented Musculoskeletal: Osteoarthritis, Other Assessment Assessment IMP ESRD ANEMIA PNEUMONIA DM II HTN PLAN HD TODAY UF TO [facility] CARLSON MD Nov 08, 2018 12:29
[2018-11-08] MEDS: VANCOMYCIN PER PHARMACY MC PRN ×2 (13:14→13:15)
--- NOTE | 2018-11-08 13:16 | NUR ---
Pharmacy Vancomycin Dosing Note S:Consulted to monitor and dose vancomycin started 11/06/18. O:ROBBIN LYNN is a 68 year old F with Pneumonia . Height: 5 feet, 2 inches Weight: 56.269040 kg [place] Body Weight: 50.10 Adjusted Body Weight: 54.06 Dosing Weight: Actual Other Antibiotics: ZOSYN 11/06 - LABS: Last BUN: 77 Last Creatinine: 6.6 Creatinine Clearance: ESRD HD MWF mL/min Last WBC: 13.0 Last Procalcitonin: 11/06 NO PCT 2/2 ESRD HD STATUS Tmax (past 24 hours): 99.4 Microbiology: 11/06 PENDING I/O: 600/- Drug Levels: Last Random level: 22.6 on 11/08/18 at 0335 Last dose given 11/06/18 at 1700 Vancomycin Dosing: Loading Dose: 1500 mg x1 Dosing Weight: Actual Target Trough: 15-20 A: Based on: LEVEL IN THERAPEUTIC RANGE, EXPECTED DEGREE OF HD DRUG REMOVAL, P: 1. INITIATE REGIMEN OF Vancomycin 500 mg IV MWF POST HD STARTING 11/10 2. Follow up Random level NEEDED. 3. Pharmacy will continue to monitor, follow and adjust therapy as needed. BERYL SADLER [facility], 11/08/18 [id number]
--- NOTE | 2018-11-08 13:43 | NUR ---
SW following pt. PT/OT recommends home with assistance. SW will arrange HH if ordered by Physician. SW will continue to evaluate dc needs.
--- NOTE | 2018-11-08 13:49 | PDOC ---
PULMONARY PROGRESS NOTES Subjective LESS COUGH Vitals Vital Signs Date Time Temp Pulse Resp B/P (MAP) Pulse Ox O2 Delivery O2 Flow Rate FiO2 11/08/18 11:44 96 Room Air 11/08/18 10:54 97.5 79 16 147/82 (103) 97.5 11/07/18 20:26 1.0 General: Alert, No acute distress Lungs: Other (less rhonchi) Cardiovascular: S1, S2 Abdomen: Soft, Non-tender Neuro Exam: Alert Extremities: No Edema Skin: Warm Labs Laboratory Tests Test 11/06/18 14:56 11/06/18 16:49 11/06/18 20:23 11/07/18 07:59 Glucose (Fingerstick) 82 mg/dL (70-99) 143 mg/dL (70-99) 254 mg/dL (70-99) 486 mg/dL (70-99) Test 11/07/18 10:59 11/07/18 16:56 11/07/18 20:57 11/08/18 03:35 Glucose (Fingerstick) 358 mg/dL (70-99) 287 mg/dL (70-99) 230 mg/dL (70-99) White Blood Count 13.0 x10^3/uL (4.0-11.0) Red Blood Count 2.89 x10^6/uL (3.50-5.40) Hemoglobin 10.0 g/dL (12.0-15.5) Hematocrit 28.6 % (36.0-47.0) Mean Corpuscular Volume 99 fL (79-100) Mean Corpuscular Hemoglobin 35 pg (25-35) Mean Corpuscular Hemoglobin Concent 35 g/dL (31-37) Red Cell Distribution Width 15.3 % (11.5-14.5) Platelet Count 101 x10^3/uL (140-400) Sodium Level 137 mmol/L (136-145) Potassium Level 5.4 mmol/L (3.5-5.1) Chloride Level 99 mmol/L (98-107) Carbon Dioxide Level 27 mmol/L (21-32) Anion Gap 11 (6-14) Blood Urea Nitrogen 77 mg/dL (7-20) Creatinine 6.6 mg/dL (0.6-1.0) Estimated GFR (Cockcroft-Gault) 6.2 Glucose Level 257 mg/dL (70-99) Calcium Level 8.2 mg/dL (8.5-10.1) Random Vancomycin Level 22.6 mcg/mL Test 11/08/18 06:54 11/08/18 11:12 Glucose (Fingerstick) 223 mg/dL (70-99) 328 mg/dL (70-99) Laboratory Tests Test 11/07/18 16:56 11/07/18 20:57 11/08/18 03:35 11/08/18 06:54 Glucose (Fingerstick) 287 mg/dL (70-99) 230 mg/dL (70-99) 223 mg/dL (70-99) White Blood Count 13.0 x10^3/uL (4.0-11.0) Red Blood Count 2.89 x10^6/uL (3.50-5.40) Hemoglobin 10.0 g/dL (12.0-15.5) Hematocrit 28.6 % (36.0-47.0) Mean Corpuscular Volume 99 fL (79-100) Mean Corpuscular Hemoglobin 35 pg (25-35) Mean Corpuscular Hemoglobin Concent 35 g/dL (31-37) Red Cell Distribution Width 15.3 % (11.5-14.5) Platelet Count 101 x10^3/uL (140-400) Sodium Level 137 mmol/L (136-145) Potassium Level 5.4 mmol/L (3.5-5.1) Chloride Level 99 mmol/L (98-107) Carbon Dioxide Level 27 mmol/L (21-32) Anion Gap 11 (6-14) Blood Urea Nitrogen 77 mg/dL (7-20) Creatinine 6.6 mg/dL (0.6-1.0) Estimated GFR (Cockcroft-Gault) 6.2 Glucose Level 257 mg/dL (70-99) Calcium Level 8.2 mg/dL (8.5-10.1) Random Vancomycin Level 22.6 mcg/mL Test 11/08/18 11:12 Glucose (Fingerstick) 328 mg/dL (70-99) Medications Active Scripts Medications Dose Route/Sig Max Daily Dose Days Date Category Proair Respiclick (Albuterol Sulfate) 90 Mcg Aer.pow.ba 1 Puff IH PRN Q6HRS PRN 04/10/18 Rx Culturelle (Lactobacillus Rhamnosus Gg) 1 Each Cap.sprink 1 Cap PO BID 30 12/15/17 Rx Combivent Respimat Inhal (Ipratropium/Albuterol Sulfate) 4 Gm Aer.w.adap 2 Inh IH QID 30 09/02/17 Rx Labetalol Hcl 200 Mg Tablet 1 Tab PO DAILY 30 09/02/17 Rx Omeprazole 40 Mg Capsule.dr 40 Mg PO DAILY 09/01/17 Reported Hydrocodone-Apap 5-325 (Hydrocodone Bit/Acetaminophen) 1 Each Tablet 1 Tab PO Q6HRS PRN 09/01/17 Reported Hydralazine Hcl 50 Mg Tablet 1 Tab PO TID 04/08/17 Reported Gabapentin (Gabapentin) 100 Mg Capsule 200 Mg PO BID 04/08/17 Reported Cetirizine Hcl 10 Mg Tablet 1 Tab PO DAILY 10/29/16 Reported Tylenol (Acetaminophen) 325 Mg Tablet 2 Tab PO PRN Q6HRS PRN 10/29/16 Reported Clonidine Hcl 0.1 Mg Tablet 0.1 Mg PO BID 09/17/16 Reported Alendronate Sodium 70 Mg Tablet 70 Mg PO Q2WKS 09/17/16 Reported Flonase Allergy Relief (Fluticasone Propionate) 9.9 Ml [place].susp 2 Sprays NS DAILY 09/17/16 Reported Children's Aspirin (Aspirin) 81 Mg Tab.chew 81 Mg PO DAILYWBKFT 30 11/04/15 Rx Calcium 600 + Vit D 400 Caplet (Calcium Carbonate/Vitamin D3) 1 Each Tablet 1 Each PO DAILY 10/24/15 Reported Renvela (Sevelamer Carbonate) 800 Mg Tablet 2 Tab PO [id number] 12/21/14 Reported Norvasc (Amlodipine Besylate) 10 Mg Tablet 10 Mg PO DAILY 11/11/13 Reported Windy-Abby Rx Tablet (Vit B Cmplx 3/Fa/Vit C/Biotin) 1 Each Tablet 1 Each PO DAILY 11/11/13 Reported Impression . 1. Acute hypoxic respiratory failure secondary to likely interstitial pneumonia. She has a cough with yellow sputum production and had a fever of 102 at home and now low grade fever. I suspect gram-negative pneumonia. 2. End-stage renal disease, on hemodialysis. 3. No history of tobacco use. 4. Mild leukocytosis present on admission. 5. Influenza screen negative. Plan . 1. broad-spectrum antibiotics, vancomycin and Zosyn. de-escalate tomorrow 2. Steroid taper. change to PO 3. Bronchodilators. 4. Hemodialysis per Renal. 5. Clinically not in CHF. 6. We will follow the response to antibiotics. D/W DR MATIAS, [facility] TUESDAY YONG WAGNER MD Nov 08, 2018 13:49
--- NOTE | 2018-11-08 13:55 | NUR ---
patient did not want to take morning meds before she went to dialysis.
[2018-11-08] MEDS ORDERED: DIALYSIS PATIENT. MC PRN ×2 (16:00)
[2018-11-08 19:30] VITALS: BP 146/58
[2018-11-08] MEDS ORDERED: INSULIN GLARGINE 300 UNITS/3 ML INSULN.PEN. SQ SCH (21:00)
[2018-11-08 23:10] VITALS: BP 148/57
[2018-11-09 03:14] VITALS: BP 158/61
[2018-11-09] MEDS: PIPERACILLIN/TAZOBACTAM 2.25 GM in IV NORMAL SALINE 50ML 50 ML IV SCH ×3 (06:41→21:37)
[2018-11-09] MEDS: SEVELAMER CARBONATE 800 MG TABLET. PO SCH ×3 (06:41→18:02)
[2018-11-09] MEDS: INSULIN LISPRO 300 UNITS/3 ML INSULN.PEN. SQ SCH ×4 (07:30→17:00)
[2018-11-09 07:45] VITALS: BP 174/68
[2018-11-09] MEDS: DEXTROSE 50% 25 GM / 50ML DISP.SYRIN. IV PRN ×2 (08:11→08:12)
--- NOTE | 2018-11-09 08:42 | PDOC ---
PROGRESS NOTES Subjective Subjective Patient reports cough at night, did not realize she had cough syrup ordered prn. Denies SOA. Objective Objective Vital Signs Date Time Temp Pulse Resp B/P (MAP) Pulse Ox O2 Delivery O2 Flow Rate FiO2 11/09/18 07:45 98.4 78 18 174/68 (103) 89 Room Air 98.4 11/07/18 20:26 1.0 Intake and Output 11/09/18 07:01 Intake Total 680 ml Balance 680 ml Intake Oral 680 ml Physical Exam Abdomen: Normal bowel sounds, Soft, No tenderness Heart: Regular rate Extremities: No edema General: Alert, Oriented X3, No acute distress Lungs: Other (BS mildly decreased throughout, few crackles bilateral bases) Assessment Assessment Problems Medical Problems: (1) Hypoxia Status: Acute Plan Plan of Care 1. Acute respiratory failure with atypical pneumonia - hypoxia appears resolved. Now on decreased steroids per Dr Avina. Hope to be able to send home tomorrow if improvement continues. Cough syrup at HS. 2. DM2 - glucose was elevated but decreased after decrease in steroid dose. Will decrease insulins and follow. 3. HTN - fairly well controlled, continue home medication. 4. ESRD - dialysis tomorrow as scheduled. Comment Review of Relevant I have reviewed the following items cosmo (where applicable) has been applied. Labs Laboratory Tests Test 11/07/18 10:59 11/07/18 16:56 11/07/18 20:57 11/08/18 03:35 Glucose (Fingerstick) 358 mg/dL (70-99) 287 mg/dL (70-99) 230 mg/dL (70-99) White Blood Count 13.0 x10^3/uL (4.0-11.0) Red Blood Count 2.89 x10^6/uL (3.50-5.40) Hemoglobin 10.0 g/dL (12.0-15.5) Hematocrit 28.6 % (36.0-47.0) Mean Corpuscular Volume 99 fL (79-100) Mean Corpuscular Hemoglobin 35 pg (25-35) Mean Corpuscular Hemoglobin Concent 35 g/dL (31-37) Red Cell Distribution Width 15.3 % (11.5-14.5) Platelet Count 101 x10^3/uL (140-400) Sodium Level 137 mmol/L (136-145) Potassium Level 5.4 mmol/L (3.5-5.1) Chloride Level 99 mmol/L (98-107) Carbon Dioxide Level 27 mmol/L (21-32) Anion Gap 11 (6-14) Blood Urea Nitrogen 77 mg/dL (7-20) Creatinine 6.6 mg/dL (0.6-1.0) Estimated GFR (Cockcroft-Gault) 6.2 Glucose Level 257 mg/dL (70-99) Calcium Level 8.2 mg/dL (8.5-10.1) Random Vancomycin Level 22.6 mcg/mL Test 11/08/18 06:54 11/08/18 11:12 11/08/18 17:58 11/08/18 20:24 Glucose (Fingerstick) 223 mg/dL (70-99) 328 mg/dL (70-99) 87 mg/dL (70-99) 167 mg/dL (70-99) Test 11/09/18 08:02 11/09/18 08:25 Glucose (Fingerstick) 19 mg/dL (70-99) 150 mg/dL (70-99) Laboratory Tests Test 11/08/18 11:12 11/08/18 17:58 11/08/18 20:24 11/09/18 08:02 Glucose (Fingerstick) 328 mg/dL (70-99) 87 mg/dL (70-99) 167 mg/dL (70-99) 19 mg/dL (70-99) Test 11/09/18 08:25 Glucose (Fingerstick) 150 mg/dL (70-99) Medications Current Medications Albuterol/ Ipratropium (Duoneb) 3 ml 1X ONCE NEB Last administered on at 11:39; Start 11/05/18 at 11:15; Stop 11/05/18 at 11:16; Status DC Ondansetron HCl (Zofran) 4 mg PRN Q8HRS PRN IV NAUSEA/VOMITING; Start 11/05/18 at 13:15; Stop 11/06/18 at 13:14; Status DC Acetaminophen (Tylenol) 650 mg PRN Q4HRS PRN PO FEVER; Start 11/05/18 at 13:15 ; Stop 11/05/18 at 17:16; Status DC Acetaminophen (Tylenol) 650 mg PRN Q6HRS PRN PO MILD PAIN; Start 11/05/18 at 17 :15 Amlodipine Besylate (Norvasc) 10 mg DAILY PO Last administered on 11/07/18 08: 22; Start 11/06/18 at 09:00 Aspirin (Children'S Aspirin) 81 mg DAILYWBKFT PO Last administered on 08:22; Start 11/06/18 at 08:00 Cetirizine HCl (ZyrTEC) 10 mg DAILY PO Last administered on 11/07/18 08:22; Start 11/06/18 at 09:00 Clonidine HCl (Catapres) 0.1 mg BID PO Last administered on 11/08/18 21:09; Start 11/05/18 at 21:00 Gabapentin (Neurontin) 200 mg BID PO Last administered on 11/08/18at 21:10; Start 11/05/18 at 21:00 Acetaminophen/ Hydrocodone Bitart (Lortab 5/325) 1 tab PRN Q6HRS PRN PO MODERATE TO SEVERE PAIN Last administered on 11/07/18at 12:28; Start 11/05/18 at 17:15 Insulin Glargine (Lantus) 25 units QHS SQ ; Start 11/05/18 at 21:00; Stop at 21:00; Status DC Insulin Human Lispro (HumaLOG) TIDWMEALS SQ ; Start 11/06/18 at 08:00; Status UNV Sevelamer Carbonate (Renvela) 1,600 mg [id number] PO Last administered on at 06:41; Start 11/05/18 at 18:00 Albuterol Sulfate (Ventolin Neb Soln) 2.5 mg PRN Q6HRS PRN NEB SHORTNESS OF BREATH; Start 11/05/18 at 17:30 Non-Formulary Medication (Alendronate Sodium ) 70 mg Q2WKS PO ; Start 11/19/18 at 09:00; Status UNV Calcium/Vitamin D (Oscal D 500mg/ 200uts) 1 tab DAILY PO Last administered on at 08:22; Start 11/06/18 at 09:00 Fluticasone Propionate (Flonase) 2 spray DAILY NS Last administered on at 08:24; Start 11/06/18 at 09:00 Hydralazine HCl (Apresoline) 50 mg TID PO Last administered on 11/08/18at 21:09 ; Start 11/05/18 at 21:00 Albuterol/ Ipratropium (Duoneb) 3 ml RTQID NEB Last administered on 11/08/18at 20:58; Start 11/05/18 at 20:00 Labetalol HCl (Trandate) 200 mg DAILY PO Last administered on 11/07/18at 08:24; Start 11/06/18 at 09:00 Pantoprazole Sodium (Protonix) 40 mg DAILYAC PO Last administered on 11/07/18at 08:21; Start 11/06/18 at 07:30 Promethazine HCl/ Codeine (Phenergan With Codeine Oral Syrup) 5 ml PRN Q6HRS PRN PO COUGH; Start 11/05/18 at 17:30 Vitamin B Complex/ Vitamin C ([place]indy-Abby) 1 tab DAILY PO Last administered on at 08:21; Start 11/06/18 at 09:00 Insulin Human Lispro (HumaLOG) 0-5 UNITS TIDWMEALS SQ ; Start 11/06/18 at 08:00 ; Stop 11/06/18 at 08:36; Status DC Dextrose (Dextrose 50%-Water Syringe) 12.5 gm PRN Q15MIN PRN IV SEE COMMENTS Last administered on 11/09/18at 08:12; Start 11/05/18 at 19:30 Insulin Glargine (Lantus) 7 units QHS SQ Last administered on 11/06/18at 21:07; Start 11/05/18 at 21:00; Stop 11/07/18 at 08:50; Status DC Albuterol/ Ipratropium (Duoneb) 3 ml RTQID NEB ; Start 11/06/18 at 08:30; Stop 11/06/18 at 08:30; Status DC Methylprednisolone Sodium Succinate (SOLU-Medrol 125MG VIAL) 60 mg Q8HRS IV Last administered on 11/07/18at 05:58; Start 11/06/18 at 09:00; Stop 11/07/18 at 10:50; Status DC Insulin Human Lispro (HumaLOG) 0-9 UNITS TIDWMEALS SQ Last administered on 11/08at 12:09; Start 11/06/18 at 08:45 Dextrose (Dextrose 50%-Water Syringe) 12.5 gm PRN Q15MIN PRN IV SEE COMMENTS; Start 11/06/18 at 08:45; Status UNV Sodium Chloride 1,000 ml @ 1,000 mls/hr Q1H PRN IV hypotension; Start 11/06/18 at 09:59; Stop 11/06/18 at 15:58; Status DC Sodium Chloride 1,000 ml @ 400 mls/hr Q2H30M PRN IV PATENCY; Start 11/06/18 at 09:59; Stop 11/06/18 at 21:58; Status DC Info (PHARMACY MONITORING -- do not chart) 1 each PRN DAILY PRN MC SEE COMMENTS ; Start 11/06/18 at 10:00; Status UNV Info (PHARMACY MONITORING -- do not chart) 1 each PRN DAILY PRN MC SEE COMMENTS ; Start 11/06/18 at 10:00 Darbepoetin Yeison (Aranesp) 60 mcg WEEKLYHS SQ ; Start 11/06/18 at 21:00; Status UNV Darbepoetin Yeison (Aranesp) 60 mcg WEEKLYHS SQ Last administered on 11/06/18at 21 :00; Start 11/06/18 at 21:00 Piperacillin Sod/ Tazobactam Sod (Zosyn Per Pharmacy) 1 each PRN DAILY PRN MC SEE COMMENTS; Start 11/06/18 at 14:30 Vancomycin HCl (Vanco Per Pharmacy) 1 each PRN DAILY PRN MC SEE COMMENTS Last administered on 11/08/18at 13:15; Start 11/06/18 at 14:30 Piperacillin Sod/ Tazobactam Sod 2.25 gm/Sodium Chloride 50 ml @ 100 mls/hr Q8HRS IV Last administered on 11/09/18at 06:41; Start 11/06/18 at 15:00 Vancomycin HCl 1.5 gm/Sodium Chloride 500 ml @ 250 mls/hr 1X ONCE IV Last administered on 11/06/18at 16:00; Start 11/06/18 at 16:00; Stop 11/06/18 at 17:59 ; Status DC Vancomycin HCl (Vancomycin Random Level) 1 each 1X ONCE MC Last administered on 11/08/18at 03:35; Start 11/08/18 at 06:00; Stop 11/08/18 at 06:01; Status DC Insulin Glargine (Lantus) 20 units QHS SQ Last administered on 11/07/18at 22:36 ; Start 11/07/18 at 21:00; Stop 11/08/18 at 09:19; Status DC Methylprednisolone Sodium Succinate (SOLU-Medrol 40MG VIAL) 30 mg Q8HRS IV Last administered on 11/08/18at 06:14; Start 11/07/18 at 14:00; Stop 11/08/18 at 13:48; Status DC Lactobacillus Rhamnosus (Culturelle) 1 cap BID PO Last administered on at 21:10; Start 11/07/18 at 21:00 Insulin Glargine (Lantus) 30 units QHS SQ Last administered on 11/08/18at 21:23 ; Start 11/08/18 at 21:00 Insulin Human Lispro (HumaLOG) 8 units TIDAC SQ Last administered on 11/08/18at 12:08; Start 11/08/18 at 11:30 Vancomycin HCl 500 mg/Sodium Chloride 100 ml @ 100 mls/hr QMWF IV ; Start 11/10 at 16:00 Prednisone (Prednisone) 20 mg DAILY PO ; Start 11/09/18 at 09:00 Sodium Chloride 1,000 ml @ 400 mls/hr Q2H30M PRN IV PATENCY; Start 11/08/18 at 12:00; Stop 11/08/18 at 23:59; Status DC Info (PHARMACY MONITORING -- do not chart) 1 each PRN DAILY PRN MC SEE COMMENTS ; Start 11/08/18 at 16:00; Status UNV Info (PHARMACY MONITORING -- do not chart) 1 each PRN DAILY PRN MC SEE COMMENTS ; Start 11/08/18 at 16:00 Active Scripts Active Proair Respiclick (Albuterol Sulfate) 90 Mcg Aer.pow.ba 1 Puff IH PRN Q6HRS PRN Culturelle (Lactobacillus Rhamnosus Gg) 1 Each Cap.sprink 1 Cap PO BID 30 Days Combivent Respimat Inhal (Ipratropium/Albuterol Sulfate) 4 Gm Aer.w.adap 2 Inh IH QID 30 Days Labetalol Hcl 200 Mg Tablet 1 Tab PO DAILY 30 Days Children's Aspirin (Aspirin) 81 Mg Tab.chew 81 Mg PO DAILYWBKFT 30 Days Reported Omeprazole 40 Mg Capsule.dr 40 Mg PO DAILY Hydrocodone-Apap 5-325 (Hydrocodone Bit/Acetaminophen) 1 Each Tablet 1 Tab PO Q6HRS PRN Hydralazine Hcl 50 Mg Tablet 1 Tab PO TID Gabapentin (Gabapentin) 100 Mg Capsule 200 Mg PO BID Cetirizine Hcl 10 Mg Tablet 1 Tab PO DAILY Tylenol (Acetaminophen) 325 Mg Tablet 2 Tab PO PRN Q6HRS PRN Clonidine Hcl 0.1 Mg Tablet 0.1 Mg PO BID Alendronate Sodium 70 Mg Tablet 70 Mg PO Q2WKS Flonase Allergy Relief (Fluticasone Propionate) 9.9 Ml [place].susp 2 Sprays NS DAILY Calcium 600 + Vit D 400 Caplet (Calcium Carbonate/Vitamin D3) 1 Each Tablet 1 Each PO DAILY Renvela (Sevelamer Carbonate) 800 Mg Tablet 2 Tab PO [id number] Norvasc (Amlodipine Besylate) 10 Mg Tablet 10 Mg PO DAILY Windy-Abby Rx Tablet (Vit B Cmplx 3/Fa/Vit C/Biotin) 1 Each Tablet 1 Each PO DAILY Vitals/I & O Vital Sign - Last 24 Hours 11/08/18 11/08/18 11/08/18 11/08/18 10:54 11:44 15:56 19:30 Temp 97.5 98.4 97.5 98.4 Pulse 79 86 Resp 16 20 B/P (MAP) 147/82 (103) 146/58 (87) Pulse Ox 96 96 96 O2 Delivery Room Air Room Air Room Air Room Air 11/08/18 11/08/18 11/08/18 11/08/18 20:00 20:59 21:09 21:09 Pulse 86 86 B/P (MAP) 146/58 146/58 Pulse Ox 97 O2 Delivery Room Air Room Air 11/08/18 11/09/18 11/09/18 23:10 03:14 07:45 Temp 98.6 98.1 98.4 98.6 98.1 98.4 Pulse 85 76 78 Resp 20 18 18 B/P (MAP) 148/57 (87) 158/61 (93) 174/68 (103) Pulse Ox 94 95 89 O2 Delivery Room Air Room Air Room Air Intake and Output 11/08/18 11/08/18 11/09/18 15:01 23:01 07:01 Intake Total 360 ml 120 ml 200 ml Balance 360 ml 120 ml 200 ml ARELI MATIAS MD Nov 09, 2018 08:42
[2018-11-09] MEDS: IPRATRPIUM/ALBUTEROL 0.5/2.5MG 3 ML NEBU. NEB SCH ×4 (09:14→20:27)
[2018-11-09] MEDS: FOLIC/VIT B COMP W-C (RENAL) TABLET. PO SCH (11:00)
[2018-11-09] MEDS: FLUTICASONE 50MCG/NASAL SPRAY 16GM BOTTLE. NS SCH (11:00)
[2018-11-09] MEDS: GABAPENTIN 100 MG CAPSULE. PO SCH ×2 (11:00→21:35)
[2018-11-09] MEDS: predniSONE 20 MG TABLET PO SCH (11:01)
[2018-11-09] MEDS: PANTOPRAZOLE 40 MG TABLET.DR. PO SCH (11:01)
[2018-11-09] MEDS: amLODIPine BESYLATE 10 MG TABLET PO SCH (11:01)
[2018-11-09] MEDS: LABETALOL HCL 200 MG TABLET PO SCH (11:01)
[2018-11-09] MEDS: cloNIDine HCL 0.1 MG TABLET PO SCH ×2 (11:02→21:36)
[2018-11-09] MEDS: CETIRIZINE HCL 10 MG TABLET. PO SCH (11:02)
[2018-11-09] MEDS: CALCIUM CARB/VIT D3 500/200 TABLET. PO SCH (11:02)
[2018-11-09] MEDS: ASPIRIN CHEWABLE 81 MG TABLET. PO SCH (11:02)
[2018-11-09] MEDS: LACTOBACILLUS RHAMNOSUS GG 1 CAPSULE. PO SCH ×2 (11:03→21:35)
[2018-11-09] MEDS: HYDROcodone/APAP 5/325MG 1 TAB TABLET PO PRN (11:11)
[2018-11-09 11:16] VITALS: BP 134/62
--- NOTE | 2018-11-09 11:40 | PDOC ---
Renal-Progress Notes Subjective Notes Notes COUGHING History of Present Illness Hx of present illness BETTER Vitals Vitals Vital Signs Date Time Temp Pulse Resp B/P (MAP) Pulse Ox O2 Delivery O2 Flow Rate FiO2 11/09/18 11:16 97.4 76 18 134/62 (86) 94 Room Air 97.4 Weight Weight [ ] I.O. Intake and Output Intake and Output 11/09/18 07:01 Intake Total 680 ml Balance 680 ml Intake Oral 680 ml Labs Labs Laboratory Tests Test 11/08/18 17:58 11/08/18 20:24 11/09/18 08:02 11/09/18 08:25 Glucose (Fingerstick) 87 mg/dL (70-99) 167 mg/dL (70-99) 19 mg/dL (70-99) 150 mg/dL (70-99) Review of Systems Constitutional: yes: alert, oriented Ears/Nose/Throat: Yes: no symptom reported Eyes: Yes: no symptom reported Pulmonary: Yes dyspnea Cardiovascular: Yes no symptom reported Gastrointestional: Yes: no symptom reported Genitourinary: Yes: no symptom reported Musculoskeletal: Yes: no symptom reported Skin: Yes no symptom reported Psychiatric/Neurological: Yes: no symptom reported Endocrine: Yes: no symptom reported Physical Exam General Appearance: no apparent distress Skin: warm Respiratory: decreased breath sounds Heart: S1S2 Abdomen: soft, bowel sounds present Genitourinary: bladder flat Extremities: pulses present Neurology: alert, oriented Musculoskeletal: Other Assessment Assessment IMP ESRD ANEMIA PNEUMONIA DM II HTN PLAN HD TOMORROW ARANESP ANTIBIOTICS/STEROIDS DAKOTA ARIAS MD Nov 09, 2018 11:40
--- NOTE | 2018-11-09 11:58 | PDOC ---
PULMONARY PROGRESS NOTES Subjective HAD SOME COUGH LAST NIGHT Vitals Vital Signs Date Time Temp Pulse Resp B/P (MAP) Pulse Ox O2 Delivery O2 Flow Rate FiO2 11/09/18 11:39 94 Room Air 11/09/18 11:16 97.4 76 18 134/62 (86) 97.4 General: Alert, No acute distress Lungs: Other (less rhonchi) Cardiovascular: S1, S2 Abdomen: Soft, Non-tender Neuro Exam: Alert Extremities: No Edema Skin: Warm Labs Laboratory Tests Test 11/07/18 16:56 11/07/18 20:57 11/08/18 03:35 11/08/18 06:54 Glucose (Fingerstick) 287 mg/dL (70-99) 230 mg/dL (70-99) 223 mg/dL (70-99) White Blood Count 13.0 x10^3/uL (4.0-11.0) Red Blood Count 2.89 x10^6/uL (3.50-5.40) Hemoglobin 10.0 g/dL (12.0-15.5) Hematocrit 28.6 % (36.0-47.0) Mean Corpuscular Volume 99 fL (79-100) Mean Corpuscular Hemoglobin 35 pg (25-35) Mean Corpuscular Hemoglobin Concent 35 g/dL (31-37) Red Cell Distribution Width 15.3 % (11.5-14.5) Platelet Count 101 x10^3/uL (140-400) Sodium Level 137 mmol/L (136-145) Potassium Level 5.4 mmol/L (3.5-5.1) Chloride Level 99 mmol/L (98-107) Carbon Dioxide Level 27 mmol/L (21-32) Anion Gap 11 (6-14) Blood Urea Nitrogen 77 mg/dL (7-20) Creatinine 6.6 mg/dL (0.6-1.0) Estimated GFR (Cockcroft-Gault) 6.2 Glucose Level 257 mg/dL (70-99) Calcium Level 8.2 mg/dL (8.5-10.1) Random Vancomycin Level 22.6 mcg/mL Test 11/08/18 11:12 11/08/18 17:58 11/08/18 20:24 11/09/18 08:02 Glucose (Fingerstick) 328 mg/dL (70-99) 87 mg/dL (70-99) 167 mg/dL (70-99) 19 mg/dL (70-99) Test 11/09/18 08:25 Glucose (Fingerstick) 150 mg/dL (70-99) Laboratory Tests Test 11/08/18 17:58 11/08/18 20:24 11/09/18 08:02 11/09/18 08:25 Glucose (Fingerstick) 87 mg/dL (70-99) 167 mg/dL (70-99) 19 mg/dL (70-99) 150 mg/dL (70-99) Medications Active Scripts Medications Dose Route/Sig Max Daily Dose Days Date Category Proair Respiclick (Albuterol Sulfate) 90 Mcg Aer.pow.ba 1 Puff IH PRN Q6HRS PRN 04/10/18 Rx Culturelle (Lactobacillus Rhamnosus Gg) 1 Each Cap.sprink 1 Cap PO BID 30 12/15/17 Rx Combivent Respimat Inhal (Ipratropium/Albuterol Sulfate) 4 Gm Aer.w.adap 2 Inh IH QID 30 09/02/17 Rx Labetalol Hcl 200 Mg Tablet 1 Tab PO DAILY 30 09/02/17 Rx Omeprazole 40 Mg Capsule.dr 40 Mg PO DAILY 09/01/17 Reported Hydrocodone-Apap 5-325 (Hydrocodone Bit/Acetaminophen) 1 Each Tablet 1 Tab PO Q6HRS PRN 09/01/17 Reported Hydralazine Hcl 50 Mg Tablet 1 Tab PO TID 04/08/17 Reported Gabapentin (Gabapentin) 100 Mg Capsule 200 Mg PO BID 04/08/17 Reported Cetirizine Hcl 10 Mg Tablet 1 Tab PO DAILY 10/29/16 Reported Tylenol (Acetaminophen) 325 Mg Tablet 2 Tab PO PRN Q6HRS PRN 10/29/16 Reported Clonidine Hcl 0.1 Mg Tablet 0.1 Mg PO BID 09/17/16 Reported Alendronate Sodium 70 Mg Tablet 70 Mg PO Q2WKS 09/17/16 Reported Flonase Allergy Relief (Fluticasone Propionate) 9.9 Ml [place].susp 2 Sprays NS DAILY 09/17/16 Reported Children's Aspirin (Aspirin) 81 Mg Tab.chew 81 Mg PO DAILYWBKFT 30 11/04/15 Rx Calcium 600 + Vit D 400 Caplet (Calcium Carbonate/Vitamin D3) 1 Each Tablet 1 Each PO DAILY 10/24/15 Reported Renvela (Sevelamer Carbonate) 800 Mg Tablet 2 Tab PO [id number] 12/21/14 Reported Norvasc (Amlodipine Besylate) 10 Mg Tablet 10 Mg PO DAILY 11/11/13 Reported Windy-Abby Rx Tablet (Vit B Cmplx 3/Fa/Vit C/Biotin) 1 Each Tablet 1 Each PO DAILY 11/11/13 Reported Impression . 1. Acute hypoxic respiratory failure secondary to likely interstitial pneumonia. She has a cough with yellow sputum production and had a fever of 102 at home I suspect gram-negative pneumonia. 2. End-stage renal disease, on hemodialysis. 3. No history of tobacco use. 4. Mild leukocytosis present on admission. 5. Influenza screen negative. Plan . 1. broad-spectrum antibiotics, vancomycin and Zosyn. de-escalate tomorrow/ May go home on PO Augmentin in am 2. Steroid taper. /PO 3. Bronchodilators. 4. Hemodialysis per Renal. 5. Clinically not in CHF. 6. We will follow the response to antibiotics. D/W DR MATIAS, LIKELY DC TUESDAY YONG WAGNER MD Nov 09, 2018 11:58
[2018-11-09] MEDS: VANCOMYCIN PER PHARMACY MC PRN (15:02)
[2018-11-09 15:16] VITALS: BP 109/50
[2018-11-09 19:00] VITALS: BP 127/74
[2018-11-09] MEDS ORDERED: ONDANSETRON PF 4 MG/2 ML VIAL. IV PRN (19:30)
[2018-11-09] MEDS: guaiFENesin/CODEINE 100mg/10mg 5 ML LIQUID PO PRN (21:35)
[2018-11-09] MEDS: INSULIN GLARGINE 300 UNITS/3 ML INSULN.PEN. SQ SCH (21:43)
[2018-11-09 22:42] VITALS: BP 104/53
[2018-11-10 02:48] VITALS: BP 157/61
[2018-11-10] MEDS: PIPERACILLIN/TAZOBACTAM 2.25 GM in IV NORMAL SALINE 50ML 50 ML IV SCH ×3 (06:13→21:45)
[2018-11-10] MEDS: SEVELAMER CARBONATE 800 MG TABLET. PO SCH ×3 (06:14→17:23)
[2018-11-10 07:42] VITALS: BP 126/63
[2018-11-10] MEDS: IPRATRPIUM/ALBUTEROL 0.5/2.5MG 3 ML NEBU. NEB SCH ×5 (07:56→20:22)
[2018-11-10] MEDS: INSULIN LISPRO 300 UNITS/3 ML INSULN.PEN. SQ SCH ×3 (08:00→17:00)
[2018-11-10 08:36] LABS: HEMATOCRIT 29.5 % (36.0-47.0); HEMOGLOBIN 9.6 g/dL (12.0-15.5); RED BLOOD COUNT 2.97 x10^6/uL (3.50-5.40); RED CELL DISTRIBUTION WIDTH 15.6 % (11.5-14.5); WHITE BLOOD COUNT 7.8 x10^3/uL (4.0-11.0)
--- NOTE | 2018-11-10 08:53 | PDOC ---
PROGRESS NOTES Subjective Subjective Patient slept well after one dose of cough syrup last night. Feels ready to go home today after dialysis. Objective Objective Vital Signs Date Time Temp Pulse Resp B/P (MAP) Pulse Ox O2 Delivery O2 Flow Rate FiO2 11/10/18 07:57 Room Air 11/10/18 07:42 98.2 83 18 126/63 (84) 94 98.2 11/07/18 20:26 1.0 Intake and Output 11/10/18 07:01 Intake Total 580 ml Balance 580 ml Intake Oral 580 ml # Voids 1 Physical Exam Abdomen: Normal bowel sounds, Soft, No tenderness Heart: Regular rate Extremities: No edema General: Alert, Oriented X3, No acute distress Lungs: Other (scant fine crackles in bases, otherwise CTA) Assessment Assessment Problems Medical Problems: (1) Hypoxia Status: Acute Plan Plan of Care 1. Acute respiratory failure with atypical pneumonia - much improved, hypoxia resolved. Home today on Augmentin and Prednisone taper. 2. ESRD - stable, continue dialysis as scheduled. 3. DM2 - controlled, home on her usual insulin. 4. HTN - controlled, continue home medications. 5. debility - patient is at baseline mobility and family is able to care for her at home. Comment Review of Relevant I have reviewed the following items cosmo (where applicable) has been applied. Labs Laboratory Tests Test 11/08/18 11:12 11/08/18 17:58 11/08/18 20:24 11/09/18 08:02 Glucose (Fingerstick) 328 mg/dL (70-99) 87 mg/dL (70-99) 167 mg/dL (70-99) 19 mg/dL (70-99) Test 11/09/18 08:25 11/09/18 12:12 11/09/18 16:43 11/09/18 20:12 Glucose (Fingerstick) 150 mg/dL (70-99) 101 mg/dL (70-99) 140 mg/dL (70-99) 133 mg/dL (70-99) Test 11/10/18 06:08 11/10/18 07:32 11/10/18 07:40 Glucose (Fingerstick) 131 mg/dL (70-99) 106 mg/dL (70-99) White Blood Count 7.8 x10^3/uL (4.0-11.0) Red Blood Count 2.97 x10^6/uL (3.50-5.40) Hemoglobin 9.6 g/dL (12.0-15.5) Hematocrit 29.5 % (36.0-47.0) Mean Corpuscular Volume 99 fL (79-100) Mean Corpuscular Hemoglobin 32 pg (25-35) Mean Corpuscular Hemoglobin Concent 33 g/dL (31-37) Red Cell Distribution Width 15.6 % (11.5-14.5) Platelet Count 124 x10^3/uL (140-400) Laboratory Tests Test 11/09/18 12:12 11/09/18 16:43 11/09/18 20:12 11/10/18 06:08 Glucose (Fingerstick) 101 mg/dL (70-99) 140 mg/dL (70-99) 133 mg/dL (70-99) 131 mg/dL (70-99) Test 11/10/18 07:32 11/10/18 07:40 Glucose (Fingerstick) 106 mg/dL (70-99) White Blood Count 7.8 x10^3/uL (4.0-11.0) Red Blood Count 2.97 x10^6/uL (3.50-5.40) Hemoglobin 9.6 g/dL (12.0-15.5) Hematocrit 29.5 % (36.0-47.0) Mean Corpuscular Volume 99 fL (79-100) Mean Corpuscular Hemoglobin 32 pg (25-35) Mean Corpuscular Hemoglobin Concent 33 g/dL (31-37) Red Cell Distribution Width 15.6 % (11.5-14.5) Platelet Count 124 x10^3/uL (140-400) Medications Current Medications Albuterol/ Ipratropium (Duoneb) 3 ml 1X ONCE NEB Last administered on at 11:39; Start 11/05/18 at 11:15; Stop 11/05/18 at 11:16; Status DC Ondansetron HCl (Zofran) 4 mg PRN Q8HRS PRN IV NAUSEA/VOMITING; Start 11/05/18 at 13:15; Stop 11/06/18 at 13:14; Status DC Acetaminophen (Tylenol) 650 mg PRN Q4HRS PRN PO FEVER; Start 11/05/18 at 13:15 ; Stop 11/05/18 at 17:16; Status DC Acetaminophen (Tylenol) 650 mg PRN Q6HRS PRN PO MILD PAIN; Start 11/05/18 at 17 :15 Amlodipine Besylate (Norvasc) 10 mg DAILY PO Last administered on 11/09/18 11: 01; Start 11/06/18 at 09:00 Aspirin (Children'S Aspirin) 81 mg DAILYWBKFT PO Last administered on 11:02; Start 11/06/18 at 08:00 Cetirizine HCl (ZyrTEC) 10 mg DAILY PO Last administered on 11/09/18 11:02; Start 11/06/18 at 09:00 Clonidine HCl (Catapres) 0.1 mg BID PO Last administered on 11/09/18 21:36; Start 11/05/18 at 21:00 Gabapentin (Neurontin) 200 mg BID PO Last administered on 11/09/18 21:35; Start 11/05/18 at 21:00 Acetaminophen/ Hydrocodone Bitart (Lortab 5/325) 1 tab PRN Q6HRS PRN PO MODERATE TO SEVERE PAIN Last administered on 11/09/18 11:11; Start 11/05/18 at 17:15 Insulin Glargine (Lantus) 25 units QHS SQ ; Start 11/05/18 at 21:00; Stop at 21:00; Status DC Insulin Human Lispro (HumaLOG) TIDWMEALS SQ ; Start 11/06/18 at 08:00; Status UNV Sevelamer Carbonate (Renvela) 1,600 mg [id number] PO Last administered on 06:14; Start 11/05/18 at 18:00 Albuterol Sulfate (Ventolin Neb Soln) 2.5 mg PRN Q6HRS PRN NEB SHORTNESS OF BREATH; Start 11/05/18 at 17:30 Non-Formulary Medication (Alendronate Sodium ) 70 mg Q2WKS PO ; Start 11/19/18 at 09:00; Status UNV Calcium/Vitamin D (Oscal D 500mg/ 200uts) 1 tab DAILY PO Last administered on 1 /24/19at 11:02; Start 11/06/18 at 09:00 Fluticasone Propionate (Flonase) 2 spray DAILY NS Last administered on at 11:00; Start 11/06/18 at 09:00 Hydralazine HCl (Apresoline) 50 mg TID PO Last administered on 11/09/18at 21:35 ; Start 11/05/18 at 21:00 Albuterol/ Ipratropium (Duoneb) 3 ml RTQID NEB Last administered on 11/10/18at 07:56; Start 11/05/18 at 20:00 Labetalol HCl (Trandate) 200 mg DAILY PO Last administered on 11/09/18at 11:01; Start 11/06/18 at 09:00 Pantoprazole Sodium (Protonix) 40 mg DAILYAC PO Last administered on 11/09/18at 11:01; Start 11/06/18 at 07:30 Promethazine HCl/ Codeine (Phenergan With Codeine Oral Syrup) 5 ml PRN Q6HRS PRN PO COUGH; Start 11/05/18 at 17:30; Stop 11/09/18 at 12:53; Status DC Vitamin B Complex/ Vitamin C (Windy-Abby) 1 tab DAILY PO Last administered on at 11:00; Start 11/06/18 at 09:00 Insulin Human Lispro (HumaLOG) 0-5 UNITS TIDWMEALS SQ ; Start 11/06/18 at 08:00 ; Stop 11/06/18 at 08:36; Status DC Dextrose (Dextrose 50%-Water Syringe) 12.5 gm PRN Q15MIN PRN IV SEE COMMENTS Last administered on 11/09/18at 08:12; Start 11/05/18 at 19:30 Insulin Glargine (Lantus) 7 units QHS SQ Last administered on 11/06/18at 21:07; Start 11/05/18 at 21:00; Stop 11/07/18 at 08:50; Status DC Albuterol/ Ipratropium (Duoneb) 3 ml RTQID NEB ; Start 11/06/18 at 08:30; Stop 11/06/18 at 08:30; Status DC Methylprednisolone Sodium Succinate (SOLU-Medrol 125MG VIAL) 60 mg Q8HRS IV Last administered on 11/07/18at 05:58; Start 11/06/18 at 09:00; Stop 11/07/18 at 10:50; Status DC Insulin Human Lispro (HumaLOG) 0-9 UNITS TIDWMEALS SQ Last administered on 11/08at 12:09; Start 11/06/18 at 08:45 Dextrose (Dextrose 50%-Water Syringe) 12.5 gm PRN Q15MIN PRN IV SEE COMMENTS; Start 11/06/18 at 08:45; Status UNV Sodium Chloride 1,000 ml @ 1,000 mls/hr Q1H PRN IV hypotension; Start 11/06/18 at 09:59; Stop 11/06/18 at 15:58; Status DC Sodium Chloride 1,000 ml @ 400 mls/hr Q2H30M PRN IV PATENCY; Start 11/06/18 at 09:59; Stop 11/06/18 at 21:58; Status DC Info (PHARMACY MONITORING -- do not chart) 1 each PRN DAILY PRN MC SEE COMMENTS ; Start 11/06/18 at 10:00; Status UNV Info (PHARMACY MONITORING -- do not chart) 1 each PRN DAILY PRN MC SEE COMMENTS ; Start 11/06/18 at 10:00 Darbepoetin Yeison (Aranesp) 60 mcg WEEKLYHS SQ ; Start 11/06/18 at 21:00; Status UNV Darbepoetin Yeison (Aranesp) 60 mcg WEEKLYHS SQ Last administered on 11/06/18at 21 :00; Start 11/06/18 at 21:00 Piperacillin Sod/ Tazobactam Sod (Zosyn Per Pharmacy) 1 each PRN DAILY PRN MC SEE COMMENTS; Start 11/06/18 at 14:30 Vancomycin HCl (Vanco Per Pharmacy) 1 each PRN DAILY PRN MC SEE COMMENTS Last administered on 11/09/18at 15:02; Start 11/06/18 at 14:30 Piperacillin Sod/ Tazobactam Sod 2.25 gm/Sodium Chloride 50 ml @ 100 mls/hr Q8HRS IV Last administered on 11/10/18at 06:13; Start 11/06/18 at 15:00 Vancomycin HCl 1.5 gm/Sodium Chloride 500 ml @ 250 mls/hr 1X ONCE IV Last administered on 11/06/18at 16:00; Start 11/06/18 at 16:00; Stop 11/06/18 at 17:59 ; Status DC Vancomycin HCl (Vancomycin Random Level) 1 each 1X ONCE MC Last administered on 11/08/18at 03:35; Start 11/08/18 at 06:00; Stop 11/08/18 at 06:01; Status DC Insulin Glargine (Lantus) 20 units QHS SQ Last administered on 11/07/18at 22:36 ; Start 11/07/18 at 21:00; Stop 11/08/18 at 09:19; Status DC Methylprednisolone Sodium Succinate (SOLU-Medrol 40MG VIAL) 30 mg Q8HRS IV Last administered on 11/08/18at 06:14; Start 11/07/18 at 14:00; Stop 11/08/18 at 13:48; Status DC Lactobacillus Rhamnosus (Culturelle) 1 cap BID PO Last administered on at 21:35; Start 11/07/18 at 21:00 Insulin Glargine (Lantus) 30 units QHS SQ Last administered on 11/08/18at 21:23 ; Start 11/08/18 at 21:00; Stop 11/09/18 at 08:39; Status DC Insulin Human Lispro (HumaLOG) 8 units TIDAC SQ Last administered on 11/08/18at 12:08; Start 11/08/18 at 11:30; Stop 11/09/18 at 08:39; Status DC Vancomycin HCl 500 mg/Sodium Chloride 100 ml @ 100 mls/hr QMWF IV ; Start 11/10 at 16:00 Prednisone (Prednisone) 20 mg DAILY PO Last administered on 11/09/18at 11:01; Start 11/09/18 at 09:00 Sodium Chloride 1,000 ml @ 400 mls/hr Q2H30M PRN IV PATENCY; Start 11/08/18 at 12:00; Stop 11/08/18 at 23:59; Status DC Info (PHARMACY MONITORING -- do not chart) 1 each PRN DAILY PRN MC SEE COMMENTS ; Start 11/08/18 at 16:00; Status UNV Info (PHARMACY MONITORING -- do not chart) 1 each PRN DAILY PRN MC SEE COMMENTS ; Start 11/08/18 at 16:00; Status Cancel Insulin Glargine (Lantus) 10 units QHS SQ Last administered on 11/09/18at 21:43 ; Start 11/09/18 at 21:00 Guaifenesin/ Codeine Phosphate (Robitussin Ac) 5 ml PRN Q6HRS PRN PO COUGH Last administered on 11/09/18at 21:35; Start 11/09/18 at 13:00 Ondansetron HCl (Zofran) 4 mg PRN Q6HRS PRN IV NAUSEA/VOMITING Last administered on 11/09/18at 19:51; Start 11/09/18 at 19:30 Active Scripts Active Proair Respiclick (Albuterol Sulfate) 90 Mcg Aer.pow.ba 1 Puff IH PRN Q6HRS PRN Culturelle (Lactobacillus Rhamnosus Gg) 1 Each Cap.sprink 1 Cap PO BID 30 Days Combivent Respimat Inhal (Ipratropium/Albuterol Sulfate) 4 Gm Aer.w.adap 2 Inh IH QID 30 Days Labetalol Hcl 200 Mg Tablet 1 Tab PO DAILY 30 Days Children's Aspirin (Aspirin) 81 Mg Tab.chew 81 Mg PO DAILYWBKFT 30 Days Reported Omeprazole 40 Mg Capsule.dr 40 Mg PO DAILY Hydrocodone-Apap 5-325 (Hydrocodone Bit/Acetaminophen) 1 Each Tablet 1 Tab PO Q6HRS PRN Hydralazine Hcl 50 Mg Tablet 1 Tab PO TID Gabapentin (Gabapentin) 100 Mg Capsule 200 Mg PO BID Cetirizine Hcl 10 Mg Tablet 1 Tab PO DAILY Tylenol (Acetaminophen) 325 Mg Tablet 2 Tab PO PRN Q6HRS PRN Clonidine Hcl 0.1 Mg Tablet 0.1 Mg PO BID Alendronate Sodium 70 Mg Tablet 70 Mg PO Q2WKS Flonase Allergy Relief (Fluticasone Propionate) 9.9 Ml Isabella.susp 2 Sprays NS DAILY Calcium 600 + Vit D 400 Caplet (Calcium Carbonate/Vitamin D3) 1 Each Tablet 1 Each PO DAILY Renvela (Sevelamer Carbonate) 800 Mg Tablet 2 Tab PO [id number] Norvasc (Amlodipine Besylate) 10 Mg Tablet 10 Mg PO DAILY Windy-Abby Rx Tablet (Vit B Cmplx 3/Fa/Vit C/Biotin) 1 Each Tablet 1 Each PO DAILY Vitals/I & O Vital Sign - Last 24 Hours 11/09/18 11/09/18 11/09/18 11/09/18 09:14 11:01 11:01 11:02 Pulse 78 78 78 B/P (MAP) 174/68 174/68 174/68 Pulse Ox 94 O2 Delivery Room Air 11/09/18 11/09/18 11/09/18 11/09/18 11:02 11:16 11:39 15:01 Temp 97.4 97.4 Pulse 78 76 76 Resp 18 B/P (MAP) 174/68 134/62 (86) 134/62 Pulse Ox 94 94 O2 Delivery Room Air Room Air 11/09/18 11/09/18 11/09/18 11/09/18 15:16 15:42 19:00 20:00 Temp 98.2 98.1 98.2 98.1 Pulse 66 74 Resp 18 17 B/P (MAP) 109/50 (69) 127/74 (91) Pulse Ox 94 94 O2 Delivery Room Air Room Air Room Air Room Air 11/09/18 11/09/18 11/09/18 11/09/18 20:27 21:35 21:36 22:42 Temp 97.7 97.7 Pulse 74 74 70 Resp 18 B/P (MAP) 127/74 127/74 104/53 (70) Pulse Ox 94 93 O2 Delivery Room Air Room Air 11/10/18 11/10/18 11/10/18 02:48 07:42 07:57 Temp 97.2 98.2 97.2 98.2 Pulse 58 83 Resp 15 18 B/P (MAP) 157/61 (93) 126/63 (84) Pulse Ox 93 94 O2 Delivery Room Air Room Air Room Air Intake and Output 11/09/18 11/09/18 11/10/18 15:01 23:01 07:01 Intake Total 100 ml 180 ml 300 ml Balance 100 ml 180 ml 300 ml ARELI MATIAS MD Nov 10, 2018 08:53
[2018-11-10 08:56] LABS: CALCIUM 7.9 mg/dL (8.5-10.1); CREATININE 5.7 mg/dL (0.6-1.0); GFR 7.4; POTASSIUM 4.2 mmol/L (3.5-5.1)
[2018-11-10] MEDS: FLUTICASONE 50MCG/NASAL SPRAY 16GM BOTTLE. NS SCH (09:00)
[2018-11-10] MEDS: LACTOBACILLUS RHAMNOSUS GG 1 CAPSULE. PO SCH ×2 (09:00→21:39)
[2018-11-10] MEDS: GABAPENTIN 100 MG CAPSULE. PO SCH ×2 (09:00→21:40)
[2018-11-10] MEDS: cloNIDine HCL 0.1 MG TABLET PO SCH ×2 (09:00→21:39)
[2018-11-10] MEDS ORDERED: guaiFENesin/CODEINE 100mg/10mg PO (09:01)
[2018-11-10] MEDS ORDERED: PRED-220 PO (09:01)
[2018-11-10] MEDS ORDERED: AMOX1TAB61 PO (09:01)
--- NOTE | 2018-11-10 10:05 | DS ---
DATE OF DISCHARGE: 11/12/2018 CHIEF COMPLAINT: Shortness of breath. HISTORY OF PRESENT ILLNESS: The patient is a 68-year-old female who was recently hospitalized at [facility] for treatment of acute respiratory failure with atypical pneumonia. She had been discharged home on Augmentin and a prednisone taper earlier this month. The patient reported that she had completed these as prescribed and her breathing seemed fairly good to her. However, in the day or 2 prior to this admission, she had noticed increasing shortness of breath. She also experienced some wheezing. Family member called the paramedics and the patient was brought to the Emergency Room. Evaluation there showed her to be hypoxic on room air. Treatment was started and she was admitted for further care. HOSPITAL COURSE: The patient was admitted and seen in consultation by Dr. Avina and Dr. Velasquez. Dr. Avina felt that this was a recurrence of her atypical pneumonia. It was treated with Zosyn and vancomycin. The patient also received Solu-Medrol, oxygen and nebulized breathing treatments. Her shortness of air and cough have slowly improved. She is no longer hypoxic on room air. Her chest exam has also improved. She will be discharged to home today on Augmentin and a longer prednisone taper. The patient's other chronic medical problems including end-stage renal disease, diabetes, and hypertension remained stable. She had some hyperglycemia due to the Solu-Medrol, which was treated with increased insulin, but her blood sugars are back to her baseline at this time. She received dialysis as scheduled. Her blood pressure was good with her usual medication. She was seen by Physical Therapy and is felt to be at her baseline level of mobility, where she is able to transfer herself from bed to chair with only minimal assistance. The patient feels much better and is ready to go home today after dialysis. FINAL DIAGNOSES: 1. Acute respiratory failure with atypical pneumonia. 2. End-stage renal disease. 3. Diabetes mellitus type 2. 4. Hypertension. DISCHARGE MEDICATIONS: Augmentin 875 one p.o. b.i.d. x 7 days, then discontinue; prednisone 10 mg tablet 4 tablets daily for 3 days, then 3 tablets daily for 3 days, then 2 tablets daily for 3 days, then 1 tablet daily for 3 days, then discontinue; guaifenesin with codeine cough syrup 5 mL q. 6 hours p.r.n. cough; albuterol inhaler p.r.n.; alendronate 70 mg every other week; amlodipine 10 mg daily; aspirin 81 mg daily; calcium 600 mg daily; cetirizine 10 mg daily; clonidine 0.1 mg b.i.d.; Flonase spray p.r.n.; gabapentin 200 mg b.i.d.; hydralazine 50 mg t.i.d.; [place] 5/325 p.r.n.; Combivent inhaler 2 puffs q.i.d.; labetalol 200 mg daily; omeprazole 40 mg daily; Renvela 800 mg 2 tablets t.i.d. and renal vitamin daily. FOLLOWUP: Followup is with Dr. Matias as needed. Follow up for dialysis as scheduled. ADDENDUM: Patient did not go home on 11/10/18 as she had one episode of hypoxia on RA late in the day on 11/10. This quickly resolved. An overnight RA oximetry was done to see if patient would qualify for home oxygen (she cannot do a 6 minute walk as she is nonambulatory) and her oxygen saturation remained 93% or better all night. She was discharged home on 11/12/18 without oxygen, all medications remained unchanged. ARELI MATIAS MD DR: EVONNE/nts JOB#: [id number] / [id number] NISHA
[2018-11-10 11:25] VITALS: BP 150/60
--- NOTE | 2018-11-10 11:34 | PDOC ---
Renal-Progress Notes Subjective Notes Notes BETTER History of Present Illness Hx of present illness STABLE Vitals Vitals Vital Signs Date Time Temp Pulse Resp B/P (MAP) Pulse Ox O2 Delivery O2 Flow Rate FiO2 11/10/18 11:25 98.5 84 18 150/60 (90) 92 Room Air 98.5 Weight Weight [ ] I.O. Intake and Output Intake and Output 11/10/18 07:01 Intake Total 580 ml Balance 580 ml Intake Oral 580 ml # Voids 1 Labs Labs Laboratory Tests Test 11/09/18 12:12 11/09/18 16:43 11/09/18 20:12 11/10/18 06:08 Glucose (Fingerstick) 101 mg/dL (70-99) 140 mg/dL (70-99) 133 mg/dL (70-99) 131 mg/dL (70-99) Test 11/10/18 07:32 11/10/18 07:40 Glucose (Fingerstick) 106 mg/dL (70-99) White Blood Count 7.8 x10^3/uL (4.0-11.0) Red Blood Count 2.97 x10^6/uL (3.50-5.40) Hemoglobin 9.6 g/dL (12.0-15.5) Hematocrit 29.5 % (36.0-47.0) Mean Corpuscular Volume 99 fL (79-100) Mean Corpuscular Hemoglobin 32 pg (25-35) Mean Corpuscular Hemoglobin Concent 33 g/dL (31-37) Red Cell Distribution Width 15.6 % (11.5-14.5) Platelet Count 124 x10^3/uL (140-400) Sodium Level 139 mmol/L (136-145) Potassium Level 4.2 mmol/L (3.5-5.1) Chloride Level 100 mmol/L (98-107) Carbon Dioxide Level 29 mmol/L (21-32) Anion Gap 10 (6-14) Blood Urea Nitrogen 59 mg/dL (7-20) Creatinine 5.7 mg/dL (0.6-1.0) Estimated GFR (Cockcroft-Gault) 7.4 Glucose Level 117 mg/dL (70-99) Calcium Level 7.9 mg/dL (8.5-10.1) Review of Systems Constitutional: yes: alert, oriented Ears/Nose/Throat: Yes: no symptom reported Eyes: Yes: no symptom reported Pulmonary: Yes dyspnea Cardiovascular: Yes no symptom reported Gastrointestional: Yes: no symptom reported Genitourinary: Yes: no symptom reported Musculoskeletal: Yes: no symptom reported Skin: Yes no symptom reported Psychiatric/Neurological: Yes: no symptom reported Endocrine: Yes: no symptom reported Physical Exam General Appearance: no apparent distress Skin: warm Respiratory: decreased breath sounds Heart: S1S2 Abdomen: soft, bowel sounds present Genitourinary: bladder flat Extremities: pulses present Neurology: alert, oriented Musculoskeletal: Other Assessment Assessment IMP ESRD ANEMIA PNEUMONIA DM II HTN PLAN HD TODAY UF TO [facility] ANTIBIOTICS/STEROIDS DAKOTA ARIAS MD Nov 10, 2018 11:34
[2018-11-10] MEDS ORDERED: IV NORMAL SALINE 1000ML BAG 1,000 ML IV PRN ×2 (11:53)
[2018-11-10] MEDS ORDERED: DIALYSIS PATIENT. MC PRN (12:00)
--- NOTE | 2018-11-10 13:36 | PDOC ---
PULMONARY PROGRESS NOTES Subjective improving cough Vitals Vital Signs Date Time Temp Pulse Resp B/P (MAP) Pulse Ox O2 Delivery O2 Flow Rate FiO2 11/10/18 12:01 93 Room Air 11/10/18 11:25 98.5 84 18 150/60 (90) 98.5 General: Alert, No acute distress Lungs: Other (less rhonchi) Cardiovascular: S1, S2 Abdomen: Soft, Non-tender Neuro Exam: Alert Extremities: No Edema Skin: Warm Labs Laboratory Tests Test 11/08/18 17:58 11/08/18 20:24 11/09/18 08:02 11/09/18 08:25 Glucose (Fingerstick) 87 mg/dL (70-99) 167 mg/dL (70-99) 19 mg/dL (70-99) 150 mg/dL (70-99) Test 11/09/18 12:12 11/09/18 16:43 11/09/18 20:12 11/10/18 06:08 Glucose (Fingerstick) 101 mg/dL (70-99) 140 mg/dL (70-99) 133 mg/dL (70-99) 131 mg/dL (70-99) Test 11/10/18 07:32 11/10/18 07:40 11/10/18 11:48 Glucose (Fingerstick) 106 mg/dL (70-99) 82 mg/dL (70-99) White Blood Count 7.8 x10^3/uL (4.0-11.0) Red Blood Count 2.97 x10^6/uL (3.50-5.40) Hemoglobin 9.6 g/dL (12.0-15.5) Hematocrit 29.5 % (36.0-47.0) Mean Corpuscular Volume 99 fL (79-100) Mean Corpuscular Hemoglobin 32 pg (25-35) Mean Corpuscular Hemoglobin Concent 33 g/dL (31-37) Red Cell Distribution Width 15.6 % (11.5-14.5) Platelet Count 124 x10^3/uL (140-400) Sodium Level 139 mmol/L (136-145) Potassium Level 4.2 mmol/L (3.5-5.1) Chloride Level 100 mmol/L (98-107) Carbon Dioxide Level 29 mmol/L (21-32) Anion Gap 10 (6-14) Blood Urea Nitrogen 59 mg/dL (7-20) Creatinine 5.7 mg/dL (0.6-1.0) Estimated GFR (Cockcroft-Gault) 7.4 Glucose Level 117 mg/dL (70-99) Calcium Level 7.9 mg/dL (8.5-10.1) Laboratory Tests Test 11/09/18 16:43 11/09/18 20:12 11/10/18 06:08 11/10/18 07:32 Glucose (Fingerstick) 140 mg/dL (70-99) 133 mg/dL (70-99) 131 mg/dL (70-99) 106 mg/dL (70-99) Test 11/10/18 07:40 11/10/18 11:48 White Blood Count 7.8 x10^3/uL (4.0-11.0) Red Blood Count 2.97 x10^6/uL (3.50-5.40) Hemoglobin 9.6 g/dL (12.0-15.5) Hematocrit 29.5 % (36.0-47.0) Mean Corpuscular Volume 99 fL (79-100) Mean Corpuscular Hemoglobin 32 pg (25-35) Mean Corpuscular Hemoglobin Concent 33 g/dL (31-37) Red Cell Distribution Width 15.6 % (11.5-14.5) Platelet Count 124 x10^3/uL (140-400) Sodium Level 139 mmol/L (136-145) Potassium Level 4.2 mmol/L (3.5-5.1) Chloride Level 100 mmol/L (98-107) Carbon Dioxide Level 29 mmol/L (21-32) Anion Gap 10 (6-14) Blood Urea Nitrogen 59 mg/dL (7-20) Creatinine 5.7 mg/dL (0.6-1.0) Estimated GFR (Cockcroft-Gault) 7.4 Glucose Level 117 mg/dL (70-99) Calcium Level 7.9 mg/dL (8.5-10.1) Glucose (Fingerstick) 82 mg/dL (70-99) Medications Active Scripts Medications Dose Route/Sig Max Daily Dose Days Date Category Proair Respiclick (Albuterol Sulfate) 90 Mcg Aer.pow.ba 1 Puff IH PRN Q6HRS PRN 04/10/18 Rx Culturelle (Lactobacillus Rhamnosus Gg) 1 Each Cap.sprink 1 Cap PO BID 30 12/15/17 Rx Combivent Respimat Inhal (Ipratropium/Albuterol Sulfate) 4 Gm Aer.w.adap 2 Inh IH QID 30 09/02/17 Rx Labetalol Hcl 200 Mg Tablet 1 Tab PO DAILY 30 09/02/17 Rx Omeprazole 40 Mg Capsule.dr 40 Mg PO DAILY 09/01/17 Reported Hydrocodone-Apap 5-325 (Hydrocodone Bit/Acetaminophen) 1 Each Tablet 1 Tab PO Q6HRS PRN 09/01/17 Reported Hydralazine Hcl 50 Mg Tablet 1 Tab PO TID 04/08/17 Reported Gabapentin (Gabapentin) 100 Mg Capsule 200 Mg PO BID 04/08/17 Reported Cetirizine Hcl 10 Mg Tablet 1 Tab PO DAILY 10/29/16 Reported Tylenol (Acetaminophen) 325 Mg Tablet 2 Tab PO PRN Q6HRS PRN 10/29/16 Reported Clonidine Hcl 0.1 Mg Tablet 0.1 Mg PO BID 09/17/16 Reported Alendronate Sodium 70 Mg Tablet 70 Mg PO Q2WKS 09/17/16 Reported Flonase Allergy Relief (Fluticasone Propionate) 9.9 Ml Clarence.susp 2 Sprays NS DAILY 09/17/16 Reported Children's Aspirin (Aspirin) 81 Mg Tab.chew 81 Mg PO DAILYWBKFT 30 11/04/15 Rx Calcium 600 + Vit D 400 Caplet (Calcium Carbonate/Vitamin D3) 1 Each Tablet 1 Each PO DAILY 10/24/15 Reported Renvela (Sevelamer Carbonate) 800 Mg Tablet 2 Tab PO [id number] 12/21/14 Reported Norvasc (Amlodipine Besylate) 10 Mg Tablet 10 Mg PO DAILY 11/11/13 Reported Windy-Abby Rx Tablet (Vit B Cmplx 3/Fa/Vit C/Biotin) 1 Each Tablet 1 Each PO DAILY 11/11/13 Reported Impression . 1. Acute hypoxic respiratory failure secondary to likely interstitial pneumonia. She has a cough with yellow sputum production and had a fever of 102 at home I suspect gram-negative pneumonia. clinically improved 2. End-stage renal disease, on hemodialysis. 3. No history of tobacco use. 4. Mild leukocytosis present on admission. 5. Influenza screen negative. Plan . 1. dc broad-spectrum antibiotics, dc home on PO Augmentin 2. Steroid taper. /PO 3. Bronchodilators. 4. Hemodialysis per Renal. 5. Clinically not in CHF. YONG WAGNER MD Nov 10, 2018 13:36
[2018-11-10] MEDS: VANCOMYCIN PER PHARMACY MC PRN (14:40)
[2018-11-10] MEDS ORDERED: VANCOMYCIN 500 MG in IV NORMAL SALINE 100ML 100 ML IV SCH (16:00)
[2018-11-10] MEDS: ASPIRIN CHEWABLE 81 MG TABLET. PO SCH (17:18)
[2018-11-10] MEDS: FOLIC/VIT B COMP W-C (RENAL) TABLET. PO SCH (17:18)
[2018-11-10] MEDS: CALCIUM CARB/VIT D3 500/200 TABLET. PO SCH (17:19)
[2018-11-10] MEDS: predniSONE 20 MG TABLET PO SCH (17:19)
[2018-11-10] MEDS: CETIRIZINE HCL 10 MG TABLET. PO SCH (17:19)
[2018-11-10] MEDS: LABETALOL HCL 200 MG TABLET PO SCH (17:19)
[2018-11-10 17:20] VITALS: BP 144/56
[2018-11-10] MEDS: PANTOPRAZOLE 40 MG TABLET.DR. PO SCH (17:20)
[2018-11-10] MEDS: amLODIPine BESYLATE 10 MG TABLET PO SCH (17:20)
[2018-11-10 19:30] VITALS: BP 123/45
[2018-11-10] MEDS: INSULIN GLARGINE 300 UNITS/3 ML INSULN.PEN. SQ SCH (21:41)
[2018-11-10] MEDS: guaiFENesin/CODEINE 100mg/10mg 5 ML LIQUID PO PRN (21:43)
--- NOTE | 2018-11-10 21:54 | NUR ---
Patient inquired how much Lantus was ordered at - informed her than 10 units were ordered. Pt stated that she only takes 7 units and requested that only 7 units be administered.
[2018-11-10 23:35] VITALS: BP 150/56
[2018-11-11] VITALS (7 sets, daily range): BP systolic 124–165; BP diastolic 57–99
[2018-11-11] MEDS: PIPERACILLIN/TAZOBACTAM 2.25 GM in IV NORMAL SALINE 50ML 50 ML IV SCH (06:04)
[2018-11-11] MEDS: FLUTICASONE 50MCG/NASAL SPRAY 16GM BOTTLE. NS SCH (08:32)
[2018-11-11] MEDS: SEVELAMER CARBONATE 800 MG TABLET. PO SCH ×3 (08:32→18:42)
[2018-11-11] MEDS: ASPIRIN CHEWABLE 81 MG TABLET. PO SCH (08:33)
[2018-11-11] MEDS: cloNIDine HCL 0.1 MG TABLET PO SCH ×2 (08:33→21:22)
[2018-11-11] MEDS: LACTOBACILLUS RHAMNOSUS GG 1 CAPSULE. PO SCH ×2 (08:33→21:22)
[2018-11-11] MEDS: GABAPENTIN 100 MG CAPSULE. PO SCH ×2 (08:33→21:22)
[2018-11-11] MEDS: LABETALOL HCL 200 MG TABLET PO SCH (08:34)
[2018-11-11] MEDS: PANTOPRAZOLE 40 MG TABLET.DR. PO SCH (08:34)
[2018-11-11] MEDS: FOLIC/VIT B COMP W-C (RENAL) TABLET. PO SCH (08:34)
[2018-11-11] MEDS: CETIRIZINE HCL 10 MG TABLET. PO SCH (08:34)
[2018-11-11] MEDS: predniSONE 20 MG TABLET PO SCH (08:34)
[2018-11-11] MEDS: CALCIUM CARB/VIT D3 500/200 TABLET. PO SCH (08:35)
[2018-11-11] MEDS: amLODIPine BESYLATE 10 MG TABLET PO SCH (08:35)
[2018-11-11] MEDS: INSULIN LISPRO 300 UNITS/3 ML INSULN.PEN. SQ SCH ×3 (08:42→18:46)
[2018-11-11] MEDS: IPRATRPIUM/ALBUTEROL 0.5/2.5MG 3 ML NEBU. NEB SCH ×4 (09:45→20:36)
--- NOTE | 2018-11-11 09:50 | PDOC ---
PULMONARY PROGRESS NOTES Subjective sob better, has cough, nasal congestion Vitals Vital Signs Date Time Temp Pulse Resp B/P (MAP) Pulse Ox O2 Delivery O2 Flow Rate FiO2 11/11/18 09:46 99 Nasal Cannula 1.5 11/11/18 08:35 86 147/64 11/11/18 07:00 98.3 20 98.3 ROS: No Nausea General: Alert, No acute distress HEENT: Other (nc at perrl) Lungs: Crackles Cardiovascular: S1, S2 Abdomen: Soft, Non-tender Neuro Exam: Alert, Oriented Extremities: No Edema Skin: Warm Labs Laboratory Tests Test 11/09/18 12:12 11/09/18 16:43 11/09/18 20:12 11/10/18 06:08 Glucose (Fingerstick) 101 mg/dL (70-99) 140 mg/dL (70-99) 133 mg/dL (70-99) 131 mg/dL (70-99) Test 11/10/18 07:32 11/10/18 07:40 11/10/18 11:48 11/10/18 17:14 Glucose (Fingerstick) 106 mg/dL (70-99) 82 mg/dL (70-99) 129 mg/dL (70-99) White Blood Count 7.8 x10^3/uL (4.0-11.0) Red Blood Count 2.97 x10^6/uL (3.50-5.40) Hemoglobin 9.6 g/dL (12.0-15.5) Hematocrit 29.5 % (36.0-47.0) Mean Corpuscular Volume 99 fL (79-100) Mean Corpuscular Hemoglobin 32 pg (25-35) Mean Corpuscular Hemoglobin Concent 33 g/dL (31-37) Red Cell Distribution Width 15.6 % (11.5-14.5) Platelet Count 124 x10^3/uL (140-400) Sodium Level 139 mmol/L (136-145) Potassium Level 4.2 mmol/L (3.5-5.1) Chloride Level 100 mmol/L (98-107) Carbon Dioxide Level 29 mmol/L (21-32) Anion Gap 10 (6-14) Blood Urea Nitrogen 59 mg/dL (7-20) Creatinine 5.7 mg/dL (0.6-1.0) Estimated GFR (Cockcroft-Gault) 7.4 Glucose Level 117 mg/dL (70-99) Calcium Level 7.9 mg/dL (8.5-10.1) Test 11/10/18 21:14 11/11/18 08:17 Glucose (Fingerstick) 333 mg/dL (70-99) 295 mg/dL (70-99) Laboratory Tests Test 11/10/18 11:48 11/10/18 17:14 11/10/18 21:14 11/11/18 08:17 Glucose (Fingerstick) 82 mg/dL (70-99) 129 mg/dL (70-99) 333 mg/dL (70-99) 295 mg/dL (70-99) Medications Active Scripts Medications Dose Route/Sig Max Daily Dose Days Date Category Proair Respiclick (Albuterol Sulfate) 90 Mcg Aer.pow.ba 1 Puff IH PRN Q6HRS PRN 04/10/18 Rx Culturelle (Lactobacillus Rhamnosus Gg) 1 Each Cap.sprink 1 Cap PO BID 30 12/15/17 Rx Combivent Respimat Inhal (Ipratropium/Albuterol Sulfate) 4 Gm Aer.w.adap 2 Inh IH QID 30 09/02/17 Rx Labetalol Hcl 200 Mg Tablet 1 Tab PO DAILY 30 09/02/17 Rx Omeprazole 40 Mg Capsule.dr 40 Mg PO DAILY 09/01/17 Reported Hydrocodone-Apap 5-325 (Hydrocodone Bit/Acetaminophen) 1 Each Tablet 1 Tab PO Q6HRS PRN 09/01/17 Reported Hydralazine Hcl 50 Mg Tablet 1 Tab PO TID 04/08/17 Reported Gabapentin (Gabapentin) 100 Mg Capsule 200 Mg PO BID 04/08/17 Reported Cetirizine Hcl 10 Mg Tablet 1 Tab PO DAILY 10/29/16 Reported Tylenol (Acetaminophen) 325 Mg Tablet 2 Tab PO PRN Q6HRS PRN 10/29/16 Reported Clonidine Hcl 0.1 Mg Tablet 0.1 Mg PO BID 09/17/16 Reported Alendronate Sodium 70 Mg Tablet 70 Mg PO Q2WKS 09/17/16 Reported Flonase Allergy Relief (Fluticasone Propionate) 9.9 Ml [place].susp 2 Sprays NS DAILY 09/17/16 Reported Children's Aspirin (Aspirin) 81 Mg Tab.chew 81 Mg PO DAILYWBKFT 30 11/04/15 Rx Calcium 600 + Vit D 400 Caplet (Calcium Carbonate/Vitamin D3) 1 Each Tablet 1 Each PO DAILY 10/24/15 Reported Renvela (Sevelamer Carbonate) 800 Mg Tablet 2 Tab PO [id number] 12/21/14 Reported Norvasc (Amlodipine Besylate) 10 Mg Tablet 10 Mg PO DAILY 11/11/13 Reported Windy-Abby Rx Tablet (Vit B Cmplx 3/Fa/Vit C/Biotin) 1 Each Tablet 1 Each PO DAILY 11/11/13 Reported Impression . 1. Acute hypoxic respiratory failure secondary to likely interstitial pneumonia. She has a cough with yellow sputum production and had a fever of 102 at home I suspect gram-negative pneumonia. clinically improved 2. End-stage renal disease, on hemodialysis. 3. No history of tobacco use. 4. Mild leukocytosis present on admission. 5. Influenza screen negative. 6. allergic rhinitis Plan . 1. dc broad-spectrum antibiotics, dc home on PO Augmentin 2. Steroid taper. may change solumedrol to prednisone 40 mg daily w taper by 10 mg q 3d. 3. Bronchodilators. 4. Hemodialysis per Renal. 5. Clinically not in CHF. 6. add flonase. discussed w pt, rt LUIS CIFUENTES MD Nov 11, 2018 09:50
--- NOTE | 2018-11-11 10:23 | PDOC ---
PROGRESS NOTES Subjective Subjective Patient reports feeling some shortness of air last night with coughing, feels OK otherwise. Objective Objective Vital Signs Date Time Temp Pulse Resp B/P (MAP) Pulse Ox O2 Delivery O2 Flow Rate FiO2 11/11/18 09:46 99 Nasal Cannula 1.5 11/11/18 08:35 86 147/64 11/11/18 07:00 98.3 20 98.3 Intake and Output 11/11/18 07:01 Intake Total 800 ml Balance 800 ml Intake Oral 800 ml # Voids 3 Physical Exam Abdomen: Normal bowel sounds, Soft, No tenderness Heart: Regular rate Extremities: No edema General: Alert, Oriented X3, No acute distress Lungs: Other (few fine crackles bilateral bases otherwise CTA) Assessment Assessment Problems Medical Problems: (1) Hypoxia Status: Acute Plan Plan of Care 1. Acute respiratory failure with atypical pneumonia - patient was to be discharged yesterday but had RA O2 sat of 75. This quickly improved with O2 and she is now 95-99% on 1L per NC. Cannot do 6 minute walk to qualify for home oxygen as she is non-ambulatory, so will have to do overnight oximetry on RA tonight. Patient agreeable to staying for this. Continue po steroids and change to po abx, continue nebs and O2. 2. ESRD - stable, had her usual dialysis yesterday. 3. DM2 - fairly well controlled, continue insulins. 4. HTN - controlled, continue present medications. Comment Review of Relevant I have reviewed the following items cosmo (where applicable) has been applied. Labs Laboratory Tests Test 11/09/18 12:12 11/09/18 16:43 11/09/18 20:12 11/10/18 06:08 Glucose (Fingerstick) 101 mg/dL (70-99) 140 mg/dL (70-99) 133 mg/dL (70-99) 131 mg/dL (70-99) Test 11/10/18 07:32 11/10/18 07:40 11/10/18 11:48 11/10/18 17:14 Glucose (Fingerstick) 106 mg/dL (70-99) 82 mg/dL (70-99) 129 mg/dL (70-99) White Blood Count 7.8 x10^3/uL (4.0-11.0) Red Blood Count 2.97 x10^6/uL (3.50-5.40) Hemoglobin 9.6 g/dL (12.0-15.5) Hematocrit 29.5 % (36.0-47.0) Mean Corpuscular Volume 99 fL (79-100) Mean Corpuscular Hemoglobin 32 pg (25-35) Mean Corpuscular Hemoglobin Concent 33 g/dL (31-37) Red Cell Distribution Width 15.6 % (11.5-14.5) Platelet Count 124 x10^3/uL (140-400) Sodium Level 139 mmol/L (136-145) Potassium Level 4.2 mmol/L (3.5-5.1) Chloride Level 100 mmol/L (98-107) Carbon Dioxide Level 29 mmol/L (21-32) Anion Gap 10 (6-14) Blood Urea Nitrogen 59 mg/dL (7-20) Creatinine 5.7 mg/dL (0.6-1.0) Estimated GFR (Cockcroft-Gault) 7.4 Glucose Level 117 mg/dL (70-99) Calcium Level 7.9 mg/dL (8.5-10.1) Test 11/10/18 21:14 11/11/18 08:17 Glucose (Fingerstick) 333 mg/dL (70-99) 295 mg/dL (70-99) Laboratory Tests Test 11/10/18 11:48 11/10/18 17:14 11/10/18 21:14 11/11/18 08:17 Glucose (Fingerstick) 82 mg/dL (70-99) 129 mg/dL (70-99) 333 mg/dL (70-99) 295 mg/dL (70-99) Medications Current Medications Albuterol/ Ipratropium (Duoneb) 3 ml 1X ONCE NEB Last administered on at 11:39; Start 11/05/18 at 11:15; Stop 11/05/18 at 11:16; Status DC Ondansetron HCl (Zofran) 4 mg PRN Q8HRS PRN IV NAUSEA/VOMITING; Start 11/05/18 at 13:15; Stop 11/06/18 at 13:14; Status DC Acetaminophen (Tylenol) 650 mg PRN Q4HRS PRN PO FEVER; Start 11/05/18 at 13:15 ; Stop 11/05/18 at 17:16; Status DC Acetaminophen (Tylenol) 650 mg PRN Q6HRS PRN PO MILD PAIN; Start 11/05/18 at 17 :15 Amlodipine Besylate (Norvasc) 10 mg DAILY PO Last administered on 11/11/18at 08: 35; Start 11/06/18 at 09:00 Aspirin (Children'S Aspirin) 81 mg DAILYWBKFT PO Last administered on at 08:33; Start 11/06/18 at 08:00 Cetirizine HCl (ZyrTEC) 10 mg DAILY PO Last administered on 11/11/18 08:34; Start 11/06/18 at 09:00 Clonidine HCl (Catapres) 0.1 mg BID PO Last administered on 11/11/18 08:33; Start 11/05/18 at 21:00 Gabapentin (Neurontin) 200 mg BID PO Last administered on 11/11/18at 08:33; Start 11/05/18 at 21:00 Acetaminophen/ Hydrocodone Bitart (Lortab 5/325) 1 tab PRN Q6HRS PRN PO MODERATE TO SEVERE PAIN Last administered on 11/09/18at 11:11; Start 11/05/18 at 17:15 Insulin Glargine (Lantus) 25 units QHS SQ ; Start 11/05/18 at 21:00; Stop at 21:00; Status DC Insulin Human Lispro (HumaLOG) TIDWMEALS SQ ; Start 11/06/18 at 08:00; Status UNV Sevelamer Carbonate (Renvela) 1,600 mg [id number] PO Last administered on at 08:32; Start 11/05/18 at 18:00 Albuterol Sulfate (Ventolin Neb Soln) 2.5 mg PRN Q6HRS PRN NEB SHORTNESS OF BREATH; Start 11/05/18 at 17:30 Non-Formulary Medication (Alendronate Sodium ) 70 mg Q2WKS PO ; Start 11/19/18 at 09:00; Status UNV Calcium/Vitamin D (Oscal D 500mg/ 200uts) 1 tab DAILY PO Last administered on at 08:35; Start 11/06/18 at 09:00 Fluticasone Propionate (Flonase) 2 spray DAILY NS Last administered on at 08:32; Start 11/06/18 at 09:00 Hydralazine HCl (Apresoline) 50 mg TID PO Last administered on 11/11/18at 08:34 ; Start 11/05/18 at 21:00 Albuterol/ Ipratropium (Duoneb) 3 ml RTQID NEB Last administered on 11/11/18at 09:45; Start 11/05/18 at 20:00 Labetalol HCl (Trandate) 200 mg DAILY PO Last administered on 11/11/18at 08:34; Start 11/06/18 at 09:00 Pantoprazole Sodium (Protonix) 40 mg DAILYAC PO Last administered on 11/11/18 08:34; Start 11/06/18 at 07:30 Promethazine HCl/ Codeine (Phenergan With Codeine Oral Syrup) 5 ml PRN Q6HRS PRN PO COUGH; Start 11/05/18 at 17:30; Stop 11/09/18 at 12:53; Status DC Vitamin B Complex/ Vitamin C (Windy-Abby) 1 tab DAILY PO Last administered on at 08:34; Start 11/06/18 at 09:00 Insulin Human Lispro (HumaLOG) 0-5 UNITS TIDWMEALS SQ ; Start 11/06/18 at 08:00 ; Stop 11/06/18 at 08:36; Status DC Dextrose (Dextrose 50%-Water Syringe) 12.5 gm PRN Q15MIN PRN IV SEE COMMENTS Last administered on 11/09/18at 08:12; Start 11/05/18 at 19:30 Insulin Glargine (Lantus) 7 units QHS SQ Last administered on 11/06/18at 21:07; Start 11/05/18 at 21:00; Stop 11/07/18 at 08:50; Status DC Albuterol/ Ipratropium (Duoneb) 3 ml RTQID NEB ; Start 11/06/18 at 08:30; Stop 11/06/18 at 08:30; Status DC Methylprednisolone Sodium Succinate (SOLU-Medrol 125MG VIAL) 60 mg Q8HRS IV Last administered on 11/07/18at 05:58; Start 11/06/18 at 09:00; Stop 11/07/18 at 10:50; Status DC Insulin Human Lispro (HumaLOG) 0-9 UNITS TIDWMEALS SQ Last administered on 11/11at 08:42; Start 11/06/18 at 08:45 Dextrose (Dextrose 50%-Water Syringe) 12.5 gm PRN Q15MIN PRN IV SEE COMMENTS; Start 11/06/18 at 08:45; Status UNV Sodium Chloride 1,000 ml @ 1,000 mls/hr Q1H PRN IV hypotension; Start 11/06/18 at 09:59; Stop 11/06/18 at 15:58; Status DC Sodium Chloride 1,000 ml @ 400 mls/hr Q2H30M PRN IV PATENCY; Start 11/06/18 at 09:59; Stop 11/06/18 at 21:58; Status DC Info (PHARMACY MONITORING -- do not chart) 1 each PRN DAILY PRN MC SEE COMMENTS ; Start 11/06/18 at 10:00; Status UNV Info (PHARMACY MONITORING -- do not chart) 1 each PRN DAILY PRN MC SEE COMMENTS ; Start 11/06/18 at 10:00; Stop 11/10/18 at 14:44; Status DC Darbepoetin Yeison (Aranesp) 60 mcg WEEKLYHS SQ ; Start 11/06/18 at 21:00; Status UNV Darbepoetin Yeison (Aranesp) 60 mcg WEEKLYHS SQ Last administered on 11/06/18at 21 :00; Start 11/06/18 at 21:00 Piperacillin Sod/ Tazobactam Sod (Zosyn Per Pharmacy) 1 each PRN DAILY PRN MC SEE COMMENTS; Start 11/06/18 at 14:30 Vancomycin HCl (Vanco Per Pharmacy) 1 each PRN DAILY PRN MC SEE COMMENTS Last administered on 11/10/18at 14:40; Start 11/06/18 at 14:30 Piperacillin Sod/ Tazobactam Sod 2.25 gm/Sodium Chloride 50 ml @ 100 mls/hr Q8HRS IV Last administered on 11/11/18at 06:04; Start 11/06/18 at 15:00; Stop at 10:17; Status DC Vancomycin HCl 1.5 gm/Sodium Chloride 500 ml @ 250 mls/hr 1X ONCE IV Last administered on 11/06/18at 16:00; Start 11/06/18 at 16:00; Stop 11/06/18 at 17:59 ; Status DC Vancomycin HCl (Vancomycin Random Level) 1 each 1X ONCE MC Last administered on 11/08/18at 03:35; Start 11/08/18 at 06:00; Stop 11/08/18 at 06:01; Status DC Insulin Glargine (Lantus) 20 units QHS SQ Last administered on 11/07/18at 22:36 ; Start 11/07/18 at 21:00; Stop 11/08/18 at 09:19; Status DC Methylprednisolone Sodium Succinate (SOLU-Medrol 40MG VIAL) 30 mg Q8HRS IV Last administered on 11/08/18at 06:14; Start 11/07/18 at 14:00; Stop 11/08/18 at 13:48; Status DC Lactobacillus Rhamnosus (Culturelle) 1 cap BID PO Last administered on at 08:33; Start 11/07/18 at 21:00 Insulin Glargine (Lantus) 30 units QHS SQ Last administered on 11/08/18at 21:23 ; Start 11/08/18 at 21:00; Stop 11/09/18 at 08:39; Status DC Insulin Human Lispro (HumaLOG) 8 units TIDAC SQ Last administered on 11/08/18at 12:08; Start 11/08/18 at 11:30; Stop 11/09/18 at 08:39; Status DC Vancomycin HCl 500 mg/Sodium Chloride 100 ml @ 100 mls/hr QMWF IV Last administered on 11/10/18at 17:17; Start 11/10/18 at 16:00; Stop 11/11/18 at 10:17 ; Status DC Prednisone (Prednisone) 20 mg DAILY PO Last administered on 11/11/18at 08:34; Start 11/09/18 at 09:00; Stop 11/11/18 at 10:15 Sodium Chloride 1,000 ml @ 400 mls/hr Q2H30M PRN IV PATENCY; Start 11/08/18 at 12:00; Stop 11/08/18 at 23:59; Status DC Info (PHARMACY MONITORING -- do not chart) 1 each PRN DAILY PRN MC SEE COMMENTS ; Start 11/08/18 at 16:00; Status UNV Info (PHARMACY MONITORING -- do not chart) 1 each PRN DAILY PRN MC SEE COMMENTS ; Start 11/08/18 at 16:00; Status Cancel Insulin Glargine (Lantus) 10 units QHS SQ Last administered on 11/10/18at 21:41 ; Start 11/09/18 at 21:00 Guaifenesin/ Codeine Phosphate (Robitussin Ac) 5 ml PRN Q6HRS PRN PO COUGH Last administered on 11/10/18at 21:43; Start 11/09/18 at 13:00 Ondansetron HCl (Zofran) 4 mg PRN Q6HRS PRN IV NAUSEA/VOMITING Last administered on 11/09/18at 19:51; Start 11/09/18 at 19:30 Sodium Chloride 1,000 ml @ 1,000 mls/hr Q1H PRN IV hypotension; Start 11/10/18 at 11:53; Stop 11/10/18 at 17:52; Status DC Sodium Chloride 1,000 ml @ 400 mls/hr Q2H30M PRN IV PATENCY; Start 11/10/18 at 11:53; Stop 11/10/18 at 23:52; Status DC Info (PHARMACY MONITORING -- do not chart) 1 each PRN DAILY PRN MC SEE COMMENTS ; Start 11/10/18 at 12:00 Fluticasone Propionate (Flonase) 2 spray DAILY NS ; Start 11/12/18 at 09:00; Status UNV Active Scripts Active Prednisone (Prednisone) 10 Mg Tablet 10 Mg PO DAILY 12 Days 4 pills daily for 3 days then 3 pills daily for 3 days then 2 pills daily for 3 days then 1 pill daily for 3 days. Augmentin 875-125 Tablet (Amoxicillin/Potassium Clav) 1 Each Tablet 1 Tab PO BID 7 Days [guaiFENesin/CODEINE 100mg/10mg] 5 ML Liquid 5 Ml PO PRN Q6HRS PRN Proair Respiclick (Albuterol Sulfate) 90 Mcg Aer.pow.ba 1 Puff IH PRN Q6HRS PRN Culturelle (Lactobacillus Rhamnosus Gg) 1 Each Cap.sprink 1 Cap PO BID 30 Days Combivent Respimat Inhal (Ipratropium/Albuterol Sulfate) 4 Gm Aer.w.adap 2 Inh IH QID 30 Days Labetalol Hcl 200 Mg Tablet 1 Tab PO DAILY 30 Days Children's Aspirin (Aspirin) 81 Mg Tab.chew 81 Mg PO DAILYWBKFT 30 Days Reported Omeprazole 40 Mg Capsule.dr 40 Mg PO DAILY Hydrocodone-Apap 5-325 (Hydrocodone Bit/Acetaminophen) 1 Each Tablet 1 Tab PO Q6HRS PRN Hydralazine Hcl 50 Mg Tablet 1 Tab PO TID Gabapentin (Gabapentin) 100 Mg Capsule 200 Mg PO BID Cetirizine Hcl 10 Mg Tablet 1 Tab PO DAILY Tylenol (Acetaminophen) 325 Mg Tablet 2 Tab PO PRN Q6HRS PRN Clonidine Hcl 0.1 Mg Tablet 0.1 Mg PO BID Alendronate Sodium 70 Mg Tablet 70 Mg PO Q2WKS Flonase Allergy Relief (Fluticasone Propionate) 9.9 Ml [place].susp 2 Sprays NS DAILY Calcium 600 + Vit D 400 Caplet (Calcium Carbonate/Vitamin D3) 1 Each Tablet 1 Each PO DAILY Renvela (Sevelamer Carbonate) 800 Mg Tablet 2 Tab PO [id number] Norvasc (Amlodipine Besylate) 10 Mg Tablet 10 Mg PO DAILY Windy-Abby Rx Tablet (Vit B Cmplx 3/Fa/Vit C/Biotin) 1 Each Tablet 1 Each PO DAILY Vitals/I & O Vital Sign - Last 24 Hours 11/10/18 11/10/18 11/10/18 11/10/18 11:25 12:01 17: 17:19 Temp 98.5 98.5 Pulse 84 83 83 Resp 18 B/P (MAP) 150/60 (90) 144/56 144/56 Pulse Ox 92 93 O2 Delivery Room Air Room Air 11/10/18 11/10/18 11/10/18 11/10/18 17:20 17:20 19:30 20:10 Temp 98.6 98.1 98.6 98.1 Pulse 84 83 78 Resp 18 20 B/P (MAP) 144/56 (85) 144/56 123/45 (71) Pulse Ox 92 95 O2 Delivery Room Air Nasal Cannula Nasal Cannula O2 Flow Rate 1.0 1.0 11/10/18 11/10/18 11/10/18 11/10/18 20:24 21:39 21:39 22:03 Pulse 78 78 B/P (MAP) 123/45 123/45 Pulse Ox 75 90 O2 Delivery Room Air Room Air 11/10/18 11/11/18 11/11/18 11/11/18 23:35 03:35 07:00 08:33 Temp 98.3 98.5 98.3 98.3 98.5 98.3 Pulse 79 84 86 86 Resp 20 20 20 B/P (MAP) 150/56 (87) 165/70 (101) 147/64 (91) 147/64 Pulse Ox 93 95 95 O2 Delivery Nasal Cannula Nasal Cannula Nasal Cannula O2 Flow Rate 1.0 1.0 1.0 11/11/18 11/11/18 11/11/18 11/11/18 08:34 08:34 08:35 09:46 Pulse 86 86 86 B/P (MAP) 147/64 147/64 147/64 Pulse Ox 99 O2 Delivery Nasal Cannula O2 Flow Rate 1.5 Intake and Output 11/10/18 11/10/18 11/11/18 15:01 23:01 07:01 Intake Total 300 ml 100 ml 400 ml Balance 300 ml 100 ml 400 ml ARELI MATIAS MD Nov 11, 2018 10:23
[2018-11-11] MEDS: AMOXICILLIN/K CLAV 875/125MG TABLET. PO SCH ×2 (12:28→21:21)
[2018-11-11] MEDS: HYDROcodone/APAP 5/325MG 1 TAB TABLET PO PRN (14:23)
--- NOTE | 2018-11-11 14:54 | PDOC ---
Renal-Progress Notes Subjective Notes Notes WAS TO GO HOME YESTERDAY BUT HAD SOB History of Present Illness Hx of present illness BETTER Vitals Vitals Vital Signs Date Time Temp Pulse Resp B/P (MAP) Pulse Ox O2 Delivery O2 Flow Rate FiO2 11/11/18 14:23 18 Nasal Cannula 1.0 11/11/18 14:21 84 155/57 11/11/18 13:05 97 11/11/18 11:18 98.7 98.7 Weight Weight [ ] I.O. Intake and Output Intake and Output 11/11/18 07:01 Intake Total 800 ml Balance 800 ml Intake Oral 800 ml # Voids 3 Labs Labs Laboratory Tests Test 11/10/18 17:14 11/10/18 21:14 11/11/18 08:17 11/11/18 11:59 Glucose (Fingerstick) 129 mg/dL (70-99) 333 mg/dL (70-99) 295 mg/dL (70-99) 138 mg/dL (70-99) Review of Systems Constitutional: yes: alert, oriented Ears/Nose/Throat: Yes: no symptom reported Eyes: Yes: no symptom reported Pulmonary: Yes dyspnea Cardiovascular: Yes no symptom reported Gastrointestional: Yes: no symptom reported Genitourinary: Yes: no symptom reported Musculoskeletal: Yes: no symptom reported Skin: Yes no symptom reported Psychiatric/Neurological: Yes: no symptom reported Endocrine: Yes: no symptom reported Physical Exam General Appearance: no apparent distress Skin: warm Respiratory: decreased breath sounds Heart: S1S2 Abdomen: soft, bowel sounds present Genitourinary: bladder flat Extremities: pulses present Neurology: alert, oriented Musculoskeletal: Other Assessment Assessment IMP ESRD ANEMIA PNEUMONIA DM II HTN PLAN HD TUESDAY UNLIKELY DUE TO VOLUME - UNABLE TO UF ANY MORE DUE TO HYPOTENSION ARANESP ANTIBIOTICS/STEROIDS DAKOTA ARIAS MD Nov 11, 2018 14:54
[2018-11-11] MEDS: guaiFENesin/CODEINE 100mg/10mg 5 ML LIQUID PO PRN (21:21)
[2018-11-11] MEDS: INSULIN GLARGINE 300 UNITS/3 ML INSULN.PEN. SQ SCH (21:27)
[2018-11-12 03:04] VITALS: BP 135/62
[2018-11-12] MEDS: SEVELAMER CARBONATE 800 MG TABLET. PO SCH ×3 (06:30→17:51)
[2018-11-12] MEDS: PANTOPRAZOLE 40 MG TABLET.DR. PO SCH ×2 (06:32→17:52)
--- NOTE | 2018-11-12 06:53 | NUR ---
Patient was on a continuous pulse ox overnight on room air. The lowest reading was 93%.
[2018-11-12] MEDS: IPRATRPIUM/ALBUTEROL 0.5/2.5MG 3 ML NEBU. NEB SCH ×4 (07:50→21:19)
[2018-11-12 07:58] VITALS: BP 137/62
[2018-11-12] MEDS: INSULIN LISPRO 300 UNITS/3 ML INSULN.PEN. SQ SCH ×3 (08:00→17:59)
[2018-11-12] MEDS ORDERED: FLUTICASONE 50MCG/NASAL SPRAY 16GM BOTTLE. NS SCH (09:00)
[2018-11-12] MEDS ORDERED: predniSONE 20 MG TABLET PO SCH (09:00)
[2018-11-12] MEDS: FLUTICASONE 50MCG/NASAL SPRAY 16GM BOTTLE. NS SCH (09:20)
[2018-11-12] MEDS: GABAPENTIN 100 MG CAPSULE. PO SCH ×2 (09:20→20:32)
[2018-11-12] MEDS: CALCIUM CARB/VIT D3 500/200 TABLET. PO SCH (09:22)
[2018-11-12] MEDS: LABETALOL HCL 200 MG TABLET PO SCH (09:22)
[2018-11-12] MEDS: FOLIC/VIT B COMP W-C (RENAL) TABLET. PO SCH (09:22)
[2018-11-12] MEDS: ASPIRIN CHEWABLE 81 MG TABLET. PO SCH (09:22)
[2018-11-12] MEDS: LACTOBACILLUS RHAMNOSUS GG 1 CAPSULE. PO SCH ×2 (09:23→20:32)
[2018-11-12] MEDS: cloNIDine HCL 0.1 MG TABLET PO SCH ×2 (09:24→20:32)
[2018-11-12] MEDS: AMOXICILLIN/K CLAV 875/125MG TABLET. PO SCH (09:25)
[2018-11-12] MEDS: amLODIPine BESYLATE 10 MG TABLET PO SCH (09:26)
[2018-11-12] MEDS: CETIRIZINE HCL 10 MG TABLET. PO SCH (09:26)
--- NOTE | 2018-11-12 10:12 | PDOC ---
PULMONARY PROGRESS NOTES Subjective sob better, cough better, has stomach pain Vitals Vital Signs Date Time Temp Pulse Resp B/P (MAP) Pulse Ox O2 Delivery O2 Flow Rate FiO2 11/12/18 09:26 68 137/62 11/12/18 08:00 Room Air 11/12/18 07:58 97.3 20 95 97.3 11/11/18 23:24 2.0 ROS: No Nausea, No Chest Pain General: Alert, No acute distress HEENT: Other (nc at perrl) Lungs: Crackles Cardiovascular: S1, S2 Abdomen: Soft, Non-tender Neuro Exam: Alert, Oriented Extremities: No Edema Skin: Warm Labs Laboratory Tests Test 11/10/18 11:48 11/10/18 17:14 11/10/18 21:14 11/11/18 08:17 Glucose (Fingerstick) 82 mg/dL (70-99) 129 mg/dL (70-99) 333 mg/dL (70-99) 295 mg/dL (70-99) Test 11/11/18 11:59 11/11/18 16:48 11/11/18 20:56 11/12/18 08:05 Glucose (Fingerstick) 138 mg/dL (70-99) 297 mg/dL (70-99) 270 mg/dL (70-99) 110 mg/dL (70-99) Laboratory Tests Test 11/11/18 11:59 11/11/18 16:48 11/11/18 20:56 11/12/18 08:05 Glucose (Fingerstick) 138 mg/dL (70-99) 297 mg/dL (70-99) 270 mg/dL (70-99) 110 mg/dL (70-99) Medications Active Scripts Medications Dose Route/Sig Max Daily Dose Days Date Category Proair Respiclick (Albuterol Sulfate) 90 Mcg Aer.pow.ba 1 Puff IH PRN Q6HRS PRN 04/10/18 Rx Culturelle (Lactobacillus Rhamnosus Gg) 1 Each Cap.sprink 1 Cap PO BID 30 12/15/17 Rx Combivent Respimat Inhal (Ipratropium/Albuterol Sulfate) 4 Gm Aer.w.adap 2 Inh IH QID 30 09/02/17 Rx Labetalol Hcl 200 Mg Tablet 1 Tab PO DAILY 30 09/02/17 Rx Omeprazole 40 Mg Capsule.dr 40 Mg PO DAILY 09/01/17 Reported Hydrocodone-Apap 5-325 (Hydrocodone Bit/Acetaminophen) 1 Each Tablet 1 Tab PO Q6HRS PRN 09/01/17 Reported Hydralazine Hcl 50 Mg Tablet 1 Tab PO TID 04/08/17 Reported Gabapentin (Gabapentin) 100 Mg Capsule 200 Mg PO BID 04/08/17 Reported Cetirizine Hcl 10 Mg Tablet 1 Tab PO DAILY 10/29/16 Reported Tylenol (Acetaminophen) 325 Mg Tablet 2 Tab PO PRN Q6HRS PRN 10/29/16 Reported Clonidine Hcl 0.1 Mg Tablet 0.1 Mg PO BID 09/17/16 Reported Alendronate Sodium 70 Mg Tablet 70 Mg PO Q2WKS 09/17/16 Reported Flonase Allergy Relief (Fluticasone Propionate) 9.9 Ml [place].susp 2 Sprays NS DAILY 09/17/16 Reported Children's Aspirin (Aspirin) 81 Mg Tab.chew 81 Mg PO DAILYWBKFT 30 11/04/15 Rx Calcium 600 + Vit D 400 Caplet (Calcium Carbonate/Vitamin D3) 1 Each Tablet 1 Each PO DAILY 10/24/15 Reported Renvela (Sevelamer Carbonate) 800 Mg Tablet 2 Tab PO [id number] 12/21/14 Reported Norvasc (Amlodipine Besylate) 10 Mg Tablet 10 Mg PO DAILY 11/11/13 Reported Windy-Abby Rx Tablet (Vit B Cmplx 3/Fa/Vit C/Biotin) 1 Each Tablet 1 Each PO DAILY 11/11/13 Reported Impression . 1. Acute hypoxic respiratory failure secondary to likely interstitial pneumonia. She has a cough with yellow sputum production and had a fever of 102 at home I suspect gram-negative pneumonia. clinically improved 2. End-stage renal disease, on hemodialysis. 3. No history of tobacco use. 4. Mild leukocytosis present on admission, resolved. 5. Influenza screen negative. 6. allergic rhinitis 7. GERD Plan . 1. dc broad-spectrum antibiotics, dc home on PO Augmentin 2. Steroid taper. may change prednisone to 40 mg daily w taper by 10 mg q 3d. 3. Bronchodilators. 4. Hemodialysis per Renal. 5. Clinically not in CHF. 6. flonase. 7. increase protonix to bid discussed w pt, rt LUIS CIFUENTES MD Nov 12, 2018 10:12
--- NOTE | 2018-11-12 11:26 | PDOC ---
PROGRESS NOTES Subjective Subjective Patient without complaint, wants to go home today. Objective Objective Vital Signs Date Time Temp Pulse Resp B/P (MAP) Pulse Ox O2 Delivery O2 Flow Rate FiO2 11/12/18 09:26 68 137/62 11/12/18 08:00 Room Air 11/12/18 07:58 97.3 20 95 97.3 11/11/18 23:24 2.0 Intake and Output 11/12/18 07:01 Intake Total 990 ml Balance 990 ml Intake Oral 840 ml IV Total 150 ml # Voids 4 Physical Exam Abdomen: Normal bowel sounds, Soft, No tenderness Heart: Regular rate Extremities: No edema General: Alert, Oriented X3, No acute distress Lungs: Other (BS decreased throughout, few fine crackles bilateral bases.) Assessment Assessment Problems Medical Problems: (1) Hypoxia Status: Acute Plan Plan of Care 1. Acute respiratory failure with atypical pneumonia - hypoxia has resolved, sats overnight on RA were not less than 93%. Home on prednisone taper and Augmentin. 2. ESRD - stable, resume her usual outpatient dialysis tomorrow. 3. DM2 - controlled, continue insulins. 4. HTN - controlled, continue present medications. Comment Review of Relevant I have reviewed the following items cosmo (where applicable) has been applied. Labs Laboratory Tests Test 11/10/18 11:48 11/10/18 17:14 11/10/18 21:14 11/11/18 08:17 Glucose (Fingerstick) 82 mg/dL (70-99) 129 mg/dL (70-99) 333 mg/dL (70-99) 295 mg/dL (70-99) Test 11/11/18 11:59 11/11/18 16:48 11/11/18 20:56 11/12/18 08:05 Glucose (Fingerstick) 138 mg/dL (70-99) 297 mg/dL (70-99) 270 mg/dL (70-99) 110 mg/dL (70-99) Laboratory Tests Test 11/11/18 11:59 11/11/18 16:48 11/11/18 20:56 11/12/18 08:05 Glucose (Fingerstick) 138 mg/dL (70-99) 297 mg/dL (70-99) 270 mg/dL (70-99) 110 mg/dL (70-99) Medications Current Medications Albuterol/ Ipratropium (Duoneb) 3 ml 1X ONCE NEB Last administered on at 11:39; Start 11/05/18 at 11:15; Stop 11/05/18 at 11:16; Status DC Ondansetron HCl (Zofran) 4 mg PRN Q8HRS PRN IV NAUSEA/VOMITING; Start 11/05/18 at 13:15; Stop 11/06/18 at 13:14; Status DC Acetaminophen (Tylenol) 650 mg PRN Q4HRS PRN PO FEVER; Start 11/05/18 at 13:15 ; Stop 11/05/18 at 17:16; Status DC Acetaminophen (Tylenol) 650 mg PRN Q6HRS PRN PO MILD PAIN; Start 11/05/18 at 17 :15 Amlodipine Besylate (Norvasc) 10 mg DAILY PO Last administered on 11/12/18 09: 26; Start 11/06/18 at 09:00 Aspirin (Children'S Aspirin) 81 mg DAILYWBKFT PO Last administered on 09:22; Start 11/06/18 at 08:00 Cetirizine HCl (ZyrTEC) 10 mg DAILY PO Last administered on 11/12/18 09:26; Start 11/06/18 at 09:00 Clonidine HCl (Catapres) 0.1 mg BID PO Last administered on 11/12/18 09:24; Start 11/05/18 at 21:00 Gabapentin (Neurontin) 200 mg BID PO Last administered on 11/12/18 09:20; Start 11/05/18 at 21:00 Acetaminophen/ Hydrocodone Bitart (Lortab 5/325) 1 tab PRN Q6HRS PRN PO MODERATE TO SEVERE PAIN Last administered on 11/11/18at 14:23; Start 11/05/18 at 17:15 Insulin Glargine (Lantus) 25 units QHS SQ ; Start 11/05/18 at 21:00; Stop at 21:00; Status DC Insulin Human Lispro (HumaLOG) TIDWMEALS SQ ; Start 11/06/18 at 08:00; Status UNV Sevelamer Carbonate (Renvela) 1,600 mg [id number] PO Last administered on 06:30; Start 11/05/18 at 18:00 Albuterol Sulfate (Ventolin Neb Soln) 2.5 mg PRN Q6HRS PRN NEB SHORTNESS OF BREATH; Start 11/05/18 at 17:30 Non-Formulary Medication (Alendronate Sodium ) 70 mg Q2WKS PO ; Start 11/19/18 at 09:00; Status UNV Calcium/Vitamin D (Oscal D 500mg/ 200uts) 1 tab DAILY PO Last administered on 09:22; Start 11/06/18 at 09:00 Fluticasone Propionate (Flonase) 2 spray DAILY NS Last administered on 09:20; Start 11/06/18 at 09:00 Hydralazine HCl (Apresoline) 50 mg TID PO Last administered on 11/12/18 09:21 ; Start 11/05/18 at 21:00 Albuterol/ Ipratropium (Duoneb) 3 ml RTQID NEB Last administered on 11/11/18at 20:36; Start 11/05/18 at 20:00 Labetalol HCl (Trandate) 200 mg DAILY PO Last administered on 11/12/18 09:22; Start 11/06/18 at 09:00 Pantoprazole Sodium (Protonix) 40 mg DAILYAC PO Last administered on 11/12/18 06:32; Start 11/06/18 at 07:30; Stop 11/12/18 at 10:13; Status DC Promethazine HCl/ Codeine (Phenergan With Codeine Oral Syrup) 5 ml PRN Q6HRS PRN PO COUGH; Start 11/05/18 at 17:30; Stop 11/09/18 at 12:53; Status DC Vitamin B Complex/ Vitamin C ([place]-Abby) 1 tab DAILY PO Last administered on 09:22; Start 11/06/18 at 09:00 Insulin Human Lispro (HumaLOG) 0-5 UNITS TIDWMEALS SQ ; Start 11/06/18 at 08:00 ; Stop 11/06/18 at 08:36; Status DC Dextrose (Dextrose 50%-Water Syringe) 12.5 gm PRN Q15MIN PRN IV SEE COMMENTS Last administered on 1/24/19at 08:12; Start 11/05/18 at 19:30 Insulin Glargine (Lantus) 7 units QHS SQ Last administered on 11/06/18at 21:07; Start 11/05/18 at 21:00; Stop 11/07/18 at 08:50; Status DC Albuterol/ Ipratropium (Duoneb) 3 ml RTQID NEB ; Start 11/06/18 at 08:30; Stop 11/06/18 at 08:30; Status DC Methylprednisolone Sodium Succinate (SOLU-Medrol 125MG VIAL) 60 mg Q8HRS IV Last administered on 11/07/18at 05:58; Start 11/06/18 at 09:00; Stop 11/07/18 at 10:50; Status DC Insulin Human Lispro (HumaLOG) 0-9 UNITS TIDWMEALS SQ Last administered on 11/11at 18:46; Start 11/06/18 at 08:45 Dextrose (Dextrose 50%-Water Syringe) 12.5 gm PRN Q15MIN PRN IV SEE COMMENTS; Start 11/06/18 at 08:45; Status UNV Sodium Chloride 1,000 ml @ 1,000 mls/hr Q1H PRN IV hypotension; Start 11/06/18 at 09:59; Stop 11/06/18 at 15:58; Status DC Sodium Chloride 1,000 ml @ 400 mls/hr Q2H30M PRN IV PATENCY; Start 11/06/18 at 09:59; Stop 11/06/18 at 21:58; Status DC Info (PHARMACY MONITORING -- do not chart) 1 each PRN DAILY PRN MC SEE COMMENTS ; Start 11/06/18 at 10:00; Status UNV Info (PHARMACY MONITORING -- do not chart) 1 each PRN DAILY PRN MC SEE COMMENTS ; Start 11/06/18 at 10:00; Stop 11/10/18 at 14:44; Status DC Darbepoetin Yeison (Aranesp) 60 mcg WEEKLYHS SQ ; Start 11/06/18 at 21:00; Status UNV Darbepoetin Yeison (Aranesp) 60 mcg WEEKLYHS SQ Last administered on 11/06/18at 21 :00; Start 11/06/18 at 21:00 Piperacillin Sod/ Tazobactam Sod (Zosyn Per Pharmacy) 1 each PRN DAILY PRN MC SEE COMMENTS; Start 11/06/18 at 14:30; Stop 11/11/18 at 10:21; Status DC Vancomycin HCl (Vanco Per Pharmacy) 1 each PRN DAILY PRN MC SEE COMMENTS Last administered on 11/10/18at 14:40; Start 11/06/18 at 14:30; Stop 11/11/18 at 10:20 ; Status DC Piperacillin Sod/ Tazobactam Sod 2.25 gm/Sodium Chloride 50 ml @ 100 mls/hr Q8HRS IV Last administered on 11/11/18at 06:04; Start 11/06/18 at 15:00; Stop at 10:17; Status DC Vancomycin HCl 1.5 gm/Sodium Chloride 500 ml @ 250 mls/hr 1X ONCE IV Last administered on 11/06/18at 16:00; Start 11/06/18 at 16:00; Stop 11/06/18 at 17:59 ; Status DC Vancomycin HCl (Vancomycin Random Level) 1 each 1X ONCE MC Last administered on 11/08/18at 03:35; Start 11/08/18 at 06:00; Stop 11/08/18 at 06:01; Status DC Insulin Glargine (Lantus) 20 units QHS SQ Last administered on 11/07/18at 22:36 ; Start 11/07/18 at 21:00; Stop 11/08/18 at 09:19; Status DC Methylprednisolone Sodium Succinate (SOLU-Medrol 40MG VIAL) 30 mg Q8HRS IV Last administered on 11/08/18at 06:14; Start 11/07/18 at 14:00; Stop 11/08/18 at 13:48; Status DC Lactobacillus Rhamnosus (Culturelle) 1 cap BID PO Last administered on at 09:23; Start 11/07/18 at 21:00 Insulin Glargine (Lantus) 30 units QHS SQ Last administered on 11/08/18at 21:23 ; Start 11/08/18 at 21:00; Stop 11/09/18 at 08:39; Status DC Insulin Human Lispro (HumaLOG) 8 units TIDAC SQ Last administered on 11/08/18at 12:08; Start 11/08/18 at 11:30; Stop 11/09/18 at 08:39; Status DC Vancomycin HCl 500 mg/Sodium Chloride 100 ml @ 100 mls/hr QMWF IV Last administered on 11/10/18at 17:17; Start 11/10/18 at 16:00; Stop 11/11/18 at 10:17 ; Status DC Prednisone (Prednisone) 20 mg DAILY PO Last administered on 11/11/18at 08:34; Start 11/09/18 at 09:00; Stop 11/11/18 at 10:17; Status DC Sodium Chloride 1,000 ml @ 400 mls/hr Q2H30M PRN IV PATENCY; Start 11/08/18 at 12:00; Stop 11/08/18 at 23:59; Status DC Info (PHARMACY MONITORING -- do not chart) 1 each PRN DAILY PRN MC SEE COMMENTS ; Start 11/08/18 at 16:00; Status UNV Info (PHARMACY MONITORING -- do not chart) 1 each PRN DAILY PRN MC SEE COMMENTS ; Start 11/08/18 at 16:00; Status Cancel Insulin Glargine (Lantus) 10 units QHS SQ Last administered on 11/11/18at 21:27 ; Start 11/09/18 at 21:00 Guaifenesin/ Codeine Phosphate (Robitussin Ac) 5 ml PRN Q6HRS PRN PO COUGH Last administered on 11/11/18at 21:21; Start 11/09/18 at 13:00 Ondansetron HCl (Zofran) 4 mg PRN Q6HRS PRN IV NAUSEA/VOMITING Last administered on 11/09/18at 19:51; Start 11/09/18 at 19:30 Sodium Chloride 1,000 ml @ 1,000 mls/hr Q1H PRN IV hypotension; Start 11/10/18 at 11:53; Stop 11/10/18 at 17:52; Status DC Sodium Chloride 1,000 ml @ 400 mls/hr Q2H30M PRN IV PATENCY; Start 11/10/18 at 11:53; Stop 11/10/18 at 23:52; Status DC Info (PHARMACY MONITORING -- do not chart) 1 each PRN DAILY PRN MC SEE COMMENTS ; Start 11/10/18 at 12:00 Fluticasone Propionate (Flonase) 2 spray DAILY NS ; Start 11/12/18 at 09:00; Status UNV Prednisone (Prednisone) 60 mg DAILY PO Last administered on 11/12/18at 09:21; Start 11/12/18 at 09:00 Amoxicillin/ Clavulanate Potassium (Augmentin 875/ 125mg) 1 tab BID PO Last administered on 11/12/18at 09:25; Start 11/11/18 at 10:30 Pantoprazole Sodium (Protonix) 40 mg BIDAC PO ; Start 11/12/18 at 16:30 Active Scripts Active Prednisone (Prednisone) 10 Mg Tablet 10 Mg PO DAILY 12 Days 4 pills daily for 3 days then 3 pills daily for 3 days then 2 pills daily for 3 days then 1 pill daily for 3 days. Augmentin 875-125 Tablet (Amoxicillin/Potassium Clav) 1 Each Tablet 1 Tab PO BID 7 Days [guaiFENesin/CODEINE 100mg/10mg] 5 ML Liquid 5 Ml PO PRN Q6HRS PRN Proair Respiclick (Albuterol Sulfate) 90 Mcg Aer.pow.ba 1 Puff IH PRN Q6HRS PRN Culturelle (Lactobacillus Rhamnosus Gg) 1 Each Cap.sprink 1 Cap PO BID 30 Days Combivent Respimat Inhal (Ipratropium/Albuterol Sulfate) 4 Gm Aer.w.adap 2 Inh IH QID 30 Days Labetalol Hcl 200 Mg Tablet 1 Tab PO DAILY 30 Days Children's Aspirin (Aspirin) 81 Mg Tab.chew 81 Mg PO DAILYWBKFT 30 Days Reported Omeprazole 40 Mg Capsule.dr 40 Mg PO DAILY Hydrocodone-Apap 5-325 (Hydrocodone Bit/Acetaminophen) 1 Each Tablet 1 Tab PO Q6HRS PRN Hydralazine Hcl 50 Mg Tablet 1 Tab PO TID Gabapentin (Gabapentin) 100 Mg Capsule 200 Mg PO BID Cetirizine Hcl 10 Mg Tablet 1 Tab PO DAILY Tylenol (Acetaminophen) 325 Mg Tablet 2 Tab PO PRN Q6HRS PRN Clonidine Hcl 0.1 Mg Tablet 0.1 Mg PO BID Alendronate Sodium 70 Mg Tablet 70 Mg PO Q2WKS Flonase Allergy Relief (Fluticasone Propionate) 9.9 Ml [place].susp 2 Sprays NS DAILY Calcium 600 + Vit D 400 Caplet (Calcium Carbonate/Vitamin D3) 1 Each Tablet 1 Each PO DAILY Renvela (Sevelamer Carbonate) 800 Mg Tablet 2 Tab PO [id number] Norvasc (Amlodipine Besylate) 10 Mg Tablet 10 Mg PO DAILY Windy-Abby Rx Tablet (Vit B Cmplx 3/Fa/Vit C/Biotin) 1 Each Tablet 1 Each PO DAILY Vitals/I & O Vital Sign - Last 24 Hours 11/11/18 11/11/18 11/11/18 11/11/18 13:05 14:21 14:23 15:02 Temp 98.0 98.0 Pulse 84 75 Resp 18 20 B/P (MAP) 155/57 147/99 (115) Pulse Ox 97 97 O2 Delivery Nasal Cannula Nasal Cannula Nasal Cannula O2 Flow Rate 1.5 1.0 1.0 11/11/18 11/11/18 11/11/18 11/11/18 16:20 19:51 20:00 20:36 Temp 98.0 98.0 Pulse 77 Resp 18 B/P (MAP) 125/57 (79) Pulse Ox 97 96 100 O2 Delivery Nasal Cannula Room Air Nasal Cannula Nasal Cannula O2 Flow Rate 1.5 1.0 1.5 11/11/18 11/11/18 11/11/18 11/12/18 21:22 21:23 23:24 03:04 Temp 97.4 97.3 97.4 97.3 Pulse 67 67 74 69 Resp 20 18 B/P (MAP) 125/57 125/57 124/58 (80) 135/62 (86) Pulse Ox 95 96 O2 Delivery Nasal Cannula Room Air O2 Flow Rate 2.0 11/12/18 11/12/18 11/12/18 11/12/18 07:58 08:00 09:21 09:22 Temp 97.3 97.3 Pulse 68 68 68 Resp 20 B/P (MAP) 137/62 (87) 137/62 137/62 Pulse Ox 95 O2 Delivery Room Air Room Air 11/12/18 11/12/18 09:24 09:26 Pulse 68 68 B/P (MAP) 137/62 137/62 Intake and Output 11/11/18 11/11/18 11/12/18 15:01 23:01 07:01 Intake Total 330 ml 420 ml 240 ml Balance 330 ml 420 ml 240 ml ARELI MATIAS MD Nov 12, 2018 11:26
[2018-11-12 11:36] VITALS: BP 137/58
--- NOTE | 2018-11-12 11:46 | PDOC ---
Renal-Progress Notes Subjective Notes Notes BETTER BUT STILL HAS SOME SOB History of Present Illness Hx of present illness STABLE Vitals Vitals Vital Signs Date Time Temp Pulse Resp B/P (MAP) Pulse Ox O2 Delivery O2 Flow Rate FiO2 11/12/18 11:40 98 Room Air 11/12/18 11:36 97.4 72 22 137/58 (84) 97.4 11/11/18 23:24 2.0 Weight Weight [ ] I.O. Intake and Output Intake and Output 11/12/18 07:01 Intake Total 990 ml Balance 990 ml Intake Oral 840 ml IV Total 150 ml # Voids 4 Labs Labs Laboratory Tests Test 11/11/18 11:59 11/11/18 16:48 11/11/18 20:56 11/12/18 08:05 Glucose (Fingerstick) 138 mg/dL (70-99) 297 mg/dL (70-99) 270 mg/dL (70-99) 110 mg/dL (70-99) Review of Systems Constitutional: yes: alert, oriented Ears/Nose/Throat: Yes: no symptom reported Eyes: Yes: no symptom reported Pulmonary: Yes dyspnea Cardiovascular: Yes no symptom reported Gastrointestional: Yes: no symptom reported Genitourinary: Yes: no symptom reported Musculoskeletal: Yes: no symptom reported Skin: Yes no symptom reported Psychiatric/Neurological: Yes: no symptom reported Endocrine: Yes: no symptom reported Physical Exam General Appearance: no apparent distress Skin: warm Respiratory: decreased breath sounds Heart: S1S2 Abdomen: soft, bowel sounds present Genitourinary: bladder flat Extremities: pulses present Neurology: alert, oriented Musculoskeletal: Other Assessment Assessment IMP ESRD ANEMIA PNEUMONIA DM II HTN PLAN HD TOMORROW ARANESP ANTIBIOTICS/STEROIDS DAKOTA ARIAS MD Nov 12, 2018 11:46
[2018-11-12 19:50] VITALS: BP 119/40
[2018-11-12] MEDS: INSULIN GLARGINE 300 UNITS/3 ML INSULN.PEN. SQ SCH (20:37)
[2018-11-12 23:07] VITALS: BP 127/49
[2018-11-13 03:14] VITALS: BP 134/49
[2018-11-13 04:21] LABS: HEMATOCRIT 30.9 % (36.0-47.0); HEMOGLOBIN 10.1 g/dL (12.0-15.5); RED BLOOD COUNT 3.07 x10^6/uL (3.50-5.40); RED CELL DISTRIBUTION WIDTH 15.5 % (11.5-14.5); WHITE BLOOD COUNT 8.5 x10^3/uL (4.0-11.0)
[2018-11-13 05:34] LABS: CALCIUM 8.3 mg/dL (8.5-10.1); CREATININE 6.5 mg/dL (0.6-1.0); GFR 6.3
[2018-11-13 07:00] VITALS: BP 138/58
[2018-11-13] MEDS: SEVELAMER CARBONATE 800 MG TABLET. PO SCH ×3 (07:00→17:15)
[2018-11-13] MEDS: PANTOPRAZOLE 40 MG TABLET.DR. PO SCH ×2 (07:30→17:15)
[2018-11-13] MEDS: ASPIRIN CHEWABLE 81 MG TABLET. PO SCH (08:00)
[2018-11-13] MEDS: INSULIN LISPRO 300 UNITS/3 ML INSULN.PEN. SQ SCH ×3 (08:00→17:20)
[2018-11-13] MEDS: IPRATRPIUM/ALBUTEROL 0.5/2.5MG 3 ML NEBU. NEB SCH ×4 (08:32→16:11)
[2018-11-13] MEDS: cloNIDine HCL 0.1 MG TABLET PO SCH ×2 (09:00→21:23)
[2018-11-13] MEDS: FLUTICASONE 50MCG/NASAL SPRAY 16GM BOTTLE. NS SCH (09:00)
[2018-11-13] MEDS: LACTOBACILLUS RHAMNOSUS GG 1 CAPSULE. PO SCH ×2 (09:00→21:22)
[2018-11-13] MEDS: GABAPENTIN 100 MG CAPSULE. PO SCH ×2 (09:00→21:22)
--- NOTE | 2018-11-13 09:11 | PDOC ---
PROGRESS NOTES Subjective Subjective Patient reports feeling bloated and nauseous yesterday afternoon, had brief emesis with some BRB in it and felt better after this. Denies abdominal pain or nausea at present. Still some productive cough. Objective Objective Vital Signs Date Time Temp Pulse Resp B/P (MAP) Pulse Ox O2 Delivery O2 Flow Rate FiO2 11/13/18 08:33 98 Room Air 11/13/18 07:00 98.1 73 18 138/58 (84) 98.1 11/11/18 23:24 2.0 Intake and Output 11/13/18 07:01 Intake Total 680 ml Balance 680 ml Intake Oral 680 ml # Voids 2 Physical Exam Abdomen: Normal bowel sounds, Soft, No tenderness Heart: Regular rate Extremities: No edema General: Alert, Oriented X3, No acute distress Lungs: Other (few crackles in bases otherwise CTA) Assessment Assessment Problems Medical Problems: (1) Hypoxia Status: Acute Plan Plan of Care 1. Hematemesis - one episode yesterday, none since. Continue Protonix daily and follow. 2. acute respiratory failure with atypical pneumonia - no further hypoxia, continue po Augmentin and Prednisone. 3. ESRD - dialysis today as scheduled. 4. DM2 - controlled, continue insulins. 5. HTN - well controlled, continue present medications. Comment Review of Relevant I have reviewed the following items cosmo (where applicable) has been applied. Labs Laboratory Tests Test 11/11/18 11:59 11/11/18 16:48 11/11/18 20:56 11/12/18 08:05 Glucose (Fingerstick) 138 mg/dL (70-99) 297 mg/dL (70-99) 270 mg/dL (70-99) 110 mg/dL (70-99) Test 11/12/18 12:00 11/12/18 16:58 11/12/18 20:28 11/13/18 04:00 Glucose (Fingerstick) 130 mg/dL (70-99) 199 mg/dL (70-99) 229 mg/dL (70-99) White Blood Count 8.5 x10^3/uL (4.0-11.0) Red Blood Count 3.07 x10^6/uL (3.50-5.40) Hemoglobin 10.1 g/dL (12.0-15.5) Hematocrit 30.9 % (36.0-47.0) Mean Corpuscular Volume 101 fL (79-100) Mean Corpuscular Hemoglobin 33 pg (25-35) Mean Corpuscular Hemoglobin Concent 33 g/dL (31-37) Red Cell Distribution Width 15.5 % (11.5-14.5) Platelet Count 173 x10^3/uL (140-400) Sodium Level 136 mmol/L (136-145) Potassium Level 6.0 mmol/L (3.5-5.1) Chloride Level 99 mmol/L (98-107) Carbon Dioxide Level 26 mmol/L (21-32) Anion Gap 11 (6-14) Blood Urea Nitrogen 72 mg/dL (7-20) Creatinine 6.5 mg/dL (0.6-1.0) Estimated GFR (Cockcroft-Gault) 6.3 Glucose Level 290 mg/dL (70-99) Calcium Level 8.3 mg/dL (8.5-10.1) Test 11/13/18 07:11 Glucose (Fingerstick) 252 mg/dL (70-99) Laboratory Tests Test 11/12/18 12:00 11/12/18 16:58 11/12/18 20:28 11/13/18 04:00 Glucose (Fingerstick) 130 mg/dL (70-99) 199 mg/dL (70-99) 229 mg/dL (70-99) White Blood Count 8.5 x10^3/uL (4.0-11.0) Red Blood Count 3.07 x10^6/uL (3.50-5.40) Hemoglobin 10.1 g/dL (12.0-15.5) Hematocrit 30.9 % (36.0-47.0) Mean Corpuscular Volume 101 fL (79-100) Mean Corpuscular Hemoglobin 33 pg (25-35) Mean Corpuscular Hemoglobin Concent 33 g/dL (31-37) Red Cell Distribution Width 15.5 % (11.5-14.5) Platelet Count 173 x10^3/uL (140-400) Sodium Level 136 mmol/L (136-145) Potassium Level 6.0 mmol/L (3.5-5.1) Chloride Level 99 mmol/L (98-107) Carbon Dioxide Level 26 mmol/L (21-32) Anion Gap 11 (6-14) Blood Urea Nitrogen 72 mg/dL (7-20) Creatinine 6.5 mg/dL (0.6-1.0) Estimated GFR (Cockcroft-Gault) 6.3 Glucose Level 290 mg/dL (70-99) Calcium Level 8.3 mg/dL (8.5-10.1) Test 11/13/18 07:11 Glucose (Fingerstick) 252 mg/dL (70-99) Medications Current Medications Albuterol/ Ipratropium (Duoneb) 3 ml 1X ONCE NEB Last administered on 11:39; Start 11/05/18 at 11:15; Stop 11/05/18 at 11:16; Status DC Ondansetron HCl (Zofran) 4 mg PRN Q8HRS PRN IV NAUSEA/VOMITING; Start 11/05/18 at 13:15; Stop 11/06/18 at 13:14; Status DC Acetaminophen (Tylenol) 650 mg PRN Q4HRS PRN PO FEVER; Start 11/05/18 at 13:15 ; Stop 11/05/18 at 17:16; Status DC Acetaminophen (Tylenol) 650 mg PRN Q6HRS PRN PO MILD PAIN; Start 11/05/18 at 17 :15 Amlodipine Besylate (Norvasc) 10 mg DAILY PO Last administered on 11/12/18 09: 26; Start 11/06/18 at 09:00 Aspirin (Children'S Aspirin) 81 mg DAILYWBKFT PO Last administered on 09:22; Start 11/06/18 at 08:00 Cetirizine HCl (ZyrTEC) 10 mg DAILY PO Last administered on 11/12/18 09:26; Start 11/06/18 at 09:00 Clonidine HCl (Catapres) 0.1 mg BID PO Last administered on 11/12/18 20:32; Start 11/05/18 at 21:00 Gabapentin (Neurontin) 200 mg BID PO Last administered on 11/12/18 20:32; Start 11/05/18 at 21:00 Acetaminophen/ Hydrocodone Bitart (Lortab 5/325) 1 tab PRN Q6HRS PRN PO MODERATE TO SEVERE PAIN Last administered on 11/11/18 14:23; Start 11/05/18 at 17:15 Insulin Glargine (Lantus) 25 units QHS SQ ; Start 11/05/18 at 21:00; Stop at 21:00; Status DC Insulin Human Lispro (HumaLOG) TIDWMEALS SQ ; Start 11/06/18 at 08:00; Status UNV Sevelamer Carbonate (Renvela) 1,600 mg [id number] PO Last administered on at 17:51; Start 11/05/18 at 18:00 Albuterol Sulfate (Ventolin Neb Soln) 2.5 mg PRN Q6HRS PRN NEB SHORTNESS OF BREATH; Start 11/05/18 at 17:30 Non-Formulary Medication (Alendronate Sodium ) 70 mg Q2WKS PO ; Start 11/19/18 at 09:00; Status UNV Calcium/Vitamin D (Oscal D 500mg/ 200uts) 1 tab DAILY PO Last administered on at 09:22; Start 11/06/18 at 09:00 Fluticasone Propionate (Flonase) 2 spray DAILY NS Last administered on at 09:20; Start 11/06/18 at 09:00 Hydralazine HCl (Apresoline) 50 mg TID PO Last administered on 11/12/18at 14:32 ; Start 11/05/18 at 21:00 Albuterol/ Ipratropium (Duoneb) 3 ml RTQID NEB Last administered on 11/13/18at 08:32; Start 11/05/18 at 20:00 Labetalol HCl (Trandate) 200 mg DAILY PO Last administered on 11/12/18at 09:22; Start 11/06/18 at 09:00 Pantoprazole Sodium (Protonix) 40 mg DAILYAC PO Last administered on 11/12/18at 06:32; Start 11/06/18 at 07:30; Stop 11/12/18 at 10:13; Status DC Promethazine HCl/ Codeine (Phenergan With Codeine Oral Syrup) 5 ml PRN Q6HRS PRN PO COUGH; Start 11/05/18 at 17:30; Stop 11/09/18 at 12:53; Status DC Vitamin B Complex/ Vitamin C (Windy-Abby) 1 tab DAILY PO Last administered on at 09:22; Start 11/06/18 at 09:00 Insulin Human Lispro (HumaLOG) 0-5 UNITS TIDWMEALS SQ ; Start 11/06/18 at 08:00 ; Stop 11/06/18 at 08:36; Status DC Dextrose (Dextrose 50%-Water Syringe) 12.5 gm PRN Q15MIN PRN IV SEE COMMENTS Last administered on 11/09/18at 08:12; Start 11/05/18 at 19:30 Insulin Glargine (Lantus) 7 units QHS SQ Last administered on 11/06/18at 21:07; Start 11/05/18 at 21:00; Stop 11/07/18 at 08:50; Status DC Albuterol/ Ipratropium (Duoneb) 3 ml RTQID NEB ; Start 11/06/18 at 08:30; Stop 11/06/18 at 08:30; Status DC Methylprednisolone Sodium Succinate (SOLU-Medrol 125MG VIAL) 60 mg Q8HRS IV Last administered on 11/07/18at 05:58; Start 11/06/18 at 09:00; Stop 11/07/18 at 10:50; Status DC Insulin Human Lispro (HumaLOG) 0-9 UNITS TIDWMEALS SQ Last administered on 11/12at 17:59; Start 11/06/18 at 08:45 Dextrose (Dextrose 50%-Water Syringe) 12.5 gm PRN Q15MIN PRN IV SEE COMMENTS; Start 11/06/18 at 08:45; Status UNV Sodium Chloride 1,000 ml @ 1,000 mls/hr Q1H PRN IV hypotension; Start 11/06/18 at 09:59; Stop 11/06/18 at 15:58; Status DC Sodium Chloride 1,000 ml @ 400 mls/hr Q2H30M PRN IV PATENCY; Start 11/06/18 at 09:59; Stop 11/06/18 at 21:58; Status DC Info (PHARMACY MONITORING -- do not chart) 1 each PRN DAILY PRN MC SEE COMMENTS ; Start 11/06/18 at 10:00; Status UNV Info (PHARMACY MONITORING -- do not chart) 1 each PRN DAILY PRN MC SEE COMMENTS ; Start 11/06/18 at 10:00; Stop 11/10/18 at 14:44; Status DC Darbepoetin Yeison (Aranesp) 60 mcg WEEKLYHS SQ ; Start 11/06/18 at 21:00; Status UNV Darbepoetin Yeison (Aranesp) 60 mcg WEEKLYHS SQ Last administered on 11/06/18at 21 :00; Start 11/06/18 at 21:00 Piperacillin Sod/ Tazobactam Sod (Zosyn Per Pharmacy) 1 each PRN DAILY PRN MC SEE COMMENTS; Start 11/06/18 at 14:30; Stop 11/11/18 at 10:21; Status DC Vancomycin HCl (Vanco Per Pharmacy) 1 each PRN DAILY PRN MC SEE COMMENTS Last administered on 11/10/18at 14:40; Start 11/06/18 at 14:30; Stop 11/11/18 at 10:20 ; Status DC Piperacillin Sod/ Tazobactam Sod 2.25 gm/Sodium Chloride 50 ml @ 100 mls/hr Q8HRS IV Last administered on 11/11/18at 06:04; Start 11/06/18 at 15:00; Stop at 10:17; Status DC Vancomycin HCl 1.5 gm/Sodium Chloride 500 ml @ 250 mls/hr 1X ONCE IV Last administered on 11/06/18at 16:00; Start 11/06/18 at 16:00; Stop 11/06/18 at 17:59 ; Status DC Vancomycin HCl (Vancomycin Random Level) 1 each 1X ONCE MC Last administered on 11/08/18at 03:35; Start 11/08/18 at 06:00; Stop 11/08/18 at 06:01; Status DC Insulin Glargine (Lantus) 20 units QHS SQ Last administered on 11/07/18at 22:36 ; Start 11/07/18 at 21:00; Stop 11/08/18 at 09:19; Status DC Methylprednisolone Sodium Succinate (SOLU-Medrol 40MG VIAL) 30 mg Q8HRS IV Last administered on 11/08/18at 06:14; Start 11/07/18 at 14:00; Stop 11/08/18 at 13:48; Status DC Lactobacillus Rhamnosus (Culturelle) 1 cap BID PO Last administered on at 20:32; Start 11/07/18 at 21:00 Insulin Glargine (Lantus) 30 units QHS SQ Last administered on 11/08/18at 21:23 ; Start 11/08/18 at 21:00; Stop 11/09/18 at 08:39; Status DC Insulin Human Lispro (HumaLOG) 8 units TIDAC SQ Last administered on 11/08/18at 12:08; Start 11/08/18 at 11:30; Stop 11/09/18 at 08:39; Status DC Vancomycin HCl 500 mg/Sodium Chloride 100 ml @ 100 mls/hr QMWF IV Last administered on 11/10/18at 17:17; Start 11/10/18 at 16:00; Stop 11/11/18 at 10:17 ; Status DC Prednisone (Prednisone) 20 mg DAILY PO Last administered on 11/11/18at 08:34; Start 11/09/18 at 09:00; Stop 11/11/18 at 10:17; Status DC Sodium Chloride 1,000 ml @ 400 mls/hr Q2H30M PRN IV PATENCY; Start 11/08/18 at 12:00; Stop 11/08/18 at 23:59; Status DC Info (PHARMACY MONITORING -- do not chart) 1 each PRN DAILY PRN MC SEE COMMENTS ; Start 11/08/18 at 16:00; Status UNV Info (PHARMACY MONITORING -- do not chart) 1 each PRN DAILY PRN MC SEE COMMENTS ; Start 11/08/18 at 16:00; Status Cancel Insulin Glargine (Lantus) 10 units QHS SQ Last administered on 11/12/18at 20:37 ; Start 11/09/18 at 21:00 Guaifenesin/ Codeine Phosphate (Robitussin Ac) 5 ml PRN Q6HRS PRN PO COUGH Last administered on 11/11/18at 21:21; Start 11/09/18 at 13:00 Ondansetron HCl (Zofran) 4 mg PRN Q6HRS PRN IV NAUSEA/VOMITING Last administered on 11/09/18at 19:51; Start 11/09/18 at 19:30 Sodium Chloride 1,000 ml @ 1,000 mls/hr Q1H PRN IV hypotension; Start 11/10/18 at 11:53; Stop 11/10/18 at 17:52; Status DC Sodium Chloride 1,000 ml @ 400 mls/hr Q2H30M PRN IV PATENCY; Start 11/10/18 at 11:53; Stop 11/10/18 at 23:52; Status DC Info (PHARMACY MONITORING -- do not chart) 1 each PRN DAILY PRN MC SEE COMMENTS ; Start 11/10/18 at 12:00 Fluticasone Propionate (Flonase) 2 spray DAILY NS ; Start 11/12/18 at 09:00; Status UNV Prednisone (Prednisone) 60 mg DAILY PO Last administered on 11/12/18at 09:21; Start 11/12/18 at 09:00 Amoxicillin/ Clavulanate Potassium (Augmentin 875/ 125mg) 1 tab BID PO Last administered on 11/12/18at 09:25; Start 11/11/18 at 10:30; Stop 11/12/18 at 16:54 ; Status DC Pantoprazole Sodium (Protonix) 40 mg BIDAC PO Last administered on 11/12/18at 17 :52; Start 11/12/18 at 16:30 Amoxicillin/ Clavulanate Potassium (Augmentin 500/ 125mg) 1 tab DAILY PO ; Start 11/13/18 at 09:00 Active Scripts Active Prednisone (Prednisone) 10 Mg Tablet 10 Mg PO DAILY 12 Days 4 pills daily for 3 days then 3 pills daily for 3 days then 2 pills daily for 3 days then 1 pill daily for 3 days. Augmentin 875-125 Tablet (Amoxicillin/Potassium Clav) 1 Each Tablet 1 Tab PO BID 7 Days [guaiFENesin/CODEINE 100mg/10mg] 5 ML Liquid 5 Ml PO PRN Q6HRS PRN Proair Respiclick (Albuterol Sulfate) 90 Mcg Aer.pow.ba 1 Puff IH PRN Q6HRS PRN Culturelle (Lactobacillus Rhamnosus Gg) 1 Each Cap.sprink 1 Cap PO BID 30 Days Combivent Respimat Inhal (Ipratropium/Albuterol Sulfate) 4 Gm Aer.w.adap 2 Inh IH QID 30 Days Labetalol Hcl 200 Mg Tablet 1 Tab PO DAILY 30 Days Children's Aspirin (Aspirin) 81 Mg Tab.chew 81 Mg PO DAILYWBKFT 30 Days Reported Omeprazole 40 Mg Capsule.dr 40 Mg PO DAILY Hydrocodone-Apap 5-325 (Hydrocodone Bit/Acetaminophen) 1 Each Tablet 1 Tab PO Q6HRS PRN Hydralazine Hcl 50 Mg Tablet 1 Tab PO TID Gabapentin (Gabapentin) 100 Mg Capsule 200 Mg PO BID Cetirizine Hcl 10 Mg Tablet 1 Tab PO DAILY Tylenol (Acetaminophen) 325 Mg Tablet 2 Tab PO PRN Q6HRS PRN Clonidine Hcl 0.1 Mg Tablet 0.1 Mg PO BID Alendronate Sodium 70 Mg Tablet 70 Mg PO Q2WKS Flonase Allergy Relief (Fluticasone Propionate) 9.9 Ml [place].susp 2 Sprays NS DAILY Calcium 600 + Vit D 400 Caplet (Calcium Carbonate/Vitamin D3) 1 Each Tablet 1 Each PO DAILY Renvela (Sevelamer Carbonate) 800 Mg Tablet 2 Tab PO [id number] Norvasc (Amlodipine Besylate) 10 Mg Tablet 10 Mg PO DAILY Windy-Abby Rx Tablet (Vit B Cmplx 3/Fa/Vit C/Biotin) 1 Each Tablet 1 Each PO DAILY Vitals/I & O Vital Sign - Last 24 Hours 11/12/18 11/12/18 11/12/18 11/12/18 09:21 09:22 09:24 09:26 Pulse 68 68 68 68 B/P (MAP) 137/62 137/62 137/62 137/62 11/12/18 11/12/18 11/12/18 11/12/18 11:36 11:40 14:32 19:50 Temp 97.4 97.8 97.4 97.8 Pulse 72 72 67 Resp 22 16 B/P (MAP) 137/58 (84) 137/58 119/40 (66) Pulse Ox 91 98 O2 Delivery Room Air Room Air Room Air 11/12/18 11/12/18 11/12/18 11/12/18 20:00 20:32 20:33 21:20 Pulse 67 67 B/P (MAP) 119/40 119/40 Pulse Ox 94 O2 Delivery Room Air Room Air 11/12/18 11/13/18 11/13/18 11/13/18 23:07 03:14 07:00 08:00 Temp 97.4 97.3 98.1 97.4 97.3 98.1 Pulse 64 71 73 Resp 16 16 18 B/P (MAP) 127/49 (75) 134/49 (77) 138/58 (84) Pulse Ox 92 92 91 O2 Delivery Room Air Room Air Room Air Room Air 11/13/18 08:33 Pulse Ox 98 O2 Delivery Room Air Intake and Output 11/12/18 11/12/18 11/13/18 15:01 23:01 07:01 Intake Total 200 ml 480 ml Balance 200 ml 480 ml ARELI MATIAS MD Nov 13, 2018 09:11
[2018-11-13] MEDS ORDERED: IV NORMAL SALINE 1000ML BAG 1,000 ML IV PRN (10:27)
[2018-11-13] MEDS ORDERED: DIALYSIS PATIENT. MC PRN ×2 (10:30)
[2018-11-13 15:00] VITALS: BP 133/50
[2018-11-13] MEDS: AMOXICILLIN/K CLAV 500/125MG TABLET. PO SCH (15:44)
[2018-11-13] MEDS: CALCIUM CARB/VIT D3 500/200 TABLET. PO SCH (15:45)
[2018-11-13] MEDS: LABETALOL HCL 200 MG TABLET PO SCH (15:45)
[2018-11-13] MEDS: amLODIPine BESYLATE 10 MG TABLET PO SCH (15:45)
[2018-11-13] MEDS: CETIRIZINE HCL 10 MG TABLET. PO SCH (15:46)
[2018-11-13] MEDS: FOLIC/VIT B COMP W-C (RENAL) TABLET. PO SCH (15:50)
--- NOTE | 2018-11-13 17:43 | PDOC ---
SUBJECTIVE ROS Stable, No new complaints OBJECTIVE Vital Signs Vital Signs Date Time Temp Pulse Resp B/P (MAP) Pulse Ox O2 Delivery O2 Flow Rate FiO2 11/13/18 16:12 98 Room Air 11/13/18 15:45 73 138/58 11/13/18 15:00 97.8 18 97.8 I & 0 Intake and Output 11/13/18 07:01 Intake Total 680 ml Balance 680 ml Intake Oral 680 ml # Voids 2 PHYSICAL EXAM Physical Exam General Appearance: no apparent distress Skin: warm Respiratory: decreased breath sounds Heart: S1S2 Abdomen: soft, bowel sounds present Genitourinary: bladder flat Extremities: pulses present Neurology: alert, oriented Musculoskeletal: Other DIAGNOSIS/ASSESSMENT Assessment & Plan ESRD-on HD, MWF Seen on HD 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, 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 Hyperkalemia- HD today Anemia- On Aranesp Pneumonia - Abx as per Steroids DM II HTN-continue HTnsives COMMENT/RELEVANT DATA Meds Current Medications Medications (Trade) Dose Ordered Sig/Bill Start Time Stop Time Status Last Admin Dose Admin Acetaminophen (Tylenol) 650 mg PRN Q6HRS PRN 11/05/18 17:15 Acetaminophen/ Hydrocodone Bitart (Lortab 5/325) 1 tab PRN Q6HRS PRN 11/05/18 17:15 11/11/18 14:23 1 TAB Albuterol Sulfate (Ventolin Neb Soln) 2.5 mg PRN Q6HRS PRN 11/05/18 17:30 Albuterol/ Ipratropium (Duoneb) 3 ml RTQID 11/06/18 08:30 11/06/18 08:30 DC Amlodipine Besylate (Norvasc) 10 mg DAILY 11/06/18 09:00 11/13/18 15:45 10 MG Amoxicillin/ Clavulanate Potassium (Augmentin 500/ 125mg) 1 tab DAILY 11/13/18 09:00 11/13/18 15:44 1 TAB Amoxicillin/ Clavulanate Potassium (Augmentin 875/ 125mg) 1 tab BID 11/11/18 10:30 11/12/18 16:54 DC 11/12/18 09:25 1 TAB Aspirin (Children'S Aspirin) 81 mg DAILYWBKFT 11/06/18 08:00 11/12/18 09:22 81 MG Calcium/Vitamin D (Oscal D 500mg/ 200uts) 1 tab DAILY 11/06/18 09:00 11/13/18 15:45 1 TAB Cetirizine HCl (ZyrTEC) 10 mg DAILY 11/06/18 09:00 11/13/18 15:46 10 MG Clonidine HCl (Catapres) 0.1 mg BID 11/05/18 21:00 11/12/18 20:32 0.1 MG Darbepoetin Yeison (Aranesp) 60 mcg WEEKLYHS 11/06/18 21:00 11/06/18 21:00 60 MCG Dextrose (Dextrose 50%-Water Syringe) 12.5 gm PRN Q15MIN PRN 11/06/18 08:45 UNV Fluticasone Propionate (Flonase) 2 spray DAILY 11/12/18 09:00 UNV Gabapentin (Neurontin) 200 mg BID 11/05/18 21:00 11/12/18 20:32 200 MG Guaifenesin/ Codeine Phosphate (Robitussin Ac) 5 ml PRN Q6HRS PRN 11/09/18 13:00 11/11/18 21:21 5 ML Hydralazine HCl (Apresoline) 50 mg TID 11/05/18 21:00 11/12/18 14:32 50 MG Info (PHARMACY MONITORING -- do not chart) 1 each PRN DAILY PRN 11/13/18 10:30 UNV Insulin Glargine (Lantus) 10 units QHS 11/09/18 21:00 11/12/18 20:37 10 UNITS Insulin Human Lispro (HumaLOG) 8 units TIDAC 11/08/18 11:30 11/09/18 08:39 DC 11/08/18 12:08 8 UNITS Labetalol HCl (Trandate) 200 mg DAILY 11/06/18 09:00 11/13/18 15:45 200 MG Lactobacillus Rhamnosus (Culturelle) 1 cap BID 11/07/18 21:00 11/12/18 20:32 1 CAP Methylprednisolone Sodium Succinate (SOLU-Medrol 40MG VIAL) 30 mg Q8HRS 11/07/18 14:00 11/08/18 13:48 DC 11/08/18 06:14 30 MG Methylprednisolone Sodium Succinate (SOLU-Medrol 125MG VIAL) 60 mg Q8HRS 11/06/18 09:00 11/07/18 10:50 DC 11/07/18 05:58 60 MG Non-Formulary Medication (Alendronate Sodium ) 70 mg Q2WKS 11/19/18 09:00 UNV Ondansetron HCl (Zofran) 4 mg PRN Q6HRS PRN 11/09/18 19:30 11/09/18 19:51 4 MG Pantoprazole Sodium (Protonix) 40 mg BIDAC 11/12/18 16:30 11/13/18 17:15 40 MG Piperacillin Sod/ Tazobactam Sod (Zosyn Per Pharmacy) 1 each PRN DAILY PRN 11/06/18 14:30 11/11/18 10:21 DC Piperacillin Sod/ Tazobactam Sod 2.25 gm/Sodium Chloride 50 ml @ 100 mls/hr Q8HRS 11/06/18 15:00 11/11/18 10:17 DC 11/11/18 06:04 100 MLS/HR Prednisone (Prednisone) 40 mg DAILY 11/14/18 09:00 Promethazine HCl/ Codeine (Phenergan With Codeine Oral Syrup) 5 ml PRN Q6HRS PRN 11/05/18 17:30 11/09/18 12:53 DC Sevelamer Carbonate (Renvela) 1,600 mg [id number] 11/05/18 18:00 11/13/18 17:15 1,600 MG Sodium Chloride 1,000 ml @ 1,000 mls/hr Q1H PRN 11/13/18 10:27 11/13/18 16:27 DC Vancomycin HCl (Vanco Per Pharmacy) 1 each PRN DAILY PRN 11/06/18 14:30 11/11/18 10:20 DC 11/10/18 14:40 1 EACH Vancomycin HCl (Vancomycin Random Level) 1 each 1X ONCE 11/08/18 06:00 11/08/18 06:01 DC 11/08/18 03:35 1 EACH Vancomycin HCl 1.5 gm/Sodium Chloride 500 ml @ 250 mls/hr 1X ONCE 11/06/18 16:00 11/06/18 17:59 DC 11/06/18 16:00 250 MLS/HR Vancomycin HCl 500 mg/Sodium Chloride 100 ml @ 100 mls/hr QMWF 11/10/18 16:00 11/11/18 10:17 DC 11/10/18 17:17 100 MLS/HR Vitamin B Complex/ Vitamin C (Windy-Abby) 1 tab DAILY 11/06/18 09:00 11/13/18 15:50 1 TAB Lab Laboratory Tests Test 11/12/18 20:28 11/13/18 04:00 11/13/18 07:11 11/13/18 17:01 Glucose (Fingerstick) 229 mg/dL (70-99) 252 mg/dL (70-99) 218 mg/dL (70-99) White Blood Count 8.5 x10^3/uL (4.0-11.0) Red Blood Count 3.07 x10^6/uL (3.50-5.40) Hemoglobin 10.1 g/dL (12.0-15.5) Hematocrit 30.9 % (36.0-47.0) Mean Corpuscular Volume 101 fL (79-100) Mean Corpuscular Hemoglobin 33 pg (25-35) Mean Corpuscular Hemoglobin Concent 33 g/dL (31-37) Red Cell Distribution Width 15.5 % (11.5-14.5) Platelet Count 173 x10^3/uL (140-400) Sodium Level 136 mmol/L (136-145) Potassium Level 6.0 mmol/L (3.5-5.1) Chloride Level 99 mmol/L (98-107) Carbon Dioxide Level 26 mmol/L (21-32) Anion Gap 11 (6-14) Blood Urea Nitrogen 72 mg/dL (7-20) Creatinine 6.5 mg/dL (0.6-1.0) Estimated GFR (Cockcroft-Gault) 6.3 Glucose Level 290 mg/dL (70-99) Calcium Level 8.3 mg/dL (8.5-10.1) Results All relevant outside records, renal labs, imaging studies, telemetry/EKG's were reviewed. XAVIER VELA MD Nov 13, 2018 17:43
--- NOTE | 2018-11-13 18:19 | PDOC ---
PULMONARY PROGRESS NOTES Subjective not more soa no more emesis Vitals Vital Signs Date Time Temp Pulse Resp B/P (MAP) Pulse Ox O2 Delivery O2 Flow Rate FiO2 11/13/18 16:12 98 Room Air 11/13/18 15:45 73 138/58 11/13/18 15:00 97.8 18 97.8 ROS: No Nausea, No Chest Pain General: Alert, No acute distress Lungs: Crackles Cardiovascular: S1, S2 Abdomen: Soft, Non-tender Neuro Exam: Alert, Oriented Extremities: No Edema Skin: Warm Labs Laboratory Tests Test 11/11/18 20:56 11/12/18 08:05 11/12/18 12:00 11/12/18 16:58 Glucose (Fingerstick) 270 mg/dL (70-99) 110 mg/dL (70-99) 130 mg/dL (70-99) 199 mg/dL (70-99) Test 11/12/18 20:28 11/13/18 04:00 11/13/18 07:11 11/13/18 17:01 Glucose (Fingerstick) 229 mg/dL (70-99) 252 mg/dL (70-99) 218 mg/dL (70-99) White Blood Count 8.5 x10^3/uL (4.0-11.0) Red Blood Count 3.07 x10^6/uL (3.50-5.40) Hemoglobin 10.1 g/dL (12.0-15.5) Hematocrit 30.9 % (36.0-47.0) Mean Corpuscular Volume 101 fL (79-100) Mean Corpuscular Hemoglobin 33 pg (25-35) Mean Corpuscular Hemoglobin Concent 33 g/dL (31-37) Red Cell Distribution Width 15.5 % (11.5-14.5) Platelet Count 173 x10^3/uL (140-400) Sodium Level 136 mmol/L (136-145) Potassium Level 6.0 mmol/L (3.5-5.1) Chloride Level 99 mmol/L (98-107) Carbon Dioxide Level 26 mmol/L (21-32) Anion Gap 11 (6-14) Blood Urea Nitrogen 72 mg/dL (7-20) Creatinine 6.5 mg/dL (0.6-1.0) Estimated GFR (Cockcroft-Gault) 6.3 Glucose Level 290 mg/dL (70-99) Calcium Level 8.3 mg/dL (8.5-10.1) Laboratory Tests Test 11/12/18 20:28 11/13/18 04:00 11/13/18 07:11 11/13/18 17:01 Glucose (Fingerstick) 229 mg/dL (70-99) 252 mg/dL (70-99) 218 mg/dL (70-99) White Blood Count 8.5 x10^3/uL (4.0-11.0) Red Blood Count 3.07 x10^6/uL (3.50-5.40) Hemoglobin 10.1 g/dL (12.0-15.5) Hematocrit 30.9 % (36.0-47.0) Mean Corpuscular Volume 101 fL (79-100) Mean Corpuscular Hemoglobin 33 pg (25-35) Mean Corpuscular Hemoglobin Concent 33 g/dL (31-37) Red Cell Distribution Width 15.5 % (11.5-14.5) Platelet Count 173 x10^3/uL (140-400) Sodium Level 136 mmol/L (136-145) Potassium Level 6.0 mmol/L (3.5-5.1) Chloride Level 99 mmol/L (98-107) Carbon Dioxide Level 26 mmol/L (21-32) Anion Gap 11 (6-14) Blood Urea Nitrogen 72 mg/dL (7-20) Creatinine 6.5 mg/dL (0.6-1.0) Estimated GFR (Cockcroft-Gault) 6.3 Glucose Level 290 mg/dL (70-99) Calcium Level 8.3 mg/dL (8.5-10.1) Medications Active Scripts Medications Dose Route/Sig Max Daily Dose Days Date Category Proair Respiclick (Albuterol Sulfate) 90 Mcg Aer.pow.ba 1 Puff IH PRN Q6HRS PRN 04/10/18 Rx Culturelle (Lactobacillus Rhamnosus Gg) 1 Each Cap.sprink 1 Cap PO BID 30 12/15/17 Rx Combivent Respimat Inhal (Ipratropium/Albuterol Sulfate) 4 Gm Aer.w.adap 2 Inh IH QID 30 09/02/17 Rx Labetalol Hcl 200 Mg Tablet 1 Tab PO DAILY 30 09/02/17 Rx Omeprazole 40 Mg Capsule.dr 40 Mg PO DAILY 09/01/17 Reported Hydrocodone-Apap 5-325 (Hydrocodone Bit/Acetaminophen) 1 Each Tablet 1 Tab PO Q6HRS PRN 09/01/17 Reported Hydralazine Hcl 50 Mg Tablet 1 Tab PO TID 04/08/17 Reported Gabapentin (Gabapentin) 100 Mg Capsule 200 Mg PO BID 04/08/17 Reported Cetirizine Hcl 10 Mg Tablet 1 Tab PO DAILY 10/29/16 Reported Tylenol (Acetaminophen) 325 Mg Tablet 2 Tab PO PRN Q6HRS PRN 10/29/16 Reported Clonidine Hcl 0.1 Mg Tablet 0.1 Mg PO BID 09/17/16 Reported Alendronate Sodium 70 Mg Tablet 70 Mg PO Q2WKS 09/17/16 Reported Flonase Allergy Relief (Fluticasone Propionate) 9.9 Ml [place].susp 2 Sprays NS DAILY 09/17/16 Reported Children's Aspirin (Aspirin) 81 Mg Tab.chew 81 Mg PO DAILYWBKFT 30 11/04/15 Rx Calcium 600 + Vit D 400 Caplet (Calcium Carbonate/Vitamin D3) 1 Each Tablet 1 Each PO DAILY 10/24/15 Reported Renvela (Sevelamer Carbonate) 800 Mg Tablet 2 Tab PO [id number] 12/21/14 Reported Norvasc (Amlodipine Besylate) 10 Mg Tablet 10 Mg PO DAILY 11/11/13 Reported Windy-Abby Rx Tablet (Vit B Cmplx 3/Fa/Vit C/Biotin) 1 Each Tablet 1 Each PO DAILY 11/11/13 Reported Impression . 1. Acute hypoxic respiratory failure secondary to likely interstitial pneumonia. She has a cough with yellow sputum production and had a fever of 102 at home I suspect gram-negative pneumonia. clinically improved 2. End-stage renal disease, on hemodialysis. 3. No history of tobacco use. 4. Mild leukocytosis present on admission, resolved. 5. Influenza screen negative. 6. allergic rhinitis 7. GERD Plan . IMPROVING HOME SOON OK BY ME [employer] AND STEROID T[employer] TAMI RAMIREZ MD Nov 13, 2018 18:19
[2018-11-13 19:35] VITALS: BP 121/57
[2018-11-13] MEDS: DARBEPOETIN ALFA 60 MCG/0.3 ML DISP.SYRIN. SQ SCH (21:25)
[2018-11-13] MEDS: INSULIN GLARGINE 300 UNITS/3 ML INSULN.PEN. SQ SCH (21:31)
[2018-11-13 23:43] VITALS: BP 118/76
[2018-11-14 03:29] VITALS: BP 144/57
[2018-11-14 07:00] VITALS: BP 147/57
[2018-11-14] MEDS: IPRATRPIUM/ALBUTEROL 0.5/2.5MG 3 ML NEBU. NEB SCH ×3 (07:45→11:49)
[2018-11-14] MEDS: SEVELAMER CARBONATE 800 MG TABLET. PO SCH ×2 (08:14→13:01)
[2018-11-14] MEDS: PANTOPRAZOLE 40 MG TABLET.DR. PO SCH (08:15)
[2018-11-14] MEDS: ASPIRIN CHEWABLE 81 MG TABLET. PO SCH (08:15)
[2018-11-14] MEDS: FLUTICASONE 50MCG/NASAL SPRAY 16GM BOTTLE. NS SCH (08:16)
[2018-11-14] MEDS: INSULIN LISPRO 300 UNITS/3 ML INSULN.PEN. SQ SCH ×2 (08:22→13:07)
[2018-11-14] MEDS: FOLIC/VIT B COMP W-C (RENAL) TABLET. PO SCH (08:31)
[2018-11-14] MEDS: AMOXICILLIN/K CLAV 500/125MG TABLET. PO SCH (08:32)
[2018-11-14] MEDS: GABAPENTIN 100 MG CAPSULE. PO SCH (08:32)
--- NOTE | 2018-11-14 08:32 | PDOC ---
PROGRESS NOTES Subjective Subjective Patient without complaint, feels better, no emesis or nausea. Objective Objective Vital Signs Date Time Temp Pulse Resp B/P (MAP) Pulse Ox O2 Delivery O2 Flow Rate FiO2 11/14/18 07:46 93 Room Air 11/14/18 07:00 98.1 77 20 147/57 (87) 98.1 11/11/18 23:24 2.0 Intake and Output 11/14/18 07:01 Intake Total 980 ml Balance 980 ml Intake Oral 980 ml # Bowel Movements 1 Physical Exam Abdomen: Normal bowel sounds, Soft, No tenderness Heart: Regular rate Extremities: No edema General: Alert, Oriented X3, No acute distress Lungs: Other (few crackles in bases, otherwise CTA) Assessment Assessment Problems Medical Problems: (1) Hypoxia Status: Acute Plan Plan of Care 1. Acute respiratory failure with atypical pneumonia - much improved, no hypoxia. Home today on Augmentin and Prednisone taper. 2. ESRD - stable, outpatient dialysis tomorrow per her usual schedule. 3. HTN - well controlled. 4. DM2 - well controlled. Comment Review of Relevant I have reviewed the following items cosmo (where applicable) has been applied. Labs Laboratory Tests Test 11/12/18 12:00 11/12/18 16:58 11/12/18 20:28 11/13/18 04:00 Glucose (Fingerstick) 130 mg/dL (70-99) 199 mg/dL (70-99) 229 mg/dL (70-99) White Blood Count 8.5 x10^3/uL (4.0-11.0) Red Blood Count 3.07 x10^6/uL (3.50-5.40) Hemoglobin 10.1 g/dL (12.0-15.5) Hematocrit 30.9 % (36.0-47.0) Mean Corpuscular Volume 101 fL (79-100) Mean Corpuscular Hemoglobin 33 pg (25-35) Mean Corpuscular Hemoglobin Concent 33 g/dL (31-37) Red Cell Distribution Width 15.5 % (11.5-14.5) Platelet Count 173 x10^3/uL (140-400) Sodium Level 136 mmol/L (136-145) Potassium Level 6.0 mmol/L (3.5-5.1) Chloride Level 99 mmol/L (98-107) Carbon Dioxide Level 26 mmol/L (21-32) Anion Gap 11 (6-14) Blood Urea Nitrogen 72 mg/dL (7-20) Creatinine 6.5 mg/dL (0.6-1.0) Estimated GFR (Cockcroft-Gault) 6.3 Glucose Level 290 mg/dL (70-99) Calcium Level 8.3 mg/dL (8.5-10.1) Test 11/13/18 07:11 11/13/18 17:01 11/13/18 20:46 11/14/18 07:19 Glucose (Fingerstick) 252 mg/dL (70-99) 218 mg/dL (70-99) 165 mg/dL (70-99) 229 mg/dL (70-99) Laboratory Tests Test 11/13/18 17:01 11/13/18 20:46 11/14/18 07:19 Glucose (Fingerstick) 218 mg/dL (70-99) 165 mg/dL (70-99) 229 mg/dL (70-99) Medications Current Medications Albuterol/ Ipratropium (Duoneb) 3 ml 1X ONCE NEB Last administered on at 11:39; Start 11/05/18 at 11:15; Stop 11/05/18 at 11:16; Status DC Ondansetron HCl (Zofran) 4 mg PRN Q8HRS PRN IV NAUSEA/VOMITING; Start 11/05/18 at 13:15; Stop 11/06/18 at 13:14; Status DC Acetaminophen (Tylenol) 650 mg PRN Q4HRS PRN PO FEVER; Start 11/05/18 at 13:15 ; Stop 11/05/18 at 17:16; Status DC Acetaminophen (Tylenol) 650 mg PRN Q6HRS PRN PO MILD PAIN; Start 11/05/18 at 17 :15 Amlodipine Besylate (Norvasc) 10 mg DAILY PO Last administered on 11/13/18at 15: 45; Start 11/06/18 at 09:00 Aspirin (Children'S Aspirin) 81 mg DAILYWBKFT PO Last administered on at 08:15; Start 11/06/18 at 08:00 Cetirizine HCl (ZyrTEC) 10 mg DAILY PO Last administered on 11/13/18at 15:46; Start 11/06/18 at 09:00 Clonidine HCl (Catapres) 0.1 mg BID PO Last administered on 11/13/18 21:23; Start 11/05/18 at 21:00 Gabapentin (Neurontin) 200 mg BID PO Last administered on 11/13/18 21:22; Start 11/05/18 at 21:00 Acetaminophen/ Hydrocodone Bitart (Lortab 5/325) 1 tab PRN Q6HRS PRN PO MODERATE TO SEVERE PAIN Last administered on 11/11/18at 14:23; Start 11/05/18 at 17:15 Insulin Glargine (Lantus) 25 units QHS SQ ; Start 11/05/18 at 21:00; Stop at 21:00; Status DC Insulin Human Lispro (HumaLOG) TIDWMEALS SQ ; Start 11/06/18 at 08:00; Status UNV Sevelamer Carbonate (Renvela) 1,600 mg [id number] PO Last administered on at 08:14; Start 11/05/18 at 18:00 Albuterol Sulfate (Ventolin Neb Soln) 2.5 mg PRN Q6HRS PRN NEB SHORTNESS OF BREATH; Start 11/05/18 at 17:30 Non-Formulary Medication (Alendronate Sodium ) 70 mg Q2WKS PO ; Start 11/19/18 at 09:00; Status UNV Calcium/Vitamin D (Oscal D 500mg/ 200uts) 1 tab DAILY PO Last administered on 15:45; Start 11/06/18 at 09:00 Fluticasone Propionate (Flonase) 2 spray DAILY NS Last administered on 08:16; Start 11/06/18 at 09:00 Hydralazine HCl (Apresoline) 50 mg TID PO Last administered on 11/12/18 14:32 ; Start 11/05/18 at 21:00 Albuterol/ Ipratropium (Duoneb) 3 ml RTQID NEB Last administered on 11/14/18 07:45; Start 11/05/18 at 20:00 Labetalol HCl (Trandate) 200 mg DAILY PO Last administered on 11/13/18at 15:45; Start 11/06/18 at 09:00 Pantoprazole Sodium (Protonix) 40 mg DAILYAC PO Last administered on 11/12/18at 06:32; Start 11/06/18 at 07:30; Stop 11/12/18 at 10:13; Status DC Promethazine HCl/ Codeine (Phenergan With Codeine Oral Syrup) 5 ml PRN Q6HRS PRN PO COUGH; Start 11/05/18 at 17:30; Stop 11/09/18 at 12:53; Status DC Vitamin B Complex/ Vitamin C ([place]-Abby) 1 tab DAILY PO Last administered on at 15:50; Start 11/06/18 at 09:00 Insulin Human Lispro (HumaLOG) 0-5 UNITS TIDWMEALS SQ ; Start 11/06/18 at 08:00 ; Stop 11/06/18 at 08:36; Status DC Dextrose (Dextrose 50%-Water Syringe) 12.5 gm PRN Q15MIN PRN IV SEE COMMENTS Last administered on 11/09/18at 08:12; Start 11/05/18 at 19:30 Insulin Glargine (Lantus) 7 units QHS SQ Last administered on 11/06/18at 21:07; Start 11/05/18 at 21:00; Stop 11/07/18 at 08:50; Status DC Albuterol/ Ipratropium (Duoneb) 3 ml RTQID NEB ; Start 11/06/18 at 08:30; Stop 11/06/18 at 08:30; Status DC Methylprednisolone Sodium Succinate (SOLU-Medrol 125MG VIAL) 60 mg Q8HRS IV Last administered on 11/07/18at 05:58; Start 11/06/18 at 09:00; Stop 11/07/18 at 10:50; Status DC Insulin Human Lispro (HumaLOG) 0-9 UNITS TIDWMEALS SQ Last administered on 11/14at 08:22; Start 11/06/18 at 08:45 Dextrose (Dextrose 50%-Water Syringe) 12.5 gm PRN Q15MIN PRN IV SEE COMMENTS; Start 11/06/18 at 08:45; Status UNV Sodium Chloride 1,000 ml @ 1,000 mls/hr Q1H PRN IV hypotension; Start 11/06/18 at 09:59; Stop 11/06/18 at 15:58; Status DC Sodium Chloride 1,000 ml @ 400 mls/hr Q2H30M PRN IV PATENCY; Start 11/06/18 at 09:59; Stop 11/06/18 at 21:58; Status DC Info (PHARMACY MONITORING -- do not chart) 1 each PRN DAILY PRN MC SEE COMMENTS ; Start 11/06/18 at 10:00; Status UNV Info (PHARMACY MONITORING -- do not chart) 1 each PRN DAILY PRN MC SEE COMMENTS ; Start 11/06/18 at 10:00; Stop 11/10/18 at 14:44; Status DC Darbepoetin Yeison (Aranesp) 60 mcg WEEKLYHS SQ ; Start 11/06/18 at 21:00; Status UNV Darbepoetin Yeison (Aranesp) 60 mcg WEEKLYHS SQ Last administered on 11/13/18at 21 :25; Start 11/06/18 at 21:00 Piperacillin Sod/ Tazobactam Sod (Zosyn Per Pharmacy) 1 each PRN DAILY PRN MC SEE COMMENTS; Start 11/06/18 at 14:30; Stop 11/11/18 at 10:21; Status DC Vancomycin HCl (Vanco Per Pharmacy) 1 each PRN DAILY PRN MC SEE COMMENTS Last administered on 11/10/18at 14:40; Start 11/06/18 at 14:30; Stop 11/11/18 at 10:20 ; Status DC Piperacillin Sod/ Tazobactam Sod 2.25 gm/Sodium Chloride 50 ml @ 100 mls/hr Q8HRS IV Last administered on 11/11/18at 06:04; Start 11/06/18 at 15:00; Stop at 10:17; Status DC Vancomycin HCl 1.5 gm/Sodium Chloride 500 ml @ 250 mls/hr 1X ONCE IV Last administered on 11/06/18at 16:00; Start 11/06/18 at 16:00; Stop 11/06/18 at 17:59 ; Status DC Vancomycin HCl (Vancomycin Random Level) 1 each 1X ONCE MC Last administered on 11/08/18at 03:35; Start 11/08/18 at 06:00; Stop 11/08/18 at 06:01; Status DC Insulin Glargine (Lantus) 20 units QHS SQ Last administered on 11/07/18at 22:36 ; Start 11/07/18 at 21:00; Stop 11/08/18 at 09:19; Status DC Methylprednisolone Sodium Succinate (SOLU-Medrol 40MG VIAL) 30 mg Q8HRS IV Last administered on 11/08/18at 06:14; Start 11/07/18 at 14:00; Stop 11/08/18 at 13:48; Status DC Lactobacillus Rhamnosus (Culturelle) 1 cap BID PO Last administered on at 21:22; Start 11/07/18 at 21:00 Insulin Glargine (Lantus) 30 units QHS SQ Last administered on 11/08/18at 21:23 ; Start 11/08/18 at 21:00; Stop 11/09/18 at 08:39; Status DC Insulin Human Lispro (HumaLOG) 8 units TIDAC SQ Last administered on 11/08/18at 12:08; Start 11/08/18 at 11:30; Stop 11/09/18 at 08:39; Status DC Vancomycin HCl 500 mg/Sodium Chloride 100 ml @ 100 mls/hr QMWF IV Last administered on 11/10/18at 17:17; Start 11/10/18 at 16:00; Stop 11/11/18 at 10:17 ; Status DC Prednisone (Prednisone) 20 mg DAILY PO Last administered on 11/11/18at 08:34; Start 11/09/18 at 09:00; Stop 11/11/18 at 10:17; Status DC Sodium Chloride 1,000 ml @ 400 mls/hr Q2H30M PRN IV PATENCY; Start 11/08/18 at 12:00; Stop 11/08/18 at 23:59; Status DC Info (PHARMACY MONITORING -- do not chart) 1 each PRN DAILY PRN MC SEE COMMENTS ; Start 11/08/18 at 16:00; Status UNV Info (PHARMACY MONITORING -- do not chart) 1 each PRN DAILY PRN MC SEE COMMENTS ; Start 11/08/18 at 16:00; Status Cancel Insulin Glargine (Lantus) 10 units QHS SQ Last administered on 11/13/18at 21:31 ; Start 11/09/18 at 21:00 Guaifenesin/ Codeine Phosphate (Robitussin Ac) 5 ml PRN Q6HRS PRN PO COUGH Last administered on 11/11/18at 21:21; Start 11/09/18 at 13:00 Ondansetron HCl (Zofran) 4 mg PRN Q6HRS PRN IV NAUSEA/VOMITING Last administered on 11/09/18at 19:51; Start 11/09/18 at 19:30 Sodium Chloride 1,000 ml @ 1,000 mls/hr Q1H PRN IV hypotension; Start 11/10/18 at 11:53; Stop 11/10/18 at 17:52; Status DC Sodium Chloride 1,000 ml @ 400 mls/hr Q2H30M PRN IV PATENCY; Start 11/10/18 at 11:53; Stop 11/10/18 at 23:52; Status DC Info (PHARMACY MONITORING -- do not chart) 1 each PRN DAILY PRN MC SEE COMMENTS ; Start 11/10/18 at 12:00 Fluticasone Propionate (Flonase) 2 spray DAILY NS ; Start 11/12/18 at 09:00; Status UNV Prednisone (Prednisone) 60 mg DAILY PO Last administered on 11/12/18at 09:21; Start 11/12/18 at 09:00; Stop 11/13/18 at 13:16; Status DC Amoxicillin/ Clavulanate Potassium (Augmentin 875/ 125mg) 1 tab BID PO Last administered on 11/12/18at 09:25; Start 11/11/18 at 10:30; Stop 11/12/18 at 16:54 ; Status DC Pantoprazole Sodium (Protonix) 40 mg BIDAC PO Last administered on 11/14/18at 08 :15; Start 11/12/18 at 16:30 Amoxicillin/ Clavulanate Potassium (Augmentin 500/ 125mg) 1 tab DAILY PO Last administered on 11/13/18at 15:44; Start 11/13/18 at 09:00 Sodium Chloride 1,000 ml @ 1,000 mls/hr Q1H PRN IV hypotension; Start 11/13/18 at 10:27; Stop 11/13/18 at 16:27; Status DC Info (PHARMACY MONITORING -- do not chart) 1 each PRN DAILY PRN MC SEE COMMENTS ; Start 11/13/18 at 10:30; Status UNV Info (PHARMACY MONITORING -- do not chart) 1 each PRN DAILY PRN MC SEE COMMENTS ; Start 11/13/18 at 10:30; Status UNV Prednisone (Prednisone) 40 mg DAILY PO ; Start 11/14/18 at 09:00 Active Scripts Active Prednisone (Prednisone) 10 Mg Tablet 10 Mg PO DAILY 12 Days 4 pills daily for 3 days then 3 pills daily for 3 days then 2 pills daily for 3 days then 1 pill daily for 3 days. Augmentin 875-125 Tablet (Amoxicillin/Potassium Clav) 1 Each Tablet 1 Tab PO BID 7 Days [guaiFENesin/CODEINE 100mg/10mg] 5 ML Liquid 5 Ml PO PRN Q6HRS PRN Proair Respiclick (Albuterol Sulfate) 90 Mcg Aer.pow.ba 1 Puff IH PRN Q6HRS PRN Culturelle (Lactobacillus Rhamnosus Gg) 1 Each Cap.sprink 1 Cap PO BID 30 Days Combivent Respimat Inhal (Ipratropium/Albuterol Sulfate) 4 Gm Aer.w.adap 2 Inh IH QID 30 Days Labetalol Hcl 200 Mg Tablet 1 Tab PO DAILY 30 Days Children's Aspirin (Aspirin) 81 Mg Tab.chew 81 Mg PO DAILYWBKFT 30 Days Reported Omeprazole 40 Mg Capsule.dr 40 Mg PO DAILY Hydrocodone-Apap 5-325 (Hydrocodone Bit/Acetaminophen) 1 Each Tablet 1 Tab PO Q6HRS PRN Hydralazine Hcl 50 Mg Tablet 1 Tab PO TID Gabapentin (Gabapentin) 100 Mg Capsule 200 Mg PO BID Cetirizine Hcl 10 Mg Tablet 1 Tab PO DAILY Tylenol (Acetaminophen) 325 Mg Tablet 2 Tab PO PRN Q6HRS PRN Clonidine Hcl 0.1 Mg Tablet 0.1 Mg PO BID Alendronate Sodium 70 Mg Tablet 70 Mg PO Q2WKS Flonase Allergy Relief (Fluticasone Propionate) 9.9 Ml [place].susp 2 Sprays NS DAILY Calcium 600 + Vit D 400 Caplet (Calcium Carbonate/Vitamin D3) 1 Each Tablet 1 Each PO DAILY Renvela (Sevelamer Carbonate) 800 Mg Tablet 2 Tab PO [id number] Norvasc (Amlodipine Besylate) 10 Mg Tablet 10 Mg PO DAILY Windy-Abby Rx Tablet (Vit B Cmplx 3/Fa/Vit C/Biotin) 1 Each Tablet 1 Each PO DAILY Vitals/I & O Vital Sign - Last 24 Hours 11/13/18 11/13/18 11/13/18 11/13/18 08:33 15:00 15:45 15:45 Temp 97.8 97.8 Pulse 86 73 73 Resp 18 B/P (MAP) 133/50 (77) 138/58 138/58 Pulse Ox 98 91 O2 Delivery Room Air Room Air 11/13/18 11/13/18 11/13/18 11/13/18 16:12 19:35 20:00 21:00 Temp 99.1 99.1 Pulse 79 75 Resp 18 B/P (MAP) 121/57 (78) 118/76 Pulse Ox 98 92 O2 Delivery Room Air Room Air Room Air 11/13/18 11/13/18 11/13/18 11/14/18 21:23 21:23 23:43 03:29 Temp 98.1 98.3 98.1 98.3 Pulse 79 75 83 Resp 16 16 B/P (MAP) 121/57 118/76 (90) 144/57 (86) Pulse Ox 98 91 90 O2 Delivery Room Air Room Air Room Air 11/14/18 11/14/18 07:00 07:46 Temp 98.1 98.1 Pulse 77 Resp 20 B/P (MAP) 147/57 (87) Pulse Ox 91 93 O2 Delivery Room Air Room Air Intake and Output 11/13/18 11/13/18 11/14/18 15:01 23:01 07:01 Intake Total 640 ml 340 ml Balance 640 ml 340 ml ARELI MATIAS MD Nov 14, 2018 08:32
[2018-11-14] MEDS: CALCIUM CARB/VIT D3 500/200 TABLET. PO SCH (08:33)
[2018-11-14] MEDS: LACTOBACILLUS RHAMNOSUS GG 1 CAPSULE. PO SCH (08:33)
[2018-11-14] MEDS: amLODIPine BESYLATE 10 MG TABLET PO SCH (08:33)
[2018-11-14] MEDS: LABETALOL HCL 200 MG TABLET PO SCH (08:34)
[2018-11-14] MEDS: CETIRIZINE HCL 10 MG TABLET. PO SCH (08:34)
[2018-11-14 08:35] VITALS: BP 147/57
[2018-11-14] MEDS: cloNIDine HCL 0.1 MG TABLET PO SCH (08:35)
--- NOTE | 2018-11-14 08:53 | PDOC ---
PULMONARY PROGRESS NOTES Subjective not more soa no more emesis Vitals Vital Signs Date Time Temp Pulse Resp B/P (MAP) Pulse Ox O2 Delivery O2 Flow Rate FiO2 11/14/18 08:35 77 147/57 11/14/18 08:00 Room Air 11/14/18 07:46 93 11/14/18 07:00 98.1 20 98.1 ROS: No Nausea, No Chest Pain General: Alert, No acute distress Lungs: Crackles Cardiovascular: S1, S2 Abdomen: Soft, Non-tender Neuro Exam: Alert, Oriented Extremities: No Edema Skin: Warm Labs Laboratory Tests Test 11/12/18 12:00 11/12/18 16:58 11/12/18 20:28 11/13/18 04:00 Glucose (Fingerstick) 130 mg/dL (70-99) 199 mg/dL (70-99) 229 mg/dL (70-99) White Blood Count 8.5 x10^3/uL (4.0-11.0) Red Blood Count 3.07 x10^6/uL (3.50-5.40) Hemoglobin 10.1 g/dL (12.0-15.5) Hematocrit 30.9 % (36.0-47.0) Mean Corpuscular Volume 101 fL (79-100) Mean Corpuscular Hemoglobin 33 pg (25-35) Mean Corpuscular Hemoglobin Concent 33 g/dL (31-37) Red Cell Distribution Width 15.5 % (11.5-14.5) Platelet Count 173 x10^3/uL (140-400) Sodium Level 136 mmol/L (136-145) Potassium Level 6.0 mmol/L (3.5-5.1) Chloride Level 99 mmol/L (98-107) Carbon Dioxide Level 26 mmol/L (21-32) Anion Gap 11 (6-14) Blood Urea Nitrogen 72 mg/dL (7-20) Creatinine 6.5 mg/dL (0.6-1.0) Estimated GFR (Cockcroft-Gault) 6.3 Glucose Level 290 mg/dL (70-99) Calcium Level 8.3 mg/dL (8.5-10.1) Test 11/13/18 07:11 11/13/18 17:01 11/13/18 20:46 11/14/18 07:19 Glucose (Fingerstick) 252 mg/dL (70-99) 218 mg/dL (70-99) 165 mg/dL (70-99) 229 mg/dL (70-99) Laboratory Tests Test 11/13/18 17:01 11/13/18 20:46 11/14/18 07:19 Glucose (Fingerstick) 218 mg/dL (70-99) 165 mg/dL (70-99) 229 mg/dL (70-99) Medications Active Scripts Medications Dose Route/Sig Max Daily Dose Days Date Category Proair Respiclick (Albuterol Sulfate) 90 Mcg Aer.pow.ba 1 Puff IH PRN Q6HRS PRN 04/10/18 Rx Culturelle (Lactobacillus Rhamnosus Gg) 1 Each Cap.sprink 1 Cap PO BID 30 12/15/17 Rx Combivent Respimat Inhal (Ipratropium/Albuterol Sulfate) 4 Gm Aer.w.adap 2 Inh IH QID 30 09/02/17 Rx Labetalol Hcl 200 Mg Tablet 1 Tab PO DAILY 30 09/02/17 Rx Omeprazole 40 Mg Capsule.dr 40 Mg PO DAILY 09/01/17 Reported Hydrocodone-Apap 5-325 (Hydrocodone Bit/Acetaminophen) 1 Each Tablet 1 Tab PO Q6HRS PRN 09/01/17 Reported Hydralazine Hcl 50 Mg Tablet 1 Tab PO TID 04/08/17 Reported Gabapentin (Gabapentin) 100 Mg Capsule 200 Mg PO BID 04/08/17 Reported Cetirizine Hcl 10 Mg Tablet 1 Tab PO DAILY 10/29/16 Reported Tylenol (Acetaminophen) 325 Mg Tablet 2 Tab PO PRN Q6HRS PRN 10/29/16 Reported Clonidine Hcl 0.1 Mg Tablet 0.1 Mg PO BID 09/17/16 Reported Alendronate Sodium 70 Mg Tablet 70 Mg PO Q2WKS 09/17/16 Reported Flonase Allergy Relief (Fluticasone Propionate) 9.9 Ml [place].susp 2 Sprays NS DAILY 09/17/16 Reported Children's Aspirin (Aspirin) 81 Mg Tab.chew 81 Mg PO DAILYWBKFT 30 11/04/15 Rx Calcium 600 + Vit D 400 Caplet (Calcium Carbonate/Vitamin D3) 1 Each Tablet 1 Each PO DAILY 10/24/15 Reported Renvela (Sevelamer Carbonate) 800 Mg Tablet 2 Tab PO [id number] 3/7/15 Reported Norvasc (Amlodipine Besylate) 10 Mg Tablet 10 Mg PO DAILY 11/11/13 Reported Windy-Abby Rx Tablet (Vit B Cmplx 3/Fa/Vit C/Biotin) 1 Each Tablet 1 Each PO DAILY 11/11/13 Reported Impression . 1. Acute hypoxic respiratory failure secondary to likely interstitial pneumonia. She has a cough with yellow sputum production and had a fever of 102 at home I suspect gram-negative pneumonia. clinically improved 2. End-stage renal disease, on hemodialysis. 3. No history of tobacco use. 4. Mild leukocytosis present on admission, resolved. 5. Influenza screen negative. 6. allergic rhinitis 7. GERD Plan . IMPROVING HOME SOON OK BY ME ORAL AUGMENTIN AND STEROID TAPER TAMI RAMIREZ MD Nov 14, 2018 08:53
[2018-11-14] MEDS ORDERED: predniSONE 20 MG TABLET PO SCH (09:00)
--- NOTE | 2018-11-14 13:59 | NUR ---
Discharge Note: ROBBIN LYNN [address] Discharge instructions and discharge home medications reviewed with Patient and a copy given. All questions have been answered and understanding verbalized. The following instructions and handouts were given: follow up instructions, prescriptions for augmentin, prednisone, guaifenesin with codeine. Discontinued lines and drains: no iv present. Patient discharged to home with self care via family.
--- NOTE | 2018-11-15 09:30 | DS ---
DATE OF DISCHARGE: 11/14/2018 ADDENDUM. The patient did not go home on 11/12/2018 as ordered. On that day, she had one episode of a small amount of emesis that contained some bright red blood. So, her discharge was held. Her symptoms quickly resolved and did not reoccur. She had no further emesis or nausea and was taking her meals with a good appetite. She was discharged home on 11/14/2018. Discharge diagnoses and medications remain unchanged from the previous discharge summary. ARELI MATIAS MD DR: EVONNE/ronaldo JOB#: [id number] / [id number]
[2018-11-19] MEDS ORDERED: NON FORMULARY ITEM (Alendronate Sodium 70 MG) PO SCH (09:00)
[2018-12-05] MEDS ORDERED: INSU100C4 SQ (19:58)
[2018-12-05] MEDS ORDERED: INSU100V8 SQ (19:58)
[2018-12-08] MEDS ORDERED: DOXY100C2 PO (09:14)
[2018-12-08] MEDS ORDERED: PRED-220 PO (09:14)
[2019-01-09] MEDS ORDERED: INSU100C4 SQ (08:39)
[2019-01-12] MEDS ORDERED: PRED20TA PO (08:57)
[2019-01-12] MEDS ORDERED: INSU100V8 SQ (08:57)
[2019-01-12] MEDS ORDERED: INSU100C4 SQ (08:57)
[2019-02-23] MEDS ORDERED: INSU100V8 SQ (08:47)
[2019-04-03] MEDS ORDERED: PRED20TA PO (08:12)
== END 2018-11-14 14:00 | disposition home or self-care (01) | DRG 177 ==
LOC: ER 10:57 → 6 SOUTH 13:00 → OBSVTOIN 11-06 13:43
PROVIDERS: ADMIT Family Medicine; ATTEND Family Medicine
PROC: 5A1D70Z Performance of Urinary Filtration, Intermittent, Less than 6 Hours Per Day (ICD-10-PCS; principal; 2018-11-06)
PROC: 5A1D70Z Performance of Urinary Filtration, Intermittent, Less than 6 Hours Per Day (ICD-10-PCS; 2018-11-10)
PROC: 5A1D70Z Performance of Urinary Filtration, Intermittent, Less than 6 Hours Per Day (ICD-10-PCS; 2018-11-13)
DX: J15.6 Pneumonia due to other Gram-negative bacteria (principal); J96.01 Acute respiratory failure with hypoxia; N18.6 End stage renal disease; I13.2 Hypertensive heart and chronic kidney disease with heart failure and with stage 5 chronic kidney disease, or end stage renal disease; E11.42 Type 2 diabetes mellitus with diabetic polyneuropathy; I50.9 Heart failure, unspecified; D64.9 Anemia, unspecified; E11.22 Type 2 diabetes mellitus with diabetic chronic kidney disease; M81.0 Age-related osteoporosis without current pathological fracture; M19.90 Unspecified osteoarthritis, unspecified site; I25.10 Atherosclerotic heart disease of native coronary artery without angina pectoris; G89.29 Other chronic pain; M54.9 Dorsalgia, unspecified; K21.9 Gastro-esophageal reflux disease without esophagitis; F32.9 Major depressive disorder, single episode, unspecified; E21.3 Hyperparathyroidism, unspecified; T38.0X5A Adverse effect of glucocorticoids and synthetic analogues, initial encounter; E78.5 Hyperlipidemia, unspecified; J30.9 Allergic rhinitis, unspecified; Z86.19 Personal history of other infectious and parasitic diseases; Z90.710 Acquired absence of both cervix and uterus; Z98.51 Tubal ligation status; Z99.2 Dependence on renal dialysis; Z79.4 Long term (current) use of insulin; Z79.899 Other long term (current) drug therapy; Z86.73 Personal history of transient ischemic attack (TIA), and cerebral infarction without residual deficits; Z83.3 Family history of diabetes mellitus; Z82.3 Family history of stroke; Z82.49 Family history of ischemic heart disease and other diseases of the circulatory system; Y92.89 Other specified places as the place of occurrence of the external cause
CPT/HCPCS: 36415; 71045; 80048; 80202; 82962; 83605; 84484; 85007; 85025; 85027; 85610; 85730; 87804; 93005; 94640; 94760; G0378; G0379; J0881; J1815; J2405; J2543; J2920; J2930; J3370; J7040; J7042; J7512; J7620; 97530; 99285-25

== ENCOUNTER 2018-12-16 13:15 | Inpatient (IN) | payer OTHER ==
[~2018-12-16] VITALS: Ht 157.5 cm; Wt 58.3 kg
[~2018-12-16 13:15] MED LIST changes: +DOXY100C2 PO; +INSU100C4 SQ; +INSU100V8 SQ; +guaiFENesin/CODEINE 100mg/10mg PO
[2018-12-16] MEDS ORDERED: ALBUTEROL SULFATE 2.5 MG/3 ML NEBU. CONT NEB ONE (13:30)
[2018-12-16 13:39] LABS: BASO # 0.1 x10^3/uL (0.0-0.2); BASO % 1 % (0-3); EOS % 0 % (0-3); HEMATOCRIT 31.7 % (36.0-47.0); HEMOGLOBIN 10.3 g/dL (12.0-15.5); LYMPH # 1.7 x10^3/uL (1.0-4.8); LYMPH % 10 % (24-48); MEAN CORPUSCULAR HEMOGLOBIN 32 pg (25-35); MEAN CORPUSCULAR HGB CONC 33 g/dL (31-37); MEAN CORPUSCULAR VOLUME 99 fL (79-100); MONO # 1.1 x10^3/uL (0.0-1.1); MONO % 6 % (0-9); NEUT # 13.9 x10^3uL (1.8-7.7); NEUT % 83 % (31-73); PLATELET COUNT 165 x10^3/uL (140-400); RED BLOOD COUNT 3.19 x10^6/uL (3.50-5.40); RED CELL DISTRIBUTION WIDTH 16.6 % (11.5-14.5); WHITE BLOOD COUNT 16.8 x10^3/uL (4.0-11.0)
[2018-12-16] MEDS ORDERED: ACETAMINOPHEN 500 MG TABLET PO ONE (13:45)
[2018-12-16 13:54] LABS: CALCIUM 7.9 mg/dL (8.5-10.1); CREATININE 5.2 mg/dL (0.6-1.0); GFR 8.2; POTASSIUM 4.4 mmol/L (3.5-5.1)
[2018-12-16 13:57] LABS: BASE EXCESS ABG 2 mmol/L (-3-3); CORRECTED PCO2 ABG 46 mmHg; CORRECTED PH ABG 7.39; CORRECTED PO2 ABG 78 mmHg; HCO3 ABG 27 mmol/L (21-28); PCO2 ABG 42 mmHg (35-46); PO2 ABG 69 mmHg (65-108); SAT O2 ABG 93 % (92-99)
[2018-12-16 14:00] LABS: ALBUMIN 2.8 g/dL (3.4-5.0); ALBUMIN/GLOBULIN RATIO 0.8 (1.0-1.7); TOTAL BILIRUBIN 0.6 mg/dL (0.2-1.0); TOTAL PROTEIN 6.2 g/dL (6.4-8.2)
[2018-12-16 14:12] LABS: % ATYL 2 % (0-0); % BANDS 4 % (0-9); % LYMPHS 7 % (24-48); % METAS 1 % (0-0); % MONOS 4 % (0-10); % SEGS 82 % (35-66); ANISOCYTOSIS SLIGHT; PLT ESTIMATE ADEQUATE (ADEQUATE); POLYCHROMASIA SLIGHT
--- NOTE | 2018-12-16 14:21 | RAD ---
CHEST AP ONLY Clinical History: SHORT OF AIR, HX OF PNEUMONIA, Technique: AP view of the chest was obtained at 12/16/2018 1:20 PM. Comparison: December 07, 2018. Findings: The heart is borderline enlarged. The pulmonary vasculature is normal. There is patchy opacity in the lower left lung. There is blunting of the right costophrenic angle. Impression: 1. Persistent left basal infiltrate. 2. Tiny right pleural effusion. Electronically signed by: Chato Rodríguez III, MD (12/16/2018 2:18 PM) [facility]
--- NOTE | 2018-12-16 14:52 | PHYS DOC ---
Past Medical History Past Medical History: Bronchitis, Diabetes-Type II, Hypertension, Pneumonia, Renal Failure, Other Additional Past Medical Histor: c diff,drop foot syndrome Past Surgical History: , Hysterectomy, Tonsillectomy, Tubal ligation, Other Additional Past Surgical Histo: bilat rotator cuff;dialysis shunt left forearm, L ANKLE ORIF Alcohol Use: None Drug Use: None Adult General Chief Complaint Chief Complaint: FEVER HPI HPI Patient is a 68 year old female who presents with shortness of breath. The patient denies current pain. She states that she has been short of air. The patient was diagnosed with pneumonia she states approximately 1 month ago. She is a very poor historian and is not sure of the medication that she was given to treat her pneumonia. She denies chest pain, diaphoresis, nausea or vomiting. She has been febrile at home. Review of Systems Review of Systems Constitutional: See history of present illness Eyes: Denies change in visual acuity, redness, or eye pain [] HENT: Denies nasal congestion or sore throat [] Respiratory: See history of present illness Cardiovascular: No additional information not addressed in HPI [] GI: Denies abdominal pain, nausea, vomiting, bloody stools or diarrhea [] : Denies dysuria or hematuria [] Musculoskeletal: Denies back pain or joint pain [] Integument: Denies rash or skin lesions [] Neurologic: Denies headache, focal weakness or sensory changes [] Endocrine: Denies polyuria or polydipsia [] All other systems were reviewed and found to be within normal limits, except as documented in this note. Current Medications Current Medications Current Medications Medications (Trade) Dose Ordered Sig/Bill Start Time Stop Time Status Last Admin Dose Admin Acetaminophen (Tylenol) 1,000 mg 1X ONCE 12/16/18 13:45 12/16/18 13:47 DC 12/16/18 13:52 1,000 MG Albuterol Sulfate (Ventolin Neb Soln) 10 mg 1X ONCE 12/16/18 13:30 12/16/18 13:31 DC 12/16/18 13:39 10 MG Allergies Allergies Allergies Coded Allergies Type Severity Reaction Last Updated Verified No Known Drug Allergies 12/13/17 No Physical Exam Physical Exam Constitutional: Well developed, well nourished, no acute distress, ill appearing. [] HENT: Normocephalic, atraumatic, bilateral external ears normal, oropharynx moist, no oral exudates, nose normal. [] Eyes: PERRLA, EOMI, conjunctiva normal, no discharge. [] Neck: Normal range of motion, no tenderness, supple, no stridor. [] Cardiovascular:Heart rate regular rhythm, no murmur [] Lungs & Thorax: Bilateral breath sounds decreased throughout Abdomen: Bowel sounds normal, soft, no tenderness, no masses, no pulsatile masses. [] Skin: Warm, dry, no erythema, no rash. [] Back: No tenderness, no CVA tenderness. [] Extremities: No tenderness, no cyanosis, no clubbing, ROM intact, no edema. [] Neurologic: Alert and oriented X 3, normal motor function, normal sensory function, no focal deficits noted. [] Psychologic: Affect normal, judgement normal, mood normal. [] Current Patient Data Vital Signs Vital Signs Date Time Temp Pulse Resp B/P (MAP) Pulse Ox O2 Delivery O2 Flow Rate FiO2 12/16/18 14:30 102 20 166/70 (102) 94 Nasal Cannula 2.0 12/16/18 13:17 101.8 101.8 Lab Values Laboratory Tests Test 12/16/18 13:25 12/16/18 13:45 White Blood Count 16.8 x10^3/uL (4.0-11.0) H Red Blood Count 3.19 x10^6/uL (3.50-5.40) L Hemoglobin 10.3 g/dL (12.0-15.5) L Hematocrit 31.7 % (36.0-47.0) L Mean Corpuscular Volume 99 fL (79-100) Mean Corpuscular Hemoglobin 32 pg (25-35) Mean Corpuscular Hemoglobin Concent 33 g/dL (31-37) Red Cell Distribution Width 16.6 % (11.5-14.5) H Platelet Count 165 x10^3/uL (140-400) Neutrophils (%) (Auto) 83 % (31-73) H Lymphocytes (%) (Auto) 10 % (24-48) L Monocytes (%) (Auto) 6 % (0-9) Eosinophils (%) (Auto) 0 % (0-3) Basophils (%) (Auto) 1 % (0-3) Neutrophils # (Auto) 13.9 x10^3uL (1.8-7.7) H Lymphocytes # (Auto) 1.7 x10^3/uL (1.0-4.8) Monocytes # (Auto) 1.1 x10^3/uL (0.0-1.1) Eosinophils # (Auto) 0.0 x10^3/uL (0.0-0.7) Basophils # (Auto) 0.1 x10^3/uL (0.0-0.2) Segmented Neutrophils % 82 % (35-66) H Band Neutrophils % 4 % (0-9) Lymphocytes % 7 % (24-48) L Atypical Lymphocytes % (Manual) 2 % (0-0) H Monocytes % 4 % (0-10) Metamyelocytes % 1 % (0-0) H Platelet Estimate Adequate (ADEQUATE) Giant Platelets Occ Polychromasia Slight Anisocytosis Slight Sodium Level 141 mmol/L (136-145) Potassium Level 4.4 mmol/L (3.5-5.1) Chloride Level 101 mmol/L (98-107) Carbon Dioxide Level 28 mmol/L (21-32) Anion Gap 12 (6-14) Blood Urea Nitrogen 39 mg/dL (7-20) H Creatinine 5.2 mg/dL (0.6-1.0) H Estimated GFR (Cockcroft-Gault) 8.2 BUN/Creatinine Ratio 8 (6-20) Glucose Level 215 mg/dL (70-99) H Lactic Acid Level 1.2 mmol/L (0.4-2.0) Calcium Level 7.9 mg/dL (8.5-10.1) L Total Bilirubin 0.6 mg/dL (0.2-1.0) Aspartate Amino Transferase (AST) 28 U/L (15-37) Alanine Aminotransferase (ALT) 25 U/L (14-59) Alkaline Phosphatase 177 U/L (46-116) H Total Protein 6.2 g/dL (6.4-8.2) L Albumin 2.8 g/dL (3.4-5.0) L Albumin/Globulin Ratio 0.8 (1.0-1.7) L O2 Saturation 93 % (92-99) Arterial Blood pH 7.42 (7.35-7.45) Arterial Blood pH (Temp corrected) 7.39 Arterial Blood pCO2 at Patient Temp 42 mmHg (35-46) Arterial Blood pCO2 (Temp correct) 46 mmHg Arterial Blood pO2 at Patient Temp 69 mmHg (65-108) Arterial Blood pO2 (Temp corrected) 78 mmHg Arterial Blood HCO3 27 mmol/L (21-28) Arterial Blood Base Excess 2 mmol/L (-3-3) FiO2 2 lpm nc Laboratory Tests 12/16/18 13:25 Laboratory Tests 12/16/18 13:25 EKG EKG [] Radiology/Procedures Radiology/Procedures [] Course & Med Decision Making Course & Med Decision Making Pertinent Labs and Imaging studies reviewed. (See chart for details) []The patient has an elevated white count and is still positive for pneumonia on chest x-ray. She has been febrile in the emergency department. She will be admitted to Dr. Starkey's service for further evaluation and treatment. Nephrology has been consulted in the care of this patient. Dragon Disclaimer Dragon Disclaimer This electronic medical record was generated, in whole or in part, using a voice recognition dictation system. Departure Departure Impression: Primary Impression: Pneumonia Disposition: ADMITTED INPATIENT Admitting Physician: Konrad Starkey Condition: GOOD Referrals: ARELI MATIAS MD (PCP) MERRILL RIOS APRN Dec 16, 2018 14:52
[2018-12-16] MEDS ORDERED: fentaNYL PF VIAL 100 MCG/2 ML VIAL IV PRN (15:00)
[2018-12-16] MEDS ORDERED: ONDANSETRON PF 4 MG/2 ML VIAL. IV PRN (15:00)
[2018-12-16] MEDS ORDERED: levOFLOXacin PER PHARMACY. MC PRN (15:00)
[2018-12-16] MEDS ORDERED: IPRATRPIUM/ALBUTEROL 0.5/2.5MG 3 ML NEBU. NEB SCH (16:00)
[2018-12-16] MEDS ORDERED: CODEINE PO PRN (16:30)
[2018-12-16] MEDS ORDERED: GUAIFENESIN PO PRN (16:30)
[2018-12-16] MEDS ORDERED: ALBUTEROL SULFATE 2.5 MG/3 ML NEBU. NEB PRN (16:45)
[2018-12-16] MEDS ORDERED: DEXTROSE 50% 25 GM / 50ML DISP.SYRIN. IV PRN (16:45)
[2018-12-16] MEDS: SEVELAMER CARBONATE 800 MG TABLET. PO SCH (17:21)
[2018-12-16] MEDS: INSULIN LISPRO 300 UNITS/3 ML INSULN.PEN. SQ SCH (17:24)
[2018-12-16] MEDS: IPRATRPIUM/ALBUTEROL 0.5/2.5MG 3 ML NEBU. NEB SCH (19:05)
[2018-12-16 19:52] VITALS: BP 151/51
[2018-12-16] MEDS: LACTOBACILLUS RHAMNOSUS GG 1 CAPSULE. PO SCH (21:01)
[2018-12-16] MEDS: GABAPENTIN 100 MG CAPSULE. PO SCH (21:02)
[2018-12-16] MEDS: cloNIDine HCL 0.1 MG TABLET PO SCH (21:02)
[2018-12-16] MEDS: INSULIN GLARGINE 300 UNITS/3 ML INSULN.PEN. SQ SCH (21:10)
[2018-12-16 23:54] VITALS: BP 147/61
[2018-12-17 03:36] VITALS: BP 157/62
[2018-12-17 05:41] LABS: HEMATOCRIT 29.5 % (36.0-47.0); HEMOGLOBIN 9.8 g/dL (12.0-15.5); LYMPH % 8 % (24-48); MEAN CORPUSCULAR HEMOGLOBIN 33 pg (25-35); MEAN CORPUSCULAR HGB CONC 33 g/dL (31-37); MEAN CORPUSCULAR VOLUME 99 fL (79-100); NEUT % 85 % (31-73); PLATELET COUNT 141 x10^3/uL (140-400); RED BLOOD COUNT 2.99 x10^6/uL (3.50-5.40); RED CELL DISTRIBUTION WIDTH 16.8 % (11.5-14.5); WHITE BLOOD COUNT 15.4 x10^3/uL (4.0-11.0)
[2018-12-17 05:42] LABS: BASO % 0 % (0-3); EOS # 0.1 x10^3/uL (0.0-0.7); EOS % 0 % (0-3); LYMPH # 1.2 x10^3/uL (1.0-4.8); MONO % 6 % (0-9); NEUT # 13.1 x10^3uL (1.8-7.7)
[2018-12-17] MEDS: SEVELAMER CARBONATE 800 MG TABLET. PO SCH ×3 (05:50→17:10)
[2018-12-17 06:15] LABS: CALCIUM 8.1 mg/dL (8.5-10.1); CREATININE 6.7 mg/dL (0.6-1.0); GFR 6.1
[2018-12-17] MEDS: IPRATRPIUM/ALBUTEROL 0.5/2.5MG 3 ML NEBU. NEB SCH ×4 (07:30→21:07)
[2018-12-17 07:46] VITALS: BP 165/68
--- NOTE | 2018-12-17 07:54 | EKG ---
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
[2018-12-17] MEDS: LABETALOL HCL 200 MG TABLET PO SCH (08:25)
[2018-12-17] MEDS: FOLIC/VIT B COMP W-C (RENAL) TABLET. PO SCH (08:25)
[2018-12-17] MEDS: cloNIDine HCL 0.1 MG TABLET PO SCH ×2 (08:25→21:00)
[2018-12-17] MEDS: GABAPENTIN 100 MG CAPSULE. PO SCH ×2 (08:26→21:41)
[2018-12-17] MEDS: LACTOBACILLUS RHAMNOSUS GG 1 CAPSULE. PO SCH ×2 (08:26→21:43)
[2018-12-17] MEDS: CALCIUM CARB/VIT D3 500/200 TABLET. PO SCH (08:26)
[2018-12-17] MEDS: ACETAMINOPHEN 325 MG TABLET. PO PRN (08:26)
[2018-12-17] MEDS: PANTOPRAZOLE 40 MG TABLET.DR. PO SCH (08:26)
[2018-12-17] MEDS: amLODIPine BESYLATE 10 MG TABLET PO SCH (08:26)
[2018-12-17] MEDS: ASPIRIN CHEWABLE 81 MG TABLET. PO SCH (08:26)
[2018-12-17] MEDS: CETIRIZINE HCL 10 MG TABLET. PO SCH (08:27)
[2018-12-17] MEDS: INSULIN LISPRO 300 UNITS/3 ML INSULN.PEN. SQ SCH ×3 (08:35→17:15)
[2018-12-17] MEDS: FLUTICASONE 50MCG/NASAL SPRAY 16GM BOTTLE. NS SCH (09:00)
[2018-12-17] MEDS ORDERED: ZOLPIDEM 5 MG TABLET. PO PRN (09:30)
--- NOTE | 2018-12-17 09:35 | PDOC1 ---
History and Physical Date of Admission Date of Admission 12/16/18 Identification/Chief Complaint Chief Complaint Fevers, shakes Source Source: Patient History of Present Illness History of Present Illness Pt was most recently discharged 12/08/18. Pt states that she had been doing well. Tuesday she was feeling weak and had to have her daughter help get her to dialysis. Yesterday she had a 103F fever. She has had the shakes for the past 3 days. She has a runny nose with clear drainage. she has a sore throat and non productive cough. She has been in and out of the hospital for pneumonia. She has body aches. She has had pain in both of her hands but more so on the left. 3 days of frequent stools but she says it seems to have gone back to normal yesterday. Past Medical History Cardiovascular: CAD, CHF, HTN, Hyperlipidemia Pulmonary: Pneumonia CENTRAL NERVOUS SYSTEM: Periperal neuropathy, TIA GI: GERD Heme/Onc: Anemia NOS Hepatobiliary: Cholelithiasis Psych: Depression Rheumatologic: No pertinent hx Infectious disease: No pertinent hx ENT: No pertinent hx Renal/: Chronic renal failure, UTI, Other Endocrine: Diabetes, Hyperparathyroidism Dermatology: No pertinent hx Past Surgical History Past Surgical History: Arthroscopy, Cholecystectomy, , Tonsillectomy, Hysterectomy, Other Family History Family History: Cancer, Diabetes, Hypertension, Stroke Social History Smoke: No ALCOHOL: none Drugs: None Current Medications Current Medications Current Medications Medications (Trade) Dose Ordered Sig/Bill Start Time Stop Time Status Last Admin Dose Admin Acetaminophen (Tylenol) 650 mg PRN Q6HRS PRN 12/16/18 16:30 12/17/18 08:26 650 MG Acetaminophen/ Hydrocodone Bitart (Lortab 5/325) 1 tab PRN Q6HRS PRN 12/16/18 16:30 Albuterol Sulfate (Ventolin Neb Soln) 2.5 mg PRN Q6HRS PRN 12/16/18 16:45 Albuterol/ Ipratropium (Duoneb) 3 ml RTQID 12/16/18 20:00 12/17/18 07:30 3 ML Amlodipine Besylate (Norvasc) 10 mg DAILY 12/17/18 09:00 12/17/18 08:26 10 MG Aspirin (Children'S Aspirin) 81 mg [id number] 12/17/18 08:00 12/17/18 08:26 81 MG Calcium/Vitamin D (Oscal D 500mg/ 200uts) 1 tab DAILY 12/17/18 09:00 12/17/18 08:26 1 TAB Cetirizine HCl (ZyrTEC) 10 mg DAILY 12/17/18 09:00 12/17/18 08:27 10 MG Clonidine HCl (Catapres) 0.1 mg BID 12/16/18 21:00 12/17/18 08:25 0.1 MG Dextrose (Dextrose 50%-Water Syringe) 12.5 gm PRN Q15MIN PRN 12/16/18 16:45 Fentanyl Citrate (Fentanyl 2ml Vial) 50 mcg PRN Q1HR PRN 12/16/18 15:00 12/17/18 14:59 Fluticasone Propionate (Flonase) 2 spray DAILY 12/17/18 09:00 Gabapentin (Neurontin) 200 mg BID 12/16/18 21:00 12/17/18 08:26 200 MG Hydralazine HCl (Apresoline) 50 mg TID 12/16/18 17:00 12/17/18 08:25 50 MG Insulin Glargine (Lantus) 7 units QHS 12/16/18 21:00 12/16/18 21:10 7 UNITS Insulin Human Lispro (HumaLOG) 0-5 UNITS TIDWMEALS 12/16/18 17:00 12/17/18 08:35 3 UNITS Labetalol HCl (Trandate) 200 mg DAILY 12/17/18 09:00 12/17/18 08:25 200 MG Lactobacillus Rhamnosus (Culturelle) 1 cap BID 12/16/18 21:00 12/17/18 08:26 1 CAP Levofloxacin/ Dextrose 100 ml @ 100 mls/hr Q48H 12/16/18 15:00 12/16/18 15:17 100 MLS/HR Levofloxacin/ Dextrose (Levaquin Per Pharmacy) 1 each PRN DAILY PRN 12/16/18 15:00 Non-Formulary Medication (Alendronate Sodium ) 70 mg Q2WKS 12/30/18 09:00 UNV Non-Formulary Medication ([guaiFENesin/ CODEINE 100mg/ 10mg] ) 5 ml PRN Q6HRS PRN 12/16/18 16:30 UNV Ondansetron HCl (Zofran) 4 mg PRN Q8HRS PRN 12/16/18 15:00 12/17/18 14:59 Pantoprazole Sodium (Protonix) 40 mg DAILYAC 12/17/18 07:30 12/17/18 08:26 40 MG Sevelamer Carbonate (Renvela) 1,600 mg [id number] 12/16/18 18:00 12/17/18 05:50 1,600 MG Vitamin B Complex/ Vitamin C (Windy-Abby) 1 tab DAILY 12/17/18 09:00 12/17/18 08:25 1 TAB Allergies Allergies Allergies Coded Allergies Type Severity Reaction Last Updated Verified No Known Drug Allergies 12/13/17 No ROS Review of System CONSTITUTIONAL: + fever, chills EYES: No recent changes SKIN: No rash or itching CARDIOVASCULAR: No chest pain, syncope, palpitations, or edema RESPIRATORY: Positive for intermittent SOB, non productive cough GASTROINTESTINAL: No vomiting or abdominal pain, +nausea NEUROLOGICAL: No headaches, +weakness ENDOCRINE: No heat intolerance GENITOURINARY: No urgency or frequency of urination MUSCULOSKELETAL: No back pain or joint pain LYMPHATICS: No enlarged lymph nodes PSYCHIATRIC: No anxiety or depression Physical Exam Physical Exam GEN.: No apparent distress. Alert and oriented. HEENT: Head is normocephalic, atraumatic NECK: Supple, no JVD, no TM LUNGS: Clear to auscultation, regular breathing rate and effort HEART: RRR, S1, S2 present. Peripheral pulses intact ABDOMEN: Soft, Positive bowel sounds, Tender throughout but mild EXTREMITIES: Without any cyanosis. NEUROLOGIC: Normal speech, normal tone PSYCHIATRIC: Normal affect, normal mood. SKIN: No ulcerations Vitals Vitals Vital Signs Date Time Temp Pulse Resp B/P (MAP) Pulse Ox O2 Delivery O2 Flow Rate FiO2 12/17/18 08:26 100 165/68 12/17/18 07:46 100.0 19 100 Nasal Cannula 2.0 100.0 Labs Labs Laboratory Tests Test 12/16/18 13:25 12/16/18 13:45 12/16/18 15:35 12/16/18 19:31 White Blood Count 16.8 x10^3/uL (4.0-11.0) Red Blood Count 3.19 x10^6/uL (3.50-5.40) Hemoglobin 10.3 g/dL (12.0-15.5) Hematocrit 31.7 % (36.0-47.0) Mean Corpuscular Volume 99 fL (79-100) Mean Corpuscular Hemoglobin 32 pg (25-35) Mean Corpuscular Hemoglobin Concent 33 g/dL (31-37) Red Cell Distribution Width 16.6 % (11.5-14.5) Platelet Count 165 x10^3/uL (140-400) Neutrophils (%) (Auto) 83 % (31-73) Lymphocytes (%) (Auto) 10 % (24-48) Monocytes (%) (Auto) 6 % (0-9) Eosinophils (%) (Auto) 0 % (0-3) Basophils (%) (Auto) 1 % (0-3) Neutrophils # (Auto) 13.9 x10^3uL (1.8-7.7) Lymphocytes # (Auto) 1.7 x10^3/uL (1.0-4.8) Monocytes # (Auto) 1.1 x10^3/uL (0.0-1.1) Eosinophils # (Auto) 0.0 x10^3/uL (0.0-0.7) Basophils # (Auto) 0.1 x10^3/uL (0.0-0.2) Segmented Neutrophils % 82 % (35-66) Band Neutrophils % 4 % (0-9) Lymphocytes % 7 % (24-48) Atypical Lymphocytes % (Manual) 2 % (0-0) Monocytes % 4 % (0-10) Metamyelocytes % 1 % (0-0) Platelet Estimate Adequate (ADEQUATE) Giant Platelets Occ Polychromasia Slight Anisocytosis Slight Sodium Level 141 mmol/L (136-145) Potassium Level 4.4 mmol/L (3.5-5.1) Chloride Level 101 mmol/L (98-107) Carbon Dioxide Level 28 mmol/L (21-32) Anion Gap 12 (6-14) Blood Urea Nitrogen 39 mg/dL (7-20) Creatinine 5.2 mg/dL (0.6-1.0) Estimated GFR (Cockcroft-Gault) 8.2 BUN/Creatinine Ratio 8 (6-20) Glucose Level 215 mg/dL (70-99) Lactic Acid Level 1.2 mmol/L (0.4-2.0) Calcium Level 7.9 mg/dL (8.5-10.1) Total Bilirubin 0.6 mg/dL (0.2-1.0) Aspartate Amino Transf (AST/SGOT) 28 U/L (15-37) Alanine Aminotransferase (ALT/SGPT) 25 U/L (14-59) Alkaline Phosphatase 177 U/L (46-116) Total Protein 6.2 g/dL (6.4-8.2) Albumin 2.8 g/dL (3.4-5.0) Albumin/Globulin Ratio 0.8 (1.0-1.7) O2 Saturation 93 % (92-99) Arterial Blood pH 7.42 (7.35-7.45) Arterial Blood pH (Temp corrected) 7.39 Arterial Blood pCO2 at Patient Temp 42 mmHg (35-46) Arterial Blood pCO2 (Temp correct) 46 mmHg Arterial Blood pO2 at Patient Temp 69 mmHg (65-108) Arterial Blood pO2 (Temp corrected) 78 mmHg Arterial Blood HCO3 27 mmol/L (21-28) Arterial Blood Base Excess 2 mmol/L (-3-3) FiO2 2 lpm nc Glucose (Fingerstick) 206 mg/dL (70-99) 271 mg/dL (70-99) Test 12/17/18 04:45 12/17/18 07:24 White Blood Count 15.4 x10^3/uL (4.0-11.0) Red Blood Count 2.99 x10^6/uL (3.50-5.40) Hemoglobin 9.8 g/dL (12.0-15.5) Hematocrit 29.5 % (36.0-47.0) Mean Corpuscular Volume 99 fL (79-100) Mean Corpuscular Hemoglobin 33 pg (25-35) Mean Corpuscular Hemoglobin Concent 33 g/dL (31-37) Red Cell Distribution Width 16.8 % (11.5-14.5) Platelet Count 141 x10^3/uL (140-400) Neutrophils (%) (Auto) 85 % (31-73) Lymphocytes (%) (Auto) 8 % (24-48) Monocytes (%) (Auto) 6 % (0-9) Eosinophils (%) (Auto) 0 % (0-3) Basophils (%) (Auto) 0 % (0-3) Neutrophils # (Auto) 13.1 x10^3uL (1.8-7.7) Lymphocytes # (Auto) 1.2 x10^3/uL (1.0-4.8) Monocytes # (Auto) 1.0 x10^3/uL (0.0-1.1) Eosinophils # (Auto) 0.1 x10^3/uL (0.0-0.7) Basophils # (Auto) 0.0 x10^3/uL (0.0-0.2) Sodium Level 141 mmol/L (136-145) Potassium Level 4.0 mmol/L (3.5-5.1) Chloride Level 103 mmol/L (98-107) Carbon Dioxide Level 27 mmol/L (21-32) Anion Gap 11 (6-14) Blood Urea Nitrogen 54 mg/dL (7-20) Creatinine 6.7 mg/dL (0.6-1.0) Estimated GFR (Cockcroft-Gault) 6.1 Glucose Level 210 mg/dL (70-99) Calcium Level 8.1 mg/dL (8.5-10.1) Glucose (Fingerstick) 243 mg/dL (70-99) Laboratory Tests Test 12/16/18 13:25 12/16/18 13:45 12/16/18 15:35 12/16/18 19:31 White Blood Count 16.8 x10^3/uL (4.0-11.0) Red Blood Count 3.19 x10^6/uL (3.50-5.40) Hemoglobin 10.3 g/dL (12.0-15.5) Hematocrit 31.7 % (36.0-47.0) Mean Corpuscular Volume 99 fL (79-100) Mean Corpuscular Hemoglobin 32 pg (25-35) Mean Corpuscular Hemoglobin Concent 33 g/dL (31-37) Red Cell Distribution Width 16.6 % (11.5-14.5) Platelet Count 165 x10^3/uL (140-400) Neutrophils (%) (Auto) 83 % (31-73) Lymphocytes (%) (Auto) 10 % (24-48) Monocytes (%) (Auto) 6 % (0-9) Eosinophils (%) (Auto) 0 % (0-3) Basophils (%) (Auto) 1 % (0-3) Neutrophils # (Auto) 13.9 x10^3uL (1.8-7.7) Lymphocytes # (Auto) 1.7 x10^3/uL (1.0-4.8) Monocytes # (Auto) 1.1 x10^3/uL (0.0-1.1) Eosinophils # (Auto) 0.0 x10^3/uL (0.0-0.7) Basophils # (Auto) 0.1 x10^3/uL (0.0-0.2) Segmented Neutrophils % 82 % (35-66) Band Neutrophils % 4 % (0-9) Lymphocytes % 7 % (24-48) Atypical Lymphocytes % (Manual) 2 % (0-0) Monocytes % 4 % (0-10) Metamyelocytes % 1 % (0-0) Platelet Estimate Adequate (ADEQUATE) Giant Platelets Occ Polychromasia Slight Anisocytosis Slight Sodium Level 141 mmol/L (136-145) Potassium Level 4.4 mmol/L (3.5-5.1) Chloride Level 101 mmol/L (98-107) Carbon Dioxide Level 28 mmol/L (21-32) Anion Gap 12 (6-14) Blood Urea Nitrogen 39 mg/dL (7-20) Creatinine 5.2 mg/dL (0.6-1.0) Estimated GFR (Cockcroft-Gault) 8.2 BUN/Creatinine Ratio 8 (6-20) Glucose Level 215 mg/dL (70-99) Lactic Acid Level 1.2 mmol/L (0.4-2.0) Calcium Level 7.9 mg/dL (8.5-10.1) Total Bilirubin 0.6 mg/dL (0.2-1.0) Aspartate Amino Transf (AST/SGOT) 28 U/L (15-37) Alanine Aminotransferase (ALT/SGPT) 25 U/L (14-59) Alkaline Phosphatase 177 U/L (46-116) Total Protein 6.2 g/dL (6.4-8.2) Albumin 2.8 g/dL (3.4-5.0) Albumin/Globulin Ratio 0.8 (1.0-1.7) O2 Saturation 93 % (92-99) Arterial Blood pH 7.42 (7.35-7.45) Arterial Blood pH (Temp corrected) 7.39 Arterial Blood pCO2 at Patient Temp 42 mmHg (35-46) Arterial Blood pCO2 (Temp correct) 46 mmHg Arterial Blood pO2 at Patient Temp 69 mmHg (65-108) Arterial Blood pO2 (Temp corrected) 78 mmHg Arterial Blood HCO3 27 mmol/L (21-28) Arterial Blood Base Excess 2 mmol/L (-3-3) FiO2 2 lpm nc Glucose (Fingerstick) 206 mg/dL (70-99) 271 mg/dL (70-99) Test 12/17/18 04:45 12/17/18 07:24 White Blood Count 15.4 x10^3/uL (4.0-11.0) Red Blood Count 2.99 x10^6/uL (3.50-5.40) Hemoglobin 9.8 g/dL (12.0-15.5) Hematocrit 29.5 % (36.0-47.0) Mean Corpuscular Volume 99 fL (79-100) Mean Corpuscular Hemoglobin 33 pg (25-35) Mean Corpuscular Hemoglobin Concent 33 g/dL (31-37) Red Cell Distribution Width 16.8 % (11.5-14.5) Platelet Count 141 x10^3/uL (140-400) Neutrophils (%) (Auto) 85 % (31-73) Lymphocytes (%) (Auto) 8 % (24-48) Monocytes (%) (Auto) 6 % (0-9) Eosinophils (%) (Auto) 0 % (0-3) Basophils (%) (Auto) 0 % (0-3) Neutrophils # (Auto) 13.1 x10^3uL (1.8-7.7) Lymphocytes # (Auto) 1.2 x10^3/uL (1.0-4.8) Monocytes # (Auto) 1.0 x10^3/uL (0.0-1.1) Eosinophils # (Auto) 0.1 x10^3/uL (0.0-0.7) Basophils # (Auto) 0.0 x10^3/uL (0.0-0.2) Sodium Level 141 mmol/L (136-145) Potassium Level 4.0 mmol/L (3.5-5.1) Chloride Level 103 mmol/L (98-107) Carbon Dioxide Level 27 mmol/L (21-32) Anion Gap 11 (6-14) Blood Urea Nitrogen 54 mg/dL (7-20) Creatinine 6.7 mg/dL (0.6-1.0) Estimated GFR (Cockcroft-Gault) 6.1 Glucose Level 210 mg/dL (70-99) Calcium Level 8.1 mg/dL (8.5-10.1) Glucose (Fingerstick) 243 mg/dL (70-99) VTE Prophylaxis Ordered VTE Prophylaxis Devices: No VTE Pharmacological Prophylaxi: No Assessment/Plan Assessment/Plan Pt is a 68yoF admitted for fever 1)Fever- pt has had ongoing pneumonia. She currently is being treated with Levaquin. Pt's WBC has decreased from 16.8 to 15.4 since admission. Blood cultures pending. Flu pending. Stool have normalized but if she starts having more frequent stools, will plan on getting C diff. 2)ESRD- Renal consulted. Pt gets HD M/W/F. Electrolytes stable. 3)HTN- moderately controlled. currently receiving Norvasc 10mg, Labetalol 200mg BID, Clonidine 0.1mg BID and Hydralazine 50mg TID 4)DM2- BS normally controlled with diet but pt has been on steroids off and on over the past month. BS currently elevated. Pt has Lantus 7units and SSI ordered. RORY RANDALL MD Dec 17, 2018 09:34
[2018-12-17 10:14] LABS: INFLUENZA A PATIENT NEGATIVE (NEGATIVE); INFLUENZA B PATIENT NEGATIVE (NEGATIVE)
[2018-12-17 11:08] VITALS: BP 114/47
[2018-12-17 15:15] VITALS: BP 110/48
[2018-12-17 19:05] VITALS: BP 118/55
[2018-12-17] MEDS: INSULIN GLARGINE 300 UNITS/3 ML INSULN.PEN. SQ SCH (21:47)
[2018-12-17 23:05] VITALS: BP 123/88
--- NOTE | 2018-12-18 01:58 | CONS ---
DATE OF CONSULTATION: REQUESTING PHYSICIAN: Hospitalist. REASON FOR CONSULTATION: Renal failure. HISTORY OF PRESENT ILLNESS: A 68-year-old female recently discharged on 12/08/2018 and currently readmitted. She has end-stage renal disease in the setting of diabetic nephropathy and undergoes dialysis for the same. She now presents with febrile illness with upper respiratory symptoms. She will need ongoing management of dialysis as well as associated comorbidities associated with end-stage renal disease. PAST MEDICAL AND SURGICAL HISTORY: Diabetes mellitus; hypertension; end-stage renal disease, hemodialysis dependent; coronary artery disease; congestive cardiomyopathy; hyperlipidemia; pneumonia; peripheral neuropathy; TIA; GE reflux disease; cholelithiasis; anemia of chronic kidney disease; secondary hyperparathyroidism; renal disease; depression; arthroscopic; cholecystectomy; ; tonsillectomy; hysterectomy; vascular access placement. ALLERGIES: None. MEDICATIONS: Reviewed per med list. FAMILY HISTORY: Noncontributory. SOCIAL HISTORY: The patient resides with assistance. REVIEW OF SYSTEMS: No headache, sinus problem, nasal drainage, epistaxis, change in vision or hearing. No difficulty swallowing. She has had fever and chills and cough. No abdominal pain. No nausea, vomiting, diarrhea, seizures or malignancies. PHYSICAL EXAMINATION: GENERAL APPEARANCE: The patient awake, conversant. HEENT: Clear. NECK: No increased JVD. No thyromegaly, mass or adenopathy. LUNGS: Decreased breath sound at bases. CARDIAC: Without S3 or rub. ABDOMEN: Soft, nontender, no bruits. EXTREMITIES: Without edema. NEUROLOGIC: Nonfocal ____. PSYCHIATRIC: Fair attention to detail, appropriate affect. LABORATORY DATA: White count 16.8, hemoglobin 10.3, hematocrit 31.7, potassium 4, CO2 of 27, creatinine 6.7, GFR 6.1. IMPRESSION: 1. End-stage renal disease, hemodialysis-dependent, Tuesday, Tuesday and Tuesday. 2. Persistent pneumonia. 3. Anemia of chronic kidney disease. 4. Diabetes mellitus. RECOMMENDATIONS: 1. Ongoing dialysis on Tuesday, Tuesday and Tuesday. 2. Antibiotics and respiratory treatment as you are doing. 3. Epogen for anemia of chronic kidney disease. We will follow. MARQUITA PEMBERTON MD DR: FADI/ronaldo JOB#: [id number] / [id number]
[2018-12-18 03:05] VITALS: BP 148/47
[2018-12-18 04:18] LABS: BASO % 0 % (0-3); EOS # 0.1 x10^3/uL (0.0-0.7); EOS % 1 % (0-3); HEMATOCRIT 29.3 % (36.0-47.0); HEMOGLOBIN 9.4 g/dL (12.0-15.5); LYMPH # 1.4 x10^3/uL (1.0-4.8); LYMPH % 11 % (24-48); MEAN CORPUSCULAR HEMOGLOBIN 32 pg (25-35); MEAN CORPUSCULAR HGB CONC 32 g/dL (31-37); MEAN CORPUSCULAR VOLUME 100 fL (79-100); MONO # 0.9 x10^3/uL (0.0-1.1); MONO % 7 % (0-9); NEUT # 10.4 x10^3uL (1.8-7.7); NEUT % 81 % (31-73); PLATELET COUNT 132 x10^3/uL (140-400); RED BLOOD COUNT 2.93 x10^6/uL (3.50-5.40); RED CELL DISTRIBUTION WIDTH 17.3 % (11.5-14.5); WHITE BLOOD COUNT 12.9 x10^3/uL (4.0-11.0)
[2018-12-18 05:05] LABS: CALCIUM 7.9 mg/dL (8.5-10.1); CREATININE 8.1 mg/dL (0.6-1.0); GFR 4.9
[2018-12-18] MEDS: SEVELAMER CARBONATE 800 MG TABLET. PO SCH ×3 (06:06→17:30)
[2018-12-18 07:00] VITALS: BP 118/50
[2018-12-18] MEDS: PANTOPRAZOLE 40 MG TABLET.DR. PO SCH (07:30)
[2018-12-18] MEDS: IPRATRPIUM/ALBUTEROL 0.5/2.5MG 3 ML NEBU. NEB SCH ×4 (07:36→20:01)
[2018-12-18] MEDS: INSULIN LISPRO 300 UNITS/3 ML INSULN.PEN. SQ SCH ×3 (08:00→17:29)
[2018-12-18] MEDS: ASPIRIN CHEWABLE 81 MG TABLET. PO SCH (08:00)
--- NOTE | 2018-12-18 08:01 | PDOC ---
PROGRESS NOTES Subjective Subjective Patient feels a little better. Objective Objective Vital Signs Date Time Temp Pulse Resp B/P (MAP) Pulse Ox O2 Delivery O2 Flow Rate FiO2 12/18/18 07:37 97 Nasal Cannula 3.0 12/18/18 07:00 98.9 88 18 118/50 (72) 98.9 Intake and Output 12/18/18 06:59 Intake Total 1020 ml Output Total 0 ml Balance 1020 ml Intake Oral 1020 ml Output Urine Total 0 ml Physical Exam Abdomen: Normal bowel sounds, Soft, No tenderness Heart: Regular rate Extremities: No edema General: Alert, Oriented X3, No acute distress Lungs: Other (fine crackles bilateral bases, otherwise CTA) Plan Plan of Care 1. Recurrent atypical pneumonia - fever improving, negative for influenza. Will consult ID and Pulmonary to help with further tx. Continue Levaquin for now. 2. ESRD - stable, continue dialysis as scheduled. 3. DM2 - fairly well controlled, increase Lantus, continue SS. 4. HTN - controlled, continue home medication. Comment Review of Relevant I have reviewed the following items cosmo (where applicable) has been applied. Labs Laboratory Tests Test 12/16/18 13:25 12/16/18 13:45 12/16/18 15:35 12/16/18 19:31 White Blood Count 16.8 x10^3/uL (4.0-11.0) Red Blood Count 3.19 x10^6/uL (3.50-5.40) Hemoglobin 10.3 g/dL (12.0-15.5) Hematocrit 31.7 % (36.0-47.0) Mean Corpuscular Volume 99 fL (79-100) Mean Corpuscular Hemoglobin 32 pg (25-35) Mean Corpuscular Hemoglobin Concent 33 g/dL (31-37) Red Cell Distribution Width 16.6 % (11.5-14.5) Platelet Count 165 x10^3/uL (140-400) Neutrophils (%) (Auto) 83 % (31-73) Lymphocytes (%) (Auto) 10 % (24-48) Monocytes (%) (Auto) 6 % (0-9) Eosinophils (%) (Auto) 0 % (0-3) Basophils (%) (Auto) 1 % (0-3) Neutrophils # (Auto) 13.9 x10^3uL (1.8-7.7) Lymphocytes # (Auto) 1.7 x10^3/uL (1.0-4.8) Monocytes # (Auto) 1.1 x10^3/uL (0.0-1.1) Eosinophils # (Auto) 0.0 x10^3/uL (0.0-0.7) Basophils # (Auto) 0.1 x10^3/uL (0.0-0.2) Segmented Neutrophils % 82 % (35-66) Band Neutrophils % 4 % (0-9) Lymphocytes % 7 % (24-48) Atypical Lymphocytes % (Manual) 2 % (0-0) Monocytes % 4 % (0-10) Metamyelocytes % 1 % (0-0) Platelet Estimate Adequate (ADEQUATE) Giant Platelets Occ Polychromasia Slight Anisocytosis Slight Sodium Level 141 mmol/L (136-145) Potassium Level 4.4 mmol/L (3.5-5.1) Chloride Level 101 mmol/L (98-107) Carbon Dioxide Level 28 mmol/L (21-32) Anion Gap 12 (6-14) Blood Urea Nitrogen 39 mg/dL (7-20) Creatinine 5.2 mg/dL (0.6-1.0) Estimated GFR (Cockcroft-Gault) 8.2 BUN/Creatinine Ratio 8 (6-20) Glucose Level 215 mg/dL (70-99) Lactic Acid Level 1.2 mmol/L (0.4-2.0) Calcium Level 7.9 mg/dL (8.5-10.1) Total Bilirubin 0.6 mg/dL (0.2-1.0) Aspartate Amino Transf (AST/SGOT) 28 U/L (15-37) Alanine Aminotransferase (ALT/SGPT) 25 U/L (14-59) Alkaline Phosphatase 177 U/L (46-116) Total Protein 6.2 g/dL (6.4-8.2) Albumin 2.8 g/dL (3.4-5.0) Albumin/Globulin Ratio 0.8 (1.0-1.7) O2 Saturation 93 % (92-99) Arterial Blood pH 7.42 (7.35-7.45) Arterial Blood pH (Temp corrected) 7.39 Arterial Blood pCO2 at Patient Temp 42 mmHg (35-46) Arterial Blood pCO2 (Temp correct) 46 mmHg Arterial Blood pO2 at Patient Temp 69 mmHg (65-108) Arterial Blood pO2 (Temp corrected) 78 mmHg Arterial Blood HCO3 27 mmol/L (21-28) Arterial Blood Base Excess 2 mmol/L (-3-3) FiO2 2 lpm nc Glucose (Fingerstick) 206 mg/dL (70-99) 271 mg/dL (70-99) Test 12/17/18 04:45 12/17/18 07:24 12/17/18 09:48 12/17/18 11:41 White Blood Count 15.4 x10^3/uL (4.0-11.0) Red Blood Count 2.99 x10^6/uL (3.50-5.40) Hemoglobin 9.8 g/dL (12.0-15.5) Hematocrit 29.5 % (36.0-47.0) Mean Corpuscular Volume 99 fL (79-100) Mean Corpuscular Hemoglobin 33 pg (25-35) Mean Corpuscular Hemoglobin Concent 33 g/dL (31-37) Red Cell Distribution Width 16.8 % (11.5-14.5) Platelet Count 141 x10^3/uL (140-400) Neutrophils (%) (Auto) 85 % (31-73) Lymphocytes (%) (Auto) 8 % (24-48) Monocytes (%) (Auto) 6 % (0-9) Eosinophils (%) (Auto) 0 % (0-3) Basophils (%) (Auto) 0 % (0-3) Neutrophils # (Auto) 13.1 x10^3uL (1.8-7.7) Lymphocytes # (Auto) 1.2 x10^3/uL (1.0-4.8) Monocytes # (Auto) 1.0 x10^3/uL (0.0-1.1) Eosinophils # (Auto) 0.1 x10^3/uL (0.0-0.7) Basophils # (Auto) 0.0 x10^3/uL (0.0-0.2) Sodium Level 141 mmol/L (136-145) Potassium Level 4.0 mmol/L (3.5-5.1) Chloride Level 103 mmol/L (98-107) Carbon Dioxide Level 27 mmol/L (21-32) Anion Gap 11 (6-14) Blood Urea Nitrogen 54 mg/dL (7-20) Creatinine 6.7 mg/dL (0.6-1.0) Estimated GFR (Cockcroft-Gault) 6.1 Glucose Level 210 mg/dL (70-99) Calcium Level 8.1 mg/dL (8.5-10.1) Glucose (Fingerstick) 243 mg/dL (70-99) 197 mg/dL (70-99) Influenza Type A Antigen Negative (NEGATIVE) Influenza Type B Antigen Negative (NEGATIVE) Test 12/17/18 16:28 12/17/18 20:45 12/18/18 03:25 12/18/18 07:15 Glucose (Fingerstick) 235 mg/dL (70-99) 220 mg/dL (70-99) 175 mg/dL (70-99) White Blood Count 12.9 x10^3/uL (4.0-11.0) Red Blood Count 2.93 x10^6/uL (3.50-5.40) Hemoglobin 9.4 g/dL (12.0-15.5) Hematocrit 29.3 % (36.0-47.0) Mean Corpuscular Volume 100 fL (79-100) Mean Corpuscular Hemoglobin 32 pg (25-35) Mean Corpuscular Hemoglobin Concent 32 g/dL (31-37) Red Cell Distribution Width 17.3 % (11.5-14.5) Platelet Count 132 x10^3/uL (140-400) Neutrophils (%) (Auto) 81 % (31-73) Lymphocytes (%) (Auto) 11 % (24-48) Monocytes (%) (Auto) 7 % (0-9) Eosinophils (%) (Auto) 1 % (0-3) Basophils (%) (Auto) 0 % (0-3) Neutrophils # (Auto) 10.4 x10^3uL (1.8-7.7) Lymphocytes # (Auto) 1.4 x10^3/uL (1.0-4.8) Monocytes # (Auto) 0.9 x10^3/uL (0.0-1.1) Eosinophils # (Auto) 0.1 x10^3/uL (0.0-0.7) Basophils # (Auto) 0.0 x10^3/uL (0.0-0.2) Sodium Level 141 mmol/L (136-145) Potassium Level 4.0 mmol/L (3.5-5.1) Chloride Level 101 mmol/L (98-107) Carbon Dioxide Level 26 mmol/L (21-32) Anion Gap 14 (6-14) Blood Urea Nitrogen 63 mg/dL (7-20) Creatinine 8.1 mg/dL (0.6-1.0) Estimated GFR (Cockcroft-Gault) 4.9 Glucose Level 245 mg/dL (70-99) Calcium Level 7.9 mg/dL (8.5-10.1) Laboratory Tests Test 12/17/18 09:48 12/17/18 11:41 12/17/18 16:28 12/17/18 20:45 Influenza Type A Antigen Negative (NEGATIVE) Influenza Type B Antigen Negative (NEGATIVE) Glucose (Fingerstick) 197 mg/dL (70-99) 235 mg/dL (70-99) 220 mg/dL (70-99) Test 12/18/18 03:25 12/18/18 07:15 White Blood Count 12.9 x10^3/uL (4.0-11.0) Red Blood Count 2.93 x10^6/uL (3.50-5.40) Hemoglobin 9.4 g/dL (12.0-15.5) Hematocrit 29.3 % (36.0-47.0) Mean Corpuscular Volume 100 fL (79-100) Mean Corpuscular Hemoglobin 32 pg (25-35) Mean Corpuscular Hemoglobin Concent 32 g/dL (31-37) Red Cell Distribution Width 17.3 % (11.5-14.5) Platelet Count 132 x10^3/uL (140-400) Neutrophils (%) (Auto) 81 % (31-73) Lymphocytes (%) (Auto) 11 % (24-48) Monocytes (%) (Auto) 7 % (0-9) Eosinophils (%) (Auto) 1 % (0-3) Basophils (%) (Auto) 0 % (0-3) Neutrophils # (Auto) 10.4 x10^3uL (1.8-7.7) Lymphocytes # (Auto) 1.4 x10^3/uL (1.0-4.8) Monocytes # (Auto) 0.9 x10^3/uL (0.0-1.1) Eosinophils # (Auto) 0.1 x10^3/uL (0.0-0.7) Basophils # (Auto) 0.0 x10^3/uL (0.0-0.2) Sodium Level 141 mmol/L (136-145) Potassium Level 4.0 mmol/L (3.5-5.1) Chloride Level 101 mmol/L (98-107) Carbon Dioxide Level 26 mmol/L (21-32) Anion Gap 14 (6-14) Blood Urea Nitrogen 63 mg/dL (7-20) Creatinine 8.1 mg/dL (0.6-1.0) Estimated GFR (Cockcroft-Gault) 4.9 Glucose Level 245 mg/dL (70-99) Calcium Level 7.9 mg/dL (8.5-10.1) Glucose (Fingerstick) 175 mg/dL (70-99) Microbiology 12/16/18 Blood Culture - Preliminary, Resulted NO GROWTH AFTER 1 DAY Medications Current Medications Albuterol Sulfate (Ventolin Neb Soln) 10 mg 1X ONCE CONT NEB Last administered on 12/16/18at 13:39; Start 12/16/18 at 13:30; Stop 12/16/18 at 13:31; Status DC Acetaminophen (Tylenol) 1,000 mg 1X ONCE PO Last administered on 12/16/18at 13: 52; Start 12/16/18 at 13:45; Stop 12/16/18 at 13:47; Status DC Levofloxacin/ Dextrose (Levaquin Per Pharmacy) 1 each PRN DAILY PRN MC SEE COMMENTS; Start 12/16/18 at 15:00 Levofloxacin/ Dextrose 100 ml @ 100 mls/hr Q48H IV Last administered on at 15:17; Start 12/16/18 at 15:00 Ondansetron HCl (Zofran) 4 mg PRN Q8HRS PRN IV NAUSEA/VOMITING; Start 12/16/18 at 15:00; Stop 12/17/18 at 14:59; Status DC Fentanyl Citrate (Fentanyl 2ml Vial) 50 mcg PRN Q1HR PRN IV PAIN; Start at 15:00; Stop 12/17/18 at 14:59; Status DC Albuterol/ Ipratropium (Duoneb) 3 ml RTQID NEB Last administered on 12/16/18 15 :05; Start 12/16/18 at 16:00; Stop 12/16/18 at 16:40; Status DC Acetaminophen (Tylenol) 650 mg PRN Q6HRS PRN PO MILD PAIN Last administered on 12/17/18 08:26; Start 12/16/18 at 16:30 Amlodipine Besylate (Norvasc) 10 mg DAILY PO Last administered on 12/17/18 08: 26; Start 12/17/18 at 09:00 Aspirin (Children'S Aspirin) 81 mg DAILYWBKFT PO Last administered on 12/17/18 08:26; Start 12/17/18 at 08:00 Cetirizine HCl (ZyrTEC) 10 mg DAILY PO Last administered on 12/17/18 08:27; Start 12/17/18 at 09:00 Clonidine HCl (Catapres) 0.1 mg BID PO Last administered on 12/17/18 08:25; Start 12/16/18 at 21:00 Gabapentin (Neurontin) 200 mg BID PO Last administered on 12/17/18 21:41; Start 12/16/18 at 21:00 Acetaminophen/ Hydrocodone Bitart (Lortab 5/325) 1 tab PRN Q6HRS PRN PO MODERATE-SEVERE PAIN; Start 12/16/18 at 16:30 Lactobacillus Rhamnosus (Culturelle) 1 cap BID PO Last administered on 21:43; Start 12/16/18 at 21:00 Sevelamer Carbonate (Renvela) 1,600 mg [id number] PO Last administered on 12/18/18 06:06; Start 12/16/18 at 18:00 Albuterol Sulfate (Ventolin Neb Soln) 2.5 mg PRN Q6HRS PRN NEB SHORTNESS OF BREATH; Start 12/16/18 at 16:45 Non-Formulary Medication (Alendronate Sodium ) 70 mg Q2WKS PO ; Start 12/30/18 at 09:00; Status UNV Calcium/Vitamin D (Oscal D 500mg/ 200uts) 1 tab DAILY PO Last administered on 08:26; Start 12/17/18 at 09:00 Fluticasone Propionate (Flonase) 2 spray DAILY NS ; Start 12/17/18 at 09:00 Hydralazine HCl (Apresoline) 50 mg TID PO Last administered on 12/17/18at 08:25; Start 12/16/18 at 17:00 Insulin Glargine (Lantus) 7 units QHS SQ Last administered on 12/17/18at 21:47; Start 12/16/18 at 21:00 Albuterol/ Ipratropium (Duoneb) 3 ml RTQID NEB Last administered on 12/18/18 07 :36; Start 12/16/18 at 20:00 Labetalol HCl (Trandate) 200 mg DAILY PO Last administered on 12/17/18 08:25; Start 12/17/18 at 09:00 Pantoprazole Sodium (Protonix) 40 mg DAILYAC PO Last administered on 12/17/18at 08:26; Start 12/17/18 at 07:30 Vitamin B Complex/ Vitamin C (Windy-Abby) 1 tab DAILY PO Last administered on 12/17/18at 08:25; Start 12/17/18 at 09:00 Non-Formulary Medication ([guaiFENesin/ CODEINE 100mg/ 10mg] ) 5 ml PRN Q6HRS PRN PO COUGH; Start 12/16/18 at 16:30; Status UNV Insulin Human Lispro (HumaLOG) 0-5 UNITS TIDWMEALS SQ Last administered on at 17:15; Start 12/16/18 at 17:00 Dextrose (Dextrose 50%-Water Syringe) 12.5 gm PRN Q15MIN PRN IV SEE COMMENTS; Start 12/16/18 at 16:45 Zolpidem Tartrate (Ambien) 5 mg PRN QHS PRN PO INSOMNIA; Start 12/17/18 at 09:30 Active Scripts Active [guaiFENesin/CODEINE 100mg/10mg] 5 ML Liquid 5 Ml PO PRN Q6HRS PRN Proair Respiclick (Albuterol Sulfate) 90 Mcg Aer.pow.ba 1 Puff IH PRN Q6HRS PRN Culturelle (Lactobacillus Rhamnosus Gg) 1 Each Cap.sprink 1 Cap PO BID 30 Days Combivent Respimat Inhal (Ipratropium/Albuterol Sulfate) 4 Gm Aer.w.adap 2 Inh IH QID 30 Days Labetalol Hcl 200 Mg Tablet 1 Tab PO DAILY 30 Days Children's Aspirin (Aspirin) 81 Mg Tab.chew 81 Mg PO DAILYWBKFT 30 Days Reported Lantus (Insulin Glargine,Hum.rec.anlog) 100 Unit/1 Ml Vial 7 SQ HS Novolog (Insulin Aspart) 100 Unit/1 Ml Cartridge 100 Unit SQ TIDBFRMEAL Omeprazole 40 Mg Capsule.dr 40 Mg PO DAILY Hydrocodone-Apap 5-325 (Hydrocodone Bit/Acetaminophen) 1 Each Tablet 1 Tab PO Q6HRS PRN Hydralazine Hcl 50 Mg Tablet 1 Tab PO TID Gabapentin (Gabapentin) 100 Mg Capsule 200 Mg PO BID Cetirizine Hcl 10 Mg Tablet 1 Tab PO DAILY Tylenol (Acetaminophen) 325 Mg Tablet 2 Tab PO PRN Q6HRS PRN Clonidine Hcl 0.1 Mg Tablet 0.1 Mg PO BID Alendronate Sodium 70 Mg Tablet 70 Mg PO Q2WKS Flonase Allergy Relief (Fluticasone Propionate) 9.9 Ml Russell.susp 2 Sprays NS DAILY Calcium 600 + Vit D 400 Caplet (Calcium Carbonate/Vitamin D3) 1 Each Tablet 1 Each PO DAILY Renvela (Sevelamer Carbonate) 800 Mg Tablet 2 Tab PO [id number] Norvasc (Amlodipine Besylate) 10 Mg Tablet 10 Mg PO DAILY Windy-Abby Rx Tablet (Vit B Cmplx 3/Fa/Vit C/Biotin) 1 Each Tablet 1 Each PO DAILY Vitals/I & O Vital Sign - Last 24 Hours 12/17/18 12/17/18 12/17/18 12/17/18 08:00 08:25 08:25 08:25 Pulse 100 100 100 B/P (MAP) 165/68 165/68 165/68 O2 Delivery Nasal Cannula O2 Flow Rate 1.5 12/17/18 12/17/18 12/17/18 12/17/18 08:26 11:08 11:28 14:00 Temp 100.2 100.2 Pulse 100 69 69 Resp 20 B/P (MAP) 165/68 114/47 (69) 114/47 Pulse Ox 100 O2 Delivery Nasal Cannula Nasal Cannula O2 Flow Rate 2.0 3.0 12/17/18 12/17/18 12/17/18 12/17/18 15:15 19:05 20:00 21:00 Temp 99.6 98.0 99.6 98.0 Pulse 68 72 72 Resp 19 B/P (MAP) 110/48 (68) 118/55 (76) 118/55 Pulse Ox 100 97 O2 Delivery Nasal Cannula Nasal Cannula Nasal Cannula O2 Flow Rate 2.0 3.0 1.5 12/17/18 12/17/18 12/17/18 12/18/18 21:00 21:08 23:05 03:05 Temp 97.7 98.5 97.7 98.5 Pulse 72 79 87 Resp 18 18 B/P (MAP) 118/55 123/88 (100) 148/47 (80) Pulse Ox 98 98 97 O2 Delivery Nasal Cannula Nasal Cannula Nasal Cannula O2 Flow Rate 3.0 3.0 3.0 12/18/18 12/18/18 07:00 07:37 Temp 98.9 98.9 Pulse 88 Resp 18 B/P (MAP) 118/50 (72) Pulse Ox 97 97 O2 Delivery Nasal Cannula Nasal Cannula O2 Flow Rate 2.0 3.0 Intake and Output 12/17/18 12/17/18 12/18/18 14:59 22:59 06:59 Intake Total 420 ml 200 ml 400 ml Output Total 0 ml Balance 420 ml 200 ml 400 ml ARELI MATIAS MD Dec 18, 2018 08:01
[2018-12-18] MEDS: LABETALOL HCL 200 MG TABLET PO SCH (08:43)
[2018-12-18] MEDS: FOLIC/VIT B COMP W-C (RENAL) TABLET. PO SCH (08:44)
[2018-12-18] MEDS: LACTOBACILLUS RHAMNOSUS GG 1 CAPSULE. PO SCH ×2 (08:45→20:26)
[2018-12-18] MEDS: CALCIUM CARB/VIT D3 500/200 TABLET. PO SCH (08:45)
[2018-12-18] MEDS: amLODIPine BESYLATE 10 MG TABLET PO SCH (08:45)
[2018-12-18] MEDS: GABAPENTIN 100 MG CAPSULE. PO SCH ×2 (08:45→20:25)
[2018-12-18] MEDS: cloNIDine HCL 0.1 MG TABLET PO SCH ×2 (08:45→20:26)
--- NOTE | 2018-12-18 08:46 | NUR ---
Some morning meds held due to dialysis day.
[2018-12-18] MEDS ORDERED: IV NORMAL SALINE 1000ML BAG 1,000 ML IV PRN ×2 (08:58)
[2018-12-18] MEDS ORDERED: DIALYSIS PATIENT. MC PRN ×2 (09:00)
[2018-12-18] MEDS: CETIRIZINE HCL 10 MG TABLET. PO SCH (09:00)
[2018-12-18] MEDS ORDERED: ALBUMIN HUMAN 25% 200 ML IV PRN (09:00)
[2018-12-18] MEDS: FLUTICASONE 50MCG/NASAL SPRAY 16GM BOTTLE. NS SCH (09:32)
--- NOTE | 2018-12-18 10:41 | NUR ---
SW following pt for anticipated dc needs. Chart reviewed and DW RN. Pt lives at home with family. PT/OT pending. Spoke with Arthur at [facility] and confirmed pt dialyzes at clinic on , , at 0615. Will continue to follow.
--- NOTE | 2018-12-18 12:19 | PDOC ---
Infectious Disease Note Vital Signs: Vital Signs Vital Signs Date Time Temp Pulse Resp B/P (MAP) Pulse Ox O2 Delivery O2 Flow Rate FiO2 12/18/18 08:45 88 118/50 12/18/18 07:37 97 Nasal Cannula 3.0 12/18/18 07:00 98.9 18 98.9 Medications: Inpatient Meds: Current Medications Medications (Trade) Dose Ordered Sig/Bill Start Time Stop Time Status Last Admin Dose Admin Acetaminophen (Tylenol) 650 mg PRN Q6HRS PRN 12/16/18 16:30 12/17/18 08:26 650 MG Acetaminophen/ Hydrocodone Bitart (Lortab 5/325) 1 tab PRN Q6HRS PRN 12/16/18 16:30 Albumin Human 200 ml @ 200 mls/hr 1X PRN PRN 12/18/18 09:00 12/18/18 14:59 Albuterol Sulfate (Ventolin Neb Soln) 2.5 mg PRN Q6HRS PRN 12/16/18 16:45 Albuterol/ Ipratropium (Duoneb) 3 ml RTQID 12/16/18 20:00 12/18/18 07:36 3 ML Amlodipine Besylate (Norvasc) 10 mg DAILY 12/17/18 09:00 12/17/18 08:26 10 MG Aspirin (Children'S Aspirin) 81 mg DAILYWBKFT 12/17/18 08:00 12/17/18 08:26 81 MG Calcium/Vitamin D (Oscal D 500mg/ 200uts) 1 tab DAILY 12/17/18 09:00 12/17/18 08:26 1 TAB Cetirizine HCl (ZyrTEC) 10 mg DAILY 12/17/18 09:00 12/17/18 08:27 10 MG Clonidine HCl (Catapres) 0.1 mg BID 12/16/18 21:00 12/17/18 08:25 0.1 MG Dextrose (Dextrose 50%-Water Syringe) 12.5 gm PRN Q15MIN PRN 12/16/18 16:45 Fentanyl Citrate (Fentanyl 2ml Vial) 50 mcg PRN Q1HR PRN 12/16/18 15:00 12/17/18 14:59 DC Fluticasone Propionate (Flonase) 2 spray DAILY 12/17/18 09:00 12/18/18 09:32 2 SPRAY Gabapentin (Neurontin) 200 mg BID 12/16/18 21:00 12/17/18 21:41 200 MG Hydralazine HCl (Apresoline) 50 mg TID 12/16/18 17:00 12/17/18 08:25 50 MG Info (PHARMACY MONITORING -- do not chart) 1 each PRN DAILY PRN 12/18/18 09:00 Insulin Glargine (Lantus) 8 units QHS 12/18/18 21:00 Insulin Human Lispro (HumaLOG) 0-5 UNITS TIDWMEALS 12/16/18 17:00 12/17/18 17:15 3 UNITS Labetalol HCl (Trandate) 200 mg DAILY 12/17/18 09:00 12/17/18 08:25 200 MG Lactobacillus Rhamnosus (Culturelle) 1 cap BID 12/16/18 21:00 12/17/18 21:43 1 CAP Levofloxacin/ Dextrose 100 ml @ 100 mls/hr Q48H 12/16/18 15:00 12/16/18 15:17 100 MLS/HR Levofloxacin/ Dextrose (Levaquin Per Pharmacy) 1 each PRN DAILY PRN 12/16/18 15:00 Non-Formulary Medication (Alendronate Sodium ) 70 mg Q2WKS 12/30/18 09:00 UNV Non-Formulary Medication ([guaiFENesin/ CODEINE 100mg/ 10mg] ) 5 ml PRN Q6HRS PRN 12/16/18 16:30 UNV Ondansetron HCl (Zofran) 4 mg PRN Q8HRS PRN 12/16/18 15:00 12/17/18 14:59 DC Pantoprazole Sodium (Protonix) 40 mg DAILYAC 12/17/18 07:30 12/17/18 08:26 40 MG Sevelamer Carbonate (Renvela) 1,600 mg [id number] 12/16/18 18:00 12/18/18 06:06 1,600 MG Sodium Chloride 1,000 ml @ 400 mls/hr Q2H30M PRN 12/18/18 08:58 12/18/18 20:57 Vitamin B Complex/ Vitamin C (Windy-Abby) 1 tab DAILY 12/17/18 09:00 12/17/18 08:25 1 TAB Zolpidem Tartrate (Ambien) 5 mg PRN QHS PRN 12/17/18 09:30 Labs: Lab Laboratory Tests Test 12/17/18 16:28 12/17/18 20:45 12/18/18 03:25 12/18/18 07:15 Glucose (Fingerstick) 235 mg/dL (70-99) 220 mg/dL (70-99) 175 mg/dL (70-99) White Blood Count 12.9 x10^3/uL (4.0-11.0) Red Blood Count 2.93 x10^6/uL (3.50-5.40) Hemoglobin 9.4 g/dL (12.0-15.5) Hematocrit 29.3 % (36.0-47.0) Mean Corpuscular Volume 100 fL (79-100) Mean Corpuscular Hemoglobin 32 pg (25-35) Mean Corpuscular Hemoglobin Concent 32 g/dL (31-37) Red Cell Distribution Width 17.3 % (11.5-14.5) Platelet Count 132 x10^3/uL (140-400) Neutrophils (%) (Auto) 81 % (31-73) Lymphocytes (%) (Auto) 11 % (24-48) Monocytes (%) (Auto) 7 % (0-9) Eosinophils (%) (Auto) 1 % (0-3) Basophils (%) (Auto) 0 % (0-3) Neutrophils # (Auto) 10.4 x10^3uL (1.8-7.7) Lymphocytes # (Auto) 1.4 x10^3/uL (1.0-4.8) Monocytes # (Auto) 0.9 x10^3/uL (0.0-1.1) Eosinophils # (Auto) 0.1 x10^3/uL (0.0-0.7) Basophils # (Auto) 0.0 x10^3/uL (0.0-0.2) Sodium Level 141 mmol/L (136-145) Potassium Level 4.0 mmol/L (3.5-5.1) Chloride Level 101 mmol/L (98-107) Carbon Dioxide Level 26 mmol/L (21-32) Anion Gap 14 (6-14) Blood Urea Nitrogen 63 mg/dL (7-20) Creatinine 8.1 mg/dL (0.6-1.0) Estimated GFR (Cockcroft-Gault) 4.9 Glucose Level 245 mg/dL (70-99) Calcium Level 7.9 mg/dL (8.5-10.1) Objective: Assessment: Fever Leucocytosis Recurrent pneumonia ESRD GERD Plan: Plan of Care cont levaquin renal dosing f/u cult and labs in am ct chest pulm consult pending Thank you [id number] MADHAVI REAVES MD Dec 18, 2018 12:19
[2018-12-18 15:00] VITALS: BP 167/60
--- NOTE | 2018-12-18 15:21 | RAD ---
Examination: CT CHEST WO CONTRAST History: recurrent pna prev sent Comparison/Correlation: 10/19/2018 CT chest Wo contrast Findings: Axial images of the chest were obtained without contrast. Sagittal and coronal reformatted images provided. Nonenlarged superior mediastinal lymph nodes are present. There is a single mildly enlarged lymph nodes involving the right lower paratracheal region which is similar to previous exam. It is smoothly marginated and has a fatty hilum. Left basilar calcified granuloma is present. Minimal costophrenic sulcus atelectasis bilaterally is noted greater on the right. Minimal calcification involving the right costophrenic sulcus parenchyma noted. Small pleural effusions are present. Minimal right base atelectasis is present and overall similar to previous. Left basilar discoid linear atelectasis is also present and of a lesser extent. Significant compression fracture deformity of the low thoracic spine vertebral bodies unchanged. Impression: Right base atelectasis is present and overall similar in extent to previous exam. Very small pleural effusions again seen and these are decreased in the interval. No new infiltrate. Left basilar discoid atelectasis is slightly increased. PQRS Compliance Statement: One or more of the following individualized dose reduction techniques were utilized for this examination: 1. Automated exposure control 2. Adjustment of the mA and/or kV according to patient size 3. Use of iterative reconstruction technique Electronically signed by: Bryan De La Cruz MD (12/18/2018 3:18 PM) [id number]
--- NOTE | 2018-12-18 16:01 | PDOC ---
SUBJECTIVE ROS Seen on HD, tolerating well OBJECTIVE Vital Signs Vital Signs Date Time Temp Pulse Resp B/P (MAP) Pulse Ox O2 Delivery O2 Flow Rate FiO2 12/18/18 15:03 Nasal Cannula 2.0 12/18/18 15:00 99.3 95 22 167/60 (95) 98 99.3 I & 0 Intake and Output 12/18/18 07:00 Intake Total 1020 ml Output Total 0 ml Balance 1020 ml Intake Oral 1020 ml Output Urine Total 0 ml PHYSICAL EXAM Physical Exam GENERAL APPEARANCE: The patient awake, conversant. HEENT: Clear. NECK: No increased JVD. No thyromegaly, mass or adenopathy. LUNGS: Decreased breath sound at bases. CARDIAC: Without S3 or rub. ABDOMEN: Soft, nontender, no bruits. EXTREMITIES: Without edema. DIAGNOSIS/ASSESSMENT Assessment & Plan ESRD- MWF Seen on HD, tolerating well Continue as ordered, jone Crump Fever/Leucocytosis/Recurrent pneumonia Frequent Hospitalizations On Abx Anemia- Hgb stable Aranesp as ordered DM- as per primary HTN-On Norvasc 10mg, Labetalol 200mg BID, Clonidine 0.1mg BID and Hydralazine 50mg TID COMMENT/RELEVANT DATA Meds Current Medications Medications (Trade) Dose Ordered Sig/Bill Start Time Stop Time Status Last Admin Dose Admin Acetaminophen (Tylenol) 650 mg PRN Q6HRS PRN 12/16/18 16:30 12/17/18 08:26 650 MG Acetaminophen/ Hydrocodone Bitart (Lortab 5/325) 1 tab PRN Q6HRS PRN 12/16/18 16:30 Albumin Human 200 ml @ 200 mls/hr 1X PRN PRN 12/18/18 09:00 12/18/18 14:59 DC Albuterol Sulfate (Ventolin Neb Soln) 2.5 mg PRN Q6HRS PRN 12/16/18 16:45 Albuterol/ Ipratropium (Duoneb) 3 ml RTQID 12/16/18 20:00 12/18/18 15:02 3 ML Amlodipine Besylate (Norvasc) 10 mg DAILY 12/17/18 09:00 12/17/18 08:26 10 MG Aspirin (Children'S Aspirin) 81 mg DAILYWBKFT 12/17/18 08:00 12/17/18 08:26 81 MG Calcium/Vitamin D (Oscal D 500mg/ 200uts) 1 tab DAILY 12/17/18 09:00 12/17/18 08:26 1 TAB Cetirizine HCl (ZyrTEC) 10 mg DAILY 12/17/18 09:00 12/17/18 08:27 10 MG Clonidine HCl (Catapres) 0.1 mg BID 12/16/18 21:00 12/17/18 08:25 0.1 MG Dextrose (Dextrose 50%-Water Syringe) 12.5 gm PRN Q15MIN PRN 12/16/18 16:45 Fentanyl Citrate (Fentanyl 2ml Vial) 50 mcg PRN Q1HR PRN 12/16/18 15:00 12/17/18 14:59 DC Fluticasone Propionate (Flonase) 2 spray DAILY 12/17/18 09:00 12/18/18 09:32 2 SPRAY Gabapentin (Neurontin) 200 mg BID 12/16/18 21:00 12/17/18 21:41 200 MG Hydralazine HCl (Apresoline) 50 mg TID 12/16/18 17:00 12/18/18 14:57 50 MG Info (PHARMACY MONITORING -- do not chart) 1 each PRN DAILY PRN 12/18/18 09:00 Insulin Glargine (Lantus) 8 units QHS 12/18/18 21:00 Insulin Human Lispro (HumaLOG) 0-5 UNITS TIDWMEALS 12/16/18 17:00 12/17/18 17:15 3 UNITS Labetalol HCl (Trandate) 200 mg DAILY 12/17/18 09:00 12/17/18 08:25 200 MG Lactobacillus Rhamnosus (Culturelle) 1 cap BID 12/16/18 21:00 12/17/18 21:43 1 CAP Levofloxacin/ Dextrose 100 ml @ 100 mls/hr Q48H 12/16/18 15:00 12/18/18 14:58 100 MLS/HR Levofloxacin/ Dextrose (Levaquin Per Pharmacy) 1 each PRN DAILY PRN 12/16/18 15:00 Non-Formulary Medication (Alendronate Sodium ) 70 mg Q2WKS 12/30/18 09:00 UNV Non-Formulary Medication ([guaiFENesin/ CODEINE 100mg/ 10mg] ) 5 ml PRN Q6HRS PRN 12/16/18 16:30 UNV Ondansetron HCl (Zofran) 4 mg PRN Q8HRS PRN 12/16/18 15:00 12/17/18 14:59 DC Pantoprazole Sodium (Protonix) 40 mg DAILYAC 12/17/18 07:30 12/17/18 08:26 40 MG Sevelamer Carbonate (Renvela) 1,600 mg [id number] 12/16/18 18:00 12/18/18 06:06 1,600 MG Sodium Chloride 1,000 ml @ 400 mls/hr Q2H30M PRN 12/18/18 08:58 12/18/18 20:57 Vitamin B Complex/ Vitamin C (Windy-Abby) 1 tab DAILY 12/17/18 09:00 12/17/18 08:25 1 TAB Zolpidem Tartrate (Ambien) 5 mg PRN QHS PRN 12/17/18 09:30 Lab Laboratory Tests Test 12/17/18 16:28 12/17/18 20:45 12/18/18 03:25 12/18/18 07:15 Glucose (Fingerstick) 235 mg/dL (70-99) 220 mg/dL (70-99) 175 mg/dL (70-99) White Blood Count 12.9 x10^3/uL (4.0-11.0) Red Blood Count 2.93 x10^6/uL (3.50-5.40) Hemoglobin 9.4 g/dL (12.0-15.5) Hematocrit 29.3 % (36.0-47.0) Mean Corpuscular Volume 100 fL (79-100) Mean Corpuscular Hemoglobin 32 pg (25-35) Mean Corpuscular Hemoglobin Concent 32 g/dL (31-37) Red Cell Distribution Width 17.3 % (11.5-14.5) Platelet Count 132 x10^3/uL (140-400) Neutrophils (%) (Auto) 81 % (31-73) Lymphocytes (%) (Auto) 11 % (24-48) Monocytes (%) (Auto) 7 % (0-9) Eosinophils (%) (Auto) 1 % (0-3) Basophils (%) (Auto) 0 % (0-3) Neutrophils # (Auto) 10.4 x10^3uL (1.8-7.7) Lymphocytes # (Auto) 1.4 x10^3/uL (1.0-4.8) Monocytes # (Auto) 0.9 x10^3/uL (0.0-1.1) Eosinophils # (Auto) 0.1 x10^3/uL (0.0-0.7) Basophils # (Auto) 0.0 x10^3/uL (0.0-0.2) Sodium Level 141 mmol/L (136-145) Potassium Level 4.0 mmol/L (3.5-5.1) Chloride Level 101 mmol/L (98-107) Carbon Dioxide Level 26 mmol/L (21-32) Anion Gap 14 (6-14) Blood Urea Nitrogen 63 mg/dL (7-20) Creatinine 8.1 mg/dL (0.6-1.0) Estimated GFR (Cockcroft-Gault) 4.9 Glucose Level 245 mg/dL (70-99) Calcium Level 7.9 mg/dL (8.5-10.1) Test 12/18/18 12:50 Glucose (Fingerstick) 108 mg/dL (70-99) Results All relevant outside records, renal labs, imaging studies, telemetry/EKG's were reviewed. XAVIER VELA MD Dec 18, 2018 16:01
--- NOTE | 2018-12-18 16:22 | PDOC ---
PULMONARY PROGRESS NOTES Vitals Vital Signs Date Time Temp Pulse Resp B/P (MAP) Pulse Ox O2 Delivery O2 Flow Rate FiO2 12/18/18 15:03 Nasal Cannula 2.0 12/18/18 15:00 99.3 95 22 167/60 (95) 98 99.3 General: Alert, No acute distress Lungs: Crackles Cardiovascular: S1, S2 Abdomen: Soft, Non-tender Extremities: No Edema Labs Laboratory Tests Test 12/16/18 19:31 12/17/18 04:45 12/17/18 07:24 12/17/18 09:48 Glucose (Fingerstick) 271 mg/dL (70-99) 243 mg/dL (70-99) White Blood Count 15.4 x10^3/uL (4.0-11.0) Red Blood Count 2.99 x10^6/uL (3.50-5.40) Hemoglobin 9.8 g/dL (12.0-15.5) Hematocrit 29.5 % (36.0-47.0) Mean Corpuscular Volume 99 fL (79-100) Mean Corpuscular Hemoglobin 33 pg (25-35) Mean Corpuscular Hemoglobin Concent 33 g/dL (31-37) Red Cell Distribution Width 16.8 % (11.5-14.5) Platelet Count 141 x10^3/uL (140-400) Neutrophils (%) (Auto) 85 % (31-73) Lymphocytes (%) (Auto) 8 % (24-48) Monocytes (%) (Auto) 6 % (0-9) Eosinophils (%) (Auto) 0 % (0-3) Basophils (%) (Auto) 0 % (0-3) Neutrophils # (Auto) 13.1 x10^3uL (1.8-7.7) Lymphocytes # (Auto) 1.2 x10^3/uL (1.0-4.8) Monocytes # (Auto) 1.0 x10^3/uL (0.0-1.1) Eosinophils # (Auto) 0.1 x10^3/uL (0.0-0.7) Basophils # (Auto) 0.0 x10^3/uL (0.0-0.2) Sodium Level 141 mmol/L (136-145) Potassium Level 4.0 mmol/L (3.5-5.1) Chloride Level 103 mmol/L (98-107) Carbon Dioxide Level 27 mmol/L (21-32) Anion Gap 11 (6-14) Blood Urea Nitrogen 54 mg/dL (7-20) Creatinine 6.7 mg/dL (0.6-1.0) Estimated GFR (Cockcroft-Gault) 6.1 Glucose Level 210 mg/dL (70-99) Calcium Level 8.1 mg/dL (8.5-10.1) Influenza Type A Antigen Negative (NEGATIVE) Influenza Type B Antigen Negative (NEGATIVE) Test 12/17/18 11:41 12/17/18 16:28 12/17/18 20:45 12/18/18 03:25 Glucose (Fingerstick) 197 mg/dL (70-99) 235 mg/dL (70-99) 220 mg/dL (70-99) White Blood Count 12.9 x10^3/uL (4.0-11.0) Red Blood Count 2.93 x10^6/uL (3.50-5.40) Hemoglobin 9.4 g/dL (12.0-15.5) Hematocrit 29.3 % (36.0-47.0) Mean Corpuscular Volume 100 fL (79-100) Mean Corpuscular Hemoglobin 32 pg (25-35) Mean Corpuscular Hemoglobin Concent 32 g/dL (31-37) Red Cell Distribution Width 17.3 % (11.5-14.5) Platelet Count 132 x10^3/uL (140-400) Neutrophils (%) (Auto) 81 % (31-73) Lymphocytes (%) (Auto) 11 % (24-48) Monocytes (%) (Auto) 7 % (0-9) Eosinophils (%) (Auto) 1 % (0-3) Basophils (%) (Auto) 0 % (0-3) Neutrophils # (Auto) 10.4 x10^3uL (1.8-7.7) Lymphocytes # (Auto) 1.4 x10^3/uL (1.0-4.8) Monocytes # (Auto) 0.9 x10^3/uL (0.0-1.1) Eosinophils # (Auto) 0.1 x10^3/uL (0.0-0.7) Basophils # (Auto) 0.0 x10^3/uL (0.0-0.2) Sodium Level 141 mmol/L (136-145) Potassium Level 4.0 mmol/L (3.5-5.1) Chloride Level 101 mmol/L (98-107) Carbon Dioxide Level 26 mmol/L (21-32) Anion Gap 14 (6-14) Blood Urea Nitrogen 63 mg/dL (7-20) Creatinine 8.1 mg/dL (0.6-1.0) Estimated GFR (Cockcroft-Gault) 4.9 Glucose Level 245 mg/dL (70-99) Calcium Level 7.9 mg/dL (8.5-10.1) Test 12/18/18 07:15 12/18/18 12:50 Glucose (Fingerstick) 175 mg/dL (70-99) 108 mg/dL (70-99) Laboratory Tests Test 12/17/18 16:28 12/17/18 20:45 12/18/18 03:25 12/18/18 07:15 Glucose (Fingerstick) 235 mg/dL (70-99) 220 mg/dL (70-99) 175 mg/dL (70-99) White Blood Count 12.9 x10^3/uL (4.0-11.0) Red Blood Count 2.93 x10^6/uL (3.50-5.40) Hemoglobin 9.4 g/dL (12.0-15.5) Hematocrit 29.3 % (36.0-47.0) Mean Corpuscular Volume 100 fL (79-100) Mean Corpuscular Hemoglobin 32 pg (25-35) Mean Corpuscular Hemoglobin Concent 32 g/dL (31-37) Red Cell Distribution Width 17.3 % (11.5-14.5) Platelet Count 132 x10^3/uL (140-400) Neutrophils (%) (Auto) 81 % (31-73) Lymphocytes (%) (Auto) 11 % (24-48) Monocytes (%) (Auto) 7 % (0-9) Eosinophils (%) (Auto) 1 % (0-3) Basophils (%) (Auto) 0 % (0-3) Neutrophils # (Auto) 10.4 x10^3uL (1.8-7.7) Lymphocytes # (Auto) 1.4 x10^3/uL (1.0-4.8) Monocytes # (Auto) 0.9 x10^3/uL (0.0-1.1) Eosinophils # (Auto) 0.1 x10^3/uL (0.0-0.7) Basophils # (Auto) 0.0 x10^3/uL (0.0-0.2) Sodium Level 141 mmol/L (136-145) Potassium Level 4.0 mmol/L (3.5-5.1) Chloride Level 101 mmol/L (98-107) Carbon Dioxide Level 26 mmol/L (21-32) Anion Gap 14 (6-14) Blood Urea Nitrogen 63 mg/dL (7-20) Creatinine 8.1 mg/dL (0.6-1.0) Estimated GFR (Cockcroft-Gault) 4.9 Glucose Level 245 mg/dL (70-99) Calcium Level 7.9 mg/dL (8.5-10.1) Test 12/18/18 12:50 Glucose (Fingerstick) 108 mg/dL (70-99) Medications Active Scripts Medications Dose Route/Sig Max Daily Dose Days Date Category Lantus (Insulin Glargine,Hum.rec.anlog) 100 Unit/1 Ml Vial 7 SQ HS 12/05/18 Reported Novolog (Insulin Aspart) 100 Unit/1 Ml Cartridge 100 Unit SQ TIDBFRMEAL 12/05/18 Reported [guaiFENesin/CODEINE 100mg/10mg] 5 ML Liquid 5 Ml PO PRN Q6HRS PRN 11/10/18 Rx Proair Respiclick (Albuterol Sulfate) 90 Mcg Aer.pow.ba 1 Puff IH PRN Q6HRS PRN 04/10/18 Rx Culturelle (Lactobacillus Rhamnosus Gg) 1 Each Cap.sprink 1 Cap PO BID 30 12/15/17 Rx Combivent Respimat Inhal (Ipratropium/Albuterol Sulfate) 4 Gm Aer.w.adap 2 Inh IH QID 30 09/02/17 Rx Labetalol Hcl 200 Mg Tablet 1 Tab PO DAILY 30 09/02/17 Rx Omeprazole 40 Mg Capsule.dr 40 Mg PO DAILY 09/01/17 Reported Hydrocodone-Apap 5-325 (Hydrocodone Bit/Acetaminophen) 1 Each Tablet 1 Tab PO Q6HRS PRN 09/01/17 Reported Hydralazine Hcl 50 Mg Tablet 1 Tab PO TID 04/08/17 Reported Gabapentin (Gabapentin) 100 Mg Capsule 200 Mg PO BID 04/08/17 Reported Cetirizine Hcl 10 Mg Tablet 1 Tab PO DAILY 10/29/16 Reported Tylenol (Acetaminophen) 325 Mg Tablet 2 Tab PO PRN Q6HRS PRN 10/29/16 Reported Clonidine Hcl 0.1 Mg Tablet 0.1 Mg PO BID 09/17/16 Reported Alendronate Sodium 70 Mg Tablet 70 Mg PO Q2WKS 09/17/16 Reported Flonase Allergy Relief (Fluticasone Propionate) 9.9 Ml [place].susp 2 Sprays NS DAILY 09/17/16 Reported Children's Aspirin (Aspirin) 81 Mg Tab.chew 81 Mg PO DAILYWBKFT 30 11/04/15 Rx Calcium 600 + Vit D 400 Caplet (Calcium Carbonate/Vitamin D3) 1 Each Tablet 1 Each PO DAILY 10/24/15 Reported Renvela (Sevelamer Carbonate) 800 Mg Tablet 2 Tab PO [id number] 12/21/14 Reported Norvasc (Amlodipine Besylate) 10 Mg Tablet 10 Mg PO DAILY 11/11/13 Reported Windy-Abby Rx Tablet (Vit B Cmplx 3/Fa/Vit C/Biotin) 1 Each Tablet 1 Each PO DAILY 11/11/13 Reported Impression . FULL NOTE DICTATED AGREE WITH CURRENT RX THANKS TAMI RAMIREZ MD Dec 18, 2018 16:22
[2018-12-18] MEDS: HYDROcodone/APAP 5/325MG 1 TAB TABLET PO PRN (19:33)
[2018-12-18 19:45] VITALS: BP 156/52
[2018-12-18] MEDS: DARBEPOETIN ALFA 60 MCG/0.3 ML DISP.SYRIN. SQ SCH (20:27)
[2018-12-18] MEDS: INSULIN GLARGINE 300 UNITS/3 ML INSULN.PEN. SQ SCH (20:40)
--- NOTE | 2018-12-18 22:06 | CONS ---
DATE OF CONSULTATION: 12/18/2018 REFERRING PHYSICIAN: Dr. Banuelos. REASON FOR CONSULTATION: Recurrent pneumonia, antibiotic management. HISTORY OF PRESENT ILLNESS: A 68-year-old female recently discharged on 12/08/2018 after she was admitted on 12/05/2018 for pneumonia. She was on vancomycin, Zosyn and then was discharged on doxycycline and steroid taper on 12/08/2018. The patient had a previous admission on 11/05 through the 11/14, at which time, she was again admitted for acute hypoxic respiratory failure likely secondary to pneumonia. The patient was treated with IV vancomycin and Zosyn and was discharged on Augmentin and prednisone taper. The patient presented again with febrile illness and cough, chest pain and chills. The patient has history of end-stage renal disease and is undergoing dialysis currently. I evaluated the patient in dialysis unit. The patient was started on IV Levaquin. Blood cultures are negative so far. Chest x-ray showed a persistent left basal infiltrate, a tiny right pleural effusion. The patient says she feels better. Fever has resolved. Still has some cough, dry, unable to bring up any sputum. Denies any sore throat, runny nose, headache, visual disturbances, nausea, vomiting, diarrhea. The patient has constipation. She lives with her daughter at home with grandchildren. She denies any sick contact. PAST MEDICAL HISTORY: End-stage renal disease, on hemodialysis. Diabetes mellitus, hypertension, coronary artery disease, congestive heart failure, cardiomyopathy, hyperlipidemia, history of recurrent pneumonia twice 10/2018 and 11/2018. Peripheral neuropathy, TIA, GERD, cholelithiasis, anemia of chronic disease, secondary hyperparathyroidism, depression. Cholecystectomy, , tonsillectomy, hysterectomy. ALLERGIES: None. CURRENT MEDICATION: Levaquin. Other medications reviewed in medication list. FAMILY HISTORY: Noncontributory. SOCIAL HISTORY: Resides with her daughter at home. REVIEW OF SYSTEMS: Negative except for above. PHYSICAL EXAMINATION: VITAL SIGNS: Temperature 98.1, T-max 103. Pulse 88, respiratory rate 18, blood pressure 118/50, oxygen saturation 97% on 3 liters nasal cannula. GENERAL: Alert, oriented, tired appearing female undergoing dialysis, currently cooperative, in no acute distress. HEENT: Normocephalic, atraumatic, anicteric. No thrush. Oral mucosa moist. NECK: Supple. No JVD. LUNGS: Decreased breath sounds at bases. CARDIOVASCULAR: S1, S2 with no gallops or murmurs. ABDOMEN: Soft, nontender, nondistended. EXTREMITIES: No edema, no cyanosis. NEUROLOGIC: Alert and oriented x 3. Grossly nonfocal. PSYCHIATRIC: Cooperative, appropriate mood and affect. LABORATORY DATA: WBC 12.9, was 16.8. Hemoglobin 9.4, hematocrit 29.3, platelets 132. Sodium 141, potassium 4.0, chloride 101, bicarbonate 26, BUN 63, creatinine 8.1, glucose 245. Influenza screen negative. Microbiology: Blood culture negative. Sputum culture pending at this time. IMAGING: Chest x-ray, persistent left basilar infiltrate, tiny right pleural effusion. IMPRESSION: 1. Fever, influenza screen negative. 2. Recurrent pneumonia, previously in 10/2018 and 11/2018. 3. End-stage renal disease, on hemodialysis. 4. Leukocytosis, resolving. 5. Influenza screen negative. 6. Gastroesophageal reflux disease. 7. Allergic rhinitis. 8. Diabetes. RECOMMENDATIONS: 1. Continue Levaquin, renal dosing.Fever has resolved 2. Follow up sputum and blood cultures. 3. Continue supportive care. 4. Follow up labs in a.m. 5. Follow up cultures. 6. We will obtain CT chest. 7. Pulmonary consult pending. Thank you, Dr. Banuelos, for consulting Infectious Disease to participate in this patient's care. If you have any questions, do not hesitate to contact me. MADHAVI REAVES MD DR: IMMANUEL/ronaldo JOB#: [id number] / [id number] NISHA
[2018-12-18 23:28] VITALS: BP 141/52
[2018-12-19 03:32] VITALS: BP 142/52
--- NOTE | 2018-12-19 05:28 | CONS ---
DATE OF CONSULTATION: 12/18/2018 ATTENDING PHYSICIAN: Konrad Starkey M.D. REASON FOR CONSULTATION: The patient seen in Pulmonary consultation at the request of Dr. Starkey for increasing shortness of breath and abnormal chest x-ray. HISTORY OF PRESENT ILLNESS: The patient is a 68-year-old well known to me from previous hospitalization and she has had a previous abnormal CT of the chest with recurrent mucus plugging. She presented with increasing shortness of breath over the last several days, fever at home 103 and no sick contact. She is up-to-date on pneumonia vaccination and flu vaccination. She also has some shakiness, no diaphoresis and the cough is mostly nonproductive. She was evaluated in the Emergency Room, underwent a chest x-ray and subsequent CT of the chest. Chest x-ray revealed persistent basilar infiltrates with trace pleural effusion. CT chest was obtained and in comparison to 10/19/2018, there was a right base atelectasis, similar to the previous exam. There was very small effusion which actually had decreased in size. There is no new infiltrates. PAST MEDICAL HISTORY: Otherwise remarkable for coronary artery disease; CHF; hypertension; hyperlipidemia; previous pneumonia; peripheral neuropathy; TIA; end-stage renal disease, on hemodialysis; depression and chronic renal failure. She also has hyperparathyroidism. PAST SURGICAL HISTORY: Status post cholecystectomy, , tonsillectomy, hysterectomy and she has had previous bronchoscopies in the past. FAMILY HISTORY: Cancer, diabetes and hypertension. SOCIAL HISTORY: Socially, she denies any tobacco use. REVIEW OF SYSTEMS: CONSTITUTIONAL: Subjective fever. EYES: No changes in visual acuity. HEENT: No nasal congestion or sore throat. PULMONARY: As indicated above. CARDIOVASCULAR: No chest pain. No pressure. GASTROINTESTINAL: No nausea, vomiting or diarrhea. GENITOURINARY: No dysuria or frequency. MUSCULOSKELETAL: No localized muscle aches or joint pains. SKIN: No new skin rashes. NEUROLOGICAL: No headaches, diplopia or blurred vision. CURRENT MEDICATIONS: List was reviewed. ALLERGIES: No known drug allergies. PHYSICAL EXAMINATION: VITAL SIGNS: Since admission, T-max was 101.,101.8 and yesterday, she had a T-max of 100.8. HEENT: Eyes, the sclerae were nonicteric. NECK: Jugular venous distention was not elevated. No lymphadenopathy. CHEST: Full expansion. Septal crackles in the bases. No wheezes. CARDIOVASCULAR: Regular rate and rhythm with S1 and S2. No S3. ABDOMEN: Soft, nontender and nondistended. EXTREMITIES: No clubbing, cyanosis or edema. LABORATORY DATA: Labs were reviewed. White count was elevated. Hemoglobin and hematocrit were noted. Electrolytes were noted. Serology for influenza was negative. RADIOLOGICAL DATA: CT as indicated above. IMPRESSION: 1. Fever, suspect possibly secondary to a viral despite negative influenza screen. 2. Abnormal CT chest revealing chronic changes in the faces. 3. End-stage renal disease, on hemodialysis. 4. Hypertension. 5. Type 2 diabetes. PLAN: 1. We will continue current support with antibiotics. 2. Nebulized treatments. 3. Continue home medications. 4. Follow clinical course and make further recommendations. 5. Noted so far blood cultures negative. I do appreciate the privilege in sharing in the patient's care. TAMI RAMIREZ MD DR: ALYSIA/ronaldo JOB#: [id number] / [id number]
[2018-12-19] MEDS: SEVELAMER CARBONATE 800 MG TABLET. PO SCH ×3 (06:25→17:37)
[2018-12-19 07:00] VITALS: BP 107/62
--- NOTE | 2018-12-19 07:06 | NUR ---
Pt with complaints of chronic back pain during the noc. Pt given 1 dose of hydrocodone and pt states pain had subsided. No further complaints noted.
[2018-12-19] MEDS: INSULIN LISPRO 300 UNITS/3 ML INSULN.PEN. SQ SCH ×3 (08:00→17:42)
[2018-12-19] MEDS: IPRATRPIUM/ALBUTEROL 0.5/2.5MG 3 ML NEBU. NEB SCH ×6 (08:00→21:10)
--- NOTE | 2018-12-19 08:15 | PDOC ---
PROGRESS NOTES Subjective Subjective Patient reports she feels some better. Got out of bed to chair with PT yesterday. Cough not as bad. Objective Objective Vital Signs Date Time Temp Pulse Resp B/P (MAP) Pulse Ox O2 Delivery O2 Flow Rate FiO2 12/19/18 07:00 98.6 78 16 107/62 (77) 98 Nasal Cannula 2.0 98.6 Intake and Output 12/19/18 07:00 Intake Total 380 ml Balance 380 ml Intake Oral 380 ml Physical Exam Abdomen: Normal bowel sounds, Soft, No tenderness Heart: Regular rate Extremities: No edema General: Alert, Oriented X3, No acute distress Lungs: Other (dry crackles bilateral bases, otherwise CTA) Plan Plan of Care 1. Febrile illness - [id number] chest without new infiltrate. Possible viral illness. Continue Levaquin for now, ID and Pulmonary following. 2. ESRD - continue dialysis as scheduled. 3. DM2 - well controlled, continue insulins. 4. HTN - controlled, continue home medications. 5. debility - continue therapies, patient to go home with daughter when ready for discharge. Comment Review of Relevant I have reviewed the following items cosmo (where applicable) has been applied. Labs Laboratory Tests Test 12/17/18 09:48 12/17/18 11:41 12/17/18 16:28 12/17/18 20:45 Influenza Type A Antigen Negative (NEGATIVE) Influenza Type B Antigen Negative (NEGATIVE) Glucose (Fingerstick) 197 mg/dL (70-99) 235 mg/dL (70-99) 220 mg/dL (70-99) Test 12/18/18 03:25 12/18/18 07:15 12/18/18 12:50 12/18/18 17:14 White Blood Count 12.9 x10^3/uL (4.0-11.0) Red Blood Count 2.93 x10^6/uL (3.50-5.40) Hemoglobin 9.4 g/dL (12.0-15.5) Hematocrit 29.3 % (36.0-47.0) Mean Corpuscular Volume 100 fL (79-100) Mean Corpuscular Hemoglobin 32 pg (25-35) Mean Corpuscular Hemoglobin Concent 32 g/dL (31-37) Red Cell Distribution Width 17.3 % (11.5-14.5) Platelet Count 132 x10^3/uL (140-400) Neutrophils (%) (Auto) 81 % (31-73) Lymphocytes (%) (Auto) 11 % (24-48) Monocytes (%) (Auto) 7 % (0-9) Eosinophils (%) (Auto) 1 % (0-3) Basophils (%) (Auto) 0 % (0-3) Neutrophils # (Auto) 10.4 x10^3uL (1.8-7.7) Lymphocytes # (Auto) 1.4 x10^3/uL (1.0-4.8) Monocytes # (Auto) 0.9 x10^3/uL (0.0-1.1) Eosinophils # (Auto) 0.1 x10^3/uL (0.0-0.7) Basophils # (Auto) 0.0 x10^3/uL (0.0-0.2) Sodium Level 141 mmol/L (136-145) Potassium Level 4.0 mmol/L (3.5-5.1) Chloride Level 101 mmol/L (98-107) Carbon Dioxide Level 26 mmol/L (21-32) Anion Gap 14 (6-14) Blood Urea Nitrogen 63 mg/dL (7-20) Creatinine 8.1 mg/dL (0.6-1.0) Estimated GFR (Cockcroft-Gault) 4.9 Glucose Level 245 mg/dL (70-99) Calcium Level 7.9 mg/dL (8.5-10.1) Glucose (Fingerstick) 175 mg/dL (70-99) 108 mg/dL (70-99) 286 mg/dL (70-99) Test 12/18/18 20:34 12/19/18 07:30 Glucose (Fingerstick) 207 mg/dL (70-99) 111 mg/dL (70-99) Laboratory Tests Test 12/18/18 12:50 12/18/18 17:14 12/18/18 20:34 12/19/18 07:30 Glucose (Fingerstick) 108 mg/dL (70-99) 286 mg/dL (70-99) 207 mg/dL (70-99) 111 mg/dL (70-99) Microbiology 12/16/18 Blood Culture - Preliminary, Resulted NO GROWTH AFTER 2 DAYS Medications Current Medications Albuterol Sulfate (Ventolin Neb Soln) 10 mg 1X ONCE CONT NEB Last administered on 12/16/18 13:39; Start 12/16/18 at 13:30; Stop 12/16/18 at 13:31; Status DC Acetaminophen (Tylenol) 1,000 mg 1X ONCE PO Last administered on 12/16/18 13: 52; Start 12/16/18 at 13:45; Stop 12/16/18 at 13:47; Status DC Levofloxacin/ Dextrose (Levaquin Per Pharmacy) 1 each PRN DAILY PRN MC SEE COMMENTS; Start 12/16/18 at 15:00 Levofloxacin/ Dextrose 100 ml @ 100 mls/hr Q48H IV Last administered on 14:58; Start 12/16/18 at 15:00 Ondansetron HCl (Zofran) 4 mg PRN Q8HRS PRN IV NAUSEA/VOMITING; Start 12/16/18 at 15:00; Stop 12/17/18 at 14:59; Status DC Fentanyl Citrate (Fentanyl 2ml Vial) 50 mcg PRN Q1HR PRN IV PAIN; Start at 15:00; Stop 12/17/18 at 14:59; Status DC Albuterol/ Ipratropium (Duoneb) 3 ml RTQID NEB Last administered on 12/16/18 15 :05; Start 12/16/18 at 16:00; Stop 12/16/18 at 16:40; Status DC Acetaminophen (Tylenol) 650 mg PRN Q6HRS PRN PO MILD PAIN Last administered on 12/17/18 08:26; Start 12/16/18 at 16:30 Amlodipine Besylate (Norvasc) 10 mg DAILY PO Last administered on 12/17/18 08: 26; Start 12/17/18 at 09:00 Aspirin (Children'S Aspirin) 81 mg DAILYWBKFT PO Last administered on 12/17/18 08:26; Start 12/17/18 at 08:00 Cetirizine HCl (ZyrTEC) 10 mg DAILY PO Last administered on 12/17/18 08:27; Start 12/17/18 at 09:00 Clonidine HCl (Catapres) 0.1 mg BID PO Last administered on 12/18/18 20:26; Start 12/16/18 at 21:00 Gabapentin (Neurontin) 200 mg BID PO Last administered on 12/18/18 20:25; Start 12/16/18 at 21:00 Acetaminophen/ Hydrocodone Bitart (Lortab 5/325) 1 tab PRN Q6HRS PRN PO MODERATE-SEVERE PAIN Last administered on 12/18/18 19:33; Start 12/16/18 at 16:30 Lactobacillus Rhamnosus (Culturelle) 1 cap BID PO Last administered on 20:26; Start 12/16/18 at 21:00 Sevelamer Carbonate (Renvela) 1,600 mg [id number] PO Last administered on 12/19/18 06:25; Start 12/16/18 at 18:00 Albuterol Sulfate (Ventolin Neb Soln) 2.5 mg PRN Q6HRS PRN NEB SHORTNESS OF BREATH; Start 12/16/18 at 16:45 Non-Formulary Medication (Alendronate Sodium ) 70 mg Q2WKS PO ; Start 12/30/18 at 09:00; Status UNV Calcium/Vitamin D (Oscal D 500mg/ 200uts) 1 tab DAILY PO Last administered on 08:26; Start 12/17/18 at 09:00 Fluticasone Propionate (Flonase) 2 spray DAILY NS Last administered on 09:32; Start 12/17/18 at 09:00 Hydralazine HCl (Apresoline) 50 mg TID PO Last administered on 12/18/18 20:26; Start 12/16/18 at 17:00 Insulin Glargine (Lantus) 7 units QHS SQ Last administered on 12/17/18 21:47; Start 12/16/18 at 21:00; Stop 12/18/18 at 07:59; Status DC Albuterol/ Ipratropium (Duoneb) 3 ml RTQID NEB Last administered on 12/18/18 20 :01; Start 12/16/18 at 20:00 Labetalol HCl (Trandate) 200 mg DAILY PO Last administered on 12/17/18 08:25; Start 12/17/18 at 09:00 Pantoprazole Sodium (Protonix) 40 mg DAILYAC PO Last administered on 12/17/18at 08:26; Start 12/17/18 at 07:30 Vitamin B Complex/ Vitamin C (Windy-Abby) 1 tab DAILY PO Last administered on 12/17/18at 08:25; Start 12/17/18 at 09:00 Non-Formulary Medication ([guaiFENesin/ CODEINE 100mg/ 10mg] ) 5 ml PRN Q6HRS PRN PO COUGH; Start 12/16/18 at 16:30; Status UNV Insulin Human Lispro (HumaLOG) 0-5 UNITS TIDWMEALS SQ Last administered on at 17:29; Start 12/16/18 at 17:00 Dextrose (Dextrose 50%-Water Syringe) 12.5 gm PRN Q15MIN PRN IV SEE COMMENTS; Start 12/16/18 at 16:45 Zolpidem Tartrate (Ambien) 5 mg PRN QHS PRN PO INSOMNIA; Start 12/17/18 at 09:30 Insulin Glargine (Lantus) 8 units QHS SQ Last administered on 12/18/18at 20:40; Start 12/18/18 at 21:00 Sodium Chloride 1,000 ml @ 1,000 mls/hr Q1H PRN IV hypotension; Start 12/18/18 at 08:58; Stop 12/18/18 at 14:57; Status DC Albumin Human 200 ml @ 200 mls/hr 1X PRN PRN IV Hypotension; Start 12/18/18 at 09:00; Stop 12/18/18 at 14:59; Status DC Sodium Chloride 1,000 ml @ 400 mls/hr Q2H30M PRN IV PATENCY; Start 12/18/18 at 08:58; Stop 12/18/18 at 20:57; Status DC Info (PHARMACY MONITORING -- do not chart) 1 each PRN DAILY PRN MC SEE COMMENTS ; Start 12/18/18 at 09:00; Status UNV Info (PHARMACY MONITORING -- do not chart) 1 each PRN DAILY PRN MC SEE COMMENTS ; Start 12/18/18 at 09:00 Darbepoetin Yeison (Aranesp) 60 mcg Mo SQ Last administered on 12/18/18at 20:27; Start 12/18/18 at 21:00 Active Scripts Active [guaiFENesin/CODEINE 100mg/10mg] 5 ML Liquid 5 Ml PO PRN Q6HRS PRN Proair Respiclick (Albuterol Sulfate) 90 Mcg Aer.pow.ba 1 Puff IH PRN Q6HRS PRN Culturelle (Lactobacillus Rhamnosus Gg) 1 Each Cap.sprink 1 Cap PO BID 30 Days Combivent Respimat Inhal (Ipratropium/Albuterol Sulfate) 4 Gm Aer.w.adap 2 Inh IH QID 30 Days Labetalol Hcl 200 Mg Tablet 1 Tab PO DAILY 30 Days Children's Aspirin (Aspirin) 81 Mg Tab.chew 81 Mg PO DAILYWBKFT 30 Days Reported Lantus (Insulin Glargine,Hum.rec.anlog) 100 Unit/1 Ml Vial 7 SQ HS Novolog (Insulin Aspart) 100 Unit/1 Ml Cartridge 100 Unit SQ TIDBFRMEAL Omeprazole 40 Mg Capsule.dr 40 Mg PO DAILY Hydrocodone-Apap 5-325 (Hydrocodone Bit/Acetaminophen) 1 Each Tablet 1 Tab PO Q6HRS PRN Hydralazine Hcl 50 Mg Tablet 1 Tab PO TID Gabapentin (Gabapentin) 100 Mg Capsule 200 Mg PO BID Cetirizine Hcl 10 Mg Tablet 1 Tab PO DAILY Tylenol (Acetaminophen) 325 Mg Tablet 2 Tab PO PRN Q6HRS PRN Clonidine Hcl 0.1 Mg Tablet 0.1 Mg PO BID Alendronate Sodium 70 Mg Tablet 70 Mg PO Q2WKS Flonase Allergy Relief (Fluticasone Propionate) 9.9 Ml [place].susp 2 Sprays NS DAILY Calcium 600 + Vit D 400 Caplet (Calcium Carbonate/Vitamin D3) 1 Each Tablet 1 Each PO DAILY Renvela (Sevelamer Carbonate) 800 Mg Tablet 2 Tab PO [id number] Norvasc (Amlodipine Besylate) 10 Mg Tablet 10 Mg PO DAILY Windy-Abby Rx Tablet (Vit B Cmplx 3/Fa/Vit C/Biotin) 1 Each Tablet 1 Each PO DAILY Vitals/I & O Vital Sign - Last 24 Hours 12/18/18 12/18/18 12/18/18 12/18/18 08:42 08:43 08:45 08:45 Pulse 88 88 88 88 B/P (MAP) 118/50 118/50 118/50 118/50 12/18/18 12/18/18 12/18/18 12/18/18 14:57 15:00 15:03 19:33 Temp 99.3 99.3 Pulse 95 95 Resp 22 B/P (MAP) 167/60 167/60 (95) Pulse Ox 98 O2 Delivery Nasal Cannula Nasal Cannula Room Air O2 Flow Rate 2.0 2.0 12/18/18 12/18/18 12/18/18 12/18/18 19:36 19:45 20:02 20:26 Temp 101.8 101.8 Pulse 96 96 Resp 16 B/P (MAP) 156/52 (86) 156/52 Pulse Ox 94 96 O2 Delivery Nasal Cannula Nasal Cannula Nasal Cannula O2 Flow Rate 2.0 2.0 2.0 12/18/18 12/18/18 12/18/18 12/19/18 20:26 20:27 23:28 03:32 Temp 99.3 98.0 99.3 98.0 Pulse 96 86 76 Resp 20 18 B/P (MAP) 156/52 141/52 (81) 142/52 (82) Pulse Ox 98 97 O2 Delivery Room Air Nasal Cannula Nasal Cannula O2 Flow Rate 2.0 2.0 12/19/18 07:00 Temp 98.6 98.6 Pulse 78 Resp 16 B/P (MAP) 107/62 (77) Pulse Ox 98 O2 Delivery Nasal Cannula O2 Flow Rate 2.0 Intake and Output 12/18/18 12/18/18 12/19/18 15:00 23:00 07:00 Intake Total 380 ml Balance 380 ml ARELI MATIAS MD Dec 19, 2018 08:15
[2018-12-19] MEDS ORDERED: IPRATRPIUM/ALBUTEROL 0.5/2.5MG 3 ML NEBU. NEB STA (08:50)
--- NOTE | 2018-12-19 08:53 | NUR ---
SW following pt. PT/OT recommends home with assistance/home with home health. SW will arrange HH upon dc if ordered by Physician.
[2018-12-19] MEDS: PANTOPRAZOLE 40 MG TABLET.DR. PO SCH (08:55)
[2018-12-19] MEDS: LACTOBACILLUS RHAMNOSUS GG 1 CAPSULE. PO SCH ×2 (08:55→21:23)
[2018-12-19] MEDS: GABAPENTIN 100 MG CAPSULE. PO SCH ×2 (08:55→21:23)
[2018-12-19] MEDS: FOLIC/VIT B COMP W-C (RENAL) TABLET. PO SCH (08:55)
[2018-12-19] MEDS: CETIRIZINE HCL 10 MG TABLET. PO SCH (08:55)
[2018-12-19] MEDS: CALCIUM CARB/VIT D3 500/200 TABLET. PO SCH (08:55)
[2018-12-19] MEDS: ASPIRIN CHEWABLE 81 MG TABLET. PO SCH (08:56)
[2018-12-19] MEDS: FLUTICASONE 50MCG/NASAL SPRAY 16GM BOTTLE. NS SCH (08:56)
--- NOTE | 2018-12-19 09:19 | PDOC ---
PULMONARY PROGRESS NOTES Subjective Patient feels better and not more SOA Vitals Vital Signs Date Time Temp Pulse Resp B/P (MAP) Pulse Ox O2 Delivery O2 Flow Rate FiO2 12/19/18 08:57 78 107/62 12/19/18 07:00 98.6 16 98 Nasal Cannula 2.0 98.6 ROS: No Nausea, No Chest Pain, No Abdominal Pain, No Increase Cough General: Alert, No acute distress Lungs: Crackles Cardiovascular: S1, S2 Abdomen: Soft, Non-tender Neuro Exam: Alert Extremities: No Edema Skin: Warm Labs Laboratory Tests Test 12/17/18 09:48 12/17/18 11:41 12/17/18 16:28 12/17/18 20:45 Influenza Type A Antigen Negative (NEGATIVE) Influenza Type B Antigen Negative (NEGATIVE) Glucose (Fingerstick) 197 mg/dL (70-99) 235 mg/dL (70-99) 220 mg/dL (70-99) Test 12/18/18 03:25 12/18/18 07:15 12/18/18 12:50 12/18/18 17:14 White Blood Count 12.9 x10^3/uL (4.0-11.0) Red Blood Count 2.93 x10^6/uL (3.50-5.40) Hemoglobin 9.4 g/dL (12.0-15.5) Hematocrit 29.3 % (36.0-47.0) Mean Corpuscular Volume 100 fL (79-100) Mean Corpuscular Hemoglobin 32 pg (25-35) Mean Corpuscular Hemoglobin Concent 32 g/dL (31-37) Red Cell Distribution Width 17.3 % (11.5-14.5) Platelet Count 132 x10^3/uL (140-400) Neutrophils (%) (Auto) 81 % (31-73) Lymphocytes (%) (Auto) 11 % (24-48) Monocytes (%) (Auto) 7 % (0-9) Eosinophils (%) (Auto) 1 % (0-3) Basophils (%) (Auto) 0 % (0-3) Neutrophils # (Auto) 10.4 x10^3uL (1.8-7.7) Lymphocytes # (Auto) 1.4 x10^3/uL (1.0-4.8) Monocytes # (Auto) 0.9 x10^3/uL (0.0-1.1) Eosinophils # (Auto) 0.1 x10^3/uL (0.0-0.7) Basophils # (Auto) 0.0 x10^3/uL (0.0-0.2) Sodium Level 141 mmol/L (136-145) Potassium Level 4.0 mmol/L (3.5-5.1) Chloride Level 101 mmol/L (98-107) Carbon Dioxide Level 26 mmol/L (21-32) Anion Gap 14 (6-14) Blood Urea Nitrogen 63 mg/dL (7-20) Creatinine 8.1 mg/dL (0.6-1.0) Estimated GFR (Cockcroft-Gault) 4.9 Glucose Level 245 mg/dL (70-99) Calcium Level 7.9 mg/dL (8.5-10.1) Glucose (Fingerstick) 175 mg/dL (70-99) 108 mg/dL (70-99) 286 mg/dL (70-99) Test 12/18/18 20:34 12/19/18 07:30 Glucose (Fingerstick) 207 mg/dL (70-99) 111 mg/dL (70-99) Laboratory Tests Test 12/18/18 12:50 12/18/18 17:14 12/18/18 20:34 12/19/18 07:30 Glucose (Fingerstick) 108 mg/dL (70-99) 286 mg/dL (70-99) 207 mg/dL (70-99) 111 mg/dL (70-99) Medications Active Scripts Medications Dose Route/Sig Max Daily Dose Days Date Category Lantus (Insulin Glargine,Hum.rec.anlog) 100 Unit/1 Ml Vial 7 SQ HS 12/05/18 Reported Novolog (Insulin Aspart) 100 Unit/1 Ml Cartridge 100 Unit SQ TIDBFRMEAL 12/05/18 Reported [guaiFENesin/CODEINE 100mg/10mg] 5 ML Liquid 5 Ml PO PRN Q6HRS PRN 11/10/18 Rx Proair Respiclick (Albuterol Sulfate) 90 Mcg Aer.pow.ba 1 Puff IH PRN Q6HRS PRN 04/10/18 Rx Culturelle (Lactobacillus Rhamnosus Gg) 1 Each Cap.sprink 1 Cap PO BID 30 12/15/17 Rx Combivent Respimat Inhal (Ipratropium/Albuterol Sulfate) 4 Gm Aer.w.adap 2 Inh IH QID 30 09/02/17 Rx Labetalol Hcl 200 Mg Tablet 1 Tab PO DAILY 30 09/02/17 Rx Omeprazole 40 Mg Capsule.dr 40 Mg PO DAILY 09/01/17 Reported Hydrocodone-Apap 5-325 (Hydrocodone Bit/Acetaminophen) 1 Each Tablet 1 Tab PO Q6HRS PRN 09/01/17 Reported Hydralazine Hcl 50 Mg Tablet 1 Tab PO TID 04/08/17 Reported Gabapentin (Gabapentin) 100 Mg Capsule 200 Mg PO BID 04/08/17 Reported Cetirizine Hcl 10 Mg Tablet 1 Tab PO DAILY 10/29/16 Reported Tylenol (Acetaminophen) 325 Mg Tablet 2 Tab PO PRN Q6HRS PRN 10/29/16 Reported Clonidine Hcl 0.1 Mg Tablet 0.1 Mg PO BID 09/17/16 Reported Alendronate Sodium 70 Mg Tablet 70 Mg PO Q2WKS 09/17/16 Reported Flonase Allergy Relief (Fluticasone Propionate) 9.9 Ml [place].susp 2 Sprays NS DAILY 09/17/16 Reported Children's Aspirin (Aspirin) 81 Mg Tab.chew 81 Mg PO DAILYWBKFT 30 11/04/15 Rx Calcium 600 + Vit D 400 Caplet (Calcium Carbonate/Vitamin D3) 1 Each Tablet 1 Each PO DAILY 10/24/15 Reported Renvela (Sevelamer Carbonate) 800 Mg Tablet 2 Tab PO [id number] 12/21/14 Reported Norvasc (Amlodipine Besylate) 10 Mg Tablet 10 Mg PO DAILY 11/11/13 Reported Windy-Abby Rx Tablet (Vit B Cmplx 3/Fa/Vit C/Biotin) 1 Each Tablet 1 Each PO DAILY 11/11/13 Reported Impression . IMPRESSION: 1. Fever, suspect possibly secondary to a viral despite negative influenza screen. 2. Abnormal CT chest revealing chronic changes in the faces. 3. End-stage renal disease, on hemodialysis. 4. Hypertension. 5. Type 2 diabetes. Plan . Respiratory status compensated continue antibiotics per infectious disease will add incentive spirometry TAMI RAMIREZ MD Dec 19, 2018 09:19
--- NOTE | 2018-12-19 10:16 | PDOC ---
Infectious Disease Note Subjective: Subjective Pt says is not feeling good no fevers has cough but unable to bring any phlegm some headache some abdo discomfort nausea and diarrhea resolved no apetite no bm since last sat ROS: ROS Negative except for above. Vital Signs: Vital Signs Vital Signs Date Time Temp Pulse Resp B/P (MAP) Pulse Ox O2 Delivery O2 Flow Rate FiO2 12/19/18 08:57 78 107/62 12/19/18 08:00 Nasal Cannula 2.0 12/19/18 07:00 98.6 16 98 98.6 Physical Exam: PHYSICAL EXAM GENERAL: Alert, oriented x3, nontoxic appearing female cooperative, in no acute distress. HEENT: Normocephalic, atraumatic, anicteric. No thrush. Oral mucosa moist. NECK: Supple. No JVD. LUNGS: Decreased breath sounds at bases. CARDIOVASCULAR: S1, S2 with no gallops or murmurs. ABDOMEN: Soft, nontender, nondistended. EXTREMITIES: No edema, no cyanosis. NEUROLOGIC: Alert and oriented x 3. Grossly nonfocal. PSYCHIATRIC: Cooperative, appropriate mood and affect. Medications: Inpatient Meds: Current Medications Medications (Trade) Dose Ordered Sig/Bill Start Time Stop Time Status Last Admin Dose Admin Acetaminophen (Tylenol) 650 mg PRN Q6HRS PRN 12/16/18 16:30 12/17/18 08:26 650 MG Acetaminophen/ Hydrocodone Bitart (Lortab 5/325) 1 tab PRN Q6HRS PRN 12/16/18 16:30 12/18/18 19:33 1 TAB Albumin Human 200 ml @ 200 mls/hr 1X PRN PRN 12/18/18 09:00 12/18/18 14:59 DC Albuterol Sulfate (Ventolin Neb Soln) 2.5 mg PRN Q6HRS PRN 12/16/18 16:45 Albuterol/ Ipratropium (Duoneb) 3 ml RTQID 12/19/18 12:00 Amlodipine Besylate (Norvasc) 10 mg DAILY 12/17/18 09:00 12/17/18 08:26 10 MG Aspirin (Children'S Aspirin) 81 mg DAILYWBKFT 12/17/18 08:00 12/19/18 08:56 81 MG Calcium/Vitamin D (Oscal D 500mg/ 200uts) 1 tab DAILY 12/17/18 09:00 12/19/18 08:55 1 TAB Cetirizine HCl (ZyrTEC) 10 mg DAILY 12/17/18 09:00 12/19/18 08:55 10 MG Clonidine HCl (Catapres) 0.1 mg BID 12/16/18 21:00 12/18/18 20:26 0.1 MG Darbepoetin Yeison (Aranesp) 60 mcg Mo 12/18/18 21:00 12/18/18 20:27 60 MCG Dextrose (Dextrose 50%-Water Syringe) 12.5 gm PRN Q15MIN PRN 12/16/18 16:45 Fentanyl Citrate (Fentanyl 2ml Vial) 50 mcg PRN Q1HR PRN 12/16/18 15:00 12/17/18 14:59 DC Fluticasone Propionate (Flonase) 2 spray DAILY 12/17/18 09:00 12/19/18 08:56 2 SPRAY Gabapentin (Neurontin) 200 mg BID 12/16/18 21:00 12/19/18 08:55 200 MG Hydralazine HCl (Apresoline) 50 mg TID 12/16/18 17:00 12/18/18 20:26 50 MG Info (PHARMACY MONITORING -- do not chart) 1 each PRN DAILY PRN 12/18/18 09:00 Insulin Glargine (Lantus) 8 units QHS 12/18/18 21:00 12/18/18 20:40 8 UNITS Insulin Human Lispro (HumaLOG) 0-5 UNITS TIDWMEALS 12/16/18 17:00 12/18/18 17:29 4 UNITS Labetalol HCl (Trandate) 200 mg DAILY 12/17/18 09:00 12/17/18 08:25 200 MG Lactobacillus Rhamnosus (Culturelle) 1 cap BID 12/16/18 21:00 12/19/18 08:55 1 CAP Levofloxacin/ Dextrose 100 ml @ 100 mls/hr Q48H 12/16/18 15:00 12/18/18 14:58 100 MLS/HR Levofloxacin/ Dextrose (Levaquin Per Pharmacy) 1 each PRN DAILY PRN 12/16/18 15:00 Non-Formulary Medication (Alendronate Sodium ) 70 mg Q2WKS 12/30/18 09:00 UNV Non-Formulary Medication ([guaiFENesin/ CODEINE 100mg/ 10mg] ) 5 ml PRN Q6HRS PRN 12/16/18 16:30 UNV Ondansetron HCl (Zofran) 4 mg PRN Q8HRS PRN 12/16/18 15:00 12/17/18 14:59 DC Pantoprazole Sodium (Protonix) 40 mg DAILYAC 12/17/18 07:30 12/19/18 08:55 40 MG Sevelamer Carbonate (Renvela) 1,600 mg [id number] 12/16/18 18:00 12/19/18 06:25 1,600 MG Sodium Chloride 1,000 ml @ 400 mls/hr Q2H30M PRN 12/18/18 08:58 12/18/18 20:57 DC Vitamin B Complex/ Vitamin C ([place]indy-Abby) 1 tab DAILY 12/17/18 09:00 12/19/18 08:55 1 TAB Zolpidem Tartrate (Ambien) 5 mg PRN QHS PRN 12/17/18 09:30 Labs: Lab Laboratory Tests Test 12/18/18 12:50 12/18/18 17:14 12/18/18 20:34 12/19/18 07:30 Glucose (Fingerstick) 108 mg/dL (70-99) 286 mg/dL (70-99) 207 mg/dL (70-99) 111 mg/dL (70-99) Objective: Assessment: Fever resolved, etiology unclear Leucocytosis h/o recurrent pneumonia,CT neg for consolidation ESRD GERD Plan: Plan of Care cont levaquin renal dosing f/u cult and labs in am KUB cont supportive care d/w Daughter at bedside MADHAVI REAVES MD Dec 19, 2018 10:16
[2018-12-19 11:00] VITALS: BP 132/49
[2018-12-19] MEDS: LABETALOL HCL 200 MG TABLET PO SCH (12:39)
[2018-12-19] MEDS: amLODIPine BESYLATE 10 MG TABLET PO SCH (12:40)
[2018-12-19] MEDS: cloNIDine HCL 0.1 MG TABLET PO SCH ×2 (12:40→21:23)
[2018-12-19 14:25] VITALS: BP 104/40
--- NOTE | 2018-12-19 16:37 | RAD ---
EXAM: Supine AP view of the abdomen DATE: 12/19/2018 3:28 PM INDICATION: abdomen pain COMPARISON: CT 12/04/2017 FINDINGS: No abnormal small or large bowel dilatation. Moderate colonic stool content. No abnormal soft tissue mass effect. Evaluation for free intraperitoneal gas is limited on this supine exam. Atherosclerotic vascular calcifications are seen. Also degenerative changes are seen. Cholecystectomy clips are seen. IMPRESSION: 1. No evidence for bowel obstruction. Electronically signed by: Julio Cesar Ibarra MD (12/19/2018 4:34 PM) [facility]
[2018-12-19] MEDS: HYDROcodone/APAP 5/325MG 1 TAB TABLET PO PRN (17:37)
[2018-12-19 19:05] VITALS: BP 134/56
[2018-12-19] MEDS: INSULIN GLARGINE 300 UNITS/3 ML INSULN.PEN. SQ SCH (21:31)
[2018-12-19 23:05] VITALS: BP 134/49
[2018-12-20 03:05] VITALS: BP 142/54
[2018-12-20] MEDS: SEVELAMER CARBONATE 800 MG TABLET. PO SCH ×3 (06:36→19:07)
[2018-12-20 07:00] VITALS: BP 128/57
[2018-12-20] MEDS: IPRATRPIUM/ALBUTEROL 0.5/2.5MG 3 ML NEBU. NEB SCH ×4 (08:00→21:27)
[2018-12-20] MEDS: INSULIN LISPRO 300 UNITS/3 ML INSULN.PEN. SQ SCH ×3 (08:46→17:50)
[2018-12-20] MEDS: amLODIPine BESYLATE 10 MG TABLET PO SCH (09:00)
[2018-12-20] MEDS: cloNIDine HCL 0.1 MG TABLET PO SCH ×2 (09:00→20:36)
[2018-12-20] MEDS: LABETALOL HCL 200 MG TABLET PO SCH (09:00)
[2018-12-20] MEDS ORDERED: IV NORMAL SALINE 1000ML BAG 1,000 ML IV PRN ×2 (09:08)
[2018-12-20] MEDS ORDERED: DIALYSIS PATIENT. MC PRN (09:15)
--- NOTE | 2018-12-20 10:00 | NUR ---
Patient is scheduled to have dialysis this morning. This nurse educated the patient that she can take the other pills and will hold the antihypertensives. However, she requested to take her medicines later after hemodialysis.
--- NOTE | 2018-12-20 10:14 | PDOC ---
PULMONARY PROGRESS NOTES Subjective Patient feels better and not more SOA Vitals Vital Signs Date Time Temp Pulse Resp B/P (MAP) Pulse Ox O2 Delivery O2 Flow Rate FiO2 12/20/18 07:00 98.2 79 18 128/57 (80) 92 Nasal Cannula 2.0 98.2 ROS: No Nausea, No Chest Pain, No Abdominal Pain, No Increase Cough General: Alert, No acute distress Lungs: Crackles Cardiovascular: S1, S2 Abdomen: Soft, Non-tender Neuro Exam: Alert Extremities: No Edema Skin: Warm Labs Laboratory Tests Test 12/18/18 12:50 12/18/18 17:14 12/18/18 20:34 12/19/18 07:30 Glucose (Fingerstick) 108 mg/dL (70-99) 286 mg/dL (70-99) 207 mg/dL (70-99) 111 mg/dL (70-99) Test 12/19/18 11:29 12/19/18 16:50 12/19/18 20:52 12/20/18 07:07 Glucose (Fingerstick) 221 mg/dL (70-99) 161 mg/dL (70-99) 140 mg/dL (70-99) 199 mg/dL (70-99) Laboratory Tests Test 12/19/18 11:29 12/19/18 16:50 12/19/18 20:52 12/20/18 07:07 Glucose (Fingerstick) 221 mg/dL (70-99) 161 mg/dL (70-99) 140 mg/dL (70-99) 199 mg/dL (70-99) Medications Active Scripts Medications Dose Route/Sig Max Daily Dose Days Date Category Lantus (Insulin Glargine,Hum.rec.anlog) 100 Unit/1 Ml Vial 7 SQ HS 12/05/18 Reported Novolog (Insulin Aspart) 100 Unit/1 Ml Cartridge 100 Unit SQ TIDBFRMEAL 12/05/18 Reported [guaiFENesin/CODEINE 100mg/10mg] 5 ML Liquid 5 Ml PO PRN Q6HRS PRN 11/10/18 Rx Proair Respiclick (Albuterol Sulfate) 90 Mcg [place].pow.ba 1 Puff IH PRN Q6HRS PRN 04/10/18 Rx Culturelle (Lactobacillus Rhamnosus Gg) 1 Each Cap.sprink 1 Cap PO BID 30 12/15/17 Rx Combivent Respimat Inhal (Ipratropium/Albuterol Sulfate) 4 Gm Aer.w.adap 2 Inh IH QID 30 09/02/17 Rx Labetalol Hcl 200 Mg Tablet 1 Tab PO DAILY 30 09/02/17 Rx Omeprazole 40 Mg Capsule.dr 40 Mg PO DAILY 09/01/17 Reported Hydrocodone-Apap 5-325 (Hydrocodone Bit/Acetaminophen) 1 Each Tablet 1 Tab PO Q6HRS PRN 09/01/17 Reported Hydralazine Hcl 50 Mg Tablet 1 Tab PO TID 04/08/17 Reported Gabapentin (Gabapentin) 100 Mg Capsule 200 Mg PO BID 04/08/17 Reported Cetirizine Hcl 10 Mg Tablet 1 Tab PO DAILY 10/29/16 Reported Tylenol (Acetaminophen) 325 Mg Tablet 2 Tab PO PRN Q6HRS PRN 10/29/16 Reported Clonidine Hcl 0.1 Mg Tablet 0.1 Mg PO BID 09/17/16 Reported Alendronate Sodium 70 Mg Tablet 70 Mg PO Q2WKS 09/17/16 Reported Flonase Allergy Relief (Fluticasone Propionate) 9.9 Ml [place].susp 2 Sprays NS DAILY 09/17/16 Reported Children's Aspirin (Aspirin) 81 Mg Tab.chew 81 Mg PO [id number] 30 11/04/15 Rx Calcium 600 + Vit D 400 Caplet (Calcium Carbonate/Vitamin D3) 1 Each Tablet 1 Each PO DAILY 10/24/15 Reported Renvela (Sevelamer Carbonate) 800 Mg Tablet 2 Tab PO [id number] 12/21/14 Reported Norvasc (Amlodipine Besylate) 10 Mg Tablet 10 Mg PO DAILY 11/11/13 Reported Windy-Abby Rx Tablet (Vit B Cmplx 3/Fa/Vit C/Biotin) 1 Each Tablet 1 Each PO DAILY 11/11/13 Reported Impression . IMPRESSION: 1. Fever, suspect possibly secondary to a viral despite negative influenza screen. 2. Abnormal CT chest revealing chronic changes in the faces. 3. End-stage renal disease, on hemodialysis. 4. Hypertension. 5. Type 2 diabetes. Plan . Respiratory status compensated continue antibiotics per infectious disease will add incentive spirometry TAMI RAMIREZ MD Dec 20, 2018 10:14
--- NOTE | 2018-12-20 11:38 | PDOC ---
Infectious Disease Note Subjective: Subjective Pt says is still feeling weak no fevers has cough but unable to bring any phlegm no headache some abdo discomfort nausea and diarrhea resolved no apetite had bm 12/19 ROS: ROS Negative except for above. Vital Signs: Vital Signs Vital Signs Date Time Temp Pulse Resp B/P (MAP) Pulse Ox O2 Delivery O2 Flow Rate FiO2 12/20/18 10:59 Nasal Cannula 3.0 12/20/18 07:00 98.2 79 18 128/57 (80) 92 98.2 Physical Exam: PHYSICAL EXAM GENERAL: Alert, oriented x3, nontoxic appearing female cooperative, in no acute distress. HEENT: Normocephalic, atraumatic, anicteric. No thrush. Oral mucosa moist. NECK: Supple. No JVD. LUNGS: Decreased breath sounds at bases. CARDIOVASCULAR: S1, S2 with no gallops or murmurs. ABDOMEN: Soft, nontender, nondistended. EXTREMITIES: No edema, no cyanosis. NEUROLOGIC: Alert and oriented x 3. Grossly nonfocal. PSYCHIATRIC: Cooperative, appropriate mood and affect. Medications: Inpatient Meds: Current Medications Medications (Trade) Dose Ordered Sig/Bill Start Time Stop Time Status Last Admin Dose Admin Acetaminophen (Tylenol) 650 mg PRN Q6HRS PRN 12/16/18 16:30 12/17/18 08:26 650 MG Acetaminophen/ Hydrocodone Bitart (Lortab 5/325) 1 tab PRN Q6HRS PRN 12/16/18 16:30 12/19/18 17:37 1 TAB Albumin Human 200 ml @ 200 mls/hr 1X PRN PRN 12/18/18 09:00 12/18/18 14:59 DC Albuterol Sulfate (Ventolin Neb Soln) 2.5 mg PRN Q6HRS PRN 12/16/18 16:45 Albuterol/ Ipratropium (Duoneb) 3 ml RTQID 12/19/18 12:00 12/19/18 17:30 DC 12/19/18 12:38 3 ML Amlodipine Besylate (Norvasc) 10 mg DAILY 12/17/18 09:00 12/19/18 12:40 10 MG Aspirin (Children'S Aspirin) 81 mg DAILYWBKFT 12/17/18 08:00 3/5/19 08:56 81 MG Calcium/Vitamin D (Oscal D 500mg/ 200uts) 1 tab DAILY 12/17/18 09:00 12/19/18 08:55 1 TAB Cetirizine HCl (ZyrTEC) 10 mg DAILY 12/17/18 09:00 12/19/18 08:55 10 MG Clonidine HCl (Catapres) 0.1 mg BID 12/16/18 21:00 12/19/18 21:23 0.1 MG Darbepoetin Yeison (Aranesp) 60 mcg Mo 12/18/18 21:00 12/18/18 20:27 60 MCG Dextrose (Dextrose 50%-Water Syringe) 12.5 gm PRN Q15MIN PRN 12/16/18 16:45 Fentanyl Citrate (Fentanyl 2ml Vial) 50 mcg PRN Q1HR PRN 12/16/18 15:00 12/17/18 14:59 DC Fluticasone Propionate (Flonase) 2 spray DAILY 12/17/18 09:00 12/19/18 08:56 2 SPRAY Gabapentin (Neurontin) 200 mg BID 12/16/18 21:00 12/19/18 21:23 200 MG Hydralazine HCl (Apresoline) 50 mg TID 12/16/18 17:00 12/19/18 21:22 50 MG Info (PHARMACY MONITORING -- do not chart) 1 each PRN DAILY PRN 12/20/18 09:15 Insulin Glargine (Lantus) 8 units QHS 12/18/18 21:00 12/19/18 21:31 8 UNITS Insulin Human Lispro (HumaLOG) 0-5 UNITS TIDWMEALS 12/16/18 17:00 12/20/18 08:46 2 UNITS Labetalol HCl (Trandate) 200 mg DAILY 12/17/18 09:00 12/19/18 12:39 200 MG Lactobacillus Rhamnosus (Culturelle) 1 cap BID 12/16/18 21:00 12/19/18 21:23 1 CAP Levofloxacin/ Dextrose 100 ml @ 100 mls/hr Q48H 12/16/18 15:00 12/18/18 14:58 100 MLS/HR Levofloxacin/ Dextrose (Levaquin Per Pharmacy) 1 each PRN DAILY PRN 12/16/18 15:00 Non-Formulary Medication (Alendronate Sodium ) 70 mg Q2WKS 12/30/18 09:00 UNV Non-Formulary Medication ([guaiFENesin/ CODEINE 100mg/ 10mg] ) 5 ml PRN Q6HRS PRN 12/16/18 16:30 UNV Ondansetron HCl (Zofran) 4 mg PRN Q8HRS PRN 12/16/18 15:00 12/17/18 14:59 DC Pantoprazole Sodium (Protonix) 40 mg DAILYAC 12/17/18 07:30 12/19/18 08:55 40 MG Sevelamer Carbonate (Renvela) 1,600 mg [id number] 12/16/18 18:00 12/20/18 06:36 1,600 MG Sodium Chloride 1,000 ml @ 400 mls/hr Q2H30M PRN 12/20/18 09:08 12/20/18 21:07 Vitamin B Complex/ Vitamin C (Windy-Abby) 1 tab DAILY 12/17/18 09:00 12/19/18 08:55 1 TAB Zolpidem Tartrate (Ambien) 5 mg PRN QHS PRN 12/17/18 09:30 Labs: Lab Laboratory Tests Test 12/19/18 16:50 12/19/18 20:52 12/20/18 07:07 Glucose (Fingerstick) 161 mg/dL (70-99) 140 mg/dL (70-99) 199 mg/dL (70-99) Objective: Assessment: Fever resolved, etiology unclear Leucocytosis Nausea, vomiting ,diarrhea prior to admission now resolved h/o recurrent pneumonia,CT neg for consolidation,still has some cough ESRD GERD Plan: Plan of Care cont levaquin renal dosing f/u cult and labs in am cbc today cont supportive care MADHAVI REAVES MD Dec 20, 2018 11:38
--- NOTE | 2018-12-20 11:44 | PDOC ---
SUBJECTIVE ROS Seen on HD, states have been feeling tired No problems on HD OBJECTIVE Vital Signs Vital Signs Date Time Temp Pulse Resp B/P (MAP) Pulse Ox O2 Delivery O2 Flow Rate FiO2 12/20/18 10:59 Nasal Cannula 3.0 12/20/18 07:00 98.2 79 18 128/57 (80) 92 98.2 I & 0 Intake and Output 12/20/18 07:00 Intake Total 760 ml Balance 760 ml Intake Oral 760 ml # Voids 1 PHYSICAL EXAM Physical Exam GENERAL - NAD HEENT: On O2 by NC . NECK supple LUNGS: Decreased breath sound at bases. CARDIAC: Without S3 or rub. ABDOMEN: Soft, nontender, no bruits. EXTREMITIES: Without edema. DIAGNOSIS/ASSESSMENT Assessment & Plan ESRD- MWF Seen on HD, tolerating well Continue as ordered, jone Crump Fever/Leucocytosis/Recurrent pneumonia Frequent Hospitalizations On Abx ,CT neg for consolidation Anemia- Hgb stable Aranesp as ordered DM- as per primary HTN-On Norvasc 10mg, Labetalol 200mg BID, Clonidine 0.1mg BID and Hydralazine 50mg TID COMMENT/RELEVANT DATA Meds Current Medications Medications (Trade) Dose Ordered Sig/Bill Start Time Stop Time Status Last Admin Dose Admin Acetaminophen (Tylenol) 650 mg PRN Q6HRS PRN 12/16/18 16:30 12/17/18 08:26 650 MG Acetaminophen/ Hydrocodone Bitart (Lortab 5/325) 1 tab PRN Q6HRS PRN 12/16/18 16:30 12/19/18 17:37 1 TAB Albumin Human 200 ml @ 200 mls/hr 1X PRN PRN 12/18/18 09:00 12/18/18 14:59 DC Albuterol Sulfate (Ventolin Neb Soln) 2.5 mg PRN Q6HRS PRN 12/16/18 16:45 Albuterol/ Ipratropium (Duoneb) 3 ml RTQID 12/19/18 12:00 12/19/18 17:30 DC 12/19/18 12:38 3 ML Amlodipine Besylate (Norvasc) 10 mg DAILY 12/17/18 09:00 12/19/18 12:40 10 MG Aspirin (Children'S Aspirin) 81 mg DAILYWBKFT 12/17/18 08:00 12/19/18 08:56 81 MG Calcium/Vitamin D (Oscal D 500mg/ 200uts) 1 tab DAILY 12/17/18 09:00 12/19/18 08:55 1 TAB Cetirizine HCl (ZyrTEC) 10 mg DAILY 12/17/18 09:00 12/19/18 08:55 10 MG Clonidine HCl (Catapres) 0.1 mg BID 12/16/18 21:00 12/19/18 21:23 0.1 MG Darbepoetin Yeison (Aranesp) 60 mcg Mo 12/18/18 21:00 12/18/18 20:27 60 MCG Dextrose (Dextrose 50%-Water Syringe) 12.5 gm PRN Q15MIN PRN 12/16/18 16:45 Fentanyl Citrate (Fentanyl 2ml Vial) 50 mcg PRN Q1HR PRN 12/16/18 15:00 12/17/18 14:59 DC Fluticasone Propionate (Flonase) 2 spray DAILY 12/17/18 09:00 12/19/18 08:56 2 SPRAY Gabapentin (Neurontin) 200 mg BID 12/16/18 21:00 12/19/18 21:23 200 MG Hydralazine HCl (Apresoline) 50 mg TID 12/16/18 17:00 12/19/18 21:22 50 MG Info (PHARMACY MONITORING -- do not chart) 1 each PRN DAILY PRN 12/20/18 09:15 Insulin Glargine (Lantus) 8 units QHS 12/18/18 21:00 12/19/18 21:31 8 UNITS Insulin Human Lispro (HumaLOG) 0-5 UNITS TIDWMEALS 12/16/18 17:00 12/20/18 08:46 2 UNITS Labetalol HCl (Trandate) 200 mg DAILY 12/17/18 09:00 12/19/18 12:39 200 MG Lactobacillus Rhamnosus (Culturelle) 1 cap BID 12/16/18 21:00 12/19/18 21:23 1 CAP Levofloxacin/ Dextrose 100 ml @ 100 mls/hr Q48H 12/16/18 15:00 12/18/18 14:58 100 MLS/HR Levofloxacin/ Dextrose (Levaquin Per Pharmacy) 1 each PRN DAILY PRN 12/16/18 15:00 Non-Formulary Medication (Alendronate Sodium ) 70 mg Q2WKS 12/30/18 09:00 UNV Non-Formulary Medication ([guaiFENesin/ CODEINE 100mg/ 10mg] ) 5 ml PRN Q6HRS PRN 12/16/18 16:30 UNV Ondansetron HCl (Zofran) 4 mg PRN Q8HRS PRN 12/16/18 15:00 12/17/18 14:59 DC Pantoprazole Sodium (Protonix) 40 mg DAILYAC 12/17/18 07:30 12/19/18 08:55 40 MG Sevelamer Carbonate (Renvela) 1,600 mg [id number] 12/16/18 18:00 12/20/18 06:36 1,600 MG Sodium Chloride 1,000 ml @ 400 mls/hr Q2H30M PRN 12/20/18 09:08 12/20/18 21:07 Vitamin B Complex/ Vitamin C (Windy-Abby) 1 tab DAILY 12/17/18 09:00 12/19/18 08:55 1 TAB Zolpidem Tartrate (Ambien) 5 mg PRN QHS PRN 12/17/18 09:30 Lab Laboratory Tests Test 12/19/18 16:50 12/19/18 20:52 12/20/18 07:07 Glucose (Fingerstick) 161 mg/dL (70-99) 140 mg/dL (70-99) 199 mg/dL (70-99) Results All relevant outside records, renal labs, imaging studies, telemetry/EKG's were reviewed. XAVIER VELA MD Dec 20, 2018 11:44
[2018-12-20 12:27] LABS: BASO # 0.1 x10^3/uL (0.0-0.2); BASO % 1 % (0-3); EOS # 0.1 x10^3/uL (0.0-0.7); EOS % 2 % (0-3); HEMATOCRIT 30.4 % (36.0-47.0); LYMPH % 10 % (24-48); MEAN CORPUSCULAR HEMOGLOBIN 32 pg (25-35); MEAN CORPUSCULAR HGB CONC 33 g/dL (31-37); MEAN CORPUSCULAR VOLUME 98 fL (79-100); MONO # 0.7 x10^3/uL (0.0-1.1); MONO % 7 % (0-9); NEUT % 81 % (31-73); PLATELET COUNT 123 x10^3/uL (140-400); RED CELL DISTRIBUTION WIDTH 16.8 % (11.5-14.5); WHITE BLOOD COUNT 9.9 x10^3/uL (4.0-11.0)
--- NOTE | 2018-12-20 12:50 | PDOC ---
PROGRESS NOTES Subjective Subjective Patient feels a little better, still feels weak and tired. Objective Objective Vital Signs Date Time Temp Pulse Resp B/P (MAP) Pulse Ox O2 Delivery O2 Flow Rate FiO2 12/20/18 10:59 Nasal Cannula 3.0 12/20/18 07:00 98.2 79 18 128/57 (80) 92 98.2 Intake and Output 12/20/18 07:00 Intake Total 760 ml Balance 760 ml Intake Oral 760 ml # Voids 1 Physical Exam Abdomen: Normal bowel sounds, Soft, No tenderness Heart: Regular rate Extremities: No edema General: Alert, Oriented X3, No acute distress Lungs: Clear to auscultation Plan Plan of Care 1. Febrile illness - fever resolved, continue Levaquin for now. Still hypoxic on room air, will need to order overnight oximetry prior to discharge to see if she qualifies for home O2 (unable to do 6 minute walk). 2. ESRD - stable, continue dialysis. 3. DM2 - well controlled. 4. HTN - controlled with home meds. 5. debility - continue therapies. Comment Review of Relevant I have reviewed the following items csomo (where applicable) has been applied. Labs Laboratory Tests Test 12/18/18 12:50 12/18/18 17:14 12/18/18 20:34 12/19/18 07:30 Glucose (Fingerstick) 108 mg/dL (70-99) 286 mg/dL (70-99) 207 mg/dL (70-99) 111 mg/dL (70-99) Test 12/19/18 11:29 12/19/18 16:50 12/19/18 20:52 12/20/18 07:07 Glucose (Fingerstick) 221 mg/dL (70-99) 161 mg/dL (70-99) 140 mg/dL (70-99) 199 mg/dL (70-99) Test 12/20/18 12:20 White Blood Count 9.9 x10^3/uL (4.0-11.0) Red Blood Count 3.10 x10^6/uL (3.50-5.40) Hemoglobin 10.0 g/dL (12.0-15.5) Hematocrit 30.4 % (36.0-47.0) Mean Corpuscular Volume 98 fL (79-100) Mean Corpuscular Hemoglobin 32 pg (25-35) Mean Corpuscular Hemoglobin Concent 33 g/dL (31-37) Red Cell Distribution Width 16.8 % (11.5-14.5) Platelet Count 123 x10^3/uL (140-400) Neutrophils (%) (Auto) 81 % (31-73) Lymphocytes (%) (Auto) 10 % (24-48) Monocytes (%) (Auto) 7 % (0-9) Eosinophils (%) (Auto) 2 % (0-3) Basophils (%) (Auto) 1 % (0-3) Neutrophils # (Auto) 8.0 x10^3uL (1.8-7.7) Lymphocytes # (Auto) 1.0 x10^3/uL (1.0-4.8) Monocytes # (Auto) 0.7 x10^3/uL (0.0-1.1) Eosinophils # (Auto) 0.1 x10^3/uL (0.0-0.7) Basophils # (Auto) 0.1 x10^3/uL (0.0-0.2) Laboratory Tests Test 12/19/18 16:50 12/19/18 20:52 12/20/18 07:07 12/20/18 12:20 Glucose (Fingerstick) 161 mg/dL (70-99) 140 mg/dL (70-99) 199 mg/dL (70-99) White Blood Count 9.9 x10^3/uL (4.0-11.0) Red Blood Count 3.10 x10^6/uL (3.50-5.40) Hemoglobin 10.0 g/dL (12.0-15.5) Hematocrit 30.4 % (36.0-47.0) Mean Corpuscular Volume 98 fL (79-100) Mean Corpuscular Hemoglobin 32 pg (25-35) Mean Corpuscular Hemoglobin Concent 33 g/dL (31-37) Red Cell Distribution Width 16.8 % (11.5-14.5) Platelet Count 123 x10^3/uL (140-400) Neutrophils (%) (Auto) 81 % (31-73) Lymphocytes (%) (Auto) 10 % (24-48) Monocytes (%) (Auto) 7 % (0-9) Eosinophils (%) (Auto) 2 % (0-3) Basophils (%) (Auto) 1 % (0-3) Neutrophils # (Auto) 8.0 x10^3uL (1.8-7.7) Lymphocytes # (Auto) 1.0 x10^3/uL (1.0-4.8) Monocytes # (Auto) 0.7 x10^3/uL (0.0-1.1) Eosinophils # (Auto) 0.1 x10^3/uL (0.0-0.7) Basophils # (Auto) 0.1 x10^3/uL (0.0-0.2) Microbiology 12/16/18 Blood Culture - Preliminary, Resulted NO GROWTH AFTER 3 DAYS Medications Current Medications Albuterol Sulfate (Ventolin Neb Soln) 10 mg 1X ONCE CONT NEB Last administered on 12/16/18at 13:39; Start 12/16/18 at 13:30; Stop 12/16/18 at 13:31; Status DC Acetaminophen (Tylenol) 1,000 mg 1X ONCE PO Last administered on 12/16/18at 13: 52; Start 12/16/18 at 13:45; Stop 12/16/18 at 13:47; Status DC Levofloxacin/ Dextrose (Levaquin Per Pharmacy) 1 each PRN DAILY PRN MC SEE COMMENTS; Start 12/16/18 at 15:00 Levofloxacin/ Dextrose 100 ml @ 100 mls/hr Q48H IV Last administered on at 14:58; Start 12/16/18 at 15:00 Ondansetron HCl (Zofran) 4 mg PRN Q8HRS PRN IV NAUSEA/VOMITING; Start 12/16/18 at 15:00; Stop 12/17/18 at 14:59; Status DC Fentanyl Citrate (Fentanyl 2ml Vial) 50 mcg PRN Q1HR PRN IV PAIN; Start at 15:00; Stop 12/17/18 at 14:59; Status DC Albuterol/ Ipratropium (Duoneb) 3 ml RTQID NEB Last administered on 12/16/18at 15 :05; Start 12/16/18 at 16:00; Stop 12/16/18 at 16:40; Status DC Acetaminophen (Tylenol) 650 mg PRN Q6HRS PRN PO MILD PAIN Last administered on 12/17/18 08:26; Start 12/16/18 at 16:30 Amlodipine Besylate (Norvasc) 10 mg DAILY PO Last administered on 12/19/18 12: 40; Start 12/17/18 at 09:00 Aspirin (Children'S Aspirin) 81 mg DAILYWBKFT PO Last administered on 12/19/18 08:56; Start 12/17/18 at 08:00 Cetirizine HCl (ZyrTEC) 10 mg DAILY PO Last administered on 12/19/18 08:55; Start 12/17/18 at 09:00 Clonidine HCl (Catapres) 0.1 mg BID PO Last administered on 12/19/18 21:23; Start 12/16/18 at 21:00 Gabapentin (Neurontin) 200 mg BID PO Last administered on 12/19/18 21:23; Start 12/16/18 at 21:00 Acetaminophen/ Hydrocodone Bitart (Lortab 5/325) 1 tab PRN Q6HRS PRN PO MODERATE-SEVERE PAIN Last administered on 12/19/18 17:37; Start 12/16/18 at 16:30 Lactobacillus Rhamnosus (Culturelle) 1 cap BID PO Last administered on 21:23; Start 12/16/18 at 21:00 Sevelamer Carbonate (Renvela) 1,600 mg [id number] PO Last administered on 12/20/18 06:36; Start 12/16/18 at 18:00 Albuterol Sulfate (Ventolin Neb Soln) 2.5 mg PRN Q6HRS PRN NEB SHORTNESS OF BREATH; Start 12/16/18 at 16:45 Non-Formulary Medication (Alendronate Sodium ) 70 mg Q2WKS PO ; Start 12/30/18 at 09:00; Status UNV Calcium/Vitamin D (Oscal D 500mg/ 200uts) 1 tab DAILY PO Last administered on 08:55; Start 12/17/18 at 09:00 Fluticasone Propionate (Flonase) 2 spray DAILY NS Last administered on 08:56; Start 12/17/18 at 09:00 Hydralazine HCl (Apresoline) 50 mg TID PO Last administered on 12/19/18 21:22; Start 12/16/18 at 17:00 Insulin Glargine (Lantus) 7 units QHS SQ Last administered on 12/17/18 21:47; Start 12/16/18 at 21:00; Stop 12/18/18 at 07:59; Status DC Albuterol/ Ipratropium (Duoneb) 3 ml RTQID NEB Last administered on 12/20/18 10 :59; Start 12/16/18 at 20:00 Labetalol HCl (Trandate) 200 mg DAILY PO Last administered on 12/19/18 12:39; Start 12/17/18 at 09:00 Pantoprazole Sodium (Protonix) 40 mg DAILYAC PO Last administered on 12/19/18 08:55; Start 12/17/18 at 07:30 Vitamin B Complex/ Vitamin C (Windy-Abby) 1 tab DAILY PO Last administered on 08:55; Start 12/17/18 at 09:00 Non-Formulary Medication ([guaiFENesin/ CODEINE 100mg/ 10mg] ) 5 ml PRN Q6HRS PRN PO COUGH; Start 12/16/18 at 16:30; Status UNV Insulin Human Lispro (HumaLOG) 0-5 UNITS TIDWMEALS SQ Last administered on at 08:46; Start 12/16/18 at 17:00 Dextrose (Dextrose 50%-Water Syringe) 12.5 gm PRN Q15MIN PRN IV SEE COMMENTS; Start 12/16/18 at 16:45 Zolpidem Tartrate (Ambien) 5 mg PRN QHS PRN PO INSOMNIA; Start 12/17/18 at 09:30 Insulin Glargine (Lantus) 8 units QHS SQ Last administered on 12/19/18at 21:31; Start 12/18/18 at 21:00 Sodium Chloride 1,000 ml @ 1,000 mls/hr Q1H PRN IV hypotension; Start 12/18/18 at 08:58; Stop 12/18/18 at 14:57; Status DC Albumin Human 200 ml @ 200 mls/hr 1X PRN PRN IV Hypotension; Start 12/18/18 at 09:00; Stop 12/18/18 at 14:59; Status DC Sodium Chloride 1,000 ml @ 400 mls/hr Q2H30M PRN IV PATENCY; Start 12/18/18 at 08:58; Stop 12/18/18 at 20:57; Status DC Info (PHARMACY MONITORING -- do not chart) 1 each PRN DAILY PRN MC SEE COMMENTS ; Start 12/18/18 at 09:00; Status UNV Info (PHARMACY MONITORING -- do not chart) 1 each PRN DAILY PRN MC SEE COMMENTS ; Start 12/18/18 at 09:00; Status Cancel Darbepoetin Yeison (Aranesp) 60 mcg Mo SQ Last administered on 12/18/18at 20:27; Start 12/18/18 at 21:00 Albuterol/ Ipratropium (Duoneb) 3 ml 1X STAT NEB Last administered on at 08:50; Start 12/19/18 at 08:50; Stop 12/19/18 at 08:58; Status DC Albuterol/ Ipratropium (Duoneb) 3 ml RTQID NEB Last administered on 12/19/18at 12 :38; Start 12/19/18 at 12:00; Stop 12/19/18 at 17:30; Status DC Sodium Chloride 1,000 ml @ 1,000 mls/hr Q1H PRN IV hypotension; Start 12/20/18 at 09:08; Stop 12/20/18 at 15:07 Sodium Chloride 1,000 ml @ 400 mls/hr Q2H30M PRN IV PATENCY; Start 12/20/18 at 09:08; Stop 12/20/18 at 21:07 Info (PHARMACY MONITORING -- do not chart) 1 each PRN DAILY PRN MC SEE COMMENTS ; Start 12/20/18 at 09:15 Active Scripts Active [guaiFENesin/CODEINE 100mg/10mg] 5 ML Liquid 5 Ml PO PRN Q6HRS PRN Proair Respiclick (Albuterol Sulfate) 90 Mcg Aer.pow.ba 1 Puff IH PRN Q6HRS PRN Culturelle (Lactobacillus Rhamnosus Gg) 1 Each Cap.sprink 1 Cap PO BID 30 Days Combivent Respimat Inhal (Ipratropium/Albuterol Sulfate) 4 Gm Aer.w.adap 2 Inh IH QID 30 Days Labetalol Hcl 200 Mg Tablet 1 Tab PO DAILY 30 Days Children's Aspirin (Aspirin) 81 Mg Tab.chew 81 Mg PO DAILYWBKFT 30 Days Reported Lantus (Insulin Glargine,Hum.rec.anlog) 100 Unit/1 Ml Vial 7 SQ HS Novolog (Insulin Aspart) 100 Unit/1 Ml Cartridge 100 Unit SQ TIDBFRMEAL Omeprazole 40 Mg Capsule.dr 40 Mg PO DAILY Hydrocodone-Apap 5-325 (Hydrocodone Bit/Acetaminophen) 1 Each Tablet 1 Tab PO Q6HRS PRN Hydralazine Hcl 50 Mg Tablet 1 Tab PO TID Gabapentin (Gabapentin) 100 Mg Capsule 200 Mg PO BID Cetirizine Hcl 10 Mg Tablet 1 Tab PO DAILY Tylenol (Acetaminophen) 325 Mg Tablet 2 Tab PO PRN Q6HRS PRN Clonidine Hcl 0.1 Mg Tablet 0.1 Mg PO BID Alendronate Sodium 70 Mg Tablet 70 Mg PO Q2WKS Flonase Allergy Relief (Fluticasone Propionate) 9.9 Ml Decker.susp 2 Sprays NS DAILY Calcium 600 + Vit D 400 Caplet (Calcium Carbonate/Vitamin D3) 1 Each Tablet 1 Each PO DAILY Renvela (Sevelamer Carbonate) 800 Mg Tablet 2 Tab PO [id number] Norvasc (Amlodipine Besylate) 10 Mg Tablet 10 Mg PO DAILY Windy-Abby Rx Tablet (Vit B Cmplx 3/Fa/Vit C/Biotin) 1 Each Tablet 1 Each PO DAILY Vitals/I & O Vital Sign - Last 24 Hours 12/19/18 12/19/18 12/19/18 12/19/18 14:25 16:34 19:05 20:00 Temp 98.4 97.2 98.4 97.2 Pulse 80 76 Resp 18 22 B/P (MAP) 104/40 (61) 134/56 (82) Pulse Ox 90 78 98 O2 Delivery Room Air Room Air Room Air Nasal Cannula O2 Flow Rate 2.0 12/19/18 12/19/18 12/19/18 12/19/18 21:11 21:22 21:23 23:05 Temp 98.1 98.1 Pulse 76 76 80 Resp 20 B/P (MAP) 134/56 134/56 134/49 (77) Pulse Ox 94 98 O2 Delivery Nasal Cannula Nasal Cannula O2 Flow Rate 2.0 2.0 3/6/19 12/20/18 12/20/18 12/20/18 03:05 07:00 08:00 10:59 Temp 98.7 98.2 98.7 98.2 Pulse 78 79 Resp 20 18 B/P (MAP) 142/54 (83) 128/57 (80) Pulse Ox 97 92 O2 Delivery Nasal Cannula Nasal Cannula Nasal Cannula Nasal Cannula O2 Flow Rate 2.0 2.0 2.0 3.0 Intake and Output 12/19/18 12/19/18 12/20/18 15:00 23:00 07:00 Intake Total 360 ml 400 ml Balance 360 ml 400 ml ARELI MATIAS MD Dec 20, 2018 12:50
[2018-12-20 15:00] VITALS: BP 157/60
[2018-12-20] MEDS: FLUTICASONE 50MCG/NASAL SPRAY 16GM BOTTLE. NS SCH (15:22)
[2018-12-20] MEDS: CETIRIZINE HCL 10 MG TABLET. PO SCH (15:22)
[2018-12-20] MEDS: LACTOBACILLUS RHAMNOSUS GG 1 CAPSULE. PO SCH ×2 (15:23→20:35)
[2018-12-20] MEDS: CALCIUM CARB/VIT D3 500/200 TABLET. PO SCH (15:23)
[2018-12-20] MEDS: FOLIC/VIT B COMP W-C (RENAL) TABLET. PO SCH (15:23)
[2018-12-20] MEDS: PANTOPRAZOLE 40 MG TABLET.DR. PO SCH (15:23)
[2018-12-20] MEDS: ASPIRIN CHEWABLE 81 MG TABLET. PO SCH (15:24)
[2018-12-20] MEDS: GABAPENTIN 100 MG CAPSULE. PO SCH ×2 (15:24→20:35)
--- NOTE | 2018-12-20 16:02 | NUR ---
SW following. Discussed with RN, pt is from home with daughter. Pt will need home health upon discharge. RN advised pt is not discharging today. SW will continue to follow.
[2018-12-20 19:38] VITALS: BP 156/52
[2018-12-20] MEDS: HYDROcodone/APAP 5/325MG 1 TAB TABLET PO PRN (20:35)
[2018-12-20] MEDS: INSULIN GLARGINE 300 UNITS/3 ML INSULN.PEN. SQ SCH (20:39)
[2018-12-20 23:14] VITALS: BP 122/58
[2018-12-21] VITALS (7 sets, daily range): BP systolic 92–143; BP diastolic 41–53
--- NOTE | 2018-12-21 04:31 | NUR ---
at 2200 Pt tele monitor dc'd per protocol. will continue to monitor pt.
[2018-12-21] MEDS: HYDROcodone/APAP 5/325MG 1 TAB TABLET PO PRN ×2 (06:15→15:36)
[2018-12-21] MEDS: SEVELAMER CARBONATE 800 MG TABLET. PO SCH ×3 (06:15→18:07)
[2018-12-21] MEDS: IPRATRPIUM/ALBUTEROL 0.5/2.5MG 3 ML NEBU. NEB SCH ×4 (07:46→20:00)
[2018-12-21] MEDS: INSULIN LISPRO 300 UNITS/3 ML INSULN.PEN. SQ SCH ×3 (08:00→18:13)
--- NOTE | 2018-12-21 08:12 | PDOC ---
PROGRESS NOTES Subjective Subjective Patient reports breathing is OK. Objective Objective Vital Signs Date Time Temp Pulse Resp B/P (MAP) Pulse Ox O2 Delivery O2 Flow Rate FiO2 12/21/18 07:47 97 Nasal Cannula 2.0 12/21/18 06:36 97.6 71 18 143/50 (81) 97.6 Intake and Output 12/21/18 07:00 Intake Total 1170 ml Balance 1170 ml Intake Oral 1170 ml # Voids 3 Physical Exam Abdomen: Normal bowel sounds, Soft, No tenderness Heart: Regular rate Extremities: No edema General: Alert, Oriented X3, No acute distress Lungs: Other (BS mildly decreased throughout, few dry crackles in bases) Plan Plan of Care 1. Febrile illness - fever resolved. Continue Levaquin for now. Still having some hypoxia on RA. Will order overnight pulse oximetry on RA tonight to see if patient will qualify for home O2. 2. ESRD - stable, dialysis as scheduled tomorrow. 3. DM2 - well controlled, continue insulins as needed. 4. HTN - controlled, continue home medications. 5. debility - continue therapies. Comment Review of Relevant I have reviewed the following items cosmo (where applicable) has been applied. Labs Laboratory Tests Test 12/19/18 11:29 12/19/18 16:50 12/19/18 20:52 12/20/18 07:07 Glucose (Fingerstick) 221 mg/dL (70-99) 161 mg/dL (70-99) 140 mg/dL (70-99) 199 mg/dL (70-99) Test 12/20/18 12:20 12/20/18 13:24 12/20/18 17:00 12/20/18 20:46 White Blood Count 9.9 x10^3/uL (4.0-11.0) Red Blood Count 3.10 x10^6/uL (3.50-5.40) Hemoglobin 10.0 g/dL (12.0-15.5) Hematocrit 30.4 % (36.0-47.0) Mean Corpuscular Volume 98 fL (79-100) Mean Corpuscular Hemoglobin 32 pg (25-35) Mean Corpuscular Hemoglobin Concent 33 g/dL (31-37) Red Cell Distribution Width 16.8 % (11.5-14.5) Platelet Count 123 x10^3/uL (140-400) Neutrophils (%) (Auto) 81 % (31-73) Lymphocytes (%) (Auto) 10 % (24-48) Monocytes (%) (Auto) 7 % (0-9) Eosinophils (%) (Auto) 2 % (0-3) Basophils (%) (Auto) 1 % (0-3) Neutrophils # (Auto) 8.0 x10^3uL (1.8-7.7) Lymphocytes # (Auto) 1.0 x10^3/uL (1.0-4.8) Monocytes # (Auto) 0.7 x10^3/uL (0.0-1.1) Eosinophils # (Auto) 0.1 x10^3/uL (0.0-0.7) Basophils # (Auto) 0.1 x10^3/uL (0.0-0.2) Procalcitonin 1.09 ng/mL (0.00-0.10) Glucose (Fingerstick) 132 mg/dL (70-99) 278 mg/dL (70-99) 148 mg/dL (70-99) Test 12/21/18 07:33 Glucose (Fingerstick) 84 mg/dL (70-99) Laboratory Tests Test 12/20/18 12:20 12/20/18 13:24 12/20/18 17:00 12/20/18 20:46 White Blood Count 9.9 x10^3/uL (4.0-11.0) Red Blood Count 3.10 x10^6/uL (3.50-5.40) Hemoglobin 10.0 g/dL (12.0-15.5) Hematocrit 30.4 % (36.0-47.0) Mean Corpuscular Volume 98 fL (79-100) Mean Corpuscular Hemoglobin 32 pg (25-35) Mean Corpuscular Hemoglobin Concent 33 g/dL (31-37) Red Cell Distribution Width 16.8 % (11.5-14.5) Platelet Count 123 x10^3/uL (140-400) Neutrophils (%) (Auto) 81 % (31-73) Lymphocytes (%) (Auto) 10 % (24-48) Monocytes (%) (Auto) 7 % (0-9) Eosinophils (%) (Auto) 2 % (0-3) Basophils (%) (Auto) 1 % (0-3) Neutrophils # (Auto) 8.0 x10^3uL (1.8-7.7) Lymphocytes # (Auto) 1.0 x10^3/uL (1.0-4.8) Monocytes # (Auto) 0.7 x10^3/uL (0.0-1.1) Eosinophils # (Auto) 0.1 x10^3/uL (0.0-0.7) Basophils # (Auto) 0.1 x10^3/uL (0.0-0.2) Procalcitonin 1.09 ng/mL (0.00-0.10) Glucose (Fingerstick) 132 mg/dL (70-99) 278 mg/dL (70-99) 148 mg/dL (70-99) Test 12/21/18 07:33 Glucose (Fingerstick) 84 mg/dL (70-99) Microbiology 12/16/18 Blood Culture - Preliminary, Resulted NO GROWTH AFTER 4 DAYS Medications Current Medications Albuterol Sulfate (Ventolin Neb Soln) 10 mg 1X ONCE CONT NEB Last administered on 12/16/18at 13:39; Start 12/16/18 at 13:30; Stop 12/16/18 at 13:31; Status DC Acetaminophen (Tylenol) 1,000 mg 1X ONCE PO Last administered on 12/16/18at 13: 52; Start 12/16/18 at 13:45; Stop 12/16/18 at 13:47; Status DC Levofloxacin/ Dextrose (Levaquin Per Pharmacy) 1 each PRN DAILY PRN MC SEE COMMENTS; Start 12/16/18 at 15:00 Levofloxacin/ Dextrose 100 ml @ 100 mls/hr Q48H IV Last administered on at 15:25; Start 12/16/18 at 15:00 Ondansetron HCl (Zofran) 4 mg PRN Q8HRS PRN IV NAUSEA/VOMITING; Start 12/16/18 at 15:00; Stop 12/17/18 at 14:59; Status DC Fentanyl Citrate (Fentanyl 2ml Vial) 50 mcg PRN Q1HR PRN IV PAIN; Start at 15:00; Stop 12/17/18 at 14:59; Status DC Albuterol/ Ipratropium (Duoneb) 3 ml RTQID NEB Last administered on 12/16/18 15 :05; Start 12/16/18 at 16:00; Stop 12/16/18 at 16:40; Status DC Acetaminophen (Tylenol) 650 mg PRN Q6HRS PRN PO MILD PAIN Last administered on 12/17/18 08:26; Start 12/16/18 at 16:30 Amlodipine Besylate (Norvasc) 10 mg DAILY PO Last administered on 12/19/18 12: 40; Start 12/17/18 at 09:00 Aspirin (Children'S Aspirin) 81 mg DAILYWBKFT PO Last administered on 12/20/18 15:24; Start 12/17/18 at 08:00 Cetirizine HCl (ZyrTEC) 10 mg DAILY PO Last administered on 12/20/18 15:22; Start 12/17/18 at 09:00 Clonidine HCl (Catapres) 0.1 mg BID PO Last administered on 12/20/18 20:36; Start 12/16/18 at 21:00 Gabapentin (Neurontin) 200 mg BID PO Last administered on 12/20/18 20:35; Start 12/16/18 at 21:00 Acetaminophen/ Hydrocodone Bitart (Lortab 5/325) 1 tab PRN Q6HRS PRN PO MODERATE-SEVERE PAIN Last administered on 12/21/18 06:15; Start 12/16/18 at 16:30 Lactobacillus Rhamnosus (Culturelle) 1 cap BID PO Last administered on 20:35; Start 12/16/18 at 21:00 Sevelamer Carbonate (Renvela) 1,600 mg [id number] PO Last administered on 12/21/18 06:15; Start 12/16/18 at 18:00 Albuterol Sulfate (Ventolin Neb Soln) 2.5 mg PRN Q6HRS PRN NEB SHORTNESS OF BREATH; Start 12/16/18 at 16:45 Non-Formulary Medication (Alendronate Sodium ) 70 mg Q2WKS PO ; Start 12/30/18 at 09:00; Status UNV Calcium/Vitamin D (Oscal D 500mg/ 200uts) 1 tab DAILY PO Last administered on 15:23; Start 12/17/18 at 09:00 Fluticasone Propionate (Flonase) 2 spray DAILY NS Last administered on 15:22; Start 12/17/18 at 09:00 Hydralazine HCl (Apresoline) 50 mg TID PO Last administered on 12/20/18 20:35; Start 12/16/18 at 17:00 Insulin Glargine (Lantus) 7 units QHS SQ Last administered on 12/17/18 21:47; Start 12/16/18 at 21:00; Stop 12/18/18 at 07:59; Status DC Albuterol/ Ipratropium (Duoneb) 3 ml RTQID NEB Last administered on 12/21/18 07 :46; Start 12/16/18 at 20:00 Labetalol HCl (Trandate) 200 mg DAILY PO Last administered on 12/19/18 12:39; Start 12/17/18 at 09:00 Pantoprazole Sodium (Protonix) 40 mg DAILYAC PO Last administered on 12/20/18 15:23; Start 12/17/18 at 07:30 Vitamin B Complex/ Vitamin C ([place]indy-Abby) 1 tab DAILY PO Last administered on 15:23; Start 12/17/18 at 09:00 Non-Formulary Medication ([guaiFENesin/ CODEINE 100mg/ 10mg] ) 5 ml PRN Q6HRS PRN PO COUGH; Start 12/16/18 at 16:30; Status UNV Insulin Human Lispro (HumaLOG) 0-5 UNITS TIDWMEALS SQ Last administered on 17:50; Start 12/16/18 at 17:00 Dextrose (Dextrose 50%-Water Syringe) 12.5 gm PRN Q15MIN PRN IV SEE COMMENTS; Start 12/16/18 at 16:45 Zolpidem Tartrate (Ambien) 5 mg PRN QHS PRN PO INSOMNIA; Start 12/17/18 at 09:30 Insulin Glargine (Lantus) 8 units QHS SQ Last administered on 12/20/18 20:39; Start 12/18/18 at 21:00 Sodium Chloride 1,000 ml @ 1,000 mls/hr Q1H PRN IV hypotension; Start 12/18/18 at 08:58; Stop 12/18/18 at 14:57; Status DC Albumin Human 200 ml @ 200 mls/hr 1X PRN PRN IV Hypotension; Start 12/18/18 at 09:00; Stop 12/18/18 at 14:59; Status DC Sodium Chloride 1,000 ml @ 400 mls/hr Q2H30M PRN IV PATENCY; Start 12/18/18 at 08:58; Stop 12/18/18 at 20:57; Status DC Info (PHARMACY MONITORING -- do not chart) 1 each PRN DAILY PRN MC SEE COMMENTS ; Start 12/18/18 at 09:00; Status UNV Info (PHARMACY MONITORING -- do not chart) 1 each PRN DAILY PRN MC SEE COMMENTS ; Start 12/18/18 at 09:00; Status Cancel Darbepoetin Yeison (Aranesp) 60 mcg Mo SQ Last administered on 12/18/18at 20:27; Start 12/18/18 at 21:00 Albuterol/ Ipratropium (Duoneb) 3 ml 1X STAT NEB Last administered on at 08:50; Start 12/19/18 at 08:50; Stop 12/19/18 at 08:58; Status DC Albuterol/ Ipratropium (Duoneb) 3 ml RTQID NEB Last administered on 12/19/18at 12 :38; Start 12/19/18 at 12:00; Stop 12/19/18 at 17:30; Status DC Sodium Chloride 1,000 ml @ 1,000 mls/hr Q1H PRN IV hypotension; Start 12/20/18 at 09:08; Stop 12/20/18 at 15:07; Status DC Sodium Chloride 1,000 ml @ 400 mls/hr Q2H30M PRN IV PATENCY; Start 12/20/18 at 09:08; Stop 12/20/18 at 21:07; Status DC Info (PHARMACY MONITORING -- do not chart) 1 each PRN DAILY PRN MC SEE COMMENTS ; Start 12/20/18 at 09:15 Active Scripts Active [guaiFENesin/CODEINE 100mg/10mg] 5 ML Liquid 5 Ml PO PRN Q6HRS PRN Proair Respiclick (Albuterol Sulfate) 90 Mcg Aer.pow.ba 1 Puff IH PRN Q6HRS PRN Culturelle (Lactobacillus Rhamnosus Gg) 1 Each Cap.sprink 1 Cap PO BID 30 Days Combivent Respimat Inhal (Ipratropium/Albuterol Sulfate) 4 Gm Aer.w.adap 2 Inh IH QID 30 Days Labetalol Hcl 200 Mg Tablet 1 Tab PO DAILY 30 Days Children's Aspirin (Aspirin) 81 Mg Tab.chew 81 Mg PO DAILYWBKFT 30 Days Reported Lantus (Insulin Glargine,Hum.rec.anlog) 100 Unit/1 Ml Vial 7 SQ HS Novolog (Insulin Aspart) 100 Unit/1 Ml Cartridge 100 Unit SQ TIDBFRMEAL Omeprazole 40 Mg Capsule.dr 40 Mg PO DAILY Hydrocodone-Apap 5-325 (Hydrocodone Bit/Acetaminophen) 1 Each Tablet 1 Tab PO Q6HRS PRN Hydralazine Hcl 50 Mg Tablet 1 Tab PO TID Gabapentin (Gabapentin) 100 Mg Capsule 200 Mg PO BID Cetirizine Hcl 10 Mg Tablet 1 Tab PO DAILY Tylenol (Acetaminophen) 325 Mg Tablet 2 Tab PO PRN Q6HRS PRN Clonidine Hcl 0.1 Mg Tablet 0.1 Mg PO BID Alendronate Sodium 70 Mg Tablet 70 Mg PO Q2WKS Flonase Allergy Relief (Fluticasone Propionate) 9.9 Ml [place].susp 2 Sprays NS DAILY Calcium 600 + Vit D 400 Caplet (Calcium Carbonate/Vitamin D3) 1 Each Tablet 1 Each PO DAILY Renvela (Sevelamer Carbonate) 800 Mg Tablet 2 Tab PO [id number] Norvasc (Amlodipine Besylate) 10 Mg Tablet 10 Mg PO DAILY Windy-Abby Rx Tablet (Vit B Cmplx 3/Fa/Vit C/Biotin) 1 Each Tablet 1 Each PO DAILY Vitals/I & O Vital Sign - Last 24 Hours 12/20/18 12/20/18 12/20/18 12/20/18 10:59 15:00 15:37 16:01 Temp 98.4 98.4 Pulse 91 91 Resp 18 B/P (MAP) 157/60 (92) 157/60 Pulse Ox 92 O2 Delivery Nasal Cannula Nasal Cannula Nasal Cannula O2 Flow Rate 3.0 2.0 3.0 12/20/18 12/20/18 12/20/18 12/20/18 19:38 20:00 20:35 20:35 Temp 99.3 99.3 Pulse 80 80 Resp 18 B/P (MAP) 156/52 (86) 156/52 Pulse Ox 97 97 O2 Delivery Nasal Cannula Nasal Cannula Nasal Cannula O2 Flow Rate 2.0 2.0 2.0 12/20/18 12/20/18 12/20/18 12/20/18 20:36 21:29 21:46 23:14 Temp 99.2 99.2 Pulse 80 78 Resp 20 B/P (MAP) 156/52 122/58 (79) Pulse Ox 97 97 98 O2 Delivery Nasal Cannula Nasal Cannula Nasal Cannula O2 Flow Rate 2.0 2.0 2.0 12/21/18 12/21/18 12/21/18 12/21/18 03:09 06:15 06:36 07:47 Temp 97.8 97.6 97.8 97.6 Pulse 73 71 Resp 18 18 B/P (MAP) 92/50 (64) 143/50 (81) Pulse Ox 96 96 97 97 O2 Delivery Nasal Cannula Nasal Cannula Nasal Cannula Nasal Cannula O2 Flow Rate 2.0 2.0 2.0 2.0 Intake and Output 12/20/18 12/20/18 12/21/18 15:00 23:00 07:00 Intake Total 600 ml 150 ml 420 ml Balance 600 ml 150 ml 420 ml ARELI MATIAS MD Dec 21, 2018 08:12
[2018-12-21] MEDS: FOLIC/VIT B COMP W-C (RENAL) TABLET. PO SCH (08:41)
[2018-12-21] MEDS: LACTOBACILLUS RHAMNOSUS GG 1 CAPSULE. PO SCH ×2 (08:42→22:03)
[2018-12-21] MEDS: GABAPENTIN 100 MG CAPSULE. PO SCH ×2 (08:42→22:03)
[2018-12-21] MEDS: PANTOPRAZOLE 40 MG TABLET.DR. PO SCH (08:42)
[2018-12-21] MEDS: CETIRIZINE HCL 10 MG TABLET. PO SCH (08:43)
[2018-12-21] MEDS: ASPIRIN CHEWABLE 81 MG TABLET. PO SCH (08:43)
[2018-12-21] MEDS: CALCIUM CARB/VIT D3 500/200 TABLET. PO SCH (08:43)
[2018-12-21] MEDS: FLUTICASONE 50MCG/NASAL SPRAY 16GM BOTTLE. NS SCH (08:43)
[2018-12-21] MEDS: LABETALOL HCL 200 MG TABLET PO SCH (08:44)
[2018-12-21] MEDS: amLODIPine BESYLATE 10 MG TABLET PO SCH (08:44)
[2018-12-21] MEDS: cloNIDine HCL 0.1 MG TABLET PO SCH ×2 (08:45→22:04)
--- NOTE | 2018-12-21 09:22 | PDOC ---
PULMONARY PROGRESS NOTES Subjective Patient with no new respiratory complaints Vitals Vital Signs Date Time Temp Pulse Resp B/P (MAP) Pulse Ox O2 Delivery O2 Flow Rate FiO2 12/21/18 08:45 70 128/41 12/21/18 08:00 Nasal Cannula 2.0 12/21/18 07:47 97 12/21/18 07:20 97.8 14 97.8 ROS: No Nausea, No Chest Pain, No Abdominal Pain, No Increase Cough General: Alert, No acute distress Lungs: Crackles Cardiovascular: S1, S2 Abdomen: Soft, Non-tender Neuro Exam: Alert Extremities: No Edema Skin: Warm Labs Laboratory Tests Test 12/19/18 11:29 12/19/18 16:50 12/19/18 20:52 12/20/18 07:07 Glucose (Fingerstick) 221 mg/dL (70-99) 161 mg/dL (70-99) 140 mg/dL (70-99) 199 mg/dL (70-99) Test 12/20/18 12:20 12/20/18 13:24 12/20/18 17:00 12/20/18 20:46 White Blood Count 9.9 x10^3/uL (4.0-11.0) Red Blood Count 3.10 x10^6/uL (3.50-5.40) Hemoglobin 10.0 g/dL (12.0-15.5) Hematocrit 30.4 % (36.0-47.0) Mean Corpuscular Volume 98 fL (79-100) Mean Corpuscular Hemoglobin 32 pg (25-35) Mean Corpuscular Hemoglobin Concent 33 g/dL (31-37) Red Cell Distribution Width 16.8 % (11.5-14.5) Platelet Count 123 x10^3/uL (140-400) Neutrophils (%) (Auto) 81 % (31-73) Lymphocytes (%) (Auto) 10 % (24-48) Monocytes (%) (Auto) 7 % (0-9) Eosinophils (%) (Auto) 2 % (0-3) Basophils (%) (Auto) 1 % (0-3) Neutrophils # (Auto) 8.0 x10^3uL (1.8-7.7) Lymphocytes # (Auto) 1.0 x10^3/uL (1.0-4.8) Monocytes # (Auto) 0.7 x10^3/uL (0.0-1.1) Eosinophils # (Auto) 0.1 x10^3/uL (0.0-0.7) Basophils # (Auto) 0.1 x10^3/uL (0.0-0.2) Procalcitonin 1.09 ng/mL (0.00-0.10) Glucose (Fingerstick) 132 mg/dL (70-99) 278 mg/dL (70-99) 148 mg/dL (70-99) Test 12/21/18 07:33 Glucose (Fingerstick) 84 mg/dL (70-99) Laboratory Tests Test 12/20/18 12:20 12/20/18 13:24 12/20/18 17:00 12/20/18 20:46 White Blood Count 9.9 x10^3/uL (4.0-11.0) Red Blood Count 3.10 x10^6/uL (3.50-5.40) Hemoglobin 10.0 g/dL (12.0-15.5) Hematocrit 30.4 % (36.0-47.0) Mean Corpuscular Volume 98 fL (79-100) Mean Corpuscular Hemoglobin 32 pg (25-35) Mean Corpuscular Hemoglobin Concent 33 g/dL (31-37) Red Cell Distribution Width 16.8 % (11.5-14.5) Platelet Count 123 x10^3/uL (140-400) Neutrophils (%) (Auto) 81 % (31-73) Lymphocytes (%) (Auto) 10 % (24-48) Monocytes (%) (Auto) 7 % (0-9) Eosinophils (%) (Auto) 2 % (0-3) Basophils (%) (Auto) 1 % (0-3) Neutrophils # (Auto) 8.0 x10^3uL (1.8-7.7) Lymphocytes # (Auto) 1.0 x10^3/uL (1.0-4.8) Monocytes # (Auto) 0.7 x10^3/uL (0.0-1.1) Eosinophils # (Auto) 0.1 x10^3/uL (0.0-0.7) Basophils # (Auto) 0.1 x10^3/uL (0.0-0.2) Procalcitonin 1.09 ng/mL (0.00-0.10) Glucose (Fingerstick) 132 mg/dL (70-99) 278 mg/dL (70-99) 148 mg/dL (70-99) Test 12/21/18 07:33 Glucose (Fingerstick) 84 mg/dL (70-99) Medications Active Scripts Medications Dose Route/Sig Max Daily Dose Days Date Category Lantus (Insulin Glargine,Hum.rec.anlog) 100 Unit/1 Ml Vial 7 SQ HS 12/05/18 Reported Novolog (Insulin Aspart) 100 Unit/1 Ml Cartridge 100 Unit SQ TIDBFRMEAL 12/05/18 Reported [guaiFENesin/CODEINE 100mg/10mg] 5 ML Liquid 5 Ml PO PRN Q6HRS PRN 11/10/18 Rx Proair Respiclick (Albuterol Sulfate) 90 Mcg Aer.pow.ba 1 Puff IH PRN Q6HRS PRN 04/10/18 Rx Culturelle (Lactobacillus Rhamnosus Gg) 1 Each Cap.sprink 1 Cap PO BID 30 12/15/17 Rx Combivent Respimat Inhal (Ipratropium/Albuterol Sulfate) 4 Gm Aer.w.adap 2 Inh IH QID 30 09/02/17 Rx Labetalol Hcl 200 Mg Tablet 1 Tab PO DAILY 30 09/02/17 Rx Omeprazole 40 Mg Capsule.dr 40 Mg PO DAILY 09/01/17 Reported Hydrocodone-Apap 5-325 (Hydrocodone Bit/Acetaminophen) 1 Each Tablet 1 Tab PO Q6HRS PRN 09/01/17 Reported Hydralazine Hcl 50 Mg Tablet 1 Tab PO TID 04/08/17 Reported Gabapentin (Gabapentin) 100 Mg Capsule 200 Mg PO BID 04/08/17 Reported Cetirizine Hcl 10 Mg Tablet 1 Tab PO DAILY 10/29/16 Reported Tylenol (Acetaminophen) 325 Mg Tablet 2 Tab PO PRN Q6HRS PRN 10/29/16 Reported Clonidine Hcl 0.1 Mg Tablet 0.1 Mg PO BID 09/17/16 Reported Alendronate Sodium 70 Mg Tablet 70 Mg PO Q2WKS 09/17/16 Reported Flonase Allergy Relief (Fluticasone Propionate) 9.9 Ml [place].susp 2 Sprays NS DAILY 09/17/16 Reported Children's Aspirin (Aspirin) 81 Mg Tab.chew 81 Mg PO DAILYWBKFT 30 11/04/15 Rx Calcium 600 + Vit D 400 Caplet (Calcium Carbonate/Vitamin D3) 1 Each Tablet 1 Each PO DAILY 10/24/15 Reported Renvela (Sevelamer Carbonate) 800 Mg Tablet 2 Tab PO [id number] 12/21/14 Reported Norvasc (Amlodipine Besylate) 10 Mg Tablet 10 Mg PO DAILY 11/11/13 Reported Windy-Abby Rx Tablet (Vit B Cmplx 3/Fa/Vit C/Biotin) 1 Each Tablet 1 Each PO DAILY 11/11/13 Reported Impression . IMPRESSION: 1. Fever, suspect possibly secondary to a viral despite negative influenza screen. 2. Abnormal CT chest revealing chronic changes in the faces. 3. End-stage renal disease, on hemodialysis. 4. Hypertension. 5. Type 2 diabetes. Plan . qualifies for Oxygen, O2 saturation on room air was 85%, unable to preform 6min walk will check nocturnal desaturation study antibiotics per TAMI LEIGH MD Dec 21, 2018 09:22
--- NOTE | 2018-12-21 09:31 | PDOC ---
Infectious Disease Note Subjective: Subjective pt is doing a little better no fevers has cough but unable to bring any phlegm no headache nausea and diarrhea resolved had bm ROS: ROS Negative except for above. Vital Signs: Vital Signs Vital Signs Date Time Temp Pulse Resp B/P (MAP) Pulse Ox O2 Delivery O2 Flow Rate FiO2 12/21/18 08:45 70 128/41 12/21/18 08:00 Nasal Cannula 2.0 12/21/18 07:47 97 12/21/18 07:20 97.8 14 97.8 Physical Exam: PHYSICAL EXAM GENERAL: Alert, oriented x3, nontoxic appearing female cooperative, in no acute distress. HEENT: Normocephalic, atraumatic, anicteric. No thrush. Oral mucosa moist. NECK: Supple. No JVD. LUNGS: Decreased breath sounds at bases. CARDIOVASCULAR: S1, S2 with no gallops or murmurs. ABDOMEN: Soft, nontender, nondistended. EXTREMITIES: No edema, no cyanosis. NEUROLOGIC: Alert and oriented x 3. Grossly nonfocal. PSYCHIATRIC: Cooperative, appropriate mood and affect. Medications: Inpatient Meds: Current Medications Medications (Trade) Dose Ordered Sig/Bill Start Time Stop Time Status Last Admin Dose Admin Acetaminophen (Tylenol) 650 mg PRN Q6HRS PRN 12/16/18 16:30 12/17/18 08:26 650 MG Acetaminophen/ Hydrocodone Bitart (Lortab 5/325) 1 tab PRN Q6HRS PRN 12/16/18 16:30 12/21/18 06:15 1 TAB Albumin Human 200 ml @ 200 mls/hr 1X PRN PRN 12/18/18 09:00 12/18/18 14:59 DC Albuterol Sulfate (Ventolin Neb Soln) 2.5 mg PRN Q6HRS PRN 12/16/18 16:45 Albuterol/ Ipratropium (Duoneb) 3 ml RTQID 12/19/18 12:00 12/19/18 17:30 DC 12/19/18 12:38 3 ML Amlodipine Besylate (Norvasc) 10 mg DAILY 12/17/18 09:00 12/21/18 08:44 10 MG Aspirin (Children'S Aspirin) 81 mg DAILYWBKFT 12/17/18 08:00 12/21/18 08:43 81 MG Calcium/Vitamin D (Oscal D 500mg/ 200uts) 1 tab DAILY 12/17/18 09:00 12/21/18 08:43 1 TAB Cetirizine HCl (ZyrTEC) 10 mg DAILY 12/17/18 09:00 12/21/18 08:43 10 MG Clonidine HCl (Catapres) 0.1 mg BID 12/16/18 21:00 12/21/18 08:45 0.1 MG Darbepoetin Yeison (Aranesp) 60 mcg Mo 12/18/18 21:00 12/18/18 20:27 60 MCG Dextrose (Dextrose 50%-Water Syringe) 12.5 gm PRN Q15MIN PRN 12/16/18 16:45 Fentanyl Citrate (Fentanyl 2ml Vial) 50 mcg PRN Q1HR PRN 12/16/18 15:00 12/17/18 14:59 DC Fluticasone Propionate (Flonase) 2 spray DAILY 12/17/18 09:00 12/21/18 08:43 2 SPRAY Gabapentin (Neurontin) 200 mg BID 12/16/18 21:00 12/21/18 08:42 200 MG Hydralazine HCl (Apresoline) 50 mg TID 12/16/18 17:00 12/21/18 08:45 50 MG Info (PHARMACY MONITORING -- do not chart) 1 each PRN DAILY PRN 12/20/18 09:15 Insulin Glargine (Lantus) 8 units QHS 12/18/18 21:00 12/20/18 20:39 8 UNITS Insulin Human Lispro (HumaLOG) 0-5 UNITS TIDWMEALS 12/16/18 17:00 12/20/18 17:50 4 UNITS Labetalol HCl (Trandate) 200 mg DAILY 12/17/18 09:00 12/21/18 08:44 200 MG Lactobacillus Rhamnosus (Culturelle) 1 cap BID 12/16/18 21:00 12/21/18 08:42 1 CAP Levofloxacin/ Dextrose 100 ml @ 100 mls/hr Q48H 12/16/18 15:00 12/20/18 15:25 100 MLS/HR Levofloxacin/ Dextrose (Levaquin Per Pharmacy) 1 each PRN DAILY PRN 12/16/18 15:00 Non-Formulary Medication (Alendronate Sodium ) 70 mg Q2WKS 12/30/18 09:00 UNV Non-Formulary Medication ([guaiFENesin/ CODEINE 100mg/ 10mg] ) 5 ml PRN Q6HRS PRN 12/16/18 16:30 UNV Ondansetron HCl (Zofran) 4 mg PRN Q8HRS PRN 12/16/18 15:00 12/17/18 14:59 DC Pantoprazole Sodium (Protonix) 40 mg DAILYAC 12/17/18 07:30 12/21/18 08:42 40 MG Sevelamer Carbonate (Renvela) 1,600 mg [id number] 12/16/18 18:00 12/21/18 06:15 1,600 MG Sodium Chloride 1,000 ml @ 400 mls/hr Q2H30M PRN 12/20/18 09:08 12/20/18 21:07 DC Vitamin B Complex/ Vitamin C ([place]-Abby) 1 tab DAILY 12/17/18 09:00 12/21/18 08:41 1 TAB Zolpidem Tartrate (Ambien) 5 mg PRN QHS PRN 12/17/18 09:30 Labs: Lab Laboratory Tests Test 12/20/18 12:20 12/20/18 13:24 12/20/18 17:00 12/20/18 20:46 White Blood Count 9.9 x10^3/uL (4.0-11.0) Red Blood Count 3.10 x10^6/uL (3.50-5.40) Hemoglobin 10.0 g/dL (12.0-15.5) Hematocrit 30.4 % (36.0-47.0) Mean Corpuscular Volume 98 fL (79-100) Mean Corpuscular Hemoglobin 32 pg (25-35) Mean Corpuscular Hemoglobin Concent 33 g/dL (31-37) Red Cell Distribution Width 16.8 % (11.5-14.5) Platelet Count 123 x10^3/uL (140-400) Neutrophils (%) (Auto) 81 % (31-73) Lymphocytes (%) (Auto) 10 % (24-48) Monocytes (%) (Auto) 7 % (0-9) Eosinophils (%) (Auto) 2 % (0-3) Basophils (%) (Auto) 1 % (0-3) Neutrophils # (Auto) 8.0 x10^3uL (1.8-7.7) Lymphocytes # (Auto) 1.0 x10^3/uL (1.0-4.8) Monocytes # (Auto) 0.7 x10^3/uL (0.0-1.1) Eosinophils # (Auto) 0.1 x10^3/uL (0.0-0.7) Basophils # (Auto) 0.1 x10^3/uL (0.0-0.2) Procalcitonin 1.09 ng/mL (0.00-0.10) Glucose (Fingerstick) 132 mg/dL (70-99) 278 mg/dL (70-99) 148 mg/dL (70-99) Test 12/21/18 07:33 Glucose (Fingerstick) 84 mg/dL (70-99) Objective: Assessment: Fever resolved, etiology unclear Leucocytosis resolved Nausea, vomiting ,diarrhea prior to admission now resolved h/o recurrent pneumonia,ct noted ESRD GERD Plan: Plan of Care cont levaquin renal dosing plans for likely dc home tomorrow per my discussion with Dr Chávez f/u cult and labs in am cont supportive care MADHAVI REAVES MD Dec 21, 2018 09:31
--- NOTE | 2018-12-21 15:37 | NUR ---
SW following pt. RT notes indicate pt will need to be on 2L continuos 02 at home. RN notified regarding Rx for 02. Will continue to follow.
[2018-12-21] MEDS: INSULIN GLARGINE 300 UNITS/3 ML INSULN.PEN. SQ SCH (22:10)
[2018-12-22] MEDS: HYDROcodone/APAP 5/325MG 1 TAB TABLET PO PRN (03:31)
[2018-12-22 03:40] VITALS: BP 147/53
[2018-12-22 07:00] VITALS: BP 130/50
[2018-12-22] MEDS: SEVELAMER CARBONATE 800 MG TABLET. PO SCH ×3 (07:00→17:16)
[2018-12-22] MEDS: IPRATRPIUM/ALBUTEROL 0.5/2.5MG 3 ML NEBU. NEB SCH ×4 (07:27→20:44)
[2018-12-22] MEDS: PANTOPRAZOLE 40 MG TABLET.DR. PO SCH (07:41)
[2018-12-22] MEDS: INSULIN LISPRO 300 UNITS/3 ML INSULN.PEN. SQ SCH ×3 (08:00→17:00)
--- NOTE | 2018-12-22 08:16 | PDOC ---
PROGRESS NOTES Subjective Subjective Patient reports episode of SOA overnight, resolved quickly. Feels OK now. Objective Objective Vital Signs Date Time Temp Pulse Resp B/P (MAP) Pulse Ox O2 Delivery O2 Flow Rate FiO2 12/22/18 07:52 Nasal Cannula 1.5 12/22/18 07:27 94 12/22/18 07:00 97.9 84 20 130/50 (76) 97.9 Intake and Output 12/22/18 06:59 Intake Total 590 ml Output Total 300 ml Balance 290 ml Intake Oral 590 ml Output Urine Total 300 ml # Voids 1 Physical Exam Abdomen: Normal bowel sounds, Soft, No tenderness Heart: Regular rate Extremities: No edema General: Alert, Oriented X3, No acute distress Lungs: Clear to auscultation Plan Plan of Care 1. Fever - resolved. Continue Levaquin per ID. 2. hypoxia - overnight oximetry was not done last night. Patient needs this to qualify for home O2, cannot use spot-check per SW. Nocturnal desaturation study ordered. Patient does not feel comfortable going home today without O2. 3. ESRD - stable, dialysis today. 4. DM2 - well controlled. 5. HTN - well controlled. Comment Review of Relevant I have reviewed the following items cosmo (where applicable) has been applied. Labs Laboratory Tests Test 12/20/18 12:20 12/20/18 13:24 12/20/18 17:00 12/20/18 20:46 White Blood Count 9.9 x10^3/uL (4.0-11.0) Red Blood Count 3.10 x10^6/uL (3.50-5.40) Hemoglobin 10.0 g/dL (12.0-15.5) Hematocrit 30.4 % (36.0-47.0) Mean Corpuscular Volume 98 fL (79-100) Mean Corpuscular Hemoglobin 32 pg (25-35) Mean Corpuscular Hemoglobin Concent 33 g/dL (31-37) Red Cell Distribution Width 16.8 % (11.5-14.5) Platelet Count 123 x10^3/uL (140-400) Neutrophils (%) (Auto) 81 % (31-73) Lymphocytes (%) (Auto) 10 % (24-48) Monocytes (%) (Auto) 7 % (0-9) Eosinophils (%) (Auto) 2 % (0-3) Basophils (%) (Auto) 1 % (0-3) Neutrophils # (Auto) 8.0 x10^3uL (1.8-7.7) Lymphocytes # (Auto) 1.0 x10^3/uL (1.0-4.8) Monocytes # (Auto) 0.7 x10^3/uL (0.0-1.1) Eosinophils # (Auto) 0.1 x10^3/uL (0.0-0.7) Basophils # (Auto) 0.1 x10^3/uL (0.0-0.2) Procalcitonin 1.09 ng/mL (0.00-0.10) Glucose (Fingerstick) 132 mg/dL (70-99) 278 mg/dL (70-99) 148 mg/dL (70-99) Test 12/21/18 07:33 12/21/18 11:16 12/21/18 14:56 12/21/18 20:02 Glucose (Fingerstick) 84 mg/dL (70-99) 174 mg/dL (70-99) 159 mg/dL (70-99) 170 mg/dL (70-99) Test 12/22/18 07:21 Glucose (Fingerstick) 155 mg/dL (70-99) Laboratory Tests Test 12/21/18 11:16 12/21/18 14:56 12/21/18 20:02 12/22/18 07:21 Glucose (Fingerstick) 174 mg/dL (70-99) 159 mg/dL (70-99) 170 mg/dL (70-99) 155 mg/dL (70-99) Microbiology 12/16/18 Blood Culture - Final, Complete NO GROWTH AFTER 5 DAYS Medications Current Medications Albuterol Sulfate (Ventolin Neb Soln) 10 mg 1X ONCE CONT NEB Last administered on 12/16/18at 13:39; Start 12/16/18 at 13:30; Stop 12/16/18 at 13:31; Status DC Acetaminophen (Tylenol) 1,000 mg 1X ONCE PO Last administered on 12/16/18at 13: 52; Start 12/16/18 at 13:45; Stop 12/16/18 at 13:47; Status DC Levofloxacin/ Dextrose (Levaquin Per Pharmacy) 1 each PRN DAILY PRN MC SEE COMMENTS; Start 12/16/18 at 15:00 Levofloxacin/ Dextrose 100 ml @ 100 mls/hr Q48H IV Last administered on at 15:25; Start 12/16/18 at 15:00 Ondansetron HCl (Zofran) 4 mg PRN Q8HRS PRN IV NAUSEA/VOMITING; Start 12/16/18 at 15:00; Stop 12/17/18 at 14:59; Status DC Fentanyl Citrate (Fentanyl 2ml Vial) 50 mcg PRN Q1HR PRN IV PAIN; Start at 15:00; Stop 12/17/18 at 14:59; Status DC Albuterol/ Ipratropium (Duoneb) 3 ml RTQID NEB Last administered on 12/16/18at 15 :05; Start 12/16/18 at 16:00; Stop 12/16/18 at 16:40; Status DC Acetaminophen (Tylenol) 650 mg PRN Q6HRS PRN PO MILD PAIN Last administered on 12/17/18 08:26; Start 12/16/18 at 16:30 Amlodipine Besylate (Norvasc) 10 mg DAILY PO Last administered on 12/21/18 08: 44; Start 12/17/18 at 09:00 Aspirin (Children'S Aspirin) 81 mg DAILYWBKFT PO Last administered on 12/21/18 08:43; Start 12/17/18 at 08:00 Cetirizine HCl (ZyrTEC) 10 mg DAILY PO Last administered on 12/21/18 08:43; Start 12/17/18 at 09:00 Clonidine HCl (Catapres) 0.1 mg BID PO Last administered on 12/21/18 22:04; Start 12/16/18 at 21:00 Gabapentin (Neurontin) 200 mg BID PO Last administered on 12/21/18 22:03; Start 12/16/18 at 21:00 Acetaminophen/ Hydrocodone Bitart (Lortab 5/325) 1 tab PRN Q6HRS PRN PO MODERATE-SEVERE PAIN Last administered on 12/22/18 03:31; Start 12/16/18 at 16:30 Lactobacillus Rhamnosus (Culturelle) 1 cap BID PO Last administered on 22:03; Start 12/16/18 at 21:00 Sevelamer Carbonate (Renvela) 1,600 mg [id number] PO Last administered on 12/21/18 18:07; Start 12/16/18 at 18:00 Albuterol Sulfate (Ventolin Neb Soln) 2.5 mg PRN Q6HRS PRN NEB SHORTNESS OF BREATH; Start 12/16/18 at 16:45 Non-Formulary Medication (Alendronate Sodium ) 70 mg Q2WKS PO ; Start 12/30/18 at 09:00; Status UNV Calcium/Vitamin D (Oscal D 500mg/ 200uts) 1 tab DAILY PO Last administered on 08:43; Start 12/17/18 at 09:00 Fluticasone Propionate (Flonase) 2 spray DAILY NS Last administered on 08:43; Start 12/17/18 at 09:00 Hydralazine HCl (Apresoline) 50 mg TID PO Last administered on 12/21/18 22:04; Start 12/16/18 at 17:00 Insulin Glargine (Lantus) 7 units QHS SQ Last administered on 12/17/18 21:47; Start 12/16/18 at 21:00; Stop 12/18/18 at 07:59; Status DC Albuterol/ Ipratropium (Duoneb) 3 ml RTQID NEB Last administered on 12/22/18 07 :27; Start 12/16/18 at 20:00 Labetalol HCl (Trandate) 200 mg DAILY PO Last administered on 12/21/18 08:44; Start 12/17/18 at 09:00 Pantoprazole Sodium (Protonix) 40 mg DAILYAC PO Last administered on 12/22/18 07:41; Start 12/17/18 at 07:30 Vitamin B Complex/ Vitamin C (Windy-Abby) 1 tab DAILY PO Last administered on 08:41; Start 12/17/18 at 09:00 Non-Formulary Medication ([guaiFENesin/ CODEINE 100mg/ 10mg] ) 5 ml PRN Q6HRS PRN PO COUGH; Start 12/16/18 at 16:30; Status UNV Insulin Human Lispro (HumaLOG) 0-5 UNITS TIDWMEALS SQ Last administered on at 18:13; Start 12/16/18 at 17:00 Dextrose (Dextrose 50%-Water Syringe) 12.5 gm PRN Q15MIN PRN IV SEE COMMENTS; Start 12/16/18 at 16:45 Zolpidem Tartrate (Ambien) 5 mg PRN QHS PRN PO INSOMNIA; Start 12/17/18 at 09:30 Insulin Glargine (Lantus) 8 units QHS SQ Last administered on 12/21/18at 22:10; Start 12/18/18 at 21:00 Sodium Chloride 1,000 ml @ 1,000 mls/hr Q1H PRN IV hypotension; Start 12/18/18 at 08:58; Stop 12/18/18 at 14:57; Status DC Albumin Human 200 ml @ 200 mls/hr 1X PRN PRN IV Hypotension; Start 12/18/18 at 09:00; Stop 12/18/18 at 14:59; Status DC Sodium Chloride 1,000 ml @ 400 mls/hr Q2H30M PRN IV PATENCY; Start 12/18/18 at 08:58; Stop 12/18/18 at 20:57; Status DC Info (PHARMACY MONITORING -- do not chart) 1 each PRN DAILY PRN MC SEE COMMENTS ; Start 12/18/18 at 09:00; Status UNV Info (PHARMACY MONITORING -- do not chart) 1 each PRN DAILY PRN MC SEE COMMENTS ; Start 12/18/18 at 09:00; Status Cancel Darbepoetin Yeison (Aranesp) 60 mcg Mo SQ Last administered on 12/18/18at 20:27; Start 12/18/18 at 21:00 Albuterol/ Ipratropium (Duoneb) 3 ml 1X STAT NEB Last administered on at 08:50; Start 12/19/18 at 08:50; Stop 12/19/18 at 08:58; Status DC Albuterol/ Ipratropium (Duoneb) 3 ml RTQID NEB Last administered on 12/19/18at 12 :38; Start 12/19/18 at 12:00; Stop 12/19/18 at 17:30; Status DC Sodium Chloride 1,000 ml @ 1,000 mls/hr Q1H PRN IV hypotension; Start 12/20/18 at 09:08; Stop 12/20/18 at 15:07; Status DC Sodium Chloride 1,000 ml @ 400 mls/hr Q2H30M PRN IV PATENCY; Start 12/20/18 at 09:08; Stop 12/20/18 at 21:07; Status DC Info (PHARMACY MONITORING -- do not chart) 1 each PRN DAILY PRN MC SEE COMMENTS ; Start 12/20/18 at 09:15 Active Scripts Active [guaiFENesin/CODEINE 100mg/10mg] 5 ML Liquid 5 Ml PO PRN Q6HRS PRN Proair Respiclick (Albuterol Sulfate) 90 Mcg Aer.pow.ba 1 Puff IH PRN Q6HRS PRN Culturelle (Lactobacillus Rhamnosus Gg) 1 Each Cap.sprink 1 Cap PO BID 30 Days Combivent Respimat Inhal (Ipratropium/Albuterol Sulfate) 4 Gm Aer.w.adap 2 Inh IH QID 30 Days Labetalol Hcl 200 Mg Tablet 1 Tab PO DAILY 30 Days Children's Aspirin (Aspirin) 81 Mg Tab.chew 81 Mg PO DAILYWBKFT 30 Days Reported Lantus (Insulin Glargine,Hum.rec.anlog) 100 Unit/1 Ml Vial 7 SQ HS Novolog (Insulin Aspart) 100 Unit/1 Ml Cartridge 100 Unit SQ TIDBFRMEAL Omeprazole 40 Mg Capsule.dr 40 Mg PO DAILY Hydrocodone-Apap 5-325 (Hydrocodone Bit/Acetaminophen) 1 Each Tablet 1 Tab PO Q6HRS PRN Hydralazine Hcl 50 Mg Tablet 1 Tab PO TID Gabapentin (Gabapentin) 100 Mg Capsule 200 Mg PO BID Cetirizine Hcl 10 Mg Tablet 1 Tab PO DAILY Tylenol (Acetaminophen) 325 Mg Tablet 2 Tab PO PRN Q6HRS PRN Clonidine Hcl 0.1 Mg Tablet 0.1 Mg PO BID Alendronate Sodium 70 Mg Tablet 70 Mg PO Q2WKS Flonase Allergy Relief (Fluticasone Propionate) 9.9 Ml [place].susp 2 Sprays NS DAILY Calcium 600 + Vit D 400 Caplet (Calcium Carbonate/Vitamin D3) 1 Each Tablet 1 Each PO DAILY Renvela (Sevelamer Carbonate) 800 Mg Tablet 2 Tab PO [id number] Norvasc (Amlodipine Besylate) 10 Mg Tablet 10 Mg PO DAILY Windy-Abby Rx Tablet (Vit B Cmplx 3/Fa/Vit C/Biotin) 1 Each Tablet 1 Each PO DAILY Vitals/I & O Vital Sign - Last 24 Hours 12/21/18 12/21/18 12/21/18 12/21/18 08:44 08:44 08:45 08:45 Pulse 70 70 70 70 B/P (MAP) 128/41 128/41 128/41 128/41 12/21/18 12/21/18 12/21/18 12/21/18 11:05 11:09 12:13 15:20 Temp 98.1 98.2 98.1 98.2 Pulse 70 62 Resp 14 14 B/P (MAP) 123/47 (72) 111/44 (66) Pulse Ox 96 86 97 97 O2 Delivery Nasal Cannula Nasal Cannula Nasal Cannula O2 Flow Rate 2.0 2.0 2.0 12/21/18 12/21/18 12/21/18 12/21/18 15:22 15:36 16:10 16:40 Pulse 62 Resp 17 B/P (MAP) 111/44 Pulse Ox 97 O2 Delivery Nasal Cannula Nasal Cannula Nasal Cannula O2 Flow Rate 2.0 2.0 12/21/18 12/21/18 12/21/18 12/21/18 19:15 20:00 20:27 22:04 Temp 97.3 97.3 Pulse 71 71 Resp 20 B/P (MAP) 128/49 (75) 128/49 Pulse Ox 98 98 O2 Delivery Nasal Cannula Nasal Cannula Nasal Cannula O2 Flow Rate 2.0 2.0 2.0 12/21/18 12/21/18 12/22/18 12/22/18 22:04 23:19 03:31 03:40 Temp 97.5 98.0 97.5 98.0 Pulse 71 78 88 Resp 20 20 18 B/P (MAP) 128/49 132/53 (79) 147/53 (84) Pulse Ox 97 98 90 O2 Delivery Nasal Cannula Nasal Cannula Nasal Cannula O2 Flow Rate 2.0 2.0 2.0 12/22/18 12/22/18 12/22/18 12/22/18 04:31 07:00 07:27 07:52 Temp 97.9 97.9 Pulse 84 Resp 18 20 B/P (MAP) 130/50 (76) Pulse Ox 96 93 94 O2 Delivery Nasal Cannula Nasal Cannula Nasal Cannula O2 Flow Rate 2.0 2.0 2.0 1.5 Intake and Output 12/21/18 12/21/18 12/22/18 14:59 22:59 06:59 Intake Total 240 ml 200 ml 150 ml Output Total 300 ml Balance -60 ml 200 ml 150 ml ARELI MATIAS MD Dec 22, 2018 08:16
[2018-12-22] MEDS ORDERED: IV NORMAL SALINE 1000ML BAG 1,000 ML IV PRN ×2 (08:51)
[2018-12-22] MEDS: FLUTICASONE 50MCG/NASAL SPRAY 16GM BOTTLE. NS SCH (09:00)
[2018-12-22] MEDS ORDERED: DIALYSIS PATIENT. MC PRN (09:00)
--- NOTE | 2018-12-22 09:22 | PDOC ---
Infectious Disease Note Subjective: Subjective pt has some nausea and vomiting last night dry heaves this am no fevers has cough but unable to bring any phlegm had bm yesterday ROS: ROS Negative except for above. Vital Signs: Vital Signs Vital Signs Date Time Temp Pulse Resp B/P (MAP) Pulse Ox O2 Delivery O2 Flow Rate FiO2 12/22/18 08:24 84 130/50 12/22/18 07:52 Nasal Cannula 1.5 12/22/18 07:27 94 12/22/18 07:00 97.9 20 97.9 Physical Exam: PHYSICAL EXAM GENERAL: Alert, oriented x3, nontoxic appearing female cooperative, in no acute distress. HEENT: Normocephalic, atraumatic, anicteric. No thrush. Oral mucosa moist. NECK: Supple. No JVD. LUNGS: Decreased breath sounds at bases. CARDIOVASCULAR: S1, S2 with no gallops or murmurs. ABDOMEN: Soft, nontender, nondistended. EXTREMITIES: No edema, no cyanosis. NEUROLOGIC: Alert and oriented x 3. Grossly nonfocal. PSYCHIATRIC: Cooperative, appropriate mood and affect. Medications: Inpatient Meds: Current Medications Medications (Trade) Dose Ordered Sig/Bill Start Time Stop Time Status Last Admin Dose Admin Acetaminophen (Tylenol) 650 mg PRN Q6HRS PRN 12/16/18 16:30 12/17/18 08:26 650 MG Acetaminophen/ Hydrocodone Bitart (Lortab 5/325) 1 tab PRN Q6HRS PRN 12/16/18 16:30 12/22/18 03:31 1 TAB Albumin Human 200 ml @ 200 mls/hr 1X PRN PRN 12/18/18 09:00 12/18/18 14:59 DC Albuterol Sulfate (Ventolin Neb Soln) 2.5 mg PRN Q6HRS PRN 12/16/18 16:45 Albuterol/ Ipratropium (Duoneb) 3 ml RTQID 12/19/18 12:00 12/19/18 17:30 DC 12/19/18 12:38 3 ML Amlodipine Besylate (Norvasc) 10 mg DAILY 12/17/18 09:00 12/21/18 08:44 10 MG Aspirin (Children'S Aspirin) 81 mg DAILYWBKFT 12/17/18 08:00 12/21/18 08:43 81 MG Calcium/Vitamin D (Oscal D 500mg/ 200uts) 1 tab DAILY 12/17/18 09:00 12/21/18 08:43 1 TAB Cetirizine HCl (ZyrTEC) 10 mg DAILY 12/17/18 09:00 12/21/18 08:43 10 MG Clonidine HCl (Catapres) 0.1 mg BID 12/16/18 21:00 12/21/18 22:04 0.1 MG Darbepoetin Yeison (Aranesp) 60 mcg Mo 12/18/18 21:00 12/18/18 20:27 60 MCG Dextrose (Dextrose 50%-Water Syringe) 12.5 gm PRN Q15MIN PRN 12/16/18 16:45 Fentanyl Citrate (Fentanyl 2ml Vial) 50 mcg PRN Q1HR PRN 12/16/18 15:00 12/17/18 14:59 DC Fluticasone Propionate (Flonase) 2 spray DAILY 12/17/18 09:00 12/21/18 08:43 2 SPRAY Gabapentin (Neurontin) 200 mg BID 12/16/18 21:00 12/21/18 22:03 200 MG Hydralazine HCl (Apresoline) 50 mg TID 12/16/18 17:00 12/21/18 22:04 50 MG Info (PHARMACY MONITORING -- do not chart) 1 each PRN DAILY PRN 12/22/18 09:00 12/22/18 09:00 DC Insulin Glargine (Lantus) 8 units QHS 12/18/18 21:00 12/21/18 22:10 8 UNITS Insulin Human Lispro (HumaLOG) 0-5 UNITS TIDWMEALS 12/16/18 17:00 12/21/18 18:13 2 UNITS Labetalol HCl (Trandate) 200 mg DAILY 12/17/18 09:00 12/21/18 08:44 200 MG Lactobacillus Rhamnosus (Culturelle) 1 cap BID 12/16/18 21:00 12/21/18 22:03 1 CAP Levofloxacin/ Dextrose 100 ml @ 100 mls/hr Q48H 12/16/18 15:00 12/20/18 15:25 100 MLS/HR Levofloxacin/ Dextrose (Levaquin Per Pharmacy) 1 each PRN DAILY PRN 12/16/18 15:00 Non-Formulary Medication (Alendronate Sodium ) 70 mg Q2WKS 12/30/18 09:00 UNV Non-Formulary Medication ([guaiFENesin/ CODEINE 100mg/ 10mg] ) 5 ml PRN Q6HRS PRN 12/16/18 16:30 UNV Ondansetron HCl (Zofran) 4 mg PRN Q8HRS PRN 12/16/18 15:00 12/17/18 14:59 DC Pantoprazole Sodium (Protonix) 40 mg DAILYAC 12/17/18 07:30 12/22/18 07:41 40 MG Sevelamer Carbonate (Renvela) 1,600 mg [id number] 12/16/18 18:00 12/21/18 18:07 1,600 MG Sodium Chloride 1,000 ml @ 400 mls/hr Q2H30M PRN 12/22/18 08:51 12/22/18 20:50 Vitamin B Complex/ Vitamin C (Windy-Abby) 1 tab DAILY 12/17/18 09:00 12/21/18 08:41 1 TAB Zolpidem Tartrate (Ambien) 5 mg PRN QHS PRN 12/17/18 09:30 Labs: Lab Laboratory Tests Test 12/21/18 11:16 12/21/18 14:56 12/21/18 20:02 12/22/18 07:21 Glucose (Fingerstick) 174 mg/dL (70-99) 159 mg/dL (70-99) 170 mg/dL (70-99) 155 mg/dL (70-99) Objective: Assessment: Fever resolved, etiology unclear Leucocytosis resolved Nausea, vomiting ,diarrhea prior to admission h/o recurrent pneumonia,ct noted ESRD GERD Nausea and vomiting yesterday Plan: Plan of Care cont levaquin renal dosing,dc after todays dose Maintain aspiration precautions f/u cult and labs in am cont supportive care MADHAVI REAVES MD Dec 22, 2018 09:22
--- NOTE | 2018-12-22 10:25 | PDOC ---
PULMONARY PROGRESS NOTES Subjective PT SOA IN MIDDLE OF NIGHT Vitals Vital Signs Date Time Temp Pulse Resp B/P (MAP) Pulse Ox O2 Delivery O2 Flow Rate FiO2 12/22/18 08:24 84 130/50 12/22/18 07:52 Nasal Cannula 1.5 12/22/18 07:27 94 12/22/18 07:00 97.9 20 97.9 ROS: No Nausea, No Chest Pain, No Abdominal Pain, No Increase Cough General: Alert, No acute distress Lungs: Crackles Cardiovascular: S1, S2 Abdomen: Soft, Non-tender Neuro Exam: Alert Extremities: No Edema Skin: Warm Labs Laboratory Tests Test 12/20/18 12:20 12/20/18 13:24 12/20/18 17:00 12/20/18 20:46 White Blood Count 9.9 x10^3/uL (4.0-11.0) Red Blood Count 3.10 x10^6/uL (3.50-5.40) Hemoglobin 10.0 g/dL (12.0-15.5) Hematocrit 30.4 % (36.0-47.0) Mean Corpuscular Volume 98 fL (79-100) Mean Corpuscular Hemoglobin 32 pg (25-35) Mean Corpuscular Hemoglobin Concent 33 g/dL (31-37) Red Cell Distribution Width 16.8 % (11.5-14.5) Platelet Count 123 x10^3/uL (140-400) Neutrophils (%) (Auto) 81 % (31-73) Lymphocytes (%) (Auto) 10 % (24-48) Monocytes (%) (Auto) 7 % (0-9) Eosinophils (%) (Auto) 2 % (0-3) Basophils (%) (Auto) 1 % (0-3) Neutrophils # (Auto) 8.0 x10^3uL (1.8-7.7) Lymphocytes # (Auto) 1.0 x10^3/uL (1.0-4.8) Monocytes # (Auto) 0.7 x10^3/uL (0.0-1.1) Eosinophils # (Auto) 0.1 x10^3/uL (0.0-0.7) Basophils # (Auto) 0.1 x10^3/uL (0.0-0.2) Procalcitonin 1.09 ng/mL (0.00-0.10) Glucose (Fingerstick) 132 mg/dL (70-99) 278 mg/dL (70-99) 148 mg/dL (70-99) Test 12/21/18 07:33 12/21/18 11:16 12/21/18 14:56 12/21/18 20:02 Glucose (Fingerstick) 84 mg/dL (70-99) 174 mg/dL (70-99) 159 mg/dL (70-99) 170 mg/dL (70-99) Test 12/22/18 07:21 Glucose (Fingerstick) 155 mg/dL (70-99) Laboratory Tests Test 12/21/18 11:16 12/21/18 14:56 12/21/18 20:02 12/22/18 07:21 Glucose (Fingerstick) 174 mg/dL (70-99) 159 mg/dL (70-99) 170 mg/dL (70-99) 155 mg/dL (70-99) Medications Active Scripts Medications Dose Route/Sig Max Daily Dose Days Date Category Lantus (Insulin Glargine,Hum.rec.anlog) 100 Unit/1 Ml Vial 7 SQ HS 12/05/18 Reported Novolog (Insulin Aspart) 100 Unit/1 Ml Cartridge 100 Unit SQ TIDBFRMEAL 12/05/18 Reported [guaiFENesin/CODEINE 100mg/10mg] 5 ML Liquid 5 Ml PO PRN Q6HRS PRN 11/10/18 Rx Proair Respiclick (Albuterol Sulfate) 90 Mcg Aer.pow.ba 1 Puff IH PRN Q6HRS PRN 04/10/18 Rx Culturelle (Lactobacillus Rhamnosus Gg) 1 Each Cap.sprink 1 Cap PO BID 30 12/15/17 Rx Combivent Respimat Inhal (Ipratropium/Albuterol Sulfate) 4 Gm Aer.w.adap 2 Inh IH QID 30 09/02/17 Rx Labetalol Hcl 200 Mg Tablet 1 Tab PO DAILY 30 09/02/17 Rx Omeprazole 40 Mg Capsule.dr 40 Mg PO DAILY 09/01/17 Reported Hydrocodone-Apap 5-325 (Hydrocodone Bit/Acetaminophen) 1 Each Tablet 1 Tab PO Q6HRS PRN 11/16/17 Reported Hydralazine Hcl 50 Mg Tablet 1 Tab PO TID 04/08/17 Reported Gabapentin (Gabapentin) 100 Mg Capsule 200 Mg PO BID 04/08/17 Reported Cetirizine Hcl 10 Mg Tablet 1 Tab PO DAILY 10/29/16 Reported Tylenol (Acetaminophen) 325 Mg Tablet 2 Tab PO PRN Q6HRS PRN 10/29/16 Reported Clonidine Hcl 0.1 Mg Tablet 0.1 Mg PO BID 09/17/16 Reported Alendronate Sodium 70 Mg Tablet 70 Mg PO Q2WKS 09/17/16 Reported Flonase Allergy Relief (Fluticasone Propionate) 9.9 Ml [place].susp 2 Sprays NS DAILY 09/17/16 Reported Children's Aspirin (Aspirin) 81 Mg Tab.chew 81 Mg PO DAILYWBKFT 30 11/04/15 Rx Calcium 600 + Vit D 400 Caplet (Calcium Carbonate/Vitamin D3) 1 Each Tablet 1 Each PO DAILY 10/24/15 Reported Renvela (Sevelamer Carbonate) 800 Mg Tablet 2 Tab PO [id number] 12/21/14 Reported Norvasc (Amlodipine Besylate) 10 Mg Tablet 10 Mg PO DAILY 11/11/13 Reported Windy-Abby Rx Tablet (Vit B Cmplx 3/Fa/Vit C/Biotin) 1 Each Tablet 1 Each PO DAILY 11/11/13 Reported Impression . IMPRESSION: 1. Fever, suspect possibly secondary to a viral despite negative influenza screen. 2. Abnormal CT chest revealing chronic changes in the faces. 3. End-stage renal disease, on hemodialysis. 4. Hypertension. 5. Type 2 diabetes. 6. HYPOXEMIA Plan . NOCT DESAT STUDY PENDING qualifies for Oxygen, O2 saturation on room air was 85%, unable to preform 6min walk antibiotics per TAMI LEIGH MD Dec 22, 2018 10:25
--- NOTE | 2018-12-22 10:36 | NUR ---
SW following pt. Spoke with RN and pt will do nocturnal desaturation study overnight to determine home 02 needs. Pt dialyzing today. Will continue to follow.
[2018-12-22] MEDS: LACTOBACILLUS RHAMNOSUS GG 1 CAPSULE. PO SCH ×2 (12:27→21:28)
[2018-12-22] MEDS: CETIRIZINE HCL 10 MG TABLET. PO SCH (12:28)
[2018-12-22] MEDS: ASPIRIN CHEWABLE 81 MG TABLET. PO SCH (12:28)
[2018-12-22] MEDS: cloNIDine HCL 0.1 MG TABLET PO SCH ×2 (12:28→21:28)
[2018-12-22] MEDS: FOLIC/VIT B COMP W-C (RENAL) TABLET. PO SCH (12:28)
[2018-12-22] MEDS: CALCIUM CARB/VIT D3 500/200 TABLET. PO SCH (12:28)
[2018-12-22] MEDS: GABAPENTIN 100 MG CAPSULE. PO SCH ×2 (12:29→21:29)
[2018-12-22] MEDS: LABETALOL HCL 200 MG TABLET PO SCH (12:29)
[2018-12-22] MEDS: amLODIPine BESYLATE 10 MG TABLET PO SCH (12:29)
[2018-12-22 15:00] VITALS: BP 155/54
--- NOTE | 2018-12-22 15:46 | PDOC ---
SUBJECTIVE ROS Seen on HD, states have been feeling tired No problems on HD OBJECTIVE Vital Signs Vital Signs Date Time Temp Pulse Resp B/P (MAP) Pulse Ox O2 Delivery O2 Flow Rate FiO2 12/22/18 15:07 98 Nasal Cannula 2.0 12/22/18 12:29 84 130/50 12/22/18 07:00 97.9 20 97.9 I & 0 Intake and Output 12/22/18 06:59 Intake Total 590 ml Output Total 300 ml Balance 290 ml Intake Oral 590 ml Output Urine Total 300 ml # Voids 1 PHYSICAL EXAM Physical Exam GENERAL - NAD HEENT: On O2 by NC . NECK supple LUNGS: Decreased breath sound at bases. CARDIAC: Without S3 or rub. ABDOMEN: Soft, nontender, no bruits. EXTREMITIES: Without edema. DIAGNOSIS/ASSESSMENT DIAGNOSIS/ASSESSMENT Assessment & Plan ESRD- MWF Seen on HD, tolerating well Continue as ordered, jone Crump Fever/Leucocytosis/Recurrent pneumonia Frequent Hospitalizations On Abx ,CT neg for consolidation Anemia- Hgb stable Aranesp as ordered DM- as per primary HTN-On Norvasc 10mg, Labetalol 200mg BID, Clonidine 0.1mg BID and Hydralazine 50mg TID COMMENT/RELEVANT DATA Meds Current Medications Medications (Trade) Dose Ordered Sig/Bill Start Time Stop Time Status Last Admin Dose Admin Acetaminophen (Tylenol) 650 mg PRN Q6HRS PRN 12/16/18 16:30 12/17/18 08:26 650 MG Acetaminophen/ Hydrocodone Bitart (Lortab 5/325) 1 tab PRN Q6HRS PRN 12/16/18 16:30 12/22/18 03:31 1 TAB Albumin Human 200 ml @ 200 mls/hr 1X PRN PRN 12/18/18 09:00 12/18/18 14:59 DC Albuterol Sulfate (Ventolin Neb Soln) 2.5 mg PRN Q6HRS PRN 12/16/18 16:45 Albuterol/ Ipratropium (Duoneb) 3 ml RTQID 12/19/18 12:00 12/19/18 17:30 DC 12/19/18 12:38 3 ML Amlodipine Besylate (Norvasc) 10 mg DAILY 12/17/18 09:00 12/22/18 12:29 10 MG Aspirin (Children'S Aspirin) 81 mg DAILYWBKFT 12/17/18 08:00 12/22/18 12:28 81 MG Calcium/Vitamin D (Oscal D 500mg/ 200uts) 1 tab DAILY 12/17/18 09:00 12/22/18 12:28 1 TAB Cetirizine HCl (ZyrTEC) 10 mg DAILY 12/17/18 09:00 12/22/18 12:28 10 MG Clonidine HCl (Catapres) 0.1 mg BID 12/16/18 21:00 12/22/18 12:28 0.1 MG Darbepoetin Yeison (Aranesp) 60 mcg Mo 12/18/18 21:00 12/18/18 20:27 60 MCG Dextrose (Dextrose 50%-Water Syringe) 12.5 gm PRN Q15MIN PRN 12/16/18 16:45 Fentanyl Citrate (Fentanyl 2ml Vial) 50 mcg PRN Q1HR PRN 12/16/18 15:00 12/17/18 14:59 DC Fluticasone Propionate (Flonase) 2 spray DAILY 12/17/18 09:00 12/21/18 08:43 2 SPRAY Gabapentin (Neurontin) 200 mg BID 12/16/18 21:00 12/22/18 12:29 200 MG Hydralazine HCl (Apresoline) 50 mg TID 12/16/18 17:00 12/21/18 22:04 50 MG Info (PHARMACY MONITORING -- do not chart) 1 each PRN DAILY PRN 12/22/18 09:00 12/22/18 09:00 DC Insulin Glargine (Lantus) 8 units QHS 12/18/18 21:00 12/21/18 22:10 8 UNITS Insulin Human Lispro (HumaLOG) 0-5 UNITS TIDWMEALS 12/16/18 17:00 12/21/18 18:13 2 UNITS Labetalol HCl (Trandate) 200 mg DAILY 12/17/18 09:00 12/22/18 12:29 200 MG Lactobacillus Rhamnosus (Culturelle) 1 cap BID 12/16/18 21:00 12/22/18 12:27 1 CAP Levofloxacin/ Dextrose 100 ml @ 100 mls/hr Q48H 12/16/18 15:00 12/22/18 15:23 100 MLS/HR Levofloxacin/ Dextrose (Levaquin Per Pharmacy) 1 each PRN DAILY PRN 12/16/18 15:00 Non-Formulary Medication (Alendronate Sodium ) 70 mg Q2WKS 12/30/18 09:00 UNV Non-Formulary Medication ([guaiFENesin/ CODEINE 100mg/ 10mg] ) 5 ml PRN Q6HRS PRN 12/16/18 16:30 UNV Ondansetron HCl (Zofran) 4 mg PRN Q8HRS PRN 12/16/18 15:00 12/17/18 14:59 DC Pantoprazole Sodium (Protonix) 40 mg DAILYAC 12/17/18 07:30 12/22/18 07:41 40 MG Sevelamer Carbonate (Renvela) 1,600 mg [id number] 12/16/18 18:00 12/22/18 12:27 1,600 MG Sodium Chloride 1,000 ml @ 400 mls/hr Q2H30M PRN 12/22/18 08:51 12/22/18 20:50 Vitamin B Complex/ Vitamin C ([place]) 1 tab DAILY 12/17/18 09:00 12/22/18 12:28 1 TAB Zolpidem Tartrate (Ambien) 5 mg PRN QHS PRN 12/17/18 09:30 Lab Laboratory Tests Test 12/21/18 20:02 12/22/18 07:21 12/22/18 12:14 12/22/18 12:27 Glucose (Fingerstick) 170 mg/dL (70-99) 155 mg/dL (70-99) 97 mg/dL (70-99) 88 mg/dL (70-99) Results All relevant outside records, renal labs, imaging studies, telemetry/EKG's were reviewed. XAVIER VELA MD Dec 22, 2018 15:46
[2018-12-22 19:59] VITALS: BP 153/46
[2018-12-22] MEDS: INSULIN GLARGINE 300 UNITS/3 ML INSULN.PEN. SQ SCH (21:30)
[2018-12-22 23:20] VITALS: BP 151/55
[2018-12-23 03:19] VITALS: BP 150/53
[2018-12-23] MEDS: SEVELAMER CARBONATE 800 MG TABLET. PO SCH ×3 (06:32→17:24)
[2018-12-23 07:00] VITALS: BP 145/55
[2018-12-23] MEDS: IPRATRPIUM/ALBUTEROL 0.5/2.5MG 3 ML NEBU. NEB SCH ×4 (07:07→19:03)
[2018-12-23] MEDS: INSULIN LISPRO 300 UNITS/3 ML INSULN.PEN. SQ SCH ×3 (08:00→17:27)
--- NOTE | 2018-12-23 09:04 | PDOC ---
Infectious Disease Note Subjective Subjective Tired O2 2L No F/C/N/V/SOA ROS ROS per HPI Vital Sign Vital Signs Vital Signs Date Time Temp Pulse Resp B/P (MAP) Pulse Ox O2 Delivery O2 Flow Rate FiO2 12/23/18 07:07 95 Nasal Cannula 1.0 12/23/18 07:00 98.3 75 18 145/55 (85) 98.3 Physical Exam PHYSICAL EXAM GENERAL: Propped up in bed, NAD HEENT: Oral mucosa moist. NECK: Supple. LUNGS: Clear anteriorly CARDIOVASCULAR: S1, S2 with no gallops or murmurs. ABDOMEN: Soft, nontender, nondistended. EXTREMITIES: No edema, no cyanosis. LUE-AVF NEUROLOGIC: Alert and oriented x 3. Grossly nonfocal. PIV ok Labs Lab Laboratory Tests Test 12/22/18 12:14 12/22/18 12:27 12/22/18 16:53 12/23/18 07:22 Glucose (Fingerstick) 97 mg/dL (70-99) 88 mg/dL (70-99) 117 mg/dL (70-99) 120 mg/dL (70-99) Micro Microbiology 12/16/18 Blood Culture - Final, Complete NO GROWTH AFTER 5 DAYS Objective Assessment Fever resolved, etiology unclear Leucocytosis resolved Nausea, vomiting ,diarrhea prior to admission h/o recurrent pneumonia,ct noted ESRD/HD GERD Nausea and vomiting yesterday Plan Plan of Care D/c levaquin Maintain aspiration precautions Supportive care Patient seen, examined, I agree with above. Assessment and plan was coformulated with [facility]. JOSE DREW APRN Dec 23, 2018 09:04 MADHAVI REAVES MD Dec 23, 2018 15:39
--- NOTE | 2018-12-23 09:33 | PDOC ---
PULMONARY PROGRESS NOTES Subjective sob better, has occ cough, no pain, is tired Vitals Vital Signs Date Time Temp Pulse Resp B/P (MAP) Pulse Ox O2 Delivery O2 Flow Rate FiO2 12/23/18 07:07 95 Nasal Cannula 1.0 12/23/18 07:00 98.3 75 18 145/55 (85) 98.3 ROS: No Nausea, No Chest Pain, No Abdominal Pain, No Increase Cough General: Alert, No acute distress HEENT: Other (nc at perrl) Lungs: Crackles Cardiovascular: S1, S2 Abdomen: Soft, Non-tender Neuro Exam: Alert Extremities: No Edema Skin: Warm Labs Laboratory Tests Test 12/21/18 11:16 12/21/18 14:56 12/21/18 20:02 12/22/18 07:21 Glucose (Fingerstick) 174 mg/dL (70-99) 159 mg/dL (70-99) 170 mg/dL (70-99) 155 mg/dL (70-99) Test 12/22/18 12:14 12/22/18 12:27 12/22/18 16:53 12/23/18 07:22 Glucose (Fingerstick) 97 mg/dL (70-99) 88 mg/dL (70-99) 117 mg/dL (70-99) 120 mg/dL (70-99) Laboratory Tests Test 12/22/18 12:14 12/22/18 12:27 12/22/18 16:53 12/23/18 07:22 Glucose (Fingerstick) 97 mg/dL (70-99) 88 mg/dL (70-99) 117 mg/dL (70-99) 120 mg/dL (70-99) Medications Active Scripts Medications Dose Route/Sig Max Daily Dose Days Date Category Lantus (Insulin Glargine,Hum.rec.anlog) 100 Unit/1 Ml Vial 7 SQ HS 12/05/18 Reported Novolog (Insulin Aspart) 100 Unit/1 Ml Cartridge 100 Unit SQ TIDBFRMEAL 12/05/18 Reported [guaiFENesin/CODEINE 100mg/10mg] 5 ML Liquid 5 Ml PO PRN Q6HRS PRN 11/10/18 Rx Proair Respiclick (Albuterol Sulfate) 90 Mcg Aer.pow.ba 1 Puff IH PRN Q6HRS PRN 04/10/18 Rx Culturelle (Lactobacillus Rhamnosus Gg) 1 Each Cap.sprink 1 Cap PO BID 30 12/15/17 Rx Combivent Respimat Inhal (Ipratropium/Albuterol Sulfate) 4 Gm Aer.w.adap 2 Inh IH QID 30 09/02/17 Rx Labetalol Hcl 200 Mg Tablet 1 Tab PO DAILY 30 09/02/17 Rx Omeprazole 40 Mg Capsule.dr 40 Mg PO DAILY 09/01/17 Reported Hydrocodone-Apap 5-325 (Hydrocodone Bit/Acetaminophen) 1 Each Tablet 1 Tab PO Q6HRS PRN 09/01/17 Reported Hydralazine Hcl 50 Mg Tablet 1 Tab PO TID 04/08/17 Reported Gabapentin (Gabapentin) 100 Mg Capsule 200 Mg PO BID 04/08/17 Reported Cetirizine Hcl 10 Mg Tablet 1 Tab PO DAILY 10/29/16 Reported Tylenol (Acetaminophen) 325 Mg Tablet 2 Tab PO PRN Q6HRS PRN 10/29/16 Reported Clonidine Hcl 0.1 Mg Tablet 0.1 Mg PO BID 09/17/16 Reported Alendronate Sodium 70 Mg Tablet 70 Mg PO Q2WKS 09/17/16 Reported Flonase Allergy Relief (Fluticasone Propionate) 9.9 Ml [place].susp 2 Sprays NS DAILY 09/17/16 Reported Children's Aspirin (Aspirin) 81 Mg Tab.chew 81 Mg PO DAILYWBKFT 30 11/04/15 Rx Calcium 600 + Vit D 400 Caplet (Calcium Carbonate/Vitamin D3) 1 Each Tablet 1 Each PO DAILY 10/24/15 Reported Renvela (Sevelamer Carbonate) 800 Mg Tablet 2 Tab PO [id number] 12/21/14 Reported Norvasc (Amlodipine Besylate) 10 Mg Tablet 10 Mg PO DAILY 11/11/13 Reported Windy-Abby Rx Tablet (Vit B Cmplx 3/Fa/Vit C/Biotin) 1 Each Tablet 1 Each PO DAILY 11/11/13 Reported Impression . IMPRESSION: 1. Fever, suspect possibly secondary to a viral despite negative influenza screen. resolved 2. Abnormal CT chest revealing chronic changes in the faces. 3. End-stage renal disease, on hemodialysis. 4. Hypertension. 5. Type 2 diabetes. 6. HYPOXEMIA Plan . 02 titration NOCT DESAT STUDY PENDING qualifies for Oxygen, O2 saturation on room air was 85%, unable to preform 6min walk antibiotics per ID BD discussed w pt LUIS CIFUENTES MD Dec 23, 2018 09:33
[2018-12-23] MEDS: GABAPENTIN 100 MG CAPSULE. PO SCH ×2 (09:47→20:26)
[2018-12-23] MEDS: amLODIPine BESYLATE 10 MG TABLET PO SCH (09:47)
[2018-12-23] MEDS: LACTOBACILLUS RHAMNOSUS GG 1 CAPSULE. PO SCH ×2 (09:47→20:24)
[2018-12-23] MEDS: FLUTICASONE 50MCG/NASAL SPRAY 16GM BOTTLE. NS SCH (09:47)
[2018-12-23] MEDS: PANTOPRAZOLE 40 MG TABLET.DR. PO SCH (09:47)
[2018-12-23] MEDS: FOLIC/VIT B COMP W-C (RENAL) TABLET. PO SCH (09:47)
[2018-12-23] MEDS: CETIRIZINE HCL 10 MG TABLET. PO SCH (09:48)
[2018-12-23] MEDS: LABETALOL HCL 200 MG TABLET PO SCH (09:48)
[2018-12-23] MEDS: ASPIRIN CHEWABLE 81 MG TABLET. PO SCH (09:48)
[2018-12-23] MEDS: cloNIDine HCL 0.1 MG TABLET PO SCH ×2 (09:48→20:25)
[2018-12-23] MEDS: CALCIUM CARB/VIT D3 500/200 TABLET. PO SCH (09:49)
[2018-12-23] MEDS: ACETAMINOPHEN 325 MG TABLET. PO PRN (09:54)
[2018-12-23 11:00] VITALS: BP 149/53
--- NOTE | 2018-12-23 12:00 | NUR ---
Received paper script orders for oxygen therapy at home. Notified Nazia house wrecker. She faxed all the information to the oxygen company and we are awaiting pre-approval for the oxygen and for the oxygen company to bring a tank to the hospital. Will continue to monitor.
--- NOTE | 2018-12-23 13:26 | PDOC ---
PROGRESS NOTES Subjective Subjective Patient reports bad dreams last night. Otherwise feels OK and ready to go home. Objective Objective Vital Signs Date Time Temp Pulse Resp B/P (MAP) Pulse Ox O2 Delivery O2 Flow Rate FiO2 12/23/18 11:00 98.0 80 20 149/53 (85) 95 Nasal Cannula 2.0 98.0 Intake and Output 12/23/18 07:00 Intake Total 640 ml Balance 640 ml Intake Oral 640 ml Physical Exam Abdomen: Normal bowel sounds, Soft, No tenderness Heart: Regular rate Extremities: No edema General: Alert, Oriented X3, No acute distress Lungs: Other (few fine crackes bilateral bases, otherwise CTA) Plan Plan of Care 1. Atypical pneumonia with hypoxia - patient had desaturation to 63% on RA last night, treated with 1L O2 per NC. Home today on oxygen. Fever resolved. 2. ESRD - stable, continue outpatient dialysis as scheduled. 3. DM2 - controlled, continue insulins. 4. HTN - controlled, continue home medication. Comment Review of Relevant I have reviewed the following items cosmo (where applicable) has been applied. Labs Laboratory Tests Test 12/21/18 14:56 12/21/18 20:02 12/22/18 07:21 12/22/18 12:14 Glucose (Fingerstick) 159 mg/dL (70-99) 170 mg/dL (70-99) 155 mg/dL (70-99) 97 mg/dL (70-99) Test 12/22/18 12:27 12/22/18 16:53 12/23/18 07:22 12/23/18 10:48 Glucose (Fingerstick) 88 mg/dL (70-99) 117 mg/dL (70-99) 120 mg/dL (70-99) 213 mg/dL (70-99) Laboratory Tests Test 12/22/18 16:53 12/23/18 07:22 12/23/18 10:48 Glucose (Fingerstick) 117 mg/dL (70-99) 120 mg/dL (70-99) 213 mg/dL (70-99) Microbiology 12/16/18 Blood Culture - Final, Complete NO GROWTH AFTER 5 DAYS Medications Current Medications Albuterol Sulfate (Ventolin Neb Soln) 10 mg 1X ONCE CONT NEB Last administered on 12/16/18at 13:39; Start 12/16/18 at 13:30; Stop 12/16/18 at 13:31; Status DC Acetaminophen (Tylenol) 1,000 mg 1X ONCE PO Last administered on 12/16/18at 13: 52; Start 12/16/18 at 13:45; Stop 12/16/18 at 13:47; Status DC Levofloxacin/ Dextrose (Levaquin Per Pharmacy) 1 each PRN DAILY PRN MC SEE COMMENTS; Start 12/16/18 at 15:00; Stop 12/23/18 at 09:04; Status DC Levofloxacin/ Dextrose 100 ml @ 100 mls/hr Q48H IV Last administered on at 15:23; Start 12/16/18 at 15:00; Stop 12/23/18 at 09:04; Status DC Ondansetron HCl (Zofran) 4 mg PRN Q8HRS PRN IV NAUSEA/VOMITING; Start 12/16/18 at 15:00; Stop 12/17/18 at 14:59; Status DC Fentanyl Citrate (Fentanyl 2ml Vial) 50 mcg PRN Q1HR PRN IV PAIN; Start at 15:00; Stop 12/17/18 at 14:59; Status DC Albuterol/ Ipratropium (Duoneb) 3 ml RTQID NEB Last administered on 12/16/18at 15 :05; Start 12/16/18 at 16:00; Stop 12/16/18 at 16:40; Status DC Acetaminophen (Tylenol) 650 mg PRN Q6HRS PRN PO MILD PAIN Last administered on 12/23/18at 09:54; Start 12/16/18 at 16:30 Amlodipine Besylate (Norvasc) 10 mg DAILY PO Last administered on 12/23/18 09: 47; Start 12/17/18 at 09:00 Aspirin (Children'S Aspirin) 81 mg DAILYWBKFT PO Last administered on 12/23/18 09:48; Start 12/17/18 at 08:00 Cetirizine HCl (ZyrTEC) 10 mg DAILY PO Last administered on 12/23/18 09:48; Start 12/17/18 at 09:00 Clonidine HCl (Catapres) 0.1 mg BID PO Last administered on 12/23/18at 09:48; Start 12/16/18 at 21:00 Gabapentin (Neurontin) 200 mg BID PO Last administered on 12/23/18 09:47; Start 12/16/18 at 21:00 Acetaminophen/ Hydrocodone Bitart (Lortab 5/325) 1 tab PRN Q6HRS PRN PO MODERATE-SEVERE PAIN Last administered on 12/22/18 03:31; Start 12/16/18 at 16:30 Lactobacillus Rhamnosus (Culturelle) 1 cap BID PO Last administered on 09:47; Start 12/16/18 at 21:00 Sevelamer Carbonate (Renvela) 1,600 mg [id number] PO Last administered on 12/23/18 12:22; Start 12/16/18 at 18:00 Albuterol Sulfate (Ventolin Neb Soln) 2.5 mg PRN Q6HRS PRN NEB SHORTNESS OF BREATH; Start 12/16/18 at 16:45 Non-Formulary Medication (Alendronate Sodium ) 70 mg Q2WKS PO ; Start 12/30/18 at 09:00; Status UNV Calcium/Vitamin D (Oscal D 500mg/ 200uts) 1 tab DAILY PO Last administered on 09:49; Start 12/17/18 at 09:00 Fluticasone Propionate (Flonase) 2 spray DAILY NS Last administered on 09:47; Start 12/17/18 at 09:00 Hydralazine HCl (Apresoline) 50 mg TID PO Last administered on 12/23/18 09:48; Start 12/16/18 at 17:00 Insulin Glargine (Lantus) 7 units QHS SQ Last administered on 12/17/18 21:47; Start 12/16/18 at 21:00; Stop 12/18/18 at 07:59; Status DC Albuterol/ Ipratropium (Duoneb) 3 ml RTQID NEB Last administered on 12/23/18 10 :56; Start 12/16/18 at 20:00 Labetalol HCl (Trandate) 200 mg DAILY PO Last administered on 12/23/18 09:48; Start 12/17/18 at 09:00 Pantoprazole Sodium (Protonix) 40 mg DAILYAC PO Last administered on 3/9/19at 09:47; Start 12/17/18 at 07:30 Vitamin B Complex/ Vitamin C ([place]-Abby) 1 tab DAILY PO Last administered on 12/23/18at 09:47; Start 12/17/18 at 09:00 Non-Formulary Medication ([guaiFENesin/ CODEINE 100mg/ 10mg] ) 5 ml PRN Q6HRS PRN PO COUGH; Start 12/16/18 at 16:30; Status UNV Insulin Human Lispro (HumaLOG) 0-5 UNITS TIDWMEALS SQ Last administered on at 12:26; Start 12/16/18 at 17:00 Dextrose (Dextrose 50%-Water Syringe) 12.5 gm PRN Q15MIN PRN IV SEE COMMENTS; Start 12/16/18 at 16:45 Zolpidem Tartrate (Ambien) 5 mg PRN QHS PRN PO INSOMNIA; Start 12/17/18 at 09:30 Insulin Glargine (Lantus) 8 units QHS SQ Last administered on 12/21/18at 22:10; Start 12/18/18 at 21:00 Sodium Chloride 1,000 ml @ 1,000 mls/hr Q1H PRN IV hypotension; Start 12/18/18 at 08:58; Stop 12/18/18 at 14:57; Status DC Albumin Human 200 ml @ 200 mls/hr 1X PRN PRN IV Hypotension; Start 12/18/18 at 09:00; Stop 12/18/18 at 14:59; Status DC Sodium Chloride 1,000 ml @ 400 mls/hr Q2H30M PRN IV PATENCY; Start 12/18/18 at 08:58; Stop 12/18/18 at 20:57; Status DC Info (PHARMACY MONITORING -- do not chart) 1 each PRN DAILY PRN MC SEE COMMENTS ; Start 12/18/18 at 09:00; Status UNV Info (PHARMACY MONITORING -- do not chart) 1 each PRN DAILY PRN MC SEE COMMENTS ; Start 12/18/18 at 09:00; Status Cancel Darbepoetin Yeison (Aranesp) 60 mcg Mo SQ Last administered on 12/18/18at 20:27; Start 12/18/18 at 21:00 Albuterol/ Ipratropium (Duoneb) 3 ml 1X STAT NEB Last administered on at 08:50; Start 12/19/18 at 08:50; Stop 12/19/18 at 08:58; Status DC Albuterol/ Ipratropium (Duoneb) 3 ml RTQID NEB Last administered on 12/19/18at 12 :38; Start 12/19/18 at 12:00; Stop 12/19/18 at 17:30; Status DC Sodium Chloride 1,000 ml @ 1,000 mls/hr Q1H PRN IV hypotension; Start 12/20/18 at 09:08; Stop 12/20/18 at 15:07; Status DC Sodium Chloride 1,000 ml @ 400 mls/hr Q2H30M PRN IV PATENCY; Start 12/20/18 at 09:08; Stop 12/20/18 at 21:07; Status DC Info (PHARMACY MONITORING -- do not chart) 1 each PRN DAILY PRN MC SEE COMMENTS ; Start 12/20/18 at 09:15 Sodium Chloride 1,000 ml @ 1,000 mls/hr Q1H PRN IV hypotension; Start 12/22/18 at 08:51; Stop 12/22/18 at 14:50; Status DC Sodium Chloride 1,000 ml @ 400 mls/hr Q2H30M PRN IV PATENCY; Start 12/22/18 at 08:51; Stop 12/22/18 at 20:50; Status DC Info (PHARMACY MONITORING -- do not chart) 1 each PRN DAILY PRN MC SEE COMMENTS ; Start 12/22/18 at 09:00; Stop 12/22/18 at 09:00; Status DC Active Scripts Active [guaiFENesin/CODEINE 100mg/10mg] 5 ML Liquid 5 Ml PO PRN Q6HRS PRN Proair Respiclick (Albuterol Sulfate) 90 Mcg Aer.pow.ba 1 Puff IH PRN Q6HRS PRN Culturelle (Lactobacillus Rhamnosus Gg) 1 Each Cap.sprink 1 Cap PO BID 30 Days Combivent Respimat Inhal (Ipratropium/Albuterol Sulfate) 4 Gm Aer.w.adap 2 Inh IH QID 30 Days Labetalol Hcl 200 Mg Tablet 1 Tab PO DAILY 30 Days Children's Aspirin (Aspirin) 81 Mg Tab.chew 81 Mg PO DAILYWBKFT 30 Days Reported Lantus (Insulin Glargine,Hum.rec.anlog) 100 Unit/1 Ml Vial 7 SQ HS Novolog (Insulin Aspart) 100 Unit/1 Ml Cartridge 100 Unit SQ TIDBFRMEAL Omeprazole 40 Mg Capsule.dr 40 Mg PO DAILY Hydrocodone-Apap 5-325 (Hydrocodone Bit/Acetaminophen) 1 Each Tablet 1 Tab PO Q6HRS PRN Hydralazine Hcl 50 Mg Tablet 1 Tab PO TID Gabapentin (Gabapentin) 100 Mg Capsule 200 Mg PO BID Cetirizine Hcl 10 Mg Tablet 1 Tab PO DAILY Tylenol (Acetaminophen) 325 Mg Tablet 2 Tab PO PRN Q6HRS PRN Clonidine Hcl 0.1 Mg Tablet 0.1 Mg PO BID Alendronate Sodium 70 Mg Tablet 70 Mg PO Q2WKS Flonase Allergy Relief (Fluticasone Propionate) 9.9 Ml [place].susp 2 Sprays NS DAILY Calcium 600 + Vit D 400 Caplet (Calcium Carbonate/Vitamin D3) 1 Each Tablet 1 Each PO DAILY Renvela (Sevelamer Carbonate) 800 Mg Tablet 2 Tab PO [id number] Norvasc (Amlodipine Besylate) 10 Mg Tablet 10 Mg PO DAILY Windy-Abby Rx Tablet (Vit B Cmplx 3/Fa/Vit C/Biotin) 1 Each Tablet 1 Each PO DAILY Vitals/I & O Vital Sign - Last 24 Hours 12/22/18 12/22/18 12/22/18 12/22/18 15:00 15:07 19:59 20:10 Temp 98.3 98.9 98.3 98.9 Pulse 85 62 Resp 20 20 B/P (MAP) 155/54 (87) 153/46 (81) Pulse Ox 96 98 98 O2 Delivery Nasal Cannula Nasal Cannula Nasal Cannula Nasal Cannula O2 Flow Rate 2.0 2.0 2.0 2.0 12/22/18 12/22/18 12/22/18 12/22/18 20:47 21:28 21:28 23:20 Temp 98.6 98.6 Pulse 62 62 80 Resp 16 B/P (MAP) 153/46 153/46 151/55 (87) Pulse Ox 99 95 O2 Delivery Nasal Cannula Nasal Cannula O2 Flow Rate 2.0 1.0 12/23/18 12/23/18 12/23/18 12/23/18 03:19 07:00 07:07 08:00 Temp 99.4 98.3 99.4 98.3 Pulse 79 75 Resp 16 18 B/P (MAP) 150/53 (85) 145/55 (85) Pulse Ox 95 94 95 O2 Delivery Nasal Cannula Nasal Cannula Nasal Cannula Nasal Cannula O2 Flow Rate 1.0 2.0 1.0 2.0 12/23/18 12/23/18 12/23/18 12/23/18 09:47 09:48 09:48 09:48 Pulse 75 75 75 75 B/P (MAP) 145/55 145/55 145/55 145/55 12/23/18 12/23/18 10:56 11:00 Temp 98.0 98.0 Pulse 80 Resp 20 B/P (MAP) 149/53 (85) Pulse Ox 95 O2 Delivery Nasal Cannula Nasal Cannula O2 Flow Rate 2.0 2.0 Intake and Output 12/22/18 12/22/18 12/23/18 15:00 23:00 07:00 Intake Total 240 ml 100 ml 300 ml Balance 240 ml 100 ml 300 ml ARELI MATIAS MD Dec 23, 2018 13:26
[2018-12-23 15:00] VITALS: BP 104/40
--- NOTE | 2018-12-23 17:14 | NUR ---
Notified Dr. Banuelos of the delay in the insurance approval for oxygen therapy. She stated it will be okay for the patient to stay one more night because she cannot discharge without home oxygen. Will continue to monitor.
--- NOTE | 2018-12-23 19:27 | DS ---
DATE OF DISCHARGE: 12/25/18 CHIEF COMPLAINT: Fever and shakiness. HISTORY OF PRESENT ILLNESS: The patient is a 68-year-old female who was recently discharged from [facility] after treatment for atypical pneumonia. She had been doing fairly well at home until the day prior to this admission when she developed a fever. She also had a sore throat and a nonproductive cough. When her symptoms persisted, she came to the Emergency Room and was admitted for further treatment. HOSPITAL COURSE: The patient was seen in consultation by Pulmonary Medicine, Infectious Disease and Nephrology. Chest x-ray at admission showed a persistent left basilar infiltrate. CT of the chest showed some chronic atelectasis, but no specific infiltrate. The patient was treated with Levaquin per Infectious Disease recommendations. She has had a good improvement in her symptoms with this. Blood culture is negative. The patient has been afebrile for the past 5 days. She has received the equivalent of 8 days of Levaquin and so no further antibiotics are presently indicated. Some hypoxia has persisted for her. She is unable to do a 6-minute walk to assess for home oxygen and she is not ambulatory, so an overnight room air oximetry was done last night. The patient's oxygen saturation quickly dropped to 63% on room air while asleep. This was well treated with 1 liter of oxygen per nasal cannula and her saturations remained over 90% for the rest of the night. Home oxygen will be ordered for her, 1-2 liters continuous. The patient's chronic medical conditions including end-stage renal disease, hypertension, and diabetes were well controlled with her usual medication. She feels better and will be discharged home today. FINAL DIAGNOSES: 1. Atypical pneumonia with hypoxia. 2. End-stage renal disease. 3. Diabetes mellitus type 2, insulin-dependent. 4. Hypertension. DISCHARGE MEDICATIONS: Albuterol nebulized treatments as needed, alendronate 70 mg every other week, amlodipine 10 mg daily, aspirin 81 mg daily, calcium with vitamin D daily, cetirizine 10 mg daily, clonidine 0.1 mg b.i.d., gabapentin 200 mg b.i.d., hydralazine 50 mg t.i.d., [place] 5/325 p.r.n., NovoLog insulin sliding scale with meals, Lantus insulin 7 units at bedtime, Combivent inhaler q.i.d., labetalol 200 mg daily, omeprazole 40 mg daily, Renvela 800 mg 2 tablets t.i.d. a.c., renal vitamin 1 daily. FOLLOWUP: Followup is with Dr. Banuelos as needed. Follow up for dialysis as scheduled. ADDENDUM: Patient was not discharged on 12/23/18 as there was a delay in obtaining home oxygen for her. This was not able to be accomplished over the weekend but is being arranged presently so she should be able to go home after dialysis today. ARELI BANUELOS MD DR: EVONNE/ronaldo JOB#: [id number] / [id number] NISHA
[2018-12-23 19:42] VITALS: BP 108/45
[2018-12-23] MEDS: INSULIN GLARGINE 300 UNITS/3 ML INSULN.PEN. SQ SCH (20:31)
[2018-12-23 23:19] VITALS: BP 111/51
[2018-12-24 03:46] VITALS: BP 111/51
[2018-12-24 07:00] VITALS: BP 112/45
[2018-12-24] MEDS: SEVELAMER CARBONATE 800 MG TABLET. PO SCH ×3 (07:10→18:34)
[2018-12-24] MEDS: IPRATRPIUM/ALBUTEROL 0.5/2.5MG 3 ML NEBU. NEB SCH ×4 (07:41→21:03)
[2018-12-24] MEDS: INSULIN LISPRO 300 UNITS/3 ML INSULN.PEN. SQ SCH ×3 (08:00→16:58)
[2018-12-24] MEDS: FLUTICASONE 50MCG/NASAL SPRAY 16GM BOTTLE. NS SCH (08:43)
[2018-12-24] MEDS: FOLIC/VIT B COMP W-C (RENAL) TABLET. PO SCH (08:44)
[2018-12-24] MEDS: ASPIRIN CHEWABLE 81 MG TABLET. PO SCH (08:44)
[2018-12-24] MEDS: GABAPENTIN 100 MG CAPSULE. PO SCH ×2 (08:44→20:55)
[2018-12-24] MEDS: amLODIPine BESYLATE 10 MG TABLET PO SCH (08:44)
[2018-12-24] MEDS: LACTOBACILLUS RHAMNOSUS GG 1 CAPSULE. PO SCH ×2 (08:45→20:55)
[2018-12-24] MEDS: LABETALOL HCL 200 MG TABLET PO SCH (08:45)
[2018-12-24] MEDS: PANTOPRAZOLE 40 MG TABLET.DR. PO SCH ×2 (08:45→16:54)
[2018-12-24] MEDS: CALCIUM CARB/VIT D3 500/200 TABLET. PO SCH (08:46)
[2018-12-24] MEDS: cloNIDine HCL 0.1 MG TABLET PO SCH ×2 (08:46→20:39)
[2018-12-24] MEDS: CETIRIZINE HCL 10 MG TABLET. PO SCH (08:46)
--- NOTE | 2018-12-24 09:54 | PDOC ---
Infectious Disease Note Subjective Subjective Tired, didn't slepp well, otherwise feeling alright No F/C/N/V/SOA/pain ROS ROS per HPI Vital Sign Vital Signs Vital Signs Date Time Temp Pulse Resp B/P (MAP) Pulse Ox O2 Delivery O2 Flow Rate FiO2 12/24/18 08:46 68 112/45 12/24/18 07:43 100 Nasal Cannula 2.0 12/24/18 07:00 98.8 18 98.8 Physical Exam PHYSICAL EXAM GENERAL: Propped up in bed, NAD HEENT: Oral mucosa moist. NECK: Supple. LUNGS: Clear anteriorly CARDIOVASCULAR: S1, S2 with no gallops or murmurs. ABDOMEN: Soft, nontender, nondistended. EXTREMITIES: No edema, no cyanosis. LUE-AVF NEUROLOGIC: Alert and oriented x 3. Grossly nonfocal. PIV Labs Lab Laboratory Tests Test 12/23/18 10:48 12/23/18 16:49 12/23/18 19:51 12/24/18 07:17 Glucose (Fingerstick) 213 mg/dL (70-99) 241 mg/dL (70-99) 212 mg/dL (70-99) 131 mg/dL (70-99) Micro Microbiology 12/16/18 Blood Culture - Final, Complete NO GROWTH AFTER 5 DAYS Objective Assessment Fever resolved, etiology unclear Leucocytosis resolved Nausea, vomiting ,diarrhea - better h/o recurrent pneumonia, ct noted ESRD/HD GERD Plan Plan of Care Continue to observe off antibiotics Maintain aspiration precautions Supportive care Patient seen, examined, I agree with above. Assessment and plan was coformulated with [employer]K [employer]. JOSE DREW APRN Dec 24, 2018 09:54 MADHAVI REAVES MD Dec 24, 2018 14:48
--- NOTE | 2018-12-24 10:13 | PDOC ---
PULMONARY PROGRESS NOTES Subjective sob better, has cough, has stomach pain, is tired Vitals Vital Signs Date Time Temp Pulse Resp B/P (MAP) Pulse Ox O2 Delivery O2 Flow Rate FiO2 12/24/18 08:46 68 112/45 12/24/18 07:43 100 Nasal Cannula 2.0 12/24/18 07:00 98.8 18 98.8 ROS: No Nausea, No Chest Pain, No Abdominal Pain, No Increase Cough General: Alert, No acute distress HEENT: Other (nc at perrl) Lungs: Crackles Cardiovascular: S1, S2 Abdomen: Soft, Non-tender Neuro Exam: Alert Extremities: No Edema Skin: Warm Labs Laboratory Tests Test 12/22/18 12:14 12/22/18 12:27 12/22/18 16:53 12/22/18 21:10 Glucose (Fingerstick) 97 mg/dL (70-99) 88 mg/dL (70-99) 117 mg/dL (70-99) 133 mg/dL (70-99) Test 12/23/18 07:22 12/23/18 10:48 12/23/18 16:49 12/23/18 19:51 Glucose (Fingerstick) 120 mg/dL (70-99) 213 mg/dL (70-99) 241 mg/dL (70-99) 212 mg/dL (70-99) Test 12/24/18 07:17 Glucose (Fingerstick) 131 mg/dL (70-99) Laboratory Tests Test 12/23/18 10:48 12/23/18 16:49 12/23/18 19:51 12/24/18 07:17 Glucose (Fingerstick) 213 mg/dL (70-99) 241 mg/dL (70-99) 212 mg/dL (70-99) 131 mg/dL (70-99) Medications Active Scripts Medications Dose Route/Sig Max Daily Dose Days Date Category Lantus (Insulin Glargine,Hum.rec.anlog) 100 Unit/1 Ml Vial 7 SQ HS 12/05/18 Reported Novolog (Insulin Aspart) 100 Unit/1 Ml Cartridge 100 Unit SQ TIDBFRMEAL 12/05/18 Reported [guaiFENesin/CODEINE 100mg/10mg] 5 ML Liquid 5 Ml PO PRN Q6HRS PRN 11/10/18 Rx Proair Respiclick (Albuterol Sulfate) 90 Mcg Aer.pow.ba 1 Puff IH PRN Q6HRS PRN 04/10/18 Rx Culturelle (Lactobacillus Rhamnosus Gg) 1 Each Cap.sprink 1 Cap PO BID 30 12/15/17 Rx Combivent Respimat Inhal (Ipratropium/Albuterol Sulfate) 4 Gm Aer.w.adap 2 Inh IH QID 30 09/02/17 Rx Labetalol Hcl 200 Mg Tablet 1 Tab PO DAILY 30 09/02/17 Rx Omeprazole 40 Mg Capsule.dr 40 Mg PO DAILY 09/01/17 Reported Hydrocodone-Apap 5-325 (Hydrocodone Bit/Acetaminophen) 1 Each Tablet 1 Tab PO Q6HRS PRN 09/01/17 Reported Hydralazine Hcl 50 Mg Tablet 1 Tab PO TID 04/08/17 Reported Gabapentin (Gabapentin) 100 Mg Capsule 200 Mg PO BID 04/08/17 Reported Cetirizine Hcl 10 Mg Tablet 1 Tab PO DAILY 10/29/16 Reported Tylenol (Acetaminophen) 325 Mg Tablet 2 Tab PO PRN Q6HRS PRN 10/29/16 Reported Clonidine Hcl 0.1 Mg Tablet 0.1 Mg PO BID 09/17/16 Reported Alendronate Sodium 70 Mg Tablet 70 Mg PO Q2WKS 09/17/16 Reported Flonase Allergy Relief (Fluticasone Propionate) 9.9 Ml [place].susp 2 Sprays NS DAILY 09/17/16 Reported Children's Aspirin (Aspirin) 81 Mg Tab.chew 81 Mg PO DAILYWBKFT 30 11/04/15 Rx Calcium 600 + Vit D 400 Caplet (Calcium Carbonate/Vitamin D3) 1 Each Tablet 1 Each PO DAILY 10/24/15 Reported Renvela (Sevelamer Carbonate) 800 Mg Tablet 2 Tab PO [id number] 12/21/14 Reported Norvasc (Amlodipine Besylate) 10 Mg Tablet 10 Mg PO DAILY 11/11/13 Reported Windy-Abby Rx Tablet (Vit B Cmplx 3/Fa/Vit C/Biotin) 1 Each Tablet 1 Each PO DAILY 11/11/13 Reported Impression . IMPRESSION: 1. Fever, suspect possibly secondary to a viral despite negative influenza screen. resolved 2. Abnormal CT chest revealing chronic changes in the faces. 3. End-stage renal disease, on hemodialysis. 4. Hypertension. 5. Type 2 diabetes. 6. HYPOXEMIA Plan . 02 titration increase protonix to bid NOCT DESAT STUDY PENDING qualifies for Oxygen, O2 saturation on room air was 85%, unable to preform 6min walk, recheck RA pulse ox at the time of dc monitor off abx BD discussed w pt LUIS CIFUENTES MD Dec 24, 2018 10:13
[2018-12-24 11:00] VITALS: BP 127/36
--- NOTE | 2018-12-24 11:25 | PDOC ---
PROGRESS NOTES Subjective Subjective Patient feels shaky. Otherwise OK, feels able to go home today if oxygen can be arranged. Objective Objective Vital Signs Date Time Temp Pulse Resp B/P (MAP) Pulse Ox O2 Delivery O2 Flow Rate FiO2 12/24/18 08:46 68 112/45 12/24/18 07:43 100 Nasal Cannula 2.0 12/24/18 07:00 98.8 18 98.8 Intake and Output 12/24/18 07:00 Intake Total 550 ml Balance 550 ml Intake Oral 550 ml # Voids 1 # Bowel Movements 1 Physical Exam Abdomen: Normal bowel sounds, Soft, No tenderness Heart: Regular rate Extremities: No edema General: Alert, Oriented X3, No acute distress Lungs: Other (few crackles in bases, otherwise CTA) Plan Plan of Care 1. Atypical pneumonia with hypoxia - not able to be discharged home yesterday as home oxygen was not arranged. Should be able to go today. 2. ESRD - stable, dialysis as scheduled. 3. HTN - controlled, continue present medication. 4. DM2 - controlled, continue insulins as needed. Comment Review of Relevant I have reviewed the following items cosmo (where applicable) has been applied. Labs Laboratory Tests Test 12/22/18 12:14 12/22/18 12:27 12/22/18 16:53 12/22/18 21:10 Glucose (Fingerstick) 97 mg/dL (70-99) 88 mg/dL (70-99) 117 mg/dL (70-99) 133 mg/dL (70-99) Test 12/23/18 07:22 12/23/18 10:48 12/23/18 16:49 12/23/18 19:51 Glucose (Fingerstick) 120 mg/dL (70-99) 213 mg/dL (70-99) 241 mg/dL (70-99) 212 mg/dL (70-99) Test 12/24/18 07:17 Glucose (Fingerstick) 131 mg/dL (70-99) Laboratory Tests Test 12/23/18 16:49 12/23/18 19:51 12/24/18 07:17 Glucose (Fingerstick) 241 mg/dL (70-99) 212 mg/dL (70-99) 131 mg/dL (70-99) Microbiology 12/16/18 Blood Culture - Final, Complete NO GROWTH AFTER 5 DAYS Medications Current Medications Albuterol Sulfate (Ventolin Neb Soln) 10 mg 1X ONCE CONT NEB Last administered on 12/16/18 13:39; Start 12/16/18 at 13:30; Stop 12/16/18 at 13:31; Status DC Acetaminophen (Tylenol) 1,000 mg 1X ONCE PO Last administered on 12/16/18 13: 52; Start 12/16/18 at 13:45; Stop 12/16/18 at 13:47; Status DC Levofloxacin/ Dextrose (Levaquin Per Pharmacy) 1 each PRN DAILY PRN MC SEE COMMENTS; Start 12/16/18 at 15:00; Stop 12/23/18 at 09:04; Status DC Levofloxacin/ Dextrose 100 ml @ 100 mls/hr Q48H IV Last administered on at 15:23; Start 12/16/18 at 15:00; Stop 12/23/18 at 09:04; Status DC Ondansetron HCl (Zofran) 4 mg PRN Q8HRS PRN IV NAUSEA/VOMITING; Start 12/16/18 at 15:00; Stop 12/17/18 at 14:59; Status DC Fentanyl Citrate (Fentanyl 2ml Vial) 50 mcg PRN Q1HR PRN IV PAIN; Start at 15:00; Stop 12/17/18 at 14:59; Status DC Albuterol/ Ipratropium (Duoneb) 3 ml RTQID NEB Last administered on 12/16/18at 15 :05; Start 12/16/18 at 16:00; Stop 12/16/18 at 16:40; Status DC Acetaminophen (Tylenol) 650 mg PRN Q6HRS PRN PO MILD PAIN Last administered on 12/23/18at 09:54; Start 12/16/18 at 16:30 Amlodipine Besylate (Norvasc) 10 mg DAILY PO Last administered on 12/24/18 08: 44; Start 12/17/18 at 09:00 Aspirin (Children'S Aspirin) 81 mg DAILYWBKFT PO Last administered on 08:44; Start 12/17/18 at 08:00 Cetirizine HCl (ZyrTEC) 10 mg DAILY PO Last administered on 12/24/18at 08:46; Start 12/17/18 at 09:00 Clonidine HCl (Catapres) 0.1 mg BID PO Last administered on 12/24/18 08:46; Start 12/16/18 at 21:00 Gabapentin (Neurontin) 200 mg BID PO Last administered on 12/24/18 08:44; Start 12/16/18 at 21:00 Acetaminophen/ Hydrocodone Bitart (Lortab 5/325) 1 tab PRN Q6HRS PRN PO MODERATE-SEVERE PAIN Last administered on 12/22/18 03:31; Start 12/16/18 at 16:30 Lactobacillus Rhamnosus (Culturelle) 1 cap BID PO Last administered on 08:45; Start 12/16/18 at 21:00 Sevelamer Carbonate (Renvela) 1,600 mg [id number] PO Last administered on 07:10; Start 12/16/18 at 18:00 Albuterol Sulfate (Ventolin Neb Soln) 2.5 mg PRN Q6HRS PRN NEB SHORTNESS OF BREATH; Start 12/16/18 at 16:45 Non-Formulary Medication (Alendronate Sodium ) 70 mg Q2WKS PO ; Start 12/30/18 at 09:00; Status UNV Calcium/Vitamin D (Oscal D 500mg/ 200uts) 1 tab DAILY PO Last administered on 08:46; Start 12/17/18 at 09:00 Fluticasone Propionate (Flonase) 2 spray DAILY NS Last administered on 09:47; Start 12/17/18 at 09:00 Hydralazine HCl (Apresoline) 50 mg TID PO Last administered on 12/23/18 20:26; Start 12/16/18 at 17:00 Insulin Glargine (Lantus) 7 units QHS SQ Last administered on 12/17/18 21:47; Start 12/16/18 at 21:00; Stop 12/18/18 at 07:59; Status DC Albuterol/ Ipratropium (Duoneb) 3 ml RTQID NEB Last administered on 12/24/18 07:41; Start 12/16/18 at 20:00 Labetalol HCl (Trandate) 200 mg DAILY PO Last administered on 3/10/19at 08:45; Start 12/17/18 at 09:00 Pantoprazole Sodium (Protonix) 40 mg DAILYAC PO Last administered on 12/24/18at 08:45; Start 12/17/18 at 07:30; Stop 12/24/18 at 10:14; Status DC Vitamin B Complex/ Vitamin C (Windy-Abby) 1 tab DAILY PO Last administered on 08/04at 08:44; Start 12/17/18 at 09:00 Non-Formulary Medication ([guaiFENesin/ CODEINE 100mg/ 10mg] ) 5 ml PRN Q6HRS PRN PO COUGH; Start 12/16/18 at 16:30; Status UNV Insulin Human Lispro (HumaLOG) 0-5 UNITS TIDWMEALS SQ Last administered on at 17:27; Start 12/16/18 at 17:00 Dextrose (Dextrose 50%-Water Syringe) 12.5 gm PRN Q15MIN PRN IV SEE COMMENTS; Start 12/16/18 at 16:45 Zolpidem Tartrate (Ambien) 5 mg PRN QHS PRN PO INSOMNIA; Start 12/17/18 at 09:30 ; Stop 12/23/18 at 18:24; Status DC Insulin Glargine (Lantus) 8 units QHS SQ Last administered on 12/23/18at 20:31; Start 12/18/18 at 21:00 Sodium Chloride 1,000 ml @ 1,000 mls/hr Q1H PRN IV hypotension; Start 12/18/18 at 08:58; Stop 12/18/18 at 14:57; Status DC Albumin Human 200 ml @ 200 mls/hr 1X PRN PRN IV Hypotension; Start 12/18/18 at 09:00; Stop 12/18/18 at 14:59; Status DC Sodium Chloride 1,000 ml @ 400 mls/hr Q2H30M PRN IV PATENCY; Start 12/18/18 at 08:58; Stop 12/18/18 at 20:57; Status DC Info (PHARMACY MONITORING -- do not chart) 1 each PRN DAILY PRN MC SEE COMMENTS ; Start 12/18/18 at 09:00; Status UNV Info (PHARMACY MONITORING -- do not chart) 1 each PRN DAILY PRN MC SEE COMMENTS ; Start 12/18/18 at 09:00; Status Cancel Darbepoetin Yeison (Aranesp) 60 mcg Mo SQ Last administered on 12/18/18at 20:27; Start 12/18/18 at 21:00 Albuterol/ Ipratropium (Duoneb) 3 ml 1X STAT NEB Last administered on at 08:50; Start 12/19/18 at 08:50; Stop 12/19/18 at 08:58; Status DC Albuterol/ Ipratropium (Duoneb) 3 ml RTQID NEB Last administered on 12/19/18at 12 :38; Start 12/19/18 at 12:00; Stop 12/19/18 at 17:30; Status DC Sodium Chloride 1,000 ml @ 1,000 mls/hr Q1H PRN IV hypotension; Start 12/20/18 at 09:08; Stop 12/20/18 at 15:07; Status DC Sodium Chloride 1,000 ml @ 400 mls/hr Q2H30M PRN IV PATENCY; Start 12/20/18 at 09:08; Stop 12/20/18 at 21:07; Status DC Info (PHARMACY MONITORING -- do not chart) 1 each PRN DAILY PRN MC SEE COMMENTS ; Start 12/20/18 at 09:15 Sodium Chloride 1,000 ml @ 1,000 mls/hr Q1H PRN IV hypotension; Start 12/22/18 at 08:51; Stop 12/22/18 at 14:50; Status DC Sodium Chloride 1,000 ml @ 400 mls/hr Q2H30M PRN IV PATENCY; Start 12/22/18 at 08:51; Stop 12/22/18 at 20:50; Status DC Info (PHARMACY MONITORING -- do not chart) 1 each PRN DAILY PRN MC SEE COMMENTS ; Start 12/22/18 at 09:00; Stop 12/22/18 at 09:00; Status DC Pantoprazole Sodium (Protonix) 40 mg BIDAC PO ; Start 12/24/18 at 16:30 Active Scripts Active [guaiFENesin/CODEINE 100mg/10mg] 5 ML Liquid 5 Ml PO PRN Q6HRS PRN Proair Respiclick (Albuterol Sulfate) 90 Mcg Aer.pow.ba 1 Puff IH PRN Q6HRS PRN Culturelle (Lactobacillus Rhamnosus Gg) 1 Each Cap.sprink 1 Cap PO BID 30 Days Combivent Respimat Inhal (Ipratropium/Albuterol Sulfate) 4 Gm Aer.w.adap 2 Inh IH QID 30 Days Labetalol Hcl 200 Mg Tablet 1 Tab PO DAILY 30 Days Children's Aspirin (Aspirin) 81 Mg Tab.chew 81 Mg PO DAILYWBKFT 30 Days Reported Lantus (Insulin Glargine,Hum.rec.anlog) 100 Unit/1 Ml Vial 7 SQ HS Novolog (Insulin Aspart) 100 Unit/1 Ml Cartridge 100 Unit SQ TIDBFRMEAL Omeprazole 40 Mg Capsule.dr 40 Mg PO DAILY Hydrocodone-Apap 5-325 (Hydrocodone Bit/Acetaminophen) 1 Each Tablet 1 Tab PO Q6HRS PRN Hydralazine Hcl 50 Mg Tablet 1 Tab PO TID Gabapentin (Gabapentin) 100 Mg Capsule 200 Mg PO BID Cetirizine Hcl 10 Mg Tablet 1 Tab PO DAILY Tylenol (Acetaminophen) 325 Mg Tablet 2 Tab PO PRN Q6HRS PRN Clonidine Hcl 0.1 Mg Tablet 0.1 Mg PO BID Alendronate Sodium 70 Mg Tablet 70 Mg PO Q2WKS Flonase Allergy Relief (Fluticasone Propionate) 9.9 Ml [place].susp 2 Sprays NS DAILY Calcium 600 + Vit D 400 Caplet (Calcium Carbonate/Vitamin D3) 1 Each Tablet 1 Each PO DAILY Renvela (Sevelamer Carbonate) 800 Mg Tablet 2 Tab PO [id number] Norvasc (Amlodipine Besylate) 10 Mg Tablet 10 Mg PO DAILY Windy-Abby Rx Tablet (Vit B Cmplx 3/Fa/Vit C/Biotin) 1 Each Tablet 1 Each PO DAILY Vitals/I & O Vital Sign - Last 24 Hours 12/23/18 12/23/18 12/23/18 12/23/18 14:15 15:00 15:47 19:05 Temp 97.5 97.5 Pulse 80 64 Resp 20 B/P (MAP) 149/53 104/40 (61) Pulse Ox 99 100 O2 Delivery Nasal Cannula Nasal Cannula Nasal Cannula O2 Flow Rate 2.0 2.0 2.0 12/23/18 12/23/18 12/23/18 12/23/18 19:42 20:00 20:25 20:26 Temp 97.7 97.7 Pulse 65 Resp 20 B/P (MAP) 108/45 (66) 108/45 108/45 Pulse Ox 99 O2 Delivery Nasal Cannula Nasal Cannula O2 Flow Rate 2.0 2.0 12/23/18 12/24/18 12/24/18 12/24/18 23:19 03:46 07:00 07:43 Temp 98.1 98.4 98.8 98.1 98.4 98.8 Pulse 59 59 68 Resp 18 20 18 B/P (MAP) 111/51 (71) 111/51 (71) 112/45 (67) Pulse Ox 97 100 98 100 O2 Delivery Nasal Cannula Nasal Cannula Nasal Cannula Nasal Cannula O2 Flow Rate 2.0 2.0 12/24/18 12/24/18 12/24/18 08:44 08:45 08:46 Pulse 68 68 68 B/P (MAP) 112/45 112/45 112/45 Intake and Output 12/23/18 12/23/18 12/24/18 15:00 23:00 07:00 Intake Total 210 ml 190 ml 150 ml Balance 210 ml 190 ml 150 ml ARELI MATIAS MD Dec 24, 2018 11:25
--- NOTE | 2018-12-24 12:36 | NUR ---
Dr Banuelos would like this pt to be discharged home with O2 as soon as possible, however per Nazia the Nursing Family Practitioner, she has tried to contact [facility] multiple times this weekend and no one has called back pertaining to getting a tank for the patient to take home with her. So at this moment we cannot discharge pt home. James Betancur RN
[2018-12-24 15:00] VITALS: BP 102/39
[2018-12-24 19:12] VITALS: BP 96/40
[2018-12-24] MEDS: HYDROcodone/APAP 5/325MG 1 TAB TABLET PO PRN (20:56)
[2018-12-24] MEDS: INSULIN GLARGINE 300 UNITS/3 ML INSULN.PEN. SQ SCH (21:03)
[2018-12-24 23:41] VITALS: BP 109/43
[2018-12-25 03:08] VITALS: BP 122/48
[2018-12-25 07:00] VITALS: BP 126/50
[2018-12-25] MEDS: IPRATRPIUM/ALBUTEROL 0.5/2.5MG 3 ML NEBU. NEB SCH ×4 (07:52→20:13)
--- NOTE | 2018-12-25 07:58 | NUR ---
This pt did not discharge yesterday due to the O2 not being okayd by the O2 company and the insurance. we were informed that they would take care of getting this handled on Tuesday when the person that took care of this was going to be in. James Betancur RN
[2018-12-25] MEDS: INSULIN LISPRO 300 UNITS/3 ML INSULN.PEN. SQ SCH ×3 (08:00→17:00)
[2018-12-25] MEDS: FLUTICASONE 50MCG/NASAL SPRAY 16GM BOTTLE. NS SCH (09:00)
[2018-12-25] MEDS: amLODIPine BESYLATE 10 MG TABLET PO SCH (09:16)
[2018-12-25] MEDS: CALCIUM CARB/VIT D3 500/200 TABLET. PO SCH (09:17)
[2018-12-25] MEDS: FOLIC/VIT B COMP W-C (RENAL) TABLET. PO SCH (09:17)
[2018-12-25] MEDS: cloNIDine HCL 0.1 MG TABLET PO SCH ×2 (09:17→21:03)
[2018-12-25] MEDS: GABAPENTIN 100 MG CAPSULE. PO SCH ×2 (09:17→21:02)
[2018-12-25] MEDS: SEVELAMER CARBONATE 800 MG TABLET. PO SCH ×3 (09:18→18:34)
[2018-12-25] MEDS: PANTOPRAZOLE 40 MG TABLET.DR. PO SCH ×2 (09:18→18:34)
[2018-12-25] MEDS: LACTOBACILLUS RHAMNOSUS GG 1 CAPSULE. PO SCH ×2 (09:18→21:03)
[2018-12-25] MEDS: ASPIRIN CHEWABLE 81 MG TABLET. PO SCH (09:18)
[2018-12-25] MEDS: CETIRIZINE HCL 10 MG TABLET. PO SCH (09:19)
[2018-12-25] MEDS: LABETALOL HCL 200 MG TABLET PO SCH (09:19)
--- NOTE | 2018-12-25 09:52 | PDOC ---
PROGRESS NOTES Subjective Subjective Patient without complaint. Objective Objective Vital Signs Date Time Temp Pulse Resp B/P (MAP) Pulse Ox O2 Delivery O2 Flow Rate FiO2 12/25/18 09:19 72 126/50 12/25/18 07:52 98 Nasal Cannula 2.0 12/25/18 07:00 98.1 18 98.1 Intake and Output 12/25/18 07:00 Intake Total 400 ml Balance 400 ml Intake Oral 400 ml Physical Exam Abdomen: Normal bowel sounds, Soft, No tenderness Heart: Regular rate Extremities: No edema General: Alert, Oriented X3, No acute distress Lungs: Other (fine crackles in bases otherwise CTA) Plan Plan of Care 1. Atypical pneumonia with hypoxia - home today with O2. 2. ESRD - stable, dialysis today. 3. DM2 - well controlled with insulins. 4. HTN - controlled, continue present medication. Comment Review of Relevant I have reviewed the following items cosmo (where applicable) has been applied. Labs Laboratory Tests Test 12/23/18 10:48 12/23/18 16:49 12/23/18 19:51 12/24/18 07:17 Glucose (Fingerstick) 213 mg/dL (70-99) 241 mg/dL (70-99) 212 mg/dL (70-99) 131 mg/dL (70-99) Test 12/24/18 11:04 12/24/18 16:47 12/24/18 19:56 12/25/18 07:17 Glucose (Fingerstick) 156 mg/dL (70-99) 176 mg/dL (70-99) 195 mg/dL (70-99) 137 mg/dL (70-99) Laboratory Tests Test 12/24/18 11:04 12/24/18 16:47 12/24/18 19:56 12/25/18 07:17 Glucose (Fingerstick) 156 mg/dL (70-99) 176 mg/dL (70-99) 195 mg/dL (70-99) 137 mg/dL (70-99) Microbiology 12/16/18 Blood Culture - Final, Complete NO GROWTH AFTER 5 DAYS Medications Current Medications Albuterol Sulfate (Ventolin Neb Soln) 10 mg 1X ONCE CONT NEB Last administered on 12/16/18at 13:39; Start 12/16/18 at 13:30; Stop 12/16/18 at 13:31; Status DC Acetaminophen (Tylenol) 1,000 mg 1X ONCE PO Last administered on 12/16/18at 13: 52; Start 12/16/18 at 13:45; Stop 12/16/18 at 13:47; Status DC Levofloxacin/ Dextrose (Levaquin Per Pharmacy) 1 each PRN DAILY PRN MC SEE COMMENTS; Start 12/16/18 at 15:00; Stop 12/23/18 at 09:04; Status DC Levofloxacin/ Dextrose 100 ml @ 100 mls/hr Q48H IV Last administered on at 15:23; Start 12/16/18 at 15:00; Stop 12/23/18 at 09:04; Status DC Ondansetron HCl (Zofran) 4 mg PRN Q8HRS PRN IV NAUSEA/VOMITING; Start 12/16/18 at 15:00; Stop 12/17/18 at 14:59; Status DC Fentanyl Citrate (Fentanyl 2ml Vial) 50 mcg PRN Q1HR PRN IV PAIN; Start at 15:00; Stop 12/17/18 at 14:59; Status DC Albuterol/ Ipratropium (Duoneb) 3 ml RTQID NEB Last administered on 12/16/18at 15 :05; Start 12/16/18 at 16:00; Stop 12/16/18 at 16:40; Status DC Acetaminophen (Tylenol) 650 mg PRN Q6HRS PRN PO MILD PAIN Last administered on 12/23/18at 09:54; Start 12/16/18 at 16:30 Amlodipine Besylate (Norvasc) 10 mg DAILY PO Last administered on 12/25/18at 09: 16; Start 12/17/18 at 09:00 Aspirin (Children'S Aspirin) 81 mg DAILYWBKFT PO Last administered on 09:18; Start 12/17/18 at 08:00 Cetirizine HCl (ZyrTEC) 10 mg DAILY PO Last administered on 12/25/18 09:19; Start 12/17/18 at 09:00 Clonidine HCl (Catapres) 0.1 mg BID PO Last administered on 12/25/18 09:17; Start 12/16/18 at 21:00 Gabapentin (Neurontin) 200 mg BID PO Last administered on 12/25/18 09:17; Start 12/16/18 at 21:00 Acetaminophen/ Hydrocodone Bitart (Lortab 5/325) 1 tab PRN Q6HRS PRN PO MODERATE-SEVERE PAIN Last administered on 12/24/18 20:56; Start 12/16/18 at 16: 30 Lactobacillus Rhamnosus (Culturelle) 1 cap BID PO Last administered on 09:18; Start 12/16/18 at 21:00 Sevelamer Carbonate (Renvela) 1,600 mg [id number] PO Last administered on 09:18; Start 12/16/18 at 18:00 Albuterol Sulfate (Ventolin Neb Soln) 2.5 mg PRN Q6HRS PRN NEB SHORTNESS OF BREATH; Start 12/16/18 at 16:45 Non-Formulary Medication (Alendronate Sodium ) 70 mg Q2WKS PO ; Start 12/30/18 at 09:00; Status UNV Calcium/Vitamin D (Oscal D 500mg/ 200uts) 1 tab DAILY PO Last administered on 09:17; Start 12/17/18 at 09:00 Fluticasone Propionate (Flonase) 2 spray DAILY NS Last administered on 09:47; Start 12/17/18 at 09:00 Hydralazine HCl (Apresoline) 50 mg TID PO Last administered on 12/25/18 09:18 ; Start 12/16/18 at 17:00 Insulin Glargine (Lantus) 7 units QHS SQ Last administered on 12/17/18 21:47; Start 12/16/18 at 21:00; Stop 12/18/18 at 07:59; Status DC Albuterol/ Ipratropium (Duoneb) 3 ml RTQID NEB Last administered on 12/25/18 07:52; Start 12/16/18 at 20:00 Labetalol HCl (Trandate) 200 mg DAILY PO Last administered on 12/25/18 09:19; Start 12/17/18 at 09:00 Pantoprazole Sodium (Protonix) 40 mg DAILYAC PO Last administered on 12/24/18 08:45; Start 12/17/18 at 07:30; Stop 12/24/18 at 10:14; Status DC Vitamin B Complex/ Vitamin C (Windy-Abby) 1 tab DAILY PO Last administered on 09/04at 09:17; Start 12/17/18 at 09:00 Non-Formulary Medication ([guaiFENesin/ CODEINE 100mg/ 10mg] ) 5 ml PRN Q6HRS PRN PO COUGH; Start 12/16/18 at 16:30; Status UNV Insulin Human Lispro (HumaLOG) 0-5 UNITS TIDWMEALS SQ Last administered on 12/24at 16:58; Start 12/16/18 at 17:00 Dextrose (Dextrose 50%-Water Syringe) 12.5 gm PRN Q15MIN PRN IV SEE COMMENTS; Start 12/16/18 at 16:45 Zolpidem Tartrate (Ambien) 5 mg PRN QHS PRN PO INSOMNIA; Start 12/17/18 at 09:30 ; Stop 12/23/18 at 18:24; Status DC Insulin Glargine (Lantus) 8 units QHS SQ Last administered on 12/24/18at 21:03; Start 12/18/18 at 21:00 Sodium Chloride 1,000 ml @ 1,000 mls/hr Q1H PRN IV hypotension; Start 12/18/18 at 08:58; Stop 12/18/18 at 14:57; Status DC Albumin Human 200 ml @ 200 mls/hr 1X PRN PRN IV Hypotension; Start 12/18/18 at 09:00; Stop 12/18/18 at 14:59; Status DC Sodium Chloride 1,000 ml @ 400 mls/hr Q2H30M PRN IV PATENCY; Start 12/18/18 at 08:58; Stop 12/18/18 at 20:57; Status DC Info (PHARMACY MONITORING -- do not chart) 1 each PRN DAILY PRN MC SEE COMMENTS ; Start 12/18/18 at 09:00; Status UNV Info (PHARMACY MONITORING -- do not chart) 1 each PRN DAILY PRN MC SEE COMMENTS ; Start 12/18/18 at 09:00; Status Cancel Darbepoetin Yeison (Aranesp) 60 mcg Mo SQ Last administered on 12/18/18at 20:27; Start 12/18/18 at 21:00 Albuterol/ Ipratropium (Duoneb) 3 ml 1X STAT NEB Last administered on at 08:50; Start 12/19/18 at 08:50; Stop 12/19/18 at 08:58; Status DC Albuterol/ Ipratropium (Duoneb) 3 ml RTQID NEB Last administered on 12/19/18at 12 :38; Start 12/19/18 at 12:00; Stop 12/19/18 at 17:30; Status DC Sodium Chloride 1,000 ml @ 1,000 mls/hr Q1H PRN IV hypotension; Start 12/20/18 at 09:08; Stop 12/20/18 at 15:07; Status DC Sodium Chloride 1,000 ml @ 400 mls/hr Q2H30M PRN IV PATENCY; Start 12/20/18 at 09:08; Stop 12/20/18 at 21:07; Status DC Info (PHARMACY MONITORING -- do not chart) 1 each PRN DAILY PRN MC SEE COMMENTS ; Start 12/20/18 at 09:15 Sodium Chloride 1,000 ml @ 1,000 mls/hr Q1H PRN IV hypotension; Start 12/22/18 at 08:51; Stop 12/22/18 at 14:50; Status DC Sodium Chloride 1,000 ml @ 400 mls/hr Q2H30M PRN IV PATENCY; Start 12/22/18 at 08:51; Stop 12/22/18 at 20:50; Status DC Info (PHARMACY MONITORING -- do not chart) 1 each PRN DAILY PRN MC SEE COMMENTS ; Start 12/22/18 at 09:00; Stop 12/22/18 at 09:00; Status DC Pantoprazole Sodium (Protonix) 40 mg BIDAC PO Last administered on 12/25/18at 09 :18; Start 12/24/18 at 16:30 Active Scripts Active [guaiFENesin/CODEINE 100mg/10mg] 5 ML Liquid 5 Ml PO PRN Q6HRS PRN Proair Respiclick (Albuterol Sulfate) 90 Mcg Aer.pow.ba 1 Puff IH PRN Q6HRS PRN Culturelle (Lactobacillus Rhamnosus Gg) 1 Each Cap.sprink 1 Cap PO BID 30 Days Combivent Respimat Inhal (Ipratropium/Albuterol Sulfate) 4 Gm Aer.w.adap 2 Inh IH QID 30 Days Labetalol Hcl 200 Mg Tablet 1 Tab PO DAILY 30 Days Children's Aspirin (Aspirin) 81 Mg Tab.chew 81 Mg PO DAILYWBKFT 30 Days Reported Lantus (Insulin Glargine,Hum.rec.anlog) 100 Unit/1 Ml Vial 7 SQ HS Novolog (Insulin Aspart) 100 Unit/1 Ml Cartridge 100 Unit SQ TIDBFRMEAL Omeprazole 40 Mg Capsule.dr 40 Mg PO DAILY Hydrocodone-Apap 5-325 (Hydrocodone Bit/Acetaminophen) 1 Each Tablet 1 Tab PO Q6HRS PRN Hydralazine Hcl 50 Mg Tablet 1 Tab PO TID Gabapentin (Gabapentin) 100 Mg Capsule 200 Mg PO BID Cetirizine Hcl 10 Mg Tablet 1 Tab PO DAILY Tylenol (Acetaminophen) 325 Mg Tablet 2 Tab PO PRN Q6HRS PRN Clonidine Hcl 0.1 Mg Tablet 0.1 Mg PO BID Alendronate Sodium 70 Mg Tablet 70 Mg PO Q2WKS Flonase Allergy Relief (Fluticasone Propionate) 9.9 Ml [place].susp 2 Sprays NS DAILY Calcium 600 + Vit D 400 Caplet (Calcium Carbonate/Vitamin D3) 1 Each Tablet 1 Each PO DAILY Renvela (Sevelamer Carbonate) 800 Mg Tablet 2 Tab PO [id number] Norvasc (Amlodipine Besylate) 10 Mg Tablet 10 Mg PO DAILY Windy-Abby Rx Tablet (Vit B Cmplx 3/Fa/Vit C/Biotin) 1 Each Tablet 1 Each PO DAILY Vitals/I & O Vital Sign - Last 24 Hours 12/24/18 12/24/18 12/24/18 12/24/18 11:00 13:48 15:00 19:12 Temp 97.8 97.6 97.9 97.8 97.6 97.9 Pulse 70 70 71 70 Resp 18 18 18 B/P (MAP) 127/36 (66) 127/36 102/39 (60) 96/40 (58) Pulse Ox 100 98 100 O2 Delivery Nasal Cannula Nasal Cannula Nasal Cannula O2 Flow Rate 2.0 2.0 2.0 12/24/18 12/24/18 12/24/18 12/24/18 20:00 20:56 21:04 21:56 Pulse Ox 100 O2 Delivery Nasal Cannula Room Air Nasal Cannula Room Air O2 Flow Rate 2.0 2.0 12/24/18 12/25/18 12/25/18 12/25/18 23:41 03:08 07:00 07:52 Temp 98.3 97.6 98.1 98.3 97.6 98.1 Pulse 65 74 72 Resp 19 16 18 B/P (MAP) 109/43 (65) 122/48 (72) 126/50 (75) Pulse Ox 100 99 98 98 O2 Delivery Nasal Cannula Nasal Cannula Nasal Cannula Nasal Cannula O2 Flow Rate 2.0 2.0 2.0 2.0 12/25/18 12/25/18 12/25/18 12/25/18 09:16 09:17 09:18 09:19 Pulse 72 72 72 72 B/P (MAP) 126/50 126/50 126/50 126/50 Intake and Output 12/24/18 12/24/18 12/25/18 15:00 23:00 07:00 Intake Total 0 ml 400 ml Balance 0 ml 400 ml ARELI MATIAS MD Dec 25, 2018 09:52
--- NOTE | 2018-12-25 09:56 | NUR ---
SW notified pt did not dc over the weekend as 02 was not set up due to some difficulties. SW unable to locate 02 desaturation study at this time. SW phoned and faxed orders to [facility] (they take pt's insurance) with RT notes indicating pt 02 went down to 86% on room air. Awaiting to hear from [facility] if orders are approved. Discussed with Physician.
[2018-12-25 11:00] VITALS: BP 118/46
--- NOTE | 2018-12-25 11:01 | NUR ---
KENNEDY following ptJillian Bose from [facility] reported order is approved but testing needs to be done at least prior 48 hours of discharge and RT notes were from . RN to assess how pt does with out and SW will fax updated assessment. Desaturation study only will qualify pt for night time. KENNEDY provided pt with 02 tank to take home. KENNEDY also informed pt to call [facility] on the way home so they can provide her with concentrator and equipment. Discussed with RN. Addendum: 12/25/18 at 1252 by ADINA BENAVIDES KENNEDY faxed updated notes regarding to [facility]. Pt will dc home after dialysis.
--- NOTE | 2018-12-25 11:24 | NUR ---
Took pt off of oxygen for 5 min to check her sats. At 3 mins she was at 88%, at 5 mins she was at 85% on room air. Put pt back on 2 L NC. James Betancur RN
[2018-12-25] MEDS ORDERED: IV NORMAL SALINE 1000ML BAG 1,000 ML IV PRN ×2 (12:13)
[2018-12-25] MEDS ORDERED: ALBUMIN HUMAN 25% 200 ML IV PRN (12:15)
[2018-12-25] MEDS ORDERED: DIALYSIS PATIENT. MC PRN ×2 (12:15)
--- NOTE | 2018-12-25 14:29 | PDOC ---
PULMONARY PROGRESS NOTES Subjective sob better, has cough, has stomach pain, is tired Vitals Vital Signs Date Time Temp Pulse Resp B/P (MAP) Pulse Ox O2 Delivery O2 Flow Rate FiO2 12/25/18 11:40 96 Nasal Cannula 1.0 12/25/18 11:00 97.6 74 18 118/46 (70) 97.6 ROS: No Nausea, No Chest Pain, No Abdominal Pain, No Increase Cough General: Alert, No acute distress HEENT: Other (nc at perrl) Lungs: Crackles Cardiovascular: S1, S2 Abdomen: Soft, Non-tender Neuro Exam: Alert Extremities: No Edema Skin: Warm Labs Laboratory Tests Test 12/23/18 16:49 12/23/18 19:51 12/24/18 07:17 12/24/18 11:04 Glucose (Fingerstick) 241 mg/dL (70-99) 212 mg/dL (70-99) 131 mg/dL (70-99) 156 mg/dL (70-99) Test 12/24/18 16:47 12/24/18 19:56 12/25/18 07:17 12/25/18 12:14 Glucose (Fingerstick) 176 mg/dL (70-99) 195 mg/dL (70-99) 137 mg/dL (70-99) 165 mg/dL (70-99) Laboratory Tests Test 12/24/18 16:47 12/24/18 19:56 12/25/18 07:17 12/25/18 12:14 Glucose (Fingerstick) 176 mg/dL (70-99) 195 mg/dL (70-99) 137 mg/dL (70-99) 165 mg/dL (70-99) Medications Active Scripts Medications Dose Route/Sig Max Daily Dose Days Date Category Lantus (Insulin Glargine,Hum.rec.anlog) 100 Unit/1 Ml Vial 7 SQ HS 12/05/18 Reported Novolog (Insulin Aspart) 100 Unit/1 Ml Cartridge 100 Unit SQ TIDBFRMEAL 12/05/18 Reported [guaiFENesin/CODEINE 100mg/10mg] 5 ML Liquid 5 Ml PO PRN Q6HRS PRN 11/10/18 Rx Proair Respiclick (Albuterol Sulfate) 90 Mcg Aer.pow.ba 1 Puff IH PRN Q6HRS PRN 04/10/18 Rx Culturelle (Lactobacillus Rhamnosus Gg) 1 Each Cap.sprink 1 Cap PO BID 30 12/15/17 Rx Combivent Respimat Inhal (Ipratropium/Albuterol Sulfate) 4 Gm Aer.w.adap 2 Inh IH QID 30 09/02/17 Rx Labetalol Hcl 200 Mg Tablet 1 Tab PO DAILY 30 09/02/17 Rx Omeprazole 40 Mg Capsule.dr 40 Mg PO DAILY 09/01/17 Reported Hydrocodone-Apap 5-325 (Hydrocodone Bit/Acetaminophen) 1 Each Tablet 1 Tab PO Q6HRS PRN 09/01/17 Reported Hydralazine Hcl 50 Mg Tablet 1 Tab PO TID 04/08/17 Reported Gabapentin (Gabapentin) 100 Mg Capsule 200 Mg PO BID 04/08/17 Reported Cetirizine Hcl 10 Mg Tablet 1 Tab PO DAILY 10/29/16 Reported Tylenol (Acetaminophen) 325 Mg Tablet 2 Tab PO PRN Q6HRS PRN 10/29/16 Reported Clonidine Hcl 0.1 Mg Tablet 0.1 Mg PO BID 09/17/16 Reported Alendronate Sodium 70 Mg Tablet 70 Mg PO Q2WKS 09/17/16 Reported Flonase Allergy Relief (Fluticasone Propionate) 9.9 Ml [place].susp 2 Sprays NS DAILY 09/17/16 Reported Children's Aspirin (Aspirin) 81 Mg Tab.chew 81 Mg PO DAILYWBKFT 30 11/04/15 Rx Calcium 600 + Vit D 400 Caplet (Calcium Carbonate/Vitamin D3) 1 Each Tablet 1 Each PO DAILY 10/24/15 Reported Renvela (Sevelamer Carbonate) 800 Mg Tablet 2 Tab PO LPS112 12/21/14 Reported Norvasc (Amlodipine Besylate) 10 Mg Tablet 10 Mg PO DAILY 11/11/13 Reported Windy-Abby Rx Tablet (Vit B Cmplx 3/Fa/Vit C/Biotin) 1 Each Tablet 1 Each PO DAILY 11/11/13 Reported Impression . IMPRESSION: 1. Fever, suspect possibly secondary to a viral despite negative influenza screen. resolved 2. Abnormal CT chest revealing chronic changes in the faces. 3. End-stage renal disease, on hemodialysis. 4. Hypertension. 5. Type 2 diabetes. 6. HYPOXEMIA Plan . 02 titration qualifies for Oxygen, O2 saturation on room air was 85%, unable to preform 6min walk, recheck RA pulse ox at the time of dc monitor off abx BD ok with dc post HD discussed w pt YONG WAGNER MD Dec 25, 2018 14:29
[2018-12-25 14:40] LABS: CALCIUM 8.9 mg/dL (8.5-10.1); CREATININE 8.3 mg/dL (0.6-1.0); GFR 4.8; POTASSIUM 4.8 mmol/L (3.5-5.1)
--- NOTE | 2018-12-25 15:53 | PDOC ---
Renal-Progress Notes Subjective Notes Notes BETTER History of Present Illness Hx of present illness IMPROVING Vitals Vitals Vital Signs Date Time Temp Pulse Resp B/P (MAP) Pulse Ox O2 Delivery O2 Flow Rate FiO2 12/25/18 14:00 74 118/46 12/25/18 11:40 96 Nasal Cannula 1.0 12/25/18 11:00 97.6 18 97.6 Weight Weight [ ] I.O. Intake and Output Intake and Output 12/25/18 06:59 Intake Total 400 ml Balance 400 ml Intake Oral 400 ml Labs Labs Laboratory Tests Test 12/24/18 16:47 12/24/18 19:56 12/25/18 07:17 12/25/18 12:14 Glucose (Fingerstick) 176 mg/dL (70-99) 195 mg/dL (70-99) 137 mg/dL (70-99) 165 mg/dL (70-99) Test 12/25/18 13:55 Sodium Level 139 mmol/L (136-145) Potassium Level 4.8 mmol/L (3.5-5.1) Chloride Level 100 mmol/L (98-107) Carbon Dioxide Level 29 mmol/L (21-32) Anion Gap 10 (6-14) Blood Urea Nitrogen 56 mg/dL (7-20) Creatinine 8.3 mg/dL (0.6-1.0) Estimated GFR (Cockcroft-Gault) 4.8 Glucose Level 164 mg/dL (70-99) Calcium Level 8.9 mg/dL (8.5-10.1) Micro Micro Microbiology 12/16/18 Blood Culture - Final, Complete NO GROWTH AFTER 5 DAYS Review of Systems Constitutional: yes: weakness, alert, oriented Eyes: Yes: no symptom reported Pulmonary: Yes dyspnea Cardiovascular: Yes no symptom reported Gastrointestional: Yes: no symptom reported Genitourinary: Yes: no symptom reported Skin: Yes no symptom reported Endocrine: Yes: no symptom reported Physical Exam General Appearance: no apparent distress Skin: warm Respiratory: tachypnea Heart: S1S2 Abdomen: soft, bowel sounds present Genitourinary: bladder flat Neurology: alert Musculoskeletal: Other Assessment Assessment IMP PNEUMONIA ANEMIA ESRD DM II HTN PLAN HD TODAY UF TO DW ABX WILL FOLLOW DAKOTA ARIAS MD Dec 25, 2018 15:53
[2018-12-25] MEDS: HYDROcodone/APAP 5/325MG 1 TAB TABLET PO PRN (16:26)
[2018-12-25 19:30] VITALS: BP 116/48
[2018-12-25 21:03] VITALS: BP 116/48
[2018-12-25] MEDS: DARBEPOETIN ALFA 60 MCG/0.3 ML DISP.SYRIN. SQ SCH (21:03)
[2018-12-25] MEDS: INSULIN GLARGINE 300 UNITS/3 ML INSULN.PEN. SQ SCH (21:08)
--- NOTE | 2018-12-26 15:48 | RESP ---
DATE OF SERVICE: 12/22/2018 NOCTURNAL OXIMETRY STUDY. This study was initially performed on room air, but the patient desaturated to 62% at 2252. As a result, the patient was placed on 1 liter and rest of the study was performed on 1 liter. The patient's mean oxygen saturation of 93%, with the lowest of 58%. Only 1.2% of time oxygen saturation remained less than 90%. IMPRESSION: Nocturnal hypoxia while the patient slept on room air, but hypoxia corrected with 1 liter of oxygen rest of the night. If clinical suspicion for sleep apnea is high, then consider doing full polysomnogram. YONG WAGNER MD DR: ANNY/ronaldo JOB#: [id number] / [id number] NISHA
[2018-12-30] MEDS ORDERED: NON FORMULARY ITEM (Alendronate Sodium 70 MG) PO SCH (09:00)
[2019-01-09] MEDS ORDERED: INSU100C4 SQ (08:39)
[2019-01-12] MEDS ORDERED: INSU100V8 SQ (08:57)
[2019-01-12] MEDS ORDERED: INSU100C4 SQ (08:57)
[2019-01-12] MEDS ORDERED: PRED20TA PO (08:57)
[2019-02-23] MEDS ORDERED: INSU100V8 SQ (08:47)
== END 2018-12-25 21:38 | disposition home or self-care (01) | DRG 871 ==
LOC: ER 13:15 → 6 SOUTH 14:41
PROVIDERS: ADMIT Family Medicine; ATTEND Family Medicine
PROC: 5A1D70Z Performance of Urinary Filtration, Intermittent, Less than 6 Hours Per Day (ICD-10-PCS; principal; 2018-12-18)
PROC: 5A1D70Z Performance of Urinary Filtration, Intermittent, Less than 6 Hours Per Day (ICD-10-PCS; 2018-12-20)
PROC: 5A1D70Z Performance of Urinary Filtration, Intermittent, Less than 6 Hours Per Day (ICD-10-PCS; 2018-12-22)
PROC: 5A1D70Z Performance of Urinary Filtration, Intermittent, Less than 6 Hours Per Day (ICD-10-PCS; 2018-12-25)
DX: A41.9 Sepsis, unspecified organism (principal); J18.9 Pneumonia, unspecified organism; N18.6 End stage renal disease; I13.2 Hypertensive heart and chronic kidney disease with heart failure and with stage 5 chronic kidney disease, or end stage renal disease; I42.0 Dilated cardiomyopathy; N25.81 Secondary hyperparathyroidism of renal origin; I50.9 Heart failure, unspecified; E11.21 Type 2 diabetes mellitus with diabetic nephropathy; E11.22 Type 2 diabetes mellitus with diabetic chronic kidney disease; E78.5 Hyperlipidemia, unspecified; E11.42 Type 2 diabetes mellitus with diabetic polyneuropathy; E21.3 Hyperparathyroidism, unspecified; K21.9 Gastro-esophageal reflux disease without esophagitis; K59.00 Constipation, unspecified; R09.02 Hypoxemia; F32.9 Major depressive disorder, single episode, unspecified; D63.1 Anemia in chronic kidney disease; I25.10 Atherosclerotic heart disease of native coronary artery without angina pectoris; J30.9 Allergic rhinitis, unspecified; Z79.899 Other long term (current) drug therapy; Z87.440 Personal history of urinary (tract) infections; Z79.4 Long term (current) use of insulin; Z82.3 Family history of stroke; Z82.49 Family history of ischemic heart disease and other diseases of the circulatory system; Z83.3 Family history of diabetes mellitus; Z86.73 Personal history of transient ischemic attack (TIA), and cerebral infarction without residual deficits; Z87.01 Personal history of pneumonia (recurrent); Z90.49 Acquired absence of other specified parts of digestive tract; Z90.710 Acquired absence of both cervix and uterus; Z99.2 Dependence on renal dialysis
CPT/HCPCS: 36415; 36600; 71045; 71250; 74018; 80048; 80053; 82805; 82962; 83605; 84145; 85007; 85025; 87040; 87804; 93005; 94640; 94644; 94760; 94799; J0881; J1815; J1956; J7613; J7620; 97110; 97530; 97535; 99285-25

== ENCOUNTER 2019-01-08 20:51 | Inpatient (IN) | payer OTHER ==
[~2019-01-08] VITALS: Ht 157.5 cm; Wt 57.7 kg
--- NOTE | 2019-01-08 21:09 | PHYS DOC ---
Past Medical History Past Medical History: Bronchitis, Diabetes-Type II, Hypertension, Pneumonia, Renal Failure, Other Additional Past Medical Histor: c diff,drop foot syndrome Past Surgical History: , Hysterectomy, Tonsillectomy, Tubal ligation, Other Additional Past Surgical Histo: bilat rotator cuff;dialysis shunt left forearm, L ANKLE ORIF Alcohol Use: None Drug Use: None Adult General Chief Complaint Chief Complaint: SHORTNESS OF BREATH HPI HPI Patient is a 68 year old female who presents with fever and shortness of breath. While at dialysis this morning she was noted to have a fever of 101. She has noted the fever only today along with worsening shortness of breath today worse with exertion. There is a cough. Patient was admitted for pneumonia earlier this month and discharged on December 25, 2018. There has been no new leg swelling. No headache, neck pain, or stiffness. Patient does not make urine. She is on home oxygen therapy which was prescribed during her admission this month.[] Review of Systems Review of Systems Constitutional: Denies chills [] Eyes: Denies change in visual acuity, redness, or eye pain [] HENT: Denies nasal congestion or sore throat [] Respiratory: See history of present illness[] Cardiovascular: No chest pain or palpitations[] GI: Denies abdominal pain, nausea, vomiting, bloody stools or diarrhea [] : Denies dysuria or hematuria [] Musculoskeletal: Denies back pain or joint pain [] Integument: Denies rash or skin lesions [] Neurologic: Denies headache, focal weakness or sensory changes [] Endocrine: Denies polyuria or polydipsia [] All other systems were reviewed and found to be within normal limits, except as documented in this note. Current Medications Current Medications Current Medications Medications (Trade) Dose Ordered Sig/Bill Start Time Stop Time Status Last Admin Dose Admin Albuterol/ Ipratropium (Duoneb) 3 ml 1X ONCE 01/08/19 21:15 01/08/19 21:16 DC 01/08/19 21:28 3 ML Cefepime HCl (Maxipime) 2 gm 1X ONCE 01/08/19 23:00 01/08/19 23:01 Levofloxacin/ Dextrose 150 ml @ 100 mls/hr 1X ONCE 01/08/19 22:45 01/09/19 00:14 Vancomycin HCl (Vanco Per Pharmacy) 1 each 1X STAT 01/08/19 22:39 01/08/19 22:49 DC Vancomycin HCl 1.5 gm/Sodium Chloride 500 ml @ 250 mls/hr 1X ONCE 01/08/19 23:00 01/09/19 00:59 Allergies Allergies Allergies Coded Allergies Type Severity Reaction Last Updated Verified No Known Drug Allergies 12/13/17 No Physical Exam Physical Exam Constitutional: Well developed, well nourished, mildly ill appearing. [] HENT: Normocephalic, atraumatic, bilateral external ears normal, oropharynx moist, no oral exudates, nose normal. [] Eyes: PERRLA, EOMI, conjunctiva normal, no discharge. [] Neck: Normal range of motion, no tenderness, supple, no stridor. [] Cardiovascular:Heart rate regular rhythm, no murmur [] Lungs & Thorax: Bilateral breath sounds clear to auscultation [] Abdomen: Bowel sounds normal, soft, no tenderness, no masses, no pulsatile masses. [] Skin: Warm, dry, no erythema, no rash. [] Back: No tenderness, no CVA tenderness. [] Extremities: No tenderness, no cyanosis, no clubbing, ROM intact, no edema. [] Neurologic: Alert and oriented X 3, normal motor function, normal sensory function, no focal deficits noted. [] Psychologic: Affect normal, judgement normal, mood normal. [] Current Patient Data Vital Signs Vital Signs Date Time Temp Pulse Resp B/P (MAP) Pulse Ox O2 Delivery O2 Flow Rate FiO2 01/08/19 21:34 86 20 183/77 (112) 95 Nasal Cannula 3.0 01/08/19 20:54 99.3 99.3 Lab Values Laboratory Tests Test 01/08/19 21:46 01/08/19 21:55 Influenza Type A Antigen Negative (NEGATIVE) Influenza Type B Antigen Negative (NEGATIVE) White Blood Count 7.2 x10^3/uL (4.0-11.0) Red Blood Count 3.27 x10^6/uL (3.50-5.40) L Hemoglobin 10.4 g/dL (12.0-15.5) L Hematocrit 32.7 % (36.0-47.0) L Mean Corpuscular Volume 100 fL (79-100) Mean Corpuscular Hemoglobin 32 pg (25-35) Mean Corpuscular Hemoglobin Concent 32 g/dL (31-37) Red Cell Distribution Width 17.8 % (11.5-14.5) H Platelet Count 112 x10^3/uL (140-400) L Neutrophils (%) (Auto) 63 % (31-73) Lymphocytes (%) (Auto) 23 % (24-48) L Monocytes (%) (Auto) 12 % (0-9) H Eosinophils (%) (Auto) 2 % (0-3) Basophils (%) (Auto) 1 % (0-3) Neutrophils # (Auto) 4.5 x10^3uL (1.8-7.7) Lymphocytes # (Auto) 1.6 x10^3/uL (1.0-4.8) Monocytes # (Auto) 0.8 x10^3/uL (0.0-1.1) Eosinophils # (Auto) 0.1 x10^3/uL (0.0-0.7) Basophils # (Auto) 0.1 x10^3/uL (0.0-0.2) Prothrombin Time 13.9 SEC (11.7-14.0) Prothrombin Time INR 1.1 (0.8-1.1) Sodium Level 142 mmol/L (136-145) Potassium Level 3.6 mmol/L (3.5-5.1) Chloride Level 103 mmol/L (98-107) Carbon Dioxide Level 32 mmol/L (21-32) Anion Gap 7 (6-14) Blood Urea Nitrogen 19 mg/dL (7-20) Creatinine 3.6 mg/dL (0.6-1.0) H Estimated GFR (Cockcroft-Gault) 12.5 BUN/Creatinine Ratio 5 (6-20) L Glucose Level 117 mg/dL (70-99) H Calcium Level 8.4 mg/dL (8.5-10.1) L Magnesium Level 1.8 mg/dL (1.8-2.4) Total Bilirubin 0.8 mg/dL (0.2-1.0) Aspartate Amino Transferase (AST) 35 U/L (15-37) Alanine Aminotransferase (ALT) 15 U/L (14-59) Alkaline Phosphatase 298 U/L (46-116) H Troponin I Quantitative 0.029 ng/mL (0.000-0.055) OP-Egp-Q-Type Natriuretic Peptide 54595 pg/mL (0-124) H Total Protein 6.4 g/dL (6.4-8.2) Albumin 2.6 g/dL (3.4-5.0) L Albumin/Globulin Ratio 0.7 (1.0-1.7) L Laboratory Tests 01/08/19 21:55 Laboratory Tests 01/08/19 21:55 EKG EKG EKG shows a sinus rhythm at 85 bpm, normal axis, QTC 451 ms, no ST elevations. No acute changes when compared with EKG of 12/16/2018. Interpreted by me at 2120[] Radiology/Procedures Radiology/Procedures Chest x-ray shows a combination failure pattern as well as left-sided/ retrocardiac infiltrate noted better on the lateral imaging which is different than her previous chest x-ray of 12/16/2018[] Course & Med Decision Making Course & Med Decision Making Pertinent Labs and Imaging studies reviewed. (See chart for details) ED course: Patient arrived, was placed in bed, and tolerated exam well. After the return of the laboratory and imaging studies, these were discussed with the patient and family who voiced understanding. Consultation was made with her primary care physician who graciously accepted the patient. It was admitted with IV antibiotics and in improved condition. Pamela decision making: Patient with a febrile illness and imaging infiltrates on her chest x-ray, concern for possibility of healthcare associated pneumonia along with fluid overload as noted by her elevated BNP and chest x-ray findings. [] Dragon Disclaimer Dragon Disclaimer This electronic medical record was generated, in whole or in part, using a voice recognition dictation system. Departure Departure Impression: Primary Impression: HAP (hospital-acquired pneumonia) Additional Impressions: ESRD on dialysis Fluid overload Disposition: HOME, SELF-CARE Admitting Physician: Nicolasa Banuelos Condition: IMPROVED Referrals: NICOLASA BANUELOS MD (PCP) Problem Qualifiers Additional Impressions: Fluid overload Hypervolemia type: unspecified Qualified Codes: E87.70 - Fluid overload, unspecified RUFINA CHOW Jan 08, 2019 21:09
[2019-01-08] MEDS ORDERED: IPRATRPIUM/ALBUTEROL 0.5/2.5MG 3 ML NEBU. NEB ONE (21:15)
[2019-01-08 22:17] LABS: BASO # 0.1 x10^3/uL (0.0-0.2); BASO % 1 % (0-3); EOS # 0.1 x10^3/uL (0.0-0.7); EOS % 2 % (0-3); HEMATOCRIT 32.7 % (36.0-47.0); HEMOGLOBIN 10.4 g/dL (12.0-15.5); LYMPH # 1.6 x10^3/uL (1.0-4.8); LYMPH % 23 % (24-48); MEAN CORPUSCULAR HEMOGLOBIN 32 pg (25-35); MEAN CORPUSCULAR HGB CONC 32 g/dL (31-37); MEAN CORPUSCULAR VOLUME 100 fL (79-100); MONO # 0.8 x10^3/uL (0.0-1.1); MONO % 12 % (0-9); NEUT # 4.5 x10^3uL (1.8-7.7); NEUT % 63 % (31-73); PLATELET COUNT 112 x10^3/uL (140-400); RED BLOOD COUNT 3.27 x10^6/uL (3.50-5.40); RED CELL DISTRIBUTION WIDTH 17.8 % (11.5-14.5); WHITE BLOOD COUNT 7.2 x10^3/uL (4.0-11.0)
[2019-01-08 22:21] LABS: INFLUENZA A PATIENT NEGATIVE (NEGATIVE); INFLUENZA B PATIENT NEGATIVE (NEGATIVE)
[2019-01-08 22:26] LABS: PROTHROMBIN TIME PATIENT 13.9 SEC (11.7-14.0)
[2019-01-08 22:27] LABS: CALCIUM 8.4 mg/dL (8.5-10.1); CREATININE 3.6 mg/dL (0.6-1.0); GFR 12.5; POTASSIUM 3.6 mmol/L (3.5-5.1)
[2019-01-08 22:32] LABS: ALBUMIN 2.6 g/dL (3.4-5.0); ALBUMIN/GLOBULIN RATIO 0.7 (1.0-1.7); MAGNESIUM 1.8 mg/dL (1.8-2.4); TOTAL BILIRUBIN 0.8 mg/dL (0.2-1.0); TOTAL PROTEIN 6.4 g/dL (6.4-8.2)
[2019-01-08] MEDS ORDERED: VANCOMYCIN PER PHARMACY MC STA (22:39)
[2019-01-08] MEDS ORDERED: VANCOMYCIN 1.5 GM in IV NORMAL SALINE 500ML BAG 500 ML IV ONE (23:00)
[2019-01-08] MEDS ORDERED: CEFEPIME HCL IV Push 2 GM VIAL. IVP ONE (23:00)
[2019-01-08] MEDS ORDERED: NITROGLYCERIN SUBLINGUAL 0.4 MG BOTTLE OF 25. SL PRN (23:15)
[2019-01-08] MEDS ORDERED: ONDANSETRON PF 4 MG/2 ML VIAL. IV PRN (23:15)
[2019-01-08] MEDS ORDERED: ACETAMINOPHEN 325 MG TABLET. PO PRN (23:15)
[2019-01-08 23:45] VITALS: BP 158/72
[2019-01-09] VITALS (8 sets, daily range): BP systolic 113–176; BP diastolic 37–97
--- NOTE | 2019-01-09 00:18 | RAD ---
EXAM: PA and Lateral Views of the Chest DATE: 01/08/2019 9:25 PM INDICATION: Shortness of air, CONGESTION, FEVER. HX OF PNEUMONIA COMPARISON: 12/16/2018 12/07/2018 FINDINGS/ IMPRESSION: Heart is mildly enlarged. Aorta is tortuous. Bilateral perihilar airspace opacities with and interstitial prominence and pleural effusions may be seen with pulmonary edema or multifocal consolidation/pneumonia. No pneumothorax. Diffusely decreased bone mineral density. Stable height loss of the lower thoracic/upper lumbar vertebral bodies. Electronically signed by: Julio Cesar Ibarra MD (01/09/2019 12:16 AM) [facility]
[2019-01-09] MEDS: HYDROcodone/APAP 5/325MG 1 TAB TABLET PO PRN ×3 (04:30→18:07)
--- NOTE | 2019-01-09 05:15 | EKG ---
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
[2019-01-09 05:22] LABS: BASO % 1 % (0-3); EOS # 0.1 x10^3/uL (0.0-0.7); EOS % 1 % (0-3); HEMATOCRIT 32.1 % (36.0-47.0); HEMOGLOBIN 10.4 g/dL (12.0-15.5); LYMPH # 1.8 x10^3/uL (1.0-4.8); LYMPH % 23 % (24-48); MEAN CORPUSCULAR HEMOGLOBIN 32 pg (25-35); MEAN CORPUSCULAR HGB CONC 33 g/dL (31-37); MEAN CORPUSCULAR VOLUME 100 fL (79-100); MONO # 0.9 x10^3/uL (0.0-1.1); MONO % 11 % (0-9); NEUT # 5.1 x10^3uL (1.8-7.7); NEUT % 65 % (31-73); PLATELET COUNT 104 x10^3/uL (140-400); RED BLOOD COUNT 3.22 x10^6/uL (3.50-5.40); RED CELL DISTRIBUTION WIDTH 17.8 % (11.5-14.5); WHITE BLOOD COUNT 7.9 x10^3/uL (4.0-11.0)
[2019-01-09 05:43] LABS: ALBUMIN 2.7 g/dL (3.4-5.0); ALBUMIN/GLOBULIN RATIO 0.7 (1.0-1.7); CALCIUM 8.1 mg/dL (8.5-10.1); CREATININE 4.1 mg/dL (0.6-1.0); GFR 10.8; POTASSIUM 3.7 mmol/L (3.5-5.1); TOTAL BILIRUBIN 0.7 mg/dL (0.2-1.0); TOTAL PROTEIN 6.4 g/dL (6.4-8.2)
[2019-01-09] MEDS: IPRATRPIUM/ALBUTEROL 0.5/2.5MG 3 ML NEBU. NEB SCH ×4 (07:16→19:21)
[2019-01-09] MEDS ORDERED: ZOLPIDEM 5 MG TABLET. PO PRN (08:30)
--- NOTE | 2019-01-09 08:38 | NUR ---
SW following pt for anticipated dc needs. Chart reviewed. Pt lives at home with family. Pt dialyzes at [facility] and on M, W, F at 0615. Pt also has home o2 with [employer]. Will continue to assess dc needs.
[2019-01-09] MEDS ORDERED: INSU100C4 SQ (08:39)
--- NOTE | 2019-01-09 08:44 | PDOC ---
PROGRESS NOTES Subjective Subjective Patient reports increased cough and SOA past several days, worse yesterday. Denies chest pain. Objective Objective Vital Signs Date Time Temp Pulse Resp B/P (MAP) Pulse Ox O2 Delivery O2 Flow Rate FiO2 01/09/19 07:15 101.0 92 18 151/50 (83) 94 Nasal Cannula 3.0 101.0 Intake and Output 01/09/19 06:59 Intake Total 240 ml Balance 240 ml Intake Oral 240 ml Physical Exam Abdomen: Normal bowel sounds, Soft, No tenderness Heart: Regular rate Extremities: No edema General: Alert, Oriented X3, No acute distress Lungs: Other (coarse BS diffusely bilaterally, no wheezes heard) Assessment Assessment Problems Medical Problems: (1) HAP (hospital-acquired pneumonia) Status: Acute Plan Plan of Care 1. Acute on chronic respiratory failure with pneumonia and fever - chest exam and CXR with evidence of new/worsening pneumonia. Started on broad-spectrum abx by ER. Will consult Pulmonary to help with further tx. Continue O2 and nebs. 2. ESRD - fluid overload on CXR and BNP significantly elevated. Has not missed dialysis and had her usual tx yesterday. Renal consult pending, may need extra treatment. 3. DM2 - continue insulins. 4. HTN - continue home meds. 5. chronic back pain - stable, continue Loco prn. Comment Review of Relevant I have reviewed the following items cosmo (where applicable) has been applied. Labs Laboratory Tests Test 01/08/19 21:46 01/08/19 21:55 01/09/19 00:01 01/09/19 04:30 Influenza Type A Antigen Negative (NEGATIVE) Influenza Type B Antigen Negative (NEGATIVE) White Blood Count 7.2 x10^3/uL (4.0-11.0) 7.9 x10^3/uL (4.0-11.0) Red Blood Count 3.27 x10^6/uL (3.50-5.40) 3.22 x10^6/uL (3.50-5.40) Hemoglobin 10.4 g/dL (12.0-15.5) 10.4 g/dL (12.0-15.5) Hematocrit 32.7 % (36.0-47.0) 32.1 % (36.0-47.0) Mean Corpuscular Volume 100 fL (79-100) 100 fL (79-100) Mean Corpuscular Hemoglobin 32 pg (25-35) 32 pg (25-35) Mean Corpuscular Hemoglobin Concent 32 g/dL (31-37) 33 g/dL (31-37) Red Cell Distribution Width 17.8 % (11.5-14.5) 17.8 % (11.5-14.5) Platelet Count 112 x10^3/uL (140-400) 104 x10^3/uL (140-400) Neutrophils (%) (Auto) 63 % (31-73) 65 % (31-73) Lymphocytes (%) (Auto) 23 % (24-48) 23 % (24-48) Monocytes (%) (Auto) 12 % (0-9) 11 % (0-9) Eosinophils (%) (Auto) 2 % (0-3) 1 % (0-3) Basophils (%) (Auto) 1 % (0-3) 1 % (0-3) Neutrophils # (Auto) 4.5 x10^3uL (1.8-7.7) 5.1 x10^3uL (1.8-7.7) Lymphocytes # (Auto) 1.6 x10^3/uL (1.0-4.8) 1.8 x10^3/uL (1.0-4.8) Monocytes # (Auto) 0.8 x10^3/uL (0.0-1.1) 0.9 x10^3/uL (0.0-1.1) Eosinophils # (Auto) 0.1 x10^3/uL (0.0-0.7) 0.1 x10^3/uL (0.0-0.7) Basophils # (Auto) 0.1 x10^3/uL (0.0-0.2) 0.0 x10^3/uL (0.0-0.2) Prothrombin Time 13.9 SEC (11.7-14.0) Prothromb Time International Ratio 1.1 (0.8-1.1) Sodium Level 142 mmol/L (136-145) 142 mmol/L (136-145) Potassium Level 3.6 mmol/L (3.5-5.1) 3.7 mmol/L (3.5-5.1) Chloride Level 103 mmol/L (98-107) 103 mmol/L (98-107) Carbon Dioxide Level 32 mmol/L (21-32) 28 mmol/L (21-32) Anion Gap 7 (6-14) 11 (6-14) Blood Urea Nitrogen 19 mg/dL (7-20) 20 mg/dL (7-20) Creatinine 3.6 mg/dL (0.6-1.0) 4.1 mg/dL (0.6-1.0) Estimated GFR (Cockcroft-Gault) 12.5 10.8 BUN/Creatinine Ratio 5 (6-20) 5 (6-20) Glucose Level 117 mg/dL (70-99) 114 mg/dL (70-99) Lactic Acid Level 0.7 mmol/L (0.4-2.0) Calcium Level 8.4 mg/dL (8.5-10.1) 8.1 mg/dL (8.5-10.1) Magnesium Level 1.8 mg/dL (1.8-2.4) Total Bilirubin 0.8 mg/dL (0.2-1.0) 0.7 mg/dL (0.2-1.0) Aspartate Amino Transf (AST/SGOT) 35 U/L (15-37) 32 U/L (15-37) Alanine Aminotransferase (ALT/SGPT) 15 U/L (14-59) 14 U/L (14-59) Alkaline Phosphatase 298 U/L (46-116) 281 U/L (46-116) Troponin I Quantitative 0.029 ng/mL (0.000-0.055) MK-Mjw-Y-Type Natriuretic Peptide 30835 pg/mL (0-124) Total Protein 6.4 g/dL (6.4-8.2) 6.4 g/dL (6.4-8.2) Albumin 2.6 g/dL (3.4-5.0) 2.7 g/dL (3.4-5.0) Albumin/Globulin Ratio 0.7 (1.0-1.7) 0.7 (1.0-1.7) Glucose (Fingerstick) 125 mg/dL (70-99) Test 01/09/19 07:04 Glucose (Fingerstick) 96 mg/dL (70-99) Laboratory Tests Test 01/08/19 21:46 01/08/19 21:55 01/09/19 00:01 01/09/19 04:30 Influenza Type A Antigen Negative (NEGATIVE) Influenza Type B Antigen Negative (NEGATIVE) White Blood Count 7.2 x10^3/uL (4.0-11.0) 7.9 x10^3/uL (4.0-11.0) Red Blood Count 3.27 x10^6/uL (3.50-5.40) 3.22 x10^6/uL (3.50-5.40) Hemoglobin 10.4 g/dL (12.0-15.5) 10.4 g/dL (12.0-15.5) Hematocrit 32.7 % (36.0-47.0) 32.1 % (36.0-47.0) Mean Corpuscular Volume 100 fL (79-100) 100 fL (79-100) Mean Corpuscular Hemoglobin 32 pg (25-35) 32 pg (25-35) Mean Corpuscular Hemoglobin Concent 32 g/dL (31-37) 33 g/dL (31-37) Red Cell Distribution Width 17.8 % (11.5-14.5) 17.8 % (11.5-14.5) Platelet Count 112 x10^3/uL (140-400) 104 x10^3/uL (140-400) Neutrophils (%) (Auto) 63 % (31-73) 65 % (31-73) Lymphocytes (%) (Auto) 23 % (24-48) 23 % (24-48) Monocytes (%) (Auto) 12 % (0-9) 11 % (0-9) Eosinophils (%) (Auto) 2 % (0-3) 1 % (0-3) Basophils (%) (Auto) 1 % (0-3) 1 % (0-3) Neutrophils # (Auto) 4.5 x10^3uL (1.8-7.7) 5.1 x10^3uL (1.8-7.7) Lymphocytes # (Auto) 1.6 x10^3/uL (1.0-4.8) 1.8 x10^3/uL (1.0-4.8) Monocytes # (Auto) 0.8 x10^3/uL (0.0-1.1) 0.9 x10^3/uL (0.0-1.1) Eosinophils # (Auto) 0.1 x10^3/uL (0.0-0.7) 0.1 x10^3/uL (0.0-0.7) Basophils # (Auto) 0.1 x10^3/uL (0.0-0.2) 0.0 x10^3/uL (0.0-0.2) Prothrombin Time 13.9 SEC (11.7-14.0) Prothromb Time International Ratio 1.1 (0.8-1.1) Sodium Level 142 mmol/L (136-145) 142 mmol/L (136-145) Potassium Level 3.6 mmol/L (3.5-5.1) 3.7 mmol/L (3.5-5.1) Chloride Level 103 mmol/L (98-107) 103 mmol/L (98-107) Carbon Dioxide Level 32 mmol/L (21-32) 28 mmol/L (21-32) Anion Gap 7 (6-14) 11 (6-14) Blood Urea Nitrogen 19 mg/dL (7-20) 20 mg/dL (7-20) Creatinine 3.6 mg/dL (0.6-1.0) 4.1 mg/dL (0.6-1.0) Estimated GFR (Cockcroft-Gault) 12.5 10.8 BUN/Creatinine Ratio 5 (6-20) 5 (6-20) Glucose Level 117 mg/dL (70-99) 114 mg/dL (70-99) Lactic Acid Level 0.7 mmol/L (0.4-2.0) Calcium Level 8.4 mg/dL (8.5-10.1) 8.1 mg/dL (8.5-10.1) Magnesium Level 1.8 mg/dL (1.8-2.4) Total Bilirubin 0.8 mg/dL (0.2-1.0) 0.7 mg/dL (0.2-1.0) Aspartate Amino Transf (AST/SGOT) 35 U/L (15-37) 32 U/L (15-37) Alanine Aminotransferase (ALT/SGPT) 15 U/L (14-59) 14 U/L (14-59) Alkaline Phosphatase 298 U/L (46-116) 281 U/L (46-116) Troponin I Quantitative 0.029 ng/mL (0.000-0.055) SH-Imq-A-Type Natriuretic Peptide 02339 pg/mL (0-124) Total Protein 6.4 g/dL (6.4-8.2) 6.4 g/dL (6.4-8.2) Albumin 2.6 g/dL (3.4-5.0) 2.7 g/dL (3.4-5.0) Albumin/Globulin Ratio 0.7 (1.0-1.7) 0.7 (1.0-1.7) Glucose (Fingerstick) 125 mg/dL (70-99) Test 01/09/19 07:04 Glucose (Fingerstick) 96 mg/dL (70-99) Medications Current Medications Albuterol/ Ipratropium (Duoneb) 3 ml 1X ONCE NEB Last administered on at 21:28; Start 01/08/19 at 21:15; Stop 01/08/19 at 21:16; Status DC Cefepime HCl (Maxipime) 2 gm 1X ONCE IVP Last administered on 01/08/19at 23:10 ; Start 01/08/19 at 23:00; Stop 01/08/19 at 23:01; Status DC Vancomycin HCl (Vanco Per Pharmacy) 1 each 1X STAT [facility] ; Start 01/08/19 at 22:39 ; Stop 01/08/19 at 22:49; Status DC Levofloxacin/ Dextrose 150 ml @ 100 mls/hr 1X ONCE IV Last administered on at 23:15; Start 01/08/19 at 22:45; Stop 01/09/19 at 00:14; Status DC Vancomycin HCl 1.5 gm/Sodium Chloride 500 ml @ 250 mls/hr 1X ONCE IV Last administered on 01/09/19at 01:05; Start 01/08/19 at 23:00; Stop 01/09/19 at 00:59 ; Status DC Ondansetron HCl (Zofran) 4 mg PRN Q8HRS PRN IV NAUSEA/VOMITING; Start 01/08/19 at 23:15; Stop 01/09/19 at 23:14 Acetaminophen (Tylenol) 650 mg PRN Q4HRS PRN PO FEVER; Start 01/08/19 at 23:15 ; Stop 01/09/19 at 23:14 Nitroglycerin (Nitrostat) 0.4 mg PRN Q5MIN PRN SL CHEST PAIN; Start 01/08/19 at 23:15; Stop 01/09/19 at 23:14 Albuterol/ Ipratropium (Duoneb) 3 ml RTQID NEB Last administered on 01/09/19at 07:16; Start 01/09/19 at 08:00; Stop 01/10/19 at 07:59 Gabapentin (Neurontin) 200 mg BID PO ; Start 01/09/19 at 09:00 Acetaminophen/ Hydrocodone Bitart (Lortab 5/325) 1 tab PRN Q6HRS PRN PO PAIN Last administered on 01/09/19at 04:30; Start 01/09/19 at 03:30 Active Scripts Active Novolog (Insulin Aspart) 100 Unit/1 Ml Cartridge 5-10 Unit SQ TIDBFRMEAL 30 Days Proair Respiclick (Albuterol Sulfate) 90 Mcg Aer.pow.ba 1 Puff IH PRN Q6HRS PRN Culturelle (Lactobacillus Rhamnosus Gg) 1 Each Cap.sprink 1 Cap PO BID 30 Days Combivent Respimat Inhal (Ipratropium/Albuterol Sulfate) 4 Gm Aer.w.adap 2 Inh IH QID 30 Days Labetalol Hcl 200 Mg Tablet 1 Tab PO DAILY 30 Days Children's Aspirin (Aspirin) 81 Mg Tab.chew 81 Mg PO DAILYWBKFT 30 Days Reported Lantus (Insulin Glargine,Hum.rec.anlog) 100 Unit/1 Ml Vial 7 SQ HS Omeprazole 40 Mg Capsule.dr 40 Mg PO DAILY Hydrocodone-Apap 5-325 (Hydrocodone Bit/Acetaminophen) 1 Each Tablet 1 Tab PO Q6HRS PRN Hydralazine Hcl 50 Mg Tablet 1 Tab PO TID Gabapentin (Gabapentin) 100 Mg Capsule 200 Mg PO BID Cetirizine Hcl 10 Mg Tablet 1 Tab PO DAILY Tylenol (Acetaminophen) 325 Mg Tablet 2 Tab PO PRN Q6HRS PRN Clonidine Hcl 0.1 Mg Tablet 0.1 Mg PO BID Alendronate Sodium 70 Mg Tablet 70 Mg PO Q2WKS Flonase Allergy Relief (Fluticasone Propionate) 9.9 Ml [place].susp 2 Sprays NS DAILY Calcium 600 + Vit D 400 Caplet (Calcium Carbonate/Vitamin D3) 1 Each Tablet 1 Each PO DAILY Renvela (Sevelamer Carbonate) 800 Mg Tablet 2 Tab PO [id number] Norvasc (Amlodipine Besylate) 10 Mg Tablet 10 Mg PO DAILY Windy-Abby Rx Tablet (Vit B Cmplx 3/Fa/Vit C/Biotin) 1 Each Tablet 1 Each PO DAILY Vitals/I & O Vital Sign - Last 24 Hours 01/08/19 01/08/19 01/08/19 01/08/19 20:54 21:29 21:34 22:11 Temp 99.3 99.3 Pulse 87 86 84 Resp 20 20 20 B/P (MAP) 164/72 (102) 183/77 (112) 157/67 (97) Pulse Ox 89 93 95 87 O2 Delivery Nasal Cannula Nasal Cannula Nasal Cannula Nasal Cannula O2 Flow Rate 3.0 3.0 3.0 1.0 01/08/19 01/08/19 01/08/19 01/09/19 22:38 23:01 23:45 03:36 Temp 98.6 98.6 Pulse 84 84 87 Resp 20 20 16 B/P (MAP) 159/67 (97) 149/61 (90) 158/72 (100) Pulse Ox 89 90 93 O2 Delivery Nasal Cannula Nasal Cannula Nasal Cannula Nasal Cannula O2 Flow Rate 1.0 1.0 3.0 3.0 01/09/19 01/09/19 01/09/19 01/09/19 03:38 04:30 05:34 05:43 Temp 98.8 99.6 98.8 99.6 Pulse 88 93 Resp 16 20 B/P (MAP) 167/60 (95) 157/97 (117) Pulse Ox 96 91 O2 Delivery Nasal Cannula Nasal Cannula Nasal Cannula Nasal Cannula O2 Flow Rate 3.0 3.0 4.0 01/09/19 07:15 Temp 101.0 101.0 Pulse 92 Resp 18 B/P (MAP) 151/50 (83) Pulse Ox 94 O2 Delivery Nasal Cannula O2 Flow Rate 3.0 Intake and Output 01/08/19 01/08/19 01/09/19 14:59 22:59 06:59 Intake Total 240 ml Balance 240 ml ARELI MATIAS MD Jan 09, 2019 08:44
[2019-01-09] MEDS ORDERED: ACETAMINOPHEN 325 MG TABLET. PO PRN (08:45)
[2019-01-09] MEDS ORDERED: DEXTROSE 50% 25 GM / 50ML DISP.SYRIN. IV PRN (08:45)
[2019-01-09] MEDS ORDERED: NON FORMULARY ITEM (Alendronate Sodium 70 MG) PO SCH (09:00)
[2019-01-09] MEDS: PANTOPRAZOLE 40 MG TABLET.DR. PO SCH (09:07)
[2019-01-09] MEDS: FOLIC/VIT B COMP W-C (RENAL) TABLET. PO SCH (09:08)
[2019-01-09] MEDS: CALCIUM CARB/VIT D3 500/200 TABLET. PO SCH (09:08)
[2019-01-09] MEDS: CETIRIZINE HCL 10 MG TABLET. PO SCH (09:08)
[2019-01-09] MEDS: GABAPENTIN 100 MG CAPSULE. PO SCH ×2 (09:08→21:00)
[2019-01-09] MEDS: LACTOBACILLUS RHAMNOSUS GG 1 CAPSULE. PO SCH ×2 (09:08→21:00)
[2019-01-09] MEDS: ASPIRIN CHEWABLE 81 MG TABLET. PO SCH (09:08)
[2019-01-09] MEDS: FLUTICASONE 50MCG/NASAL SPRAY 16GM BOTTLE. NS SCH (09:10)
[2019-01-09] MEDS: SEVELAMER CARBONATE 800 MG TABLET. PO SCH ×3 (09:11→18:00)
--- NOTE | 2019-01-09 09:14 | HP ---
ADMIT DATE: 01/08/2019 CHIEF COMPLAINT: Fever and shortness of breath. HISTORY OF PRESENT ILLNESS: The patient is a 68-year-old female who is a dialysis patient. She was at dialysis on the day of admission when she was found to have a fever of 101. She had not been aware of the fever, but had had noticed increasing cough and shortness of breath at home. She completed her dialysis treatment and then presented to the Emergency Room. Initial evaluation there included a chest x-ray, which showed developing infiltrates and fluid overload. Her BNP was also markedly elevated at over 22,000. She was started on broad-spectrum antibiotics and admitted for further care. PAST MEDICAL HISTORY: Frequent pneumonia; end-stage renal disease, on dialysis; diabetes mellitus type 2; hypertension; chronic back pain; osteoporosis; history of C. difficile colitis; osteoarthritis; mild coronary artery disease; allergic rhinitis. PAST SURGICAL HISTORY: , tonsillectomy, bilateral tubal ligation, bilateral rotator cuff repair, closed reduction and internal fixation of left ankle after fracture in 10/01, cholecystectomy, hysterectomy. ALLERGIES: The patient has no known drug allergies. HOME MEDICATIONS: Tylenol p.r.n., albuterol p.r.n., alendronate 70 mg every 2 weeks, amlodipine 10 mg daily, aspirin 81 mg daily, calcium daily, Zyrtec 10 mg daily, clonidine 0.1 mg b.i.d., Flonase daily, gabapentin 200 mg b.i.d., hydralazine 50 mg t.i.d., [place] 5/325 p.r.n., NovoLog insulin 5-10 units t.i.d. a.c., Lantus insulin 7 units at bedtime, Combivent inhaler q.i.d., labetalol 200 mg daily, omeprazole 40 mg daily, Renvela 800 mg 2 tablets t.i.d. a.c., renal vitamin daily. FAMILY HISTORY: Noncontributory. SOCIAL HISTORY: The patient is single. She lives with her daughter. She has never smoked cigarettes and does not drink alcohol to excess. REVIEW OF SYSTEMS: The patient had not noticed fever at home. She has had a cough. Her cough is somewhat chronic as she has had multiple hospitalizations for treatment of atypical pneumonia; however, her cough seemed worse to her for the past several days and she also had some shortness of air. The patient was discharged home on oxygen earlier this month and has been using this at home. She denies chest pain or palpitations. She denies abdominal pain, nausea or vomiting. She denies lower extremity edema. Her chronic pain has been stable. She has not missed any dialysis treatments. PHYSICAL EXAMINATION: GENERAL: The patient is alert and oriented x 3, resting comfortably in bed, in no acute distress. HEENT: PERRL, EOMI, sclerae clear. Oropharynx: Mucous membranes moist. NECK: Supple without lymphadenopathy. CHEST: Coarse breath sounds diffusely. No wheezes heard. CARDIOVASCULAR: Regular rhythm. ABDOMEN: Soft, nontender, normoactive bowel sounds are present. EXTREMITIES: Bilateral lower extremities are without edema. ASSESSMENT AND PLAN: 1. Tsogo-qm-[id number] respiratory failure with pneumonia and fever. Chest x-ray and chest exam have worsened from her previous hospitalization. She was started on broad-spectrum antibiotics by the Emergency Room. We will consult Pulmonary Medicine to help with further treatment. Continue oxygen and nebulized breathing treatments. 2. End-stage renal disease, fluid overload was seen on chest x-ray and BNP is significantly elevated. The patient has not missed dialysis and did have her usual treatment yesterday. We will consult Renal to help with further treatment. 3. Diabetes mellitus type 2. This has been well controlled. Continue insulin. 4. Hypertension. Continue home medication. 5. Chronic back pain. This is stable. Continue [place] as needed. ARELI MATIAS MD DR: EVONNE/ronaldo JOB#: [id number] / [id number] NISHA
[2019-01-09] MEDS: INSULIN LISPRO 300 UNITS/3 ML INSULN.PEN. SQ SCH ×2 (12:00→17:00)
[2019-01-09] MEDS ORDERED: IV NORMAL SALINE 1000ML BAG 1,000 ML IV PRN ×2 (12:34)
[2019-01-09] MEDS ORDERED: DIALYSIS PATIENT. MC PRN ×2 (12:45)
[2019-01-09] MEDS ORDERED: ALBUMIN HUMAN 25% 200 ML IV PRN (12:45)
--- NOTE | 2019-01-09 13:18 | PDOC2 ---
CONSULT Date of Consult Date of Consult DATE: 01/09/19 TIME: 13:13 Reason for Consult Reason for Consult: ESRD AND SOB Referring Physician Referring Physician: FLORENCIO Identification/Chief Complaint Chief Complaint SOB Source Source: Chart review, Patient History of Present Illness Reason for Visit: THIS IS A 68 YR OLD WITH SOB. HAS BEEN HAVING PROBLEMS WITH THIS FOR SEVERAL MONTHS AND HAS BEEN TREATED FOR PNEUMONIA. ALSO HAS HAD HER [employer] WEIGHT LOWERED FOR DIALYSIS IN THE PAST BUT STILL CONTINUES TO HAVE SOB AND ORTHOPNEA. LABS ARE C/W HER ESRD. SHE IS COMPLAINT WITH HER TX AND MEDS. ESRD IS DUE TO HTN AND DM II Past Medical History Cardiovascular: CAD, CHF, HTN, Hyperlipidemia Pulmonary: Pneumonia CENTRAL NERVOUS SYSTEM: Periperal neuropathy, TIA GI: GERD Heme/Onc: Anemia NOS Hepatobiliary: Cholelithiasis Psych: Depression Musculoskeletal: Other Rheumatologic: No pertinent hx Infectious disease: No pertinent hx Renal/: Chronic renal failure, UTI, Other Endocrine: Diabetes, Hyperparathyroidism Past Surgical History Past Surgical History: Arthroscopy, Cholecystectomy, , Tonsillectomy, Hysterectomy, Other Family History Family History: Cancer, Diabetes, Hypertension, Stroke Social History ALCOHOL: none Drugs: None Lives: with Family Domestic Violence: Neg Current Problem List Problem List Problems Medical Problems: (1) HAP (hospital-acquired pneumonia) Status: Acute Current Medications Current Medications Current Medications Albuterol/ Ipratropium (Duoneb) 3 ml 1X ONCE NEB Last administered on at 21:28; Start 01/08/19 at 21:15; Stop 01/08/19 at 21:16; Status DC Cefepime HCl (Maxipime) 2 gm 1X ONCE IVP Last administered on 01/08/19at 23:10 ; Start 01/08/19 at 23:00; Stop 01/08/19 at 23:01; Status DC Vancomycin HCl (Vanco Per Pharmacy) 1 each 1X STAT [facility] ; Start 01/08/19 at 22:39 ; Stop 01/08/19 at 22:49; Status DC Levofloxacin/ Dextrose 150 ml @ 100 mls/hr 1X ONCE IV Last administered on at 23:15; Start 01/08/19 at 22:45; Stop 01/09/19 at 00:14; Status DC Vancomycin HCl 1.5 gm/Sodium Chloride 500 ml @ 250 mls/hr 1X ONCE IV Last administered on 01/09/19 01:05; Start 01/08/19 at 23:00; Stop 01/09/19 at 00:59 ; Status DC Ondansetron HCl (Zofran) 4 mg PRN Q8HRS PRN IV NAUSEA/VOMITING; Start 01/08/19 at 23:15; Stop 01/09/19 at 23:14 Acetaminophen (Tylenol) 650 mg PRN Q4HRS PRN PO FEVER; Start 01/08/19 at 23:15 ; Stop 01/09/19 at 23:14 Nitroglycerin (Nitrostat) 0.4 mg PRN Q5MIN PRN SL CHEST PAIN; Start 01/08/19 at 23:15; Stop 01/09/19 at 23:14 Albuterol/ Ipratropium (Duoneb) 3 ml RTQID NEB Last administered on 01/09/19at 11:20; Start 01/09/19 at 08:00; Stop 01/10/19 at 07:59 Gabapentin (Neurontin) 200 mg BID PO Last administered on 01/09/19at 09:08; Start 01/09/19 at 09:00 Acetaminophen/ Hydrocodone Bitart (Lortab 5/325) 1 tab PRN Q6HRS PRN PO MODERATE-SEVERE PAIN Last administered on 01/09/19at 10:42; Start 01/09/19 at 03: 30 Zolpidem Tartrate (Ambien) 5 mg PRN QHS PRN PO INSOMNIA; Start 01/09/19 at 08: 30 Acetaminophen (Tylenol) 650 mg PRN Q6HRS PRN PO MILD PAIN; Start 01/09/19 at 08 :45 Amlodipine Besylate (Norvasc) 10 mg DAILY PO ; Start 01/09/19 at 09:00 Aspirin (Children'S Aspirin) 81 mg DAILYWBKFT PO Last administered on at 09:08; Start 01/09/19 at 09:00 Cetirizine HCl (ZyrTEC) 10 mg DAILY PO Last administered on 01/09/19at 09:08; Start 01/09/19 at 09:00 Clonidine HCl (Catapres) 0.1 mg BID PO ; Start 01/09/19 at 09:00 Lactobacillus Rhamnosus (Culturelle) 1 cap BID PO Last administered on at 09:08; Start 01/09/19 at 09:00 Sevelamer Carbonate (Renvela) 1,600 mg [id number] PO Last administered on at 09:11; Start 01/09/19 at 09:00 Non-Formulary Medication (Alendronate Sodium ) 70 mg Q2WKS PO ; Start 01/09/19 at 09:00; Status UNV Calcium/Vitamin D (Oscal D 500mg/ 200uts) 1 tab DAILY PO Last administered on at 09:08; Start 01/09/19 at 09:00 Fluticasone Propionate (Flonase) 2 spray DAILY NS Last administered on at 09:10; Start 01/09/19 at 09:30 Hydralazine HCl (Apresoline) 50 mg TID PO ; Start 01/09/19 at 09:00 Insulin Glargine (Lantus) 7 units QHS SQ ; Start 01/09/19 at 21:00 Labetalol HCl (Trandate) 200 mg DAILY PO ; Start 01/09/19 at 09:00 Pantoprazole Sodium (Protonix) 40 mg DAILYAC PO Last administered on 01/09/19at 09:07; Start 01/09/19 at 09:00 Vitamin B Complex/ Vitamin C (Windy-Abby) 1 tab DAILY PO Last administered on at 09:08; Start 01/09/19 at 09:00 Insulin Human Lispro (HumaLOG) 0-5 UNITS TIDWMEALS SQ ; Start 01/09/19 at 12:00 Dextrose (Dextrose 50%-Water Syringe) 12.5 gm PRN Q15MIN PRN IV SEE COMMENTS; Start 01/09/19 at 08:45 Sodium Chloride 1,000 ml @ 1,000 mls/hr Q1H PRN IV hypotension; Start 01/09/19 at 12:34; Stop 01/09/19 at 18:33 Albumin Human 200 ml @ 200 mls/hr 1X PRN PRN IV Hypotension; Start 01/09/19 at 12:45; Stop 01/09/19 at 18:44 Sodium Chloride 1,000 ml @ 400 mls/hr Q2H30M PRN IV PATENCY; Start 01/09/19 at 12:34; Stop 01/10/19 at 00:33 Info (PHARMACY MONITORING -- do not chart) 1 each PRN DAILY PRN MC SEE COMMENTS ; Start 01/09/19 at 12:45; Status UNV Info (PHARMACY MONITORING -- do not chart) 1 each PRN DAILY PRN MC SEE COMMENTS ; Start 01/09/19 at 12:45 Active Scripts Active Novolog (Insulin Aspart) 100 Unit/1 Ml Cartridge 5-10 Unit SQ TIDBFRMEAL 30 Days Proair Respiclick (Albuterol Sulfate) 90 Mcg Aer.pow.ba 1 Puff IH PRN Q6HRS PRN Culturelle (Lactobacillus Rhamnosus Gg) 1 Each Cap.sprink 1 Cap PO BID 30 Days Combivent Respimat Inhal (Ipratropium/Albuterol Sulfate) 4 Gm Aer.w.adap 2 Inh IH QID 30 Days Labetalol Hcl 200 Mg Tablet 1 Tab PO DAILY 30 Days Children's Aspirin (Aspirin) 81 Mg Tab.chew 81 Mg PO DAILYWBKFT 30 Days Reported Lantus (Insulin Glargine,Hum.rec.anlog) 100 Unit/1 Ml Vial 7 SQ HS Omeprazole 40 Mg Capsule.dr 40 Mg PO DAILY Hydrocodone-Apap 5-325 (Hydrocodone Bit/Acetaminophen) 1 Each Tablet 1 Tab PO Q6HRS PRN Hydralazine Hcl 50 Mg Tablet 1 Tab PO TID Gabapentin (Gabapentin) 100 Mg Capsule 200 Mg PO BID Cetirizine Hcl 10 Mg Tablet 1 Tab PO DAILY Tylenol (Acetaminophen) 325 Mg Tablet 2 Tab PO PRN Q6HRS PRN Clonidine Hcl 0.1 Mg Tablet 0.1 Mg PO BID Alendronate Sodium 70 Mg Tablet 70 Mg PO Q2WKS Flonase Allergy Relief (Fluticasone Propionate) 9.9 Ml Benjamin.susp 2 Sprays NS DAILY Calcium 600 + Vit D 400 Caplet (Calcium Carbonate/Vitamin D3) 1 Each Tablet 1 Each PO DAILY Renvela (Sevelamer Carbonate) 800 Mg Tablet 2 Tab PO [id number] Norvasc (Amlodipine Besylate) 10 Mg Tablet 10 Mg PO DAILY Windy-Abby Rx Tablet (Vit B Cmplx 3/Fa/Vit C/Biotin) 1 Each Tablet 1 Each PO DAILY Allergies Allergies: Coded Allergies: No Known Drug Allergies (Unverified , 2/27/18) ROS General: YES: Fatigue, Malaise, Appetite PSYCHOLOGICAL ROS: YES: Anxiety, Depression Eyes: Yes Decreased vision HEENT: YES: Heacaches Respiratory: YES: Cough, Orthopnea, Shortness of breath Cardiovascular: yes Orthopnea, yes Lt Headedness Gastrointestinal: Yes Constipation Genitourinary: YES Other (ANURIA) Musculoskeletal: Yes Muscular Weakness Neurological: Yes Weakness Physical Exam General: Alert, Oriented X3, Cooperative, No acute distress, mild distress HEENT: Atraumatic, EOMI, Mucous membr. moist/pink Lungs: Clear to auscultation Heart: Regular rate, Other (MR) Abdomen: Normal bowel sounds, Soft Extremities: No cyanosis, No edema Skin: No breakdown Neuro: Normal speech, Sensation intact Psych/Mental Status: Mental status NL, Mood NL MUSCULOSKELETAL: No joint tenderness, No deformity, No swelling Vitals VITALS Vital Signs Date Time Temp Pulse Resp B/P (MAP) Pulse Ox O2 Delivery O2 Flow Rate FiO2 01/09/19 11:30 100 Nasal Cannula 3.0 01/09/19 10:55 97.9 86 20 113/62 (79) 97.9 Labs Labs Laboratory Tests Test 01/08/19 21:46 01/08/19 21:55 01/09/19 00:01 01/09/19 04:30 Influenza Type A Antigen Negative (NEGATIVE) Influenza Type B Antigen Negative (NEGATIVE) White Blood Count 7.2 x10^3/uL (4.0-11.0) 7.9 x10^3/uL (4.0-11.0) Red Blood Count 3.27 x10^6/uL (3.50-5.40) 3.22 x10^6/uL (3.50-5.40) Hemoglobin 10.4 g/dL (12.0-15.5) 10.4 g/dL (12.0-15.5) Hematocrit 32.7 % (36.0-47.0) 32.1 % (36.0-47.0) Mean Corpuscular Volume 100 fL (79-100) 100 fL (79-100) Mean Corpuscular Hemoglobin 32 pg (25-35) 32 pg (25-35) Mean Corpuscular Hemoglobin Concent 32 g/dL (31-37) 33 g/dL (31-37) Red Cell Distribution Width 17.8 % (11.5-14.5) 17.8 % (11.5-14.5) Platelet Count 112 x10^3/uL (140-400) 104 x10^3/uL (140-400) Neutrophils (%) (Auto) 63 % (31-73) 65 % (31-73) Lymphocytes (%) (Auto) 23 % (24-48) 23 % (24-48) Monocytes (%) (Auto) 12 % (0-9) 11 % (0-9) Eosinophils (%) (Auto) 2 % (0-3) 1 % (0-3) Basophils (%) (Auto) 1 % (0-3) 1 % (0-3) Neutrophils # (Auto) 4.5 x10^3uL (1.8-7.7) 5.1 x10^3uL (1.8-7.7) Lymphocytes # (Auto) 1.6 x10^3/uL (1.0-4.8) 1.8 x10^3/uL (1.0-4.8) Monocytes # (Auto) 0.8 x10^3/uL (0.0-1.1) 0.9 x10^3/uL (0.0-1.1) Eosinophils # (Auto) 0.1 x10^3/uL (0.0-0.7) 0.1 x10^3/uL (0.0-0.7) Basophils # (Auto) 0.1 x10^3/uL (0.0-0.2) 0.0 x10^3/uL (0.0-0.2) Prothrombin Time 13.9 SEC (11.7-14.0) Prothromb Time International Ratio 1.1 (0.8-1.1) Sodium Level 142 mmol/L (136-145) 142 mmol/L (136-145) Potassium Level 3.6 mmol/L (3.5-5.1) 3.7 mmol/L (3.5-5.1) Chloride Level 103 mmol/L (98-107) 103 mmol/L (98-107) Carbon Dioxide Level 32 mmol/L (21-32) 28 mmol/L (21-32) Anion Gap 7 (6-14) 11 (6-14) Blood Urea Nitrogen 19 mg/dL (7-20) 20 mg/dL (7-20) Creatinine 3.6 mg/dL (0.6-1.0) 4.1 mg/dL (0.6-1.0) Estimated GFR (Cockcroft-Gault) 12.5 10.8 BUN/Creatinine Ratio 5 (6-20) 5 (6-20) Glucose Level 117 mg/dL (70-99) 114 mg/dL (70-99) Lactic Acid Level 0.7 mmol/L (0.4-2.0) Calcium Level 8.4 mg/dL (8.5-10.1) 8.1 mg/dL (8.5-10.1) Magnesium Level 1.8 mg/dL (1.8-2.4) Total Bilirubin 0.8 mg/dL (0.2-1.0) 0.7 mg/dL (0.2-1.0) Aspartate Amino Transf (AST/SGOT) 35 U/L (15-37) 32 U/L (15-37) Alanine Aminotransferase (ALT/SGPT) 15 U/L (14-59) 14 U/L (14-59) Alkaline Phosphatase 298 U/L (46-116) 281 U/L (46-116) Troponin I Quantitative 0.029 ng/mL (0.000-0.055) GU-Vud-O-Type Natriuretic Peptide 70490 pg/mL (0-124) Total Protein 6.4 g/dL (6.4-8.2) 6.4 g/dL (6.4-8.2) Albumin 2.6 g/dL (3.4-5.0) 2.7 g/dL (3.4-5.0) Albumin/Globulin Ratio 0.7 (1.0-1.7) 0.7 (1.0-1.7) Glucose (Fingerstick) 125 mg/dL (70-99) Test 01/09/19 07:04 01/09/19 11:32 Glucose (Fingerstick) 96 mg/dL (70-99) 111 mg/dL (70-99) Laboratory Tests Test 01/08/19 21:46 01/08/19 21:55 01/09/19 00:01 01/09/19 04:30 Influenza Type A Antigen Negative (NEGATIVE) Influenza Type B Antigen Negative (NEGATIVE) White Blood Count 7.2 x10^3/uL (4.0-11.0) 7.9 x10^3/uL (4.0-11.0) Red Blood Count 3.27 x10^6/uL (3.50-5.40) 3.22 x10^6/uL (3.50-5.40) Hemoglobin 10.4 g/dL (12.0-15.5) 10.4 g/dL (12.0-15.5) Hematocrit 32.7 % (36.0-47.0) 32.1 % (36.0-47.0) Mean Corpuscular Volume 100 fL (79-100) 100 fL (79-100) Mean Corpuscular Hemoglobin 32 pg (25-35) 32 pg (25-35) Mean Corpuscular Hemoglobin Concent 32 g/dL (31-37) 33 g/dL (31-37) Red Cell Distribution Width 17.8 % (11.5-14.5) 17.8 % (11.5-14.5) Platelet Count 112 x10^3/uL (140-400) 104 x10^3/uL (140-400) Neutrophils (%) (Auto) 63 % (31-73) 65 % (31-73) Lymphocytes (%) (Auto) 23 % (24-48) 23 % (24-48) Monocytes (%) (Auto) 12 % (0-9) 11 % (0-9) Eosinophils (%) (Auto) 2 % (0-3) 1 % (0-3) Basophils (%) (Auto) 1 % (0-3) 1 % (0-3) Neutrophils # (Auto) 4.5 x10^3uL (1.8-7.7) 5.1 x10^3uL (1.8-7.7) Lymphocytes # (Auto) 1.6 x10^3/uL (1.0-4.8) 1.8 x10^3/uL (1.0-4.8) Monocytes # (Auto) 0.8 x10^3/uL (0.0-1.1) 0.9 x10^3/uL (0.0-1.1) Eosinophils # (Auto) 0.1 x10^3/uL (0.0-0.7) 0.1 x10^3/uL (0.0-0.7) Basophils # (Auto) 0.1 x10^3/uL (0.0-0.2) 0.0 x10^3/uL (0.0-0.2) Prothrombin Time 13.9 SEC (11.7-14.0) Prothromb Time International Ratio 1.1 (0.8-1.1) Sodium Level 142 mmol/L (136-145) 142 mmol/L (136-145) Potassium Level 3.6 mmol/L (3.5-5.1) 3.7 mmol/L (3.5-5.1) Chloride Level 103 mmol/L (98-107) 103 mmol/L (98-107) Carbon Dioxide Level 32 mmol/L (21-32) 28 mmol/L (21-32) Anion Gap 7 (6-14) 11 (6-14) Blood Urea Nitrogen 19 mg/dL (7-20) 20 mg/dL (7-20) Creatinine 3.6 mg/dL (0.6-1.0) 4.1 mg/dL (0.6-1.0) Estimated GFR (Cockcroft-Gault) 12.5 10.8 BUN/Creatinine Ratio 5 (6-20) 5 (6-20) Glucose Level 117 mg/dL (70-99) 114 mg/dL (70-99) Lactic Acid Level 0.7 mmol/L (0.4-2.0) Calcium Level 8.4 mg/dL (8.5-10.1) 8.1 mg/dL (8.5-10.1) Magnesium Level 1.8 mg/dL (1.8-2.4) Total Bilirubin 0.8 mg/dL (0.2-1.0) 0.7 mg/dL (0.2-1.0) Aspartate Amino Transf (AST/SGOT) 35 U/L (15-37) 32 U/L (15-37) Alanine Aminotransferase (ALT/SGPT) 15 U/L (14-59) 14 U/L (14-59) Alkaline Phosphatase 298 U/L (46-116) 281 U/L (46-116) Troponin I Quantitative 0.029 ng/mL (0.000-0.055) QP-Wfy-S-Type Natriuretic Peptide 42066 pg/mL (0-124) Total Protein 6.4 g/dL (6.4-8.2) 6.4 g/dL (6.4-8.2) Albumin 2.6 g/dL (3.4-5.0) 2.7 g/dL (3.4-5.0) Albumin/Globulin Ratio 0.7 (1.0-1.7) 0.7 (1.0-1.7) Glucose (Fingerstick) 125 mg/dL (70-99) Test 01/09/19 07:04 01/09/19 11:32 Glucose (Fingerstick) 96 mg/dL (70-99) 111 mg/dL (70-99) Assessment/Plan Assessment/Plan IMP CHF-PROB CHRONIC AND ACUTE DIASTOLIC POSSIBLE PNEUMONIA ANEMIA DM II ESRD-MWF HTN PLAN HD EXTRA TODAY UF MUCH TOLERATED ANTIBIOTICS PULM EVAL-?PULM FIBROSIS CONSIDER CARDIOLOGY EVAL IF NOT DONE LATELY NEED TO R/O PULM HTN NEED TO ALSO EVALUATE FOR CHRONIC O2 NEEDS SCHEDULED HD MWF AFTER TODAY WILL FOLLOW DAKOTA ARIAS MD Jan 09, 2019 13:18
[2019-01-09] MEDS ORDERED: levOFLOXacin PER PHARMACY. MC PRN (17:45)
--- NOTE | 2019-01-09 17:49 | PDOC ---
PULMONARY PROGRESS NOTES Vitals Vital Signs Date Time Temp Pulse Resp B/P (MAP) Pulse Ox O2 Delivery O2 Flow Rate FiO2 01/09/19 17:05 Nasal Cannula 3.0 01/09/19 17:00 98.8 82 16 142/63 (89) 96 98.8 General: Alert, No acute distress HEENT: Other Lungs: Crackles Cardiovascular: S1, S2 Abdomen: Soft, Non-tender Extremities: No Edema Labs Laboratory Tests Test 01/08/19 21:46 01/08/19 21:55 01/09/19 00:01 01/09/19 04:30 Influenza Type A Antigen Negative (NEGATIVE) Influenza Type B Antigen Negative (NEGATIVE) White Blood Count 7.2 x10^3/uL (4.0-11.0) 7.9 x10^3/uL (4.0-11.0) Red Blood Count 3.27 x10^6/uL (3.50-5.40) 3.22 x10^6/uL (3.50-5.40) Hemoglobin 10.4 g/dL (12.0-15.5) 10.4 g/dL (12.0-15.5) Hematocrit 32.7 % (36.0-47.0) 32.1 % (36.0-47.0) Mean Corpuscular Volume 100 fL (79-100) 100 fL (79-100) Mean Corpuscular Hemoglobin 32 pg (25-35) 32 pg (25-35) Mean Corpuscular Hemoglobin Concent 32 g/dL (31-37) 33 g/dL (31-37) Red Cell Distribution Width 17.8 % (11.5-14.5) 17.8 % (11.5-14.5) Platelet Count 112 x10^3/uL (140-400) 104 x10^3/uL (140-400) Neutrophils (%) (Auto) 63 % (31-73) 65 % (31-73) Lymphocytes (%) (Auto) 23 % (24-48) 23 % (24-48) Monocytes (%) (Auto) 12 % (0-9) 11 % (0-9) Eosinophils (%) (Auto) 2 % (0-3) 1 % (0-3) Basophils (%) (Auto) 1 % (0-3) 1 % (0-3) Neutrophils # (Auto) 4.5 x10^3uL (1.8-7.7) 5.1 x10^3uL (1.8-7.7) Lymphocytes # (Auto) 1.6 x10^3/uL (1.0-4.8) 1.8 x10^3/uL (1.0-4.8) Monocytes # (Auto) 0.8 x10^3/uL (0.0-1.1) 0.9 x10^3/uL (0.0-1.1) Eosinophils # (Auto) 0.1 x10^3/uL (0.0-0.7) 0.1 x10^3/uL (0.0-0.7) Basophils # (Auto) 0.1 x10^3/uL (0.0-0.2) 0.0 x10^3/uL (0.0-0.2) Prothrombin Time 13.9 SEC (11.7-14.0) Prothromb Time International Ratio 1.1 (0.8-1.1) Sodium Level 142 mmol/L (136-145) 142 mmol/L (136-145) Potassium Level 3.6 mmol/L (3.5-5.1) 3.7 mmol/L (3.5-5.1) Chloride Level 103 mmol/L (98-107) 103 mmol/L (98-107) Carbon Dioxide Level 32 mmol/L (21-32) 28 mmol/L (21-32) Anion Gap 7 (6-14) 11 (6-14) Blood Urea Nitrogen 19 mg/dL (7-20) 20 mg/dL (7-20) Creatinine 3.6 mg/dL (0.6-1.0) 4.1 mg/dL (0.6-1.0) Estimated GFR (Cockcroft-Gault) 12.5 10.8 BUN/Creatinine Ratio 5 (6-20) 5 (6-20) Glucose Level 117 mg/dL (70-99) 114 mg/dL (70-99) Lactic Acid Level 0.7 mmol/L (0.4-2.0) Calcium Level 8.4 mg/dL (8.5-10.1) 8.1 mg/dL (8.5-10.1) Magnesium Level 1.8 mg/dL (1.8-2.4) Total Bilirubin 0.8 mg/dL (0.2-1.0) 0.7 mg/dL (0.2-1.0) Aspartate Amino Transf (AST/SGOT) 35 U/L (15-37) 32 U/L (15-37) Alanine Aminotransferase (ALT/SGPT) 15 U/L (14-59) 14 U/L (14-59) Alkaline Phosphatase 298 U/L (46-116) 281 U/L (46-116) Troponin I Quantitative 0.029 ng/mL (0.000-0.055) AV-Llg-A-Type Natriuretic Peptide 90810 pg/mL (0-124) Total Protein 6.4 g/dL (6.4-8.2) 6.4 g/dL (6.4-8.2) Albumin 2.6 g/dL (3.4-5.0) 2.7 g/dL (3.4-5.0) Albumin/Globulin Ratio 0.7 (1.0-1.7) 0.7 (1.0-1.7) Glucose (Fingerstick) 125 mg/dL (70-99) Test 01/09/19 07:04 01/09/19 11:32 01/09/19 16:55 Glucose (Fingerstick) 96 mg/dL (70-99) 111 mg/dL (70-99) 96 mg/dL (70-99) Laboratory Tests Test 01/08/19 21:46 01/08/19 21:55 01/09/19 00:01 01/09/19 04:30 Influenza Type A Antigen Negative (NEGATIVE) Influenza Type B Antigen Negative (NEGATIVE) White Blood Count 7.2 x10^3/uL (4.0-11.0) 7.9 x10^3/uL (4.0-11.0) Red Blood Count 3.27 x10^6/uL (3.50-5.40) 3.22 x10^6/uL (3.50-5.40) Hemoglobin 10.4 g/dL (12.0-15.5) 10.4 g/dL (12.0-15.5) Hematocrit 32.7 % (36.0-47.0) 32.1 % (36.0-47.0) Mean Corpuscular Volume 100 fL (79-100) 100 fL (79-100) Mean Corpuscular Hemoglobin 32 pg (25-35) 32 pg (25-35) Mean Corpuscular Hemoglobin Concent 32 g/dL (31-37) 33 g/dL (31-37) Red Cell Distribution Width 17.8 % (11.5-14.5) 17.8 % (11.5-14.5) Platelet Count 112 x10^3/uL (140-400) 104 x10^3/uL (140-400) Neutrophils (%) (Auto) 63 % (31-73) 65 % (31-73) Lymphocytes (%) (Auto) 23 % (24-48) 23 % (24-48) Monocytes (%) (Auto) 12 % (0-9) 11 % (0-9) Eosinophils (%) (Auto) 2 % (0-3) 1 % (0-3) Basophils (%) (Auto) 1 % (0-3) 1 % (0-3) Neutrophils # (Auto) 4.5 x10^3uL (1.8-7.7) 5.1 x10^3uL (1.8-7.7) Lymphocytes # (Auto) 1.6 x10^3/uL (1.0-4.8) 1.8 x10^3/uL (1.0-4.8) Monocytes # (Auto) 0.8 x10^3/uL (0.0-1.1) 0.9 x10^3/uL (0.0-1.1) Eosinophils # (Auto) 0.1 x10^3/uL (0.0-0.7) 0.1 x10^3/uL (0.0-0.7) Basophils # (Auto) 0.1 x10^3/uL (0.0-0.2) 0.0 x10^3/uL (0.0-0.2) Prothrombin Time 13.9 SEC (11.7-14.0) Prothromb Time International Ratio 1.1 (0.8-1.1) Sodium Level 142 mmol/L (136-145) 142 mmol/L (136-145) Potassium Level 3.6 mmol/L (3.5-5.1) 3.7 mmol/L (3.5-5.1) Chloride Level 103 mmol/L (98-107) 103 mmol/L (98-107) Carbon Dioxide Level 32 mmol/L (21-32) 28 mmol/L (21-32) Anion Gap 7 (6-14) 11 (6-14) Blood Urea Nitrogen 19 mg/dL (7-20) 20 mg/dL (7-20) Creatinine 3.6 mg/dL (0.6-1.0) 4.1 mg/dL (0.6-1.0) Estimated GFR (Cockcroft-Gault) 12.5 10.8 BUN/Creatinine Ratio 5 (6-20) 5 (6-20) Glucose Level 117 mg/dL (70-99) 114 mg/dL (70-99) Lactic Acid Level 0.7 mmol/L (0.4-2.0) Calcium Level 8.4 mg/dL (8.5-10.1) 8.1 mg/dL (8.5-10.1) Magnesium Level 1.8 mg/dL (1.8-2.4) Total Bilirubin 0.8 mg/dL (0.2-1.0) 0.7 mg/dL (0.2-1.0) Aspartate Amino Transf (AST/SGOT) 35 U/L (15-37) 32 U/L (15-37) Alanine Aminotransferase (ALT/SGPT) 15 U/L (14-59) 14 U/L (14-59) Alkaline Phosphatase 298 U/L (46-116) 281 U/L (46-116) Troponin I Quantitative 0.029 ng/mL (0.000-0.055) SD-Jfh-V-Type Natriuretic Peptide 64659 pg/mL (0-124) Total Protein 6.4 g/dL (6.4-8.2) 6.4 g/dL (6.4-8.2) Albumin 2.6 g/dL (3.4-5.0) 2.7 g/dL (3.4-5.0) Albumin/Globulin Ratio 0.7 (1.0-1.7) 0.7 (1.0-1.7) Glucose (Fingerstick) 125 mg/dL (70-99) Test 01/09/19 07:04 01/09/19 11:32 01/09/19 16:55 Glucose (Fingerstick) 96 mg/dL (70-99) 111 mg/dL (70-99) 96 mg/dL (70-99) Medications Active Scripts Medications Dose Route/Sig Max Daily Dose Days Date Category Novolog (Insulin Aspart) 100 Unit/1 Ml Cartridge 5-10 Unit SQ TIDBFRMEAL 30 01/09/19 Rx Lantus (Insulin Glargine,Hum.rec.anlog) 100 Unit/1 Ml Vial 7 SQ HS 12/05/18 Reported Proair Respiclick (Albuterol Sulfate) 90 Mcg Aer.pow.ba 1 Puff IH PRN Q6HRS PRN 04/10/18 Rx Culturelle (Lactobacillus Rhamnosus Gg) 1 Each Cap.sprink 1 Cap PO BID 30 12/15/17 Rx Combivent Respimat Inhal (Ipratropium/Albuterol Sulfate) 4 Gm Aer.w.adap 2 Inh IH QID 30 09/02/17 Rx Labetalol Hcl 200 Mg Tablet 1 Tab PO DAILY 30 09/02/17 Rx Omeprazole 40 Mg Capsule.dr 40 Mg PO DAILY 09/01/17 Reported Hydrocodone-Apap 5-325 (Hydrocodone Bit/Acetaminophen) 1 Each Tablet 1 Tab PO Q6HRS PRN 09/01/17 Reported Hydralazine Hcl 50 Mg Tablet 1 Tab PO TID 04/08/17 Reported Gabapentin (Gabapentin) 100 Mg Capsule 200 Mg PO BID 04/08/17 Reported Cetirizine Hcl 10 Mg Tablet 1 Tab PO DAILY 10/29/16 Reported Tylenol (Acetaminophen) 325 Mg Tablet 2 Tab PO PRN Q6HRS PRN 10/29/16 Reported Clonidine Hcl 0.1 Mg Tablet 0.1 Mg PO BID 09/17/16 Reported Alendronate Sodium 70 Mg Tablet 70 Mg PO Q2WKS 09/17/16 Reported Flonase Allergy Relief (Fluticasone Propionate) 9.9 Ml [place].susp 2 Sprays NS DAILY 09/17/16 Reported Children's Aspirin (Aspirin) 81 Mg Tab.chew 81 Mg PO DAILYWBKFT 30 11/04/15 Rx Calcium 600 + Vit D 400 Caplet (Calcium Carbonate/Vitamin D3) 1 Each Tablet 1 Each PO DAILY 10/24/15 Reported Renvela (Sevelamer Carbonate) 800 Mg Tablet 2 Tab PO [id number] 12/21/14 Reported Norvasc (Amlodipine Besylate) 10 Mg Tablet 10 Mg PO DAILY 11/11/13 Reported Windy-[facility]by Rx Tablet (Vit B Cmplx 3/Fa/Vit C/Biotin) 1 Each Tablet 1 Each PO DAILY 11/11/13 Reported Impression . FULL NOTE DICTATED PNEUMONIA AGREE WITH CURRENT RX THANKS TAMI RAMIREZ MD Jan 09, 2019 17:49
[2019-01-09] MEDS: LABETALOL HCL 200 MG TABLET PO SCH (18:06)
[2019-01-09] MEDS: cloNIDine HCL 0.1 MG TABLET PO SCH ×2 (18:06→21:00)
[2019-01-09] MEDS: amLODIPine BESYLATE 10 MG TABLET PO SCH (18:06)
[2019-01-09] MEDS ORDERED: VANCOMYCIN 1.5 GM in IV NORMAL SALINE 500ML BAG 500 ML IV ONE (18:30)
[2019-01-09] MEDS: VANCOMYCIN PER PHARMACY MC PRN (18:49)
--- NOTE | 2019-01-09 18:52 | NUR ---
Pharmacy Vancomycin Dosing Note S:Consulted to monitor and dose vancomycin started 01/09/19. O:ROBBIN LYNN is a 68 year old F with Pneumonia . Height: 5 feet, 2 inches Weight: 60.261650 kg [place] Body Weight: 50.10 Adjusted Body Weight: 54.22 Dosing Weight: Actual Other Antibiotics: LABS: Last BUN: 20 Last Creatinine: 4.1 Creatinine Clearance: On HD - mL/min Last WBC: 7.9 Last Procalcitonin: Tmax (past 24 hours): 102.3 Microbiology: I/O: Drug Levels: Last level: on at Last dose given 01/09/19 at 0105 Vancomycin Dosing: Loading Dose: 1500 mg x1 Dosing Weight: Actual Target Trough: 15-20 A: Based on weight and HD status: P: 1. Give Vancomycin 1500mg IV One Time. 2. Follow up Random level on 01/10/19 at 0600. 3. Pharmacy will continue to monitor, follow and adjust therapy as needed. Anders Younger, [facility] [place] [place], 01/09/19 [id number]
[2019-01-09] MEDS ORDERED: DARBEPOETIN ALFA 60 MCG/0.3 ML DISP.SYRIN. SQ SCH (21:00)
[2019-01-09] MEDS: INSULIN GLARGINE 300 UNITS/3 ML INSULN.PEN. SQ SCH (21:00)
--- NOTE | 2019-01-09 23:43 | NUR ---
This nurse did not administer pt 2100 medications due to patient asked if sleeping to be left alone and allowed to sleep.
[2019-01-10 03:09] VITALS: BP 153/45
--- NOTE | 2019-01-10 05:19 | CONS ---
DATE OF CONSULTATION: 01/09/2019 ATTENDING PHYSICIAN: Dr. Nicolasa Baunelos. REASON FOR CONSULTATION: The patient is seen in pulmonary consultation at the request of Dr. Banuelos for abnormal x-ray. HISTORY OF PRESENT ILLNESS: The patient is a 68-year-old, well known to me from previous hospitalization, presented with increasing shortness of breath, fever and chills. She was having fever, doing dialysis. She has a cough, mostly nonproductive. Chest x-ray revealed increasing infiltrate. I was asked to see her in consultation. The patient was started on IV antibiotics. She currently returned from dialysis. She continues to have chills and not feeling well. She has a cough, mostly nonproductive. No hemoptysis. PAST MEDICAL HISTORY: Recurrent mucus plugging, pneumonia, end-stage renal disease, on hemodialysis; type 2 diabetes, hypertension, chronic pain, she has had previous C. diff colitis, osteoarthritis, coronary artery disease and allergic rhinitis. PAST SURGICAL HISTORY: Bilateral tubal ligation, . She has had previous left ankle fracture repair, cholecystectomy, hysterectomy. ALLERGIES: No known drug allergies. HOME MEDICATIONS: List was reviewed. FAMILY HISTORY: No family history of lung disorders. SOCIAL HISTORY: She has never smoked. REVIEW OF SYSTEMS: As indicated above, otherwise, a 10-point system was reviewed and negative. PHYSICAL EXAMINATION: VITAL SIGNS: Stable. O2 saturation was greater than 92%, currently on 3 liters. She normally wears oxygen at home at 1 liter. HEENT: Eyes, the sclerae were nonicteric. NECK: Jugular venous distention was not elevated. No lymphadenopathy. CHEST: Full expansion. LUNGS: Crackles and rhonchi bilaterally. CARDIOVASCULAR: Regular rate and rhythm with S1, S2, no S3. ABDOMEN: Soft, nontender, nondistended. EXTREMITIES: No clubbing or cyanosis. No significant pitting edema. NEUROLOGIC: The patient was awake, alert, following commands. A detailed neuro exam was not performed. LABORATORY DATA: Reviewed. White count was normal. Hemoglobin and hematocrit were noted. Serology was negative. IMPRESSION: 1. Abnormal x-ray. 2. Acute hypoxemic respiratory failure. 3. Pneumonia. 4. End-stage renal disease, on hemodialysis. 5. History of mucus plugging. 6. Multiple other comorbidities. PLAN: 1. Continue Levaquin and vancomycin. 2. Reviewed medication list. I do not think any of the medication is causing recurrent acute lung injury. 3. We will continue the above and make further recommendations depending on the patient's clinical response. Dr. Banuelos, I do appreciate the privilege in sharing in the patient's care. TAMI RAMIREZ MD DR: ALYSIA/ronaldo JOB#: [id number] / [id number]
[2019-01-10] MEDS ORDERED: VANCOMYCIN RANDOM LEVEL. MC ONE (06:00)
[2019-01-10 07:00] VITALS: BP 140/56
[2019-01-10] MEDS: SEVELAMER CARBONATE 800 MG TABLET. PO SCH ×3 (07:00→16:31)
--- NOTE | 2019-01-10 07:00 | NUR ---
Pt taken to dialysis per bed.
[2019-01-10] MEDS: PANTOPRAZOLE 40 MG TABLET.DR. PO SCH (07:30)
[2019-01-10] MEDS: INSULIN LISPRO 300 UNITS/3 ML INSULN.PEN. SQ SCH ×3 (08:00→18:40)
[2019-01-10] MEDS ORDERED: IV NORMAL SALINE 1000ML BAG 1,000 ML IV PRN ×2 (08:05)
[2019-01-10] MEDS: LACTOBACILLUS RHAMNOSUS GG 1 CAPSULE. PO SCH ×2 (08:08→21:17)
[2019-01-10] MEDS: cloNIDine HCL 0.1 MG TABLET PO SCH ×2 (08:08→21:18)
[2019-01-10] MEDS ORDERED: DIALYSIS PATIENT. MC PRN (08:15)
[2019-01-10] MEDS ORDERED: diphenhydrAMINE 50 MG/ML VIAL IV PRN ×2 (08:15)
--- NOTE | 2019-01-10 09:06 | PDOC ---
PROGRESS NOTES Subjective Subjective Patient not feeling much better. Was able to sleep last night. Objective Objective Vital Signs Date Time Temp Pulse Resp B/P (MAP) Pulse Ox O2 Delivery O2 Flow Rate FiO2 01/10/19 07:00 98.2 82 18 140/56 (84) 94 Nasal Cannula 3.0 98.2 Intake and Output 01/10/19 06:59 Intake Total 840 ml Output Total 0 ml Balance 840 ml Intake Oral 840 ml Output Urine Total 0 ml Physical Exam Abdomen: Normal bowel sounds, Soft, No tenderness Heart: Regular rate Extremities: No edema General: Alert, Oriented X3, No acute distress Lungs: Other (coarse BS throughout) Assessment Assessment Problems Medical Problems: (1) HAP (hospital-acquired pneumonia) Status: Acute Plan Plan of Care 1. Acute on chronic respiratory failure with pneumonia and fever - stable, Tm102.3. Continue Levaquin and Vancomycin, nebs and O2. Dr Kirk following. 2. ESRD with fluid overload - patient had extra dialysis tx yesterday and is receiving her usual treatment today. Continue as per Dr Velasquez. 3. DM2 - controlled, continue insulins. 4. HTN - controlled, continue home medication. Comment Review of Relevant I have reviewed the following items cosmo (where applicable) has been applied. Labs Laboratory Tests Test 01/08/19 21:46 01/08/19 21:55 01/09/19 00:01 01/09/19 04:30 Influenza Type A Antigen Negative (NEGATIVE) Influenza Type B Antigen Negative (NEGATIVE) White Blood Count 7.2 x10^3/uL (4.0-11.0) 7.9 x10^3/uL (4.0-11.0) Red Blood Count 3.27 x10^6/uL (3.50-5.40) 3.22 x10^6/uL (3.50-5.40) Hemoglobin 10.4 g/dL (12.0-15.5) 10.4 g/dL (12.0-15.5) Hematocrit 32.7 % (36.0-47.0) 32.1 % (36.0-47.0) Mean Corpuscular Volume 100 fL (79-100) 100 fL (79-100) Mean Corpuscular Hemoglobin 32 pg (25-35) 32 pg (25-35) Mean Corpuscular Hemoglobin Concent 32 g/dL (31-37) 33 g/dL (31-37) Red Cell Distribution Width 17.8 % (11.5-14.5) 17.8 % (11.5-14.5) Platelet Count 112 x10^3/uL (140-400) 104 x10^3/uL (140-400) Neutrophils (%) (Auto) 63 % (31-73) 65 % (31-73) Lymphocytes (%) (Auto) 23 % (24-48) 23 % (24-48) Monocytes (%) (Auto) 12 % (0-9) 11 % (0-9) Eosinophils (%) (Auto) 2 % (0-3) 1 % (0-3) Basophils (%) (Auto) 1 % (0-3) 1 % (0-3) Neutrophils # (Auto) 4.5 x10^3uL (1.8-7.7) 5.1 x10^3uL (1.8-7.7) Lymphocytes # (Auto) 1.6 x10^3/uL (1.0-4.8) 1.8 x10^3/uL (1.0-4.8) Monocytes # (Auto) 0.8 x10^3/uL (0.0-1.1) 0.9 x10^3/uL (0.0-1.1) Eosinophils # (Auto) 0.1 x10^3/uL (0.0-0.7) 0.1 x10^3/uL (0.0-0.7) Basophils # (Auto) 0.1 x10^3/uL (0.0-0.2) 0.0 x10^3/uL (0.0-0.2) Prothrombin Time 13.9 SEC (11.7-14.0) Prothromb Time International Ratio 1.1 (0.8-1.1) Sodium Level 142 mmol/L (136-145) 142 mmol/L (136-145) Potassium Level 3.6 mmol/L (3.5-5.1) 3.7 mmol/L (3.5-5.1) Chloride Level 103 mmol/L (98-107) 103 mmol/L (98-107) Carbon Dioxide Level 32 mmol/L (21-32) 28 mmol/L (21-32) Anion Gap 7 (6-14) 11 (6-14) Blood Urea Nitrogen 19 mg/dL (7-20) 20 mg/dL (7-20) Creatinine 3.6 mg/dL (0.6-1.0) 4.1 mg/dL (0.6-1.0) Estimated GFR (Cockcroft-Gault) 12.5 10.8 BUN/Creatinine Ratio 5 (6-20) 5 (6-20) Glucose Level 117 mg/dL (70-99) 114 mg/dL (70-99) Lactic Acid Level 0.7 mmol/L (0.4-2.0) Calcium Level 8.4 mg/dL (8.5-10.1) 8.1 mg/dL (8.5-10.1) Magnesium Level 1.8 mg/dL (1.8-2.4) Total Bilirubin 0.8 mg/dL (0.2-1.0) 0.7 mg/dL (0.2-1.0) Aspartate Amino Transf (AST/SGOT) 35 U/L (15-37) 32 U/L (15-37) Alanine Aminotransferase (ALT/SGPT) 15 U/L (14-59) 14 U/L (14-59) Alkaline Phosphatase 298 U/L (46-116) 281 U/L (46-116) Troponin I Quantitative 0.029 ng/mL (0.000-0.055) EQ-Fip-Y-Type Natriuretic Peptide 26515 pg/mL (0-124) Total Protein 6.4 g/dL (6.4-8.2) 6.4 g/dL (6.4-8.2) Albumin 2.6 g/dL (3.4-5.0) 2.7 g/dL (3.4-5.0) Albumin/Globulin Ratio 0.7 (1.0-1.7) 0.7 (1.0-1.7) Glucose (Fingerstick) 125 mg/dL (70-99) Test 01/09/19 07:04 01/09/19 11:32 01/09/19 16:55 01/09/19 20:36 Glucose (Fingerstick) 96 mg/dL (70-99) 111 mg/dL (70-99) 96 mg/dL (70-99) 125 mg/dL (70-99) Test 01/10/19 06:30 01/10/19 06:58 Random Vancomycin Level 17.2 mcg/mL Glucose (Fingerstick) 87 mg/dL (70-99) Laboratory Tests Test 01/09/19 11:32 01/09/19 16:55 01/09/19 20:36 01/10/19 06:30 Glucose (Fingerstick) 111 mg/dL (70-99) 96 mg/dL (70-99) 125 mg/dL (70-99) Random Vancomycin Level 17.2 mcg/mL Test 01/10/19 06:58 Glucose (Fingerstick) 87 mg/dL (70-99) Microbiology 01/08/19 Blood Culture - Preliminary, Resulted NO GROWTH AFTER 1 DAY Medications Current Medications Albuterol/ Ipratropium (Duoneb) 3 ml 1X ONCE NEB Last administered on at 21:28; Start 01/08/19 at 21:15; Stop 01/08/19 at 21:16; Status DC Cefepime HCl (Maxipime) 2 gm 1X ONCE IVP Last administered on 01/08/19at 23:10 ; Start 01/08/19 at 23:00; Stop 01/08/19 at 23:01; Status DC Vancomycin HCl (Vanco Per Pharmacy) 1 each 1X STAT MC ; Start 01/08/19 at 22:39 ; Stop 01/08/19 at 22:49; Status DC Levofloxacin/ Dextrose 150 ml @ 100 mls/hr 1X ONCE IV Last administered on at 23:15; Start 01/08/19 at 22:45; Stop 01/09/19 at 00:14; Status DC Vancomycin HCl 1.5 gm/Sodium Chloride 500 ml @ 250 mls/hr 1X ONCE IV Last administered on 01/09/19at 01:05; Start 01/08/19 at 23:00; Stop 01/09/19 at 00:59 ; Status DC Ondansetron HCl (Zofran) 4 mg PRN Q8HRS PRN IV NAUSEA/VOMITING; Start 01/08/19 at 23:15; Stop 01/09/19 at 23:14; Status DC Acetaminophen (Tylenol) 650 mg PRN Q4HRS PRN PO FEVER; Start 01/08/19 at 23:15 ; Stop 01/09/19 at 23:14; Status DC Nitroglycerin (Nitrostat) 0.4 mg PRN Q5MIN PRN SL CHEST PAIN; Start 01/08/19 at 23:15; Stop 01/09/19 at 23:14; Status DC Albuterol/ Ipratropium (Duoneb) 3 ml RTQID NEB Last administered on 01/09/19at 19:21; Start 01/09/19 at 08:00; Stop 01/10/19 at 07:59; Status DC Gabapentin (Neurontin) 200 mg BID PO Last administered on 01/09/19 09:08; Start 01/09/19 at 09:00 Acetaminophen/ Hydrocodone Bitart (Lortab 5/325) 1 tab PRN Q6HRS PRN PO MODERATE-SEVERE PAIN Last administered on 01/09/19 18:07; Start 01/09/19 at 03: 30 Zolpidem Tartrate (Ambien) 5 mg PRN QHS PRN PO INSOMNIA; Start 01/09/19 at 08: 30 Acetaminophen (Tylenol) 650 mg PRN Q6HRS PRN PO MILD PAIN; Start 01/09/19 at 08 :45 Amlodipine Besylate (Norvasc) 10 mg DAILY PO Last administered on 01/09/19 18: 06; Start 01/09/19 at 09:00 Aspirin (Children'S Aspirin) 81 mg DAILYWBKFT PO Last administered on at 09:08; Start 01/09/19 at 09:00 Cetirizine HCl (ZyrTEC) 10 mg DAILY PO Last administered on 01/09/19 09:08; Start 01/09/19 at 09:00 Clonidine HCl (Catapres) 0.1 mg BID PO Last administered on 01/09/19 18:06; Start 01/09/19 at 09:00 Lactobacillus Rhamnosus (Culturelle) 1 cap BID PO Last administered on 09:08; Start 01/09/19 at 09:00 Sevelamer Carbonate (Renvela) 1,600 mg [id number] PO Last administered on at 13:12; Start 01/09/19 at 09:00 Non-Formulary Medication (Alendronate Sodium ) 70 mg Q2WKS PO ; Start 01/09/19 at 09:00; Status UNV Calcium/Vitamin D (Oscal D 500mg/ 200uts) 1 tab DAILY PO Last administered on at 09:08; Start 01/09/19 at 09:00 Fluticasone Propionate (Flonase) 2 spray DAILY NS Last administered on at 09:10; Start 01/09/19 at 09:30 Hydralazine HCl (Apresoline) 50 mg TID PO Last administered on 01/09/19at 18:06 ; Start 01/09/19 at 09:00 Insulin Glargine (Lantus) 7 units QHS SQ ; Start 01/09/19 at 21:00 Labetalol HCl (Trandate) 200 mg DAILY PO Last administered on 01/09/19at 18:06; Start 01/09/19 at 09:00 Pantoprazole Sodium (Protonix) 40 mg DAILYAC PO Last administered on 01/09/19at 09:07; Start 01/09/19 at 09:00 Vitamin B Complex/ Vitamin C ([place]-Abby) 1 tab DAILY PO Last administered on at 09:08; Start 01/09/19 at 09:00 Insulin Human Lispro (HumaLOG) 0-5 UNITS TIDWMEALS SQ ; Start 01/09/19 at 12:00 Dextrose (Dextrose 50%-Water Syringe) 12.5 gm PRN Q15MIN PRN IV SEE COMMENTS; Start 01/09/19 at 08:45 Sodium Chloride 1,000 ml @ 1,000 mls/hr Q1H PRN IV hypotension; Start 01/09/19 at 12:34; Stop 01/09/19 at 18:33; Status DC Albumin Human 200 ml @ 200 mls/hr 1X PRN PRN IV Hypotension Last administered on 01/09/19at 14:00; Start 01/09/19 at 12:45; Stop 01/09/19 at 18:44; Status DC Sodium Chloride 1,000 ml @ 400 mls/hr Q2H30M PRN IV PATENCY; Start 01/09/19 at 12:34; Stop 01/10/19 at 00:33; Status DC Info (PHARMACY MONITORING -- do not chart) 1 each PRN DAILY PRN MC SEE COMMENTS ; Start 01/09/19 at 12:45; Status UNV Info (PHARMACY MONITORING -- do not chart) 1 each PRN DAILY PRN MC SEE COMMENTS ; Start 01/09/19 at 12:45 Darbepoetin Yeison (Aranesp) 60 mcg WEEKLYHS SQ Last administered on 01/10/19at 06 :16; Start 01/09/19 at 21:00 Vancomycin HCl (Vanco Per Pharmacy) 1 each PRN DAILY PRN MC SEE COMMENTS Last administered on 01/09/19at 18:49; Start 01/09/19 at 17:45 Levofloxacin/ Dextrose (Levaquin Per Pharmacy) 1 each PRN DAILY PRN MC SEE COMMENTS; Start 01/09/19 at 17:45 Vancomycin HCl 1.5 gm/Sodium Chloride 500 ml @ 250 mls/hr 1X ONCE IV ; Start 01/09/19 at 18:30; Stop 01/09/19 at 20:29; Status Cancel Levofloxacin/ Dextrose 150 ml @ 100 mls/hr Q48H IV ; Start 01/09/19 at 19:00; Status Cancel Levofloxacin/ Dextrose 100 ml @ 100 mls/hr Q48H IV ; Start 01/10/19 at 23:00 Vancomycin HCl (Vancomycin Random Level) 1 each 1X ONCE MC ; Start 01/10/19 at 06:00; Stop 01/10/19 at 06:01; Status DC Sodium Chloride 1,000 ml @ 1,000 mls/hr Q1H PRN IV hypotension; Start 01/10/19 at 08:05; Stop 01/10/19 at 14:04 Diphenhydramine HCl (Benadryl) 25 mg 1X PRN PRN IV ITCHING; Start 01/10/19 at 08:15; Stop 01/11/19 at 08:14 Diphenhydramine HCl (Benadryl) 25 mg 1X PRN PRN IV ITCHING; Start 01/10/19 at 08:15; Stop 01/11/19 at 08:14 Sodium Chloride 1,000 ml @ 400 mls/hr Q2H30M PRN IV PATENCY; Start 01/10/19 at 08:05; Stop 01/10/19 at 20:04 Info (PHARMACY MONITORING -- do not chart) 1 each PRN DAILY PRN MC SEE COMMENTS ; Start 01/10/19 at 08:15; Status UNV Active Scripts Active Novolog (Insulin Aspart) 100 Unit/1 Ml Cartridge 5-10 Unit SQ TIDBFRMEAL 30 Days Proair Respiclick (Albuterol Sulfate) 90 Mcg Aer.pow.ba 1 Puff IH PRN Q6HRS PRN Culturelle (Lactobacillus Rhamnosus Gg) 1 Each Cap.sprink 1 Cap PO BID 30 Days Combivent Respimat Inhal (Ipratropium/Albuterol Sulfate) 4 Gm Aer.w.adap 2 Inh IH QID 30 Days Labetalol Hcl 200 Mg Tablet 1 Tab PO DAILY 30 Days Children's Aspirin (Aspirin) 81 Mg Tab.chew 81 Mg PO DAILYWBKFT 30 Days Reported Lantus (Insulin Glargine,Hum.rec.anlog) 100 Unit/1 Ml Vial 7 SQ HS Omeprazole 40 Mg Capsule.dr 40 Mg PO DAILY Hydrocodone-Apap 5-325 (Hydrocodone Bit/Acetaminophen) 1 Each Tablet 1 Tab PO Q6HRS PRN Hydralazine Hcl 50 Mg Tablet 1 Tab PO TID Gabapentin (Gabapentin) 100 Mg Capsule 200 Mg PO BID Cetirizine Hcl 10 Mg Tablet 1 Tab PO DAILY Tylenol (Acetaminophen) 325 Mg Tablet 2 Tab PO PRN Q6HRS PRN Clonidine Hcl 0.1 Mg Tablet 0.1 Mg PO BID Alendronate Sodium 70 Mg Tablet 70 Mg PO Q2WKS Flonase Allergy Relief (Fluticasone Propionate) 9.9 Ml [place].susp 2 Sprays NS DAILY Calcium 600 + Vit D 400 Caplet (Calcium Carbonate/Vitamin D3) 1 Each Tablet 1 Each PO DAILY Renvela (Sevelamer Carbonate) 800 Mg Tablet 2 Tab PO [id number] Norvasc (Amlodipine Besylate) 10 Mg Tablet 10 Mg PO DAILY Windy-Abby Rx Tablet (Vit B Cmplx 3/Fa/Vit C/Biotin) 1 Each Tablet 1 Each PO DAILY Vitals/I & O Vital Sign - Last 24 Hours 01/09/19 01/09/19 01/09/19 01/09/19 10:55 11:30 17:00 17:05 Temp 97.9 98.8 97.9 98.8 Pulse 86 82 Resp 20 16 B/P (MAP) 113/62 (79) 142/63 (89) Pulse Ox 94 100 96 O2 Delivery Nasal Cannula Nasal Cannula Nasal Cannula Nasal Cannula O2 Flow Rate 3.0 3.0 3.0 3.0 01/09/19 01/09/19 01/09/19 01/09/19 18:02 18:06 18:06 18:06 Temp 102.3 102.3 Pulse 103 103 103 103 Resp 16 B/P (MAP) 176/46 (89) 176/46 176/46 176/46 Pulse Ox 91 O2 Delivery Nasal Cannula O2 Flow Rate 3.0 01/09/19 01/09/19 01/09/19 01/09/19 18:06 18:07 19:21 19:35 Temp 99.5 99.5 Pulse 103 89 Resp 16 B/P (MAP) 176/46 131/37 (68) Pulse Ox 96 92 O2 Delivery Nasal Cannula Nasal Cannula Nasal Cannula O2 Flow Rate 3.0 3.0 01/09/19 01/09/19 01/09/19 01/09/19 20:10 21:00 21:00 23:10 Temp 98.1 98.1 Pulse 78 78 78 Resp 20 B/P (MAP) 135/37 135/37 135/37 (69) Pulse Ox 100 O2 Delivery Nasal Cannula Nasal Cannula O2 Flow Rate 3.0 3.0 01/10/19 01/10/19 03:09 07:00 Temp 97.7 98.2 97.7 98.2 Pulse 70 82 Resp 18 18 B/P (MAP) 153/45 (81) 140/56 (84) Pulse Ox 99 94 O2 Delivery Nasal Cannula Nasal Cannula O2 Flow Rate 3.0 3.0 Intake and Output 01/09/19 01/09/19 01/10/19 14:59 22:59 06:59 Intake Total 360 ml 120 ml 360 ml Output Total 0 ml Balance 360 ml 120 ml 360 ml ARELI MATIAS MD Jan 10, 2019 09:06
--- NOTE | 2019-01-10 09:27 | PDOC ---
PULMONARY PROGRESS NOTES Vitals Vital Signs Date Time Temp Pulse Resp B/P (MAP) Pulse Ox O2 Delivery O2 Flow Rate FiO2 01/10/19 07:00 98.2 82 18 140/56 (84) 94 Nasal Cannula 3.0 98.2 General: Alert, No acute distress HEENT: Other Lungs: Crackles Cardiovascular: S1, S2 Abdomen: Soft, Non-tender Extremities: No Edema Labs Laboratory Tests Test 01/08/19 21:46 01/08/19 21:55 01/09/19 00:01 01/09/19 04:30 Influenza Type A Antigen Negative (NEGATIVE) Influenza Type B Antigen Negative (NEGATIVE) White Blood Count 7.2 x10^3/uL (4.0-11.0) 7.9 x10^3/uL (4.0-11.0) Red Blood Count 3.27 x10^6/uL (3.50-5.40) 3.22 x10^6/uL (3.50-5.40) Hemoglobin 10.4 g/dL (12.0-15.5) 10.4 g/dL (12.0-15.5) Hematocrit 32.7 % (36.0-47.0) 32.1 % (36.0-47.0) Mean Corpuscular Volume 100 fL (79-100) 100 fL (79-100) Mean Corpuscular Hemoglobin 32 pg (25-35) 32 pg (25-35) Mean Corpuscular Hemoglobin Concent 32 g/dL (31-37) 33 g/dL (31-37) Red Cell Distribution Width 17.8 % (11.5-14.5) 17.8 % (11.5-14.5) Platelet Count 112 x10^3/uL (140-400) 104 x10^3/uL (140-400) Neutrophils (%) (Auto) 63 % (31-73) 65 % (31-73) Lymphocytes (%) (Auto) 23 % (24-48) 23 % (24-48) Monocytes (%) (Auto) 12 % (0-9) 11 % (0-9) Eosinophils (%) (Auto) 2 % (0-3) 1 % (0-3) Basophils (%) (Auto) 1 % (0-3) 1 % (0-3) Neutrophils # (Auto) 4.5 x10^3uL (1.8-7.7) 5.1 x10^3uL (1.8-7.7) Lymphocytes # (Auto) 1.6 x10^3/uL (1.0-4.8) 1.8 x10^3/uL (1.0-4.8) Monocytes # (Auto) 0.8 x10^3/uL (0.0-1.1) 0.9 x10^3/uL (0.0-1.1) Eosinophils # (Auto) 0.1 x10^3/uL (0.0-0.7) 0.1 x10^3/uL (0.0-0.7) Basophils # (Auto) 0.1 x10^3/uL (0.0-0.2) 0.0 x10^3/uL (0.0-0.2) Prothrombin Time 13.9 SEC (11.7-14.0) Prothromb Time International Ratio 1.1 (0.8-1.1) Sodium Level 142 mmol/L (136-145) 142 mmol/L (136-145) Potassium Level 3.6 mmol/L (3.5-5.1) 3.7 mmol/L (3.5-5.1) Chloride Level 103 mmol/L (98-107) 103 mmol/L (98-107) Carbon Dioxide Level 32 mmol/L (21-32) 28 mmol/L (21-32) Anion Gap 7 (6-14) 11 (6-14) Blood Urea Nitrogen 19 mg/dL (7-20) 20 mg/dL (7-20) Creatinine 3.6 mg/dL (0.6-1.0) 4.1 mg/dL (0.6-1.0) Estimated GFR (Cockcroft-Gault) 12.5 10.8 BUN/Creatinine Ratio 5 (6-20) 5 (6-20) Glucose Level 117 mg/dL (70-99) 114 mg/dL (70-99) Lactic Acid Level 0.7 mmol/L (0.4-2.0) Calcium Level 8.4 mg/dL (8.5-10.1) 8.1 mg/dL (8.5-10.1) Magnesium Level 1.8 mg/dL (1.8-2.4) Total Bilirubin 0.8 mg/dL (0.2-1.0) 0.7 mg/dL (0.2-1.0) Aspartate Amino Transf (AST/SGOT) 35 U/L (15-37) 32 U/L (15-37) Alanine Aminotransferase (ALT/SGPT) 15 U/L (14-59) 14 U/L (14-59) Alkaline Phosphatase 298 U/L (46-116) 281 U/L (46-116) Troponin I Quantitative 0.029 ng/mL (0.000-0.055) KD-Drr-Q-Type Natriuretic Peptide 16509 pg/mL (0-124) Total Protein 6.4 g/dL (6.4-8.2) 6.4 g/dL (6.4-8.2) Albumin 2.6 g/dL (3.4-5.0) 2.7 g/dL (3.4-5.0) Albumin/Globulin Ratio 0.7 (1.0-1.7) 0.7 (1.0-1.7) Glucose (Fingerstick) 125 mg/dL (70-99) Test 01/09/19 07:04 01/09/19 11:32 01/09/19 16:55 01/09/19 20:36 Glucose (Fingerstick) 96 mg/dL (70-99) 111 mg/dL (70-99) 96 mg/dL (70-99) 125 mg/dL (70-99) Test 01/10/19 06:30 01/10/19 06:58 Random Vancomycin Level 17.2 mcg/mL Glucose (Fingerstick) 87 mg/dL (70-99) Laboratory Tests Test 01/09/19 11:32 01/09/19 16:55 01/09/19 20:36 01/10/19 06:30 Glucose (Fingerstick) 111 mg/dL (70-99) 96 mg/dL (70-99) 125 mg/dL (70-99) Random Vancomycin Level 17.2 mcg/mL Test 01/10/19 06:58 Glucose (Fingerstick) 87 mg/dL (70-99) Medications Active Scripts Medications Dose Route/Sig Max Daily Dose Days Date Category Novolog (Insulin Aspart) 100 Unit/1 Ml Cartridge 5-10 Unit SQ TIDBFRMEAL 30 01/09/19 Rx Lantus (Insulin Glargine,Hum.rec.anlog) 100 Unit/1 Ml Vial 7 SQ HS 12/05/18 Reported Proair Respiclick (Albuterol Sulfate) 90 Mcg Aer.pow.ba 1 Puff IH PRN Q6HRS PRN 04/10/18 Rx Culturelle (Lactobacillus Rhamnosus Gg) 1 Each Cap.sprink 1 Cap PO BID 30 12/15/17 Rx Combivent Respimat Inhal (Ipratropium/Albuterol Sulfate) 4 Gm Aer.w.adap 2 Inh IH QID 30 09/02/17 Rx Labetalol Hcl 200 Mg Tablet 1 Tab PO DAILY 30 09/02/17 Rx Omeprazole 40 Mg Capsule.dr 40 Mg PO DAILY 09/01/17 Reported Hydrocodone-Apap 5-325 (Hydrocodone Bit/Acetaminophen) 1 Each Tablet 1 Tab PO Q6HRS PRN 09/01/17 Reported Hydralazine Hcl 50 Mg Tablet 1 Tab PO TID 04/08/17 Reported Gabapentin (Gabapentin) 100 Mg Capsule 200 Mg PO BID 04/08/17 Reported Cetirizine Hcl 10 Mg Tablet 1 Tab PO DAILY 10/29/16 Reported Tylenol (Acetaminophen) 325 Mg Tablet 2 Tab PO PRN Q6HRS PRN 10/29/16 Reported Clonidine Hcl 0.1 Mg Tablet 0.1 Mg PO BID 09/17/16 Reported Alendronate Sodium 70 Mg Tablet 70 Mg PO Q2WKS 09/17/16 Reported Flonase Allergy Relief (Fluticasone Propionate) 9.9 Ml [place].susp 2 Sprays NS DAILY 09/17/16 Reported Children's Aspirin (Aspirin) 81 Mg Tab.chew 81 Mg PO DAILYWBKFT 30 11/04/15 Rx Calcium 600 + Vit D 400 Caplet (Calcium Carbonate/Vitamin D3) 1 Each Tablet 1 Each PO DAILY 10/24/15 Reported Renvela (Sevelamer Carbonate) 800 Mg Tablet 2 Tab PO [id number] 12/21/14 Reported Norvasc (Amlodipine Besylate) 10 Mg Tablet 10 Mg PO DAILY 11/11/13 Reported Windy-Abby Rx Tablet (Vit B Cmplx 3/Fa/Vit C/Biotin) 1 Each Tablet 1 Each PO DAILY 11/11/13 Reported Impression . IMPRESSION: 1. Abnormal x-ray. 2. Acute hypoxemic respiratory failure. 3. Pneumonia. 4. End-stage renal disease, on hemodialysis. 5. History of mucus plugging. 6. Multiple other comorbidities. Plan . PT NOT SEEN NOT IN ROOM WILL CONTINUE THE SAME MAY NEED TO CONSIDER MOTOR VEHICLE LECTURER PREDNISONE USE FOR BOOP (BRONCHIOLITIS ORGANIZING PNEUMONIA) 1. Continue Levaquin and vancomycin. 2. Reviewed medication list. I do not think any of the medication is causing recurrent acute lung injury. 3. We will continue the above and make further recommendations depending on the patient's clinical response. TAMI RAMIREZ MD Jan 10, 2019 09:27
[2019-01-10] MEDS: HYDROcodone/APAP 5/325MG 1 TAB TABLET PO PRN ×2 (12:24→21:22)
[2019-01-10] MEDS: GABAPENTIN 100 MG CAPSULE. PO SCH ×2 (12:26→21:17)
[2019-01-10] MEDS: FOLIC/VIT B COMP W-C (RENAL) TABLET. PO SCH (12:27)
[2019-01-10] MEDS: CETIRIZINE HCL 10 MG TABLET. PO SCH (12:27)
[2019-01-10] MEDS: amLODIPine BESYLATE 10 MG TABLET PO SCH (12:27)
[2019-01-10] MEDS: FLUTICASONE 50MCG/NASAL SPRAY 16GM BOTTLE. NS SCH (12:27)
[2019-01-10] MEDS: ASPIRIN CHEWABLE 81 MG TABLET. PO SCH (12:27)
[2019-01-10] MEDS: CALCIUM CARB/VIT D3 500/200 TABLET. PO SCH (12:27)
--- NOTE | 2019-01-10 14:54 | PDOC ---
Renal-Progress Notes Subjective Notes Notes LESS SOB History of Present Illness Hx of present illness STABLE Vitals Vitals Vital Signs Date Time Temp Pulse Resp B/P (MAP) Pulse Ox O2 Delivery O2 Flow Rate FiO2 01/10/19 12:27 82 140/56 01/10/19 12:24 18 Nasal Cannula 3.0 01/10/19 07:00 98.2 94 98.2 Weight Weight [ ] I.O. Intake and Output Intake and Output 01/10/19 07:00 Intake Total 840 ml Output Total 0 ml Balance 840 ml Intake Oral 840 ml Output Urine Total 0 ml Labs Labs Laboratory Tests Test 01/09/19 16:55 01/09/19 20:36 01/10/19 06:30 01/10/19 06:58 Glucose (Fingerstick) 96 mg/dL (70-99) 125 mg/dL (70-99) 87 mg/dL (70-99) Random Vancomycin Level 17.2 mcg/mL Micro Micro Microbiology 01/08/19 Blood Culture - Preliminary, Resulted NO GROWTH AFTER 1 DAY Review of Systems Constitutional: yes: alert, oriented Ears/Nose/Throat: Yes: no symptom reported Eyes: Yes: no symptom reported Pulmonary: Yes dyspnea Cardiovascular: Yes no symptom reported Gastrointestional: Yes: no symptom reported Genitourinary: Yes: no symptom reported Musculoskeletal: Yes: no symptom reported Skin: Yes no symptom reported Psychiatric/Neurological: Yes: no symptom reported Endocrine: Yes: no symptom reported Physical Exam General Appearance: no apparent distress Skin: warm Respiratory: decreased breath sounds Heart: S1S2, RRR Abdomen: soft, bowel sounds present Genitourinary: bladder flat Extremities: pulses present Neurology: alert, oriented Musculoskeletal: Other Assessment Assessment IMP CHF-PROB CHRONIC AND ACUTE DIASTOLIC POSSIBLE PNEUMONIA ANEMIA DM II ESRD-MWF HTN PLAN HD TODAY UF MUCH TOLERATED ANTIBIOTICS SURPRISINGLY TOLERATED 3.3 LITERS YESTERDAY AND ANOTHER 3.0 LITERS TODAY WITH HD NEW TARGET WEIGHT ESTABLISHED DAKOTA ARIAS MD Jan 10, 2019 14:54
[2019-01-10 15:00] VITALS: BP 151/37
--- NOTE | 2019-01-10 16:11 | NUR ---
SW following pt. OT recommends Home health. Discussed with RN pt might benefit from HH as she is a frequent admit. Will continue to follow.
[2019-01-10] MEDS: LABETALOL HCL 200 MG TABLET PO SCH (16:32)
[2019-01-10] MEDS: predniSONE 20 MG TABLET PO SCH (18:37)
[2019-01-10] MEDS: VANCOMYCIN PER PHARMACY MC PRN (18:57)
--- NOTE | 2019-01-10 18:59 | NUR ---
Pharmacy Vancomycin Dosing Note S: Consulted to monitor and dose vancomycin started 01/09/19. O: ROBBIN LYNN is a 68 year old F with Pneumonia Other Antibiotics: levaquin LABS: Last BUN: 20 Last Creatinine: 4.1 Creatinine Clearance: On HD -- Last WBC: 7.9 Last Procalcitonin: Tmax (past 24 hours): 102.3 Microbiology: BLOOD: NGTD I/O: 840/0 Drug Levels: Last Random level: 17.2 on 01/10/19 at 0630 Last dose given 01/09/19 at 0105 Vancomycin Dosing: Dosing Weight: Actual Target Trough: 15-20 A: Based on: random level P: 1. Begin Vancomycin 500 mg IV after each HD 2. Follow up Random level as needed 3. Pharmacy will continue to monitor, follow and adjust therapy as needed. Anjali Eaton RPH, 01/10/19 [id number]
[2019-01-10 19:55] VITALS: BP 126/36
[2019-01-10] MEDS ORDERED: VANCOMYCIN 500 MG in IV NORMAL SALINE 100ML 100 ML IV SCH ×4 (20:00)
[2019-01-10] MEDS: INSULIN GLARGINE 300 UNITS/3 ML INSULN.PEN. SQ SCH (21:20)
[2019-01-10 23:57] VITALS: BP 135/46
[2019-01-11 03:49] VITALS: BP 145/46
[2019-01-11 07:15] VITALS: BP 141/70
[2019-01-11] MEDS: FLUTICASONE 50MCG/NASAL SPRAY 16GM BOTTLE. NS SCH (08:27)
[2019-01-11] MEDS: SEVELAMER CARBONATE 800 MG TABLET. PO SCH ×3 (08:27→17:45)
[2019-01-11] MEDS: LACTOBACILLUS RHAMNOSUS GG 1 CAPSULE. PO SCH ×2 (08:28→21:02)
[2019-01-11] MEDS: amLODIPine BESYLATE 10 MG TABLET PO SCH (08:28)
[2019-01-11] MEDS: CETIRIZINE HCL 10 MG TABLET. PO SCH (08:28)
[2019-01-11] MEDS: CALCIUM CARB/VIT D3 500/200 TABLET. PO SCH (08:28)
[2019-01-11] MEDS: FOLIC/VIT B COMP W-C (RENAL) TABLET. PO SCH (08:28)
[2019-01-11] MEDS: ASPIRIN CHEWABLE 81 MG TABLET. PO SCH (08:28)
[2019-01-11] MEDS: cloNIDine HCL 0.1 MG TABLET PO SCH ×2 (08:29→21:00)
[2019-01-11] MEDS: PANTOPRAZOLE 40 MG TABLET.DR. PO SCH (08:30)
[2019-01-11] MEDS: predniSONE 20 MG TABLET PO SCH (08:30)
[2019-01-11] MEDS: GABAPENTIN 100 MG CAPSULE. PO SCH ×2 (08:30→21:01)
[2019-01-11] MEDS: LABETALOL HCL 200 MG TABLET PO SCH (08:31)
--- NOTE | 2019-01-11 08:48 | NUR ---
KENNEDY consulted for home health eval due to frequent admission. Spoke with nurse navigator, January regarding pt and she will be meeting with pt to discuss home health services. Addendum: 01/12/19 at 1241 by ADINA BENAVIDES Spoke with RN and pt is discharging home with self care after HD.
--- NOTE | 2019-01-11 08:53 | PDOC ---
PROGRESS NOTES Subjective Subjective Patient feels better, breathing improved with more fluid off in dialysis. Objective Objective Vital Signs Date Time Temp Pulse Resp B/P (MAP) Pulse Ox O2 Delivery O2 Flow Rate FiO2 01/11/19 08:31 70 141/70 01/11/19 07:15 98.0 16 95 Nasal Cannula 3.0 98.0 Intake and Output 01/11/19 07:00 Intake Total 375 ml Output Total 0 ml Balance 375 ml Intake Oral 375 ml Output Urine Total 0 ml Physical Exam Abdomen: Normal bowel sounds, Soft, No tenderness Heart: Regular rate Extremities: No edema General: Alert, Oriented X3, No acute distress Lungs: Other (BS mildly decreased but otherwise CTA) Assessment Assessment Problems Medical Problems: (1) HAP (hospital-acquired pneumonia) Status: Acute Plan Plan of Care 1. Acute on chronic respiratory failure with possible BOOP - afebrile. Chest exam much improved, continue tx per Dr Kirk. 2. ESRD - 6 L fluid removed in dialysis past two days and now has lower dry weight. Patient feels breathing is much better. Continue dialysis per Dr Velasquez. 3. DM2 - glucose elevated today due to starting Prednisone yesterday PM. Will increase Lantus and follow. 4. HTN - had some diastolic hypotension yesterday but improved today. Continue her usual medications. Comment Review of Relevant I have reviewed the following items cosmo (where applicable) has been applied. Labs Laboratory Tests Test 01/09/19 11:32 01/09/19 16:55 01/09/19 20:36 01/10/19 06:30 Glucose (Fingerstick) 111 mg/dL (70-99) 96 mg/dL (70-99) 125 mg/dL (70-99) Random Vancomycin Level 17.2 mcg/mL Test 01/10/19 06:58 01/10/19 16:54 01/10/19 20:46 01/11/19 07:24 Glucose (Fingerstick) 87 mg/dL (70-99) 193 mg/dL (70-99) 172 mg/dL (70-99) 347 mg/dL (70-99) Laboratory Tests Test 01/10/19 16:54 01/10/19 20:46 01/11/19 07:24 Glucose (Fingerstick) 193 mg/dL (70-99) 172 mg/dL (70-99) 347 mg/dL (70-99) Microbiology 01/08/19 Blood Culture - Preliminary, Resulted NO GROWTH AFTER 2 DAYS Medications Current Medications Albuterol/ Ipratropium (Duoneb) 3 ml 1X ONCE NEB Last administered on at 21:28; Start 01/08/19 at 21:15; Stop 01/08/19 at 21:16; Status DC Cefepime HCl (Maxipime) 2 gm 1X ONCE IVP Last administered on 01/08/19at 23:10 ; Start 01/08/19 at 23:00; Stop 01/08/19 at 23:01; Status DC Vancomycin HCl (Vanco Per Pharmacy) 1 each 1X STAT [facility] ; Start 01/08/19 at 22:39 ; Stop 01/08/19 at 22:49; Status DC Levofloxacin/ Dextrose 150 ml @ 100 mls/hr 1X ONCE IV Last administered on at 23:15; Start 01/08/19 at 22:45; Stop 01/09/19 at 00:14; Status DC Vancomycin HCl 1.5 gm/Sodium Chloride 500 ml @ 250 mls/hr 1X ONCE IV Last administered on 01/09/19at 01:05; Start 01/08/19 at 23:00; Stop 01/09/19 at 00:59 ; Status DC Ondansetron HCl (Zofran) 4 mg PRN Q8HRS PRN IV NAUSEA/VOMITING; Start 01/08/19 at 23:15; Stop 01/09/19 at 23:14; Status DC Acetaminophen (Tylenol) 650 mg PRN Q4HRS PRN PO FEVER; Start 01/08/19 at 23:15 ; Stop 01/09/19 at 23:14; Status DC Nitroglycerin (Nitrostat) 0.4 mg PRN Q5MIN PRN SL CHEST PAIN; Start 01/08/19 at 23:15; Stop 01/09/19 at 23:14; Status DC Albuterol/ Ipratropium (Duoneb) 3 ml RTQID NEB Last administered on 01/09/19at 19:21; Start 01/09/19 at 08:00; Stop 01/10/19 at 07:59; Status DC Gabapentin (Neurontin) 200 mg BID PO Last administered on 01/11/19at 08:30; Start 01/09/19 at 09:00 Acetaminophen/ Hydrocodone Bitart (Lortab 5/325) 1 tab PRN Q6HRS PRN PO MODERATE-SEVERE PAIN Last administered on 01/10/19 21:22; Start 01/09/19 at 03: 30 Zolpidem Tartrate (Ambien) 5 mg PRN QHS PRN PO INSOMNIA; Start 01/09/19 at 08: 30 Acetaminophen (Tylenol) 650 mg PRN Q6HRS PRN PO MILD PAIN; Start 01/09/19 at 08 :45 Amlodipine Besylate (Norvasc) 10 mg DAILY PO Last administered on 01/11/19 08: 28; Start 01/09/19 at 09:00 Aspirin (Children'S Aspirin) 81 mg DAILYWBKFT PO Last administered on 08:28; Start 01/09/19 at 09:00 Cetirizine HCl (ZyrTEC) 10 mg DAILY PO Last administered on 01/11/19 08:28; Start 01/09/19 at 09:00 Clonidine HCl (Catapres) 0.1 mg BID PO Last administered on 01/11/19 08:29; Start 01/09/19 at 09:00 Lactobacillus Rhamnosus (Culturelle) 1 cap BID PO Last administered on 08:28; Start 01/09/19 at 09:00 Sevelamer Carbonate (Renvela) 1,600 mg [id number] PO Last administered on 08:27; Start 01/09/19 at 09:00 Non-Formulary Medication (Alendronate Sodium ) 70 mg Q2WKS PO ; Start 01/09/19 at 09:00; Status UNV Calcium/Vitamin D (Oscal D 500mg/ 200uts) 1 tab DAILY PO Last administered on 08:28; Start 01/09/19 at 09:00 Fluticasone Propionate (Flonase) 2 spray DAILY NS Last administered on 08:27; Start 01/09/19 at 09:30 Hydralazine HCl (Apresoline) 50 mg TID PO Last administered on 01/11/19 08:30 ; Start 01/09/19 at 09:00 Insulin Glargine (Lantus) 7 units QHS SQ Last administered on 01/10/19 21:20; Start 01/09/19 at 21:00 Labetalol HCl (Trandate) 200 mg DAILY PO Last administered on 01/11/19 08:31; Start 01/09/19 at 09:00 Pantoprazole Sodium (Protonix) 40 mg DAILYAC PO Last administered on 01/11/19 08:30; Start 01/09/19 at 09:00 Vitamin B Complex/ Vitamin C ([place]by) 1 tab DAILY PO Last administered on 08:28; Start 01/09/19 at 09:00 Insulin Human Lispro (HumaLOG) 0-5 UNITS TIDWMEALS SQ Last administered on 01/10at 18:40; Start 01/09/19 at 12:00 Dextrose (Dextrose 50%-Water Syringe) 12.5 gm PRN Q15MIN PRN IV SEE COMMENTS; Start 01/09/19 at 08:45 Sodium Chloride 1,000 ml @ 1,000 mls/hr Q1H PRN IV hypotension; Start 01/09/19 at 12:34; Stop 01/09/19 at 18:33; Status DC Albumin Human 200 ml @ 200 mls/hr 1X PRN PRN IV Hypotension Last administered on 01/09/19at 14:00; Start 01/09/19 at 12:45; Stop 01/09/19 at 18:44; Status DC Sodium Chloride 1,000 ml @ 400 mls/hr Q2H30M PRN IV PATENCY; Start 01/09/19 at 12:34; Stop 01/10/19 at 00:33; Status DC Info (PHARMACY MONITORING -- do not chart) 1 each PRN DAILY PRN MC SEE COMMENTS ; Start 01/09/19 at 12:45; Status UNV Info (PHARMACY MONITORING -- do not chart) 1 each PRN DAILY PRN MC SEE COMMENTS ; Start 01/09/19 at 12:45 Darbepoetin Yeison (Aranesp) 60 mcg WEEKLYHS SQ Last administered on 01/10/19at 06 :16; Start 01/09/19 at 21:00 Vancomycin HCl (Vanco Per Pharmacy) 1 each PRN DAILY PRN MC SEE COMMENTS Last administered on 01/10/19at 18:57; Start 01/09/19 at 17:45 Levofloxacin/ Dextrose (Levaquin Per Pharmacy) 1 each PRN DAILY PRN MC SEE COMMENTS; Start 01/09/19 at 17:45 Vancomycin HCl 1.5 gm/Sodium Chloride 500 ml @ 250 mls/hr 1X ONCE IV ; Start 01/09/19 at 18:30; Stop 01/09/19 at 20:29; Status Cancel Levofloxacin/ Dextrose 150 ml @ 100 mls/hr Q48H IV ; Start 01/09/19 at 19:00; Status Cancel Levofloxacin/ Dextrose 100 ml @ 100 mls/hr Q48H IV Last administered on at 23:27; Start 01/10/19 at 23:00 Vancomycin HCl (Vancomycin Random Level) 1 each 1X ONCE MC ; Start 01/10/19 at 06:00; Stop 01/10/19 at 06:01; Status DC Sodium Chloride 1,000 ml @ 1,000 mls/hr Q1H PRN IV hypotension; Start 01/10/19 at 08:05; Stop 01/10/19 at 14:04; Status DC Diphenhydramine HCl (Benadryl) 25 mg 1X PRN PRN IV ITCHING; Start 01/10/19 at 08:15; Stop 01/11/19 at 08:14; Status DC Diphenhydramine HCl (Benadryl) 25 mg 1X PRN PRN IV ITCHING; Start 01/10/19 at 08:15; Stop 01/11/19 at 08:14; Status DC Sodium Chloride 1,000 ml @ 400 mls/hr Q2H30M PRN IV PATENCY; Start 01/10/19 at 08:05; Stop 01/10/19 at 20:04; Status DC Info (PHARMACY MONITORING -- do not chart) 1 each PRN DAILY PRN MC SEE COMMENTS ; Start 01/10/19 at 08:15; Status UNV Prednisone (Prednisone) 30 mg DAILY PO Last administered on 01/11/19at 08:30; Start 01/10/19 at 17:15 Vancomycin HCl 500 mg/Sodium Chloride 100 ml @ 100 mls/hr QMWF IV ; Start 01/10 at 20:00; Status Cancel Vancomycin HCl 500 mg/Sodium Chloride 100 ml @ 100 mls/hr QMWF IV Last administered on 01/10/19at 21:23; Start 01/10/19 at 20:00 Active Scripts Active Novolog (Insulin Aspart) 100 Unit/1 Ml Cartridge 5-10 Unit SQ TIDBFRMEAL 30 Days Proair Respiclick (Albuterol Sulfate) 90 Mcg Aer.pow.ba 1 Puff IH PRN Q6HRS PRN Culturelle (Lactobacillus Rhamnosus Gg) 1 Each Cap.sprink 1 Cap PO BID 30 Days Combivent Respimat Inhal (Ipratropium/Albuterol Sulfate) 4 Gm Aer.w.adap 2 Inh IH QID 30 Days Labetalol Hcl 200 Mg Tablet 1 Tab PO DAILY 30 Days Children's Aspirin (Aspirin) 81 Mg Tab.chew 81 Mg PO DAILYWBKFT 30 Days Reported Lantus (Insulin Glargine,Hum.rec.anlog) 100 Unit/1 Ml Vial 7 SQ HS Omeprazole 40 Mg Capsule.dr 40 Mg PO DAILY Hydrocodone-Apap 5-325 (Hydrocodone Bit/Acetaminophen) 1 Each Tablet 1 Tab PO Q6HRS PRN Hydralazine Hcl 50 Mg Tablet 1 Tab PO TID Gabapentin (Gabapentin) 100 Mg Capsule 200 Mg PO BID Cetirizine Hcl 10 Mg Tablet 1 Tab PO DAILY Tylenol (Acetaminophen) 325 Mg Tablet 2 Tab PO PRN Q6HRS PRN Clonidine Hcl 0.1 Mg Tablet 0.1 Mg PO BID Alendronate Sodium 70 Mg Tablet 70 Mg PO Q2WKS Flonase Allergy Relief (Fluticasone Propionate) 9.9 Ml [place].susp 2 Sprays NS DAILY Calcium 600 + Vit D 400 Caplet (Calcium Carbonate/Vitamin D3) 1 Each Tablet 1 Each PO DAILY Renvela (Sevelamer Carbonate) 800 Mg Tablet 2 Tab PO [id number] Norvasc (Amlodipine Besylate) 10 Mg Tablet 10 Mg PO DAILY Windy-Abby Rx Tablet (Vit B Cmplx 3/Fa/Vit C/Biotin) 1 Each Tablet 1 Each PO DAILY Vitals/I & O Vital Sign - Last 24 Hours 01/10/19 01/10/19 01/10/19 01/10/19 12:24 12:27 13:24 15:00 Temp 98.8 98.8 Pulse 82 86 Resp 18 18 18 B/P (MAP) 140/56 151/37 (75) Pulse Ox 100 O2 Delivery Nasal Cannula Nasal Cannula O2 Flow Rate 3.0 3.0 01/10/19 01/10/19 01/10/19 01/10/19 16:32 16:32 19:55 20:00 Temp 97.5 97.5 Pulse 86 86 72 Resp 16 B/P (MAP) 151/37 151/37 126/36 (66) Pulse Ox 97 O2 Delivery Nasal Cannula Nasal Cannula O2 Flow Rate 3.0 3.0 01/10/19 01/10/19 01/10/19 01/10/19 21:18 21:18 21:22 22:22 B/P (MAP) 126/36 126/36 O2 Delivery Room Air Room Air 01/10/19 01/11/19 01/11/19 01/11/19 23:57 03:49 07:15 08:28 Temp 97.7 98.0 98.0 97.7 98.0 98.0 Pulse 72 74 70 70 Resp 16 16 16 B/P (MAP) 135/46 (75) 145/46 (79) 141/70 (93) 141/70 Pulse Ox 99 98 95 O2 Delivery Nasal Cannula Nasal Cannula Nasal Cannula O2 Flow Rate 3.0 3.0 3.0 01/11/19 01/11/19 01/11/19 08:29 08:30 08:31 Pulse 70 70 70 B/P (MAP) 141/70 141/70 141/70 Intake and Output 01/10/19 01/10/19 01/11/19 15:00 23:00 07:00 Intake Total 75 ml 300 ml Output Total 0 ml 0 ml 0 ml Balance 75 ml 300 ml 0 ml ARELI MATIAS MD Jan 11, 2019 08:53
[2019-01-11] MEDS: INSULIN LISPRO 300 UNITS/3 ML INSULN.PEN. SQ SCH ×3 (10:45→17:49)
[2019-01-11 11:02] VITALS: BP 134/62
--- NOTE | 2019-01-11 11:07 | PDOC ---
PULMONARY PROGRESS NOTES Subjective PT FEELS BETTER Vitals Vital Signs Date Time Temp Pulse Resp B/P (MAP) Pulse Ox O2 Delivery O2 Flow Rate FiO2 01/11/19 11:02 97.8 69 18 134/62 (86) 99 Nasal Cannula 3.0 97.8 ROS: No Nausea, No Chest Pain, No Abdominal Pain, No Increase Cough General: Alert, No acute distress Lungs: Crackles Cardiovascular: S1, S2 Abdomen: Soft, Non-tender Extremities: No Edema Labs Laboratory Tests Test 01/09/19 11:32 01/09/19 16:55 01/09/19 20:36 01/10/19 06:30 Glucose (Fingerstick) 111 mg/dL (70-99) 96 mg/dL (70-99) 125 mg/dL (70-99) Random Vancomycin Level 17.2 mcg/mL Test 01/10/19 06:58 01/10/19 16:54 01/10/19 20:46 01/11/19 07:24 Glucose (Fingerstick) 87 mg/dL (70-99) 193 mg/dL (70-99) 172 mg/dL (70-99) 347 mg/dL (70-99) Laboratory Tests Test 01/10/19 16:54 01/10/19 20:46 01/11/19 07:24 Glucose (Fingerstick) 193 mg/dL (70-99) 172 mg/dL (70-99) 347 mg/dL (70-99) Medications Active Scripts Medications Dose Route/Sig Max Daily Dose Days Date Category Novolog (Insulin Aspart) 100 Unit/1 Ml Cartridge 5-10 Unit SQ TIDBFRMEAL 30 01/09/19 Rx Lantus (Insulin Glargine,Hum.rec.anlog) 100 Unit/1 Ml Vial 7 SQ HS 12/05/18 Reported Proair Respiclick (Albuterol Sulfate) 90 Mcg Aer.pow.ba 1 Puff IH PRN Q6HRS PRN 04/10/18 Rx Culturelle (Lactobacillus Rhamnosus Gg) 1 Each Cap.sprink 1 Cap PO BID 30 12/15/17 Rx Combivent Respimat Inhal (Ipratropium/Albuterol Sulfate) 4 Gm Aer.w.adap 2 Inh IH QID 30 09/02/17 Rx Labetalol Hcl 200 Mg Tablet 1 Tab PO DAILY 30 09/02/17 Rx Omeprazole 40 Mg Capsule.dr 40 Mg PO DAILY 09/01/17 Reported Hydrocodone-Apap 5-325 (Hydrocodone Bit/Acetaminophen) 1 Each Tablet 1 Tab PO Q6HRS PRN 09/01/17 Reported Hydralazine Hcl 50 Mg Tablet 1 Tab PO TID 04/08/17 Reported Gabapentin (Gabapentin) 100 Mg Capsule 200 Mg PO BID 04/08/17 Reported Cetirizine Hcl 10 Mg Tablet 1 Tab PO DAILY 10/29/16 Reported Tylenol (Acetaminophen) 325 Mg Tablet 2 Tab PO PRN Q6HRS PRN 10/29/16 Reported Clonidine Hcl 0.1 Mg Tablet 0.1 Mg PO BID 09/17/16 Reported Alendronate Sodium 70 Mg Tablet 70 Mg PO Q2WKS 09/17/16 Reported Flonase Allergy Relief (Fluticasone Propionate) 9.9 Ml [place].susp 2 Sprays NS DAILY 09/17/16 Reported Children's Aspirin (Aspirin) 81 Mg Tab.chew 81 Mg PO DAILYWBKFT 30 11/04/15 Rx Calcium 600 + Vit D 400 Caplet (Calcium Carbonate/Vitamin D3) 1 Each Tablet 1 Each PO DAILY 10/24/15 Reported Renvela (Sevelamer Carbonate) 800 Mg Tablet 2 Tab PO [id number] 12/21/14 Reported Norvasc (Amlodipine Besylate) 10 Mg Tablet 10 Mg PO DAILY 11/11/13 Reported Windy-Abby Rx Tablet (Vit B Cmplx 3/Fa/Vit C/Biotin) 1 Each Tablet 1 Each PO DAILY 11/11/13 Reported Impression . IMPRESSION: 1. Abnormal x-ray. 2. Acute hypoxemic respiratory failure. 3. Pneumonia. 4. End-stage renal disease, on hemodialysis. 5. History of mucus plugging. 6. Multiple other comorbidities. 7. PRESUMPTIVE BOOP Plan . PREDNISONE 30MG TILL SEEN ME IN OFFICE IN 4 WEEKS WILL D/C ANTIBX OK TO D/C IN AM IF CONTINUE TO IMPROVE MAY NEED TO CONSIDER TACTICAL/MOBILE WATCH OFFICER PREDNISONE USE FOR BOOP (BRONCHIOLITIS ORGANIZING PNEUMONIA) TAMI RAMIREZ MD Jan 11, 2019 11:07
--- NOTE | 2019-01-11 12:19 | PDOC ---
Renal-Progress Notes Subjective Notes Notes LESS SOB History of Present Illness Hx of present illness BETTER Vitals Vitals Vital Signs Date Time Temp Pulse Resp B/P (MAP) Pulse Ox O2 Delivery O2 Flow Rate FiO2 01/11/19 11:02 97.8 69 18 134/62 (86) 99 Nasal Cannula 3.0 97.8 Weight Weight [ ] I.O. Intake and Output Intake and Output 01/11/19 07:00 Intake Total 375 ml Output Total 0 ml Balance 375 ml Intake Oral 375 ml Output Urine Total 0 ml Labs Labs Laboratory Tests Test 01/10/19 16:54 01/10/19 20:46 01/11/19 07:24 01/11/19 11:29 Glucose (Fingerstick) 193 mg/dL (70-99) 172 mg/dL (70-99) 347 mg/dL (70-99) 297 mg/dL (70-99) Micro Micro Microbiology 01/08/19 Blood Culture - Preliminary, Resulted NO GROWTH AFTER 2 DAYS Review of Systems Constitutional: yes: alert, oriented Ears/Nose/Throat: Yes: no symptom reported Eyes: Yes: no symptom reported Pulmonary: Yes dyspnea Cardiovascular: Yes no symptom reported Gastrointestional: Yes: no symptom reported Genitourinary: Yes: no symptom reported Musculoskeletal: Yes: no symptom reported Skin: Yes no symptom reported Psychiatric/Neurological: Yes: no symptom reported Endocrine: Yes: no symptom reported Physical Exam General Appearance: no apparent distress Skin: warm Respiratory: decreased breath sounds Heart: S1S2, RRR Abdomen: soft, bowel sounds present Genitourinary: bladder flat Extremities: pulses present Neurology: alert, oriented Musculoskeletal: Other Assessment Assessment IMP CHF-PROB CHRONIC AND ACUTE DIASTOLIC POSSIBLE PNEUMONIA ANEMIA DM II ESRD-MWF HTN PLAN HD TOMORROW ANTIBIOTICS NEW [employer] WEIGHT ESTABLISHED AT 54.2KG DAKOTA ARIAS MD Jan 11, 2019 12:18
[2019-01-11 14:21] VITALS: BP 141/55
[2019-01-11 19:57] VITALS: BP 135/38
[2019-01-11] MEDS ORDERED: INSULIN GLARGINE 300 UNITS/3 ML INSULN.PEN. SQ SCH (21:00)
[2019-01-11 23:05] VITALS: BP 132/49
[2019-01-12 03:16] VITALS: BP 138/52
[2019-01-12] MEDS: SEVELAMER CARBONATE 800 MG TABLET. PO SCH ×3 (06:26→17:11)
[2019-01-12] MEDS: HYDROcodone/APAP 5/325MG 1 TAB TABLET PO PRN (06:30)
[2019-01-12] MEDS ORDERED: IV NORMAL SALINE 1000ML BAG 1,000 ML IV PRN ×2 (07:08)
[2019-01-12] MEDS ORDERED: DIALYSIS PATIENT. MC PRN ×2 (07:15)
[2019-01-12] MEDS: INSULIN LISPRO 300 UNITS/3 ML INSULN.PEN. SQ SCH ×3 (08:00→17:24)
--- NOTE | 2019-01-12 08:52 | PDOC ---
PROGRESS NOTES Subjective Subjective Patient without complaint, feels ready to go home. Objective Objective Vital Signs Date Time Temp Pulse Resp B/P (MAP) Pulse Ox O2 Delivery O2 Flow Rate FiO2 01/12/19 06:30 20 Nasal Cannula 2.0 01/12/19 03:16 98.3 78 138/52 (80) 98 98.3 Intake and Output 01/12/19 07:00 Intake Total 1220 ml Balance 1220 ml Intake Oral 1220 ml Physical Exam Abdomen: Normal bowel sounds, Soft, No tenderness Heart: Regular rate Extremities: No edema General: Alert, Oriented X3, No acute distress Lungs: Clear to auscultation Assessment Assessment Problems Medical Problems: (1) HAP (hospital-acquired pneumonia) Status: Acute Plan Plan of Care 1. Acute on chronic respiratory failure with BOOP - breathing much improved. Home on Prednisone x [address] Kirk. Already has home O2. 2. ESRD with fluid overload - new lower dry weight now per Dr Velasquez. Continue dialysis as scheduled. 3. DM2 - glucose elevated due to prednisone, home on increased insulins. 4. HTN - controlled with her usual medications. Comment Review of Relevant I have reviewed the following items cosmo (where applicable) has been applied. Labs Laboratory Tests Test 01/10/19 16:54 01/10/19 20:46 01/11/19 07:24 01/11/19 11:29 Glucose (Fingerstick) 193 mg/dL (70-99) 172 mg/dL (70-99) 347 mg/dL (70-99) 297 mg/dL (70-99) Test 01/11/19 16:30 01/11/19 20:47 01/12/19 08:44 Glucose (Fingerstick) 209 mg/dL (70-99) 312 mg/dL (70-99) 161 mg/dL (70-99) Laboratory Tests Test 01/11/19 11:29 01/11/19 16:30 01/11/19 20:47 01/12/19 08:44 Glucose (Fingerstick) 297 mg/dL (70-99) 209 mg/dL (70-99) 312 mg/dL (70-99) 161 mg/dL (70-99) Microbiology 01/08/19 Blood Culture - Preliminary, Resulted NO GROWTH AFTER 3 DAYS Medications Current Medications Albuterol/ Ipratropium (Duoneb) 3 ml 1X ONCE NEB Last administered on at 21:28; Start 01/08/19 at 21:15; Stop 01/08/19 at 21:16; Status DC Cefepime HCl (Maxipime) 2 gm 1X ONCE IVP Last administered on 01/08/19at 23:10 ; Start 01/08/19 at 23:00; Stop 01/08/19 at 23:01; Status DC Vancomycin HCl (Vanco Per Pharmacy) 1 each 1X STAT MC ; Start 01/08/19 at 22:39 ; Stop 01/08/19 at 22:49; Status DC Levofloxacin/ Dextrose 150 ml @ 100 mls/hr 1X ONCE IV Last administered on at 23:15; Start 01/08/19 at 22:45; Stop 01/09/19 at 00:14; Status DC Vancomycin HCl 1.5 gm/Sodium Chloride 500 ml @ 250 mls/hr 1X ONCE IV Last administered on 01/09/19at 01:05; Start 01/08/19 at 23:00; Stop 01/09/19 at 00:59 ; Status DC Ondansetron HCl (Zofran) 4 mg PRN Q8HRS PRN IV NAUSEA/VOMITING; Start 01/08/19 at 23:15; Stop 01/09/19 at 23:14; Status DC Acetaminophen (Tylenol) 650 mg PRN Q4HRS PRN PO FEVER; Start 01/08/19 at 23:15 ; Stop 01/09/19 at 23:14; Status DC Nitroglycerin (Nitrostat) 0.4 mg PRN Q5MIN PRN SL CHEST PAIN; Start 01/08/19 at 23:15; Stop 01/09/19 at 23:14; Status DC Albuterol/ Ipratropium (Duoneb) 3 ml RTQID NEB Last administered on 01/09/19at 19:21; Start 01/09/19 at 08:00; Stop 01/10/19 at 07:59; Status DC Gabapentin (Neurontin) 200 mg BID PO Last administered on 01/11/19at 21:01; Start 01/09/19 at 09:00 Acetaminophen/ Hydrocodone Bitart (Lortab 5/325) 1 tab PRN Q6HRS PRN PO MODERATE-SEVERE PAIN Last administered on 01/12/19 06:30; Start 01/09/19 at 03: 30 Zolpidem Tartrate (Ambien) 5 mg PRN QHS PRN PO INSOMNIA; Start 01/09/19 at 08: 30 Acetaminophen (Tylenol) 650 mg PRN Q6HRS PRN PO MILD PAIN; Start 01/09/19 at 08 :45 Amlodipine Besylate (Norvasc) 10 mg DAILY PO Last administered on 01/11/19 08: 28; Start 01/09/19 at 09:00 Aspirin (Children'S Aspirin) 81 mg DAILYWBKFT PO Last administered on 08:28; Start 01/09/19 at 09:00 Cetirizine HCl (ZyrTEC) 10 mg DAILY PO Last administered on 01/11/19 08:28; Start 01/09/19 at 09:00 Clonidine HCl (Catapres) 0.1 mg BID PO Last administered on 01/11/19 21:00; Start 01/09/19 at 09:00 Lactobacillus Rhamnosus (Culturelle) 1 cap BID PO Last administered on 21:02; Start 01/09/19 at 09:00 Sevelamer Carbonate (Renvela) 1,600 mg [id number] PO Last administered on 06:26; Start 01/09/19 at 09:00 Non-Formulary Medication (Alendronate Sodium ) 70 mg Q2WKS PO ; Start 01/09/19 at 09:00; Status UNV Calcium/Vitamin D (Oscal D 500mg/ 200uts) 1 tab DAILY PO Last administered on 08:28; Start 01/09/19 at 09:00 Fluticasone Propionate (Flonase) 2 spray DAILY NS Last administered on 08:27; Start 01/09/19 at 09:30 Hydralazine HCl (Apresoline) 50 mg TID PO Last administered on 01/11/19 21:02 ; Start 01/09/19 at 09:00 Insulin Glargine (Lantus) 7 units QHS SQ Last administered on 01/10/19 21:20; Start 01/09/19 at 21:00; Stop 01/11/19 at 08:42; Status DC Labetalol HCl (Trandate) 200 mg DAILY PO Last administered on 01/11/19at 08:31; Start 01/09/19 at 09:00 Pantoprazole Sodium (Protonix) 40 mg DAILYAC PO Last administered on 01/11/19at 08:30; Start 01/09/19 at 09:00 Vitamin B Complex/ Vitamin C ([place]indy-Abby) 1 tab DAILY PO Last administered on at 08:28; Start 01/09/19 at 09:00 Insulin Human Lispro (HumaLOG) 0-5 UNITS TIDWMEALS SQ Last administered on 01/11at 17:49; Start 01/09/19 at 12:00 Dextrose (Dextrose 50%-Water Syringe) 12.5 gm PRN Q15MIN PRN IV SEE COMMENTS; Start 01/09/19 at 08:45 Sodium Chloride 1,000 ml @ 1,000 mls/hr Q1H PRN IV hypotension; Start 01/09/19 at 12:34; Stop 01/09/19 at 18:33; Status DC Albumin Human 200 ml @ 200 mls/hr 1X PRN PRN IV Hypotension Last administered on 01/09/19at 14:00; Start 01/09/19 at 12:45; Stop 01/09/19 at 18:44; Status DC Sodium Chloride 1,000 ml @ 400 mls/hr Q2H30M PRN IV PATENCY; Start 01/09/19 at 12:34; Stop 01/10/19 at 00:33; Status DC Info (PHARMACY MONITORING -- do not chart) 1 each PRN DAILY PRN MC SEE COMMENTS ; Start 01/09/19 at 12:45; Status UNV Info (PHARMACY MONITORING -- do not chart) 1 each PRN DAILY PRN MC SEE COMMENTS ; Start 01/09/19 at 12:45 Darbepoetin Yeison (Aranesp) 60 mcg WEEKLYHS SQ Last administered on 01/10/19at 06 :16; Start 01/09/19 at 21:00 Vancomycin HCl (Vanco Per Pharmacy) 1 each PRN DAILY PRN MC SEE COMMENTS Last administered on 01/10/19at 18:57; Start 01/09/19 at 17:45 Levofloxacin/ Dextrose (Levaquin Per Pharmacy) 1 each PRN DAILY PRN MC SEE COMMENTS; Start 01/09/19 at 17:45 Vancomycin HCl 1.5 gm/Sodium Chloride 500 ml @ 250 mls/hr 1X ONCE IV ; Start 01/09/19 at 18:30; Stop 01/09/19 at 20:29; Status Cancel Levofloxacin/ Dextrose 150 ml @ 100 mls/hr Q48H IV ; Start 01/09/19 at 19:00; Status Cancel Levofloxacin/ Dextrose 100 ml @ 100 mls/hr Q48H IV Last administered on at 23:27; Start 01/10/19 at 23:00 Vancomycin HCl (Vancomycin Random Level) 1 each 1X ONCE MC ; Start 01/10/19 at 06:00; Stop 01/10/19 at 06:01; Status DC Sodium Chloride 1,000 ml @ 1,000 mls/hr Q1H PRN IV hypotension; Start 01/10/19 at 08:05; Stop 01/10/19 at 14:04; Status DC Diphenhydramine HCl (Benadryl) 25 mg 1X PRN PRN IV ITCHING; Start 01/10/19 at 08:15; Stop 01/11/19 at 08:14; Status DC Diphenhydramine HCl (Benadryl) 25 mg 1X PRN PRN IV ITCHING; Start 01/10/19 at 08:15; Stop 01/11/19 at 08:14; Status DC Sodium Chloride 1,000 ml @ 400 mls/hr Q2H30M PRN IV PATENCY; Start 01/10/19 at 08:05; Stop 01/10/19 at 20:04; Status DC Info (PHARMACY MONITORING -- do not chart) 1 each PRN DAILY PRN MC SEE COMMENTS ; Start 01/10/19 at 08:15; Status UNV Prednisone (Prednisone) 30 mg DAILY PO Last administered on 01/11/19at 08:30; Start 01/10/19 at 17:15 Vancomycin HCl 500 mg/Sodium Chloride 100 ml @ 100 mls/hr QMWF IV ; Start 01/10 at 20:00; Status Cancel Vancomycin HCl 500 mg/Sodium Chloride 100 ml @ 100 mls/hr QMWF IV Last administered on 01/10/19at 21:23; Start 01/10/19 at 20:00 Insulin Glargine (Lantus) 15 units QHS SQ Last administered on 01/11/19at 21:05 ; Start 01/11/19 at 21:00 Sodium Chloride 1,000 ml @ 1,000 mls/hr Q1H PRN IV hypotension; Start 01/12/19 at 07:08; Stop 01/12/19 at 13:07 Sodium Chloride 1,000 ml @ 400 mls/hr Q2H30M PRN IV PATENCY; Start 01/12/19 at 07:08; Stop 01/12/19 at 19:07 Info (PHARMACY MONITORING -- do not chart) 1 each PRN DAILY PRN MC SEE COMMENTS ; Start 01/12/19 at 07:15; Status UNV Info (PHARMACY MONITORING -- do not chart) 1 each PRN DAILY PRN MC SEE COMMENTS ; Start 01/12/19 at 07:15 Active Scripts Active Novolog (Insulin Aspart) 100 Unit/1 Ml Cartridge 5-10 Unit SQ TIDBFRMEAL 30 Days Proair Respiclick (Albuterol Sulfate) 90 Mcg Aer.pow.ba 1 Puff IH PRN Q6HRS PRN Culturelle (Lactobacillus Rhamnosus Gg) 1 Each Cap.sprink 1 Cap PO BID 30 Days Combivent Respimat Inhal (Ipratropium/Albuterol Sulfate) 4 Gm Aer.w.adap 2 Inh IH QID 30 Days Labetalol Hcl 200 Mg Tablet 1 Tab PO DAILY 30 Days Children's Aspirin (Aspirin) 81 Mg Tab.chew 81 Mg PO DAILYWBKFT 30 Days Reported Lantus (Insulin Glargine,Hum.rec.anlog) 100 Unit/1 Ml Vial 7 SQ HS Omeprazole 40 Mg Capsule.dr 40 Mg PO DAILY Hydrocodone-Apap 5-325 (Hydrocodone Bit/Acetaminophen) 1 Each Tablet 1 Tab PO Q6HRS PRN Hydralazine Hcl 50 Mg Tablet 1 Tab PO TID Gabapentin (Gabapentin) 100 Mg Capsule 200 Mg PO BID Cetirizine Hcl 10 Mg Tablet 1 Tab PO DAILY Tylenol (Acetaminophen) 325 Mg Tablet 2 Tab PO PRN Q6HRS PRN Clonidine Hcl 0.1 Mg Tablet 0.1 Mg PO BID Alendronate Sodium 70 Mg Tablet 70 Mg PO Q2WKS Flonase Allergy Relief (Fluticasone Propionate) 9.9 Ml [place].susp 2 Sprays NS DAILY Calcium 600 + Vit D 400 Caplet (Calcium Carbonate/Vitamin D3) 1 Each Tablet 1 Each PO DAILY Renvela (Sevelamer Carbonate) 800 Mg Tablet 2 Tab PO [id number] Norvasc (Amlodipine Besylate) 10 Mg Tablet 10 Mg PO DAILY Windy-Abby Rx Tablet (Vit B Cmplx 3/Fa/Vit C/Biotin) 1 Each Tablet 1 Each PO DAILY Vitals/I & O Vital Sign - Last 24 Hours 01/11/19 01/11/19 01/11/19 01/11/19 11:02 14:06 14:21 19:53 Temp 97.8 97.4 97.8 97.4 Pulse 69 70 69 Resp 18 18 B/P (MAP) 134/62 (86) 141/55 141/55 (83) Pulse Ox 99 100 O2 Delivery Nasal Cannula Nasal Cannula Nasal Cannula O2 Flow Rate 3.0 3.0 3.0 01/11/19 01/11/19 01/11/19 01/11/19 19:57 21:00 21:02 23:05 Temp 97.9 98.0 97.9 98.0 Pulse 75 75 75 79 Resp 20 20 B/P (MAP) 135/38 (70) 135/45 135/45 132/49 (76) Pulse Ox 98 98 O2 Delivery Nasal Cannula Nasal Cannula O2 Flow Rate 2.0 3.0 01/12/19 01/12/19 03:16 06:30 Temp 98.3 98.3 Pulse 78 Resp 18 20 B/P (MAP) 138/52 (80) Pulse Ox 98 O2 Delivery Nasal Cannula Nasal Cannula O2 Flow Rate 3.0 2.0 Intake and Output 01/11/19 01/11/19 01/12/19 15:00 23:00 07:00 Intake Total 720 ml 240 ml 260 ml Balance 720 ml 240 ml 260 ml ARELI MATIAS MD Jan 12, 2019 08:52
[2019-01-12] MEDS ORDERED: INSU100V8 SQ (08:57)
[2019-01-12] MEDS ORDERED: INSU100C4 SQ (08:57)
[2019-01-12] MEDS ORDERED: PRED20TA PO (08:57)
--- NOTE | 2019-01-12 09:35 | PDOC ---
PULMONARY PROGRESS NOTES Subjective PT FEELS BETTER Vitals Vital Signs Date Time Temp Pulse Resp B/P (MAP) Pulse Ox O2 Delivery O2 Flow Rate FiO2 01/12/19 06:30 20 Nasal Cannula 2.0 01/12/19 03:16 98.3 78 138/52 (80) 98 98.3 ROS: No Nausea, No Chest Pain, No Abdominal Pain, No Increase Cough General: Alert, No acute distress Lungs: Crackles Cardiovascular: S1, S2 Abdomen: Soft, Non-tender Extremities: No Edema Labs Laboratory Tests Test 01/10/19 16:54 01/10/19 20:46 01/11/19 07:24 01/11/19 11:29 Glucose (Fingerstick) 193 mg/dL (70-99) 172 mg/dL (70-99) 347 mg/dL (70-99) 297 mg/dL (70-99) Test 01/11/19 16:30 01/11/19 20:47 01/12/19 08:44 Glucose (Fingerstick) 209 mg/dL (70-99) 312 mg/dL (70-99) 161 mg/dL (70-99) Laboratory Tests Test 01/11/19 11:29 01/11/19 16:30 01/11/19 20:47 01/12/19 08:44 Glucose (Fingerstick) 297 mg/dL (70-99) 209 mg/dL (70-99) 312 mg/dL (70-99) 161 mg/dL (70-99) Medications Active Scripts Medications Dose Route/Sig Max Daily Dose Days Date Category Novolog (Insulin Aspart) 100 Unit/1 Ml Cartridge 5-10 Unit SQ TIDBFRMEAL 30 01/09/19 Rx Lantus (Insulin Glargine,Hum.rec.anlog) 100 Unit/1 Ml Vial 7 SQ HS 12/05/18 Reported Proair Respiclick (Albuterol Sulfate) 90 Mcg Aer.pow.ba 1 Puff IH PRN Q6HRS PRN 04/10/18 Rx Culturelle (Lactobacillus Rhamnosus Gg) 1 Each Cap.sprink 1 Cap PO BID 30 12/15/17 Rx Combivent Respimat Inhal (Ipratropium/Albuterol Sulfate) 4 Gm Aer.w.adap 2 Inh IH QID 30 09/02/17 Rx Labetalol Hcl 200 Mg Tablet 1 Tab PO DAILY 30 09/02/17 Rx Omeprazole 40 Mg Capsule.dr 40 Mg PO DAILY 09/01/17 Reported Hydrocodone-Apap 5-325 (Hydrocodone Bit/Acetaminophen) 1 Each Tablet 1 Tab PO Q6HRS PRN 09/01/17 Reported Hydralazine Hcl 50 Mg Tablet 1 Tab PO TID 04/08/17 Reported Gabapentin (Gabapentin) 100 Mg Capsule 200 Mg PO BID 04/08/17 Reported Cetirizine Hcl 10 Mg Tablet 1 Tab PO DAILY 10/29/16 Reported Tylenol (Acetaminophen) 325 Mg Tablet 2 Tab PO PRN Q6HRS PRN 10/29/16 Reported Clonidine Hcl 0.1 Mg Tablet 0.1 Mg PO BID 09/17/16 Reported Alendronate Sodium 70 Mg Tablet 70 Mg PO Q2WKS 09/17/16 Reported Flonase Allergy Relief (Fluticasone Propionate) 9.9 Ml [place].susp 2 Sprays NS DAILY 09/17/16 Reported Children's Aspirin (Aspirin) 81 Mg Tab.chew 81 Mg PO DAILYWBKFT 30 11/04/15 Rx Calcium 600 + Vit D 400 Caplet (Calcium Carbonate/Vitamin D3) 1 Each Tablet 1 Each PO DAILY 10/24/15 Reported Renvela (Sevelamer Carbonate) 800 Mg Tablet 2 Tab PO [id number] 12/21/14 Reported Norvasc (Amlodipine Besylate) 10 Mg Tablet 10 Mg PO DAILY 11/11/13 Reported Windy-Abby Rx Tablet (Vit B Cmplx 3/Fa/Vit C/Biotin) 1 Each Tablet 1 Each PO DAILY 11/11/13 Reported Impression . IMPRESSION: 1. Abnormal x-ray. 2. Acute hypoxemic respiratory failure. 3. Pneumonia. 4. End-stage renal disease, on hemodialysis. 5. History of mucus plugging. 6. Multiple other comorbidities. 7. PRESUMPTIVE BOOP Plan . PREDNISONE 30MG TILL SEEN ME IN OFFICE IN 4 WEEKS WILL D/C ANTIBX TAMI RAMIREZ MD Jan 12, 2019 09:35
--- NOTE | 2019-01-12 12:03 | PDOC ---
Renal-Progress Notes Subjective Notes Notes FEELS BETTER History of Present Illness Hx of present illness IMPROVED Vitals Vitals Vital Signs Date Time Temp Pulse Resp B/P (MAP) Pulse Ox O2 Delivery O2 Flow Rate FiO2 01/12/19 06:30 20 Nasal Cannula 2.0 01/12/19 03:16 98.3 78 138/52 (80) 98 98.3 Weight Weight [ ] I.O. Intake and Output Intake and Output 01/12/19 06:59 Intake Total 1220 ml Balance 1220 ml Intake Oral 1220 ml Labs Labs Laboratory Tests Test 01/11/19 16:30 01/11/19 20:47 01/12/19 08:44 Glucose (Fingerstick) 209 mg/dL (70-99) 312 mg/dL (70-99) 161 mg/dL (70-99) Micro Micro Microbiology 01/08/19 Blood Culture - Preliminary, Resulted NO GROWTH AFTER 3 DAYS Review of Systems Constitutional: yes: alert, oriented Ears/Nose/Throat: Yes: no symptom reported Eyes: Yes: no symptom reported Pulmonary: Yes dyspnea Cardiovascular: Yes no symptom reported Gastrointestional: Yes: no symptom reported Genitourinary: Yes: no symptom reported Musculoskeletal: Yes: no symptom reported Skin: Yes no symptom reported Psychiatric/Neurological: Yes: no symptom reported Endocrine: Yes: no symptom reported Physical Exam General Appearance: no apparent distress Skin: warm Respiratory: decreased breath sounds Heart: S1S2, RRR Abdomen: soft, bowel sounds present Genitourinary: bladder flat Extremities: pulses present Neurology: alert, oriented Musculoskeletal: Other Assessment Assessment IMP CHF-PROB CHRONIC AND ACUTE DIASTOLIC POSSIBLE PNEUMONIA ANEMIA DM II ESRD-MWF HTN PLAN HD TODAY UF TO DW NEW [facility] WEIGHT ESTABLISHED AT 54.2KG D/C PLANS NOTED DAKOTA ARIAS MD Jan 12, 2019 12:03
[2019-01-12] MEDS: GABAPENTIN 100 MG CAPSULE. PO SCH (12:54)
[2019-01-12] MEDS: FOLIC/VIT B COMP W-C (RENAL) TABLET. PO SCH (12:54)
[2019-01-12] MEDS: LACTOBACILLUS RHAMNOSUS GG 1 CAPSULE. PO SCH (12:55)
[2019-01-12] MEDS: amLODIPine BESYLATE 10 MG TABLET PO SCH (12:55)
[2019-01-12] MEDS: PANTOPRAZOLE 40 MG TABLET.DR. PO SCH (12:55)
[2019-01-12] MEDS: ASPIRIN CHEWABLE 81 MG TABLET. PO SCH (12:55)
[2019-01-12] MEDS: CALCIUM CARB/VIT D3 500/200 TABLET. PO SCH (12:56)
[2019-01-12] MEDS: cloNIDine HCL 0.1 MG TABLET PO SCH (12:56)
[2019-01-12] MEDS: CETIRIZINE HCL 10 MG TABLET. PO SCH (12:56)
[2019-01-12] MEDS: predniSONE 20 MG TABLET PO SCH (12:57)
[2019-01-12] MEDS: LABETALOL HCL 200 MG TABLET PO SCH (12:58)
[2019-01-12] MEDS: FLUTICASONE 50MCG/NASAL SPRAY 16GM BOTTLE. NS SCH (12:58)
[2019-01-12 15:00] VITALS: BP 127/56
--- NOTE | 2019-01-12 18:15 | NUR ---
Patient discharged to home. Discharge instructions, medications, and follow up appointments discussed with patient. Patient verbalized understanding. IV discontinued. Discharge papers and prescription given to patient. Patient assisted out in wheelchair with staff at this time. All belongings with patient. Patients daughter here to pick her up
--- NOTE | 2019-01-12 19:16 | DS ---
DATE OF DISCHARGE: 01/12/2019 CHIEF COMPLAINT: Fever and shortness of breath. HISTORY OF PRESENT ILLNESS: The patient is a 68-year-old female who is a dialysis patient. She was at dialysis on the day of admission when she was found to have a fever of 101. She had not been aware of the fever, but had noticed increasing cough and shortness of breath at home. She completed her dialysis treatment and then presented to the Emergency Room. Initial evaluation there included a chest x-ray, which showed developing infiltrates and fluid overload. Her BNP was also markedly elevated at over 22,000. She was started on broad spectrum antibiotics and admitted for further care. HOSPITAL COURSE: The patient was seen in consultation by Dr. Velasquez and Dr. Kirk. Her fever quickly resolved and did not recur. Blood cultures remained negative. She was started on broad spectrum antibiotics for reoccurrence of her healthcare-associated pneumonia. Hypoxia was well controlled with oxygen per nasal cannula. The patient had evidence of significant fluid overload on chest x-ray and lab at admission and reported that she had been feeling "puffy" and swollen. Dr. Velasquez ordered an extra dialysis treatment on the day after admission and 3 liters of fluid was removed from the patient. She underwent her normal dialysis treatment the next day with removal of another 3 liters of fluid. Her dry weight has been adjusted downward by Dr. Vleasquez and this will be communicated to the outpatient dialysis center. The patient feels that her breathing is much improved with these changes. Dr. Kirk has started the patient on prednisone 30 mg p.o. daily for treatment of possible BOOP. Consequently, her blood sugars have been significantly elevated. Her insulins have been increased and she is advised to continue to increase her insulin at home until she achieves better blood sugar control. The patient has hypertension, which is well controlled with her usual medication. She has chronic back pain, which is stable with hydrocodone as needed. The patient is at her baseline level of mobility. She will be discharged to home today after dialysis treatment. FINAL DIAGNOSES: 1. Acute on chronic respiratory failure. 2. Healthcare-associated pneumonia. 3. Bronchiolitis obliterans with organizing pneumonia. 4. End-stage renal disease, on dialysis. 5. Diabetes mellitus type 2, insulin-dependent. 6. Hypertension. 7. Chronic back pain. DISCHARGE MEDICATIONS: Remain the same as at admission with the addition of prednisone 30 mg daily, Lantus has been increased to 20 units and the patient is advised to increase her NovoLog sliding scale as needed to control her blood sugars. FOLLOWUP: Follow up is with Dr. Banuelos as needed. Follow up with Dr. Kirk in 4 weeks. ARELI BANUELOS MD DR: EVONNE/ronaldo JOB#: [id number] / [id number] NATALIED
[2019-01-12] MEDS ORDERED: INSULIN GLARGINE 300 UNITS/3 ML INSULN.PEN. SQ SCH (21:00)
== END 2019-01-12 18:10 | disposition home or self-care (01) | DRG 871 ==
LOC: ER 20:51 → 6 SOUTH 22:41
PROVIDERS: ADMIT Family Medicine; ATTEND Family Medicine
PROC: 5A1D70Z Performance of Urinary Filtration, Intermittent, Less than 6 Hours Per Day (ICD-10-PCS; principal; 2019-01-09)
PROC: 5A1D70Z Performance of Urinary Filtration, Intermittent, Less than 6 Hours Per Day (ICD-10-PCS; 2019-01-10)
PROC: 5A1D70Z Performance of Urinary Filtration, Intermittent, Less than 6 Hours Per Day (ICD-10-PCS; 2019-01-12)
DX: A41.9 Sepsis, unspecified organism (principal); J18.9 Pneumonia, unspecified organism; J96.21 Acute and chronic respiratory failure with hypoxia; N18.6 End stage renal disease; I50.33 Acute on chronic diastolic (congestive) heart failure; I13.2 Hypertensive heart and chronic kidney disease with heart failure and with stage 5 chronic kidney disease, or end stage renal disease; E11.22 Type 2 diabetes mellitus with diabetic chronic kidney disease; Y95 Nosocomial condition; G89.29 Other chronic pain; M81.0 Age-related osteoporosis without current pathological fracture; M19.90 Unspecified osteoarthritis, unspecified site; I25.10 Atherosclerotic heart disease of native coronary artery without angina pectoris; E78.5 Hyperlipidemia, unspecified; E11.42 Type 2 diabetes mellitus with diabetic polyneuropathy; K21.9 Gastro-esophageal reflux disease without esophagitis; F32.9 Major depressive disorder, single episode, unspecified; D64.9 Anemia, unspecified; J84.89 Other specified interstitial pulmonary diseases; Z99.2 Dependence on renal dialysis; Z90.710 Acquired absence of both cervix and uterus; Z98.51 Tubal ligation status; Z99.81 Dependence on supplemental oxygen; Z79.4 Long term (current) use of insulin; Z79.899 Other long term (current) drug therapy; Z83.3 Family history of diabetes mellitus; Z82.49 Family history of ischemic heart disease and other diseases of the circulatory system; Z82.3 Family history of stroke; Z86.73 Personal history of transient ischemic attack (TIA), and cerebral infarction without residual deficits
CPT/HCPCS: 36415; 71046; 80053; 80202; 82962; 83605; 83735; 83880; 84484; 85025; 85610; 87040; 87804; 93005; 94640; 96365; 96375; J0692; J0881; J1815; J1956; J3370; J7040; J7512; J7620; P9046; 97530; 97535; 99285-25

== ENCOUNTER 2019-02-10 16:13 | Emergency (ER) | payer OTHER ==
[~2019-02-10] VITALS: Ht 157.5 cm; Wt 54.4 kg
--- NOTE | 2019-02-10 16:29 | PHYS DOC ---
Past Medical History Past Medical History: Bronchitis, COPD, Diabetes-Type II, Hypertension, P neumonia, Renal Failure, Other Additional Past Medical Histor: c diff,drop foot syndrome Past Surgical History: , Hysterectomy, Tonsillectomy, Tubal ligation, Other Additional Past Surgical Histo: bilat rotator cuff;dialysis shunt left forearm,L ANKLE ORIF Alcohol Use: None Drug Use: None Adult General Chief Complaint Chief Complaint: ANKLE PROBLEM HPI HPI Patient is a 68 year old female with a history of hypertension, COPD, renal failure, who presents to the ED today complaining of moderate pain to the left lateral ankle that began last night. Patient denies any known injury. States the pain is worse on touching the area, she states she has tried hydrocodone as well as gabapentin with no relief. Review of Systems Review of Systems Constitutional: Denies fever or chills [] Musculoskeletal: Reports left ankle pain Integument: Denies rash or skin lesions [] Neurologic: Denies headache, focal weakness or sensory changes [] All other systems were reviewed and found to be within normal limits, except as documented in this note. Current Medications Current Medications Current Medications Medications (Trade) Dose Ordered Sig/Bill Start Time Stop Time Status Last Admin Dose Admin Morphine Sulfate (Morphine Sulfate) 5 mg 1X ONCE 02/10/19 16:30 02/10/19 16:31 DC 02/10/19 16:33 5 MG Allergies Allergies Allergies Coded Allergies Type Severity Reaction Last Updated Verified No Known Drug Allergies 12/13/17 No Physical Exam Physical Exam Constitutional: Well developed, well nourished, no acute distress, non-toxic appearance. [] Skin: Warm, dry, no erythema, no rash. [] Back: No tenderness, no CVA tenderness. [] Extremities: Left ankle with mild soft tissue swelling especially on the lateral aspect, tenderness on palpation of the left lateral ankle. Full range of motion to the left ankle and toes. +2 left pedal pulse. Cap refill less than 2 seconds the left toes. Sensation intact to the left toes. Neurologic: Alert and oriented X 3, normal motor function, normal sensory function, no focal deficits noted. [] Psychologic: Affect normal, judgement normal, mood normal. [] Current Patient Data Vital Signs Vital Signs Date Time Temp Pulse Resp B/P (MAP) Pulse Ox O2 Delivery O2 Flow Rate FiO2 02/10/19 16:15 97.8 71 16 129/58 (81) 97 Nasal Cannula 2.0 97.8 EKG EKG [] Radiology/Procedures Radiology/Procedures [] Course & Med Decision Making Course & Med Decision Making Pertinent Labs and Imaging studies reviewed. (See chart for details) This is a 5-year-old female patient presenting to the ED today with left ankle pain, no known injury. Left ankle x-rays interpreted by Dr. Reis are negative for any acute findings, Regulo bandage applied to the left ankle. Ice, elevation encouraged. Encouraged to take her hydrocodone at home as needed for pain and follow-up with the PCP orthopedic doctor in the course of next week. Dragon Disclaimer Dragon Disclaimer This electronic medical record was generated, in whole or in part, using a voice recognition dictation system. Departure Departure Impression: Primary Impression: Left ankle pain Disposition: HOME, SELF-CARE Condition: STABLE Referrals: ARELI MATIAS MD (PCP) JAVIER WASSERMAN MD follow up in 1 week Patient Instructions: Ankle Pain Additional Instructions: You were seen for left ankle pain, your left ankle x-rays were negative for any acute findings. Try to ice and elevate the extremity. Wrap you ankle with the Regulo bandage provided as tolerated. Follow-up with your own doctor or orthopedic doctor in 1-2 weeks. Problem Qualifiers Primary Impression: Left ankle pain Chronicity: acute Qualified Codes: M25.572 - Pain in left ankle and joints of left foot HENRI BROWN APRN Feb 10, 2019 16:29
[2019-02-10] MEDS ORDERED: MORPHINE SULFATE 10 MG/ML VIAL. IM ONE (16:30)
[2019-02-10 18:10] VITALS: BP 141/78
--- NOTE | 2019-02-10 19:12 | RAD ---
ANKLE LEFT 3V History: Ankle pain, previous surgery Comparison: February 11, 2017 Findings: 3 views of the left ankle are submitted. There is bone demineralization. There is old healed fracture distal fibula and tibia. There is vascular calcification. There are dorsal and plantar calcaneal enthesophytes. No acute fracture is identified. Impression: 1. There are old healed fractures of the distal shafts of the fibula and tibia, no evidence of acute fracture. There is bone demineralization. Electronically signed by: Joe Olson MD (02/10/2019 7:09 PM) [facility]
[2019-02-23] MEDS ORDERED: INSU100V8 SQ (08:47)
== END 2019-02-10 18:56 | disposition home or self-care (01) ==
LOC: ER 16:13
DX: M25.572 Pain in left ankle and joints of left foot (principal); I12.9 Hypertensive chronic kidney disease with stage 1 through stage 4 chronic kidney disease, or unspecified chronic kidney disease; E11.22 Type 2 diabetes mellitus with diabetic chronic kidney disease; N18.9 Chronic kidney disease, unspecified; J44.9 Chronic obstructive pulmonary disease, unspecified; Z98.890 Other specified postprocedural states
CPT/HCPCS: 73610; 96372; 99284; J2270

== ENCOUNTER 2019-02-13 15:45 | Emergency (ER) | payer OTHER ==
[2019-02-13 20:46] LABS: RED BLOOD COUNT 3.47 x10^6/uL (3.50-5.40); WHITE BLOOD COUNT 10.2 x10^3/uL (4.0-11.0)
[2019-02-13 20:47] LABS: ALBUMIN 2.7 g/dL (3.4-5.0); BASO % 0 % (0-3); CREATININE 6.6 mg/dL (0.6-1.0); EOS # 0.1 x10^3/uL (0.0-0.7); EOS % 1 % (0-3); GFR 6.2; HEMATOCRIT 33.5 % (36.0-47.0); HEMOGLOBIN 10.9 g/dL (12.0-15.5); LYMPH # 1.2 x10^3/uL (1.0-4.8); LYMPH % 12 % (24-48); MAGNESIUM 1.8 mg/dL (1.8-2.4); MEAN CORPUSCULAR HEMOGLOBIN 31 pg (25-35); MEAN CORPUSCULAR HGB CONC 33 g/dL (31-37); MEAN CORPUSCULAR VOLUME 96 fL (79-100); MONO # 0.5 x10^3/uL (0.0-1.1); MONO % 5 % (0-9); NEUT # 8.3 x10^3uL (1.8-7.7); NEUT % 82 % (31-73); PLATELET COUNT 89 x10^3/uL (140-400); POTASSIUM 4.2 mmol/L (3.5-5.1); RED CELL DISTRIBUTION WIDTH 18.8 % (11.5-14.5); TOTAL BILIRUBIN 0.6 mg/dL (0.2-1.0); TOTAL PROTEIN 5.4 g/dL (6.4-8.2)
[2019-02-13 20:48] LABS: PROTHROMBIN TIME PATIENT 12.8 SEC (11.7-14.0)
--- NOTE | 2019-02-14 07:44 | EKG ---
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 Electronically Signed On 02-16-2019 9:44:30 CDT by Efren Vang
[2019-02-23] MEDS ORDERED: INSU100V8 SQ (08:47)
== END 2019-02-13 17:23 | disposition home or self-care (01) ==
LOC: ER 15:45
DX: R25.1 Tremor, unspecified (principal); R53.1 Weakness; I13.11 Hypertensive heart and chronic kidney disease without heart failure, with stage 5 chronic kidney disease, or end stage renal disease; E11.22 Type 2 diabetes mellitus with diabetic chronic kidney disease; N18.6 End stage renal disease; Z99.2 Dependence on renal dialysis
CPT/HCPCS: 36415; 80053; 83735; 85025; 85610; 85730; 93005; 99285-25

== ENCOUNTER 2019-02-20 17:24 | Inpatient (IN) | payer OTHER ==
[~2019-02-20] VITALS: Ht 157.5 cm; Wt 56.3 kg
[2019-02-20] MEDS ORDERED: IPRATRPIUM/ALBUTEROL 0.5/2.5MG 3 ML NEBU. NEB ONE (18:30)
[2019-02-20] MEDS ORDERED: ASPIRIN 325 MG TABLET PO ONE (18:30)
[2019-02-20] MEDS ORDERED: DEXAMETHASONE SOD PHOS 20 MG/5 ML VIAL. IV ONE (18:30)
[2019-02-20] MEDS ORDERED: fentaNYL PF VIAL 100 MCG/2 ML VIAL IV ONE (18:30)
[2019-02-20 18:40] LABS: BASO % 1 % (0-3); EOS # 0.1 x10^3/uL (0.0-0.7); EOS % 1 % (0-3); HEMATOCRIT 34.2 % (36.0-47.0); LYMPH # 1.2 x10^3/uL (1.0-4.8); LYMPH % 18 % (24-48); MEAN CORPUSCULAR HEMOGLOBIN 31 pg (25-35); MEAN CORPUSCULAR HGB CONC 32 g/dL (31-37); MEAN CORPUSCULAR VOLUME 97 fL (79-100); MONO # 0.7 x10^3/uL (0.0-1.1); MONO % 10 % (0-9); NEUT # 4.7 x10^3uL (1.8-7.7); NEUT % 70 % (31-73); PLATELET COUNT 105 x10^3/uL (140-400); RED BLOOD COUNT 3.52 x10^6/uL (3.50-5.40); RED CELL DISTRIBUTION WIDTH 18.8 % (11.5-14.5); WHITE BLOOD COUNT 6.7 x10^3/uL (4.0-11.0)
[2019-02-20 18:52] LABS: CALCIUM 8.6 mg/dL (8.5-10.1); CREATININE 6.5 mg/dL (0.6-1.0); GFR 6.3; POTASSIUM 3.7 mmol/L (3.5-5.1)
[2019-02-20 18:58] LABS: ALBUMIN 2.7 g/dL (3.4-5.0); ALBUMIN/GLOBULIN RATIO 0.8 (1.0-1.7); TOTAL BILIRUBIN 0.5 mg/dL (0.2-1.0); TOTAL PROTEIN 5.9 g/dL (6.4-8.2)
[2019-02-20] MEDS ORDERED: DEXAMETHASONE SOD PHOS 4 MG/ML VIAL IV ONE (19:00)
--- NOTE | 2019-02-20 19:04 | RAD ---
EXAM: Chest, single view. HISTORY: Dyspnea. COMPARISON: 01/08/2019 FINDINGS: A frontal view of the chest is obtained. There has been slight interval decrease in diffuse interstitial infiltrate and small bilateral pleural effusions. There is suspected superimposed stable linear scarring or atelectasis within the right mid thorax and lingula. There is no pneumothorax. The heart is normal in size. IMPRESSION: Slight interval decrease in diffuse interstitial infiltrate with small pleural effusions. Electronically signed by: Tamara Merlos MD (02/20/2019 7:01 PM) [facility]
[2019-02-20 19:05] LABS: CREATINE KINASE 36 U/L (26-192)
--- NOTE | 2019-02-20 19:29 | PHYS DOC ---
Past Medical History Past Medical History: Bronchitis, COPD, Diabetes-Type II, Hypertension, Pneumonia, Renal Failure, Other Additional Past Medical Histor: c diff,drop foot syndrome Past Surgical History: Cholecystectomy, , Hysterectomy, Tonsillectomy, Tubal ligation, Other Additional Past Surgical Histo: bilat rotator cuff;dialysis shunt left forearm,L ANKLE ORIF Smoking: Second-hand Alcohol Use: None Drug Use: None Adult General Chief Complaint Chief Complaint: SHORTNESS OF BREATH HPI HPI Patient is a 68 year old female who presents with productive cough and shortness of breath that began 2 days ago. She states that when she began feeling ill, she took her temperature using a forehead probe which read "100 something". She has been coughing up yellow-green sputum frequently and has since developed a sharp chest pain that is worse with movement and coughing. She states this chest pain does radiate into the neck and abdomen. Denies nausea or diaphoresis at this time but did vomit once last night. Of note, patient was recently hospitalized for treatment of pneumonia and is on the final doses of her steroid prescription. Her sister was diagnosed with walking pneumonia 2 days ago and she is in frequent contact with the patient. Patient has ESRD requiring hemodialysis three times a week and does not produce urine. Patient wears 2L/min oxygen by OR at home. Review of Systems Review of Systems Constitutional: Reports fever and night time chills. [] Eyes: Denies blurred vision or diplopia. [] HENT: Reports mild sore throat. Denies nasal congestion or rhinorrhea. [] Respiratory: Reports cough productive of yellow-green sputum as well as shortness of breath. [] Cardiovascular: Reports sharp chest pain. Denies palpitations. [] GI: Reports abdominal pain, diarrhea, and one episode of vomiting. [] : Denies dysuria or hematuria [] Musculoskeletal: Reports mild muscle pain and chronic joint pain. [] Integument: Denies rash or skin lesions [] Neurologic: Denies headache, focal weakness, sensory changes, or dizziness. [] Complete review of systems found to be within normal limits, except as documented in this note. Current Medications Current Medications Current Medications Medications (Trade) Dose Ordered Sig/Bill Start Time Stop Time Status Last Admin Dose Admin Albuterol/ Ipratropium (Duoneb) 3 ml 1X ONCE 02/20/19 18:30 02/20/19 18:34 DC 5/7/19 19:17 3 ML Aspirin (Ko Aspirin) 325 mg 1X ONCE 02/20/19 18:30 02/20/19 18:34 DC 02/20/19 19:06 325 MG Dexamethasone Sodium Phosphate (Decadron) 10 mg 1X ONCE 02/20/19 19:00 02/20/19 19:01 DC 02/20/19 19:05 10 MG Fentanyl Citrate (Fentanyl 2ml Vial) 50 mcg 1X ONCE 02/20/19 18:30 02/20/19 18:34 DC 02/20/19 19:06 50 MCG Allergies Allergies Allergies Coded Allergies Type Severity Reaction Last Updated Verified No Known Drug Allergies 12/13/17 No Physical Exam Physical Exam Constitutional: Well developed, well nourished and in no acute distress. [] HENT: Normocephalic, atraumatic, oropharynx moist, no oral exudates, no nasal edema or erythema, no rhinorrhea. [] Eyes: EOMI, conjunctiva normal, no discharge. [] Neck: Supple with mild tenderness and lymphadenopathy on right submandibular region. [] Cardiovascular:Heart rate regular rhythm, no murmur. Chest painful to palpation on sternum and parasternal regions. [] Lungs & Thorax: Coarse rhonchi noted in left lower lung landis, good air movement in remaining lung landis. [] Abdomen: Soft with diffuse tenderness to palpation. [] Skin: Warm, dry, no erythema, no rash. [] Extremities: Well-healing surgical site on left ventral forearm. Capillary refill < 2s [] Neurologic: Alert and oriented, no focal deficits noted. [] Psychologic: Affect normal, judgement normal, mood normal. [] Current Patient Data Vital Signs Vital Signs Date Time Temp Pulse Resp B/P (MAP) Pulse Ox O2 Delivery O2 Flow Rate FiO2 02/20/19 19:41 70 20 148/64 (92) 97 Nasal Cannula 2.0 02/20/19 17:40 98.0 98.0 Lab Values Laboratory Tests Test 02/20/19 18:10 02/20/19 19:14 White Blood Count 6.7 x10^3/uL (4.0-11.0) Red Blood Count 3.52 x10^6/uL (3.50-5.40) Hemoglobin 11.0 g/dL (12.0-15.5) L Hematocrit 34.2 % (36.0-47.0) L Mean Corpuscular Volume 97 fL (79-100) Mean Corpuscular Hemoglobin 31 pg (25-35) Mean Corpuscular Hemoglobin Concent 32 g/dL (31-37) Red Cell Distribution Width 18.8 % (11.5-14.5) H Platelet Count 105 x10^3/uL (140-400) L Neutrophils (%) (Auto) 70 % (31-73) Lymphocytes (%) (Auto) 18 % (24-48) L Monocytes (%) (Auto) 10 % (0-9) H Eosinophils (%) (Auto) 1 % (0-3) Basophils (%) (Auto) 1 % (0-3) Neutrophils # (Auto) 4.7 x10^3uL (1.8-7.7) Lymphocytes # (Auto) 1.2 x10^3/uL (1.0-4.8) Monocytes # (Auto) 0.7 x10^3/uL (0.0-1.1) Eosinophils # (Auto) 0.1 x10^3/uL (0.0-0.7) Basophils # (Auto) 0.0 x10^3/uL (0.0-0.2) Sodium Level 141 mmol/L (136-145) Potassium Level 3.7 mmol/L (3.5-5.1) Chloride Level 102 mmol/L (98-107) Carbon Dioxide Level 28 mmol/L (21-32) Anion Gap 11 (6-14) Blood Urea Nitrogen 42 mg/dL (7-20) H Creatinine 6.5 mg/dL (0.6-1.0) H Estimated GFR (Cockcroft-Gault) 6.3 BUN/Creatinine Ratio 6 (6-20) Glucose Level 134 mg/dL (70-99) H Lactic Acid Level 1.0 mmol/L (0.4-2.0) Calcium Level 8.6 mg/dL (8.5-10.1) Total Bilirubin 0.5 mg/dL (0.2-1.0) Aspartate Amino Transferase (AST) 39 U/L (15-37) H Alanine Aminotransferase (ALT) 28 U/L (14-59) Alkaline Phosphatase 191 U/L (46-116) H Creatine Kinase 36 U/L (26-192) Creatine Kinase MB (Mass) 1.3 ng/mL (0.0-3.6) Creatine Kinase MB Relative Index % (0-4) Troponin I Quantitative 0.037 ng/mL (0.000-0.055) OT-Xsq-C-Type Natriuretic Peptide 76014 pg/mL (0-124) H Total Protein 5.9 g/dL (6.4-8.2) L Albumin 2.7 g/dL (3.4-5.0) L Albumin/Globulin Ratio 0.8 (1.0-1.7) L Influenza Type A Antigen Negative (NEGATIVE) Influenza Type B Antigen Negative (NEGATIVE) Laboratory Tests 02/20/19 18:10 Laboratory Tests 02/20/19 18:10 Microbiology 02/20/19 Blood Culture - Preliminary, Resulted NO GROWTH AFTER 3 DAYS EKG EKG @1744: Normal sinus rhythm with rate of 69. Normal axis. Nonpathologic Q waves in I and aVL. No ST segment elevation or depression. No T wave abnormalities.[] Radiology/Procedures Radiology/Procedures PROCEDURE: PORTABLE CHEST 1V EXAM: Chest, single view. HISTORY: Dyspnea. COMPARISON: 01/08/2019 FINDINGS: A frontal view of the chest is obtained. There has been slight interval decrease in diffuse interstitial infiltrate and small bilateral pleural effusions. There is suspected superimposed stable linear scarring or atelectasis within the right mid thorax and lingula. There is no pneumothorax. The heart is normal in size. IMPRESSION: Slight interval decrease in diffuse interstitial infiltrate with small pleural effusions. Electronically signed by: Tamara Merlos MD (02/20/2019 7:01 PM) [facility][] Course & Med Decision Making Course & Med Decision Making Pertinent Labs and Imaging studies reviewed. (See chart for details) Patient was hospitalized at the end of December for a bout of pneumonia and presents to the ED tonight for evaluation of shortness of breath and cough productive of yellow-green sputum. Patient was afebrile with stable vital signs upon arrival with slight increase in O2 requirements up to 3L by NC from her home baseline of 2L. Labs revealed no leukocytosis with platelets of 105,000, BUN and Cr consistent with end-stage renal disease. Chest X-ray showed interval improvement from prior films on 01/08/19 with small b/l pleural effusions. Patient was given a Duoneb breathing treatment with mild improvement in her respiratory effort. Pain was addressed with interval improvement. Patient desires to be admitted which is reasonable given her chronic diseases, age, and recent hospitalization for pneumonia. Patient requiring admission for further evaluation and treatment. Discussed with Dr. Chávez (PCP) who is in agreement with admit. Discussed findings and plan with patient, who acknowledges understanding and agreement. Dragon Disclaimer Dragon Disclaimer This electronic medical record was generated, in whole or in part, using a voice recognition dictation system. Departure Departure Impression: Primary Impression: COPD exacerbation Additional Impression: ESRD on hemodialysis Disposition: ADMITTED INPATIENT Admitting Physician: Nicolasa Banuelos Condition: STABLE Referrals: NICOLASA BANUELOS MD (PCP) Scripts Insulin Glargine,Hum.rec.anlog (LANTUS) 100 Unit/1 Ml Vial 12 UNITS SQ HS for Diabetes for 30 Days, VIAL Prov: NICOLASA BANUELOS MD 02/23/19 Problem Qualifiers MARQUITA UIRBE DO February 20, 2019 19:29
[2019-02-20 19:31] LABS: INFLUENZA A PATIENT NEGATIVE (NEGATIVE); INFLUENZA B PATIENT NEGATIVE (NEGATIVE)
[2019-02-20] MEDS ORDERED: ONDANSETRON PF 4 MG/2 ML VIAL. IV PRN (20:00)
[2019-02-20] MEDS ORDERED: ACETAMINOPHEN 325 MG TABLET. PO PRN (20:00)
[2019-02-20] MEDS: IPRATRPIUM/ALBUTEROL 0.5/2.5MG 3 ML NEBU. NEB SCH (20:00)
[2019-02-20] MEDS ORDERED: DEXTROSE 50% 25 GM / 50ML DISP.SYRIN. IV PRN (20:00)
[2019-02-20 23:26] VITALS: BP 133/52
[2019-02-21 03:33] VITALS: BP 141/53
--- NOTE | 2019-02-21 06:58 | EKG ---
[facility] [address] [place] [id number] Test Date: 2019-02-20 Test Time: 17:44:50 Pat Name: ROBBIN LYNN Department: Room: 671 1 Gender: F Cadet Deck: : 1950 Requested By: MARQUITA URIBE Order Number: [id number] Reading MD: Julio Viveros MD Measurements Intervals [place] Rate: 69 P: 37 NV: 154 QRS: 9 QRSD: 86 T: 64 QT: 404 QTc: 434 Interpretive Statements SINUS RHYTHM Electronically Signed On 03-19-2019 9:25:14 CDT by Julio Viveros MD
[2019-02-21 07:00] VITALS: BP 155/64
[2019-02-21] MEDS ORDERED: INSULIN LISPRO 300 UNITS/3 ML INSULN.PEN. SQ SCH (08:00)
[2019-02-21] MEDS: IPRATRPIUM/ALBUTEROL 0.5/2.5MG 3 ML NEBU. NEB SCH (08:09)
[2019-02-21] MEDS ORDERED: ALBUTEROL SULFATE 2.5 MG/3 ML NEBU. NEB PRN (08:30)
[2019-02-21] MEDS ORDERED: ACETAMINOPHEN 325 MG TABLET. PO PRN (08:45)
--- NOTE | 2019-02-21 08:56 | PDOC ---
PROGRESS NOTES Subjective Subjective Patient reports cough still troublesome. No chest pain. Objective Objective Vital Signs Date Time Temp Pulse Resp B/P (MAP) Pulse Ox O2 Delivery O2 Flow Rate FiO2 02/21/19 08:10 100 Nasal Cannula 2.0 02/21/19 07:00 97.6 84 16 155/64 (94) 97.6 Intake and Output 02/21/19 07:00 Intake Total 300 ml Balance 300 ml Intake Oral 300 ml Physical Exam Abdomen: Normal bowel sounds, Soft, No tenderness Heart: Regular rate Extremities: No edema General: Alert, Oriented X3, No acute distress Lungs: Other (BS decreased throughout, crackles bilateral bases, mild expiratory wheezes) Plan Plan of Care 1. Acute on chronic respiratory failure with BOOP - sats stable with O2. R eceived one dose of steroids in ER. Await Pulmonary consult for further tx. Had been on tapering dose of Prednisone since last hospitalization in December and doing well until two days ago. Cough syrup at HS only for cough interfering with sleep. 2. HTN - continue home meds. 3. ESRD - continue dialysis as scheduled. 4. DM2 - glucose elevated due to steroids. Insulins ordered. Patient fearful of low glucose so higher amounts of insulin not ordered at this time. Follow [facility] and adjust as indicated. 5. chronic back pain - stable, [place] as needed. Comment Review of Relevant I have reviewed the following items cosmo (where applicable) has been applied. Labs Laboratory Tests Test 02/20/19 18:10 02/20/19 19:14 02/21/19 02:00 02/21/19 07:32 White Blood Count 6.7 x10^3/uL (4.0-11.0) Red Blood Count 3.52 x10^6/uL (3.50-5.40) Hemoglobin 11.0 g/dL (12.0-15.5) Hematocrit 34.2 % (36.0-47.0) Mean Corpuscular Volume 97 fL (79-100) Mean Corpuscular Hemoglobin 31 pg (25-35) Mean Corpuscular Hemoglobin Concent 32 g/dL (31-37) Red Cell Distribution Width 18.8 % (11.5-14.5) Platelet Count 105 x10^3/uL (140-400) Neutrophils (%) (Auto) 70 % (31-73) Lymphocytes (%) (Auto) 18 % (24-48) Monocytes (%) (Auto) 10 % (0-9) Eosinophils (%) (Auto) 1 % (0-3) Basophils (%) (Auto) 1 % (0-3) Neutrophils # (Auto) 4.7 x10^3uL (1.8-7.7) Lymphocytes # (Auto) 1.2 x10^3/uL (1.0-4.8) Monocytes # (Auto) 0.7 x10^3/uL (0.0-1.1) Eosinophils # (Auto) 0.1 x10^3/uL (0.0-0.7) Basophils # (Auto) 0.0 x10^3/uL (0.0-0.2) Sodium Level 141 mmol/L (136-145) Potassium Level 3.7 mmol/L (3.5-5.1) Chloride Level 102 mmol/L (98-107) Carbon Dioxide Level 28 mmol/L (21-32) Anion Gap 11 (6-14) Blood Urea Nitrogen 42 mg/dL (7-20) Creatinine 6.5 mg/dL (0.6-1.0) Estimated GFR (Cockcroft-Gault) 6.3 BUN/Creatinine Ratio 6 (6-20) Glucose Level 134 mg/dL (70-99) Lactic Acid Level 1.0 mmol/L (0.4-2.0) Calcium Level 8.6 mg/dL (8.5-10.1) Total Bilirubin 0.5 mg/dL (0.2-1.0) Aspartate Amino Transf (AST/SGOT) 39 U/L (15-37) Alanine Aminotransferase (ALT/SGPT) 28 U/L (14-59) Alkaline Phosphatase 191 U/L (46-116) Creatine Kinase 36 U/L (26-192) Creatine Kinase MB (Mass) 1.3 ng/mL (0.0-3.6) Creatine Kinase MB Relative Index % (0-4) Troponin I Quantitative 0.037 ng/mL (0.000-0.055) 0.047 ng/mL (0.000-0.055) NG-Wbc-W-Type Natriuretic Peptide 17323 pg/mL (0-124) Total Protein 5.9 g/dL (6.4-8.2) Albumin 2.7 g/dL (3.4-5.0) Albumin/Globulin Ratio 0.8 (1.0-1.7) Influenza Type A Antigen Negative (NEGATIVE) Influenza Type B Antigen Negative (NEGATIVE) Glucose (Fingerstick) 438 mg/dL (70-99) Laboratory Tests Test 02/20/19 18:10 02/20/19 19:14 02/21/19 02:00 02/21/19 07:32 White Blood Count 6.7 x10^3/uL (4.0-11.0) Red Blood Count 3.52 x10^6/uL (3.50-5.40) Hemoglobin 11.0 g/dL (12.0-15.5) Hematocrit 34.2 % (36.0-47.0) Mean Corpuscular Volume 97 fL (79-100) Mean Corpuscular Hemoglobin 31 pg (25-35) Mean Corpuscular Hemoglobin Concent 32 g/dL (31-37) Red Cell Distribution Width 18.8 % (11.5-14.5) Platelet Count 105 x10^3/uL (140-400) Neutrophils (%) (Auto) 70 % (31-73) Lymphocytes (%) (Auto) 18 % (24-48) Monocytes (%) (Auto) 10 % (0-9) Eosinophils (%) (Auto) 1 % (0-3) Basophils (%) (Auto) 1 % (0-3) Neutrophils # (Auto) 4.7 x10^3uL (1.8-7.7) Lymphocytes # (Auto) 1.2 x10^3/uL (1.0-4.8) Monocytes # (Auto) 0.7 x10^3/uL (0.0-1.1) Eosinophils # (Auto) 0.1 x10^3/uL (0.0-0.7) Basophils # (Auto) 0.0 x10^3/uL (0.0-0.2) Sodium Level 141 mmol/L (136-145) Potassium Level 3.7 mmol/L (3.5-5.1) Chloride Level 102 mmol/L (98-107) Carbon Dioxide Level 28 mmol/L (21-32) Anion Gap 11 (6-14) Blood Urea Nitrogen 42 mg/dL (7-20) Creatinine 6.5 mg/dL (0.6-1.0) Estimated GFR (Cockcroft-Gault) 6.3 BUN/Creatinine Ratio 6 (6-20) Glucose Level 134 mg/dL (70-99) Lactic Acid Level 1.0 mmol/L (0.4-2.0) Calcium Level 8.6 mg/dL (8.5-10.1) Total Bilirubin 0.5 mg/dL (0.2-1.0) Aspartate Amino Transf (AST/SGOT) 39 U/L (15-37) Alanine Aminotransferase (ALT/SGPT) 28 U/L (14-59) Alkaline Phosphatase 191 U/L (46-116) Creatine Kinase 36 U/L (26-192) Creatine Kinase MB (Mass) 1.3 ng/mL (0.0-3.6) Creatine Kinase MB Relative Index % (0-4) Troponin I Quantitative 0.037 ng/mL (0.000-0.055) 0.047 ng/mL (0.000-0.055) NU-Owk-T-Type Natriuretic Peptide 77998 pg/mL (0-124) Total Protein 5.9 g/dL (6.4-8.2) Albumin 2.7 g/dL (3.4-5.0) Albumin/Globulin Ratio 0.8 (1.0-1.7) Influenza Type A Antigen Negative (NEGATIVE) Influenza Type B Antigen Negative (NEGATIVE) Glucose (Fingerstick) 438 mg/dL (70-99) Medications Current Medications Albuterol/ Ipratropium (Duoneb) 3 ml 1X ONCE NEB Last administered on 02/20/19at 19:17; Start 02/20/19 at 18:30; Stop 02/20/19 at 18:34; Status DC Dexamethasone Sodium Phosphate (Decadron) 10 mg 1X ONCE IV ; Start 02/20/19 at 18:30; Stop 02/20/19 at 18:31; Status Cancel Aspirin (Ko Aspirin) 325 mg 1X ONCE PO Last administered on 02/20/19at 19:06; Start 02/20/19 at 18:30; Stop 02/20/19 at 18:34; Status DC Fentanyl Citrate (Fentanyl 2ml Vial) 50 mcg 1X ONCE IV Last administered on 02/20/19at 19:06; Start 02/20/19 at 18:30; Stop 02/20/19 at 18:34; Status DC Dexamethasone Sodium Phosphate (Decadron) 10 mg 1X ONCE IV Last administered on 02/20/19at 19:05; Start 02/20/19 at 19:00; Stop 02/20/19 at 19:01; Status DC Ondansetron HCl (Zofran) 4 mg PRN Q8HRS PRN IV NAUSEA/VOMITING; Start 02/20/19 at 20:00; Stop 02/21/19 at 19:59 Acetaminophen (Tylenol) 650 mg PRN Q4HRS PRN PO FEVER; Start 02/20/19 at 20:00; Stop 02/21/19 at 19:59 Albuterol/ Ipratropium (Duoneb) 3 ml RTQID NEB ; Start 02/20/19 at 20:00; Stop 02/21/19 at 08:42; Status DC Insulin Human Lispro (HumaLOG) 0-5 UNITS TIDWMEALS SQ ; Start 02/21/19 at 08:00 Dextrose (Dextrose 50%-Water Syringe) 12.5 gm PRN Q15MIN PRN IV SEE COMMENTS; Start 02/20/19 at 20:00 Acetaminophen (Tylenol) 650 mg PRN Q6HRS PRN PO MILD PAIN; Start 02/21/19 at 08:45 Amlodipine Besylate (Norvasc) 10 mg DAILY PO ; Start 02/21/19 at 09:00 Aspirin (Children'S Aspirin) 81 mg DAILYWBKFT PO ; Start 02/21/19 at 09:00 Cetirizine HCl (ZyrTEC) 10 mg DAILY PO ; Start 02/21/19 at 09:00 Clonidine HCl (Catapres) 0.1 mg BID PO ; Start 02/21/19 at 09:00 Gabapentin (Neurontin) 200 mg BID PO ; Start 02/21/19 at 09:00 Acetaminophen/ Hydrocodone Bitart (Lortab 5/325) 1 tab Q6HRS PRN PO PAIN; Start 02/21/19 at 08:45; Status UNV Lactobacillus Rhamnosus (Culturelle) 1 cap BID PO ; Start 02/21/19 at 09:00; Status UNV Sevelamer Carbonate (Renvela) 1,600 mg [id number] PO ; Start 02/21/19 at 13:00; Status UNV Non-Formulary Medication (Calcium Carbonate/Vitamin D3 (Calcium 600 + Vit D 400 Caplet)) 1 each DAILY PO ; Start 02/21/19 at 09:00; Status UNV Non-Formulary Medication (Fluticasone Propionate (Flonase Allergy Relief)) 2 sprays DAILY NS ; Start 02/21/19 at 09:00; Status UNV Non-Formulary Medication (Hydralazine Hcl ) 1 tab TID PO ; Start 02/21/19 at 09:00; Status UNV Non-Formulary Medication (Labetalol Hcl ) 1 tab DAILY PO ; Start 02/21/19 at 09:00; Status UNV Non-Formulary Medication (Omeprazole ) 40 mg DAILY PO ; Start 02/21/19 at 09:00; Status UNV Non-Formulary Medication (Vit B Cmplx 3/ Fa/Vit C/Biotin ([place] Rx Tablet)) 1 each DAILY PO ; Start 02/21/19 at 09:00; Status UNV Insulin Human Lispro (HumaLOG) 8 units TIDAC SQ ; Start 02/21/19 at 08:45; Status UNV Insulin Glargine (Lantus) 8 units QHS SQ ; Start 02/21/19 at 21:00; Status UNV Albuterol Sulfate (Ventolin Neb Soln) 2.5 mg PRN Q4HRS PRN NEB SHORTNESS OF BREATH; Start 02/21/19 at 08:30; Status UNV Active Scripts Active Prednisone 20 Mg Tablet 30 Mg PO DAILY 28 Days Novolog (Insulin Aspart) 100 Unit/1 Ml Cartridge 10-40 Unit SQ TIDBFRMEAL 30 Days Lantus (Insulin Glargine,Hum.rec.anlog) 100 Unit/1 Ml Vial 20 Units SQ HS 30 Days Proair Respiclick (Albuterol Sulfate) 90 Mcg Aer.pow.ba 1 Puff IH PRN Q6HRS PRN Culturelle (Lactobacillus Rhamnosus Gg) 1 Each Cap.sprink 1 Cap PO BID 30 Days Combivent Respimat Inhal (Ipratropium/Albuterol Sulfate) 4 Gm Aer.w.adap 2 Inh IH QID 30 Days Labetalol Hcl 200 Mg Tablet 1 Tab PO DAILY 30 Days Children's Aspirin (Aspirin) 81 Mg Tab.chew 81 Mg PO DAILYWBKFT 30 Days Reported Omeprazole 40 Mg Capsule.dr 40 Mg PO DAILY Hydrocodone-Apap 5-325 (Hydrocodone Bit/Acetaminophen) 1 Each Tablet 1 Tab PO Q6HRS PRN Hydralazine Hcl 50 Mg Tablet 1 Tab PO TID Gabapentin (Gabapentin) 100 Mg Capsule 200 Mg PO BID Cetirizine Hcl 10 Mg Tablet 1 Tab PO DAILY Tylenol (Acetaminophen) 325 Mg Tablet 2 Tab PO PRN Q6HRS PRN Clonidine Hcl 0.1 Mg Tablet 0.1 Mg PO BID Alendronate Sodium 70 Mg Tablet 70 Mg PO Q2WKS Flonase Allergy Relief (Fluticasone Propionate) 9.9 Ml [place].susp 2 Sprays NS DAILY Calcium 600 + Vit D 400 Caplet (Calcium Carbonate/Vitamin D3) 1 Each Tablet 1 Each PO DAILY Renvela (Sevelamer Carbonate) 800 Mg Tablet 2 Tab PO [id number] Norvasc (Amlodipine Besylate) 10 Mg Tablet 10 Mg PO DAILY [place]-Abby Rx Tablet (Vit B Cmplx 3/Fa/Vit C/Biotin) 1 Each Tablet 1 Each PO DAILY Vitals/I & O Vital Sign - Last 24 Hours 02/20/19 02/20/19 02/20/19 02/20/19 17:40 17:41 18:18 18:41 Temp 98.0 98.0 Pulse 71 70 70 68 Resp 18 24 20 20 B/P (MAP) 116/57 (76) 116/57 (76) 123/58 (79) 116/57 (76) Pulse Ox 96 99 98 98 O2 Delivery Nasal Cannula Nasal Cannula Nasal Cannula Nasal Cannula O2 Flow Rate 2.0 2.0 2.0 2.0 02/20/19 02/20/19 02/20/19 02/20/19 19:06 19:11 19:18 19:36 Pulse 72 Resp 16 20 19 B/P (MAP) 145/62 (89) Pulse Ox 100 100 98 99 O2 Delivery Nasal Cannula Nasal Cannula Nasal Cannula O2 Flow Rate 2.0 2.0 3.0 2.0 02/20/19 02/20/19 02/20/19 02/20/19 19:41 20:12 21:30 23:26 Temp 97.4 97.4 Pulse 70 68 79 Resp 20 20 20 B/P (MAP) 148/64 (92) 131/63 (85) 133/52 (79) Pulse Ox 97 99 97 O2 Delivery Nasal Cannula Nasal Cannula Nasal Cannula Nasal Cannula O2 Flow Rate 2.0 2.0 2.0 2.0 02/21/19 02/21/19 02/21/19 03:33 07:00 08:10 Temp 98.3 97.6 98.3 97.6 Pulse 84 84 Resp 16 16 B/P (MAP) 141/53 (82) 155/64 (94) Pulse Ox 94 98 100 O2 Delivery Nasal Cannula Nasal Cannula Nasal Cannula O2 Flow Rate 2.0 2.0 2.0 l Intake and Output 02/20/19 02/20/19 02/21/19 15:00 23:00 07:00 Intake Total 0 ml 300 ml Balance 0 ml 300 ml ARELI MATIAS MD February 21, 2019 08:56
[2019-02-21] MEDS ORDERED: guaiFENesin/CODEINE 100mg/10mg 5 ML LIQUID PO PRN (09:00)
[2019-02-21] MEDS ORDERED: DEXTROSE 50% 25 GM / 50ML DISP.SYRIN. IV PRN (09:00)
[2019-02-21] MEDS ORDERED: IV NORMAL SALINE 1000ML BAG 1,000 ML IV PRN ×2 (09:01)
[2019-02-21] MEDS ORDERED: DIALYSIS PATIENT. MC PRN ×2 (09:15)
[2019-02-21] MEDS: INSULIN LISPRO 300 UNITS/3 ML INSULN.PEN. SQ SCH ×5 (10:09→17:40)
--- NOTE | 2019-02-21 10:39 | PDOC2 ---
CONSULT Date of Consult Date of Consult DATE: 02/21/19 TIME: 10:35 Reason for Consult Reason for Consult: SOB Referring Physician Referring Physician: FLORENCIO Identification/Chief Complaint Chief Complaint SOB Source Source: Chart review, Patient History of Present Illness Reason for Visit: THIS IS A 68 YR OLD WITH ESRD. SHE HAS RECENTLY HAD PROBLEMS WITH COPD, PNEUMONIA AND BOOP. UNDERGOING PULMONARY EVALUATION. SHE HAS ESRD AND IS ON HD MWF. LABS ARE C/W ESRD. NO EVIDENCE OF FAILURE ON IMAGING Past Medical History Cardiovascular: CAD, CHF, HTN, Hyperlipidemia Pulmonary: Pneumonia CENTRAL NERVOUS SYSTEM: Periperal neuropathy, TIA GI: GERD Heme/Onc: Anemia NOS Hepatobiliary: Cholelithiasis Psych: Depression Musculoskeletal: Other Rheumatologic: No pertinent hx Infectious disease: No pertinent hx Renal/: Chronic renal failure, UTI, Other Endocrine: Diabetes, Hyperparathyroidism Past Surgical History Past Surgical History: Arthroscopy, Cholecystectomy, , Tonsillectomy, Hysterectomy, Other Family History Family History: Cancer, Diabetes, Hypertension, Stroke Social History ALCOHOL: none Drugs: None Lives: with Family Domestic Violence: Neg Current Medications Current Medications Current Medications Albuterol/ Ipratropium (Duoneb) 3 ml 1X ONCE NEB Last administered on 02/20/19at 19:17; Start 02/20/19 at 18:30; Stop 02/20/19 at 18:34; Status DC Dexamethasone Sodium Phosphate (Decadron) 10 mg 1X ONCE IV ; Start 02/20/19 at 18:30; Stop 02/20/19 at 18:31; Status Cancel Aspirin (Ko Aspirin) 325 mg 1X ONCE PO Last administered on 02/20/19at 19:06; Start 02/20/19 at 18:30; Stop 02/20/19 at 18:34; Status DC Fentanyl Citrate (Fentanyl 2ml Vial) 50 mcg 1X ONCE IV Last administered on 02/20/19at 19:06; Start 02/20/19 at 18:30; Stop 02/20/19 at 18:34; Status DC Dexamethasone Sodium Phosphate (Decadron) 10 mg 1X ONCE IV Last administered on 02/20/19at 19:05; Start 02/20/19 at 19:00; Stop 02/20/19 at 19:01; Status DC Ondansetron HCl (Zofran) 4 mg PRN Q8HRS PRN IV NAUSEA/VOMITING; Start 02/20/19 at 20:00; Stop 02/21/19 at 19:59 Acetaminophen (Tylenol) 650 mg PRN Q4HRS PRN PO FEVER; Start 02/20/19 at 20:00; Stop 02/21/19 at 09:06; Status DC Albuterol/ Ipratropium (Duoneb) 3 ml RTQID NEB ; Start 02/20/19 at 20:00; Stop 02/21/19 at 08:42; Status DC Insulin Human Lispro (HumaLOG) 0-5 UNITS TIDWMEALS SQ ; Start 02/21/19 at 08:00; Stop 02/21/19 at 09:05; Status DC Dextrose (Dextrose 50%-Water Syringe) 12.5 gm PRN Q15MIN PRN IV SEE COMMENTS; Start 02/20/19 at 20:00; Stop 02/21/19 at 09:05; Status DC Acetaminophen (Tylenol) 650 mg PRN Q6HRS PRN PO MILD PAIN; Start 02/21/19 at 08:45 Amlodipine Besylate (Norvasc) 10 mg DAILY PO ; Start 02/21/19 at 09:00 Aspirin (Children'S Aspirin) 81 mg DAILYWBKFT PO ; Start 02/21/19 at 09:00 Cetirizine HCl (ZyrTEC) 10 mg DAILY PO ; Start 02/21/19 at 09:00 Clonidine HCl (Catapres) 0.1 mg BID PO ; Start 02/21/19 at 09:00 Gabapentin (Neurontin) 200 mg BID PO ; Start 02/21/19 at 09:00 Acetaminophen/ Hydrocodone Bitart (Lortab 5/325) 1 tab PRN Q6HRS PRN PO MODERATE PAIN; Start 02/21/19 at 08:45 Lactobacillus Rhamnosus (Culturelle) 1 cap BID PO ; Start 02/21/19 at 09:00 Sevelamer Carbonate (Renvela) 1,600 mg TIDWMEALS PO ; Start 02/21/19 at 13:00 Calcium/Vitamin D (Oscal D 500mg/ 200uts) 1 tab DAILY08 PO ; Start 02/21/19 at 09:00 Fluticasone Propionate (Flonase) 2 spray DAILY NS ; Start 02/21/19 at 10:00 Hydralazine HCl (Apresoline) 50 mg TID PO ; Start 02/21/19 at 10:00 Labetalol HCl (Trandate) 200 mg DAILY PO ; Start 02/21/19 at 10:00 Pantoprazole Sodium (Protonix) 40 mg DAILYAC PO ; Start 02/21/19 at 11:30 Vitamin B Complex/ Vitamin C ([place]-Abby) 1 tab DAILY PO ; Start 02/21/19 at 10:00 Insulin Human Lispro (HumaLOG) 8 units TIDAC SQ ; Start 02/21/19 at 08:45 Insulin Glargine (Lantus) 8 units QHS SQ ; Start 02/21/19 at 21:00 Albuterol Sulfate (Ventolin Neb Soln) 2.5 mg PRN Q4HRS PRN NEB SHORTNESS OF BREATH; Start 02/21/19 at 08:30 Guaifenesin/ Codeine Phosphate (Robitussin Ac) 5 ml PRN Q6HRS PRN PO COUGH; Start 02/21/19 at 09:00 Insulin Human Lispro (HumaLOG) 0-9 UNITS TIDWMEALS SQ ; Start 02/21/19 at 12:00 Dextrose (Dextrose 50%-Water Syringe) 12.5 gm PRN Q15MIN PRN IV SEE COMMENTS; Start 02/21/19 at 09:00 Sodium Chloride 1,000 ml @ 1,000 mls/hr Q1H PRN IV hypotension; Start 02/21/19 at 09:01; Stop 02/21/19 at 15:00 Sodium Chloride 1,000 ml @ 400 mls/hr Q2H30M PRN IV PATENCY; Start 02/21/19 at 09:01; Stop 02/21/19 at 21:00 Info (PHARMACY MONITORING -- do not chart) 1 each PRN DAILY PRN MC SEE COMMENTS; Start 02/21/19 at 09:15; Status UNV Info (PHARMACY MONITORING -- do not chart) 1 each PRN DAILY PRN MC SEE COMMENTS; Start 02/21/19 at 09:15 Active Scripts Active Prednisone 20 Mg Tablet 30 Mg PO DAILY 28 Days Novolog (Insulin Aspart) 100 Unit/1 Ml Cartridge 10-40 Unit SQ TIDBFRMEAL 30 Days Lantus (Insulin Glargine,Hum.rec.anlog) 100 Unit/1 Ml Vial 20 Units SQ HS 30 Days Proair Respiclick (Albuterol Sulfate) 90 Mcg Aer.pow.ba 1 Puff IH PRN Q6HRS PRN Culturelle (Lactobacillus Rhamnosus Gg) 1 Each Cap.sprink 1 Cap PO BID 30 Days Combivent Respimat Inhal (Ipratropium/Albuterol Sulfate) 4 Gm Aer.w.adap 2 Inh IH QID 30 Days Labetalol Hcl 200 Mg Tablet 1 Tab PO DAILY 30 Days Children's Aspirin (Aspirin) 81 Mg Tab.chew 81 Mg PO DAILYWBKFT 30 Days Reported Omeprazole 40 Mg Capsule.dr 40 Mg PO DAILY Hydrocodone-Apap 5-325 (Hydrocodone Bit/Acetaminophen) 1 Each Tablet 1 Tab PO Q6HRS PRN Hydralazine Hcl 50 Mg Tablet 1 Tab PO TID Gabapentin (Gabapentin) 100 Mg Capsule 200 Mg PO BID Cetirizine Hcl 10 Mg Tablet 1 Tab PO DAILY Tylenol (Acetaminophen) 325 Mg Tablet 2 Tab PO PRN Q6HRS PRN Clonidine Hcl 0.1 Mg Tablet 0.1 Mg PO BID Alendronate Sodium 70 Mg Tablet 70 Mg PO Q2WKS Flonase Allergy Relief (Fluticasone Propionate) 9.9 Ml [place].susp 2 Sprays NS DAILY Calcium 600 + Vit D 400 Caplet (Calcium Carbonate/Vitamin D3) 1 Each Tablet 1 Each PO DAILY Renvela (Sevelamer Carbonate) 800 Mg Tablet 2 Tab PO [id number] Norvasc (Amlodipine Besylate) 10 Mg Tablet 10 Mg PO DAILY Windy-Abby Rx Tablet (Vit B Cmplx 3/Fa/Vit C/Biotin) 1 Each Tablet 1 Each PO DAILY Allergies Allergies: Coded Allergies: No Known Drug Allergies (Unverified , 12/13/17) ROS General: YES: Fatigue, Malaise, Appetite PSYCHOLOGICAL ROS: YES: Anxiety Eyes: Yes Decreased vision HEENT: YES: Heacaches ALLERGY AND IMMUNOLOGY: YES: Seasonal Allergies Respiratory: YES: Cough, Shortness of breath Cardiovascular: yes Orthopnea Gastrointestinal: Yes Constipation Genitourinary: YES Other (ANURIA) Musculoskeletal: Yes Muscular Weakness Neurological: Yes Weakness Skin: Yes Dry Skin Physical Exam General: Alert, Oriented X3, Cooperative, No acute distress HEENT: Atraumatic, PERRLA Lungs: Clear to auscultation Heart: Regular rate, Normal S1, Normal S2 Abdomen: Normal bowel sounds, Soft, No tenderness Extremities: No cyanosis Skin: No breakdown Neuro: Normal speech Psych/Mental Status: Mental status NL, Mood NL MUSCULOSKELETAL: No joint tenderness, No deformity, No swelling Vitals VITALS Vital Signs Date Time Temp Pulse Resp B/P (MAP) Pulse Ox O2 Delivery O2 Flow Rate FiO2 02/21/19 08:10 100 Nasal Cannula 2.0 02/21/19 07:00 97.6 84 16 155/64 (94) 97.6 Labs Labs Laboratory Tests Test 02/20/19 18:10 02/20/19 19:14 02/21/19 02:00 02/21/19 07:32 White Blood Count 6.7 x10^3/uL (4.0-11.0) Red Blood Count 3.52 x10^6/uL (3.50-5.40) Hemoglobin 11.0 g/dL (12.0-15.5) Hematocrit 34.2 % (36.0-47.0) Mean Corpuscular Volume 97 fL (79-100) Mean Corpuscular Hemoglobin 31 pg (25-35) Mean Corpuscular Hemoglobin Concent 32 g/dL (31-37) Red Cell Distribution Width 18.8 % (11.5-14.5) Platelet Count 105 x10^3/uL (140-400) Neutrophils (%) (Auto) 70 % (31-73) Lymphocytes (%) (Auto) 18 % (24-48) Monocytes (%) (Auto) 10 % (0-9) Eosinophils (%) (Auto) 1 % (0-3) Basophils (%) (Auto) 1 % (0-3) Neutrophils # (Auto) 4.7 x10^3uL (1.8-7.7) Lymphocytes # (Auto) 1.2 x10^3/uL (1.0-4.8) Monocytes # (Auto) 0.7 x10^3/uL (0.0-1.1) Eosinophils # (Auto) 0.1 x10^3/uL (0.0-0.7) Basophils # (Auto) 0.0 x10^3/uL (0.0-0.2) Sodium Level 141 mmol/L (136-145) Potassium Level 3.7 mmol/L (3.5-5.1) Chloride Level 102 mmol/L (98-107) Carbon Dioxide Level 28 mmol/L (21-32) Anion Gap 11 (6-14) Blood Urea Nitrogen 42 mg/dL (7-20) Creatinine 6.5 mg/dL (0.6-1.0) Estimated GFR (Cockcroft-Gault) 6.3 BUN/Creatinine Ratio 6 (6-20) Glucose Level 134 mg/dL (70-99) Lactic Acid Level 1.0 mmol/L (0.4-2.0) Calcium Level 8.6 mg/dL (8.5-10.1) Total Bilirubin 0.5 mg/dL (0.2-1.0) Aspartate Amino Transf (AST/SGOT) 39 U/L (15-37) Alanine Aminotransferase (ALT/SGPT) 28 U/L (14-59) Alkaline Phosphatase 191 U/L (46-116) Creatine Kinase 36 U/L (26-192) Creatine Kinase MB (Mass) 1.3 ng/mL (0.0-3.6) Creatine Kinase MB Relative Index % (0-4) Troponin I Quantitative 0.037 ng/mL (0.000-0.055) 0.047 ng/mL (0.000-0.055) PM-Rfm-H-Type Natriuretic Peptide 92917 pg/mL (0-124) Total Protein 5.9 g/dL (6.4-8.2) Albumin 2.7 g/dL (3.4-5.0) Albumin/Globulin Ratio 0.8 (1.0-1.7) Influenza Type A Antigen Negative (NEGATIVE) Influenza Type B Antigen Negative (NEGATIVE) Glucose (Fingerstick) 438 mg/dL (70-99) Laboratory Tests Test 02/20/19 18:10 02/20/19 19:14 02/21/19 02:00 02/21/19 07:32 White Blood Count 6.7 x10^3/uL (4.0-11.0) Red Blood Count 3.52 x10^6/uL (3.50-5.40) Hemoglobin 11.0 g/dL (12.0-15.5) Hematocrit 34.2 % (36.0-47.0) Mean Corpuscular Volume 97 fL (79-100) Mean Corpuscular Hemoglobin 31 pg (25-35) Mean Corpuscular Hemoglobin Concent 32 g/dL (31-37) Red Cell Distribution Width 18.8 % (11.5-14.5) Platelet Count 105 x10^3/uL (140-400) Neutrophils (%) (Auto) 70 % (31-73) Lymphocytes (%) (Auto) 18 % (24-48) Monocytes (%) (Auto) 10 % (0-9) Eosinophils (%) (Auto) 1 % (0-3) Basophils (%) (Auto) 1 % (0-3) Neutrophils # (Auto) 4.7 x10^3uL (1.8-7.7) Lymphocytes # (Auto) 1.2 x10^3/uL (1.0-4.8) Monocytes # (Auto) 0.7 x10^3/uL (0.0-1.1) Eosinophils # (Auto) 0.1 x10^3/uL (0.0-0.7) Basophils # (Auto) 0.0 x10^3/uL (0.0-0.2) Sodium Level 141 mmol/L (136-145) Potassium Level 3.7 mmol/L (3.5-5.1) Chloride Level 102 mmol/L (98-107) Carbon Dioxide Level 28 mmol/L (21-32) Anion Gap 11 (6-14) Blood Urea Nitrogen 42 mg/dL (7-20) Creatinine 6.5 mg/dL (0.6-1.0) Estimated GFR (Cockcroft-Gault) 6.3 BUN/Creatinine Ratio 6 (6-20) Glucose Level 134 mg/dL (70-99) Lactic Acid Level 1.0 mmol/L (0.4-2.0) Calcium Level 8.6 mg/dL (8.5-10.1) Total Bilirubin 0.5 mg/dL (0.2-1.0) Aspartate Amino Transf (AST/SGOT) 39 U/L (15-37) Alanine Aminotransferase (ALT/SGPT) 28 U/L (14-59) Alkaline Phosphatase 191 U/L (46-116) Creatine Kinase 36 U/L (26-192) Creatine Kinase MB (Mass) 1.3 ng/mL (0.0-3.6) Creatine Kinase MB Relative Index % (0-4) Troponin I Quantitative 0.037 ng/mL (0.000-0.055) 0.047 ng/mL (0.000-0.055) ZO-Yqu-W-Type Natriuretic Peptide 29685 pg/mL (0-124) Total Protein 5.9 g/dL (6.4-8.2) Albumin 2.7 g/dL (3.4-5.0) Albumin/Globulin Ratio 0.8 (1.0-1.7) Influenza Type A Antigen Negative (NEGATIVE) Influenza Type B Antigen Negative (NEGATIVE) Glucose (Fingerstick) 438 mg/dL (70-99) Images Images EXAM: Chest, single view. HISTORY: Dyspnea. COMPARISON: 01/08/2019 FINDINGS: A frontal view of the chest is obtained. There has been slight interval decrease in diffuse interstitial infiltrate and small bilateral pleural effusions. There is suspected superimposed stable linear scarring or atelectasis within the right mid thorax and lingula. There is no pneumothorax. The heart is normal in size. IMPRESSION: Slight interval decrease in diffuse interstitial infiltrate with small pleural effusions. Assessment/Plan Assessment/Plan IMP ESRD ANEMIA DYSPNEA COPD HTN DM II PLAN PULM EVAL AND TX HD TODAY UF TO DW HOMA WHEN NEEDED DAKOTA ARIAS MD February 21, 2019 10:39
--- NOTE | 2019-02-21 10:58 | NUR ---
SW following pt for anticipated dc needs. Chart reviewed. Pt lives at home with family. Pt dialyzes at [facility] and on M, W, F at 0615. Pt also has home o2 with [employer]. Will continue to assess dc needs.
--- NOTE | 2019-02-21 11:04 | HP ---
ADMIT DATE: 02/20/2019 CHIEF COMPLAINT: Cough and shortness of breath. HISTORY OF PRESENT ILLNESS: The patient is a 68-year-old female with a history of chronic respiratory failure due to BOOP, who presented to the Emergency Room with the above complaint. She was hospitalized in December for treatment of healthcare-acquired pneumonia and had been discharged home on a tapering prednisone dose per Dr. Kirk. The patient reports that her breathing had been doing fairly well up until 2 days prior to this admission when she began experiencing more shortness of air and a cough productive of discolored sputum. She presented to the Emergency Room, chest x-ray did not show an acute infiltrate. She was given one dose of steroids and admitted for further care. PAST MEDICAL HISTORY: Recurrent healthcare-associated pneumonia with BOOP; end-stage renal disease, on dialysis; diabetes mellitus type 2, insulin-dependent; hypertension; chronic back pain; osteoporosis; history of C. difficile colitis; osteoarthritis; mild coronary artery disease; allergic rhinitis. PAST SURGICAL HISTORY: , tonsillectomy, bilateral tubal ligation, bilateral rotator cuff repair, closed reduction and internal fixation of left ankle after fracture 10/01, cholecystectomy, hysterectomy. ALLERGIES: The patient has no known drug allergies. HOME MEDICATIONS: Albuterol p.r.n., alendronate 70 mg every other week, amlodipine 10 mg daily, aspirin 81 mg daily, calcium with vitamin D daily, Zyrtec 10 mg daily, clonidine 0.1 mg b.i.d., Flonase nasal spray, gabapentin 200 mg b.i.d., hydralazine 50 mg t.i.d., [place] 5/325 p.r.n., NovoLog insulin and the patient has been taking 4-6 units before meals. Lantus insulin, the patient has taken 8 units at bedtime; Combivent inhaler; labetalol 200 mg daily; omeprazole 40 mg daily; prednisone 20 mg daily; Renvela 800 mg 2 tablets t.i.d. a.c.; renal vitamin daily. FAMILY HISTORY: Noncontributory. SOCIAL HISTORY: The patient is single. She lives at home with her daughter. She has never smoked cigarettes and does not drink alcohol to excess. REVIEW OF SYSTEMS: The patient may have had one fever at home. She denies other episodes of chest pain or palpitations. She denies abdominal pain, nausea or vomiting. Her blood sugars have been fairly well controlled with her insulin. Her chronic back pain has been stable with her hydrocodone as needed. She has not missed any dialysis treatments. Her lower extremity edema has improved since her last hospitalization. PHYSICAL EXAMINATION: GENERAL: The patient is alert and oriented x 3, sitting up comfortably in bed, in no acute distress. HEENT: PERRL, EOMI, sclerae clear. Oropharynx: Mucous membranes moist. NECK: Supple, without lymphadenopathy. CHEST: Breath sounds decreased throughout. Crackles in the bilateral bases. Mild expiratory wheezes present. CARDIOVASCULAR: Regular rhythm without murmur. ABDOMEN: Soft, nontender, normoactive bowel sounds are present. EXTREMITIES: Bilateral lower extremities are without edema. ASSESSMENT AND PLAN: 1. 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 The patient's oxygen saturations have been stable overnight with oxygen per nasal cannula. She received one dose of steroids in the Emergency Department. Chest x-ray is reported to be without acute infiltrate. We will await pulmonary consultation for further treatment of her condition. A cough syrup is ordered to be used at bedtime only for cough, interfering with sleep, per patient's request. 2. Hypertension. Continue home medication. 3. End-stage renal disease. Continue dialysis as scheduled. 4. Diabetes mellitus type 2. The patient's glucose is significantly elevated due to the steroids. The patient is fearful of low glucose, so high amounts of insulin are not ordered at this time. We will follow her fingersticks and adjust as indicated. 5. Chronic back pain. This is stable, continue hydrocodone as needed. 6. Debility. Resume physical and occupational therapy per patient's request. ARELI MATIAS MD DR: EVONNE/ronaldo JOB#: [id number] / [id number] NISHA
[2019-02-21] MEDS: FLUTICASONE 50MCG/NASAL SPRAY 16GM BOTTLE. NS SCH (13:38)
[2019-02-21] MEDS: FOLIC/VIT B COMP W-C (RENAL) TABLET. PO SCH (13:38)
[2019-02-21] MEDS: PANTOPRAZOLE 40 MG TABLET.DR. PO SCH (13:39)
[2019-02-21] MEDS: SEVELAMER CARBONATE 800 MG TABLET. PO SCH ×2 (13:39→17:34)
[2019-02-21] MEDS: CALCIUM CARB/VIT D3 500/200 TABLET. PO SCH (13:39)
[2019-02-21] MEDS: LACTOBACILLUS RHAMNOSUS GG 1 CAPSULE. PO SCH ×2 (13:39→20:57)
[2019-02-21] MEDS: CETIRIZINE HCL 10 MG TABLET. PO SCH (13:39)
[2019-02-21] MEDS: GABAPENTIN 100 MG CAPSULE. PO SCH ×2 (13:39→20:57)
[2019-02-21] MEDS: cloNIDine HCL 0.1 MG TABLET PO SCH ×2 (13:40→20:58)
[2019-02-21] MEDS: ASPIRIN CHEWABLE 81 MG TABLET. PO SCH (13:40)
[2019-02-21] MEDS: amLODIPine BESYLATE 10 MG TABLET PO SCH (13:40)
[2019-02-21] MEDS: LABETALOL HCL 200 MG TABLET PO SCH (13:41)
[2019-02-21] MEDS: HYDROcodone/APAP 5/325MG 1 TAB TABLET PO PRN ×2 (14:58→21:06)
[2019-02-21 15:00] VITALS: BP 133/58
--- NOTE | 2019-02-21 16:23 | PDOC ---
PULMONARY PROGRESS NOTES Vitals Vital Signs Date Time Temp Pulse Resp B/P (MAP) Pulse Ox O2 Delivery O2 Flow Rate FiO2 02/21/19 15:00 98.6 92 16 133/58 (83) 99 Nasal Cannula 2.0 98.6 General: Alert, No acute distress Lungs: Crackles Cardiovascular: S1, S2 Abdomen: Soft, Non-tender Extremities: No Edema Labs Laboratory Tests Test 02/20/19 18:10 02/20/19 19:14 02/21/19 02:00 02/21/19 07:32 White Blood Count 6.7 x10^3/uL (4.0-11.0) Red Blood Count 3.52 x10^6/uL (3.50-5.40) Hemoglobin 11.0 g/dL (12.0-15.5) Hematocrit 34.2 % (36.0-47.0) Mean Corpuscular Volume 97 fL (79-100) Mean Corpuscular Hemoglobin 31 pg (25-35) Mean Corpuscular Hemoglobin Concent 32 g/dL (31-37) Red Cell Distribution Width 18.8 % (11.5-14.5) Platelet Count 105 x10^3/uL (140-400) Neutrophils (%) (Auto) 70 % (31-73) Lymphocytes (%) (Auto) 18 % (24-48) Monocytes (%) (Auto) 10 % (0-9) Eosinophils (%) (Auto) 1 % (0-3) Basophils (%) (Auto) 1 % (0-3) Neutrophils # (Auto) 4.7 x10^3uL (1.8-7.7) Lymphocytes # (Auto) 1.2 x10^3/uL (1.0-4.8) Monocytes # (Auto) 0.7 x10^3/uL (0.0-1.1) Eosinophils # (Auto) 0.1 x10^3/uL (0.0-0.7) Basophils # (Auto) 0.0 x10^3/uL (0.0-0.2) Sodium Level 141 mmol/L (136-145) Potassium Level 3.7 mmol/L (3.5-5.1) Chloride Level 102 mmol/L (98-107) Carbon Dioxide Level 28 mmol/L (21-32) Anion Gap 11 (6-14) Blood Urea Nitrogen 42 mg/dL (7-20) Creatinine 6.5 mg/dL (0.6-1.0) Estimated GFR (Cockcroft-Gault) 6.3 BUN/Creatinine Ratio 6 (6-20) Glucose Level 134 mg/dL (70-99) Lactic Acid Level 1.0 mmol/L (0.4-2.0) Calcium Level 8.6 mg/dL (8.5-10.1) Total Bilirubin 0.5 mg/dL (0.2-1.0) Aspartate Amino Transf (AST/SGOT) 39 U/L (15-37) Alanine Aminotransferase (ALT/SGPT) 28 U/L (14-59) Alkaline Phosphatase 191 U/L (46-116) Creatine Kinase 36 U/L (26-192) Creatine Kinase MB (Mass) 1.3 ng/mL (0.0-3.6) Creatine Kinase MB Relative Index % (0-4) Troponin I Quantitative 0.037 ng/mL (0.000-0.055) 0.047 ng/mL (0.000-0.055) YV-Wog-F-Type Natriuretic Peptide 27916 pg/mL (0-124) Total Protein 5.9 g/dL (6.4-8.2) Albumin 2.7 g/dL (3.4-5.0) Albumin/Globulin Ratio 0.8 (1.0-1.7) Influenza Type A Antigen Negative (NEGATIVE) Influenza Type B Antigen Negative (NEGATIVE) Glucose (Fingerstick) 438 mg/dL (70-99) Test 02/21/19 11:53 Glucose (Fingerstick) 166 mg/dL (70-99) Laboratory Tests Test 02/20/19 18:10 02/20/19 19:14 02/21/19 02:00 02/21/19 07:32 White Blood Count 6.7 x10^3/uL (4.0-11.0) Red Blood Count 3.52 x10^6/uL (3.50-5.40) Hemoglobin 11.0 g/dL (12.0-15.5) Hematocrit 34.2 % (36.0-47.0) Mean Corpuscular Volume 97 fL (79-100) Mean Corpuscular Hemoglobin 31 pg (25-35) Mean Corpuscular Hemoglobin Concent 32 g/dL (31-37) Red Cell Distribution Width 18.8 % (11.5-14.5) Platelet Count 105 x10^3/uL (140-400) Neutrophils (%) (Auto) 70 % (31-73) Lymphocytes (%) (Auto) 18 % (24-48) Monocytes (%) (Auto) 10 % (0-9) Eosinophils (%) (Auto) 1 % (0-3) Basophils (%) (Auto) 1 % (0-3) Neutrophils # (Auto) 4.7 x10^3uL (1.8-7.7) Lymphocytes # (Auto) 1.2 x10^3/uL (1.0-4.8) Monocytes # (Auto) 0.7 x10^3/uL (0.0-1.1) Eosinophils # (Auto) 0.1 x10^3/uL (0.0-0.7) Basophils # (Auto) 0.0 x10^3/uL (0.0-0.2) Sodium Level 141 mmol/L (136-145) Potassium Level 3.7 mmol/L (3.5-5.1) Chloride Level 102 mmol/L (98-107) Carbon Dioxide Level 28 mmol/L (21-32) Anion Gap 11 (6-14) Blood Urea Nitrogen 42 mg/dL (7-20) Creatinine 6.5 mg/dL (0.6-1.0) Estimated GFR (Cockcroft-Gault) 6.3 BUN/Creatinine Ratio 6 (6-20) Glucose Level 134 mg/dL (70-99) Lactic Acid Level 1.0 mmol/L (0.4-2.0) Calcium Level 8.6 mg/dL (8.5-10.1) Total Bilirubin 0.5 mg/dL (0.2-1.0) Aspartate Amino Transf (AST/SGOT) 39 U/L (15-37) Alanine Aminotransferase (ALT/SGPT) 28 U/L (14-59) Alkaline Phosphatase 191 U/L (46-116) Creatine Kinase 36 U/L (26-192) Creatine Kinase MB (Mass) 1.3 ng/mL (0.0-3.6) Creatine Kinase MB Relative Index % (0-4) Troponin I Quantitative 0.037 ng/mL (0.000-0.055) 0.047 ng/mL (0.000-0.055) GA-Tpg-T-Type Natriuretic Peptide 69182 pg/mL (0-124) Total Protein 5.9 g/dL (6.4-8.2) Albumin 2.7 g/dL (3.4-5.0) Albumin/Globulin Ratio 0.8 (1.0-1.7) Influenza Type A Antigen Negative (NEGATIVE) Influenza Type B Antigen Negative (NEGATIVE) Glucose (Fingerstick) 438 mg/dL (70-99) Test 02/21/19 11:53 Glucose (Fingerstick) 166 mg/dL (70-99) Medications Active Scripts Medications Dose Route/Sig Max Daily Dose Days Date Category Prednisone 20 Mg Tablet 30 Mg PO DAILY 28 01/12/19 Rx Novolog (Insulin Aspart) 100 Unit/1 Ml Cartridge 10-40 Unit SQ TIDBFRMEAL 01/12/19 Rx Lantus (Insulin Glargine,Hum.rec.anlog) 100 Unit/1 Ml Vial 20 Units SQ HS 30 01/12/19 Rx Proair Respiclick (Albuterol Sulfate) 90 Mcg Aer.pow.ba 1 Puff IH PRN Q6HRS PRN 04/10/18 Rx Culturelle (Lactobacillus Rhamnosus Gg) 1 Each Cap.sprink 1 Cap PO BID 12/15/17 Rx Combivent Respimat Inhal (Ipratropium/Albuterol Sulfate) 4 Gm Aer.w.adap 2 Inh IH QID 09/02/17 Rx Labetalol Hcl 200 Mg Tablet 1 Tab PO DAILY 30 09/02/17 Rx Omeprazole 40 Mg Capsule.dr 40 Mg PO DAILY 09/01/17 Reported Hydrocodone-Apap 5-325 (Hydrocodone Bit/Acetaminophen) 1 Each Tablet 1 Tab PO Q6HRS PRN 09/01/17 Reported Hydralazine Hcl 50 Mg Tablet 1 Tab PO TID 04/08/17 Reported Gabapentin (Gabapentin) 100 Mg Capsule 200 Mg PO BID 04/08/17 Reported Cetirizine Hcl 10 Mg Tablet 1 Tab PO DAILY 10/29/16 Reported Tylenol (Acetaminophen) 325 Mg Tablet 2 Tab PO PRN Q6HRS PRN 10/29/16 Reported Clonidine Hcl 0.1 Mg Tablet 0.1 Mg PO BID 09/17/16 Reported Alendronate Sodium 70 Mg Tablet 70 Mg PO Q2WKS 09/17/16 Reported Flonase Allergy Relief (Fluticasone Propionate) 9.9 Ml [place].susp 2 Sprays NS DAILY 09/17/16 Reported Children's Aspirin (Aspirin) 81 Mg Tab.chew 81 Mg PO DAILYWBKFT 30 11/04/15 Rx Calcium 600 + Vit D 400 Caplet (Calcium Carbonate/Vitamin D3) 1 Each Tablet 1 Each PO DAILY 10/24/15 Reported Renvela (Sevelamer Carbonate) 800 Mg Tablet 2 Tab PO [id number] 12/21/14 Reported Norvasc (Amlodipine Besylate) 10 Mg Tablet 10 Mg PO DAILY 11/11/13 Reported Windy-Abby Rx Tablet (Vit B Cmplx 3/Fa/Vit C/Biotin) 1 Each Tablet 1 Each PO DAILY 11/11/13 Reported Impression . SEE DICTATED NOTE D/C SOON IF CONTINUE TO DO WELL OK TO D/C IN AM THANKS TAMI RAMIREZ MD February 21, 2019 16:23
[2019-02-21 19:44] VITALS: BP 127/55
[2019-02-21] MEDS ORDERED: INSULIN GLARGINE 300 UNITS/3 ML INSULN.PEN. SQ SCH (21:00)
[2019-02-21 23:54] VITALS: BP 121/52
[2019-02-22 03:44] VITALS: BP 158/68
--- NOTE | 2019-02-22 04:05 | CONS ---
DATE OF CONSULTATION: 02/21/2019 ATTENDING PHYSICIAN: Nicolasa Banuelos M.D. REASON FOR CONSULTATION: The patient seen in pulmonary consultation at the request of Dr. Banuelos for increasing shortness of air. HISTORY OF PRESENT ILLNESS: The patient is well known to me from previous hospitalization. She actually underwent bronchoscopy during the last admission. She was being treated for presumptive diagnosis of BOOP as an outpatient, was on a taper dose of prednisone, presented with increasing shortness of breath over the last 2-3 days, coughing up some sputum. She was admitted. She had a chest x-ray, which I reviewed. The x-ray actually looks slightly better, definitely does not look worse. The patient denies fever, chills, nausea, vomiting, diarrhea. PAST MEDICAL HISTORY: Remarkable for recurrent mucus plugging, recurrent pneumonia, end-stage renal disease on hemodialysis, type 2 diabetes, hypertension, chronic pain, has had previous C. diff ____ osteoarthritis, coronary artery disease and allergic rhinitis. She was recently started on prednisone as an outpatient for presumptive diagnosis of BOOP. PAST SURGICAL HISTORY: Status post bilateral tubal ligation, , previous left ankle surgery, cholecystectomy, hysterectomy, bronchoscopy. ALLERGIES: No known drug allergies. CURRENT MEDICATIONS: List was reviewed. FAMILY HISTORY: No family history of lung disorders. SOCIAL HISTORY: She has never smoked. REVIEW OF SYSTEMS: CONSTITUTIONAL: No fever or chills. EYES: No change in visual acuity. HEENT: No nasal congestion or sore throat. PULMONARY: As indicated above. CARDIOVASCULAR: No chest pain. No pressure. GASTROINTESTINAL: No nausea, vomiting, diarrhea. GENITOURINARY: No dysuria or frequency. MUSCULOSKELETAL: No localized muscle aches or joint pain. PHYSICAL EXAMINATION: GENERAL: The patient was afebrile. She is currently on 2 liters. HEENT: Eyes, the sclerae were nonicteric. LUNGS: Adequate airway flow with mild expiratory wheeze. CARDIOVASCULAR: Regular rate and rhythm with S1, S2, no S3. ABDOMEN: Soft. EXTREMITIES: No clubbing, cyanosis or edema. LABORATORY DATA: Chest x-ray reviewed as indicated above. Labs were reviewed. White count was normal. Serology was negative. Electrolytes were noted. Troponin was not elevated. IMPRESSION: 1. 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 2. Abnormal x-ray. X-ray is actually improving since the patient has been on prednisone for the past 4-6 weeks. 4. Acute exacerbation of chronic obstructive pulmonary disease. 5. Acute on chronic respiratory failure. 6. Acute nonspecific bronchitis. PLAN: 1. Recommend current medical management. 2. Possible discharge as early as tomorrow. 3. Follow up in my office. The patient will continue her scheduled prednisone taper as I had previously provided for her in the office. 4. Continue home medications. 5. Agree with bronchodilators and guaifenesin with codeine for the cough. I do appreciate the privilege in sharing in the patient's care. TAMI RAMIREZ MD DR: ALYSIA/ronaldo JOB#: [id number] / [id number]
[2019-02-22 07:30] VITALS: BP 149/67
[2019-02-22] MEDS: INSULIN LISPRO 300 UNITS/3 ML INSULN.PEN. SQ SCH ×6 (08:00→18:34)
[2019-02-22] MEDS: SEVELAMER CARBONATE 800 MG TABLET. PO SCH ×3 (08:19→18:27)
[2019-02-22] MEDS: PANTOPRAZOLE 40 MG TABLET.DR. PO SCH (08:20)
[2019-02-22] MEDS: ASPIRIN CHEWABLE 81 MG TABLET. PO SCH (08:20)
[2019-02-22] MEDS: LACTOBACILLUS RHAMNOSUS GG 1 CAPSULE. PO SCH ×2 (08:20→21:04)
[2019-02-22] MEDS: FOLIC/VIT B COMP W-C (RENAL) TABLET. PO SCH (08:20)
[2019-02-22] MEDS: GABAPENTIN 100 MG CAPSULE. PO SCH ×2 (08:20→21:04)
[2019-02-22] MEDS: cloNIDine HCL 0.1 MG TABLET PO SCH ×2 (08:21→21:04)
[2019-02-22] MEDS: CALCIUM CARB/VIT D3 500/200 TABLET. PO SCH (08:21)
[2019-02-22] MEDS: LABETALOL HCL 200 MG TABLET PO SCH (08:21)
[2019-02-22] MEDS: CETIRIZINE HCL 10 MG TABLET. PO SCH (08:21)
[2019-02-22] MEDS: FLUTICASONE 50MCG/NASAL SPRAY 16GM BOTTLE. NS SCH (08:22)
[2019-02-22] MEDS: amLODIPine BESYLATE 10 MG TABLET PO SCH (08:22)
--- NOTE | 2019-02-22 08:29 | NUR ---
SW following Pt. PT/OT recommends Home health. SW will arrange HH if ordered by Physician.
[2019-02-22] MEDS: HYDROcodone/APAP 5/325MG 1 TAB TABLET PO PRN (08:37)
--- NOTE | 2019-02-22 08:53 | PDOC ---
PROGRESS NOTES Subjective Subjective Patient feels breathing is some better, still feels weak. Objective Objective Vital Signs Date Time Temp Pulse Resp B/P (MAP) Pulse Ox O2 Delivery O2 Flow Rate FiO2 02/22/19 08:37 99 Nasal Cannula 2.0 02/22/19 08:22 80 149/67 02/22/19 07:30 97.7 17 97.7 Intake and Output 02/22/19 07:00 Intake Total 930 ml Balance 930 ml Intake Oral 930 ml Physical Exam Abdomen: Normal bowel sounds, Soft, No tenderness Heart: Regular rate Extremities: No edema General: Alert, Oriented X3, No acute distress Lungs: Other (BS decreased throughout, few crackles bilateral bases, no wheezes heard) Plan Plan of Care 1. Acute on chronic respiratory failure with BOOP - stable. Dr Kirk feels her CXR has improved from last admission. Will give increased dose of po Prednisone from what she was on at home while she is here. Continue O2 and nebs. 2. ESRD - stable, continue dialysis as scheduled. 3. DM2 - blood sugars still elevated, increase insulins, patient encouraged to take the SS also when indicated. 4. HTN - controlled, continue home meds. 5. debility - continue therapies, patient agreeable to home health when ready for discharge. 6. chronic back pain - stable, continue [place] prn. Comment Review of Relevant I have reviewed the following items cosmo (where applicable) has been applied. Labs Laboratory Tests Test 02/20/19 18:10 02/20/19 19:14 02/21/19 02:00 02/21/19 07:32 White Blood Count 6.7 x10^3/uL (4.0-11.0) Red Blood Count 3.52 x10^6/uL (3.50-5.40) Hemoglobin 11.0 g/dL (12.0-15.5) Hematocrit 34.2 % (36.0-47.0) Mean Corpuscular Volume 97 fL (79-100) Mean Corpuscular Hemoglobin 31 pg (25-35) Mean Corpuscular Hemoglobin Concent 32 g/dL (31-37) Red Cell Distribution Width 18.8 % (11.5-14.5) Platelet Count 105 x10^3/uL (140-400) Neutrophils (%) (Auto) 70 % (31-73) Lymphocytes (%) (Auto) 18 % (24-48) Monocytes (%) (Auto) 10 % (0-9) Eosinophils (%) (Auto) 1 % (0-3) Basophils (%) (Auto) 1 % (0-3) Neutrophils # (Auto) 4.7 x10^3uL (1.8-7.7) Lymphocytes # (Auto) 1.2 x10^3/uL (1.0-4.8) Monocytes # (Auto) 0.7 x10^3/uL (0.0-1.1) Eosinophils # (Auto) 0.1 x10^3/uL (0.0-0.7) Basophils # (Auto) 0.0 x10^3/uL (0.0-0.2) Sodium Level 141 mmol/L (136-145) Potassium Level 3.7 mmol/L (3.5-5.1) Chloride Level 102 mmol/L (98-107) Carbon Dioxide Level 28 mmol/L (21-32) Anion Gap 11 (6-14) Blood Urea Nitrogen 42 mg/dL (7-20) Creatinine 6.5 mg/dL (0.6-1.0) Estimated GFR (Cockcroft-Gault) 6.3 BUN/Creatinine Ratio 6 (6-20) Glucose Level 134 mg/dL (70-99) Lactic Acid Level 1.0 mmol/L (0.4-2.0) Calcium Level 8.6 mg/dL (8.5-10.1) Total Bilirubin 0.5 mg/dL (0.2-1.0) Aspartate Amino Transf (AST/SGOT) 39 U/L (15-37) Alanine Aminotransferase (ALT/SGPT) 28 U/L (14-59) Alkaline Phosphatase 191 U/L (46-116) Creatine Kinase 36 U/L (26-192) Creatine Kinase MB (Mass) 1.3 ng/mL (0.0-3.6) Creatine Kinase MB Relative Index % (0-4) Troponin I Quantitative 0.037 ng/mL (0.000-0.055) 0.047 ng/mL (0.000-0.055) OP-Iqa-O-Type Natriuretic Peptide 56037 pg/mL (0-124) Total Protein 5.9 g/dL (6.4-8.2) Albumin 2.7 g/dL (3.4-5.0) Albumin/Globulin Ratio 0.8 (1.0-1.7) Influenza Type A Antigen Negative (NEGATIVE) Influenza Type B Antigen Negative (NEGATIVE) Glucose (Fingerstick) 438 mg/dL (70-99) Test 02/21/19 11:53 02/21/19 16:59 02/21/19 20:46 02/22/19 07:41 Glucose (Fingerstick) 166 mg/dL (70-99) 302 mg/dL (70-99) 205 mg/dL (70-99) 264 mg/dL (70-99) Laboratory Tests Test 02/21/19 11:53 02/21/19 16:59 02/21/19 20:46 02/22/19 07:41 Glucose (Fingerstick) 166 mg/dL (70-99) 302 mg/dL (70-99) 205 mg/dL (70-99) 264 mg/dL (70-99) Microbiology 02/20/19 Blood Culture - Preliminary, Resulted NO GROWTH AFTER 1 DAY Medications Current Medications Albuterol/ Ipratropium (Duoneb) 3 ml 1X ONCE NEB Last administered on 02/20/19at 19:17; Start 02/20/19 at 18:30; Stop 02/20/19 at 18:34; Status DC Dexamethasone Sodium Phosphate (Decadron) 10 mg 1X ONCE IV ; Start 02/20/19 at 18:30; Stop 02/20/19 at 18:31; Status Cancel Aspirin (Ko Aspirin) 325 mg 1X ONCE PO Last administered on 02/20/19at 19:06; Start 02/20/19 at 18:30; Stop 02/20/19 at 18:34; Status DC Fentanyl Citrate (Fentanyl 2ml Vial) 50 mcg 1X ONCE IV Last administered on 02/20/19at 19:06; Start 02/20/19 at 18:30; Stop 02/20/19 at 18:34; Status DC Dexamethasone Sodium Phosphate (Decadron) 10 mg 1X ONCE IV Last administered on 02/20/19at 19:05; Start 02/20/19 at 19:00; Stop 02/20/19 at 19:01; Status DC Ondansetron HCl (Zofran) 4 mg PRN Q8HRS PRN IV NAUSEA/VOMITING; Start 02/20/19 at 20:00; Stop 02/21/19 at 19:59; Status DC Acetaminophen (Tylenol) 650 mg PRN Q4HRS PRN PO FEVER; Start 02/20/19 at 20:00; Stop 02/21/19 at 09:06; Status DC Albuterol/ Ipratropium (Duoneb) 3 ml RTQID NEB ; Start 02/20/19 at 20:00; Stop 02/21/19 at 08:42; Status DC Insulin Human Lispro (HumaLOG) 0-5 UNITS TIDWMEALS SQ ; Start 02/21/19 at 08:00; Stop 02/21/19 at 09:05; Status DC Dextrose (Dextrose 50%-Water Syringe) 12.5 gm PRN Q15MIN PRN IV SEE COMMENTS; Start 02/20/19 at 20:00; Stop 02/21/19 at 09:05; Status DC Acetaminophen (Tylenol) 650 mg PRN Q6HRS PRN PO MILD PAIN; Start 02/21/19 at 08:45 Amlodipine Besylate (Norvasc) 10 mg DAILY PO Last administered on 02/22/19 08:22; Start 02/21/19 at 09:00 Aspirin (Children'S Aspirin) 81 mg DAILYWBKFT PO Last administered on 02/22/19 08:20; Start 02/21/19 at 09:00 Cetirizine HCl (ZyrTEC) 10 mg DAILY PO Last administered on 02/22/19at 08:21; Start 02/21/19 at 09:00 Clonidine HCl (Catapres) 0.1 mg BID PO Last administered on 02/22/19 08:21; Start 02/21/19 at 09:00 Gabapentin (Neurontin) 200 mg BID PO Last administered on 02/22/19 08:20; Start 02/21/19 at 09:00 Acetaminophen/ Hydrocodone Bitart (Lortab 5/325) 1 tab PRN Q6HRS PRN PO MODERATE PAIN Last administered on 02/22/19at 08:37; Start 02/21/19 at 08:45 Lactobacillus Rhamnosus (Culturelle) 1 cap BID PO Last administered on 02/22/19at 08:20; Start 02/21/19 at 09:00 Sevelamer Carbonate (Renvela) 1,600 mg TIDWMEALS PO Last administered on 02/22/19 08:19; Start 02/21/19 at 13:00 Calcium/Vitamin D (Oscal D 500mg/ 200uts) 1 tab DAILY08 PO Last administered on 02/22/19 08:21; Start 02/21/19 at 09:00 Fluticasone Propionate (Flonase) 2 spray DAILY NS Last administered on 02/22/19 08:22; Start 02/21/19 at 10:00 Hydralazine HCl (Apresoline) 50 mg TID PO Last administered on 02/22/19 08:21; Start 02/21/19 at 10:00 Labetalol HCl (Trandate) 200 mg DAILY PO Last administered on 02/22/19 08:21; Start 02/21/19 at 10:00 Pantoprazole Sodium (Protonix) 40 mg DAILYAC PO Last administered on 02/22/19 08:20; Start 02/21/19 at 11:30 Vitamin B Complex/ Vitamin C ([place]-Abby) 1 tab DAILY PO Last administered on 02/22/19 08:20; Start 02/21/19 at 10:00 Insulin Human Lispro (HumaLOG) 8 units TIDAC SQ Last administered on 02/22/19 08:30; Start 02/21/19 at 08:45 Insulin Glargine (Lantus) 8 units QHS SQ Last administered on 02/21/19at 21:02; Start 02/21/19 at 21:00 Albuterol Sulfate (Ventolin Neb Soln) 2.5 mg PRN Q4HRS PRN NEB SHORTNESS OF BREATH; Start 02/21/19 at 08:30 Guaifenesin/ Codeine Phosphate (Robitussin Ac) 5 ml PRN Q6HRS PRN PO COUGH; Start 02/21/19 at 09:00 Insulin Human Lispro (HumaLOG) 0-9 UNITS TIDWMEALS SQ Last administered on 02/21/19at 17:40; Start 02/21/19 at 12:00 Dextrose (Dextrose 50%-Water Syringe) 12.5 gm PRN Q15MIN PRN IV SEE COMMENTS; Start 02/21/19 at 09:00 Sodium Chloride 1,000 ml @ 1,000 mls/hr Q1H PRN IV hypotension; Start 02/21/19 at 09:01; Stop 02/21/19 at 15:00; Status DC Sodium Chloride 1,000 ml @ 400 mls/hr Q2H30M PRN IV PATENCY; Start 02/21/19 at 09:01; Stop 02/21/19 at 21:00; Status DC Info (PHARMACY MONITORING -- do not chart) 1 each PRN DAILY PRN MC SEE COMMENTS; Start 02/21/19 at 09:15; Status UNV Info (PHARMACY MONITORING -- do not chart) 1 each PRN DAILY PRN MC SEE COMMENTS; Start 02/21/19 at 09:15 Active Scripts Active Prednisone 20 Mg Tablet 30 Mg PO DAILY 28 Days Novolog (Insulin Aspart) 100 Unit/1 Ml Cartridge 10-40 Unit SQ TIDBFRMEAL 30 Days Lantus (Insulin Glargine,Hum.rec.anlog) 100 Unit/1 Ml Vial 20 Units SQ HS 30 Days Proair Respiclick (Albuterol Sulfate) 90 Mcg Aer.pow.ba 1 Puff IH PRN Q6HRS PRN Culturelle (Lactobacillus Rhamnosus Gg) 1 Each Cap.sprink 1 Cap PO BID 30 Days Combivent Respimat Inhal (Ipratropium/Albuterol Sulfate) 4 Gm Aer.w.adap 2 Inh IH QID 30 Days Labetalol Hcl 200 Mg Tablet 1 Tab PO DAILY 30 Days Children's Aspirin (Aspirin) 81 Mg Tab.chew 81 Mg PO DAILYWBKFT 30 Days Reported Omeprazole 40 Mg Capsule.dr 40 Mg PO DAILY Hydrocodone-Apap 5-325 (Hydrocodone Bit/Acetaminophen) 1 Each Tablet 1 Tab PO Q6HRS PRN Hydralazine Hcl 50 Mg Tablet 1 Tab PO TID Gabapentin (Gabapentin) 100 Mg Capsule 200 Mg PO BID Cetirizine Hcl 10 Mg Tablet 1 Tab PO DAILY Tylenol (Acetaminophen) 325 Mg Tablet 2 Tab PO PRN Q6HRS PRN Clonidine Hcl 0.1 Mg Tablet 0.1 Mg PO BID Alendronate Sodium 70 Mg Tablet 70 Mg PO Q2WKS Flonase Allergy Relief (Fluticasone Propionate) 9.9 Ml [place].susp 2 Sprays NS DAILY Calcium 600 + Vit D 400 Caplet (Calcium Carbonate/Vitamin D3) 1 Each Tablet 1 Each PO DAILY Renvela (Sevelamer Carbonate) 800 Mg Tablet 2 Tab PO [id number] Norvasc (Amlodipine Besylate) 10 Mg Tablet 10 Mg PO DAILY Windy-Abby Rx Tablet (Vit B Cmplx 3/Fa/Vit C/Biotin) 1 Each Tablet 1 Each PO DAILY Vitals/I & O Vital Sign - Last 24 Hours 02/21/19 02/21/19 02/21/19 02/21/19 13:39 13:40 13:40 13:41 Pulse 84 84 84 84 B/P (MAP) 155/64 155/64 155/64 155/64 02/21/19 02/21/19 02/21/19 02/21/19 13:54 14:58 15:00 17:46 Temp 98.6 98.6 Pulse 84 92 Resp 16 B/P (MAP) 155/64 133/58 (83) Pulse Ox 100 99 99 O2 Delivery Nasal Cannula Nasal Cannula O2 Flow Rate 2.0 2.0 02/21/19 02/21/19 02/21/19 02/21/19 19:35 19:44 20:57 20:58 Temp 98.2 98.2 Pulse 84 84 84 Resp 16 B/P (MAP) 127/55 (79) 127/55 127/55 Pulse Ox 98 O2 Delivery Nasal Cannula Nasal Cannula O2 Flow Rate 2.0 2.0 02/21/19 02/21/19 02/21/19 02/22/19 21:06 22:01 23:54 03:44 Temp 97.6 97.8 97.6 97.8 Pulse 74 75 Resp 17 16 16 B/P (MAP) 121/52 (75) 158/68 (98) Pulse Ox 97 97 O2 Delivery Room Air Nasal Cannula Nasal Cannula Nasal Cannula O2 Flow Rate 2.0 2.0 2.0 02/22/19 02/22/19 02/22/19 02/22/19 07:30 08:21 08:21 08:21 Temp 97.7 97.7 Pulse 80 80 80 80 Resp 17 B/P (MAP) 149/67 (94) 149/67 149/67 149/67 Pulse Ox 99 O2 Delivery Nasal Cannula O2 Flow Rate 2.0 02/22/19 02/22/19 08:22 08:37 Pulse 80 B/P (MAP) 149/67 Pulse Ox 99 O2 Delivery Nasal Cannula O2 Flow Rate 2.0 Intake and Output0 02/21/19 02/21/19 02/22/19 15:00 23:00 07:00 Intake Total 180 ml 300 ml 450 ml Balance 180 ml 300 ml 450 ml ARELI MATIAS MD February 22, 2019 08:53
--- NOTE | 2019-02-22 09:02 | PDOC ---
PULMONARY PROGRESS NOTES Subjective SOME ABD PAIN NOT MORE SOA Vitals Vital Signs Date Time Temp Pulse Resp B/P (MAP) Pulse Ox O2 Delivery O2 Flow Rate FiO2 02/22/19 08:39 Nasal Cannula 2.0 02/22/19 08:37 99 02/22/19 08:22 80 149/67 02/22/19 07:30 97.7 17 97.7 ROS: No Nausea, No Chest Pain, No Increase Cough General: Alert, No acute distress Lungs: Crackles Cardiovascular: S1, S2 Abdomen: Soft, Non-tender Extremities: No Edema Labs Laboratory Tests Test 02/20/19 18:10 02/20/19 19:14 02/21/19 02:00 02/21/19 07:32 White Blood Count 6.7 x10^3/uL (4.0-11.0) Red Blood Count 3.52 x10^6/uL (3.50-5.40) Hemoglobin 11.0 g/dL (12.0-15.5) Hematocrit 34.2 % (36.0-47.0) Mean Corpuscular Volume 97 fL (79-100) Mean Corpuscular Hemoglobin 31 pg (25-35) Mean Corpuscular Hemoglobin Concent 32 g/dL (31-37) Red Cell Distribution Width 18.8 % (11.5-14.5) Platelet Count 105 x10^3/uL (140-400) Neutrophils (%) (Auto) 70 % (31-73) Lymphocytes (%) (Auto) 18 % (24-48) Monocytes (%) (Auto) 10 % (0-9) Eosinophils (%) (Auto) 1 % (0-3) Basophils (%) (Auto) 1 % (0-3) Neutrophils # (Auto) 4.7 x10^3uL (1.8-7.7) Lymphocytes # (Auto) 1.2 x10^3/uL (1.0-4.8) Monocytes # (Auto) 0.7 x10^3/uL (0.0-1.1) Eosinophils # (Auto) 0.1 x10^3/uL (0.0-0.7) Basophils # (Auto) 0.0 x10^3/uL (0.0-0.2) Sodium Level 141 mmol/L (136-145) Potassium Level 3.7 mmol/L (3.5-5.1) Chloride Level 102 mmol/L (98-107) Carbon Dioxide Level 28 mmol/L (21-32) Anion Gap 11 (6-14) Blood Urea Nitrogen 42 mg/dL (7-20) Creatinine 6.5 mg/dL (0.6-1.0) Estimated GFR (Cockcroft-Gault) 6.3 BUN/Creatinine Ratio 6 (6-20) Glucose Level 134 mg/dL (70-99) Lactic Acid Level 1.0 mmol/L (0.4-2.0) Calcium Level 8.6 mg/dL (8.5-10.1) Total Bilirubin 0.5 mg/dL (0.2-1.0) Aspartate Amino Transf (AST/SGOT) 39 U/L (15-37) Alanine Aminotransferase (ALT/SGPT) 28 U/L (14-59) Alkaline Phosphatase 191 U/L (46-116) Creatine Kinase 36 U/L (26-192) Creatine Kinase MB (Mass) 1.3 ng/mL (0.0-3.6) Creatine Kinase MB Relative Index % (0-4) Troponin I Quantitative 0.037 ng/mL (0.000-0.055) 0.047 ng/mL (0.000-0.055) LN-Aii-E-Type Natriuretic Peptide 98240 pg/mL (0-124) Total Protein 5.9 g/dL (6.4-8.2) Albumin 2.7 g/dL (3.4-5.0) Albumin/Globulin Ratio 0.8 (1.0-1.7) Influenza Type A Antigen Negative (NEGATIVE) Influenza Type B Antigen Negative (NEGATIVE) Glucose (Fingerstick) 438 mg/dL (70-99) Test 02/21/19 11:53 02/21/19 16:59 02/21/19 20:46 02/22/19 07:41 Glucose (Fingerstick) 166 mg/dL (70-99) 302 mg/dL (70-99) 205 mg/dL (70-99) 264 mg/dL (70-99) Laboratory Tests Test 02/21/19 11:53 02/21/19 16:59 02/21/19 20:46 02/22/19 07:41 Glucose (Fingerstick) 166 mg/dL (70-99) 302 mg/dL (70-99) 205 mg/dL (70-99) 264 mg/dL (70-99) Medications Active Scripts Medications Dose Route/Sig Max Daily Dose Days Date Category Prednisone 20 Mg Tablet 30 Mg PO DAILY 01/12/19 Rx Novolog (Insulin Aspart) 100 Unit/1 Ml Cartridge 10-40 Unit SQ TIDBFRMEAL 01/12/19 Rx Lantus (Insulin Glargine,Hum.rec.anlog) 100 Unit/1 Ml Vial 20 Units SQ HS 30 01/12/19 Rx Proair Respiclick (Albuterol Sulfate) 90 Mcg Aer.pow.ba 1 Puff IH PRN Q6HRS PRN 04/10/18 Rx Culturelle (Lactobacillus Rhamnosus Gg) 1 Each Cap.sprink 1 Cap PO BID 12/15/17 Rx Combivent Respimat Inhal (Ipratropium/Albuterol Sulfate) 4 Gm Aer.w.adap 2 Inh IH QID 09/02/17 Rx Labetalol Hcl 200 Mg Tablet 1 Tab PO DAILY 30 09/02/17 Rx Omeprazole 40 Mg Capsule.dr 40 Mg PO DAILY 09/01/17 Reported Hydrocodone-Apap 5-325 (Hydrocodone Bit/Acetaminophen) 1 Each Tablet 1 Tab PO Q6HRS PRN 09/01/17 Reported Hydralazine Hcl 50 Mg Tablet 1 Tab PO TID 04/08/17 Reported Gabapentin (Gabapentin) 100 Mg Capsule 200 Mg PO BID 04/08/17 Reported Cetirizine Hcl 10 Mg Tablet 1 Tab PO DAILY 10/29/16 Reported Tylenol (Acetaminophen) 325 Mg Tablet 2 Tab PO PRN Q6HRS PRN 10/29/16 Reported Clonidine Hcl 0.1 Mg Tablet 0.1 Mg PO BID 09/17/16 Reported Alendronate Sodium 70 Mg Tablet 70 Mg PO Q2WKS 09/17/16 Reported Flonase Allergy Relief (Fluticasone Propionate) 9.9 Ml [place].susp 2 Sprays NS DAILY 09/17/16 Reported Children's Aspirin (Aspirin) 81 Mg Tab.chew 81 Mg PO DAILYWBKFT 30 11/04/15 Rx Calcium 600 + Vit D 400 Caplet (Calcium Carbonate/Vitamin D3) 1 Each Tablet 1 Each PO DAILY 1/8/16 Reported Renvela (Sevelamer Carbonate) 800 Mg Tablet 2 Tab PO [id number] 12/21/14 Reported Norvasc (Amlodipine Besylate) 10 Mg Tablet 10 Mg PO DAILY 11/11/13 Reported Windy-Abby Rx Tablet (Vit B Cmplx 3/Fa/Vit C/Biotin) 1 Each Tablet 1 Each PO DAILY 11/11/13 Reported Impression . IMPRESSION: 1. 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 2. Abnormal x-ray. X-ray is actually improving since the patient has been on prednisone for the past 4-6 weeks. 4. Acute exacerbation of chronic obstructive pulmonary disease. 5. Acute on chronic respiratory failure. 6. Acute nonspecific bronchitis. Plan . POSSIBLE D/C AFTER HD ON 02/23 WILL DEFER TO [facility] CHEUNG BY ME PT TO CONTINUE TAPER SCHEDULE PRED I PROVIDED HER IN OFFICE FOLLOW UP WITH ME INSTRUCTED TO DO SO PT HAS APPOINTMENT TAMI RAMIREZ MD February 22, 2019 09:02
--- NOTE | 2019-02-22 09:20 | PDOC ---
Renal-Progress Notes Subjective Notes Notes LESS SOB History of Present Illness Hx of present illness IMPROVING Vitals Vitals Vital Signs Date Time Temp Pulse Resp B/P (MAP) Pulse Ox O2 Delivery O2 Flow Rate FiO2 02/22/19 08:39 Nasal Cannula 2.0 02/22/19 08:37 99 02/22/19 08:22 80 149/67 02/22/19 07:30 97.7 17 97.7 Weight Weight [ ] I.O. Intake and Output Intake and Output 02/22/19 07:00 Intake Total 930 ml Balance 930 ml Intake Oral 930 ml Labs Labs Laboratory Tests Test 02/21/19 11:53 02/21/19 16:59 02/21/19 20:46 02/22/19 07:41 Glucose (Fingerstick) 166 mg/dL (70-99) 302 mg/dL (70-99) 205 mg/dL (70-99) 264 mg/dL (70-99) Micro Micro Microbiology 02/20/19 Blood Culture - Preliminary, Resulted NO GROWTH AFTER 1 DAY Review of Systems Constitutional: yes: alert, oriented Ears/Nose/Throat: Yes: no symptom reported Eyes: Yes: no symptom reported Pulmonary: Yes no symptom reported Cardiovascular: Yes no symptom reported Gastrointestional: Yes: no symptom reported Genitourinary: Yes: no symptom reported Skin: Yes no symptom reported Psychiatric/Neurological: Yes: no symptom reported Endocrine: Yes: no symptom reported Physical Exam General Appearance: no apparent distress Skin: warm Respiratory: decreased breath sounds Heart: S1S2 Abdomen: soft, bowel sounds present Genitourinary: bladder flat Extremities: pulses present Neurology: alert Musculoskeletal: Other Assessment Assessment IMP ESRD ANEMIA DYSPNEA BOOP COPD HTN DM II PLAN PULM EVAL AND TX HD TOMORROW AND THEN POSSIBLE D/C D/W DAKOTA NEWTON MD February 22, 2019 09:20
[2019-02-22] MEDS: predniSONE 20 MG TABLET PO SCH (09:47)
[2019-02-22 10:33] VITALS: BP 111/48
[2019-02-22 15:45] VITALS: BP 101/47
[2019-02-22 19:20] VITALS: BP 115/52
[2019-02-22] MEDS: INSULIN GLARGINE 300 UNITS/3 ML INSULN.PEN. SQ SCH (21:15)
[2019-02-22 23:25] VITALS: BP 145/57
[2019-02-23 03:25] VITALS: BP 159/64
[2019-02-23] MEDS ORDERED: IV NORMAL SALINE 1000ML BAG 1,000 ML IV PRN ×2 (06:16)
[2019-02-23] MEDS ORDERED: diphenhydrAMINE 50 MG/ML VIAL IV PRN ×2 (06:30)
[2019-02-23] MEDS ORDERED: DIALYSIS PATIENT. MC PRN (06:30)
[2019-02-23] MEDS: INSULIN LISPRO 300 UNITS/3 ML INSULN.PEN. SQ SCH ×8 (07:30→22:00)
[2019-02-23] MEDS: SEVELAMER CARBONATE 800 MG TABLET. PO SCH ×3 (08:00→18:00)
--- NOTE | 2019-02-23 08:30 | NUR ---
Patient at hemodialysis, held antihypertensive meds.
--- NOTE | 2019-02-23 08:42 | PDOC ---
PROGRESS NOTES Subjective Subjective Patient feels some better, ready to go home later today. Objective Objective Vital Signs Date Time Temp Pulse Resp B/P (MAP) Pulse Ox O2 Delivery O2 Flow Rate FiO2 02/23/19 03:25 97.5 85 18 159/64 (95) 99 Nasal Cannula 3.0 97.5 l Intake and Output 02/23/19 06:59 Intake Total 1880 ml Balance 1880 ml Intake Oral 1880 ml # Bowel Movements 3 Physical Exam Abdomen: Normal bowel sounds, Soft, No tenderness Heart: Regular rate Extremities: No edema General: Alert, Oriented X3, No acute distress Lungs: Other (fine crackles bilateral bases otherwise CTA, no wheezes) Plan Plan of Care 1. Acute on chronic respiratory failure with BOOP - feels better, home today on tapering dose of Prednisone per Dr Kirk. Already has O2 at home. 2. ESRD - stable, continue her usual dialysis. 3. DM2 - control improved with increased insulins, patient advised to continue these. 4. HTN - controlled with home meds. 5. chronic pain - stable, continue prn [place]. 6. debility - patient states her daughter does not think she needs home health. Will not order at this time. Patient advised to see how she does at home and contact our office if she finds she is more weak or needs therapies and we can order home health for her at that time. Comment Review of Relevant I have reviewed the following items cosmo (where applicable) has been applied. Labs Laboratory Tests Test 02/21/19 11:53 02/21/19 16:59 02/21/19 20:46 02/22/19 07:41 Glucose (Fingerstick) 166 mg/dL (70-99) 302 mg/dL (70-99) 205 mg/dL (70-99) 264 mg/dL (70-99) Test 02/22/19 11:24 02/22/19 16:29 02/22/19 21:13 Glucose (Fingerstick) 132 mg/dL (70-99) 215 mg/dL (70-99) 166 mg/dL (70-99) Laboratory Tests Test 02/22/19 11:24 02/22/19 16:29 02/22/19 21:13 Glucose (Fingerstick) 132 mg/dL (70-99) 215 mg/dL (70-99) 166 mg/dL (70-99) Microbiology 02/20/19 Blood Culture - Preliminary, Resulted NO GROWTH AFTER 2 DAYS Medications Current Medications Albuterol/ Ipratropium (Duoneb) 3 ml 1X ONCE NEB Last administered on 02/20/19at 19:17; Start 02/20/19 at 18:30; Stop 02/20/19 at 18:34; Status DC Dexamethasone Sodium Phosphate (Decadron) 10 mg 1X ONCE IV ; Start 02/20/19 at 18:30; Stop 02/20/19 at 18:31; Status Cancel Aspirin (Ko Aspirin) 325 mg 1X ONCE PO Last administered on 02/20/19at 19:06; Start 02/20/19 at 18:30; Stop 02/20/19 at 18:34; Status DC Fentanyl Citrate (Fentanyl 2ml Vial) 50 mcg 1X ONCE IV Last administered on 02/20/19at 19:06; Start 02/20/19 at 18:30; Stop 02/20/19 at 18:34; Status DC Dexamethasone Sodium Phosphate (Decadron) 10 mg 1X ONCE IV Last administered on 02/20/19at 19:05; Start 02/20/19 at 19:00; Stop 02/20/19 at 19:01; Status DC Ondansetron HCl (Zofran) 4 mg PRN Q8HRS PRN IV NAUSEA/VOMITING; Start 02/20/19 at 20:00; Stop 02/21/19 at 19:59; Status DC Acetaminophen (Tylenol) 650 mg PRN Q4HRS PRN PO FEVER; Start 02/20/19 at 20:00; Stop 02/21/19 at 09:06; Status DC Albuterol/ Ipratropium (Duoneb) 3 ml RTQID NEB ; Start 02/20/19 at 20:00; Stop 02/21/19 at 08:42; Status DC Insulin Human Lispro (HumaLOG) 0-5 UNITS TIDWMEALS SQ ; Start 02/21/19 at 08:00; Stop 02/21/19 at 09:05; Status DC Dextrose (Dextrose 50%-Water Syringe) 12.5 gm PRN Q15MIN PRN IV SEE COMMENTS; Start 02/20/19 at 20:00; Stop 02/21/19 at 09:05; Status DC Acetaminophen (Tylenol) 650 mg PRN Q6HRS PRN PO MILD PAIN; Start 02/21/19 at 08:45 Amlodipine Besylate (Norvasc) 10 mg DAILY PO Last administered on 02/22/19 08:22; Start 02/21/19 at 09:00 Aspirin (Children'S Aspirin) 81 mg DAILYWBKFT PO Last administered on 02/22/19 08:20; Start 02/21/19 at 09:00 Cetirizine HCl (ZyrTEC) 10 mg DAILY PO Last administered on 02/22/19 08:21; Start 02/21/19 at 09:00 Clonidine HCl (Catapres) 0.1 mg BID PO Last administered on 02/22/19 21:04; Start 02/21/19 at 09:00 Gabapentin (Neurontin) 200 mg BID PO Last administered on 02/22/19 21:04; Start 02/21/19 at 09:00 Acetaminophen/ Hydrocodone Bitart (Lortab 5/325) 1 tab PRN Q6HRS PRN PO MODERATE PAIN Last administered on 02/22/19 08:37; Start 02/21/19 at 08:45 Lactobacillus Rhamnosus (Culturelle) 1 cap BID PO Last administered on 02/22/19 21:04; Start 02/21/19 at 09:00 Sevelamer Carbonate (Renvela) 1,600 mg TIDWMEALS PO Last administered on 02/22/19 18:27; Start 02/21/19 at 13:00 Calcium/Vitamin D (Oscal D 500mg/ 200uts) 1 tab DAILY08 PO Last administered on 02/22/19 08:21; Start 02/21/19 at 09:00 Fluticasone Propionate (Flonase) 2 spray DAILY NS Last administered on 02/22/19 08:22; Start 02/21/19 at 10:00 Hydralazine HCl (Apresoline) 50 mg TID PO Last administered on 02/22/19 08:21; Start 02/21/19 at 10:00 Labetalol HCl (Trandate) 200 mg DAILY PO Last administered on 02/22/19 08:21; Start 02/21/19 at 10:00 Pantoprazole Sodium (Protonix) 40 mg DAILYAC PO Last administered on 5/9/19at 08:20; Start 02/21/19 at 11:30 Vitamin B Complex/ Vitamin C ([place]) 1 tab DAILY PO Last administered on 02/22/19at 08:20; Start 02/21/19 at 10:00 Insulin Human Lispro (HumaLOG) 8 units TIDAC SQ Last administered on 02/22/19at 18:33; Start 02/21/19 at 08:45 Insulin Glargine (Lantus) 8 units QHS SQ Last administered on 02/21/19at 21:02; Start 02/21/19 at 21:00; Stop 02/22/19 at 08:54; Status DC Albuterol Sulfate (Ventolin Neb Soln) 2.5 mg PRN Q4HRS PRN NEB SHORTNESS OF BREATH; Start 02/21/19 at 08:30 Guaifenesin/ Codeine Phosphate (Robitussin Ac) 5 ml PRN Q6HRS PRN PO COUGH; Start 02/21/19 at 09:00 Insulin Human Lispro (HumaLOG) 0-9 UNITS TIDWMEALS SQ Last administered on 02/22/19at 18:34; Start 02/21/19 at 12:00 Dextrose (Dextrose 50%-Water Syringe) 12.5 gm PRN Q15MIN PRN IV SEE COMMENTS; Start 02/21/19 at 09:00 Sodium Chloride 1,000 ml @ 1,000 mls/hr Q1H PRN IV hypotension; Start 02/21/19 at 09:01; Stop 02/21/19 at 15:00; Status DC Sodium Chloride 1,000 ml @ 400 mls/hr Q2H30M PRN IV PATENCY; Start 02/21/19 at 09:01; Stop 02/21/19 at 21:00; Status DC Info (PHARMACY MONITORING -- do not chart) 1 each PRN DAILY PRN MC SEE COMMENTS; Start 02/21/19 at 09:15; Status UNV Info (PHARMACY MONITORING -- do not chart) 1 each PRN DAILY PRN MC SEE COMMENTS; Start 02/21/19 at 09:15 Prednisone (Prednisone) 40 mg DAILY PO Last administered on 02/22/19at 09:47; Start 02/22/19 at 09:00 Insulin Glargine (Lantus) 12 units QHS SQ Last administered on 02/22/19at 21:15; Start 02/22/19 at 21:00 Sodium Chloride 1,000 ml @ 1,000 mls/hr Q1H PRN IV hypotension; Start 02/23/19 at 06:16; Stop 02/23/19 at 12:15 Diphenhydramine HCl (Benadryl) 25 mg 1X PRN PRN IV ITCHING; Start 02/23/19 at 06:30; Stop 02/24/19 at 06:29 Diphenhydramine HCl (Benadryl) 25 mg 1X PRN PRN IV ITCHING; Start 02/23/19 at 06:30; Stop 02/24/19 at 06:29 Sodium Chloride 1,000 ml @ 400 mls/hr Q2H30M PRN IV PATENCY; Start 02/23/19 at 06:16; Stop 02/23/19 at 18:15 Info (PHARMACY MONITORING -- do not chart) 1 each PRN DAILY PRN MC SEE COMMENTS; Start 02/23/19 at 06:30; Stop 02/23/19 at 06:30; Status DC Active Scripts Active Prednisone 20 Mg Tablet 30 Mg PO DAILY 28 Days Novolog (Insulin Aspart) 100 Unit/1 Ml Cartridge 10-40 Unit SQ TIDBFRMEAL 30 Days Lantus (Insulin Glargine,Hum.rec.anlog) 100 Unit/1 Ml Vial 20 Units SQ HS 30 Days Proair Respiclick (Albuterol Sulfate) 90 Mcg Aer.pow.ba 1 Puff IH PRN Q6HRS PRN Culturelle (Lactobacillus Rhamnosus Gg) 1 Each Cap.sprink 1 Cap PO BID 30 Days Combivent Respimat Inhal (Ipratropium/Albuterol Sulfate) 4 Gm Aer.w.adap 2 Inh IH QID 30 Days Labetalol Hcl 200 Mg Tablet 1 Tab PO DAILY 30 Days Children's Aspirin (Aspirin) 81 Mg Tab.chew 81 Mg PO DAILYWBKFT 30 Days Reported Omeprazole 40 Mg Capsule.dr 40 Mg PO DAILY Hydrocodone-Apap 5-325 (Hydrocodone Bit/Acetaminophen) 1 Each Tablet 1 Tab PO Q6HRS PRN Hydralazine Hcl 50 Mg Tablet 1 Tab PO TID Gabapentin (Gabapentin) 100 Mg Capsule 200 Mg PO BID Cetirizine Hcl 10 Mg Tablet 1 Tab PO DAILY Tylenol (Acetaminophen) 325 Mg Tablet 2 Tab PO PRN Q6HRS PRN Clonidine Hcl 0.1 Mg Tablet 0.1 Mg PO BID Alendronate Sodium 70 Mg Tablet 70 Mg PO Q2WKS Flonase Allergy Relief (Fluticasone Propionate) 9.9 Ml [place].susp 2 Sprays NS DAILY Calcium 600 + Vit D 400 Caplet (Calcium Carbonate/Vitamin D3) 1 Each Tablet 1 Each PO DAILY Renvela (Sevelamer Carbonate) 800 Mg Tablet 2 Tab PO [id number] Norvasc (Amlodipine Besylate) 10 Mg Tablet 10 Mg PO DAILY [place]-Abby Rx Tablet (Vit B Cmplx 3/Fa/Vit C/Biotin) 1 Each Tablet 1 Each PO DAILY Vitals/I & O Vital Sign - Last 24 Hours 02/22/19 02/22/19 02/22/19 02/22/19 09:42 10:33 15:45 19:20 Temp 97.6 97.7 97.4 97.6 97.7 97.4 Pulse 72 77 75 Resp 18 18 18 B/P (MAP) 111/48 (69) 101/47 (65) 115/52 (73) Pulse Ox 99 100 95 99 O2 Delivery Nasal Cannula Nasal Cannula Nasal Cannula Nasal Cannula O2 Flow Rate 2.0 2.0 2.0 2.0 02/22/19 02/22/19 02/22/19 02/22/19 19:45 21:00 21:04 23:25 Temp 97.9 97.9 Pulse 75 75 75 Resp 18 B/P (MAP) 115/52 115/52 145/57 (86) Pulse Ox 98 O2 Delivery Nasal Cannula Nasal Cannula O2 Flow Rate 2.0 3.0 02/23/19 03:25 Temp 97.5 97.5 Pulse 85 Resp 18 B/P (MAP) 159/64 (95) Pulse Ox 99 O2 Delivery Nasal Cannula O2 Flow Rate 3.0 Intake and Output 02/22/19 02/22/19 02/23/19 14:59 22:59 06:59 Intake Total 490 ml 740 ml 650 ml Balance 490 ml 740 ml 650 ml ARELI MATIAS MD February 23, 2019 08:42
[2019-02-23] MEDS ORDERED: INSU100V8 SQ (08:47)
[2019-02-23] MEDS: cloNIDine HCL 0.1 MG TABLET PO SCH ×2 (09:00→21:09)
[2019-02-23] MEDS: LABETALOL HCL 200 MG TABLET PO SCH (09:00)
[2019-02-23] MEDS: amLODIPine BESYLATE 10 MG TABLET PO SCH (09:00)
--- NOTE | 2019-02-23 09:43 | PDOC ---
PULMONARY PROGRESS NOTES Subjective NOT SOA Vitals Vital Signs Date Time Temp Pulse Resp B/P (MAP) Pulse Ox O2 Delivery O2 Flow Rate FiO2 02/23/19 03:25 97.5 85 18 159/64 (95) 99 Nasal Cannula 3.0 97.5 ROS: No Nausea, No Chest Pain, No Increase Cough General: Alert, No acute distress Lungs: Crackles Cardiovascular: S1, S2 Abdomen: Soft, Non-tender Extremities: No Edema Labs Laboratory Tests Test 02/21/19 11:53 02/21/19 16:59 02/21/19 20:46 02/22/19 07:41 Glucose (Fingerstick) 166 mg/dL (70-99) 302 mg/dL (70-99) 205 mg/dL (70-99) 264 mg/dL (70-99) Test 02/22/19 11:24 02/22/19 16:29 02/22/19 21:13 Glucose (Fingerstick) 132 mg/dL (70-99) 215 mg/dL (70-99) 166 mg/dL (70-99) Laboratory Tests Test 02/22/19 11:24 02/22/19 16:29 02/22/19 21:13 Glucose (Fingerstick) 132 mg/dL (70-99) 215 mg/dL (70-99) 166 mg/dL (70-99) Medications Active Scripts Medications Dose Route/Sig Max Daily Dose Days Date Category Prednisone 20 Mg Tablet 30 Mg PO DAILY 28 01/12/19 Rx Novolog (Insulin Aspart) 100 Unit/1 Ml Cartridge 10-40 Unit SQ TIDBFRMEAL 30 01/12/19 Rx Lantus (Insulin Glargine,Hum.rec.anlog) 100 Unit/1 Ml Vial 20 Units SQ HS 30 01/12/19 Rx Proair Respiclick (Albuterol Sulfate) 90 Mcg Aer.pow.ba 1 Puff IH PRN Q6HRS PRN 04/10/18 Rx Culturelle (Lactobacillus Rhamnosus Gg) 1 Each Cap.sprink 1 Cap PO BID 30 12/15/17 Rx Combivent Respimat Inhal (Ipratropium/Albuterol Sulfate) 4 Gm Aer.w.adap 2 Inh IH QID 30 09/02/17 Rx Labetalol Hcl 200 Mg Tablet 1 Tab PO DAILY 30 09/02/17 Rx Omeprazole 40 Mg Capsule.dr 40 Mg PO DAILY 09/01/17 Reported Hydrocodone-Apap 5-325 (Hydrocodone Bit/Acetaminophen) 1 Each Tablet 1 Tab PO Q6HRS PRN 09/01/17 Reported Hydralazine Hcl 50 Mg Tablet 1 Tab PO TID 04/08/17 Reported Gabapentin (Gabapentin) 100 Mg Capsule 200 Mg PO BID 04/08/17 Reported Cetirizine Hcl 10 Mg Tablet 1 Tab PO DAILY 10/29/16 Reported Tylenol (Acetaminophen) 325 Mg Tablet 2 Tab PO PRN Q6HRS PRN 10/29/16 Reported Clonidine Hcl 0.1 Mg Tablet 0.1 Mg PO BID 09/17/16 Reported Alendronate Sodium 70 Mg Tablet 70 Mg PO Q2WKS 09/17/16 Reported Flonase Allergy Relief (Fluticasone Propionate) 9.9 Ml [place].susp 2 Sprays NS DAILY 09/17/16 Reported Children's Aspirin (Aspirin) 81 Mg Tab.chew 81 Mg PO DAILYWBKFT 30 11/04/15 Rx Calcium 600 + Vit D 400 Caplet (Calcium Carbonate/Vitamin D3) 1 Each Tablet 1 Each PO DAILY 10/24/15 Reported Renvela (Sevelamer Carbonate) 800 Mg Tablet 2 Tab PO [id number] 12/21/14 Reported Norvasc (Amlodipine Besylate) 10 Mg Tablet 10 Mg PO DAILY 11/11/13 Reported Windy-Abby Rx Tablet (Vit B Cmplx 3/Fa/Vit C/Biotin) 1 Each Tablet 1 Each PO DAILY 11/11/13 Reported Impression . IMPRESSION: 1. 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 2. Abnormal x-ray. X-ray is actually improving since the patient has been on prednisone for the past 4-6 weeks. 4. Acute exacerbation of chronic obstructive pulmonary disease. 5. Acute on chronic respiratory failure. 6. Acute nonspecific bronchitis. Plan . D/C TODAY PT TO CONTINUE TAPER SCHEDULE PRED I PROVIDED HER IN OFFICE FOLLOW UP WITH ME INSTRUCTED TO DO SO PT HAS APPOINTMENT TAMI RAMIREZ MD February 23, 2019 09:43
[2019-02-23] MEDS: FLUTICASONE 50MCG/NASAL SPRAY 16GM BOTTLE. NS SCH (10:57)
[2019-02-23] MEDS: CETIRIZINE HCL 10 MG TABLET. PO SCH (10:58)
[2019-02-23] MEDS: CALCIUM CARB/VIT D3 500/200 TABLET. PO SCH (10:58)
[2019-02-23] MEDS: ASPIRIN CHEWABLE 81 MG TABLET. PO SCH (10:58)
[2019-02-23] MEDS: LACTOBACILLUS RHAMNOSUS GG 1 CAPSULE. PO SCH ×2 (10:58→21:08)
[2019-02-23] MEDS: GABAPENTIN 100 MG CAPSULE. PO SCH ×2 (10:58→21:08)
[2019-02-23] MEDS: FOLIC/VIT B COMP W-C (RENAL) TABLET. PO SCH (10:59)
[2019-02-23] MEDS: predniSONE 20 MG TABLET PO SCH (10:59)
[2019-02-23] MEDS: PANTOPRAZOLE 40 MG TABLET.DR. PO SCH (10:59)
[2019-02-23 11:31] VITALS: BP 144/60
--- NOTE | 2019-02-23 13:02 | PDOC ---
Renal-Progress Notes Subjective Notes Notes FEELING BETTER History of Present Illness Hx of present illness IMPROVED Vitals Vitals Vital Signs Date Time Temp Pulse Resp B/P (MAP) Pulse Ox O2 Delivery O2 Flow Rate FiO2 02/23/19 11:31 97.7 83 16 144/60 (88) 97 Nasal Cannula 3.0 97.7 Weight Weight [ ] I.O. Intake and Output Intake and Output 02/23/19 07:00 Intake Total 1880 ml Balance 1880 ml Intake Oral 1880 ml # Bowel Movements 3 Labs Labs Laboratory Tests Test 02/22/19 16:29 02/22/19 21:13 02/23/19 11:10 Glucose (Fingerstick) 215 mg/dL (70-99) 166 mg/dL (70-99) 123 mg/dL (70-99) Micro Micro Microbiology 02/20/19 Blood Culture - Preliminary, Resulted NO GROWTH AFTER 2 DAYS Review of Systems Constitutional: yes: alert, oriented Ears/Nose/Throat: Yes: no symptom reported Eyes: Yes: no symptom reported Pulmonary: Yes no symptom reported Cardiovascular: Yes no symptom reported Gastrointestional: Yes: no symptom reported Genitourinary: Yes: no symptom reported Skin: Yes no symptom reported Psychiatric/Neurological: Yes: no symptom reported Endocrine: Yes: no symptom reported Physical Exam General Appearance: no apparent distress Skin: warm Respiratory: decreased breath sounds Heart: S1S2 Abdomen: soft, bowel sounds present Genitourinary: bladder flat Extremities: pulses present Neurology: alert Musculoskeletal: Other Assessment Assessment IMP ESRD ANEMIA DYSPNEA BOOP COPD HTN DM II PLAN PULM EVAL AND TX HD TODAY UF TO DW D/C TODAY D/W DAKOTA NEWTON MD February 23, 2019 13:02
[2019-02-23] MEDS: HYDROcodone/APAP 5/325MG 1 TAB TABLET PO PRN (14:20)
[2019-02-23 15:00] VITALS: BP 132/53
--- NOTE | 2019-02-23 15:24 | DS ---
DATE OF DISCHARGE: 02/24/2019 CHIEF COMPLAINT: Cough and shortness of breath. HISTORY OF PRESENT ILLNESS: The patient is a 68-year-old female with a history of chronic respiratory failure and BOOP, who presented to the Emergency Room with the above complaint. She was hospitalized in December for treatment of healthcare-acquired pneumonia and had been discharged home on a tapering prednisone dose per Dr. Kirk. The patient reported that her breathing had been doing fairly well up until 2 days prior to this admission when she began experiencing more shortness of air and a cough productive of discolored sputum. She presented to the Emergency Room. Chest x-ray there did not show an acute infiltrate and was actually improved from the chest x-ray at her previous admission. She was given one dose of steroids and admitted for further care. HOSPITAL COURSE: The patient remained without hypoxia on 2-3 liters of oxygen per nasal cannula. She was seen in consultation by Dr. Kirk and Dr. Velasquez. She was given an increased dose of oral steroids and had good improvement in her symptoms with this. Dr. Kirk felt that her BOOP is improving, and he advised her to resume the slow prednisone taper that he had prescribed for her at home. The patient's chronic medical conditions remained stable. She received dialysis as scheduled. Her blood pressure is controlled with her usual blood pressure medications. The patient has insulin-dependent diabetes. Her blood sugars were mildly elevated due to the steroids, and her insulins were increased a little for better control of this. Her chronic back pain is stable with her usual hydrocodone. She was seen by Physical and Occupational Therapy. The patient does not ambulate and is able to transfer with minimal assistance. She appears a little weak, but close to her baseline in terms of her mobility. Home health was offered, but the patient reports that her daughter did not feel she needed it at this time, and the patient was in agreement with this. The patient was advised that she could always contact our office if it turned out that she did need more therapy at home and this could be arranged through our office. ADDENDUM: The patient was not discharged on 02/23/19 as her fingerstick glucose was over 500. She was given additional insulin and was able to be discharged home on 02/24/19. FINAL DIAGNOSES: 1. Acute on chronic respiratory failure. 2. Bronchiolitis obliterans organizing pneumonia. 3. End-stage renal disease. 4. Diabetes mellitus type 2, insulin-dependent. 5. Hypertension. 6. Chronic pain. DISCHARGE MEDICATIONS: Prednisone 20 mg daily with a taper per Dr. Kirk. Tylenol p.r.n., albuterol p.r.n., alendronate 70 mg every other week, amlodipine 10 mg daily, aspirin 81 mg daily, calcium with vitamin D daily, cetirizine 10 mg daily, clonidine 0.1 mg b.i.d., Flonase daily, gabapentin 200 mg b.i.d., hydralazine 50 mg t.i.d., [place] 5/325 p.r.n., NovoLog insulin 8-10 units t.i.d. a.c., Combivent inhaler 2 puffs q.i.d., labetalol 200 mg daily, omeprazole 40 mg daily, Renvela 800 mg 2 tabs t.i.d. a.c., renal vitamin daily, Lantus insulin 12 units at bedtime. FOLLOWUP: With Dr. Matias as needed. Follow up with Dr. Kirk as scheduled. ARELI MATIAS MD DR: EVONNE/ronaldo JOB#: [id number] / [id number] NISHA
[2019-02-23] MEDS ORDERED: DEXTROSE 50% 25 GM / 50ML DISP.SYRIN. IV PRN (18:30)
[2019-02-23 19:20] VITALS: BP 154/64
--- NOTE | 2019-02-23 20:00 | NUR ---
Patient's blood glucose predinner was 548, paged Dr. Alejandro at [phone] and received call back at 1400. Discussed with him that the patient refused her standing insulin order at lunchtime because her blood glucose was only 123 and she doesn't need it. An order for glucose lab draw was done--652 mg/dl. Result relayed to Dr. Alejandro, order received to give sliding scale, recheck glucose every 2 hours. Discharge to home was likewise cancelled.
[2019-02-23] MEDS: INSULIN GLARGINE 300 UNITS/3 ML INSULN.PEN. SQ SCH (21:11)
[2019-02-23 23:20] VITALS: BP 163/66
[2019-02-24] MEDS: INSULIN LISPRO 300 UNITS/3 ML INSULN.PEN. SQ SCH ×10 (00:25→12:37)
[2019-02-24 03:20] VITALS: BP 168/75
[2019-02-24 07:00] VITALS: BP 168/86
--- NOTE | 2019-02-24 08:45 | NUR ---
Rapid Response note: Called to room 671 for pt that was incoherent and moaning. Blood glucose on finger stick was 16, D50 given per new IV started by floor nurse, repeat glucose was 248 and pt was alert and oriented. Pt told what had happened and she was ready to breakfast. Stat lab glucose had been ordered however it had not been drawn yet. Pt remains on the floor, VSS .
[2019-02-24] MEDS: SEVELAMER CARBONATE 800 MG TABLET. PO SCH ×2 (08:53→12:30)
[2019-02-24] MEDS: amLODIPine BESYLATE 10 MG TABLET PO SCH (08:53)
[2019-02-24] MEDS: CALCIUM CARB/VIT D3 500/200 TABLET. PO SCH (08:53)
[2019-02-24] MEDS: FOLIC/VIT B COMP W-C (RENAL) TABLET. PO SCH (08:53)
[2019-02-24] MEDS: PANTOPRAZOLE 40 MG TABLET.DR. PO SCH (08:54)
[2019-02-24] MEDS: GABAPENTIN 100 MG CAPSULE. PO SCH (08:54)
[2019-02-24] MEDS: predniSONE 20 MG TABLET PO SCH (08:54)
[2019-02-24] MEDS: LABETALOL HCL 200 MG TABLET PO SCH (08:54)
[2019-02-24] MEDS: LACTOBACILLUS RHAMNOSUS GG 1 CAPSULE. PO SCH (08:54)
[2019-02-24] MEDS: ASPIRIN CHEWABLE 81 MG TABLET. PO SCH (08:54)
[2019-02-24] MEDS: CETIRIZINE HCL 10 MG TABLET. PO SCH (08:55)
[2019-02-24] MEDS: cloNIDine HCL 0.1 MG TABLET PO SCH (08:55)
[2019-02-24] MEDS: FLUTICASONE 50MCG/NASAL SPRAY 16GM BOTTLE. NS SCH (08:56)
--- NOTE | 2019-02-24 09:00 | NUR ---
This RN was notified that patient blood sugar was 16. Throughout the night, patient was on Q2 finger sticks with a humalog sliding scale due to a blood sugar >500 at dinner on 02/23/19. Upon entering the patient room, patient was arousal to sternal rub but with constant tremors and moans. Rapid response called, patient had no IV access due to anticipated discharge today, new IV started, 1 amp of dextrose given, VSS throughout rapid response, blood sugar (acc-u-check) redone, measured at 248. Patient then was arousal to name, stating "I'm really hungry." Stat lab draw for glucose ordered. Dr. Saira edmonsd, Dr. cardona electrical & instrumentation supervisor, and notified of this event. Will continue to monitor.
[2019-02-24 11:00] VITALS: BP 95/59
[2019-02-24] MEDS: HYDROcodone/APAP 5/325MG 1 TAB TABLET PO PRN (12:31)
--- NOTE | 2019-02-24 13:14 | PDOC ---
Provider Note Provider Note Pts discharge cancelled yesterday as he blood sugar went up over 500 , she had refused her noon insulin dose as her sugar was 120. She is on prednisone for BOOP though, she ate lunch fine but by dinnertime her sugar was over 500 so she required extra insulin to bring it down. Unfortunately it dropped to 16 overnight so she received IV Dextrose and it has been controled since. She will follow her prednisone taper at home, other dc instructions remain the same Rachana CONNELL MD February 24, 2019 13:14
[2019-02-24 13:58] VITALS: BP 95/59
--- NOTE | 2019-02-24 14:00 | NUR ---
Discharge Note: ROBBIN LYNN [address] [place] [address] Discharge instructions and discharge home medications reviewed with Patient and a copy given. All questions have been answered and understanding verbalized. The following instructions and handouts were given: F/U with Dr. Kirk as scheduled and F/U with Dr. Chávez as needed. Pt received her paz money that was locked up with security and all other belongings that were in the room with patient. Discontinued lines and drains: Peripheral IV intact. Patient discharged to Home or Self Care with Family Member via Wheelchair.
== END 2019-02-24 14:00 | disposition home or self-care (01) | DRG 196 ==
LOC: ER 18:10 → 6 SOUTH 19:55
PROVIDERS: ADMIT Family Medicine; ATTEND Family Medicine
PROC: 5A1D70Z Performance of Urinary Filtration, Intermittent, Less than 6 Hours Per Day (ICD-10-PCS; principal; 2019-02-21)
PROC: 5A1D70Z Performance of Urinary Filtration, Intermittent, Less than 6 Hours Per Day (ICD-10-PCS; 2019-02-23)
DX: J84.89 Other specified interstitial pulmonary diseases (principal); J96.20 Acute and chronic respiratory failure, unspecified whether with hypoxia or hypercapnia; N18.6 End stage renal disease; J44.1 Chronic obstructive pulmonary disease with (acute) exacerbation; I13.2 Hypertensive heart and chronic kidney disease with heart failure and with stage 5 chronic kidney disease, or end stage renal disease; J44.0 Chronic obstructive pulmonary disease with (acute) lower respiratory infection; I50.9 Heart failure, unspecified; D64.9 Anemia, unspecified; E11.22 Type 2 diabetes mellitus with diabetic chronic kidney disease; E11.42 Type 2 diabetes mellitus with diabetic polyneuropathy; G89.29 Other chronic pain; M81.0 Age-related osteoporosis without current pathological fracture; I25.10 Atherosclerotic heart disease of native coronary artery without angina pectoris; M19.90 Unspecified osteoarthritis, unspecified site; T38.0X5A Adverse effect of glucocorticoids and synthetic analogues, initial encounter; E78.5 Hyperlipidemia, unspecified; K21.9 Gastro-esophageal reflux disease without esophagitis; F32.9 Major depressive disorder, single episode, unspecified; J20.9 Acute bronchitis, unspecified; Z87.01 Personal history of pneumonia (recurrent); Z90.710 Acquired absence of both cervix and uterus; Z98.51 Tubal ligation status; Z99.2 Dependence on renal dialysis; Z79.4 Long term (current) use of insulin; Z79.899 Other long term (current) drug therapy; Y92.89 Other specified places as the place of occurrence of the external cause; Z86.73 Personal history of transient ischemic attack (TIA), and cerebral infarction without residual deficits; Z83.3 Family history of diabetes mellitus; Z82.49 Family history of ischemic heart disease and other diseases of the circulatory system; Z82.3 Family history of stroke; Z86.19 Personal history of other infectious and parasitic diseases
CPT/HCPCS: 36415; 71045; 80053; 82553; 82947; 82962; 83605; 83880; 84484; 85025; 87040; 87804; 93005; 94640; 94760; 96372; 96374; 96375; J1100; J1815; J3010; J7512; J7620; 97110; 97530; 99285-25

== ENCOUNTER 2019-04-02 17:00 | Observation (INO) | payer OTHER ==
[~2019-04-02] VITALS: Ht 157.5 cm; Wt 56.3 kg
--- NOTE | 2019-04-02 18:01 | PHYS DOC ---
Past Medical History Past Medical History: Bronchitis, COPD, Diabetes-Type II, Hypertension, Pneumonia, Renal Failure, Other Additional Past Medical Histor: c diff,drop foot syndrome (GEORGE WEAVER APRN) Past Surgical History: Cholecystectomy, , Hysterectomy, Tonsillectomy, Tubal ligation, Other Additional Past Surgical Histo: bilat rotator cuff;dialysis shunt left forearm,L ANKLE ORIF (GEORGE WEAVER APRN) Alcohol Use: None Drug Use: None (GEORGE WEAVER APRN) Adult General Chief Complaint Chief Complaint: DIARRHEA HPI HPI Patient is a 69 year old [female] who presents with [diarrhea x 3 days. Patient reports she has had 3-4 episodes each day, reports last night she was unable to get off the toilet because she had some much diarrhea. States she was diagnosed with pneumonia approximately 3 weeks ago, was put on antibiotics and steroids, states the steroids have helped her cough but she continues to have a cough and some SOA with it. States she has had C Diff in the past. Reports she is a dialysis patient, she had dialysis today, had no issues. She had taken an immodium this morning that seemed to help for a few hours but it came back after her dialysis. Denies recent travel, denies change in medications. ] (GEORGE WEAVER APRN) Review of Systems Review of Systems Constitutional: Denies fever or chills [] Eyes: Denies change in visual acuity, redness, or eye pain [] HENT: Denies nasal congestion or sore throat [] Respiratory: Reports persisting cough, denies increase in shortness of breath [] Cardiovascular: No additional information not addressed in HPI [] GI: Denies abdominal pain, nausea, vomiting, bloody stools. Does complain of se veral episodes of diarrhea [] : Denies dysuria or hematuria [] Musculoskeletal: Denies back pain or joint pain [] Integument: Denies rash or skin lesions [] Neurologic: Denies headache, focal weakness or sensory changes [] Endocrine: Denies polyuria or polydipsia [] All other systems were reviewed and found to be within normal limits, except as documented in this note. (GEORGE WEAVER APRN) Allergies Allergies Allergies Coded Allergies Type Severity Reaction Last Updated Verified No Known Drug Allergies 12/13/17 No (MARQUITA URIBE DO) Physical Exam Physical Exam Constitutional: Well developed, well nourished, no acute distress, non-toxic ap pearance. [] HENT: Normocephalic, atraumatic, bilateral external ears normal, oropharynx moist, no oral exudates, nose normal. [] Eyes: PERRLA, EOMI, conjunctiva normal, no discharge. [] Neck: Normal range of motion, no tenderness, supple, no stridor. [] Cardiovascular:Heart rate regular rhythm, no murmur [] Lungs & Thorax: Bilateral breath sounds clear to auscultation. Occasional dry cough noted.[] Abdomen: Bowel sounds hyperactive, soft, no tenderness, no masses, no pulsatile masses. [] Skin: Warm, dry, no erythema, no rash. [] Back: No tenderness, no CVA tenderness. [] Extremities: No tenderness, no cyanosis, no clubbing, ROM intact, no edema. [] Neurologic: Alert and oriented X 3, normal motor function, normal sensory function, no focal deficits noted. [] Psychologic: Affect normal, judgement normal, mood normal. [] (GEORGE WEAVER APRN) Current Patient Data Vital Signs Vital Signs Date Time Temp Pulse Resp B/P (MAP) Pulse Ox O2 Delivery O2 Flow Rate FiO2 04/02/19 20:25 84 18 150/70 (96) 100 Nasal Cannula 3.0 04/02/19 17:39 98.1 98.1 (MARQUITA URIBE DO) Lab Values Laboratory Tests Test 04/02/19 18:07 White Blood Count 9.7 x10^3/uL (4.0-11.0) Red Blood Count 3.33 x10^6/uL (3.50-5.40) L Hemoglobin 10.6 g/dL (12.0-15.5) L Hematocrit 32.1 % (36.0-47.0) L Mean Corpuscular Volume 97 fL (79-100) Mean Corpuscular Hemoglobin 32 pg (25-35) Mean Corpuscular Hemoglobin Concent 33 g/dL (31-37) Red Cell Distribution Width 17.5 % (11.5-14.5) H Platelet Count 294 x10^3/uL (140-400) Neutrophils (%) (Auto) 87 % (31-73) H Lymphocytes (%) (Auto) 8 % (24-48) L Monocytes (%) (Auto) 4 % (0-9) Eosinophils (%) (Auto) 1 % (0-3) Basophils (%) (Auto) 0 % (0-3) Neutrophils # (Auto) 8.5 x10^3uL (1.8-7.7) H Lymphocytes # (Auto) 0.8 x10^3/uL (1.0-4.8) L Monocytes # (Auto) 0.4 x10^3/uL (0.0-1.1) Eosinophils # (Auto) 0.1 x10^3/uL (0.0-0.7) Basophils # (Auto) 0.0 x10^3/uL (0.0-0.2) Segmented Neutrophils % 86 % (35-66) H Band Neutrophils % 3 % (0-9) Lymphocytes % 6 % (24-48) L Monocytes % 3 % (0-10) Eosinophils % 1 % (0-5) Myelocytes % 1 % (0-0) H Toxic Granulation Slight Toxic Vacuolation Slight Platelet Estimate Adequate (ADEQUATE) Large Platelets Occ Anisocytosis Slight Sodium Level 142 mmol/L (136-145) Potassium Level 3.4 mmol/L (3.5-5.1) L Chloride Level 104 mmol/L (98-107) Carbon Dioxide Level 29 mmol/L (21-32) Anion Gap 9 (6-14) Blood Urea Nitrogen 17 mg/dL (7-20) Creatinine 3.4 mg/dL (0.6-1.0) H Estimated GFR (Cockcroft-Gault) 13.3 Glucose Level 127 mg/dL (70-99) H Calcium Level 8.6 mg/dL (8.5-10.1) Laboratory Tests 04/02/19 18:07 Laboratory Tests 04/02/19 18:07 (MARQUITA URIBE DO) Lab Values Laboratory Tests Test 04/02/19 18:07 White Blood Count 9.7 x10^3/uL (4.0-11.0) Red Blood Count 3.33 x10^6/uL (3.50-5.40) L Hemoglobin 10.6 g/dL (12.0-15.5) L Hematocrit 32.1 % (36.0-47.0) L Mean Corpuscular Volume 97 fL (79-100) Mean Corpuscular Hemoglobin 32 pg (25-35) Mean Corpuscular Hemoglobin Concent 33 g/dL (31-37) Red Cell Distribution Width 17.5 % (11.5-14.5) H Platelet Count 294 x10^3/uL (140-400) Neutrophils (%) (Auto) 87 % (31-73) H Lymphocytes (%) (Auto) 8 % (24-48) L Monocytes (%) (Auto) 4 % (0-9) Eosinophils (%) (Auto) 1 % (0-3) Basophils (%) (Auto) 0 % (0-3) Neutrophils # (Auto) 8.5 x10^3uL (1.8-7.7) H Lymphocytes # (Auto) 0.8 x10^3/uL (1.0-4.8) L Monocytes # (Auto) 0.4 x10^3/uL (0.0-1.1) Eosinophils # (Auto) 0.1 x10^3/uL (0.0-0.7) Basophils # (Auto) 0.0 x10^3/uL (0.0-0.2) Segmented Neutrophils % 86 % (35-66) H Band Neutrophils % 3 % (0-9) Lymphocytes % 6 % (24-48) L Monocytes % 3 % (0-10) Eosinophils % 1 % (0-5) Myelocytes % 1 % (0-0) H Toxic Granulation Slight Toxic Vacuolation Slight Platelet Estimate Adequate (ADEQUATE) Large Platelets Occ Anisocytosis Slight Sodium Level 142 mmol/L (136-145) Potassium Level 3.4 mmol/L (3.5-5.1) L Chloride Level 104 mmol/L (98-107) Carbon Dioxide Level 29 mmol/L (21-32) Anion Gap 9 (6-14) Blood Urea Nitrogen 17 mg/dL (7-20) Creatinine 3.4 mg/dL (0.6-1.0) H Estimated GFR (Cockcroft-Gault) 13.3 Glucose Level 127 mg/dL (70-99) H Calcium Level 8.6 mg/dL (8.5-10.1) Laboratory Tests 04/02/19 18:07 Laboratory Tests 04/02/19 18:07 (GEORGE WEAVER APRN) EKG EKG [] (GEORGE WEAVER APRN) Radiology/Procedures Radiology/Procedures Portable AP view was taken of the chest. Comparison is made to study from February 20. There is chronic interstitial lung disease. The patient's taken a poor inspiration. There are old right rib fractures. Heart is normal in size. There is no effusion. There is mild superimposed linear atelectasis or infiltrate in the left lung base. There is mild atelectasis along the right diaphragm. IMPRESSION: 1. Poor inspiration. 2. Chronic interstitial lung disease. 3. Mild linear atelectasis or infiltrate left lung base. 4. Mild atelectasis along the right diaphragm. Electronically signed by: Kp Patel MD (04/02/2019 6:38 PM) [facility] DICTATED and SIGNED BY: KP PATEL MD DATE: 04/02/191837 [] (GEORGE WEVAER APRN) Course & Med Decision Making Course & Med Decision Making Pertinent Labs and Imaging studies reviewed. (See chart for details) [Discussed with patient, patient reports she is just tired and states she has not had a bowel movement yet. States last diarrhea was approx 1600, 1 hour prior to coming to the Er. states she feels a little weak and does agree getting a stool sample to rule out C Diff would be good. @[address] Banuelos, agrees for observation to obtain stool sample, will treat if needed. Patient labs today are good for patient, without concern over Hgb or Cr today. ] (GEORGE WEAVER APRN) Dragon Disclaimer Dragon Disclaimer This electronic medical record was generated, in whole or in part, using a voice recognition dictation system. (GEORGE WEAVER APRN) Departure Departure Impression: Primary Impression: Diarrhea Additional Impressions: Fatigue History of Clostridium difficile infection Disposition: ADMITTED INPATIENT Admitting Physician: Nicolasa Banuelos (GEORGE WEAVER APRN) Condition: STABLE Referrals: NICOLASA BANUELOS MD (PCP) Scripts Prednisone (PREDNISONE) 20 Mg Tablet 20 MG PO DAILY for pneumonia for 28 Days, #28 TAB Prov: NICOLASA BANUELOS MD 04/03/19 Attending Signature Attending Signature I have reviewed the PA/PHYSIOLOGY TEACHER's note and plan of care. I was available for consult ation as needed during the patient's visit in the emergency department. I agree with the clinical impression, plan, and disposition. (MARQUITA URIBE DO) Problem Qualifiers Primary Impression: Diarrhea Diarrhea type: presumed infectious Qualified Codes: R19.7 - Diarrhea, unspecified Additional Impressions: Fatigue Fatigue type: other Qualified Codes: R53.83 - Other fatigue GEORGE WEAVER APRN Apr 02, 2019 18:01 MARQUITA URIBE DO Apr 04, 2019 20:08
[2019-04-02 18:16] LABS: BASO % 0 % (0-3); EOS # 0.1 x10^3/uL (0.0-0.7); EOS % 1 % (0-3); HEMATOCRIT 32.1 % (36.0-47.0); HEMOGLOBIN 10.6 g/dL (12.0-15.5); LYMPH # 0.8 x10^3/uL (1.0-4.8); LYMPH % 8 % (24-48); MEAN CORPUSCULAR HEMOGLOBIN 32 pg (25-35); MEAN CORPUSCULAR HGB CONC 33 g/dL (31-37); MEAN CORPUSCULAR VOLUME 97 fL (79-100); MONO # 0.4 x10^3/uL (0.0-1.1); MONO % 4 % (0-9); NEUT # 8.5 x10^3uL (1.8-7.7); NEUT % 87 % (31-73); PLATELET COUNT 294 x10^3/uL (140-400); RED BLOOD COUNT 3.33 x10^6/uL (3.50-5.40); RED CELL DISTRIBUTION WIDTH 17.5 % (11.5-14.5); WHITE BLOOD COUNT 9.7 x10^3/uL (4.0-11.0)
[2019-04-02 18:32] LABS: CALCIUM 8.6 mg/dL (8.5-10.1); CREATININE 3.4 mg/dL (0.6-1.0); GFR 13.3; POTASSIUM 3.4 mmol/L (3.5-5.1)
--- NOTE | 2019-04-02 18:41 | RAD ---
AP chest. HISTORY: Cough Portable AP view was taken of the chest. Comparison is made to study from February 20. There is chronic interstitial lung disease. The patient's taken a poor inspiration. There are old right rib fractures. Heart is normal in size. There is no effusion. There is mild superimposed linear atelectasis or infiltrate in the left lung base. There is mild atelectasis along the right diaphragm. IMPRESSION: 1. Poor inspiration. 2. Chronic interstitial lung disease. 3. Mild linear atelectasis or infiltrate left lung base. 4. Mild atelectasis along the right diaphragm. Electronically signed by: Kp Patel MD (04/02/2019 6:38 PM) [facility]
[2019-04-02 18:55] LABS: % BANDS 3 % (0-9); % EOS 1 % (0-5); % LYMPHS 6 % (24-48); % MONOS 3 % (0-10); % MYELOS 1 % (0-0); % SEGS 86 % (35-66)
[2019-04-02 18:56] LABS: ANISOCYTOSIS SLIGHT; PLT ESTIMATE ADEQUATE (ADEQUATE)
[2019-04-02 18:57] LABS: TOXIC GRANULATION SLIGHT; TOXIC VACUOLATION SLIGHT
[2019-04-02] MEDS ORDERED: ONDANSETRON PF 4 MG/2 ML VIAL. IV PRN (21:15)
[2019-04-02 23:00] VITALS: BP 142/57
[2019-04-03 03:00] VITALS: BP 142/61
[2019-04-03 06:56] LABS: BASO % 0 % (0-3); EOS % 0 % (0-3); LYMPH % 15 % (24-48); MEAN CORPUSCULAR HEMOGLOBIN 32 pg (25-35); MEAN CORPUSCULAR HGB CONC 32 g/dL (31-37); MEAN CORPUSCULAR VOLUME 98 fL (79-100); MONO # 0.6 x10^3/uL (0.0-1.1); MONO % 8 % (0-9); NEUT # 5.5 x10^3uL (1.8-7.7); NEUT % 77 % (31-73); PLATELET COUNT 269 x10^3/uL (140-400); RED BLOOD COUNT 3.16 x10^6/uL (3.50-5.40); RED CELL DISTRIBUTION WIDTH 17.7 % (11.5-14.5); WHITE BLOOD COUNT 7.2 x10^3/uL (4.0-11.0)
[2019-04-03 07:00] VITALS: BP 168/63
[2019-04-03 07:04] LABS: CALCIUM 8.7 mg/dL (8.5-10.1); CREATININE 4.3 mg/dL (0.6-1.0)
[2019-04-03 07:05] LABS: GFR 10.2; POTASSIUM 3.7 mmol/L (3.5-5.1)
[2019-04-03] MEDS ORDERED: PRED20TA PO (08:12)
[2019-04-03] MEDS ORDERED: HYDROcodone/APAP 5/325MG 1 TAB TABLET PO PRN (08:15)
[2019-04-03] MEDS ORDERED: ACETAMINOPHEN 325 MG TABLET. PO PRN (08:15)
[2019-04-03] MEDS ORDERED: NON FORMULARY ITEM (Albuterol Sulfate (Proair Respiclick) 1 PUFF) IH PRN (08:15)
--- NOTE | 2019-04-03 08:17 | PDOC ---
PROGRESS NOTES Subjective Subjective Patient reports no diarrhea since admission. Denies abdominal pain. Hungry for breakfast. Objective Objective Vital Signs Date Time Temp Pulse Resp B/P (MAP) Pulse Ox O2 Delivery O2 Flow Rate FiO2 04/03/19 03:00 98.5 87 18 142/61 (88) 97 Nasal Cannula 3.0 98.5 Intake and Output 04/03/19 06:59 Intake Total 240 ml Balance 240 ml Intake Oral 240 ml Physical Exam Abdomen: Normal bowel sounds, Soft, No tenderness Heart: Regular rate Extremities: No edema General: Alert, Oriented X3, No acute distress Lungs: Clear to auscultation Assessment Assessment Problems Medical Problems: (1) Diarrhea Status: Acute (2) Fatigue Status: Acute (3) History of Clostridium difficile infection Status: Acute Plan Plan of Care 1. Diarrhea with history of C diff - no stool since admission, making C diff less likely. Stool for C diff ordered. Should be able to discharge home later today, on Vancomycin if positive for C diff. Patient in agreement, feels able to return home. 2. ESRD - stable, continue dialysis as scheduled. 3. Chronic respiratory failure with BOOP - slowly improving on slow Prednisone taper per Dr Kirk, continue present tx. 4. DM2 - well controlled with diet and small amounts of insulin. 5. HTN - stable, continue home medication. Comment Review of Relevant I have reviewed the following items cosmo (where applicable) has been applied. Labs Laboratory Tests Test 04/02/19 18:07 04/03/19 04:36 White Blood Count 9.7 x10^3/uL (4.0-11.0) 7.2 x10^3/uL (4.0-11.0) Red Blood Count 3.33 x10^6/uL (3.50-5.40) 3.16 x10^6/uL (3.50-5.40) Hemoglobin 10.6 g/dL (12.0-15.5) 10.0 g/dL (12.0-15.5) Hematocrit 32.1 % (36.0-47.0) 31.0 % (36.0-47.0) Mean Corpuscular Volume 97 fL (79-100) 98 fL (79-100) Mean Corpuscular Hemoglobin 32 pg (25-35) 32 pg (25-35) Mean Corpuscular Hemoglobin Concent 33 g/dL (31-37) 32 g/dL (31-37) Red Cell Distribution Width 17.5 % (11.5-14.5) 17.7 % (11.5-14.5) Platelet Count 294 x10^3/uL (140-400) 269 x10^3/uL (140-400) Neutrophils (%) (Auto) 87 % (31-73) 77 % (31-73) Lymphocytes (%) (Auto) 8 % (24-48) 15 % (24-48) Monocytes (%) (Auto) 4 % (0-9) 8 % (0-9) Eosinophils (%) (Auto) 1 % (0-3) 0 % (0-3) Basophils (%) (Auto) 0 % (0-3) 0 % (0-3) Neutrophils # (Auto) 8.5 x10^3uL (1.8-7.7) 5.5 x10^3uL (1.8-7.7) Lymphocytes # (Auto) 0.8 x10^3/uL (1.0-4.8) 1.0 x10^3/uL (1.0-4.8) Monocytes # (Auto) 0.4 x10^3/uL (0.0-1.1) 0.6 x10^3/uL (0.0-1.1) Eosinophils # (Auto) 0.1 x10^3/uL (0.0-0.7) 0.0 x10^3/uL (0.0-0.7) Basophils # (Auto) 0.0 x10^3/uL (0.0-0.2) 0.0 x10^3/uL (0.0-0.2) Segmented Neutrophils % 86 % (35-66) Band Neutrophils % 3 % (0-9) Lymphocytes % 6 % (24-48) Monocytes % 3 % (0-10) Eosinophils % 1 % (0-5) Myelocytes % 1 % (0-0) Toxic Granulation Slight Toxic Vacuolation Slight Platelet Estimate Adequate (ADEQUATE) Large Platelets Occ Anisocytosis Slight Sodium Level 142 mmol/L (136-145) 140 mmol/L (136-145) Potassium Level 3.4 mmol/L (3.5-5.1) 3.7 mmol/L (3.5-5.1) Chloride Level 104 mmol/L (98-107) 104 mmol/L (98-107) Carbon Dioxide Level 29 mmol/L (21-32) 27 mmol/L (21-32) Anion Gap 9 (6-14) 9 (6-14) Blood Urea Nitrogen 17 mg/dL (7-20) 23 mg/dL (7-20) Creatinine 3.4 mg/dL (0.6-1.0) 4.3 mg/dL (0.6-1.0) Estimated GFR (Cockcroft-Gault) 13.3 10.2 Glucose Level 127 mg/dL (70-99) 334 mg/dL (70-99) Calcium Level 8.6 mg/dL (8.5-10.1) 8.7 mg/dL (8.5-10.1) Laboratory Tests Test 04/02/19 18:07 04/03/19 04:36 White Blood Count 9.7 x10^3/uL (4.0-11.0) 7.2 x10^3/uL (4.0-11.0) Red Blood Count 3.33 x10^6/uL (3.50-5.40) 3.16 x10^6/uL (3.50-5.40) Hemoglobin 10.6 g/dL (12.0-15.5) 10.0 g/dL (12.0-15.5) Hematocrit 32.1 % (36.0-47.0) 31.0 % (36.0-47.0) Mean Corpuscular Volume 97 fL (79-100) 98 fL (79-100) Mean Corpuscular Hemoglobin 32 pg (25-35) 32 pg (25-35) Mean Corpuscular Hemoglobin Concent 33 g/dL (31-37) 32 g/dL (31-37) Red Cell Distribution Width 17.5 % (11.5-14.5) 17.7 % (11.5-14.5) Platelet Count 294 x10^3/uL (140-400) 269 x10^3/uL (140-400) Neutrophils (%) (Auto) 87 % (31-73) 77 % (31-73) Lymphocytes (%) (Auto) 8 % (24-48) 15 % (24-48) Monocytes (%) (Auto) 4 % (0-9) 8 % (0-9) Eosinophils (%) (Auto) 1 % (0-3) 0 % (0-3) Basophils (%) (Auto) 0 % (0-3) 0 % (0-3) Neutrophils # (Auto) 8.5 x10^3uL (1.8-7.7) 5.5 x10^3uL (1.8-7.7) Lymphocytes # (Auto) 0.8 x10^3/uL (1.0-4.8) 1.0 x10^3/uL (1.0-4.8) Monocytes # (Auto) 0.4 x10^3/uL (0.0-1.1) 0.6 x10^3/uL (0.0-1.1) Eosinophils # (Auto) 0.1 x10^3/uL (0.0-0.7) 0.0 x10^3/uL (0.0-0.7) Basophils # (Auto) 0.0 x10^3/uL (0.0-0.2) 0.0 x10^3/uL (0.0-0.2) Segmented Neutrophils % 86 % (35-66) Band Neutrophils % 3 % (0-9) Lymphocytes % 6 % (24-48) Monocytes % 3 % (0-10) Eosinophils % 1 % (0-5) Myelocytes % 1 % (0-0) Toxic Granulation Slight Toxic Vacuolation Slight Platelet Estimate Adequate (ADEQUATE) Large Platelets Occ Anisocytosis Slight Sodium Level 142 mmol/L (136-145) 140 mmol/L (136-145) Potassium Level 3.4 mmol/L (3.5-5.1) 3.7 mmol/L (3.5-5.1) Chloride Level 104 mmol/L (98-107) 104 mmol/L (98-107) Carbon Dioxide Level 29 mmol/L (21-32) 27 mmol/L (21-32) Anion Gap 9 (6-14) 9 (6-14) Blood Urea Nitrogen 17 mg/dL (7-20) 23 mg/dL (7-20) Creatinine 3.4 mg/dL (0.6-1.0) 4.3 mg/dL (0.6-1.0) Estimated GFR (Cockcroft-Gault) 13.3 10.2 Glucose Level 127 mg/dL (70-99) 334 mg/dL (70-99) Calcium Level 8.6 mg/dL (8.5-10.1) 8.7 mg/dL (8.5-10.1) Medications Current Medications Ondansetron HCl (Zofran) 4 mg PRN Q8HRS PRN IV NAUSEA/VOMITING; Start 04/02/19 at 21:15; Stop 04/03/19 at 21:14 Active Scripts Active Prednisone 20 Mg Tablet 20 Mg PO DAILY 28 Days Lantus (Insulin Glargine,Hum.rec.anlog) 100 Unit/1 Ml Vial 12 Units SQ HS 30 Days Novolog (Insulin Aspart) 100 Unit/1 Ml Cartridge 10-40 Unit SQ TIDBFRMEAL 30 Days Proair Respiclick (Albuterol Sulfate) 90 Mcg Aer.pow.ba 1 Puff IH PRN Q6HRS PRN Culturelle (Lactobacillus Rhamnosus Gg) 1 Each Cap.sprink 1 Cap PO BID 30 Days Combivent Respimat Inhal (Ipratropium/Albuterol Sulfate) 4 Gm Aer.w.adap 2 Inh IH QID 30 Days Labetalol Hcl 200 Mg Tablet 1 Tab PO DAILY 30 Days Children's Aspirin (Aspirin) 81 Mg Tab.chew 81 Mg PO DAILYWBKFT 30 Days Reported Omeprazole 40 Mg Capsule.dr 40 Mg PO DAILY Hydrocodone-Apap 5-325 (Hydrocodone Bit/Acetaminophen) 1 Each Tablet 1 Tab PO Q6HRS PRN Hydralazine Hcl 50 Mg Tablet 1 Tab PO TID Gabapentin (Gabapentin) 100 Mg Capsule 200 Mg PO BID Cetirizine Hcl 10 Mg Tablet 1 Tab PO DAILY Tylenol (Acetaminophen) 325 Mg Tablet 2 Tab PO PRN Q6HRS PRN Clonidine Hcl 0.1 Mg Tablet 0.1 Mg PO BID Alendronate Sodium 70 Mg Tablet 70 Mg PO Q2WKS Flonase Allergy Relief (Fluticasone Propionate) 9.9 Ml [place].susp 2 Sprays NS DAILY Calcium 600 + Vit D 400 Caplet (Calcium Carbonate/Vitamin D3) 1 Each Tablet 1 Each PO DAILY Renvela (Sevelamer Carbonate) 800 Mg Tablet 2 Tab PO [id number] Norvasc (Amlodipine Besylate) 10 Mg Tablet 10 Mg PO DAILY Iwndy-Abby Rx Tablet (Vit B Cmplx 3/Fa/Vit C/Biotin) 1 Each Tablet 1 Each PO DAILY Vitals/I & O Vital Sign - Last 24 Hours 04/02/19 04/02/19 04/02/19 04/02/19 17:39 17:55 18:25 18:55 Temp 98.1 98.1 Pulse 78 76 76 76 Resp 18 B/P (MAP) 141/65 (90) 161/72 (101) 151/70 (97) 152/69 (96) Pulse Ox 99 100 100 100 O2 Delivery Nasal Cannula Nasal Cannula Nasal Cannula Nasal Cannula O2 Flow Rate 3.0 3.0 3.0 3.0 04/02/19 04/02/19 04/02/19 04/02/19 19:25 19:55 20:25 20:55 Pulse 76 78 84 84 Resp 18 18 B/P (MAP) 134/62 (86) 143/66 (91) 150/70 (96) 145/65 (91) Pulse Ox 100 100 100 100 O2 Delivery Nasal Cannula Nasal Cannula Nasal Cannula Nasal Cannula O2 Flow Rate 3.0 3.0 3.0 3.0 04/02/19 04/02/19 04/02/19 04/03/19 21:25 22:36 23:00 03:00 Temp 98.1 98.5 98.1 98.5 Pulse 84 85 87 Resp 18 18 18 B/P (MAP) 146/66 (92) 142/57 (85) 142/61 (88) Pulse Ox 100 97 97 O2 Delivery Nasal Cannula Nasal Cannula Nasal Cannula Nasal Cannula O2 Flow Rate 3.0 3.0 2.0 3.0 Intake and Output 04/02/19 04/02/19 04/03/19 14:59 22:59 06:59 Intake Total 240 ml Balance 240 ml ARELI MATIAS MD Apr 03, 2019 08:17
[2019-04-03] MEDS ORDERED: CALCIUM CARB/VIT D3 500/200 TABLET. PO SCH (08:30)
[2019-04-03] MEDS ORDERED: SEVELAMER CARBONATE 800 MG TABLET. PO SCH (08:30)
[2019-04-03] MEDS ORDERED: ASPIRIN CHEWABLE 81 MG TABLET. PO SCH (08:30)
[2019-04-03] MEDS ORDERED: ALBUTEROL SULFATE 2.5 MG/3 ML NEBU. NEB PRN (08:45)
[2019-04-03] MEDS ORDERED: CETIRIZINE HCL 10 MG TABLET. PO SCH (09:00)
[2019-04-03] MEDS ORDERED: LACTOBACILLUS RHAMNOSUS GG 1 CAPSULE. PO SCH (09:00)
[2019-04-03] MEDS ORDERED: FOLIC/VIT B COMP W-C (RENAL) TABLET. PO SCH (09:00)
[2019-04-03] MEDS ORDERED: amLODIPine BESYLATE 10 MG TABLET PO SCH (09:00)
[2019-04-03] MEDS ORDERED: cloNIDine HCL 0.1 MG TABLET PO SCH (09:00)
[2019-04-03] MEDS ORDERED: NON FORMULARY ITEM (Ipratropium/Albuterol Sulfate (Combivent Respimat Inhal) 2 INH) IH SCH (09:00)
[2019-04-03] MEDS ORDERED: GABAPENTIN 100 MG CAPSULE. PO SCH (09:00)
[2019-04-03] MEDS ORDERED: predniSONE 20 MG TABLET PO SCH (09:00)
[2019-04-03] MEDS ORDERED: FLUTICASONE 50MCG/NASAL SPRAY 16GM BOTTLE. NS SCH (09:00)
[2019-04-03] MEDS ORDERED: NON FORMULARY ITEM (Alendronate Sodium 70 MG) PO SCH (09:00)
[2019-04-03] MEDS ORDERED: LABETALOL HCL 200 MG TABLET PO SCH (09:00)
[2019-04-03] MEDS ORDERED: IPRATRPIUM/ALBUTEROL 0.5/2.5MG 3 ML NEBU. NEB SCH (09:00)
[2019-04-03 11:00] VITALS: BP 167/61
[2019-04-03] MEDS ORDERED: PANTOPRAZOLE 40 MG TABLET.DR. PO SCH (11:30)
[2019-04-03] MEDS ORDERED: INSULIN GLARGINE 300 UNITS/3 ML INSULN.PEN. SQ SCH (21:00)
[2019-04-04] MEDS ORDERED: FLUTICASONE 50MCG/NASAL SPRAY 16GM BOTTLE. NS SCH (09:00)
--- NOTE | 2019-04-04 09:04 | SSS ---
ADMIT DATE: 23-HOUR SUMMARY. DATE OF DISCHARGE: 04/03/2019. CHIEF COMPLAINT: Diarrhea. HISTORY OF PRESENT ILLNESS: The patient is a 69-year-old female who presented to the Emergency Room with the above complaint. She reported a several-day history of diarrhea. She had 3-4 stools per day. The patient has a history of Clostridium difficile colitis, and she was concerned that this diarrhea was a recurrence of this. Evaluation in the Emergency Room showed the patient to have stable labs and vital signs. She did not have a stool while in the Emergency Department, so she was admitted for further care. PAST MEDICAL HISTORY: C. difficile colitis several years ago. End-stage renal disease, on dialysis. Recent healthcare-associated pneumonia with BOOP. Diabetes mellitus type 2, insulin-dependent. Hypertension, chronic back pain, osteoporosis, osteoarthritis, mild coronary artery disease, allergic rhinitis. PAST SURGICAL HISTORY: , tonsillectomy, bilateral tubal ligation, bilateral rotator cuff repair, closed reduction and internal fixation of left ankle after fracture in 10/01, cholecystectomy, hysterectomy. ALLERGIES: The patient has no known drug allergies. HOME MEDICATIONS: Albuterol p.r.n., alendronate 70 mg every other week, amlodipine 10 mg daily, aspirin 81 mg daily, calcium with vitamin D daily, Zyrtec 10 mg daily, clonidine 0.1 mg b.i.d., Flonase nasal spray, gabapentin 200 mg b.i.d., hydralazine 50 mg t.i.d., [place] 5/325 p.r.n., NovoLog insulin 4-6 units before meals, Lantus insulin 8 units at bedtime, Combivent inhaler, labetalol 200 mg daily, omeprazole 40 mg daily. Prednisone taper, presently 20 mg daily, Renvela 800 mg 2 tablets t.i.d. a.c. Renal vitamin daily. FAMILY HISTORY: Noncontributory. SOCIAL HISTORY: The patient is single. She lives at home with her daughter. She has never smoked cigarettes and does not drink alcohol to excess. REVIEW OF SYSTEMS: The patient denies fever or chills. She denies chest pain or palpitations. Her cough has continued to slowly improve on the prednisone taper, and she has followed up with Dr. Kirk on this. She denies abdominal pain, nausea or vomiting. She has not missed any dialysis treatments. PHYSICAL EXAMINATION: GENERAL: The patient is alert and oriented x 3, sitting up comfortably in bed in no acute distress. HEENT: PERRL, EOMI, sclerae clear. Oropharynx: Mucous membranes moist. NECK: Supple, without lymphadenopathy. CHEST: Breath sounds mildly decreased throughout, but otherwise clear to auscultation. No wheezes or crackles heard. CARDIOVASCULAR: Regular rhythm. ABDOMEN: Soft, nontender, normoactive bowel sounds are present. EXTREMITIES: Without edema. HOSPITAL COURSE: The patient had no bowel movements during her hospital stay. It appeared that her diarrhea had resolved and therefore testing for C. difficile was not indicated. The patient had a good appetite for her meals and stated that she felt better. She was discharged to home on the afternoon of 04/03/2019. She is aware that she should contact our office immediately for stool testing if her diarrhea reoccurs. FINAL DIAGNOSES: 1. Gastroenteritis, resolved. 2. End-stage renal disease. 3. Chronic respiratory failure with BOOP. 4. Diabetes mellitus type 2. 5. Hypertension. DISCHARGE MEDICATIONS: Remain the same as at admission. FOLLOWUP: With Dr. Matias as needed. ARELI MATIAS MD DR: EVONNE/ronaldo JOB#: [id number] / [id number] NISHA
== END 2019-04-03 12:45 | disposition home or self-care (01) ==
LOC: ER 17:00 → 4 NORTH 20:40
PROVIDERS: ADMIT Family Medicine; ATTEND Family Medicine
DX: K52.9 Noninfective gastroenteritis and colitis, unspecified (principal); R19.7 Diarrhea, unspecified; R05 Cough; J44.9 Chronic obstructive pulmonary disease, unspecified; J84.89 Other specified interstitial pulmonary diseases; J98.11 Atelectasis; R53.83 Other fatigue; A04.72 Enterocolitis due to Clostridium difficile, not specified as recurrent; M54.9 Dorsalgia, unspecified; G89.29 Other chronic pain; I25.10 Atherosclerotic heart disease of native coronary artery without angina pectoris; J30.9 Allergic rhinitis, unspecified; J40 Bronchitis, not specified as acute or chronic; E11.22 Type 2 diabetes mellitus with diabetic chronic kidney disease; I12.0 Hypertensive chronic kidney disease with stage 5 chronic kidney disease or end stage renal disease; N18.6 End stage renal disease; M81.0 Age-related osteoporosis without current pathological fracture; J96.10 Chronic respiratory failure, unspecified whether with hypoxia or hypercapnia; Z87.01 Personal history of pneumonia (recurrent); Z90.710 Acquired absence of both cervix and uterus; Z79.4 Long term (current) use of insulin; Z86.19 Personal history of other infectious and parasitic diseases; Z99.2 Dependence on renal dialysis; Z98.890 Other specified postprocedural states
CPT/HCPCS: 36415; 71045; 80048; 85007; 85025; 94640; 99284; G0378; J7512; J7620; G0379; J1815

== ENCOUNTER 2019-09-01 10:13 | Emergency (ER) | payer OTHER, MEDICAID ==
[~2019-09-01] VITALS: Ht 157.5 cm; Wt 56.2 kg
[~2019-09-01 10:13] MED LIST changes: -CLON1PAT2 TD; +CLON1PAT6 TD; +OMEP40CA45 PO; -OMEP40CA5 PO
[2019-09-01] MEDS ORDERED: ONDANSETRON PF 4 MG/2 ML VIAL. IV ONE (10:45)
[2019-09-01 11:03] LABS: BASO # 0.1 x10^3/uL (0.0-0.2); BASO % 1 % (0-3); EOS # 0.2 x10^3/uL (0.0-0.7); EOS % 2 % (0-3); HEMATOCRIT 35.5 % (36.0-47.0); HEMOGLOBIN 11.7 g/dL (12.0-15.5); LYMPH # 0.8 x10^3/uL (1.0-4.8); LYMPH % 6 % (24-48); MEAN CORPUSCULAR HEMOGLOBIN 31 pg (25-35); MEAN CORPUSCULAR HGB CONC 33 g/dL (31-37); MEAN CORPUSCULAR VOLUME 95 fL (79-100); MONO # 0.8 x10^3/uL (0.0-1.1); MONO % 7 % (0-9); NEUT % 85 % (31-73); PLATELET COUNT 187 x10^3/uL (140-400); RED BLOOD COUNT 3.75 x10^6/uL (3.50-5.40); WHITE BLOOD COUNT 11.9 x10^3/uL (4.0-11.0)
[2019-09-01 11:07] LABS: CALCIUM 8.6 mg/dL (8.5-10.1); CREATININE 5.5 mg/dL (0.6-1.0); GFR 7.6; POTASSIUM 4.3 mmol/L (3.5-5.1)
[2019-09-01 11:13] LABS: ALBUMIN 2.8 g/dL (3.4-5.0); ALBUMIN/GLOBULIN RATIO 0.6 (1.0-1.7); TOTAL BILIRUBIN 0.5 mg/dL (0.2-1.0); TOTAL PROTEIN 7.4 g/dL (6.4-8.2)
--- NOTE | 2019-09-01 12:04 | PHYS DOC ---
Past Medical History Past Medical History: Bronchitis, COPD, Diabetes-Type II, Hypertension, Pneumonia, Renal Failure, Other Additional Past Medical Histor: c diff,drop foot syndrome, neuropathy Past Surgical History: Cholecystectomy, , Hysterectomy, Tonsillectomy, Tubal ligation, Other Additional Past Surgical Histo: bilat rotator cuff;dialysis shunt left forearm,L ANKLE ORIF Alcohol Use: None Drug Use: None Adult General Chief Complaint Chief Complaint: SHORTNESS OF BREATH HPI HPI Patient is a 69 year old female with history of hypertension, diabetes type 2, interstitial disease on dialysis, COPD on 3 L of home oxygen who presents with complaint of shortness of breath. Patient is complaining of shortness of breath for the 3 days that getting worse with supine position with a few dry coughs without fever and chills. Patient also complaining of nausea and few episodes of vomiting for the last several days and one or 2 episodes of on her stools a day. Patient denies chest pain, abdominal pain, sick contact, and generalized weakness. Patient does not make any urine and had her last scheduled dialysis yesterday. Review of Systems Review of Systems Constitutional: Denies fever or chills [] Eyes: Denies change in visual acuity, redness, or eye pain [] HENT: Denies nasal congestion or sore throat [] Respiratory: Reports cough and shortness of breath Cardiovascular: No additional information not addressed in HPI [] GI: Denies abdominal princess, bloody stools or diarrhea, reports nausea and vomiting [] : Denies dysuria or hematuria [] Musculoskeletal: Denies back pain or joint pain [] Integument: Denies rash or skin lesions [] Neurologic: Denies headache, focal weakness or sensory changes [] Endocrine: Denies polyuria or polydipsia [] All other systems were reviewed and found to be within normal limits, except as documented in this note. Current Medications Current Medications Current Medications Medications (Trade) Dose Ordered Sig/Bill Start Time Stop Time Status Last Admin Dose Admin Ceftriaxone Sodium (Rocephin) 1 gm 1X ONCE 09/01/19 13:00 09/01/19 13:01 DC 09/01/19 13:05 1 GM Ondansetron HCl (Zofran) 4 mg 1X ONCE 09/01/19 10:45 09/01/19 10:50 DC 09/01/19 11:02 4 MG Allergies Allergies Allergies Coded Allergies Type Severity Reaction Last Updated Verified No Known Drug Allergies 12/13/17 No Physical Exam Physical Exam Constitutional: Well developed, mild distress, non-toxic appearance. [] HENT: Normocephalic, atraumatic, bilateral external ears normal, oropharynx moist, no oral exudates, nose normal. [] Eyes: PERRLA, EOMI, conjunctiva normal, no discharge. [] Neck: Normal range of motion, no tenderness, supple, no stridor. [] Cardiovascular:Heart rate regular rhythm, no murmur [] Lungs & Thorax: No respiratory distress, decrease of bilateral air movement, no wheezing and rhonchi and rales.] Abdomen: Bowel sounds normal, soft, no tenderness, no masses, no pulsatile masses. [] Skin: Warm, dry, no erythema, no rash. [] Back: No tenderness, no CVA tenderness. [] Extremities: No tenderness, no cyanosis, no clubbing, ROM intact, no edema. [] Neurologic: Alert and oriented X 3, normal motor function, normal sensory function, no focal deficits noted. [] Psychologic: Affect normal, judgement normal, mood normal. [] Current Patient Data Vital Signs Vital Signs Date Time Temp Pulse Resp B/P (MAP) Pulse Ox O2 Delivery O2 Flow Rate FiO2 09/01/19 12:32 80 15 160/63 (95) 93 Nasal Cannula 3.0 09/01/19 10:15 99.1 99.1 Lab Values Laboratory Tests Test 09/01/19 10:35 White Blood Count 11.9 x10^3/uL (4.0-11.0) H Red Blood Count 3.75 x10^6/uL (3.50-5.40) Hemoglobin 11.7 g/dL (12.0-15.5) L Hematocrit 35.5 % (36.0-47.0) L Mean Corpuscular Volume 95 fL (79-100) Mean Corpuscular Hemoglobin 31 pg (25-35) Mean Corpuscular Hemoglobin Concent 33 g/dL (31-37) Red Cell Distribution Width 15.0 % (11.5-14.5) H Platelet Count 187 x10^3/uL (140-400) Neutrophils (%) (Auto) 85 % (31-73) H Lymphocytes (%) (Auto) 6 % (24-48) L Monocytes (%) (Auto) 7 % (0-9) Eosinophils (%) (Auto) 2 % (0-3) Basophils (%) (Auto) 1 % (0-3) Neutrophils # (Auto) 10.0 x10^3/uL (1.8-7.7) H Lymphocytes # (Auto) 0.8 x10^3/uL (1.0-4.8) L Monocytes # (Auto) 0.8 x10^3/uL (0.0-1.1) Eosinophils # (Auto) 0.2 x10^3/uL (0.0-0.7) Basophils # (Auto) 0.1 x10^3/uL (0.0-0.2) Prothrombin Time 14.0 SEC (11.7-14.0) Prothrombin Time INR 1.1 (0.8-1.1) Sodium Level 144 mmol/L (136-145) Potassium Level 4.3 mmol/L (3.5-5.1) Chloride Level 103 mmol/L (98-107) Carbon Dioxide Level 28 mmol/L (21-32) Anion Gap 13 (6-14) Blood Urea Nitrogen 44 mg/dL (7-20) H Creatinine 5.5 mg/dL (0.6-1.0) H Estimated GFR (Cockcroft-Gault) 7.6 BUN/Creatinine Ratio 8 (6-20) Glucose Level 119 mg/dL (70-99) H Lactic Acid Level 1.3 mmol/L (0.4-2.0) Calcium Level 8.6 mg/dL (8.5-10.1) Total Bilirubin 0.5 mg/dL (0.2-1.0) Aspartate Amino Transferase (AST) 41 U/L (15-37) H Alanine Aminotransferase (ALT) 18 U/L (14-59) Alkaline Phosphatase 525 U/L (46-116) H Creatine Kinase 57 U/L (26-192) Troponin I Quantitative < 0.017 ng/mL (0.000-0.055) UW-Gfx-O-Type Natriuretic Peptide 90856 pg/mL (0-124) H Total Protein 7.4 g/dL (6.4-8.2) Albumin 2.8 g/dL (3.4-5.0) L Albumin/Globulin Ratio 0.6 (1.0-1.7) L Lipase 43 U/L (73-393) L Laboratory Tests 09/01/19 10:35 Laboratory Tests 09/01/19 10:35 EKG EKG EKG interpreted by me. EKG at 1057 showed normal sinus rhythm at rate of 84, normal NE and QT intervals, no acute ST and T-wave elevation. Radiology/Procedures Radiology/Procedures [][facility] [address] [place] [address] IMAGING REPORT Signed PATIENT: ROBBIN LYNN ACCOUNT: [id number] : 1950 LOCATION: ER AGE: 69 SEX: F EXAM STATUS: REG ER ORD. PHYSICIAN: LENKA BIANCHI MD REASON: shortness of breath, fever, productive cough PROCEDURE: PORTABLE CHEST 1V Exam performed: One view chest HISTORY: Shortness of breath, productive cough and fever. DATE OF SERVICE: 09/01/2019. COMPARISON: Single view chest from 04/02/2019. Single AP upright portable view chest findings: Heart size is stable. Pulmonary vascularity is unremarkable. Low lung volumes secondary to poor inspiratory effort. There is a linear opacity in the right lung base likely atelectasis. Chronic atelectasis or scarring seen in the left lung base. Ongoing interstitial opacities seen in both lungs likely chronic. Old right rib fracture redemonstrated. IMPRESSION: No acute cardiopulmonary process seen. Chronic changes. Electronically signed by: Melanie White MD (09/01/2019 12:26 PM) [facility] DICTATED and SIGNED BY: MELANIE WHITE MD DATE: 09/01/19 9213 Course & Med Decision Making Course & Med Decision Making Pertinent Labs and Imaging studies reviewed. (See chart for details) Evaluation of patient ER showed 69-year-old female patient with history of chronic renal failure on dialysis and COPD on 3 L of home oxygen with complaining of shortness of breath and nausea and vomiting and questionable diarrhea. Patient had stable vital signs including O2 sat on oxygen. Chest x-ray did not show new finding and white count and lactic acid was within normal limits. Potassium was 4.5 patient had presented with nebulizer treatments in ER. Patient did not have episodes of vomiting while she was in ER and tolerated oral intake. Plan discharge patient home to diagnose of COPD exacerbation after she received a dose of Rocephin in ER. I've spoken with the patient and/or caregivers. I've explained the patient's condition, diagnosis and treatment plan based on information available to me at this time. I've answered the patient's and/or caregivers questions and addressed any concerns. The patient and/or caregivers have a good understanding the patient's diagnosis, condition and treatment plan as can be expected at this point. Vital signs have been stabilized. The patient's condition is stable for discharge from the emergency department. The patient will pursue further outpatient evaluation with her primary care provider or other designated consulting physician as outlined in the discharge instructions. Patient and/or caregivers are agreeable to this plan of care and follow-up instructions have been explained in detail. The patient and/or caregivers have received these instructions in written format and expressed understanding of these discharge instructions. The patient and her caregivers are aware that if any significant change in condition or worsening of symptoms should prompt him to immediately return to this of the closest emergency department. If an emergent department is not readily available I would encourage him to call 911. Dragon Disclaimer Dragon Disclaimer This electronic medical record was generated, in whole or in part, using a voice recognition dictation system. Departure Departure Impression: Primary Impression: COPD exacerbation Additional Impressions: Nausea ESRD on dialysis Disposition: HOME, SELF-CARE (at 1300) Condition: IMPROVED Referrals: ARELI MATIAS MD (PCP) Patient Instructions: Chronic Obstructive Pulmonary Disease Exacerbation, Kidney Failure, Nausea, Adult Additional Instructions: Continue home medication Follow-up with your primary care physician in 2-3 days Return to ER if not getting better Scripts Azithromycin (ZITHROMAX) 250 Mg Tablet 250 MG PO DAILY for ANTI-BIOTIC, #6 TAB 0 Refills Take 2 pills by mouth for the first day and then Take 1 pill by mouth every 24 hours for the next 4 days Prov: LENKA BIANCHI MD 09/01/19 Ondansetron Hcl (ZOFRAN) 4 Mg Tablet 1 TAB PO PRN Q6-8HRS for nausea, #12 TAB Prov: LENKA BIANCHI MD 09/01/19 Benzonatate (TESSALON PERLE) 100 Mg Capsule 1 CAP PO TID for cough, #21 CAP Prov: LENKA BIANCHI MD 09/01/19 Problem Qualifiers LENKA BIANCHI MD Sep 01, 2019 12:04
--- NOTE | 2019-09-01 12:29 | RAD ---
Exam performed: One view chest HISTORY: Shortness of breath, productive cough and fever. DATE OF SERVICE: 09/01/2019. COMPARISON: Single view chest from 04/02/2019. Single AP upright portable view chest findings: Heart size is stable. Pulmonary vascularity is unremarkable. Low lung volumes secondary to poor inspiratory effort. There is a linear opacity in the right lung base likely atelectasis. Chronic atelectasis or scarring seen in the left lung base. Ongoing interstitial opacities seen in both lungs likely chronic. Old right rib fracture redemonstrated. IMPRESSION: No acute cardiopulmonary process seen. Chronic changes. Electronically signed by: Melanie White MD (09/01/2019 12:26 PM) [facility]
[2019-09-01 12:32] VITALS: BP 160/63
[2019-09-01] MEDS ORDERED: cefTRIAXone IV Push 1 GM VIAL. IVP ONE (13:00)
[2019-09-01] MEDS ORDERED: AZIT250T PO (13:02)
[2019-09-01] MEDS ORDERED: BENZ100C PO (13:02)
[2019-09-01] MEDS ORDERED: ONDA4TAB7 PO (13:02)
--- NOTE | 2019-09-03 07:00 | EKG ---
[facility] [address] [place] [address] Test Date: 2019-09-01 Test Time: 10:57:45 Pat Name: ROBBIN LYNN Department: Room: Gender: F Qa Developer: : 1950 Requested By: LENKA BIANCHI Order Number: [id number] Reading MD: Measurements Intervals [place] Rate: 84 P: 47 GA: 150 QRS: 22 QRSD: 84 T: 36 QT: 368 QTc: 438 Interpretive Statements SINUS RHYTHM NO SPECIFIC ECG ABNORMALITIES RI6.01 No previous ECG available for comparison
== END 2019-09-01 13:16 | disposition home or self-care (01) ==
LOC: ER 10:13
DX: J44.1 Chronic obstructive pulmonary disease with (acute) exacerbation (principal); R11.2 Nausea with vomiting, unspecified; I12.0 Hypertensive chronic kidney disease with stage 5 chronic kidney disease or end stage renal disease; E11.22 Type 2 diabetes mellitus with diabetic chronic kidney disease; N18.6 End stage renal disease; Z99.2 Dependence on renal dialysis; E11.40 Type 2 diabetes mellitus with diabetic neuropathy, unspecified; Z90.49 Acquired absence of other specified parts of digestive tract; Z98.51 Tubal ligation status; Z90.710 Acquired absence of both cervix and uterus
CPT/HCPCS: 36415; 71045; 80053; 82550; 83605; 83690; 83880; 84484; 85025; 85610; 93005; 96374; 96375; 99285; J0696; J2405

== ENCOUNTER 2020-03-25 03:27 | Emergency (ER) | payer OTHER, MEDICAID ==
[~2020-03-25] VITALS: Ht 157.5 cm; Wt 55.0 kg
[~2020-03-25 03:27] MED LIST changes: +AZIT250T PO; +BENZ100C PO
[2020-03-25 03:49] LABS: BASO % 1 % (0-3); EOS # 0.1 x10^3/uL (0.0-0.7); EOS % 2 % (0-3); HEMATOCRIT 36.2 % (36.0-47.0); LYMPH # 1.6 x10^3/uL (1.0-4.8); LYMPH % 28 % (24-48); MEAN CORPUSCULAR HEMOGLOBIN 32 pg (25-35); MEAN CORPUSCULAR HGB CONC 33 g/dL (31-37); MEAN CORPUSCULAR VOLUME 97 fL (79-100); MONO # 0.7 x10^3/uL (0.0-1.1); MONO % 13 % (0-9); NEUT # 3.3 x10^3/uL (1.8-7.7); NEUT % 56 % (31-73); PLATELET COUNT 206 x10^3/uL (140-400); RED BLOOD COUNT 3.75 x10^6/uL (3.50-5.40); RED CELL DISTRIBUTION WIDTH 15.1 % (11.5-14.5); WHITE BLOOD COUNT 5.8 x10^3/uL (4.0-11.0)
--- NOTE | 2020-03-25 04:19 | PHYS DOC ---
Past Medical History Past Medical History: Bronchitis, COPD, Diabetes-Type II, Hypertension, Pneumonia, Renal Failure, Other Additional Past Medical Histor: c diff,drop foot syndrome, neuropathy Past Surgical History: Cholecystectomy, , Hysterectomy, Tonsillectomy, Tubal ligation, Other Additional Past Surgical Histo: bilat rotator cuff;dialysis shunt left forearm,L ANKLE ORIF Smoking Status: Former Smoker Alcohol Use: None Drug Use: None General Adult EDM: Chief Complaint: HYPOGLYCEMIA HPI: HPI: Patient is a 70 year old female who arrives via EMS with reported hypoglycemic episode. EMS states that upon their arrival patient was very lethargic and confused. Patient also diaphoretic. EMS states that blood sugar reading read low and patient was given a bag of D10. Patient's most recent blood sugar at 159 and they state patient oriented x4. Patient denies any complaints at this time. Patient is on dialysis and states that her last dialysis treatment was yesterday. [] Review of Systems: Review of Systems: Constitutional: Denies fever or chills. [] Respiratory: Denies cough or shortness of breath. [] Cardiovascular: Denies chest pain or edema. [] Integument: Denies rash. [] Neurologic: Denies headache, focal weakness or sensory changes. [] A full 10 point review of systems has been reviewed and is otherwise negative. Heart Score: Risk Factors: Risk Factors: DM, Current or recent (<one month) smoker, HTN, HLP, family history of CAD, obesity. Risk Scores: Score 0 - 3: 2.5% MACE over next 6 weeks - Discharge Home Score 4 - 6: 20.3% MACE over next 6 weeks - Admit for Clinical Observation Score 7 - 10: 72.7% MACE over next 6 weeks - Early Invasive Strategies Allergies: Allergies: Allergies Coded Allergies Type Severity Reaction Last Updated Verified No Known Drug Allergies 12/13/17 No Physical Exam: PE: Constitutional: Well developed, well nourished, no acute distress, non-toxic appearance. [] HENT: Normocephalic, atraumatic, bilateral external ears normal, oropharynx moist, no oral exudates, nose normal. [] Eyes: PERRLA, EOMI, conjunctiva normal, no discharge. [] Neck: Normal range of motion, no tenderness, supple, no stridor. [] Cardiovascular: Regular rate and rhythm [] Lungs & Thorax: Bilateral breath sounds clear to auscultation [] Abdomen: Bowel sounds normal, soft, no tenderness. [] Skin: Warm, dry, no erythema, no rash. [] Extremities: No tenderness, no cyanosis, no clubbing, ROM intact. [] Neurologic: Alert and oriented X 3, no focal deficits noted. [] Current Patient Data: Labs: Laboratory Tests Test 03/25/20 03:40 White Blood Count 5.8 x10^3/uL (4.0-11.0) Red Blood Count 3.75 x10^6/uL (3.50-5.40) Hemoglobin 12.0 g/dL (12.0-15.5) Hematocrit 36.2 % (36.0-47.0) Mean Corpuscular Volume 97 fL (79-100) Mean Corpuscular Hemoglobin 32 pg (25-35) Mean Corpuscular Hemoglobin Concent 33 g/dL (31-37) Red Cell Distribution Width 15.1 % (11.5-14.5) H Platelet Count 206 x10^3/uL (140-400) Neutrophils (%) (Auto) 56 % (31-73) Lymphocytes (%) (Auto) 28 % (24-48) Monocytes (%) (Auto) 13 % (0-9) H Eosinophils (%) (Auto) 2 % (0-3) Basophils (%) (Auto) 1 % (0-3) Neutrophils # (Auto) 3.3 x10^3/uL (1.8-7.7) Lymphocytes # (Auto) 1.6 x10^3/uL (1.0-4.8) Monocytes # (Auto) 0.7 x10^3/uL (0.0-1.1) Eosinophils # (Auto) 0.1 x10^3/uL (0.0-0.7) Basophils # (Auto) 0.0 x10^3/uL (0.0-0.2) Laboratory Tests 03/25/20 03:40 Vital Signs: Vital Signs Date Time Temp Pulse Resp B/P (MAP) Pulse Ox O2 Delivery O2 Flow Rate FiO2 03/25/20 03:47 97.4 65 20 130/58 (82) 100 Nasal Cannula 3.0 97.4 EKG: EKG: [] Radiology/Procedures: Radiology/Procedures: [] Course & Med Decision Making: Course & Med Decision Making Pertinent Labs and Imaging studies reviewed. (See chart for details) [] Dragon Disclaimer: Dragon Disclaimer: This electronic medical record was generated, in whole or in part, using a voice recognition dictation system. Departure Departure Impression: Primary Impression: Hypoglycemia Disposition: HOME, SELF-CARE Condition: STABLE Referrals: ARELI MATIAS MD (PCP) Patient Instructions: Hypoglycemia (Low Blood Sugar) Justicifation of Admission Dx: Justifications for Admission: Justification of Admission Dx: N/A MULU MOSLEY Jr. DO Mar 25, 2020 04:19
[2020-03-25 05:22] LABS: CREATININE 5.7 mg/dL (0.6-1.0); GFR 7.3; POTASSIUM 4.6 mmol/L (3.5-5.1)
[2020-03-25 05:28] LABS: ALBUMIN 2.7 g/dL (3.4-5.0); ALBUMIN/GLOBULIN RATIO 0.7 (1.0-1.7); TOTAL BILIRUBIN 0.5 mg/dL (0.2-1.0); TOTAL PROTEIN 6.8 g/dL (6.4-8.2)
[2020-03-25 05:42] VITALS: BP 132/60
== END 2020-03-25 06:05 | disposition home or self-care (01) ==
LOC: ER 03:27
DX: E11.649 Type 2 diabetes mellitus with hypoglycemia without coma (principal); R41.0 Disorientation, unspecified; R53.83 Other fatigue; I12.9 Hypertensive chronic kidney disease with stage 1 through stage 4 chronic kidney disease, or unspecified chronic kidney disease; J44.9 Chronic obstructive pulmonary disease, unspecified; N18.9 Chronic kidney disease, unspecified; E11.40 Type 2 diabetes mellitus with diabetic neuropathy, unspecified; Z87.891 Personal history of nicotine dependence; Z90.49 Acquired absence of other specified parts of digestive tract; Z90.710 Acquired absence of both cervix and uterus; Z98.51 Tubal ligation status; Z99.2 Dependence on renal dialysis
CPT/HCPCS: 36415; 80053; 82962; 85025; 99285

== ENCOUNTER 2021-09-27 01:07 | Emergency (ER) | payer OTHER, MEDICAID ==
[~2021-09-27] VITALS: Ht 152.4 cm; Wt 54.5 kg
[~2021-09-27 01:07] MED LIST changes: -ALEN70TA6 PO; +ALEN70TA71 PO; +CYCL10TA19 PO; -CYCL10TA2 PO; -DOXY100C2 PO; +DOXY100C3 PO; -OMEP40CA45 PO; +OMEP40CA7 PO
--- NOTE | 2021-09-27 01:25 | ED.ADGEN ---
Past Medical History Past Medical History: Bronchitis, COPD, Diabetes-Type II, Hypertension, Pneumonia, Renal Failure, Other Additional Past Medical Histor: c diff,drop foot syndrome, neuropathy Past Surgical History: Cholecystectomy, , Hysterectomy, Tonsillectomy, Tubal ligation, Other Additional Past Surgical Histo: bilat rotator cuff;dialysis shunt left forearm,L ANKLE ORIF Smoking Status: Former Smoker Alcohol Use: None Drug Use: None General Adult EDM: Chief Complaint: ABDOMINAL PAIN HPI: HPI: Patient is a 71 year old female brought in by EMS from home for abdominal pain that started this morning. Patient states that over the past few hours she has had nausea and diarrhea. Is complaining of upper abdominal pain. Patient also has a productive cough. Was started on an antibiotic 2 days ago by her primary care provider but is unsure what antibiotic she is taking. Denies any fevers. Patient states the pain radiates to her substernal area. Has a history of ESRD on hemodialysis Tuesday and had her dialysis yesterday. Has had both Covid vaccines plus booster and her influenza vaccine this year. States th at her grandchildren have had upper respiratory symptoms of the past few days as well Review of Systems: Review of Systems: All other systems within normal limits except for as noted in the HPI Current Medications: Current Medications Medications (Trade) Dose Ordered Sig/Bill Start Time Stop Time Status Last Admin Dose Admin Guaifenesin/ Codeine Phosphate (Robitussin Ac) 5 ml PRN Q6HRS PRN 09/27/21 01:30 09/27/21 01:45 5 ML Info (CONTRAST GIVEN -- Rx MONITORING) 1 each PRN DAILY PRN 09/27/21 02:15 09/29/21 02:14 Iohexol (Omnipaque 300 Mg/ml) 75 ml 1X ONCE 09/27/21 02:15 09/27/21 02:16 DC 09/27/21 02:28 75 ML Allergies: Allergies: Allergies Coded Allergies Type Severity Reaction Last Updated Verified No Known Drug Allergies 12/13/17 No Physical Exam: PE: Constitutional: Well developed, well nourished, no acute distress, non-toxic appearance. [] HENT: Normocephalic, atraumatic, bilateral external ears normal, nose normal. [] Eyes: PERRLA, conjunctiva normal, no discharge. [] Neck: No rigidity, supple, no stridor. [] Cardiovascular: Regular rate and rhythm, brisk cap refill, dialysis fistula on left for [] Lungs & Thorax: Non labored symmetric respirations, no tachypnea or respiratory distress bilateral rhonchi [] Abdomen: Soft, nondistended, epigastric tenderness without guarding. Skin: Warm, dry, no erythema, no rash. [] Back: Unremarkable Extremities: No deformities, range of motion grossly intact, no lower extremity edema [] Neurologic: Alert and oriented X 3, no focal deficits noted. [] Psychologic: Affect normal, judgement normal, mood normal. [] Current Patient Data: Labs: Laboratory Tests Test 09/27/21 01:27 09/27/21 01:47 White Blood Count 11.9 x10^3/uL (4.0-11.0) H Red Blood Count 3.50 x10^6/uL (3.50-5.40) Hemoglobin 11.0 g/dL (12.0-15.5) L Hematocrit 34.1 % (36.0-47.0) L Mean Corpuscular Volume 98 fL (79-100) Mean Corpuscular Hemoglobin 31 pg (25-35) Mean Corpuscular Hemoglobin Concent 32 g/dL (31-37) Red Cell Distribution Width 15.4 % (11.5-14.5) H Platelet Count 137 x10^3/uL (140-400) L Neutrophils (%) (Auto) 89 % (31-73) H Lymphocytes (%) (Auto) 5 % (24-48) L Monocytes (%) (Auto) 5 % (0-9) Eosinophils (%) (Auto) 0 % (0-3) Basophils (%) (Auto) 1 % (0-3) Neutrophils # (Auto) 10.6 x10^3/uL (1.8-7.7) H Lymphocytes # (Auto) 0.6 x10^3/uL (1.0-4.8) L Monocytes # (Auto) 0.6 x10^3/uL (0.0-1.1) Eosinophils # (Auto) 0.0 x10^3/uL (0.0-0.7) Basophils # (Auto) 0.1 x10^3/uL (0.0-0.2) Segmented Neutrophils % 93 % (35-66) H Lymphocytes % 6 % (24-48) L Eosinophils % 1 % (0-5) Toxic Granulation Slight Platelet Estimate Decreased (ADEQUATE) Sodium Level 144 mmol/L (136-145) Potassium Level 3.9 mmol/L (3.5-5.1) Chloride Level 103 mmol/L (98-107) Carbon Dioxide Level 29 mmol/L (21-32) Anion Gap 12 (6-14) Blood Urea Nitrogen 42 mg/dL (7-20) H Creatinine 5.5 mg/dL (0.6-1.0) H Estimated GFR (Cockcroft-Gault) 7.6 BUN/Creatinine Ratio 8 (6-20) Glucose Level 137 mg/dL (70-99) H Lactic Acid Level 0.8 mmol/L (0.4-2.0) Calcium Level 8.1 mg/dL (8.5-10.1) L Phosphorus Level 4.9 mg/dL (2.6-4.7) H Magnesium Level 1.9 mg/dL (1.8-2.4) Total Bilirubin 0.8 mg/dL (0.2-1.0) Aspartate Amino Transferase (AST) 28 U/L (15-37) Alanine Aminotransferase (ALT) 15 U/L (14-59) Alkaline Phosphatase 373 U/L (46-116) H Troponin I High Sensitivity 30 ng/L (4-50) LG-Hwl-Q-Type Natriuretic Peptide > 30264 pg/mL (0-124) H Total Protein 6.7 g/dL (6.4-8.2) Albumin 3.0 g/dL (3.4-5.0) L Albumin/Globulin Ratio 0.8 (1.0-1.7) L Lipase 22 U/L (73-393) L D-Dimer (Ivett) 0.71 ug/mlFEU (0.00-0.50) H Influenza Type A Antigen Negative (NEGATIVE) Influenza Type B Antigen Negative (NEGATIVE) SARS-CoV-2 Antigen (Rapid) Negative (NEGATIVE) Laboratory Tests 09/27/21 01:27 Laboratory Tests 09/27/21 01:27 Vital Signs: Vital Signs Date Time Temp Pulse Resp B/P (MAP) Pulse Ox O2 Delivery O2 Flow Rate FiO2 09/27/21 01:53 82 22 155/67 (96) 98 Nasal Cannula 2.0 09/27/21 01:10 98.9 98.9 EKG: EKG: [] Heart Score: C/O Chest Pain: No HEART Score for Chest Pain: HEART Score for Chest Pain Response (Comments) Value History Slighlty/Non-Suspicious 0 ECG Nonspecific Repolarizatio 1 Age > 65 2 Risk Factors >3 Risk Factors or Hx CAD 2 Troponin < Normal Limit 0 Total 5 Risk Factors: Risk Factors: DM, Current or recent (<one month) smoker, HTN, HLP, family history of CAD, obesity. Risk Scores: Score 0 - 3: 2.5% MACE over next 6 weeks - Discharge Home Score 4 - 6: 20.3% MACE over next 6 weeks - Admit for Clinical Observation Score 7 - 10: 72.7% MACE over next 6 weeks - Early Invasive Strategies Radiology/Procedures: Radiology/Procedures: [facility] [address] [place] [address] IMAGING REPORT Signed PATIENT: ROBBIN LYNN ACCOUNT: [id number] : 1950 LOCATION: ER AGE: 71 SEX: F EXAM STATUS: REG ER ORD. PHYSICIAN: JARAD RANDALL MD REASON: cough, upper abd pain, OMNI 300 75 ML IV PROCEDURE: CT CHEST ABD PELVIS W/CONTRAST CT CHEST+ABD+PELVIS W Clinical Indication: Cough, abdominal pain COMPARISON: Chest radiograph 09/01/2019. CT chest 12/18/2018. CT abdomen pelvis 12/04/2017 TECHNIQUE: Multiple contiguous axial images were obtained throughout the chest, abdomen, and pelvis with the use of IV contrast. Axial images were reformatted into coronal and sagittal planes. 75 mL Omnipaque 300 was administered. One or more of the following dose reduction techniques were utilized: Automated exposure control (AEC), Adjustment of mA and/or kV according to patient size, Use of iterative reconstruction technique such as ASiR, CT scan done according to ALARA and image gently/image wisely. Findings: The thyroid is symmetric. Stable mediastinal lymphadenopathy, for example stable enlarged right lower paratracheal lymph node measuring 1.5 cm short axis (series 2 image 19) Atherosclerosis of the thoracic aorta and branch vessels. Cardiomegaly. Coronary artery atherosclerotic disease. There is no pericardial effusion. Left basilar endobronchial debris Bilateral groundglass opacities with left lower lobe consolidations. Interlobular septal thickening. Left lower lobe calcified granuloma. Trace pleural effusions. There is no pneumothorax. The liver, spleen, pancreas, and adrenal glands are unremarkable. Cholecystectomy. Bilateral renal atrophy with numerous tiny renal cysts. Left renal lower pole 1.5 cm enhancing lesion There is no significant mesenteric or retroperitoneal adenopathy identified. There is no evidence of free intraperitoneal fluid or pneumoperitoneum. Visualized portions of the bowel are grossly unremarkable. Diffuse aortoiliac atherosclerotic disease. Bladder is decompressed. There is no significant pelvic ascites. No significant iliac or inguinal adenopathy is identified. Similar configuration of multilevel chronic compression deformities, worst at T12 with vertebra plana. Advanced thoracolumbar spondylosis. Body wall edema. IMPRESSION: 1. Bilateral groundglass opacities with interlobular septal thickening, probably interstitial edema. 2. Left lower lobe consolidations could relate to subsegmental atelectasis, aspiration, or infection. Left basilar endobronchial debris may represent mucous plugging or aspirated content. 3. Trace pleural effusions. 4. Left renal lower pole 1.5 cm lesion. While this could represent a focus of renal cortex which is less atrophic than the surrounding tissue, a true enhancing neoplasm is not excluded. This could be better characterized with contrast-enhanced MRI. Electronically signed by: Joyce Murrieta MD (09/27/2021 2:59 AM) [facility] DICTATED and SIGNED BY: JOYCE MURRIETA MD DATE: 09/27/21 [id number] 0 [] Course & Med Decision Making: Course & Med Decision Making Pertinent Labs and Imaging studies reviewed. (See chart for details) Patient feeling better after cough medicines and resting comfortably, has not had any episodes of emesis in the emergency department.. Patient has a pneumonia with some mucus plugging. Patient has a nebulizer at home that she albert s been using occasionally. Discussed with patient using nebulizer every 4 hours and will prescribe a cough medicine and steroids for her COPD. Instructed to follow-up with her primary care tomorrow morning and return if symptoms worsen. [] Dragon Disclaimer: Abdullahi Disclaimer: This electronic medical record was generated, in whole or in part, using a voice recognition dictation system. Departure Departure Impression: Primary Impression: Pneumonia Disposition: HOME / SELF CARE / HOMELESS Condition: STABLE Referrals: ARELI MATIAS MD (PCP) Patient Instructions: Pneumonia, Adult Scripts Guaifenesin/Codeine Phosphate (Codeine-Guaifen 10-100 mg/5 ml) 120 Ml Liquid 5 ML PO PRN Q6HRS PRN for cough and congestion MDD 20 Milliliter(s) for 6 Days, #120 ML 0 Refills Prov: JARAD RANDALL MD 09/27/21 Prednisone (PREDNISONE) 50 Mg Tablet 1 TAB PO DAILY for steroid for 4 Days, #4 TAB Prov: JARAD RANDALL MD 09/27/21 JARAD RANDALL MD Sep 27, 2021 01:25
[2021-09-27] MEDS ORDERED: guaiFENesin/CODEINE 100mg/10mg 5 ML LIQUID PO PRN (01:30)
[2021-09-27 01:39] LABS: BASO # 0.1 x10^3/uL (0.0-0.2); BASO % 1 % (0-3); EOS % 0 % (0-3); HEMATOCRIT 34.1 % (36.0-47.0); LYMPH # 0.6 x10^3/uL (1.0-4.8); LYMPH % 5 % (24-48); MEAN CORPUSCULAR HEMOGLOBIN 31 pg (25-35); MEAN CORPUSCULAR HGB CONC 32 g/dL (31-37); MEAN CORPUSCULAR VOLUME 98 fL (79-100); MONO # 0.6 x10^3/uL (0.0-1.1); MONO % 5 % (0-9); NEUT # 10.6 x10^3/uL (1.8-7.7); NEUT % 89 % (31-73); PLATELET COUNT 137 x10^3/uL (140-400); RED CELL DISTRIBUTION WIDTH 15.4 % (11.5-14.5); WHITE BLOOD COUNT 11.9 x10^3/uL (4.0-11.0)
[2021-09-27 01:48] LABS: CALCIUM 8.1 mg/dL (8.5-10.1); CREATININE 5.5 mg/dL (0.6-1.0); GFR 7.6; POTASSIUM 3.9 mmol/L (3.5-5.1)
[2021-09-27 01:54] LABS: ALBUMIN/GLOBULIN RATIO 0.8 (1.0-1.7); MAGNESIUM 1.9 mg/dL (1.8-2.4); PHOSPHORUS 4.9 mg/dL (2.6-4.7); TOTAL BILIRUBIN 0.8 mg/dL (0.2-1.0); TOTAL PROTEIN 6.7 g/dL (6.4-8.2)
[2021-09-27 02:05] LABS: % EOS 1 % (0-5); % LYMPHS 6 % (24-48); % SEGS 93 % (35-66)
[2021-09-27 02:06] LABS: PLT ESTIMATE DECREASED (ADEQUATE); TOXIC GRANULATION SLIGHT
[2021-09-27] MEDS ORDERED: CONTRAST GIVEN. MC PRN (02:15)
[2021-09-27] MEDS ORDERED: IOHEXOL 300 MG/ML 100ML VIAL. IV ONE (02:15)
[2021-09-27 02:33] LABS: INFLUENZA A PATIENT NEGATIVE (NEGATIVE); INFLUENZA B PATIENT NEGATIVE (NEGATIVE)
--- NOTE | 2021-09-27 03:02 | RAD ---
CT CHEST+ABD+PELVIS W Clinical Indication: Cough, abdominal pain COMPARISON: Chest radiograph 09/01/2019. CT chest 12/18/2018. CT abdomen pelvis 12/04/2017 TECHNIQUE: Multiple contiguous axial images were obtained throughout the chest, abdomen, and pelvis with the use of IV contrast. Axial images were reformatted into coronal and sagittal planes. 75 mL Omnipaque 300 was administered. One or more of the following dose reduction techniques were utilized: Automated exp osure control (AEC), Adjustment of mA and/or kV according to patient size, Use of iterative reconstru ction technique such as ASiR, CT scan done according to ALARA and image gently/image wisely. Findings: The thyroid is symmetric. Stable mediastinal lymphadenopathy, for example stable enlarged right lower paratracheal lymph node measuring 1.5 cm short axis (series 2 image 19) Atherosclerosis of the thoracic aorta and branch vessels. Cardiomegaly. Coronary artery atherosclerot ic disease. There is no pericardial effusion. Left basilar endobronchial debris Bilateral groundglass opacities with left lower lobe consolidations. Interlobular septal thickening. Left lower lobe calcified granuloma. Trace pleural effusions. There is no pneumothorax. The liver, spleen, pancreas, and adrenal glands are unremarkable. Cholecystectomy. Bilateral renal at rophy with numerous tiny renal cysts. Left renal lower pole 1.5 cm enhancing lesion There is no signi ficant mesenteric or retroperitoneal adenopathy identified. There is no evidence of free intraperito lamar fluid or pneumoperitoneum. Visualized portions of the bowel are grossly unremarkable. Diffuse a ortoiliac atherosclerotic disease. Bladder is decompressed. There is no significant pelvic ascites. No significant iliac or inguinal a denopathy is identified. Similar configuration of multilevel chronic compression deformities, worst at T12 with vertebra plana . Advanced thoracolumbar spondylosis. Body wall edema. IMPRESSION: 1. Bilateral groundglass opacities with interlobular septal thickening, probably interstitial edema. 2. Left lower lobe consolidations could relate to subsegmental atelectasis, aspiration, or infection. Left basilar endobronchial debris may represent mucous plugging or aspirated content. 3. Trace pleural effusions. 4. Left renal lower pole 1.5 cm lesion. While this could represent a focus of renal cortex which is l ess atrophic than the surrounding tissue, a true enhancing neoplasm is not excluded. This could be be tter characterized with contrast-enhanced MRI. Electronically signed by: Joe Murrieta MD (09/27/2021 2:59 AM) [facility]
[2021-09-27] MEDS ORDERED: PRED50TA PO (03:24)
[2021-09-27] MEDS ORDERED: GUAI120L35 PO (03:24)
[2021-09-27] MEDS ORDERED: predniSONE 10 MG TABLET PO ONE (03:30)
[2021-09-27 03:38] VITALS: BP 144/75
--- NOTE | 2021-09-27 06:45 | EKG ---
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
--- NOTE | 2021-09-28 10:38 | NUR ---
IP: Informed pt's daughter of negative covid test. Pt verbalized understanding.
== END 2021-09-27 03:50 | disposition home or self-care (01) ==
LOC: ER 01:07
DX: J18.9 Pneumonia, unspecified organism (principal); Z20.822 Contact with and (suspected) exposure to COVID-19; R10.13 Epigastric pain; R19.7 Diarrhea, unspecified; R11.0 Nausea; E11.22 Type 2 diabetes mellitus with diabetic chronic kidney disease; I12.9 Hypertensive chronic kidney disease with stage 1 through stage 4 chronic kidney disease, or unspecified chronic kidney disease; N18.9 Chronic kidney disease, unspecified; J44.9 Chronic obstructive pulmonary disease, unspecified; E11.40 Type 2 diabetes mellitus with diabetic neuropathy, unspecified; Z90.49 Acquired absence of other specified parts of digestive tract; Z90.710 Acquired absence of both cervix and uterus; Z98.51 Tubal ligation status; Z87.891 Personal history of nicotine dependence
CPT/HCPCS: 36415; 71260; 74177; 80053; 83605; 83690; 83735; 83880; 84100; 84484; 85007; 85025; 85379; 87040; 87426; 87804; 93005; 99285; J7512; Q9967; U0003; U0005